=== PATIENT | female | born 1955 | race Caucasian/White ===

== ENCOUNTER 2016-12-29 05:06 | Day surgery (SDC) | payer OTHER ==
[2016-12-25 08:03] VITALS: BMI 36.0
[~2016-12-29] VITALS: Ht 152.4 cm; Wt 85.0 kg
[~2016-12-29 05:06] MED LIST: ALEN70TA2 PO; ATOR-24 PO; CHOL100027 PO; GABA-113 PO; HYDR-3983 PO; HYDR12.56 PO; LEVO100T7 PO; METO25TA3 PO; OXYB5TAB PO; PANT40TA PO; SERT-234 PO; SERT50TA PO; TRAZ100T29 PO
[2016-12-29] MEDS ORDERED: LORA-741 PO (05:42)
[2016-12-29 05:45] VITALS: BP 166/79; PULSE 69; TEMP 36.5; O2SAT 98; Ht 152.4 cm; Wt 85.0 kg
[2016-12-29] MEDS ORDERED: CEFAZOLIN 2000MG IV PUSH 10 ML IV SCH (06:00)
[2016-12-29] MEDS ORDERED: LACTATED RINGER'S 1000ML 1,000 ML IV SCH (06:00)
[2016-12-29] MEDS ORDERED: PROPOFOL IV EMULSION 10 MG/ML 20 ML VIAL IV ONE (06:49)
[2016-12-29] MEDS ORDERED: LIDOCAINE HCL 2% 2 ML VIAL (20MG/ML) ONE (06:49)
[2016-12-29] MEDS ORDERED: FENTANYL CITRATE INJ 50 MCG/1 ML 2 ML VIAL ONE (06:50)
[2016-12-29] MEDS ORDERED: MIDAZOLAM HCL 1 MG/ML 2ML VIAL ONE (06:50)
[2016-12-29] MEDS ORDERED: BUPIVACAINE 0.5 % 5 MG/1 ML MPF 30ML VIAL ONE (07:11)
[2016-12-29] MEDS ORDERED: BACITRACIN OINT 15 GM TUBE ONE (07:11)
[2016-12-29] MEDS ORDERED: LIDOCAINE HCL 1% 20 ML VIAL ONE (07:11)
--- NOTE | 2016-12-29 07:11 | History & Physical Bridge Note ---
H&P Re-Evaluation Bridge Note: I have examined the patient, reviewed the History & Physical and in the interval since the performance of the History & Physical I have noted the following changes of clinical significance: No changes noted
[2016-12-29] MEDS ORDERED: MEPERIDINE HCL 25 MG/ML CARP IV PRN (08:30)
[2016-12-29] MEDS ORDERED: EpHEDrine SULFATE INJ 50 MG/ML AMP IV PRN (08:30)
[2016-12-29] MEDS ORDERED: ONDANSETRON INJ 2 MG/ML 2 ML VIAL IV PRN ×2 (08:30→09:00)
[2016-12-29] MEDS ORDERED: HYDROmorphone INJ 1 MG/ML SYR IV PRN (08:30)
[2016-12-29] MEDS ORDERED: LABETALOL HCL IV 5 MG/ML 20ML IV PRN (08:30)
[2016-12-29] MEDS ORDERED: ATROPINE SULFATE 0.1 MG/ML 5ML SYR IV PRN (08:30)
--- NOTE | 2016-12-29 08:41 | DIAGNOSTIC IMAGING REPORT ---
CHEST 1 VIEW FRONTAL CLINICAL HISTORY: 61 years-old Female presenting with RT SIDE APORT INSERTION. TECHNIQUE: 2 fluoroscopic spot image(s) obtained as part of an intraoperative procedure. COMPARISON: 05/11/2013. FINDINGS/IMPRESSION: Right internal jugular Mediport terminates in the lower SVC. No kink or breakage of the line. Please see surgical report for further details. Fluoroscopy dosage (mGy): Not available. Fluoroscopy time: 4.9 seconds. Number of fluoroscopic spot images: 2. Electronically signed by: Devaughn Ozuna M.D. 12/29/2016 8:39 AM Dictated Date/Time: 12/29/2016 8:38 AM
--- NOTE | 2016-12-29 08:42 | [facility] Post Operative Brief Note ---
Immediate Operative Summary Operative Date Dec 29, 2016. Pre-Operative Diagnosis Malignant Neoplasm of the Uterus Post-Operative Diagnosis Malignant Neoplasm of the Uterus Procedure(s) Performed A Port Insertion right internal jugular vein Surgeon Dr. Simms Fire Alarm Dispatcher Surgeon(s) Julissa Perez PA-C Estimated Blood Loss 5 cc Findings patent right jugular vein Fluids (cc crystalloids) 700ml Specimens none per surgeon Drains none Anesthesia sedation + local Complication(s) None Disposition Recovery Room / PACU
[2016-12-29] MEDS: FENTANYL CITRATE INJ 50 MCG/1 ML 2 ML VIAL IV PRN ×2 (08:54→09:12)
--- NOTE | 2016-12-29 08:56 | Discharge Instructions ---
Discharge Instructions Date of Service Dec 29, 2016. Admission Reason for Admission: Malignant Neoplasm Of The Uterus Discharge Discharge Diagnosis / Problem: same Discharge Goals Goal(s): Decrease discomfort, Improve function Activity Recommendations Activity Limitations: as noted below No heavy lifting over 10 pounds for 1 week No repetitive movements with the right arm for 1 week no strenuous activity for 1 week No submerging incisions underwater for 2 weeks ( no bathing, swimming, or hot tubs) No driving while taking narcotic pain medication or until you are pain free . Instructions / Follow-Up Instructions / Follow-Up You may shower in 3 days, sponge bath and wash hair in meantime. Keep dressings on for 3 days and then remove. If they plan to use your port sooner that is okay just make sure you keep incision clean and dry and covered for the next 3 days. Leave steri strips on upper incision for 7 days and then remove Follow-up with Dr. Simms in 1 week or as scheduled, please call office at [phone] if you do not already have an appointment Current Hospital Diet Patient's current hospital diet: Discharge Diet Recommended Diet: Regular Diet Procedures Procedures Performed: A Port Insertion right internal jugular vein Pending Studies Studies pending at discharge: no Medical Emergencies . Who to Call and When: Medical Emergencies: If at any time you feel your situation is an emergency, please call 911 immediately. . Non-Emergent Contact Non-Emergency issues call your: Primary Care Provider, Surgeon Call Non-Emergent contact if: you have a fever, temperature is above 101.5, your pain is not controlled, your pain is worsening, wound has increased drainage, wound has increased redness, wound has increased pain . "Provider Documentation" section prepared by Julissa Perez. . VTE Core Measure Inpt VTE Proph given/why not?: SCD's [place] Drug Monitoring Program Search Results: patient reviewed within database, no issues identified
[2016-12-29] MEDS ORDERED: OXYC-57 PO (08:57)
[2016-12-29] MEDS ORDERED: ACETAMINOPHEN 325 MG TAB PO PRN (09:00)
[2016-12-29] MEDS ORDERED: MoRPHine SULFATE 4 MG/ML 1 ML CARP\\VIAL IV PRN (09:00)
[2016-12-29] MEDS ORDERED: OXYCODONE/ACETAMINOPHEN 5-325 TAB PO PRN ×2 (09:00)
[2016-12-29] MEDS ORDERED: MoRPHine SULFATE 2 MG/ML CARP IV PRN ×2 (09:00)
--- NOTE | 2016-12-29 09:07 | DIAGNOSTIC IMAGING REPORT ---
CHEST ONE VIEW PORTABLE CLINICAL HISTORY: 61 years-old Female presenting with s/p right IJ aport insertion. TECHNIQUE: Portable upright AP view of the chest was obtained. COMPARISON: 05/11/2013. FINDINGS: Right internal jugular Mediport terminates in the upper SVC. Atherosclerosis of aortic arch. Mild prominence of the cardiac silhouette, slightly increased from prior. Mild prominence of pulmonary vasculature. Lungs and pleural spaces clear. Osseous structures normal. Cholecystectomy clips. IMPRESSION: 1. Interval placement of right internal jugular Mediport, which terminates in the upper SVC. No pneumothorax. 2. Mild cardiomegaly suggested with possible volume overload. Electronically signed by: Devaughn Ozuna M.D. 12/29/2016 9:06 AM Dictated Date/Time: 12/29/2016 9:05 AM
[2016-12-29 09:46] VITALS: BP 134/73; PULSE 55; TEMP 36.4; O2SAT 93
[2016-12-29 10:14] VITALS: BP 127/78; PULSE 55; TEMP 36.3; O2SAT 93
--- NOTE | 2016-12-29 10:18 | Anesthesiology Progress Note ---
Anesthesia Post Op Note Date & Time Dec 29, 2016 at 10:18 Vital Signs Pain Intensity: 3 Vital Signs Past 12 Hours Date Time Temp Pulse Resp B/P (MAP) Pulse Ox O2 Delivery O2 Flow Rate FiO2 12/29/16 10:14 36.3 55 13 127/78 93 Room Air 0 12/29/16 09:46 36.4 55 18 134/73 93 Room Air 0 12/29/16 09:25 36.3 58 13 130/70 93 Room Air 12/29/16 09:15 69 12 123/84 92 Room Air 12/29/16 09:05 73 17 125/55 95 Oxymask 10 12/29/16 08:55 68 17 142/83 96 Oxymask 10 12/29/16 08:49 36.1 63 16 121/76 99 Oxymask 10 12/29/16 05:45 36.5 69 18 166/79 (108) 98 Room Air Notes Mental Status: alert / awake / arousable, participated in evaluation Pt Amnestic to Procedure: Yes Nausea / Vomiting: adequately controlled Pain: adequately controlled Airway Patency, RR, SpO2: stable & adequate BP & HR: stable & adequate Hydration State: stable & adequate Anesthetic Complications: no major complications apparent
--- NOTE | 2016-12-29 12:06 | OPERATIVE REPORT ---
DATE OF OPERATION: 12/29/2016 PREOPERATIVE DIAGNOSIS: The patient needs a yovv-A-nzabcadyi for chemotherapy. POSTOPERATIVE DIAGNOSIS: Same. OPERATION: Zgcr-M-oqtrqyjsz of right internal jugular vein. SURGEON: Julio C Simms MD FREEZING MACHINE OPERATOR: Julissa Perez PA-C ANESTHESIA: Conscious sedation plus local. ESTIMATED BLOOD LOSS: About 5 mL. IV FLUIDS: 700 mL. FINDINGS: Patent right internal jugular vein. COMPLICATIONS: None. INDICATIONS FOR THE PROCEDURE: This is a 61-year-old female who is referred for [id number] for her chemotherapy. I did talk to the patient about the benefit, risks, and alternate procedure. I indicated the risks may include, but not limited to such as bleeding, infection, injury to the lung, blood clot, arrhythmia of the heart, even or dysfunction, etc. The patient understands. She signed informed consent and I answered all questions. DETAILS OF PROCEDURE: We brought the patient to the OR and put the patient in the supine position. The patient received SCD on bilateral legs to prevent DVT. Also, the patient received 2 grams Ancef IV for prophylactic antibiotic. The patient received conscious sedation by the anesthesiology. The patient's right upper chest and right neck were prepped and draped in routine sterile fashion and after time out, we put the patient in Trendelenburg position and used an ultrasound to locate the right internal jugular vein and then, using 1% lidocaine, numbed the puncture site on the right neck. Then, using a 16-gauge needle, punctured the right internal jugular vein under ultrasound guide, easy blood returned and passed the wire. Then, we used a fluoro to confirm the wire located in the superior vena cava. Then, the injection of 1% lidocaine on the right upper chest and made about 3-cm incision on the right upper chest to create the pouch for the port. Hemostasis was obtained. Then, we passed the catheter through the tunnel we created in the right upper chest, the incision to the right neck and then we passed the sheath through the wire and dilator, removed the wire and passed the catheter through the dilator sheath, removed the sheath and then we connected the port on the right upper chest. I used 2-0 Prolene to fix the port on the right upper chest wall. Then, we used fluoroscopy to confirm the tip of the catheter located at the junction between the right internal jugular vein and superior vena cava near the right atrium. Then, I injected the heparin with saline through the port, easily blood returned. We injected 10 mL heparin with saline to flush the port, easy to flush and then we closed the incision by using 2-0 Vicryl continuous running and closed skin by using 4-0 Vicryl continuous running. We put the dressing on. The patient tolerated the procedure well. All instrument, needle and sponge count correct x2 at the end of case and the patient transferred to recovery room in stable condition. After procedure, I did talk to the patient and family member about the OR finding and procedure we did and the patient's family member understands. I also gave them postop care instructions. I attest to the content of the Intraoperative Record and any orders documented therein. Any exceptions are noted below. ALEJANDRO
[2016-12-30] MEDS ORDERED: CEFAZOLIN SOD 2000MG/10 ML IV PUSH IV ONE (06:00)
== END 2016-12-29 10:30 | disposition home or self-care (01) ==
LOC: C.ACU 05:06
PROVIDERS: ATTEND Surgery
DX: C55 Malignant neoplasm of uterus, part unspecified (principal); I10 Essential (primary) hypertension; E78.5 Hyperlipidemia, unspecified; E11.9 Type 2 diabetes mellitus without complications; E03.9 Hypothyroidism, unspecified; K91.2 Postsurgical malabsorption, not elsewhere classified; I80.299 Phlebitis and thrombophlebitis of other deep vessels of unspecified lower extremity; D68.51 Activated protein C resistance; E53.8 Deficiency of other specified B group vitamins; M81.0 Age-related osteoporosis without current pathological fracture; M17.10 Unilateral primary osteoarthritis, unspecified knee; F32.9 Major depressive disorder, single episode, unspecified; Z98.84 Bariatric surgery status; Z79.899 Other long term (current) drug therapy

== ENCOUNTER 2017-01-08 13:34 | Inpatient (IN) | payer OTHER ==
[~2017-01-08] VITALS: Ht 152.4 cm; Wt 82.2 kg
[~2017-01-08 13:34] MED LIST changes: +LORA-741 PO; +OXYC-57 PO
--- NOTE | 2017-01-08 14:08 | EMERGENCY ROOM VISIT NOTE ---
History First contact with patient: 13:44 Chief Complaint: ILLNESS Stated Complaint: LATHERGIC,DISORIENTED,NEEDS HELP TO GET AROUND History of Present Illness The patient is a 61 year old female who presents to the Emergency Room with complaints of confusion at the patient's family noticed earlier today. She is also been significantly weak. The patient has a history of uterine cancer. She started chemotherapy last week. She also reports nausea without vomiting. She has also had some diarrhea. She denies any pain. No infectious symptoms such as cough or sore throat. No sick contacts. No reports of a fever at home. The patient's daughter reports that she does have a history of bacteremia. Review of Systems 10 system review performed and negative unless noted in HPI or below Past Medical/Surgical History Medical Problems: (1) Benign hypertension (2) Dehydration (3) Diabetes mellitus type 2 (4) Dyslipidemia (5) Electrolyte abnormality (6) Hypothyroidism (7) Localized, primary osteoarthritis of the lower leg (8) Total replacement of hip Family History Patient reports no known family medical history. Social History Smoking Status: Never Smoker Alcohol Use: none Drug Use: none Marital Status: Occupation Status: disabled Current/Historical Medications Scheduled Alendronate Sodium (Fosamax), 70 MG PO WK Atorvastatin (Lipitor), 40 MG PO HS Cholecalciferol (Vitamin D 1000 Unit), 4,000 INTER.UNIT PO DAILY Gabapentin (Neurontin), 300 MG PO TID Hydrochlorothiazide (Hctz), 12.5 MG PO DAILY Hydrocodone/Acetaminophen 7.5MG/325MG ([place] 7.5MG/325MG), 1 TABLET PO TID Levothyroxine Sodium (Synthroid), 100 MCG PO DAILY Lorazepam (Ativan), 0.5 MG PO TID Metoprolol Succ (Toprol Xl) (Toprol-Xl), 50 MG PO DAILY Oxybutynin Chloride (Oxybutynin Chloride Er), 10 MG PO DAILY Pantoprazole (Protonix), 40 MG PO QAM Sertraline (Zoloft), 50 MG PO QAM Sertraline (Zoloft), 100 MG PO QAM Trazodone Hcl (Trazodone), 100 MG PO HS Scheduled PRN Oxycodone/Acetaminophen 5MG/325MG (Percocet 5MG/325MG), 1 TABLET PO Q6H PRN for Pain Physical Exam Vital Signs Date Time Temp Pulse Resp B/P (MAP) Pulse Ox O2 Delivery O2 Flow Rate FiO2 01/08/17 15:35 37.0 57 16 131/85 95 Room Air 01/08/17 13:38 36.4 86 18 133/89 92 Room Air Physical Exam VITALS: Vitals are noted on the nurse's note and reviewed by myself. Vital signs stable. GENERAL: 61-year-old female, in no acute distress, nondiaphoretic, SKIN: The skin was dry HEAD: Normocephalic atraumatic. MOUTH: Mucous membranes slightly dry NECK: Supple without nuchal rigidity. No JVD. HEART: Regular rate and rhythm without murmurs gallops or rubs. LUNGS: Clear to auscultation bilaterally without wheezes, rales or rhonchi. No accessory muscle use. ABDOMEN: Positive bowel sounds x 4.Soft, tenderness palpation in the epigastric region, without organomegaly. No guarding or rebound tenderness. MUSCULOSKELETAL: No muscle atrophy, erythema, or edema noted. Overall weakness noted. No focal weakness. NEURO: Patient was alert and oriented to person place and time. No focal neurological deficits. Medical Decision & Procedures ER Provider Diagnostic Interpretation: CT head without contrast Patient Name: TACOS AGUILERA Unit Number: [id number] Dictated: 01/08/171515 Transcribed: 01/08/171515 ARG Printed Date/Time: [~ rep prt dt]/[~ rep prt tm] [~ rep ct labl] - [~ rep ct ivnm] [facility] Radiology Department [place] [id number] Dictated: 01/08/171515 Transcribed: 01/08/171515 ARG Printed Date/Time: [~ rep prt dt]/[~ rep prt tm] [~ rep ct labl] - [~ rep ct ivnm] IMPRESSION: 1. No acute intracranial findings 2. Mild progressive white matter disease likely on a small vessel basis Electronically signed by: César Huizar M.D. 01/08/2017 3:18 PM Dictated Date/Time: 01/08/2017 3:16 PM The status of this report is Signed. Draft = Not yet reviewed or approved by Radiologist. Signed = Reviewed and approved by Radiologist. <AttendingPhy></AttendingPhy> <FamilyPhy>Pablo Holland D.O.</FamilyPhy> < PrimaryPhy>Pablo Holland D.O.</PrimaryPhy> <UnitNumber>[id number]</UnitNumber > <VisitNumber>[id number]</VisitNumber> <PatientName>TACOS AGUILERA</PatientName > <DateOfBirth>1955</DateOfBirth> <Location>[facility]</Location> <ServiceDate> 01/08/17</ServiceDate> <MNE>ESINDI</MNE> <OrderingPhy>Kailyn Lemus PA-C</ OrderingPhy> <OrderingPhyMNE>f rep ord dr powers</OrderingPhyMNE> <DictatingPhyMNE> f rep dict dr powers</DictatingPhyMNE> <CCListMNE>f rep ct mne</CCListMNE> < AdmittingPhyMNE>f pt admit dr powers</AdmittingPhyMNE> <AttendingPhyMNE>f pt attend dr powers</AttendingPhyMNE> <ConsultingPhyMNE>f pt consult dr powers</ConsultingPhyMNE> <FamilyPhyMNE>f pt fam dr powers</FamilyPhyMNE> <OtherPhyMNE>f pt other dr powers</OtherPhyMNE> < PrimaryPhyMNE>f pt prim care dr powers</PrimaryPhyMNE> <ReferringPhyMNE>f pt referring dr powers</ReferringPhyMNE> CXR 1. Mild basilar atelectasis 2. No evidence of failure 3. The right internal jugular A-Port catheter, appears to have partially retracted. The tip projects over the right internal jugular vein. Electronically signed by: César Huizar M.D. 01/08/2017 2:17 PM Dictated Date/Time: 01/08/2017 2:14 PM The status of this report is Signed. Draft = Not yet reviewed or approved by Radiologist. Signed = Reviewed and approved by Radiologist. <AttendingPhy></AttendingPhy> <FamilyPhy>Pablo Holland D.O.</FamilyPhy> < PrimaryPhy>Pablo Holland D.O.</PrimaryPhy> <UnitNumber>[id number]</UnitNumber > <VisitNumber>[id number]</VisitNumber> <PatientName>TACOS AGUILERA</PatientName > <DateOfBirth>1955</DateOfBirth> <Location>[facility]</Location> <ServiceDate> 01/08/17</ServiceDate> <MNE>ESINDI</MNE> <OrderingPhy>Kailyn Lemus PA-C</ OrderingPhy> <OrderingPhyMNE>f rep ord dr powers</OrderingPhyMNE> <DictatingPhyMNE> f rep dict dr powers</DictatingPhyMNE> <CCListMNE>f rep ct mne</CCListMNE> < AdmittingPhyMNE>f pt admit dr powers</AdmittingPhyMNE> <AttendingPhyMNE>f pt attend dr powers</AttendingPhyMNE> <ConsultingPhyMNE>f pt consult dr powers</ConsultingPhyMNE> <FamilyPhyMNE>f pt fam dr powers</FamilyPhyMNE> <OtherPhyMNE>f pt other dr powers</OtherPhyMNE> < PrimaryPhyMNE>f pt prim care dr powers</PrimaryPhyMNE> <ReferringPhyMNE Laboratory Results 01/08/17 14:30 Red Blood Count 4.17, Mean Corpuscular Volume 82.5, Mean Corpuscular Hemoglobin 26.9, Mean Corpuscular Hemoglobin Concent 32.6, Mean Platelet Volume 10.0, Neutrophils (%) (Auto) 50.1, Lymphocytes (%) (Auto) 23.7, Monocytes (%) (Auto) 25.2, Eosinophils (%) (Auto) 0.5, Basophils (%) (Auto) 0.0, Neutrophils # (Auto ) 1.95, Lymphocytes # (Auto) 0.92, Monocytes # (Auto) 0.98, Eosinophils # (Auto ) 0.02, Basophils # (Auto) 0.00 01/08/17 14:30 Test 01/08/17 14:30 01/08/17 15:48 White Blood Count 3.89 K/uL (4.8-10.8) Red Blood Count 4.17 M/uL (4.2-5.4) Hemoglobin 11.2 g/dL (12.0-16.0) Hematocrit 34.4 % (37-47) Mean Corpuscular Volume 82.5 fL (80-100) Mean Corpuscular Hemoglobin 26.9 pg (25-34) Mean Corpuscular Hemoglobin Concent 32.6 g/dl (32-36) Platelet Count 115 K/uL (130-400) Mean Platelet Volume 10.0 fL (7.4-10.4) Neutrophils (%) (Auto) 50.1 % Lymphocytes (%) (Auto) 23.7 % Monocytes (%) (Auto) 25.2 % Eosinophils (%) (Auto) 0.5 % Basophils (%) (Auto) 0.0 % Neutrophils # (Auto) 1.95 K/uL (1.4-6.5) Lymphocytes # (Auto) 0.92 K/uL (1.2-3.4) Monocytes # (Auto) 0.98 K/uL (0.11-0.59) Eosinophils # (Auto) 0.02 K/uL (0-0.5) Basophils # (Auto) 0.00 K/uL (0-0.2) RDW Standard Deviation 44.3 fL (36.4-46.3) RDW Coefficient of Variation 14.7 % (11.5-14.5) Immature Granulocyte % (Auto) 0.5 % Immature Granulocyte # (Auto) 0.02 K/uL (0.00-0.02) Toxic Granulation 1+ Prothrombin Time 10.3 SECONDS (9.0-12.0) Prothromb Time International Ratio 1.0 (0.9-1.1) Anion Gap 10.0 mmol/L (3-11) Est Creatinine Clear Calc Drug Dose 71.5 ml/min Estimated GFR () 89.5 Estimated GFR (Non- 77.2 BUN/Creatinine Ratio 24.3 (10-20) Lactic Acid Level 1.5 mmol/L (0.4-2.0) Calcium Level 9.0 mg/dl (8.5-10.1) Total Bilirubin 0.6 mg/dl (0.2-1) Aspartate Amino Transf (AST/SGOT) 8 U/L (15-37) Alanine Aminotransferase (ALT/SGPT) 19 U/L (12-78) Alkaline Phosphatase 91 U/L (45-117) Total Protein 7.3 gm/dl (6.4-8.2) Albumin 3.5 gm/dl (3.4-5.0) Globulin 3.8 gm/dl (2.5-4.0) Albumin/Globulin Ratio 0.9 (0.9-2) Lipase 47 U/L (73-393) Medications Administered Medications (Trade) Dose Ordered Sig/Alek Route Start Time Stop Time Status Last Admin Dose Admin Sodium Chloride 1,000 ml @ 999 mls/hr Q1H1M ONCE IV 01/08/17 14:15 01/08/17 15:15 DC 01/08/17 15:29 999 MLS/HR ED Course Patient was seen and examined Vital signs including blood pressure were reviewed medications list was verified with patient Labs were obtained, and a saline lock was established The patient was hydrated with 1 L of normal saline. I reviewed discharge instructions the patient. They voiced understanding and had no further questions. Medical Decision Differential diagnosis: Infectious etiology, metastatic disease, dehydration, This patient is a 61-year-old female that presents to the emergency department with the family complaining of weakness and confusion. On exam, the patient does appear significantly weak. She also appears slightly dehydrated. The patient has a history of uterine cancer and just started chemotherapy last week. Her labs reveal hyponatremia and addition to hypokalemia. I ordered a CT of the head to rule out metastatic disease. I do not feel the patient is strong enough to do well if she is discharged home. I believe she should be admitted for further workup and treatment. The patient's family is in agreement with this plan. This chart was completed in part utilizing [employer] Speech Voice Recognition software. Attempts were made to minimize the grammatical errors, random word insertions, pronoun errors and incomplete sentences. Any formal questions or concerns about the content, text or information contained within the body of this dictation should be directly addressed to the provider for clarification. Medication Reconcilliation Current Medication List: was personally reviewed by me Blood Pressure Screening Patient's blood pressure: Normal blood pressure Impression Primary Impression: Weakness Additional Impression: Hypokalemia Departure Information Referrals Pablo Holland D.OCedric (PCP) Patient Instructions My [facility] Problem Qualifiers
[2017-01-08] MEDS ORDERED: SODIUM CHLORIDE 0.9% 1000ML 1,000 ML IV ONE (14:15)
--- NOTE | 2017-01-08 14:18 | DIAGNOSTIC IMAGING REPORT ---
CHEST ONE VIEW PORTABLE CLINICAL HISTORY: Confusion. Sepsis. COMPARISON STUDY: 12/29/2016 FINDINGS: The cardiac and mediastinal contours remain stable. There is a right internal jugular A-Port catheter. The tip appears to be positioned more proximal than on the preceding study. There is no failure. There is no lobar consolidation. There are mild basilar atelectatic changes.[ IMPRESSION: 1. Mild basilar atelectasis 2. No evidence of failure 3. The right internal jugular A-Port catheter, appears to have partially retracted. The tip projects over the right internal jugular vein. Electronically signed by: César Huizar M.D. 01/08/2017 2:17 PM Dictated Date/Time: 01/08/2017 2:14 PM
[2017-01-08 14:44] LABS: HEMATOCRIT 34.4 % (37-47); MEAN CELL VOLUME 82.5 fL (80-100); MEAN CORPUSCULAR HEMOGLOBIN 26.9 pg (25-34); MEAN CORPUSCULAR HGB CONC 32.6 g/dl (32-36); PLATELET COUNT 115 K/uL (130-400); RED BLOOD COUNT 4.17 M/uL (4.2-5.4); WHITE BLOOD COUNT 3.89 K/uL (4.8-10.8)
[2017-01-08] MEDS ORDERED: LEVO100T PO (14:53)
[2017-01-08] MEDS ORDERED: METO50TA7 PO (14:53)
[2017-01-08 15:03] LABS: BUN/CREATININE RATIO 24.3 (10-20); CREATININE 0.83 mg/dl (0.60-1.20); POTASSIUM 2.9 mmol/L (3.5-5.1)
[2017-01-08 15:06] LABS: ALB/GLOB RATIO 0.9 (0.9-2)
[2017-01-08] MEDS ORDERED: NSS + 20MEQ KCL 1000ML 1,000 ML IV SCH ×2 (15:15→19:30)
--- NOTE | 2017-01-08 15:19 | DIAGNOSTIC IMAGING REPORT ---
CT HEAD WITHOUT CONTRAST (CT) CLINICAL HISTORY: Confusion, lethargy. Uterine carcinoma. COMPARISON STUDY: 12/22/2010 TECHNIQUE: Axial CT of the brain is performed from the vertex to the skull base. IV contrast was not administered for this examination. A dose lowering technique was utilized adhering to the principles of ALARA. CT DOSE: 537.48 mGy.cm FINDINGS: No intra or extra-axial mass lesions are visualized. There is no CT evidence of acute cortical infarction. There is no evidence of midline shift. There is no acute hemorrhage. No calvarial fractures are visualized. There are moderate white matter hypodensities likely on a small vessel basis. There is no evidence of pathologic ventricular dilatation. There is no evidence of acute sinusitis IMPRESSION: 1. No acute intracranial findings 2. Mild progressive white matter disease likely on a small vessel basis Electronically signed by: César Huizar M.D. 01/08/2017 3:18 PM Dictated Date/Time: 01/08/2017 3:16 PM
[2017-01-08 15:24] LABS: COMPLETE YES; EOS % 0.5 %; IG% 0.5 %; LYMPH % 23.7 %; LYMPH ABS # 0.92 K/uL (1.2-3.4); MONO % 25.2 %; NEUT % 50.1 %; TOXIC GRANULATION 1+
[2017-01-08] MEDS ORDERED: POTASSIUM CHLORIDE 10 MEQ / 100ML WTR IV STA (15:43)
[2017-01-08] MEDS ORDERED: HYDROCODONE/ACETAMINOPHEN 7.5/325MG TAB PO PRN (16:00)
[2017-01-08] MEDS ORDERED: POTASSIUM CHLR 10 MEQ / WTR 10 MEQ IV SCH (16:00)
[2017-01-08] MEDS ORDERED: OXYCODONE/ACETAMINOPHEN 5-325 TAB PO PRN (16:00)
--- NOTE | 2017-01-08 16:11 | History and Physical ---
History & Physical Date & Time of Service: Jan 08, 2017 at 16:11 Chief Complaint: Lathergic,Disoriented,Needs Help To Get Around Primary Care Physician: Pablo Holland D.O. History of Present Illness Source: patient, clinic records (ER NOTE ) this is a 61 yo F with medical hx of Endometrial CA -recently diagnosed, heterozygous Factor V mutation , hx of left lower ext DVT off anticoagulation brought to ED by her Daughter -as pt was found very weak, lethargic, pt been having ongoing Nausea , vomiting and diarrhea for past few days , very poor PO intake this morning pt appeared to confused , difficult arouse , required 2 person assist to transfer pt diagnosed with Uterine CA on 11/06/2016 , developed post menopauseal bleed -Biopsy of endometrial showed Endometrial CA with Clear cells features Has been followed with Heme Onc Dr García CT abdomen /pelvis on 11/26/2016 -Uterine mass -non intraabdominal or pelvic lymphadenopathy CA 125 level ~95 on 11/28/16 pt had A port placement on rt jugular vein on 12/29/16 pt received ist Cycle Chemo -Carboplatin/Taxol on 12/31/16 pt has been having persisted nausea , vomiting , diarrhea after Chemo was very weak and tired , stayed in bed most of the time very poor appetite , this morning her family found her to be confused and disoriented no reports of fever , chills , no cough In the ER pt appeared to be dehydrated , pancytopenic , Hyponatremic , hypokalemic Past Medical/Surgical History Medical Problems: (1) Benign hypertension Status: Chronic (2) Diabetes mellitus type 2 Status: Chronic (3) Dyslipidemia Status: Chronic (4) Hypothyroidism Status: Chronic (5) Localized, primary osteoarthritis of the lower leg Status: Chronic (6) Total replacement of hip Status: Resolved Family History Patient reports no known family medical history. Social History Smoking Status: Never Smoker Drug Use: none Marital Status: Housing status: lives with family Occupational Status: disabled Immunizations History of Influenza Vaccine: No Influenza Vaccine Date: Mar 07, 2010 History of Tetanus Vaccine?: UTD History of Pneumococcal: Yes Pneumococcal Date: Jun 06, 2006 History of Hepatitis B Vaccine: No Multi-Drug Resistant Organisms History of MDRO: No Allergies Coded Allergies: No Known Allergies (Verified , 12/29/16) Home Medications Scheduled Alendronate Sodium (Fosamax), 70 MG PO WK Atorvastatin (Lipitor), 40 MG PO HS Cholecalciferol (Vitamin D 1000 Unit), 4,000 INTER.UNIT PO DAILY Gabapentin (Neurontin), 300 MG PO TID Hydrochlorothiazide (Hctz), 12.5 MG PO DAILY Hydrocodone/Acetaminophen 7.5MG/325MG ([place] 7.5MG/325MG), 1 TABLET PO TID Levothyroxine Sodium (Synthroid), 100 MCG PO DAILY Lorazepam (Ativan), 0.5 MG PO TID Metoprolol Succ (Toprol Xl) (Toprol-Xl), 50 MG PO DAILY Oxybutynin Chloride (Oxybutynin Chloride Er), 10 MG PO DAILY Pantoprazole (Protonix), 40 MG PO QAM Sertraline (Zoloft), 50 MG PO QAM Sertraline (Zoloft), 100 MG PO QAM Trazodone Hcl (Trazodone), 100 MG PO HS Scheduled PRN Oxycodone/Acetaminophen 5MG/325MG (Percocet 5MG/325MG), 1 TABLET PO Q6H PRN for Pain Review of Systems Constitutional: + weight loss, + weakness, + fatigue Abdomen: + nausea, + vomiting Musculoskeletal: + joint pain, + muscle pain Neurologic: + weakness, + numbness/tingling, + vertigo, + balance problems, + problem reported (confusion ) Endocrine: + fatigue Physical Exam Vital Signs Date Time Temp Pulse Resp B/P (MAP) Pulse Ox O2 Delivery O2 Flow Rate FiO2 01/08/17 15:35 37.0 57 16 131/85 95 Room Air 01/08/17 13:38 36.4 86 18 133/89 92 Room Air General Appearance: no apparent distress Head: normocephalic, atraumatic Eyes: normal inspection, PERRL, EOMI, sclerae normal Neck: thyroid normal, no JVD, no carotid bruits, trachea midline Respiratory/Chest: lungs clear, normal breath sounds, no respiratory distress Cardiovascular: regular rate, rhythm, no JVD Abdomen/GI: normal bowel sounds, non tender, soft Extremities/Musculoskelatal: no calf tenderness, no pedal edema Neurologic/Psych: no motor/sensory deficits, alert, + disoriented Skin: normal color, warm/dry, no rash Diagnostics Laboratory Results Results Past 24 Hours Test 01/08/17 14:02 01/08/17 14:30 01/08/17 15:48 01/08/17 16:09 Range/Units White Blood Count 3.89 4.8-10.8 K/uL Red Blood Count 4.17 4.2-5.4 M/uL Hemoglobin 11.2 12.0-16.0 g/dL Hematocrit 34.4 37-47 % Mean Corpuscular Volume 82.5 80-100 fL Mean Corpuscular Hemoglobin 26.9 25-34 pg Mean Corpuscular Hemoglobin Concent 32.6 32-36 g/dl Platelet Count 115 130-400 K/uL Mean Platelet Volume 10.0 7.4-10.4 fL Neutrophils (%) (Auto) 50.1 % Lymphocytes (%) (Auto) 23.7 % Monocytes (%) (Auto) 25.2 % Eosinophils (%) (Auto) 0.5 % Basophils (%) (Auto) 0.0 % Neutrophils # (Auto) 1.95 1.4-6.5 K/uL Lymphocytes # (Auto) 0.92 1.2-3.4 K/uL Monocytes # (Auto) 0.98 0.11-0.59 K/uL Eosinophils # (Auto) 0.02 0-0.5 K/uL Basophils # (Auto) 0.00 0-0.2 K/uL RDW Standard Deviation 44.3 36.4-46.3 fL RDW Coefficient of Variation 14.7 11.5-14.5 % Immature Granulocyte % (Auto) 0.5 % Immature Granulocyte # (Auto) 0.02 0.00-0.02 K/uL Toxic Granulation 1+ Sodium Level 130 136-145 mmol/L Potassium Level 2.9 3.5-5.1 mmol/L Chloride Level 97 98-107 mmol/L Carbon Dioxide Level 23 21-32 mmol/L Anion Gap 10.0 3-11 mmol/L Blood Urea Nitrogen 20 7-18 mg/dl Creatinine 0.83 0.60-1.20 mg/dl Est Creatinine Clear Calc Drug Dose 71.5 ml/min Estimated GFR () 89.5 Estimated GFR (Non- 77.2 BUN/Creatinine Ratio 24.3 10-20 Random Glucose 160 70-99 mg/dl Lactic Acid Level 1.5 0.4-2.0 mmol/L Calcium Level 9.0 8.5-10.1 mg/dl Total Bilirubin 0.6 0.2-1 mg/dl Aspartate Amino Transf (AST/SGOT) 8 15-37 U/L Alanine Aminotransferase (ALT/SGPT) 19 12-78 U/L Alkaline Phosphatase 91 45-117 U/L Total Protein 7.3 6.4-8.2 gm/dl Albumin 3.5 3.4-5.0 gm/dl Globulin 3.8 2.5-4.0 gm/dl Albumin/Globulin Ratio 0.9 0.9-2 Lipase 47 73-393 U/L Microbiology Results 01/08/17 Blood Culture, Received Pending 01/08/17 Blood Culture, Received Pending Diagnostic Radiology CT ABDOMEN /PELVIS WITH CONTRAST : IMPRESSION: 1. Surgically absent gallbladder with stable mild intra and extrahepatic biliary ductal dilatation 2. No evidence of bowel obstruction. No evidence of free air 3. No evidence of acute appendicitis. No evidence of acute diverticulitis 4. Mild sigmoid wall thickening, a finding which potentially is chronic 5. No evidence of metastatic disease CHEST XRAY : IMPRESSION: 1. Mild basilar atelectasis 2. No evidence of failure 3. The right internal jugular A-Port catheter, appears to have partially retracted. The tip projects over the right internal jugular vein. CT HEAD WITH OUT CONTRAST : IMPRESSION: 1. No acute intracranial findings 2. Mild progressive white matter disease likely on a small vessel basis Impression Assessment and Plan DEHYDRATION /GENERALIZED WEAKNESS : possible due to recent Chemo tx has persisted nausea /vomiting , diarrhea /poor appetite since chemo thx on given IV fluid bolus in ED ; renal function stable Cr 0.8/GFR 77 will continue IVF monitor vol status PT/OT eval when medically stable CONFUSION/LETHARGY : possible metabolic encephalopathy due to dehydration and electrolyte derangement R/O infection blood /urine culture ordered CT head without contrast -no acute change UTERINE CA ON CHEMO: follows with Heme onc Dr García got Chemo 12/31/16 with Carboplatin /Taxol got Neulesta 0.6 ml SC pancytopenia due to recent chemo follow daily CBC NAUSEA /VOMITING /DIARRHEA : possible due to recent Chemo tx CT abdomen /pelvis shows no evidence of obstruction , no intraabdominal lymphadenopathy ordered for stool for C diff cont supportive care with PRN Zofran IVF clear liquid diet for now advanced as tolerated ELECTROLYTE DERANGEMENTS : due to GI loss /poor appetite presents with Hyponatremia , low K Mg level 1.9 given K supplement started on IVF with NSS + 20 Kcl follow PRP , and correct accordingly DEPRESSION : cont SSRI HYPERLIPIDEMIA : hold statin till GI symptom improves HTN : Cont Toprol XL 50 mg po daily , continue with holding parameters for hypotension and bradycardia HYPOTHYROIDISM : cont levothyroxine 100mch daily recent lab : TSH 12/31/16 1.93 ANXIETY DISORDER : Ativan PRN GERD : on Protonix FULL CODE DVT PROPHYLAXIS : Moderate to high risk sub q Lovenox DISPOSITION : expected to be discharged home when medically stable PT/OT eval prior to discharge home will benefit form home health and home PT social service consulted for discharge planning Medicine follow up with Dr Holland Heme onc follow up with Dr Roberto García Level of Care Telemetry Resuscitation Status FULL RESUSCITATION VTE Prophylaxis VTE Risk Assessment Done? Y/N: Yes Risk Level: High Given or contraindicated: Enoxaparin (Lovenox)SQ Additional Copies To Roberto García M.D. Sulman, Scott A., D.O.
[2017-01-08] MEDS ORDERED: ONDANSETRON INJ 2 MG/ML 2 ML VIAL IV PRN (16:15)
[2017-01-08] MEDS ORDERED: MAGNESIUM HYDROXIDE SUSP 30 ML UDC PO PRN (16:15)
[2017-01-08] MEDS ORDERED: POLYETHYLENE (MIRALAX) 17 GM PACK PO PRN (16:15)
[2017-01-08] MEDS ORDERED: ALUMINUM/MAGNESIUM/SIMETH (MAALOX MAX) 30 ML UDC PO PRN (16:15)
[2017-01-08] MEDS ORDERED: ACETAMINOPHEN 325 MG TAB PO PRN (16:15)
[2017-01-08] MEDS ORDERED: ZOLPIDEM TARTRATE 5 MG TAB PO PRN (16:15)
[2017-01-08] MEDS ORDERED: NITROGLYCERIN 0.4 MG SL PER TAB CHARGE SL PRN (16:15)
[2017-01-08 16:27] LABS: PROTHROMBIN TIME (PATIENT) 10.3 SECONDS (9.0-12.0)
[2017-01-08 17:25] VITALS: BP 165/99; PULSE 82; TEMP 36.6; O2SAT 98; Ht 152.4 cm; Wt 82.2 kg
[2017-01-08 18:56] VITALS: BP 107/75; PULSE 75; TEMP 36.8; O2SAT 95
[2017-01-08 19:30] LABS: MANUAL MICROSCOPIC REQUIRED? NO; REVIEW REQ? NO; URINE APPEARANCE CLEAR (CLEAR); URINE BILIRUBIN NEG (NEG); URINE COLOR YELLOW; URINE EPITHELIAL CELL AUTO >30 /lpf (0-5); URINE NITRITE NEG (NEG); URINE SPECIFIC GRAVITY 1.018 (1.000-1.030); UROBILINOGEN NEG (NEG)
[2017-01-08] MEDS: LORAZEPAM 0.5 MG TAB PO PRN (20:09)
[2017-01-08 20:21] LABS: BUN/CREATININE RATIO 23.9 (10-20); CALCIUM 8.5 mg/dl (8.5-10.1); CREATININE 0.81 mg/dl (0.60-1.20); POTASSIUM 2.8 mmol/L (3.5-5.1)
[2017-01-08] MEDS ORDERED: OPTIRAY 320 IV PRN (21:00)
--- NOTE | 2017-01-08 21:08 | DIAGNOSTIC IMAGING REPORT ---
CT ABD/PELVIS IV CONTRAST ONLY CLINICAL HISTORY: Uterine carcinoma. Abdominal pain. Nausea, vomiting. COMPARISON STUDY: 01/19/2011 TECHNIQUE: Following the IV administration of 115 mL of Optiray-320, CT scan of the abdomen and pelvis was performed from the lung bases to the proximal femurs. Images are reviewed in the axial, sagittal, and coronal planes. IV contrast was administered without complication. A dose lowering technique was utilized adhering to the principles of ALARA. CT DOSE: 920.57 mGy.cm FINDINGS: Lower chest: There are mild basilar atelectatic changes. Liver: There is mild hepatic steatosis. There is minimal central intrahepatic biliary ductal dilatation. There is a 4 mm hypodensity within the liver at the junction of the right left lobes anteriorly. This is of doubtful clinical significance. The common bile duct measures 11 mm. This remain similar to the prior study. Gallbladder: Surgically absent Spleen: Normal in size and attenuation. Pancreas: Unremarkable. Adrenal glands: Unremarkable. Kidneys: There is symmetric renal cortical enhancement. The kidneys are normal in size without hydronephrosis. Bowel: There are no transition zones indicate bowel obstruction. There is no evidence of acute diverticulitis. There is no evidence of acute appendicitis. There is mild sigmoid wall thickening. It is possible this is chronic. Peritoneum: There is no intraperitoneal free air or abdominal ascites. Vasculature: The abdominal aorta is normal in course and caliber. Adenopathy: None. Pelvic viscera: The bladder, and pelvic viscera are unremarkable. Skeletal structures: There are postsurgical changes involving the left hip. No destructive lesions are visualized. IMPRESSION: 1. Surgically absent gallbladder with stable mild intra and extrahepatic biliary ductal dilatation 2. No evidence of bowel obstruction. No evidence of free air 3. No evidence of acute appendicitis. No evidence of acute diverticulitis 4. Mild sigmoid wall thickening, a finding which potentially is chronic 5. No evidence of metastatic disease Electronically signed by: César Huizar M.D. 01/08/2017 9:06 PM Dictated Date/Time: 01/08/2017 9:00 PM
[2017-01-08] MEDS: POTASSIUM CHLR 10 MEQ / WTR 10 MEQ in PREMIXED WATER 100 ML IV SCH ×3 (21:23→23:46)
[2017-01-08] MEDS: ENOXAPARIN 40 MG/0.4 ML SYR SC SCH (21:24)
[2017-01-08 23:58] VITALS: BP 108/80; PULSE 68; TEMP 36.5; O2SAT 96
[2017-01-09] MEDS: POTASSIUM CHLR 10 MEQ / WTR 10 MEQ in PREMIXED WATER 100 ML IV SCH (00:59)
[2017-01-09 04:13] VITALS: BP 139/83; PULSE 70; TEMP 36.9; O2SAT 96
[2017-01-09] MEDS: LEVOTHYROXINE 100 MCG TAB PO SCH (05:40)
[2017-01-09 05:51] LABS: HEMATOCRIT 28.7 % (37-47); MEAN CELL VOLUME 83.7 fL (80-100); MEAN CORPUSCULAR HEMOGLOBIN 26.5 pg (25-34); MEAN CORPUSCULAR HGB CONC 31.7 g/dl (32-36); RED BLOOD COUNT 3.43 M/uL (4.2-5.4); WHITE BLOOD COUNT 2.94 K/uL (4.8-10.8)
[2017-01-09 06:27] LABS: MEAN PLATELET VOLUME 10.4 fL (7.4-10.4); PLATELET COUNT 88 K/uL (130-400); PLT ESTIMATE DECREASED
[2017-01-09 06:31] LABS: BUN/CREATININE RATIO 23.7 (10-20); CREATININE 0.73 mg/dl (0.60-1.20); MAGNESIUM 1.8 mg/dl (1.8-2.4); POTASSIUM 3.5 mmol/L (3.5-5.1)
[2017-01-09] MEDS: SERTRALINE HCL 100 MG TAB PO SCH (07:47)
[2017-01-09] MEDS: PANTOprazole SOD 40 MG TAB PO SCH (07:47)
[2017-01-09] MEDS: SERTRALINE HCL 50 MG TAB PO SCH (07:47)
[2017-01-09] MEDS: METOPROLOL SUCC 50MG EXT REL TAB PO SCH (07:47)
[2017-01-09] MEDS: OXYBUTYNIN CHLORIDE 5 MG TABCR PO SCH (07:48)
[2017-01-09] MEDS: POTASSIUM CHLORIDE 20 MEQ TABCR PO SCH (07:48)
[2017-01-09] MEDS: LORAZEPAM 0.5 MG TAB PO PRN ×2 (07:48→15:30)
[2017-01-09 08:25] VITALS: BP 128/78; PULSE 67; TEMP 36.7; O2SAT 96
[2017-01-09] MEDS ORDERED: POTASSIUM CHLORIDE 10 MEQ TABCR PO ONE (09:15)
--- NOTE | 2017-01-09 09:22 | Progress Note ---
Internal Med Progress Note Date of Service: Jan 09, 2017. Provider Documentation: SUBJECTIVE: Seen and examined at bedside Denies Nausea/Vomiting/Abd pain Still has diarrhea Denies chest pain, SOB Getting PT this morning Mental status improved OBJECTIVE: Vital Signs-as noted below Physical Exam: Vitals signs as noted above General Appearance:Moderately built and nourished, no apparent distress Head: normocephalic, Atraumatic Eyes: normal inspection, EOMI, PERRLA Neck: supple, Trachea midline Respiratory/Chest: Normal breath sounds, CTA Cardiovascular: S1, S2, No murmur Abdomen/GI:Soft, Non tender, Bowel sounds present Extremities/Musculoskelatal:normal inspection, Trace edema Neurologic/Psych:AAOX3, grossly no focal neurological deficits Skin: normal color, warm Lab data as noted below. ASSESSMENT & PLAN: Confusion/Lethargy: Encephalopathy likely metabolic CT head: no acute process Mental status improving Blood cultures pending monitor electrolytes Pancytopenia: Secondary to Chemotherapy Monitor CBC Uterine Cancer: follows with Dr García Last Chemotherapy on 12/31/16 with Carboplatin /Taxol Also got Neulesta 0.6 ml SC Nausea/Vomiting/Diarrhea: Dehydration Denies weakness Likely secondary to recent Chemotherapy CT abd:no evidence of obstruction Stool for C.diff: pending S/P IV fluids Nausea improved clear liquid diet, advance as tolerated PT/OT Hypokalemia: Due to GI loses Replace and monitor Mag levels normal Depression: continue zoloft Hyperlipidemia: hold statin for now HTN: Continue metoprolol Hypothyroidism: continue levothyroxine Anxiety Disorder: Ativan PRN GERD: Continue Protonix Code Status: Full Code DVT Px: Moderate to high risk (Uterine Cancer, Factor V mutation) SQ Lovenox (monitor platelets) Disposition: Plan to discharge home when medically stable PT/OT eval social service consulted Medicine follow up with Dr Skyler Gomez onc follow up with Dr Roberto García Vital Signs: Date Time Temp Pulse Resp B/P (MAP) Pulse Ox O2 Delivery O2 Flow Rate FiO2 01/09/17 08:25 36.7 67 16 128/78 (95) 96 Room Air 01/09/17 08:00 Room Air 01/09/17 04:13 36.9 70 16 139/83 (101) 96 Room Air 01/09/17 04:00 Room Air 01/09/17 00:00 Room Air 01/08/17 23:58 36.5 68 18 108/80 (89) 96 Room Air 01/08/17 20:00 Room Air 01/08/17 18:56 36.8 75 22 107/75 (86) 95 Room Air 01/08/17 17:25 36.6 82 24 165/99 98 Room Air 01/08/17 16:42 37.0 79 18 131/85 97 Room Air 01/08/17 15:35 37.0 57 16 131/85 95 Room Air 01/08/17 13:38 36.4 86 18 133/89 92 Room Air Lab Results: Results Past 24 Hours Test 01/08/17 14:30 01/08/17 19:10 01/08/17 19:20 01/09/17 05:37 Range/Units White Blood Count 3.89 2.94 4.8-10.8 K/uL Red Blood Count 4.17 3.43 4.2-5.4 M/uL Hemoglobin 11.2 9.1 12.0-16.0 g/dL Hematocrit 34.4 28.7 37-47 % Mean Corpuscular Volume 82.5 83.7 80-100 fL Mean Corpuscular Hemoglobin 26.9 26.5 25-34 pg Mean Corpuscular Hemoglobin Concent 32.6 31.7 32-36 g/dl Platelet Count 115 88 130-400 K/uL Mean Platelet Volume 10.0 10.4 7.4-10.4 fL Neutrophils (%) (Auto) 50.1 % Lymphocytes (%) (Auto) 23.7 % Monocytes (%) (Auto) 25.2 % Eosinophils (%) (Auto) 0.5 % Basophils (%) (Auto) 0.0 % Neutrophils # (Auto) 1.95 1.4-6.5 K/uL Lymphocytes # (Auto) 0.92 1.2-3.4 K/uL Monocytes # (Auto) 0.98 0.11-0.59 K/uL Eosinophils # (Auto) 0.02 0-0.5 K/uL Basophils # (Auto) 0.00 0-0.2 K/uL RDW Standard Deviation 44.3 46.3 36.4-46.3 fL RDW Coefficient of Variation 14.7 15.0 11.5-14.5 % Immature Granulocyte % (Auto) 0.5 % Immature Granulocyte # (Auto) 0.02 0.00-0.02 K/uL Toxic Granulation 1+ Prothrombin Time 10.3 9.0-12.0 SECONDS Prothromb Time International Ratio 1.0 0.9-1.1 Sodium Level 130 133 136 136-145 mmol/L Potassium Level 2.9 2.8 3.5 3.5-5.1 mmol/L Chloride Level 97 101 104 98-107 mmol/L Carbon Dioxide Level 23 23 23 21-32 mmol/L Anion Gap 10.0 9.0 9.0 3-11 mmol/L Blood Urea Nitrogen 20 19 17 7-18 mg/dl Creatinine 0.83 0.81 0.73 0.60-1.20 mg/dl Est Creatinine Clear Calc Drug Dose 71.5 66.7 78.8 ml/min Estimated GFR () 89.5 92.1 104.5 Estimated GFR (Non- 77.2 79.5 90.1 BUN/Creatinine Ratio 24.3 23.9 23.7 10-20 Random Glucose 160 172 140 70-99 mg/dl Lactic Acid Level 1.5 0.4-2.0 mmol/L Calcium Level 9.0 8.5 8.0 8.5-10.1 mg/dl Total Bilirubin 0.6 0.2-1 mg/dl Aspartate Amino Transf (AST/SGOT) 8 15-37 U/L Alanine Aminotransferase (ALT/SGPT) 19 12-78 U/L Alkaline Phosphatase 91 45-117 U/L Total Protein 7.3 6.4-8.2 gm/dl Albumin 3.5 3.4-5.0 gm/dl Globulin 3.8 2.5-4.0 gm/dl Albumin/Globulin Ratio 0.9 0.9-2 Lipase 47 73-393 U/L Urine Color YELLOW Urine Appearance CLEAR CLEAR Urine pH 6.0 4.5-7.5 Urine Specific [place] 1.018 1.000-1.030 Urine Protein NEG NEG Urine Glucose (UA) NEG NEG Urine Ketones TRACE NEG Urine Occult Blood 2+ NEG Urine Nitrite NEG NEG Urine Bilirubin NEG NEG Urine Urobilinogen NEG NEG Urine Leukocyte Esterase SMALL NEG Urine WBC (Auto) 5-10 0-5 /hpf Urine RBC (Auto) 10-30 0-4 /hpf Urine Hyaline Casts (Auto) 1-5 0-5 /lpf Urine Epithelial Cells (Auto) >30 0-5 /lpf Urine Bacteria (Auto) NEG NEG Magnesium Level 1.9 1.8 1.8-2.4 mg/dl Procalcitonin 0.11 0-0.5 ng/ml Platelet Estimate DECREASED Microbiology Results 01/08/17 Blood Culture, Received Pending 01/08/17 Blood Culture, Received Pending
[2017-01-09 12:11] VITALS: BP 119/63; PULSE 72; TEMP 36.3; O2SAT 95
[2017-01-09 15:08] VITALS: BP 124/63; PULSE 70; TEMP 37; O2SAT 99
--- NOTE | 2017-01-09 17:42 | Medical Consult ---
Consultation Date of Consultation: Jan 09, 2017. Attending Physician: Alirio Otoole MD History of Present Illness Hematology/Oncology consult: Evaluation management of uterine cancer, now admitted for altered mental status, electrolyte imbalance, poor oral intake Date of consultation: 01/09/[address] Cotto. HPI: 61 year female, a case of endometrial carcinoma, clear cell variant, localized disease involving the endometrium, no pelvic lymph kristin involvement, elevated CA 125 level around 95, presently she is receiving neoadjuvant chemotherapy with paclitaxel and carboplatin, received 1st cycle of chemotherapy on 12/31/2016. She did receive prophylactic Neulasta on 01/01/2017. Also has evidence of iron deficiency, received intravenous iron the form of Venofer on 12/31/2016. Now she is admitted at [facility] for poor oral intake, dehydration, change in mental status, found to have electrolyte imbalance mainly hyponatremia, imaging study showed no new findings noted in the brain, also complains of nonspecific abdominal discomfort, she received IV hydration, I saw her at bedside, she is sitting quite comfortable in the bed, she says that her appetite has improved, able to eat and drink better, no fever, no constipation, no bleeding from any sites, no leg edema. REVIEW OF SYSTEMS: GENERAL: No recent change in weight, weaknes and fatigue present, no fever, sweats or chills. SKIN: No skin rash, no bruising. HEAD: No new headache, no dizziness. EYES: No recent change in the vision, no diplopia, EARS: No earache no tinnitus, NOSE: No epistaxis, No nasal discharge or stuffiness, MOUTH: No sores, no dysphagia, no hoarseness of voice, NECK: No lumps, No swelling in thyroid area. No stiffness. PULMONARY: No cough, No shortness of breath, no hemoptysis, no chest pain, No wheezing. CARDIOVASCULAR: No anginal chest pain, no PND, no orthopnea. No palpitation, no leg edema. No syncope. GASTROINTESTINAL: Nonspecific epigastric discomfort, she takes Percocet for the symptomatic treatment, no nausea or vomiting. No diarrhea, No constipation. No blood in stool or black tarry stools. No abdominal distention. UROLOGIC: No burning urination. No hematuria. MUSCULOSKELETAL: No joint pain, No joint swelling, no muscle weakness. HEMATOLOGIC: No anemia, no bleeding disorder, No bruising. No history of blood transfusion. NEUROLOGIC: No seizures, no focal weakness, no speech difficulty, No memory disturbances. No tingling or numbness of the extremities. PSYCHIATRIC: No depression. No anxiety. No psychosis. SLEEP: No sleep disorder. Past medical and surgical history: Other important the medical history: -History of gastric bypass surgery in 2006 at [facility]. -Persistent the abdominal wall wound with some slight discharge since the gastric bypass surgery. ~She says that she was seen in the wound clinic in [place], presently she is not on any antibiotic treatment. -Vitamin B12 deficiency, she is on Vitamin B12 replacement therapy (injection) every 3 monthly at [facility]. -DJD, she had bilateral knee joint replacement surgery and the left hip surgery x2, she is on Neurontin for the symptomatic treatment. -Hypothyroidism. -Factor V Leiden mutation was noted 1st time in 2013. ~She says that she had blood clot involving the left groin earlier when she underwent the gastric bypass surgery, she received oral Coumadin treatment for about 1 month at that time. ~Presently she is not on any anticoagulant treatment. - Osteoporosis, she is on Fosamax therapy. - She had 3 in the past. -She had open cholecystectomy. -Abdominal wall hernia repair 4 to 5 years back at [facility]. - Brain atrophy which is somewhat disproportionate to the her age noted in the brain MRI. Social history: Nonsmoker, denies any ETOH abuse. Family history: No family history of cancer diagnosis. Medications: Please review her chart for detailed list of medications. Allergies: None On exam: - Alert and oriented x3, well built woman, not in any distress. - HEENT: no icterus, no pallor, Throat: Normal. - Neck: No palpable cervical lymphadenopathy. - Chest: clear to auscultation. - Abdomen: soft, nontender, no hepatomegaly, no splenomegaly. - No focal neuro deficit. - Extremities: no finger clubbing, no leg edema. Lab: Blood workup done on 01/08/2017: -WBC 3800, H&H of 11.234, Platelet count of 115,000 -BUN/Creat: 19/0.8, calcium 8.5 Procalcitonin--> 0.11 -Normal liver function test next and potassium level at 2.9 -sodium 130 Blood workup done on 01/09/2017: -WBC 2900, H&H of 9.1/28, [place] [address], -BUN/Creat: 17 surgery 0.7, calcium 8.0, potassium level 3.5 -sodium 136. Imaging: -CT scan of the abdomen pelvis done on 01/08/2017 showed no signs of bowel obstruction, no evidence of acute appendicitis or diverticulitis, mild sigmoid wall thickening. No evidence of metastatic disease noted in the abdomen. S/P cholecystectomy noted. -CT scan of the head done without intravenous contrast--> no acute abnormality noted. ASSESSMENT AND PLAN: 61-year-old female, a case of uterine cancer, localized disease but she could not go for surgical intervention because of chronic abdominal wall wound for the last several years, presently she is receiving neoadjuvant chemotherapy with paclitaxel and carboplatin, received 1st cycle of chemotherapy on 12/31/2006, she did receive prophylactic Neulasta to prevent febrile neutropenia, now she is admitted Hospital for change in mental status, found to have hyponatremia, hypokalemia, with the correction of the electrolytes with IV hydration, her clinical condition has improved, has some nonspecific abdominal pain, imaging studies of the abdomen did not show any new suspicious findings, CT scan of the head also did not show any new findings, I reviewed her blood workup done today, pancytopenia as noted which is related to the recent chemotherapy treatment and the likely to improve in the next few days. No further recommendations from oncology. Will continue the current medical management Thanks for the consultation. Dr. Roberto García Hem/Onc (This note was completed using the dictation program Fluency Direct. As such, there may be misspellings, word substitutions, or other variations that should not change the essence of the clinical content of this encounter note. If there is need for further clarification, please direct questions to the provider listed above.) Past Medical/Surgical History Medical Problems: (1) Femur fracture, left Status: Acute (2) Hypokalemia Status: Acute (3) Weakness Status: Acute Family History Patient reports no known family medical history. Social History Smoking Status: Never Smoker Drug Use: none Marital Status: Occupation Status: disabled Allergies Coded Allergies: No Known Allergies (Verified , 12/29/16) Current Inpatient Medications Current Inpatient Medications Medications (Trade) Dose Ordered Sig/Alek Route Start Time Stop Time Status Last Admin Dose Admin Acetaminophen/ Hydrocodone Bitart ([place] 7.5/325 Tab) 1 tab TID PRN PO 01/08/17 16:00 01/22/17 15:59 Levothyroxine Sodium (Synthroid Tab) 100 mcg DAILYBB PO 01/09/17 06:00 02/08/17 05:59 01/09/17 05:40 100 MCG Metoprolol Succinate (Toprol Xl Tab) 50 mg DAILY PO 01/09/17 09:00 02/08/17 08:59 01/09/17 07:47 50 MG Oxybutynin Chloride (Ditropan-Xl Tab) 10 mg DAILY PO 01/09/17 09:00 02/08/17 08:59 01/09/17 07:48 10 MG Oxycodone/ Acetaminophen (Percocet 5-325mg Tab) 1 tab Q6H PRN PO 01/08/17 16:00 01/22/17 15:59 01/09/17 16:34 1 TAB Pantoprazole Sodium (Protonix Tab) 40 mg QAM PO 01/09/17 09:00 02/08/17 08:59 01/09/17 07:47 40 MG Sertraline HCl (Zoloft Tab) 50 mg QAM PO 01/09/17 09:00 02/08/17 08:59 01/09/17 07:47 50 MG Sertraline HCl (Zoloft Tab) 100 mg QAM PO 01/09/17 09:00 02/08/17 08:59 01/09/17 07:47 100 MG Enoxaparin Sodium (Lovenox Inj) 40 mg Q24H SC 01/08/17 21:00 02/07/17 20:59 01/08/17 21:24 40 MG Acetaminophen (Tylenol Tab) 650 mg Q4H PRN PO 01/08/17 16:15 02/07/17 16:14 Al Hydrox/Mg Hydrox/Simethicone (Maalox Max Susp) 15 ml Q4H PRN PO 01/08/17 16:15 02/07/17 16:14 Magnesium Hydroxide (Milk Of Magnesia Susp) 30 ml Q12H PRN PO 01/08/17 16:15 02/07/17 16:14 Ondansetron HCl (Zofran Inj) 4 mg Q6H PRN IV 01/08/17 16:15 02/07/17 16:14 01/09/17 07:42 4 MG Nitroglycerin (Nitrostat Tab) 0.4 mg UD PRN SL 01/08/17 16:15 02/07/17 16:14 Polyethylene (Miralax Powder Packet) 17 gm DAILY PRN PO 01/08/17 16:15 02/07/17 16:14 01/09/17 05:40 17 GM Lorazepam (Ativan Tab) 0.5 mg Q6H PRN PO 01/08/17 18:30 02/07/17 18:29 01/09/17 15:30 0.5 MG Potassium Chloride (Klor-Con Tab) 20 meq QAM PO 01/09/17 09:00 02/08/17 08:59 01/09/17 07:48 20 MEQ Ioversol (Optiray 320) 115 ml UD PRN IV 01/08/17 21:00 01/12/17 20:59 Heparin Sodium (Porcine) (Heparin 100 Unit/ml 5ml Flush) 5 ml PRN PRN IV 01/09/17 00:15 02/08/17 00:14 01/09/17 11:27 5 ML Physical Exam Date Time Temp Pulse Resp B/P (MAP) Pulse Ox O2 Delivery O2 Flow Rate FiO2 01/09/17 15:25 Room Air 01/09/17 15:08 37.0 70 18 124/63 (83) 99 Room Air 01/09/17 12:11 36.3 72 16 119/63 (81) 95 Room Air 01/09/17 12:00 Room Air 01/09/17 08:25 36.7 67 16 128/78 (95) 96 Room Air 01/09/17 08:00 Room Air 01/09/17 04:13 36.9 70 16 139/83 (101) 96 Room Air 01/09/17 04:00 Room Air 01/09/17 00:00 Room Air 01/08/17 23:58 36.5 68 18 108/80 (89) 96 Room Air 01/08/17 20:00 Room Air 01/08/17 18:56 36.8 75 22 107/75 (86) 95 Room Air Laboratory Results Last 24 Hours Test 01/08/17 19:10 01/08/17 19:20 01/09/17 05:37 Urine Color YELLOW Urine Appearance CLEAR Urine pH 6.0 Urine Specific [place] 1.018 Urine Protein NEG Urine Glucose (UA) NEG Urine Ketones TRACE Urine Occult Blood 2+ Urine Nitrite NEG Urine Bilirubin NEG Urine Urobilinogen NEG Urine Leukocyte Esterase SMALL Urine WBC (Auto) 5-10 /hpf Urine RBC (Auto) 10-30 /hpf Urine Hyaline Casts (Auto) 1-5 /lpf Urine Epithelial Cells (Auto) >30 /lpf Urine Bacteria (Auto) NEG Sodium Level 133 mmol/L 136 mmol/L Potassium Level 2.8 mmol/L 3.5 mmol/L Chloride Level 101 mmol/L 104 mmol/L Carbon Dioxide Level 23 mmol/L 23 mmol/L Anion Gap 9.0 mmol/L 9.0 mmol/L Blood Urea Nitrogen 19 mg/dl 17 mg/dl Creatinine 0.81 mg/dl 0.73 mg/dl Est Creatinine Clear Calc Drug Dose 66.7 ml/min 78.8 ml/min Estimated GFR () 92.1 104.5 Estimated GFR (Non- 79.5 90.1 BUN/Creatinine Ratio 23.9 23.7 Random Glucose 172 mg/dl 140 mg/dl Calcium Level 8.5 mg/dl 8.0 mg/dl Magnesium Level 1.9 mg/dl 1.8 mg/dl Procalcitonin 0.11 ng/ml White Blood Count 2.94 K/uL Red Blood Count 3.43 M/uL Hemoglobin 9.1 g/dL Hematocrit 28.7 % Mean Corpuscular Volume 83.7 fL Mean Corpuscular Hemoglobin 26.5 pg Mean Corpuscular Hemoglobin Concent 31.7 g/dl RDW Standard Deviation 46.3 fL RDW Coefficient of Variation 15.0 % Platelet Count 88 K/uL Mean Platelet Volume 10.4 fL Platelet Estimate DECREASED
[2017-01-09 19:25] VITALS: BP 113/66; PULSE 67; TEMP 36.8; O2SAT 97
[2017-01-09] MEDS: ENOXAPARIN 40 MG/0.4 ML SYR SC SCH (21:20)
[2017-01-10 00:20] VITALS: BP 131/69; PULSE 70; TEMP 36.7; O2SAT 97
[2017-01-10 03:18] VITALS: BP 134/94; PULSE 69; TEMP 36.9; O2SAT 95
[2017-01-10] MEDS: LEVOTHYROXINE 100 MCG TAB PO SCH (06:13)
[2017-01-10 07:05] LABS: HEMATOCRIT 29.2 % (37-47); MEAN CELL VOLUME 84.9 fL (80-100); MEAN CORPUSCULAR HEMOGLOBIN 26.5 pg (25-34); MEAN CORPUSCULAR HGB CONC 31.2 g/dl (32-36); RED BLOOD COUNT 3.44 M/uL (4.2-5.4); WHITE BLOOD COUNT 3.02 K/uL (4.8-10.8)
[2017-01-10 07:22] LABS: BUN/CREATININE RATIO 19.8 (10-20); CALCIUM 8.5 mg/dl (8.5-10.1); CREATININE 0.6 mg/dl (0.60-1.20); POTASSIUM 3.9 mmol/L (3.5-5.1)
[2017-01-10 07:37] LABS: PLATELET COUNT 68 K/uL (130-400)
[2017-01-10 07:50] LABS: COMPLETE YES; DOHLE BODIES 1+; EOS % 0.7 %; LYMPH % 26.8 %; LYMPH ABS # 0.81 K/uL (1.2-3.4); MONO % 11.9 %; NEUT % 59.6 %; TOXIC GRANULATION 1+
[2017-01-10] MEDS: POTASSIUM CHLORIDE 20 MEQ TABCR PO SCH (08:21)
[2017-01-10 08:22] VITALS: BP 121/73; PULSE 77; TEMP 37.1; O2SAT 95
[2017-01-10] MEDS: SERTRALINE HCL 50 MG TAB PO SCH (08:22)
[2017-01-10] MEDS: METOPROLOL SUCC 50MG EXT REL TAB PO SCH (08:22)
[2017-01-10] MEDS: OXYBUTYNIN CHLORIDE 5 MG TABCR PO SCH (08:22)
[2017-01-10] MEDS: SERTRALINE HCL 100 MG TAB PO SCH (08:22)
[2017-01-10] MEDS: PANTOprazole SOD 40 MG TAB PO SCH (08:22)
--- NOTE | 2017-01-10 10:18 | Progress Note ---
Internal Med Progress Note Date of Service: Jan 10, 2017. Provider Documentation: SUBJECTIVE: Seen and examined at bedside Doing well today Denies Nausea/Vomiting/Abd pain, chest pain, SOB Mental status back to baseline Discussed with : reviewed CBC: OK to DC home OBJECTIVE: Vital Signs-as noted below Physical Exam: Vitals signs as noted above General Appearance:Moderately built and nourished, no apparent distress Head: normocephalic, Atraumatic Eyes: normal inspection, EOMI, PERRLA Neck: supple, Trachea midline Respiratory/Chest: Normal breath sounds, CTA Cardiovascular: S1, S2, No murmur Abdomen/GI:Soft, Non tender, Bowel sounds present Extremities/Musculoskelatal:normal inspection, Trace edema Neurologic/Psych:AAOX3, grossly no focal neurological deficits Skin: normal color, warm Lab data as noted below. ASSESSMENT & PLAN: Confusion/Lethargy: Resolved Encephalopathy likely metabolic CT head: no acute process Mental status back to baseline Blood cultures: No growth to date monitor electrolytes Pancytopenia: Secondary to Chemotherapy Monitor CBC Uterine Cancer: follows with Dr García Last Chemotherapy on 12/31/16 with Carboplatin /Taxol Also got Neulesta 0.6 ml SC Appreciate Oncology Input. Discussed with on 01/10/17 (no monitoring of CBC needed upon DC) Nausea/Vomiting/Diarrhea: Dehydration Denies weakness Likely secondary to recent Chemotherapy CT abd:no evidence of obstruction Stool for C.diff: pending S/P IV fluids Nausea/diarrhea resolved PT/OT Hypokalemia: Due to GI loses Resolved monitor Depression: continue zoloft Hyperlipidemia: hold statin for now HTN: Continue metoprolol Hypothyroidism: continue levothyroxine Anxiety Disorder: Ativan PRN GERD: Continue Protonix Code Status: Full Code DVT Px: Moderate to high risk (Uterine Cancer, Factor V mutation) SQ Lovenox (monitor platelets) Disposition: Plan to discharge home today PT/OT eval social service consulted Follow up with Dr Holland in 1 week as advised Follow up with Heme oncology Dr Roberto García as advised Seek immediate medical attention if your symptoms reoccur or worsen Vital Signs: Date Time Temp Pulse Resp B/P (MAP) Pulse Ox O2 Delivery O2 Flow Rate FiO2 01/10/17 08:22 37.1 77 16 121/73 (89) 95 Room Air 01/10/17 08:05 Room Air 01/10/17 04:00 Room Air 01/10/17 03:18 36.9 69 16 134/94 (107) 95 Room Air 01/10/17 00:20 36.7 70 20 131/69 (89) 97 Room Air 01/10/17 00:00 Room Air 01/09/17 20:29 Room Air 01/09/17 19:25 36.8 67 18 113/66 (82) 97 Room Air 01/09/17 15:25 Room Air 01/09/17 15:08 37.0 70 18 124/63 (83) 99 Room Air 01/09/17 12:11 36.3 72 16 119/63 (81) 95 Room Air 01/09/17 12:00 Room Air Lab Results: Results Past 24 Hours Test 01/10/17 06:48 Range/Units White Blood Count 3.02 4.8-10.8 K/uL Red Blood Count 3.44 4.2-5.4 M/uL Hemoglobin 9.1 12.0-16.0 g/dL Hematocrit 29.2 37-47 % Mean Corpuscular Volume 84.9 80-100 fL Mean Corpuscular Hemoglobin 26.5 25-34 pg Mean Corpuscular Hemoglobin Concent 31.2 32-36 g/dl Platelet Count 68 130-400 K/uL Mean Platelet Volume 10.0 7.4-10.4 fL Neutrophils (%) (Auto) 59.6 % Lymphocytes (%) (Auto) 26.8 % Monocytes (%) (Auto) 11.9 % Eosinophils (%) (Auto) 0.7 % Basophils (%) (Auto) 0.0 % Neutrophils # (Auto) 1.80 1.4-6.5 K/uL Lymphocytes # (Auto) 0.81 1.2-3.4 K/uL Monocytes # (Auto) 0.36 0.11-0.59 K/uL Eosinophils # (Auto) 0.02 0-0.5 K/uL Basophils # (Auto) 0.00 0-0.2 K/uL RDW Standard Deviation 46.8 36.4-46.3 fL RDW Coefficient of Variation 15.1 11.5-14.5 % Immature Granulocyte % (Auto) 1.0 % Immature Granulocyte # (Auto) 0.03 0.00-0.02 K/uL Toxic Granulation 1+ Dohle Bodies 1+ Sodium Level 139 136-145 mmol/L Potassium Level 3.9 3.5-5.1 mmol/L Chloride Level 107 98-107 mmol/L Carbon Dioxide Level 23 21-32 mmol/L Anion Gap 9.0 3-11 mmol/L Blood Urea Nitrogen 12 7-18 mg/dl Creatinine 0.60 0.60-1.20 mg/dl Est Creatinine Clear Calc Drug Dose 95.9 ml/min Estimated GFR () 115.6 Estimated GFR (Non- 99.8 BUN/Creatinine Ratio 19.8 10-20 Random Glucose 111 70-99 mg/dl Calcium Level 8.5 8.5-10.1 mg/dl Magnesium Level 2.0 1.8-2.4 mg/dl
--- NOTE | 2017-01-10 10:36 | Discharge Summary ---
Discharge Summary Date of Service Jan 10, 2017. Discharge Summary Admission Date: Jan 08, 2017 at 15:56 Discharge Date: Jan 10, 2017 Discharge Disposition: Home Principal Diagnosis: Encephalopathy, Pancytopenia secondary to chemotherapy, Dehydration Procedures: CT head: 1. No acute intracranial findings 2. Mild progressive white matter disease likely on a small vessel basis CT ABD: 1. Surgically absent gallbladder with stable mild intra and extrahepatic biliary ductal dilatation 2. No evidence of bowel obstruction. No evidence of free air 3. No evidence of acute appendicitis. No evidence of acute diverticulitis 4. Mild sigmoid wall thickening, a finding which potentially is chronic 5. No evidence of metastatic disease CXR: 1. Mild basilar atelectasis 2. No evidence of failure 3. The right internal jugular A-Port catheter, appears to have partially retracted. The tip projects over the right internal jugular vein. Consultations: Oncology Pending Studies/Follow-Up: Follow up with Dr Holland in 1 week as advised Follow up with Heme oncology Dr Roberto García as advised Seek immediate medical attention if your symptoms reoccur or worsen Medication Reconciliation Continued Medications: Alendronate Sodium (Fosamax) 70 Mg Tab 70 MG PO WK, TAB TAKE THIS MEDICATION EVERY THURSDAY WITH 8 OUNCES OF WATER, 30 MINUTES BEFORE FIRST MEAL OF THE DAY. REMAIN UPRIGHT FOR 30 MINUTES AFTER TAKING. Atorvastatin (Lipitor) 40 Mg Tab 40 MG PO HS, TAB Cholecalciferol (Vitamin D 1000 Unit) 1,000 Unit Cap 4000 INTER.UNIT PO DAILY, CAP Gabapentin (Neurontin) 300 Mg Cap 300 MG PO TID, CAP Hydrochlorothiazide (Hctz) 12.5 Mg Cap 12.5 MG PO DAILY, TAB Hydrocodone/Acetaminophen 7.5MG/325MG (Van 7.5MG/325MG) Tab 1 TABLET PO TID for Pain, TAB Levothyroxine Sodium (Synthroid) 100 Mcg Tab 100 MCG PO DAILY, TAB Lorazepam (Ativan) 0.5 Mg Tab 0.5 MG PO TID, TAB Metoprolol Succ (Toprol Xl) (Toprol-Xl) 50 Mg Tabcr 50 MG PO DAILY, #30 TAB Oxybutynin Chloride (Oxybutynin Chloride Er) 5 Mg Tab 10 MG PO DAILY Oxycodone/Acetaminophen 5MG/325MG (Percocet 5MG/325MG) Tab 1 TABLET PO Q6H PRN for Pain, #12 TAB Pantoprazole (Protonix) 40 Mg Tab 40 MG PO QAM, #30 TAB Sertraline (Zoloft) 50 Mg Tab 50 MG PO QAM, TAB Sertraline (Zoloft) 100 Mg Tab 100 MG PO QAM, TAB Trazodone Hcl (Trazodone) 100 Mg Tab 100 MG PO HS, 0 Refills Admission Information HPI (per Admitting provider): this is a 61 yo F with medical hx of Endometrial CA -recently diagnosed, heterozygous Factor V mutation , hx of left lower ext DVT off anticoagulation brought to ED by her Daughter -as pt was found very weak, lethargic, pt been having ongoing Nausea , vomiting and diarrhea for past few days , very poor PO intake this morning pt appeared to confused , difficult arouse , required 2 person assist to transfer pt diagnosed with Uterine CA on 11/06/2016 , developed post menopauseal bleed -Biopsy of endometrial showed Endometrial CA with Clear cells features Has been followed with Heme Onc Dr García CT abdomen /pelvis on 11/26/2016 -Uterine mass -non intraabdominal or pelvic lymphadenopathy CA 125 level ~95 on 11/28/16 pt had A port placement on rt jugular vein on 12/29/16 pt received ist Cycle Chemo -Carboplatin/Taxol on 12/31/16 pt has been having persisted nausea , vomiting , diarrhea after Chemo was very weak and tired , stayed in bed most of the time very poor appetite , this morning her family found her to be confused and disoriented no reports of fever , chills , no cough In the ER pt appeared to be dehydrated , pancytopenic , Hyponatremic , hypokalemic Physical Exam (per Admitting): General Appearance: no apparent distress Head: normocephalic, atraumatic Eyes: normal inspection, PERRL, EOMI, sclerae normal Neck: thyroid normal, no JVD, no carotid bruits, trachea midline Respiratory/Chest: lungs clear, normal breath sounds, no respiratory distress Cardiovascular: regular rate, rhythm, no JVD Abdomen/GI: normal bowel sounds, non tender, soft Extremities/Musculoskelatal: no calf tenderness, no pedal edema Neurologic/Psych: no motor/sensory deficits, alert, + disoriented Skin: normal color, warm/dry, no rash Hospital Course Confusion/Lethargy: Resolved Encephalopathy likely metabolic CT head: no acute process Mental status back to baseline Blood cultures: No growth to date monitor electrolytes Pancytopenia: Secondary to Chemotherapy Monitor CBC Uterine Cancer: follows with Dr García Last Chemotherapy on 12/31/16 with Carboplatin /Taxol Also got Neulesta 0.6 ml SC Appreciate Oncology Input. Discussed with on 01/10/17 (no monitoring of CBC needed upon DC) Nausea/Vomiting/Diarrhea: Dehydration Denies weakness Likely secondary to recent Chemotherapy CT abd:no evidence of obstruction Stool for C.diff: pending S/P IV fluids Nausea/diarrhea resolved PT/OT Hypokalemia: Due to GI loses Resolved monitor Depression: continue zoloft Hyperlipidemia: hold statin for now HTN: Continue metoprolol Hypothyroidism: continue levothyroxine Anxiety Disorder: Ativan PRN GERD: Continue Protonix Code Status: Full Code DVT Px: Moderate to high risk (Uterine Cancer, Factor V mutation) SQ Lovenox (monitor platelets) Disposition: Plan to discharge home today PT/OT eval social service consulted Follow up with Dr Holland in 1 week as advised Follow up with Heme oncology Dr Roberto García as advised Seek immediate medical attention if your symptoms reoccur or worsen Total time spent on discharge =35 minutes This includes examination of the patient, discharge planning, medication reconciliation, and communication with other providers. Discharge Instructions Discharge Instructions Date of Service Jan 10, 2017. Admission Reason for Admission: Dehydration, Electrolyte Abnormality Discharge Discharge Diagnosis / Problem: Encephalopathy, Pancytopenia secondary to chemotherapy, Dehydration Discharge Goals Goal(s): Decrease discomfort, Improve function Activity Recommendations Activity Limitations: resume your previous activity Exercise/Sports Limitations: as tolerated . Instructions / Follow-Up Instructions / Follow-Up Follow up with Dr Holland in 1 week as advised Follow up with Heme oncology Dr Roberto García as advised Seek immediate medical attention if your symptoms reoccur or worsen Current Hospital Diet Patient's current hospital diet: AHA Diet (Heart Healthy) Discharge Diet Recommended Diet: AHA Diet (Heart Healthy) Pending Studies Studies pending at discharge: no Medical Emergencies . Who to Call and When: Medical Emergencies: If at any time you feel your situation is an emergency, please call 911 immediately. . Non-Emergent Contact Non-Emergency issues call your: Primary Care Provider, Oncologist Call Non-Emergent contact if: you have a fever, your pain is not controlled, your pain is worsening, your pain is unusual for you, your pain is concerning you, you have any medication questions Seek immediate medical attention if your symptoms reoccur or worsen . . "Provider Documentation" section prepared by Alirio Otoole. . VTE Core Measure Inpt VTE Proph given/why not?: Enoxaparin (Lovenox)SQ <Electronically signed by Alirio Otoole MD> Signed: 01/10/17 1035 Signed: The status of this report is Signed * If report status is Draft, the document has not been finalized by the responsible provider.
[2017-01-10 10:56] VITALS: BP 121/73; PULSE 77; TEMP 37.1; O2SAT 95
== END 2017-01-10 12:26 | disposition home or self-care (01) | DRG 808 ==
LOC: C.EDB 13:37 → C.2E 15:56 → CANRESERV 16:02 → EDBEDREQ 16:02 → ENRESERV 16:02
PROVIDERS: ADMIT Hospitalist; ATTEND Internal Medicine
DX: D61.810 Antineoplastic chemotherapy induced pancytopenia (principal); G93.41 Metabolic encephalopathy; E87.1 Hypo-osmolality and hyponatremia; D68.51 Activated protein C resistance; E87.6 Hypokalemia; R11.2 Nausea with vomiting, unspecified; R19.7 Diarrhea, unspecified; T45.1X5A Adverse effect of antineoplastic and immunosuppressive drugs, initial encounter; C55 Malignant neoplasm of uterus, part unspecified; E11.9 Type 2 diabetes mellitus without complications; I10 Essential (primary) hypertension; E03.9 Hypothyroidism, unspecified; F41.9 Anxiety disorder, unspecified; E78.5 Hyperlipidemia, unspecified; F32.9 Major depressive disorder, single episode, unspecified; E53.8 Deficiency of other specified B group vitamins; K21.9 Gastro-esophageal reflux disease without esophagitis; Z79.899 Other long term (current) drug therapy; Z86.718 Personal history of other venous thrombosis and embolism

== ENCOUNTER 2017-01-29 09:32 | Inpatient (IN) | payer OTHER ==
[~2017-01-29] VITALS: Ht 152.4 cm; Wt 83.0 kg
[~2017-01-29 09:32] MED LIST changes: +LEVO100T PO; -LEVO100T7 PO; -METO25TA3 PO; +METO50TA7 PO
[2017-01-29] MEDS ORDERED: SODIUM CHLORIDE 0.9% 1000ML 2,000 ML IV STA (09:57)
[2017-01-29] MEDS ORDERED: ONDANSETRON INJ 2 MG/ML 2 ML VIAL IV STA (09:57)
--- NOTE | 2017-01-29 10:03 | EMERGENCY ROOM VISIT NOTE ---
History Report prepared by Candida: Lucie Patel Under the Supervision of: Dr. Don Hollingsworth M.D. First contact with patient: 09:50 Chief Complaint: NAUSEA Stated Complaint: GENERALIZED WEAKNESS/DEHYDRATION Nursing Triage Summary: hx uterine cancer. sent to ed by dr. holland. pt phoned office and he feels she may be dehydrated or the flu. generalized weakness started 3 wks ago. nausea and vomiting off and on "not constant", she is to get chemo next Thursday. History of Present Illness The patient is a 61 year old female who presents to the Emergency Room with complaints of persistent weakness that began three weeks ago. She currently rates her discomfort as a 5/10 in severity. The patient states that since she has been experiencing generalized weakness, dehydration, and flu-like symptoms. She additionally reports intermittent nausea, vomiting, and diarrhea. The patient states that she has been experiencing generalized body aches. She states that she has been experiencing chills. The patient denies any known fever. The patient states that she has been urinating, but states that her urine has been concentrated. She states that she has tried taking Zofran at home for her nausea without relief of her symptoms. The patient states that she is currently undergoing chemotherapy treatments for uterine cancer. She states that her last treatment was four weeks ago, and states that she is scheduled for another treatment in five days. The patient denies any recent fall or trauma. She denies any cough, congestion, sore throat, or abdominal pain. She states that she consulted her PCP's office this morning and was instructed to come to the emergency department for further evaluation and treatment. Source of History: patient Onset: three weeks ago Position: other (global) Symptom Intensity: 5/10 Quality: other (weakness) Timing: other (persistent) Associated Symptoms: + chills, + nausea, + vomiting, + diarrhea, + urinary symptoms (concentrated urine), No fevers, No sorethroat, No cough, No abdominal pain Review of Systems See HPI for pertinent positives & negatives. A total of 10 systems reviewed and were otherwise negative. Past Medical & Surgical Medical Problems: (1) VAUGHN (acute kidney injury) (2) Benign hypertension (3) Dehydration (4) Diabetes mellitus type 2 (5) Dyslipidemia (6) Electrolyte abnormality (7) Hypothyroidism (8) Localized, primary osteoarthritis of the lower leg (9) Total replacement of hip Family History Patient reports no known family medical history. Social History Smoking Status: Never Smoker Alcohol Use: none Drug Use: none Marital Status: Occupation Status: disabled Current/Historical Medications Scheduled Alendronate Sodium (Fosamax), 70 MG PO WK Atorvastatin (Lipitor), 40 MG PO HS Cholecalciferol (Vitamin D 1000 Unit), 4,000 INTER.UNIT PO DAILY Gabapentin (Neurontin), 300 MG PO TID Hydrochlorothiazide (Hctz), 12.5 MG PO DAILY Levothyroxine Sodium (Synthroid), 100 MCG PO DAILY Metoprolol Succ (Toprol Xl) (Toprol-Xl), 50 MG PO QAM Oxybutynin Chloride (Oxybutynin Chloride Er), 10 MG PO QAM Pantoprazole (Protonix), 40 MG PO QAM Sertraline (Zoloft), 200 MG PO HS Trazodone Hcl (Trazodone), 100 MG PO HS Scheduled PRN Acetaminophen (Tylenol), 1,000 MG PO Q6 PRN for Pain or Fever Lorazepam (Ativan), 0.5 MG PO BID PRN for Anxiety Allergies Coded Allergies: No Known Allergies (Verified , 01/29/17) Physical Exam Vital Signs Date Time Temp Pulse Resp B/P (MAP) Pulse Ox O2 Delivery O2 Flow Rate FiO2 01/29/17 12:01 106/68 01/29/17 11:38 113/75 01/29/17 11:32 99 22 99 01/29/17 11:13 123/74 01/29/17 11:11 99 18 96/71 99 Room Air 97 123/74 01/29/17 11:11 96/71 01/29/17 11:02 100 15 98 01/29/17 10:32 98 28 97 01/29/17 10:02 96 13 98 01/29/17 09:52 97 Room Air 01/29/17 09:46 97 01/29/17 09:43 37.4 96 19 106/85 97 Room Air 01/29/17 09:41 106/85 Physical Exam GENERAL: Patient is in no acute distress. HEENT: No acute trauma, normocephalic atraumatic, Dry mucous membranes, no nasal congestion, no scleral icterus. NECK: No stridor, no adenopathy, no meningismus, trachea is midline. LUNGS: Clear to auscultation bilaterally, no wheeze, no rhonchi, breath sounds equal. HEART: Without murmurs gallops or rubs, regular rate and rhythm. ABDOMEN: Soft, nontender, bowel sounds positive, no hernias, no peritonitis. EXTREMITIES: No cyanosis or edema, full range of motion of all the joints without pain or difficulty, no signs for acute trauma. NEUROLOGIC: Oriented x 3, no acute motor or sensory deficits, no focal weakness. SKIN: No rash, no jaundice, no diaphoresis. Medical Decision & Procedures ER Provider Diagnostic Interpretation: Orthostatic vital signs are negative X-ray results as stated below per interpretation by me and the radiologist: CHEST ONE VIEW PORTABLE CLINICAL HISTORY: EVALUATE ALTERED MENTAL STATUS/WEAKNESS dyspnea COMPARISON STUDY: N 05/05/2016 FINDINGS: Central catheter in superior vena cava. Lungs are clear. Diaphragms smooth. IMPRESSION: No acute process. The above report was generated using voice recognition software. It may contain grammatical, syntax or spelling errors. Electronically signed by: Mark Fonseca M.D. 01/29/2017 10:40 AM Dictated Date/Time: 01/29/2017 10:39 AM Laboratory Results 01/29/17 10:35 Red Blood Count 3.03, Mean Corpuscular Volume 87.8, Mean Corpuscular Hemoglobin 27.7, Mean Corpuscular Hemoglobin Concent 31.6, Mean Platelet Volume 9.3, Neutrophils (%) (Auto) 83.2, Lymphocytes (%) (Auto) 7.7, Monocytes (%) (Auto) 5.3, Eosinophils (%) (Auto) 0.5, Basophils (%) (Auto) 0.0, Neutrophils # (Auto) 1.74, Lymphocytes # (Auto) 0.16, Monocytes # (Auto) 0.11, Eosinophils # (Auto) 0.01, Basophils # (Auto) 0.00 01/29/17 10:35 Test 01/29/17 10:35 White Blood Count 2.09 K/uL (4.8-10.8) Red Blood Count 3.03 M/uL (4.2-5.4) Hemoglobin 8.4 g/dL (12.0-16.0) Hematocrit 26.6 % (37-47) Mean Corpuscular Volume 87.8 fL (80-100) Mean Corpuscular Hemoglobin 27.7 pg (25-34) Mean Corpuscular Hemoglobin Concent 31.6 g/dl (32-36) Platelet Count 130 K/uL (130-400) Mean Platelet Volume 9.3 fL (7.4-10.4) Neutrophils (%) (Auto) 83.2 % Lymphocytes (%) (Auto) 7.7 % Monocytes (%) (Auto) 5.3 % Eosinophils (%) (Auto) 0.5 % Basophils (%) (Auto) 0.0 % Neutrophils # (Auto) 1.74 K/uL (1.4-6.5) Lymphocytes # (Auto) 0.16 K/uL (1.2-3.4) Monocytes # (Auto) 0.11 K/uL (0.11-0.59) Eosinophils # (Auto) 0.01 K/uL (0-0.5) Basophils # (Auto) 0.00 K/uL (0-0.2) RDW Standard Deviation 59.7 fL (36.4-46.3) RDW Coefficient of Variation 21.0 % (11.5-14.5) Immature Granulocyte % (Auto) 3.3 % Immature Granulocyte # (Auto) 0.07 K/uL (0.00-0.02) Toxic Granulation 1+ Toxic Vacuolation 1+ Dohle Bodies 1+ Anisocytosis PRESENT Prothrombin Time 11.1 SECONDS (9.0-12.0) Prothromb Time International Ratio 1.1 (0.9-1.1) Activated Partial Thromboplast Time 36.2 SECONDS (21.0-31.0) Partial Thromboplastin Ratio 1.4 Anion Gap 10.0 mmol/L (3-11) Est Creatinine Clear Calc Drug Dose 36.0 ml/min Estimated GFR () 39.6 Estimated GFR (Non- 34.1 BUN/Creatinine Ratio 17.9 (10-20) Lactic Acid Level 3.8 mmol/L (0.4-2.0) Calcium Level 7.3 mg/dl (8.5-10.1) Magnesium Level 2.0 mg/dl (1.8-2.4) Total Bilirubin 1.3 mg/dl (0.2-1) Aspartate Amino Transf (AST/SGOT) 16 U/L (15-37) Alanine Aminotransferase (ALT/SGPT) 14 U/L (12-78) Alkaline Phosphatase 139 U/L (45-117) Total Creatine Kinase 14 U/L (26-192) Troponin I < 0.015 ng/ml (0-0.045) Total Protein 5.5 gm/dl (6.4-8.2) Albumin 2.0 gm/dl (3.4-5.0) Globulin 3.5 gm/dl (2.5-4.0) Albumin/Globulin Ratio 0.6 (0.9-2) Thyroid Stimulating Hormone (TSH) 9.480 uIu/ml (0.300-4.500) Free Thyroxine 1.17 ng/dl (0.80-1.60) Laboratory results reviewed by me. Medications Administered Medications (Trade) Dose Ordered Sig/Alek Route Start Time Stop Time Status Last Admin Dose Admin Ondansetron HCl (Zofran Inj) 4 mg NOW STAT IV 01/29/17 09:57 01/29/17 09:59 DC 01/29/17 11:40 4 MG Sodium Chloride 2,000 ml @ 999 mls/hr Q2H1M STAT IV 01/29/17 09:57 01/29/17 11:57 DC 01/29/17 11:39 999 MLS/HR Potassium Chloride 10 meq/ Prmx 100 ml @ 100 mls/hr 1200 IV 01/29/17 12:00 01/29/17 12:59 01/29/17 11:54 100 MLS/HR ECG Indication: weakness Rate (beats per minute): 100 Rhythm: normal sinus Findings: no acute ischemic change, no ectopy, other (LVH) ED Course 0953: The patient was evaluated in room A4B. A complete history and physical exam was performed. 0957: Ordered Sodium Chloride 2000 ml @ 999 mls/hr IV, Zofran Inj 4 mg IV. 1125: Ordered Potassium Chloride 10 meq IV. 1127: I discussed the patients case with Reynaldo Waddell PA-C. She is going to evaluate the patient for further treatment. 1148: I reevaluated the patient and she is resting comfortably. I discussed the test results with her and I discussed the treatment plan. She verbalized complete understanding and agreement. She will be evaluated for further treatment. 1200: Ordered Potassium Chloride 10 meq/Prmx 100 ml @ 100 mls/hr IV. Medical Decision The patient is a 61 year old female who presents to the ED with complaints of weakness . Differential diagnoses considered include Dehydration, renal failure , electrolyte imbalance, UTI, pneumonia, neutropenia, viral illness. There is a low white count, this has been documented in the past, the patient is not truly neutropenic. Hemoglobin is low-she has had a dropping hemoglobin over the last several lab draws, hemoglobin is lower today than when last tested. Renal panel testing shows evidence for acute renal failure with a rise to the creatinine. Potassium was low. There were a few subtle liver enzyme elevations. Urinalysis result is pending. There is no coagulopathy. Chest x- ray does not show pneumonia or CHF. EKG shows a sinus rhythm, no acute ischemia. Cardiac enzyme testing 1 is not consistent with acute cardiac injury. Lactic acid level is elevated consistent likely with dehydration. The patient received IV saline, IV potassium and IV Zofran. She is resting fairly comfortably. The patient presents with weakness, chills, vomiting and diarrhea. She has findings consistent with dehydration, hypokalemia and acute renal failure. I think a hospital stay is warranted. I spoke to the patient and case management. The on-call hospitalist was consulted. Medication Reconcilliation Current Medication List: was personally reviewed by me Blood Pressure Screening Patient's blood pressure: Normal blood pressure Blood pressure disposition: Did not require urgent referral Consults Time Called: 1126 Consulting Physician: Reynaldo Waddell PA-C Returned Call: 1127 I discussed the patients case with Reynaldo Waddell PA-C. She is going to evaluate the patient for further treatment. Impression Primary Impression: Acute renal failure Additional Impressions: Nausea vomiting and diarrhea Hypokalemia Anemia Scribe Attestation The scribe's documentation has been prepared under my direction and personally reviewed by me in its entirety. I confirm that the note above accurately reflects all work, treatment, procedures, and medical decision making performed by me. Departure Information Dispostion Being Evaluated By Hospitalist Referrals Pablo Holland D.O. (PCP) Problem Qualifiers
[2017-01-29] MEDS ORDERED: TYLOTC500 PO (10:23)
--- NOTE | 2017-01-29 10:41 | DIAGNOSTIC IMAGING REPORT ---
CHEST ONE VIEW PORTABLE CLINICAL HISTORY: EVALUATE ALTERED MENTAL STATUS/WEAKNESS dyspnea COMPARISON STUDY: N 05/05/2016 FINDINGS: Central catheter in superior vena cava. Lungs are clear. Diaphragms smooth. IMPRESSION: No acute process. The above report was generated using voice recognition software. It may contain grammatical, syntax or spelling errors. Electronically signed by: Mark Fonseca M.D. 01/29/2017 10:40 AM Dictated Date/Time: 01/29/2017 10:39 AM
[2017-01-29 10:50] LABS: HEMATOCRIT 26.6 % (37-47); HEMOGLOBIN 8.4 g/dL (12.0-16.0); MEAN CELL VOLUME 87.8 fL (80-100); MEAN CORPUSCULAR HEMOGLOBIN 27.7 pg (25-34); MEAN CORPUSCULAR HGB CONC 31.6 g/dl (32-36); MEAN PLATELET VOLUME 9.3 fL (7.4-10.4); PLATELET COUNT 130 K/uL (130-400); RED CELL DISTRIBUTION WIDTH SD 59.7 fL (36.4-46.3); WHITE BLOOD COUNT 2.09 K/uL (4.8-10.8)
[2017-01-29 10:59] LABS: INR 1.1 (0.9-1.1); PTT PATIENT 36.2 SECONDS (21.0-31.0)
[2017-01-29 11:11] LABS: ALT/SGPT 14 U/L (12-78); AST/SGOT 16 U/L (15-37); BLOOD UREA NITROGEN 29 mg/dl (7-18); CALCIUM 7.3 mg/dl (8.5-10.1); CARBON DIOXIDE 23 mmol/L (21-32); CREATININE 1.63 mg/dl (0.60-1.20); GLUCOSE 167 mg/dl (70-99); POTASSIUM 2.9 mmol/L (3.5-5.1); SODIUM 137 mmol/L (136-145)
[2017-01-29 11:20] LABS: ALKALINE PHOSPHATASE 139 U/L (45-117); TOTAL PROTEIN 5.5 gm/dl (6.4-8.2)
[2017-01-29] MEDS ORDERED: POTASSIUM CHLORIDE 10 MEQ / 100ML WTR IV STA (11:25)
[2017-01-29 11:41] LABS: EOS % 0.5 %; EOS ABS # 0.01 K/uL (0-0.5); IG# 0.07 K/uL (0.00-0.02); LYMPH % 7.7 %; LYMPH ABS # 0.16 K/uL (1.2-3.4); MONO % 5.3 %; MONO ABS # 0.11 K/uL (0.11-0.59); NEUT % 83.2 %; NEUT ABS # 1.74 K/uL (1.4-6.5)
[2017-01-29] MEDS ORDERED: POTASSIUM CHLR 10MEQ / WTR IV SCH (12:00)
[2017-01-29 12:38] VITALS: O2SAT 99; Ht 152.4 cm; Wt 83.0 kg
[2017-01-29] MEDS ORDERED: POTASSIUM CHLORIDE 10 MEQ TABCR PO STA (12:53)
[2017-01-29] MEDS ORDERED: TRAM-10 PO (13:02)
[2017-01-29] MEDS ORDERED: PROC1TAB5 PO (13:02)
[2017-01-29] MEDS ORDERED: DXM/4 PO (13:02)
[2017-01-29] MEDS ORDERED: ONDA8TAB12 PO (13:02)
[2017-01-29] MEDS ORDERED: MELO15TA10 PO (13:02)
[2017-01-29 13:15] VITALS: BP 117/77; PULSE 108; TEMP 37.7; O2SAT 95
[2017-01-29] MEDS ORDERED: ENOXAPARIN 30 MG/0.3 ML SYR SC SCH (14:00)
[2017-01-29] MEDS ORDERED: NSS + 20MEQ KCL 1000ML 1,000 ML IV SCH (14:00)
[2017-01-29] MEDS: LORAZEPAM 0.5 MG TAB PO PRN (14:21)
[2017-01-29] MEDS: GABAPENTIN 300 MG CAP PO SCH ×2 (14:21→20:58)
--- NOTE | 2017-01-29 14:59 | History and Physical ---
History & Physical Date & Time of Service: Jan 29, 2017 at 13:06 Chief Complaint: Generalized Weakness/Dehydration Primary Care Physician: Pablo Holland D.O. History of Present Illness Source: patient, clinic records, hospital records Pt is 61 y/o F with PMH uterine CA, HTN, hypothyroidism, depression, Factor V mutation, presented to ER with c/o weakness. Pt reports weakness, nausea, intermittent vomiting and diarrhea since starting chemo for uterine CA on 12/31/16. She was hospitalized 01/08 for weakness, N/V, electrolyte abnormality. Pt states has continued with weakness and nausea. Taking Zofran 8mg 3-4 times a day. Used compazine prior to chemo treatment. She states vomited once over the past week. Reports 2-3 loose BM's daily, this is intermittent also. Reports decreased appetite and hasn't been eating. Drinking approx 3 cups a water a day , however reports past 2 days not drinking well either. States generalized weakness and sits in chair all day. Reports feels too weak to walk around her house and states walking around makes her dizzy. She reports generalized myalgias and chills past week. Denies fever. Denies diaphoresis, melena, hematochezia, hematemesis, HU,syncope, vision changes, neck pain, CP, SOB, orthopnea, palpitations, cough, sore throat, choking, otalgia, rhinorrhea, abdominal pain, paresthesias, extremity edema, rashes, urinary symptoms. In the ER today pt appeared to be dehydrated. WBC: 2.09 (3 baseline), Hgb: 8.4 ( baseline 9.1), K: 2.9. BUN: 29 (20 on 01/08), CR: 1.63 (0.83 on 01/08), CA: 7.3. Pt given 2L NSS, 20meq K IV, zofran 4mg IV. CXR: neg. EKG: sinus tachy 100 , QT: 492. Past Medical/Surgical History Medical Problems: (1) B12 deficiency Status: Chronic (2) Benign hypertension Status: Chronic (3) Depression Status: Chronic (4) Diabetes mellitus type 2 Status: Chronic (5) Dyslipidemia Status: Chronic (6) Factor V Leiden mutation Status: Chronic (7) Hypothyroidism Status: Chronic (8) Localized, primary osteoarthritis of the lower leg Status: Chronic (9) Nonulcer dyspepsia Status: Chronic (10) Recurrent falls Status: Resolved (11) Total replacement of hip Status: Resolved (12) Urinary tract infection Status: Resolved Surgical Problems: (1) History of bilateral knee arthroplasty Status: Resolved (2) Hx of cholecystectomy Status: Resolved (3) Hx of gastric bypass Permanent Comment: 07/06/06 [place] [place] [facility] [place] V[place] Status: Resolved Family History Diabetes mellitus SISTER FH: CAD (coronary artery disease) MOTHER ([place]) FH: cancer MOTHER (endometrial CA) SISTER (endometrial CA or ovarian CA) Social History Smoking Status: Never Smoker Smokeless Tobacco Use: No Alcohol Use: none Drug Use: none Marital Status: Housing status: lives with family Occupational Status: disabled Immunizations History of Influenza Vaccine: No Influenza Vaccine Date: Mar 07, 2010 History of Tetanus Vaccine?: UTD History of Pneumococcal: Yes Pneumococcal Date: Jun 06, 2006 History of Hepatitis B Vaccine: No Multi-Drug Resistant Organisms History of MDRO: No Allergies Coded Allergies: No Known Allergies (Verified , 01/29/17) Home Medications Scheduled Alendronate Sodium (Fosamax), 70 MG PO WK Atorvastatin (Lipitor), 40 MG PO HS Cholecalciferol (Vitamin D 1000 Unit), 4,000 INTER.UNIT PO DAILY Dexamethasone (Decadron), 5 TAB PO UD Gabapentin (Neurontin), 300 MG PO TID Hydrochlorothiazide (Hctz), 12.5 MG PO DAILY Levothyroxine Sodium (Synthroid), 100 MCG PO DAILY Meloxicam (Mobic), 15 MG PO DAILY Metoprolol Succ (Toprol Xl) (Toprol-Xl), 50 MG PO QAM Ondansetron Hcl (Zofran), 8 MG PO Q8 Oxybutynin Chloride (Oxybutynin Chloride Er), 10 MG PO QAM Pantoprazole (Protonix), 40 MG PO QAM Prochlorperazine Maleate (Compazine), 1 TAB PO Q6 Sertraline (Zoloft), 200 MG PO HS Trazodone Hcl (Trazodone), 100 MG PO HS Scheduled PRN Acetaminophen (Tylenol), 1,000 MG PO Q6 PRN for Pain or Fever Lorazepam (Ativan), 0.5 MG PO BID PRN for Anxiety Tramadol (Ultram), 50 MG PO Q6H PRN for Pain Review of Systems Constitutional: + weakness (see HPI), + problem reported, No weight loss Eyes: No eye pain, No redness, No discharge, No diplopia ENT: No unusual epistaxis, No nasal symptoms, No trouble swallowing Respiratory: No cough, No sputum, No wheezing, No shortness of breath, No dyspnea on exertion, No dyspnea at rest, No hemoptysis Cardiovascular: No chest pain, No orthopnea, No PND Abdomen: + problem reported (see HPI) Musculoskeletal: + joint pain (pt reports chronic back and leg pain), No muscle pain, No swelling, No calf pain Genitourinary - Female: No dysuria, No urinary frequency, No urinary urgency, No urinary incontinence, No urinary retention, No hematuria Neurologic: No memory loss, No numbness/tingling Integumentary: No rash, No itch Physical Exam Vital Signs Date Time Temp Pulse Resp B/P (MAP) Pulse Ox O2 Delivery O2 Flow Rate FiO2 01/29/17 13:03 99 16 99/63 99 01/29/17 12:36 99 15 97 01/29/17 12:31 100/58 01/29/17 12:06 100 21 99 01/29/17 12:01 106/68 01/29/17 11:38 113/75 01/29/17 11:32 99 22 99 01/29/17 11:13 123/74 01/29/17 11:11 99 18 96/71 99 Room Air 97 123/74 01/29/17 11:11 96/71 01/29/17 11:02 100 15 98 01/29/17 10:32 98 28 97 01/29/17 10:02 96 13 98 01/29/17 09:52 97 Room Air 01/29/17 09:46 97 01/29/17 09:43 37.4 96 19 106/85 97 Room Air 01/29/17 09:41 106/85 General Appearance: no apparent distress, + pertinent finding (chronically ill appearing) Head: normocephalic, atraumatic Eyes: normal inspection, PERRL, EOMI, sclerae normal ENT: hearing grossly normal, pharynx normal, + pertinent finding (dry mucous membranes) Neck: supple, no JVD, trachea midline Respiratory/Chest: chest non-tender, lungs clear, normal breath sounds, no respiratory distress, no accessory muscle use Cardiovascular: no murmur, normal peripheral pulses, + tachycardia (100) Abdomen/GI: normal bowel sounds, non tender, soft Back: no CVA tenderness Extremities/Musculoskelatal: normal capillary refill, no pedal edema Neurologic/Psych: alert, normal mood/affect, oriented x 3 Skin: normal color, warm/dry Diagnostics Laboratory Results Last 24 Hours Test 01/29/17 10:35 White Blood Count 2.09 K/uL Red Blood Count 3.03 M/uL Hemoglobin 8.4 g/dL Hematocrit 26.6 % Mean Corpuscular Volume 87.8 fL Mean Corpuscular Hemoglobin 27.7 pg Mean Corpuscular Hemoglobin Concent 31.6 g/dl Platelet Count 130 K/uL Mean Platelet Volume 9.3 fL Neutrophils (%) (Auto) 83.2 % Lymphocytes (%) (Auto) 7.7 % Monocytes (%) (Auto) 5.3 % Eosinophils (%) (Auto) 0.5 % Basophils (%) (Auto) 0.0 % Neutrophils # (Auto) 1.74 K/uL Lymphocytes # (Auto) 0.16 K/uL Monocytes # (Auto) 0.11 K/uL Eosinophils # (Auto) 0.01 K/uL Basophils # (Auto) 0.00 K/uL RDW Standard Deviation 59.7 fL RDW Coefficient of Variation 21.0 % Immature Granulocyte % (Auto) 3.3 % Immature Granulocyte # (Auto) 0.07 K/uL Toxic Granulation 1+ Toxic Vacuolation 1+ Dohle Bodies 1+ Anisocytosis PRESENT Prothrombin Time 11.1 SECONDS Prothromb Time International Ratio 1.1 Activated Partial Thromboplast Time 36.2 SECONDS Partial Thromboplastin Ratio 1.4 Sodium Level 137 mmol/L Potassium Level 2.9 mmol/L Chloride Level 104 mmol/L Carbon Dioxide Level 23 mmol/L Anion Gap 10.0 mmol/L Blood Urea Nitrogen 29 mg/dl Creatinine 1.63 mg/dl Est Creatinine Clear Calc Drug Dose 36.0 ml/min Estimated GFR () 39.6 Estimated GFR (Non- 34.1 BUN/Creatinine Ratio 17.9 Random Glucose 167 mg/dl Lactic Acid Level 3.8 mmol/L Calcium Level 7.3 mg/dl Magnesium Level 2.0 mg/dl Total Bilirubin 1.3 mg/dl Aspartate Amino Transf (AST/SGOT) 16 U/L Alanine Aminotransferase (ALT/SGPT) 14 U/L Alkaline Phosphatase 139 U/L Total Creatine Kinase 14 U/L Troponin I < 0.015 ng/ml Total Protein 5.5 gm/dl Albumin 2.0 gm/dl Globulin 3.5 gm/dl Albumin/Globulin Ratio 0.6 Thyroid Stimulating Hormone (TSH) 9.480 uIu/ml Free Thyroxine 1.17 ng/dl Diagnostic Radiology CXR: IMPRESSION: No acute process. EKG EKG: sinus, rate 100, prolonged QT 492 Read by cardiology: Normal sinus rhythm Left axis deviation Minimal voltage criteria for LVH, may be normal variant Prolonged QT Abnormal ECG When compared with ECG of 11-MAY-2013 20:16, T wave inversion no longer evident in Inferior leads Nonspecific T wave abnormality, improved in Anterolateral leads Confirmed by CRISTOPHER ELY ([id number]) on 01/29/2017 1:47:49 PM Impression Assessment and Plan VAUGHN BUN: 29 (baseline 20). CR: 1.63 (baseline 0.83). GFR: 34 (baseline 79.5). Pending U/A. Pt clinically dehydrated. Pt given 2L bolus NSS in ER. -continue IVF -continue to monitor -repeat prp in am -avoid nephrotoxic agents when able HYPOKALEMIA K: 2.9. Pt with poor po intake. Given 20meq IV in ER. -K 40meq po -NSS +20 KCl @ 100ml/hr -repeat prp LACTIC ACIDOSIS lactic acid: 3.8. Pt afebrile, negative CXR. Pending UA. No increased diarrhea or vomiting. Suspect from dehydration at this time -trend lactic acid -IVF -repeat CBC ANEMIA Hgb: 8.4 (was 9) suspect from chemo. No active bleeding. -continue to monitor WEAKNESS/DEHYDRATION Pt reports weakness, nausea, poor po intake since first chemo in 12/2016. -IVF -continue to monitor -hold HCTZ -May consider PT/OT when able NAUSEA vomited once past week. -hold zofran with prolonged QT -clear liquid diet, advance as tolerated -compazine prn UTERINE CA Pt follows with Dr García. First chemo 12/2016 -hem/onc consult DEPRESSION/ANXIETY -continue SSRI -continue Ativan prn anxiety -continue trazodone HS prn insomnia HYPERLIPIDEMIA -hold statin at this time HTN BP 96/71-113/75 at this time. Continue to monitor -hold metoprolol -hold HCTZ HYPOTHYROIDISM TSH: 9.4 -consider repeat TSH in couple of days to recheck -continue levothyroxine GERD -PPI CHRONIC BACK PAIN -continue gabapentin -continue tramadol prn pain DVT PROPHYLAXIS -lovenox SQ DISPOSITION -admit tele -Full Code as per discussion with pt -Follows with Dr Holland for routine care Pt was seen with Dr Escalante. See addendum ADDENDUM: This is a 61 year old female with a PMH of uterine CA with last chemo done in December 2016, presents with dehydration, nausea/vomiting, weakness. She is complaining of nausea, loose stools, decreased appetite. Found to have acute kidney injury. Will give IVFs replace electrolytes. lactic acidosis likely secondary to dehydration - repeat lactic acid in four hours PT/OT Level of Care Telemetry Resuscitation Status FULL RESUSCITATION VTE Prophylaxis VTE Risk Assessment Done? Y/N: Yes Risk Level: High Given or contraindicated: Enoxaparin (Lovenox)SQ Additional Copies To Pablo Holland D.O.
[2017-01-29 16:12] VITALS: BP 119/64; PULSE 84; TEMP 36.9; O2SAT 96
[2017-01-29 19:39] VITALS: BP 107/65; PULSE 74; TEMP 36.5; O2SAT 96
[2017-01-29] MEDS: SERTRALINE HCL 100 MG TAB PO SCH (20:58)
[2017-01-29] MEDS: TRAZODONE HCL 100 MG TAB PO SCH (20:58)
[2017-01-29] MEDS ORDERED: CEFTRIAXONE SOD INJ 1 GM in DEXTROSE 5% ADD-VANTAGE 50ML 50 ML IV SCH (21:00)
[2017-01-29 23:35] VITALS: BP 74/54; PULSE 120; TEMP 37.7; O2SAT 95
[2017-01-29] MEDS: TRAMADOL HCL 50 MG TAB PO PRN (23:37)
[2017-01-30] VITALS (101 sets, daily range): BP systolic 72–136; BP diastolic 48–88; PULSE 109–137; TEMP 36.4–37.3; O2SAT 90–100
[2017-01-30] MEDS ORDERED: NSS + 20MEQ KCL 1000ML 1,000 ML IV ONE ×2 (00:15→02:45)
--- NOTE | 2017-01-30 00:19 | Progress Note ---
Internal Med Progress Note Date of Service: Jan 30, 2017. Provider Documentation: SUBJECTIVE: Made aware by RN after midnight of SBP 70s , tachycardia Fever spikes despite IV Ceftriaxone administration for possible UTI. Patient denies chest pain, shortness of breath, cough symptoms, abdominal pain, dysuria. Loose stools at home OBJECTIVE: Vital Signs-as noted below Exam: General-obese , anxious HEENT - alopecia, pale palp conjunctivae, no ptosis, dry buccal mucosa Neck-supple, short Lungs-CTA Heart-tachycardic Abdomen-soft, some distention Extremities-min LE edema, no tenderness NE coherent, no gross focality lactic acid 3 (01/29, 2340) Initial blood cultures GNR 2 bottles ASSESSMENT & PLAN: Possible septic shock Gram-negative dash bacteremia Immunocompromised patient (hx endometrial cancer, ongoing chemotherapy) other possible sources : Diarrhea rule out C. difficile Vascular device (Aport) ff final blood CS, stool C. difficile IVF, follow lactic acid IV Cefepime in place of IV Ceftriaxone for now for broader gram-negative coverage IV Flagyl for now for presumptive C. difficile in light of sepsis criteria, DC Flagyl if stool C. difficile negative IV Vancomycin for gram-positive coverage in consideration of vascular device Patient may require ICU transfer to facilitate pressor therapy if BP/subsequent lactic acid unimproved with above intervention. ADDENDUM : 01/30, 5 AM SBP 70s, repeat lactate 3.5 ICU transfer to facilitate Levophed drip. Case discussed with allergist/immunologist on-call, Dr. Oleary. Patient's updated of developments over the phone. Vital Signs: Date Time Temp Pulse Resp B/P (MAP) Pulse Ox O2 Delivery O2 Flow Rate FiO2 01/30/17 05:20 122 77/51 (60) 01/30/17 04:08 118 96/64 (75) 01/30/17 04:00 Room Air 01/30/17 03:40 37.2 115 20 83/53 (63) 90 Room Air 01/30/17 02:55 37.3 01/30/17 02:51 120 72/48 (56) 01/30/17 02:15 109 85/55 (65) 01/30/17 01:06 121 84/56 (65) 01/29/17 23:59 Room Air 01/29/17 23:35 37.7 120 20 74/54 (61) 95 Room Air 01/29/17 20:00 Room Air 01/29/17 19:39 36.5 74 18 107/65 (79) 96 01/29/17 16:12 36.9 84 18 119/64 (82) 96 01/29/17 16:00 Room Air 01/29/17 13:15 37.7 108 18 117/77 (90) 95 Room Air 01/29/17 13:03 99 16 99/63 99 01/29/17 12:38 99 Room Air 01/29/17 12:36 99 15 97 01/29/17 12:31 100/58 01/29/17 12:06 100 21 99 01/29/17 12:01 106/68 01/29/17 11:38 113/75 01/29/17 11:32 99 22 99 01/29/17 11:13 123/74 01/29/17 11:11 99 18 96/71 99 Room Air 97 123/74 01/29/17 11:11 96/71 01/29/17 11:02 100 15 98 01/29/17 10:32 98 28 97 01/29/17 10:02 96 13 98 01/29/17 09:52 97 Room Air 01/29/17 09:46 97 01/29/17 09:43 37.4 96 19 106/85 97 Room Air 01/29/17 09:41 106/85 Lab Results: Results Past 24 Hours Test 01/29/17 10:35 01/29/17 16:03 01/29/17 18:19 01/29/17 19:59 Range/Units White Blood Count 2.09 4.8-10.8 K/uL Red Blood Count 3.03 4.2-5.4 M/uL Hemoglobin 8.4 12.0-16.0 g/dL Hematocrit 26.6 37-47 % Mean Corpuscular Volume 87.8 80-100 fL Mean Corpuscular Hemoglobin 27.7 25-34 pg Mean Corpuscular Hemoglobin Concent 31.6 32-36 g/dl Platelet Count 130 130-400 K/uL Mean Platelet Volume 9.3 7.4-10.4 fL Neutrophils (%) (Auto) 83.2 % Lymphocytes (%) (Auto) 7.7 % Monocytes (%) (Auto) 5.3 % Eosinophils (%) (Auto) 0.5 % Basophils (%) (Auto) 0.0 % Neutrophils # (Auto) 1.74 1.4-6.5 K/uL Lymphocytes # (Auto) 0.16 1.2-3.4 K/uL Monocytes # (Auto) 0.11 0.11-0.59 K/uL Eosinophils # (Auto) 0.01 0-0.5 K/uL Basophils # (Auto) 0.00 0-0.2 K/uL RDW Standard Deviation 59.7 36.4-46.3 fL RDW Coefficient of Variation 21.0 11.5-14.5 % Immature Granulocyte % (Auto) 3.3 % Immature Granulocyte # (Auto) 0.07 0.00-0.02 K/uL Toxic Granulation 1+ Toxic Vacuolation 1+ Dohle Bodies 1+ Anisocytosis PRESENT Prothrombin Time 11.1 9.0-12.0 SECONDS Prothromb Time International Ratio 1.1 0.9-1.1 Activated Partial Thromboplast Time 36.2 21.0-31.0 SECONDS Partial Thromboplastin Ratio 1.4 Sodium Level 137 136-145 mmol/L Potassium Level 2.9 3.5-5.1 mmol/L Chloride Level 104 98-107 mmol/L Carbon Dioxide Level 23 21-32 mmol/L Anion Gap 10.0 3-11 mmol/L Blood Urea Nitrogen 29 7-18 mg/dl Creatinine 1.63 0.60-1.20 mg/dl Est Creatinine Clear Calc Drug Dose 36.0 ml/min Estimated GFR () 39.6 Estimated GFR (Non- 34.1 BUN/Creatinine Ratio 17.9 10-20 Random Glucose 167 70-99 mg/dl Lactic Acid Level 3.8 4.7 3.7 0.4-2.0 mmol/L Calcium Level 7.3 8.5-10.1 mg/dl Magnesium Level 2.0 1.8-2.4 mg/dl Total Bilirubin 1.3 0.2-1 mg/dl Aspartate Amino Transf (AST/SGOT) 16 15-37 U/L Alanine Aminotransferase (ALT/SGPT) 14 12-78 U/L Alkaline Phosphatase 139 45-117 U/L Total Creatine Kinase 14 26-192 U/L Troponin I < 0.015 0-0.045 ng/ml Total Protein 5.5 6.4-8.2 gm/dl Albumin 2.0 3.4-5.0 gm/dl Globulin 3.5 2.5-4.0 gm/dl Albumin/Globulin Ratio 0.6 0.9-2 Thyroid Stimulating Hormone (TSH) 9.480 0.300-4.500 uIu/ml Free Thyroxine 1.17 0.80-1.60 ng/dl Urine Color DK YELLOW Urine Appearance TURBID CLEAR Urine pH 5.0 4.5-7.5 Urine Specific [place] 1.028 1.000-1.030 Urine Protein 2+ NEG Urine Glucose (UA) NEG NEG Urine Ketones NEG NEG Urine Occult Blood 3+ NEG Urine Nitrite NEG NEG Urine Bilirubin 1+ NEG Urine Urobilinogen POS NEG Urine Leukocyte Esterase MODERATE NEG Urine WBC (Auto) >30 0-5 /hpf Urine RBC (Auto) 0-4 0-4 /hpf Urine Hyaline Casts (Auto) 0 0-5 /lpf Urine Epithelial Cells (Auto) >30 0-5 /lpf Urine Bacteria (Auto) 4+ NEG Urine Pathogenic Casts 1-5 GRANULAR CASTS 0 /lpf Urine Yeast (Auto) NONE PRSENT Test 01/29/17 23:40 01/30/17 00:25 01/30/17 04:14 Range/Units Lactic Acid Level 3.0 3.5 0.4-2.0 mmol/L Hemoglobin 7.3 6.4 12.0-16.0 g/dL Hematocrit 23.5 20.7 37-47 % Sodium Level 139 139 136-145 mmol/L Potassium Level 3.6 3.8 3.5-5.1 mmol/L Chloride Level 110 114 98-107 mmol/L Carbon Dioxide Level 19 17 21-32 mmol/L Anion Gap 10.0 8.0 3-11 mmol/L Blood Urea Nitrogen 32 32 7-18 mg/dl Creatinine 2.09 2.11 0.60-1.20 mg/dl Est Creatinine Clear Calc Drug Dose 28.0 27.8 ml/min Estimated GFR () 29.3 29.0 Estimated GFR (Non- 25.3 25.0 BUN/Creatinine Ratio 15.2 15.3 10-20 Random Glucose 114 116 70-99 mg/dl Calcium Level 6.6 6.0 8.5-10.1 mg/dl Magnesium Level 1.6 1.9 1.8-2.4 mg/dl White Blood Count 1.65 4.8-10.8 K/uL Red Blood Count 2.33 4.2-5.4 M/uL Mean Corpuscular Volume 88.8 80-100 fL Mean Corpuscular Hemoglobin 27.5 25-34 pg Mean Corpuscular Hemoglobin Concent 30.9 32-36 g/dl Platelet Count 81 130-400 K/uL Mean Platelet Volume 9.1 7.4-10.4 fL RDW Standard Deviation 56.5 36.4-46.3 fL RDW Coefficient of Variation 21.8 11.5-14.5 % Neutrophils % (Manual) 77.9 % Lymphocytes % (Manual) 15.9 % Monocytes % (Manual) 4.4 % Eosinophils % (Manual) 0.9 % Basophils % (Manual) 0.9 % Neutrophils # (Manual) 1.29 1.4-6.5 K/uL Total Absolute Neutrophils 1.29 1.4-6.5 K/uL Lymphocytes # (Manual) 0.26 1.2-3.4 K/uL Total Absolute Lymphocytes 0.26 1.2-3.4 K/uL Monocytes # (Manual) 0.07 0.11-0.59 K/uL Eosinophils # (Manual) 0.01 0-0.5 K/uL Basophils # (Manual) 0.01 0-0.2 K/uL Toxic Granulation 2+ Toxic Vacuolation 3+ Dohle Bodies 3+ Platelet Estimate DECREASED Large Platelets 1+ Anisocytosis PRESENT Echinocytes 1+ Procalcitonin 19.72 0-0.5 ng/ml Microbiology Results 01/29/17 Blood Culture - Preliminary, Resulted Gram Negative Bacilli 01/29/17 Blood Culture - Preliminary, Resulted Gram Negative Bacilli 01/30/17 MRSA DNA Surveillance Screen, Received Pending 01/30/17 C.difficile Toxin B Gene (PCR), Denny Batch Pending 01/29/17 Urine Culture, Received Pending
[2017-01-30] MEDS ORDERED: ACETAMINOPHEN 325 MG TAB PO ONE (00:23)
[2017-01-30] MEDS: METRONIDAZOLE / NSS 500 MG in PREMIXED NSS 100 ML IV SCH ×3 (00:43→17:12)
[2017-01-30 01:01] LABS: HEMATOCRIT 23.5 % (37-47); HEMOGLOBIN 7.3 g/dL (12.0-16.0)
[2017-01-30 01:33] LABS: CALCIUM 6.6 mg/dl (8.5-10.1); CREATININE 2.09 mg/dl (0.60-1.20); POTASSIUM 3.6 mmol/L (3.5-5.1)
[2017-01-30] MEDS ORDERED: CEFEPIME IV 2,000 MG in SYRINGE 7.5 ML IV STA (01:42)
[2017-01-30] MEDS ORDERED: CEFEPIME IV 2,000 MG in DEXTROSE 5% 100ML 100 ML IV ONE (01:45)
[2017-01-30] MEDS ORDERED: MAGNESIUM SULFATE 1GM / D5W 1 GM in PREMIXED IN D5W 100 ML IV ONE (01:45)
[2017-01-30] MEDS ORDERED: NSS + 20MEQ KCL 1000ML 1,000 ML IV SCH ×3 (02:00→04:45)
[2017-01-30] MEDS ORDERED: SODIUM CHLORIDE 0.9% 1000ML 1,000 ML IV STA ×2 (02:58→05:21)
[2017-01-30] MEDS ORDERED: VANCOMYCIN INJ 0 MG in SODIUM CHLORIDE 0.9% 250ML 250 ML IV STA (03:12)
[2017-01-30] MEDS ORDERED: SODIUM CHLORIDE 0.9% 1000ML 1,000 ML IV ONE (03:30)
[2017-01-30] MEDS ORDERED: VANCOMYCIN INJ 1,500 MG in SODIUM CHLORIDE 0.9% 500ML 500 ML IV SCH (03:45)
[2017-01-30] MEDS ORDERED: VANCOMYCIN CONSULT ACTIVE PRN (04:15)
[2017-01-30 04:57] LABS: CREATININE 2.11 mg/dl (0.60-1.20); POTASSIUM 3.8 mmol/L (3.5-5.1)
[2017-01-30 05:11] LABS: HEMATOCRIT 20.7 % (37-47); HEMOGLOBIN 6.4 g/dL (12.0-16.0); MEAN CELL VOLUME 88.8 fL (80-100); MEAN CORPUSCULAR HEMOGLOBIN 27.5 pg (25-34); MEAN CORPUSCULAR HGB CONC 30.9 g/dl (32-36); MEAN PLATELET VOLUME 9.1 fL (7.4-10.4); PLATELET COUNT 81 K/uL (130-400); RED CELL DISTRIBUTION WIDTH CV 21.8 % (11.5-14.5); RED CELL DISTRIBUTION WIDTH SD 56.5 fL (36.4-46.3); WHITE BLOOD COUNT 1.65 K/uL (4.8-10.8)
[2017-01-30] MEDS: NOREPINEPHRINE BIT INJ 8 MG in DEXTROSE 5% 500ML 500 ML IV PRN ×2 (05:50→15:07)
[2017-01-30] MEDS: LEVOTHYROXINE 100 MCG TAB PO SCH (05:53)
[2017-01-30] MEDS ORDERED: HEPARIN SOD 5000 UNIT/0.5 ML CARP SQ SCH (06:00)
[2017-01-30] MEDS: NSS + 20MEQ KCL 1000ML 1,000 ML IV SCH ×2 (06:35→08:00)
--- NOTE | 2017-01-30 06:41 | Clinical Documentation Query ---
CLINICAL DOCUMENTATION QUERY 61 year old female who presents to the Emergency Room with complaints of persistent weakness. This patient has decompensated and required transfer to ICU with Pressor support. Query #1/2 In your clinical opinion is this patient being managed for: ( x ) Early Sepsis POA with now Septic Shock requiring IV fluid resuscitation and IV pressor support. ( ) Hypovolemic Shock with unknown cause ( ) Not Agree ( ) Other explanation of clinical findings (Please Explain) ( ) Unable to determine (Please Define) ( ) Need to Discuss The medical record reflects the following clinical findings, treatment, and risk factors. Clinical Indicators: Low grade fever 37.7, tachycardia 120, hypotension 74/54, Leukopenia 1.65, Lactic acidemia, UA with 4+bacteria and moderated leukocyte esterase. Treatment: Transfer to ICU, Multiple IV boluses, IV Norepinephrine, Risk Factors: Age, immunosuppression associated with Chemotherapy, bacteria in urine. Query #2/2 In your clinical opinion is this patient being managed for: ( x) Chemo induced pancytopenia ( ) Not Agree ( ) Other explanation of clinical findings (Please Explain) ( ) Unable to determine (Please Define) ( ) Need to Discuss The medical record reflects the following clinical findings, treatment, and risk factors. Clinical Indicators: WBC's 1.65, Hgb 6.4, Hct 20.7, PLT 81 Treatment: DC of Heparin, Risk Factors: Age, Chemotherapy Please clarify and document your clinical opinion in the progress notes and discharge summary. Terms such as "probable", "suspected", "likely", "questionable", "possible", or "still to be ruled out" are acceptable. IF IN AGREEMENT, YOU MUST DOCUMENT ABOVE DIAGNOSTIC STATEMENT IN DAILY PROGRESS NOTES AND DISCHARGE SUMMARY. This document is not part of the patient's record. Thank You, Derek Lorenz, RN [phone]
--- NOTE | 2017-01-30 06:43 | Clinical Documentation Query ---
CLINICAL DOCUMENTATION QUERY 61 year old female who presents to the Emergency Room with complaints of persistent weakness. This patient has decompensated and required transfer to ICU with Pressor support. Query #1/2 In your clinical opinion is this patient being managed for: ( ) "Early Sepsis POA with now Septic Shock" requiring IV fluid resuscitation and IV pressor support. ( ) Hypovolemic Shock with unknown cause ( ) Not Agree ( ) Other explanation of clinical findings (Please Explain) ( ) Unable to determine (Please Define) ( ) Need to Discuss The medical record reflects the following clinical findings, treatment, and risk factors. Clinical Indicators: Low grade fever 37.7, tachycardia 120, hypotension 74/54, Leukopenia 1.65, Lactic acidemia, UA with 4+bacteria and moderated leukocyte esterase. Treatment: Transfer to ICU, Multiple IV boluses, IV Norepinephrine, Risk Factors: Age, immunosuppression associated with Chemotherapy, bacteria in urine. Query #2/2 In your clinical opinion is this patient being managed for: ( ) Chemo induced pancytopenia ( ) Not Agree ( ) Other explanation of clinical findings (Please Explain) ( ) Unable to determine (Please Define) ( ) Need to Discuss The medical record reflects the following clinical findings, treatment, and risk factors. Clinical Indicators: WBC's 1.65, Hgb 6.4, Hct 20.7, PLT 81 Treatment: DC of Heparin, Risk Factors: Age, Chemotherapy Please clarify and document your clinical opinion in the progress notes and discharge summary. Terms such as "probable", "suspected", "likely", "questionable", "possible", or "still to be ruled out" are acceptable. IF IN AGREEMENT, YOU MUST DOCUMENT ABOVE DIAGNOSTIC STATEMENT IN DAILY PROGRESS NOTES AND DISCHARGE SUMMARY. This document is not part of the patient's record. Thank You, Derek Lorenz, RN [phone]
[2017-01-30] MEDS ORDERED: HEPARIN SOD 5000 UNIT/0.5 ML CARP SC ONE (08:30)
[2017-01-30] MEDS ORDERED: FILGRASTIM 480 MCG/1.6 ML VIAL SQ SCH (09:00)
[2017-01-30] MEDS ORDERED: CEFEPIME CONSULT ACTIVE PRN (09:00)
[2017-01-30] MEDS ORDERED: FILGRASTIM 300 MCG/ML 1 ML VIAL SQ SCH (09:00)
[2017-01-30] MEDS ORDERED: CIPROFLOXACIN / D5W 400 MG in PREMIXED IN D5W 200 ML IV SCH (09:00)
[2017-01-30] MEDS ORDERED: CHOLECALCIFEROL 1000 INTER.UNIT TAB PO SCH (09:00)
[2017-01-30 09:01] LABS: INR 1.1 (0.9-1.1); PTT PATIENT 43.1 SECONDS (21.0-31.0)
[2017-01-30 09:12] LABS: CALCIUM 6.2 mg/dl (8.5-10.1); CREATININE 2.12 mg/dl (0.60-1.20); POTASSIUM 4.1 mmol/L (3.5-5.1)
--- NOTE | 2017-01-30 09:19 | DIAGNOSTIC IMAGING REPORT ---
CT OF THE ABDOMEN AND PELVIS WITHOUT CONTRAST, STONE PROTOCOL CLINICAL HISTORY: Acute pyelonephritis. Possible infected stone. Acute kidney injury. COMPARISON STUDY: CT of the abdomen and pelvis January 08, 2017. TECHNIQUE: Helical axial images of the abdomen and pelvis were obtained without IV or oral contrast according to renal stone protocol. A dose lowering technique was utilized adhering to the principles of ALARA. FINDINGS: Visualized portions of the lower chest demonstrate a trace right pleural effusion with subsegmental bibasilar atelectasis. Evaluation of the abdomen and pelvis is suboptimal on this unenhanced exam. No pneumatosis, free air or portal venous gas is present. The gallbladder is surgically absent. Dilatation of the common bile duct is unchanged from prior studies and likely related to cholecystectomy. Fatty infiltration of the liver is noted. Mild splenomegaly is unchanged. Postoperative findings involving the stomach are noted as well as anterior abdominal wall. There is no evidence for a bowel obstruction. The appendix is normal. No renal, ureteral or bladder calculi are present. There is no hydronephrosis or hydroureter. A Kruse balloon is present within the bladder which is collapsed. There is moderate right and mild left perinephric infiltration. No renal abscess is identified on this unenhanced study. There is no lymphadenopathy. No suspicious skeletal lesions are present. A left femoral internal fixation is noted. IMPRESSION: 1. No urinary calculi or hydronephrosis. 2. Moderate right and mild left perinephric infiltration. While nonspecific, right-sided pyelonephritis could have this appearance. No renal abscess identified on unenhanced CT. 3. Fatty infiltration of the liver. 4. Stable biliary ductal dilatation which is likely related to prior cholecystectomy. 5. No bowel obstruction. Normal appendix. Electronically signed by: Rakesh Gerber M.D. 01/30/2017 9:18 AM Dictated Date/Time: 01/30/2017 9:03 AM
[2017-01-30] MEDS: SODIUM BICARBONATE 8.4% INJ 75 MEQ in SODIUM CHLORIDE 0.45% 1000ML 1,000 ML IV SCH ×2 (09:24→17:12)
[2017-01-30] MEDS: GABAPENTIN 100 MG CAP PO SCH ×3 (09:25→21:17)
[2017-01-30] MEDS: PANTOprazole SOD 40 MG TAB PO SCH (09:25)
--- NOTE | 2017-01-30 09:38 | Progress Note ---
Progress Note Date of Service Jan 30, 2017. Progress Note Internal Medicine Hospitalist Note Subjective/Physical Exam Patient seen and examined in the ICU. Patient s/p cardiac echo and was about to go CT scan, CT scan completed. General: patient is awake and responds to questions appropriately, reports pain of back and lower extremities but that these are chronic pains and not new Lungs: breathing on nasal cannula Heart: Tachycardic to 130s Abdomen: soft, nontender Extremities- no tenderness CT abdomen: 1. No urinary calculi or hydronephrosis. 2. Moderate right and mild left perinephric infiltration. While nonspecific, right-sided pyelonephritis could have this appearance. No renal abscess identified on unenhanced CT. 3. Fatty infiltration of the liver. 4. Stable biliary ductal dilatation which is likely related to prior cholecystectomy. 5. No bowel obstruction. Normal appendix. C difficile pending ASSESSMENT & PLAN: Possible septic shock in Immunocompromised patient (hx endometrial cancer, ongoing chemotherapy) Gram-negative dash bacteremia IV Cefepime in place of IV Ceftriaxone for now for broader gram-negative coverage IV Flagyl for now for presumptive C. difficile in light of sepsis criteria, DC Flagyl if stool C. difficile negative IV Vancomycin for gram-positive coverage in consideration of vascular device ( Aport) Lactic Acidosis from infection vs dehydration Tachycardia likely from infection vs dehydration Monitor blood pressure with IV fluids and pressors as needed to maintain MAP above 60 Hold home dose HCTZ for now Further recommendations and management of sepsis as per ICU physician Anemia Hgb downtrending 8.4 to 7.3 to 6.4 Fecal occult blood stool ordered no retroperitoneal bleed as seen on CT abdomen 2 units of PRBC requested to be transfused Hemoncology for pancytopenia - low Hgb, low WBC, low Platelets - in the context of patient receiving chemotherapy in recent past UTERINE CA Pt follows with Dr García. First chemo 12/2016 Renal - VAUGHN IV hydration and trend GFR Electrolytes - was treated for hypokalemia Monitor and replace electrolytes as needed Nutrition / weakness / GERD Pt reports weakness, nausea, poor po intake since first chemo in 12/2016. NAUSEA antiemetics as needed CHRONIC BACK PAIN pain control may reduce tachycardia however monitor for sedation or drug induced hypotension DEPRESSION/ANXIETY uses SSRI, Ativan prn anxiety, trazodone HS prn insomnia HYPERLIPIDEMIA HYPOTHYROIDISM TSH: 9.4 -consider repeat TSH in couple of days to recheck -continue levothyroxine DVT PROPHYLAXIS
[2017-01-30] MEDS ORDERED: CIPROFLOXACIN CONSULT ACTIVE PRN (09:45)
--- NOTE | 2017-01-30 10:47 | Pharmacy Progress Note ---
Pharmacy Antibiotic Consult Date of Service: Jan 30, 2017. Pharmacy Dosing Scope Pharmacy is consulted to initiate vancomycin IV dosing therapy, order appropriate labs and adjust drug dose/frequency. Subjective The patient is a 61 year old female admitted on Jan 29, 2017 at 12:16. Objective Height (Feet): 5 Height (Inches): 0.00 Weight (Kilograms): 92.800 Lab Results (24hrs): Test 01/29/17 10:35 01/29/17 18:19 01/30/17 00:25 01/30/17 04:14 White Blood Count 2.09 K/uL (4.8-10.8) 1.65 K/uL (4.8-10.8) Red Blood Count 3.03 M/uL (4.2-5.4) 2.33 M/uL (4.2-5.4) Hemoglobin 8.4 g/dL (12.0-16.0) 7.3 g/dL (12.0-16.0) 6.4 g/dL (12.0-16.0) Hematocrit 26.6 % (37-47) 23.5 % (37-47) 20.7 % (37-47) Mean Corpuscular Volume 87.8 fL (80-100) 88.8 fL (80-100) Mean Corpuscular Hemoglobin 27.7 pg (25-34) 27.5 pg (25-34) Mean Corpuscular Hemoglobin Concent 31.6 g/dl (32-36) 30.9 g/dl (32-36) Platelet Count 130 K/uL (130-400) 81 K/uL (130-400) Mean Platelet Volume 9.3 fL (7.4-10.4) 9.1 fL (7.4-10.4) Neutrophils (%) (Auto) 83.2 % Lymphocytes (%) (Auto) 7.7 % Monocytes (%) (Auto) 5.3 % Eosinophils (%) (Auto) 0.5 % Basophils (%) (Auto) 0.0 % Neutrophils # (Auto) 1.74 K/uL (1.4-6.5) Lymphocytes # (Auto) 0.16 K/uL (1.2-3.4) Monocytes # (Auto) 0.11 K/uL (0.11-0.59) Eosinophils # (Auto) 0.01 K/uL (0-0.5) Basophils # (Auto) 0.00 K/uL (0-0.2) RDW Standard Deviation 59.7 fL (36.4-46.3) 56.5 fL (36.4-46.3) RDW Coefficient of Variation 21.0 % (11.5-14.5) 21.8 % (11.5-14.5) Immature Granulocyte % (Auto) 3.3 % Immature Granulocyte # (Auto) 0.07 K/uL (0.00-0.02) Toxic Granulation 1+ 2+ Toxic Vacuolation 1+ 3+ Dohle Bodies 1+ 3+ Anisocytosis PRESENT PRESENT Prothrombin Time 11.1 SECONDS (9.0-12.0) Prothromb Time International Ratio 1.1 (0.9-1.1) Activated Partial Thromboplast Time 36.2 SECONDS (21.0-31.0) Partial Thromboplastin Ratio 1.4 Total Bilirubin 1.3 mg/dl (0.2-1) Aspartate Amino Transf (AST/SGOT) 16 U/L (15-37) Alanine Aminotransferase (ALT/SGPT) 14 U/L (12-78) Alkaline Phosphatase 139 U/L (45-117) Total Creatine Kinase 14 U/L (26-192) Troponin I < 0.015 ng/ml (0-0.045) Total Protein 5.5 gm/dl (6.4-8.2) Albumin 2.0 gm/dl (3.4-5.0) Globulin 3.5 gm/dl (2.5-4.0) Albumin/Globulin Ratio 0.6 (0.9-2) Thyroid Stimulating Hormone (TSH) 9.480 uIu/ml (0.300-4.500) Free Thyroxine 1.17 ng/dl (0.80-1.60) Urine Color DK YELLOW Urine Appearance TURBID (CLEAR) Urine pH 5.0 (4.5-7.5) Urine Specific [place] 1.028 (1.000-1.030) Urine Protein 2+ (NEG) Urine Glucose (UA) NEG (NEG) Urine Ketones NEG (NEG) Urine Occult Blood 3+ (NEG) Urine Nitrite NEG (NEG) Urine Bilirubin 1+ (NEG) Urine Urobilinogen POS (NEG) Urine Leukocyte Esterase MODERATE (NEG) Urine WBC (Auto) >30 /hpf (0-5) Urine RBC (Auto) 0-4 /hpf (0-4) Urine Hyaline Casts (Auto) 0 /lpf (0-5) Urine Epithelial Cells (Auto) >30 /lpf (0-5) Urine Bacteria (Auto) 4+ (NEG) Urine Pathogenic Casts 1-5 GRANULAR CASTS /lpf (0) Urine Yeast (Auto) (NONE PRSENT) Magnesium Level 1.6 mg/dl (1.8-2.4) 1.9 mg/dl (1.8-2.4) Neutrophils % (Manual) 77.9 % Lymphocytes % (Manual) 15.9 % Monocytes % (Manual) 4.4 % Eosinophils % (Manual) 0.9 % Basophils % (Manual) 0.9 % Neutrophils # (Manual) 1.29 K/uL (1.4-6.5) Total Absolute Neutrophils 1.29 K/uL (1.4-6.5) Lymphocytes # (Manual) 0.26 K/uL (1.2-3.4) Total Absolute Lymphocytes 0.26 K/uL (1.2-3.4) Monocytes # (Manual) 0.07 K/uL (0.11-0.59) Eosinophils # (Manual) 0.01 K/uL (0-0.5) Basophils # (Manual) 0.01 K/uL (0-0.2) Platelet Estimate DECREASED Large Platelets 1+ Echinocytes 1+ Sodium Level 139 mmol/L (136-145) Potassium Level 3.8 mmol/L (3.5-5.1) Chloride Level 114 mmol/L (98-107) Carbon Dioxide Level 17 mmol/L (21-32) Anion Gap 8.0 mmol/L (3-11) Blood Urea Nitrogen 32 mg/dl (7-18) Creatinine 2.11 mg/dl (0.60-1.20) Est Creatinine Clear Calc Drug Dose 27.8 ml/min Estimated GFR () 29.0 Estimated GFR (Non- 25.0 BUN/Creatinine Ratio 15.3 (10-20) Random Glucose 116 mg/dl (70-99) Lactic Acid Level 3.5 mmol/L (0.4-2.0) Calcium Level 6.0 mg/dl (8.5-10.1) Procalcitonin 19.72 ng/ml (0-0.5) Test 01/30/17 08:29 Prothrombin Time 11.3 SECONDS (9.0-12.0) Prothromb Time International Ratio 1.1 (0.9-1.1) Activated Partial Thromboplast Time 43.1 SECONDS (21.0-31.0) Partial Thromboplastin Ratio 1.7 Fibrinogen 510 mg/dl (184-400) Sodium Level 142 mmol/L (136-145) Potassium Level 4.1 mmol/L (3.5-5.1) Chloride Level 117 mmol/L (98-107) Carbon Dioxide Level 13 mmol/L (21-32) Anion Gap 12.0 mmol/L (3-11) Blood Urea Nitrogen 30 mg/dl (7-18) Creatinine 2.12 mg/dl (0.60-1.20) Est Creatinine Clear Calc Drug Dose 29.1 ml/min Estimated GFR () 28.8 Estimated GFR (Non- 24.8 BUN/Creatinine Ratio 14.2 (10-20) Random Glucose 115 mg/dl (70-99) Lactic Acid Level 3.8 mmol/L (0.4-2.0) Calcium Level 6.2 mg/dl (8.5-10.1) Heparin-PF4 Antibody Screen NEG (NEG) Assessment & Plan Assessment * 61 yo F admitted with weakness/dehydration/nausea/vomiting now critically ill in ICU requiring pressure support with norepinephrine * Has received 7-8 L of fluid since admission - some labs decreasing but this may be dilutional * Uterine CA on active chemotherapy - immunosuppression / lower WBC noted. Starting filgrastim daily. * Sepsis 2nd GNR bacteremia - source likely urine (GNR isolated), but could also be GI or central IV access. On cefepime, ciprofloxacin, metronidazole, and vancomycin * On cefepime, ciprofloxacin for double coverage of 2/2 GNR in blood - can de- escalate when sensitivities result * On vancomycin to cover MRSA 2nd central IV access - anticipate ability to d/ c soon pending culture results. Keeping for now 2nd severity of illness * On metronidazole to cover possible C. diff and intra-abdominal anaerobes * VAUGHN - SCr up to 2.12 mg/dL, baseline 0.6 mg/dL. Patient is generating very little urine (which is dark/concentrated per RN on ICU rounds) Vancomycin * No cultures with GPC's resulted and severity of illness may be explained with GNR in blood (which vancomycin will not cover) * However, keeping vancomycin for now 2nd severity of illness and risk for possible GPC infection 2nd central IV access and immunosuppression * Nasal MRSA negative (although pulmonary source unlikely therefore this provides little guidance) * Goal vancomycin trough 15-20 mcg/mL * Will dose via level for now 2nd significant VAUGHN and anticipated acute changes in renal function * Will obtain 1st level with next scheduled lab draw at 1200. This will be an 8 hour level after an 18 mg/kg loading dose Plan * Random vancomycin level @ 1200 * Will order one-time vancomycin doses based on level * Re-check random levels q12-24 hours for now (after doses or levels) Pharmacy will continue to follow and will adjust dose/frequency as necessary. Thank you
[2017-01-30] MEDS ORDERED: NURSING VERBAL MED ORDER ONE (11:00)
[2017-01-30] MEDS ORDERED: FAMOTIDINE IV INJ 20 MG in SYRINGE 3 ML IV ONE (11:15)
[2017-01-30] MEDS ORDERED: DiphenhydrAMINE HCL 50 MG/ML VIAL IV ONE (11:15)
[2017-01-30] MEDS ORDERED: METHYLPREDNISOLONE 40 MG in SYRINGE 0 ML IV ONE (11:15)
[2017-01-30] MEDS: ACETAMINOPHEN 325 MG TAB PO PRN (11:21)
[2017-01-30] MEDS ORDERED: OLANZAPINE 10 MG/2.1 ML SDV IM STA (11:39)
--- NOTE | 2017-01-30 12:30 | Medical Consult ---
Consultation Date of Consultation: Jan 30, 2017. Attending Physician: Gray Rust M.D. History of Present Illness Hematology/Oncology consult: Evaluation management of the uterine cancer, now admitted for elective right imbalance, altered mental status, worsening renal function test Date of consultation: 01/30/[address] Escalante. HPI: 61 year female A case of endometrial carcinoma, clear cell variant, localized disease involving the endometrium, no pelvic lymph kristin involvement, elevated CA 125 level around 95. She received 1st cycle of chemotherapy with paclitaxel and carboplatin on 2016, also received prophylactic Neulasta on the following day to prevent febrile neutropenia. She was admitted at [facility] on 01/08/2017 following 1st cycle of chemotherapy for altered mantle status, electrolyte imbalance, poor oral intake, and then she was discharged on 01/10/2017. I saw her the follow-up visit on 01/21/2017, her platelet count was around 74, 000 and so decided not to proceed with any kind of chemotherapy, hemoglobin was 8.5 and WBC was around 4100. Serum creatinine level was around 0.9 at that time. On 01/28/2017, patient daughter called office, she was quite sick, having hard time getting out of bed, poor oral intake and now she is admitted at [facility] on 01/29/2017. She had increasing nausea, intermittent vomiting, diarrhea, generalized weakness, poor oral intake. I saw her in the ICU, her blood pressure has remained slightly lower side, receiving nasal gemcitabine oxygen at 2 L/min, receiving pressor supports. Her hemoglobin level dropped down to around 6.4 g/dL as of today morning, white blood cell count is on the lower side around 1600, ANC is 1200. Platelet count was around 130 1000 yesterday, today it is around 81,000. Serum creatinine level was around 1.6 mg/dL yesterday, it has increased to around 2.1 mg/dL as of today. REVIEW OF SYSTEMS: Generalized weakness present, no weight loss reported, no bleeding from any sites, feeling weak and tired, no increasing cough or chest pain or increasing shortness of breath, she does complain of chronic back pain, leg pain, no increasing muscle pain, no swelling in the legs, denies any increasing urinary symptoms, no frequency or urgency. No focal neurological symptoms Past medical and surgical history: Other important the medical history: -History of gastric bypass surgery in 2006 at [facility]. -Persistent the abdominal wall wound with some slight discharge since the gastric bypass surgery. ~She says that she was seen in the wound clinic in [place], presently she is not on any antibiotic treatment. -Vitamin B12 deficiency, she is on Vitamin B12 replacement therapy (injection) every 3 monthly at [facility]. -DJD, she had bilateral knee joint replacement surgery and the left hip surgery x2, she is on Neurontin for the symptomatic treatment. -Hypothyroidism. -Factor V Leiden mutation was noted 1st time in 2013. ~She says that she had blood clot involving the left groin earlier when she underwent the gastric bypass surgery, she received oral Coumadin treatment for about 1 month at that time. ~Presently she is not on any anticoagulant treatment. - Osteoporosis, she is on Fosamax therapy. - She had 3 in the past. -She had open cholecystectomy. -Abdominal wall hernia repair 4 to 5 years back at [facility]. - Brain atrophy which is somewhat disproportionate to the her age noted in the brain MRI. Social history: Nonsmoker, denies any ETOH abuse. Family history: Not significant Medications: Presently she is on vancomycin, Cipro and Cefepime, heparin prophylaxis, -she received Neupogen 300 mcg 1st dose, she will receive Neupogen at 480 mcg every day. Allergies: None. On exam: - Alert and oriented x3, well built slightly obese woman, not in any distress. - HEENT: no icterus, no pallor, Throat: Normal. - Neck: No palpable cervical lymphadenopathy. - Chest: clear to auscultation. - Abdomen: soft, nontender, no hepatomegaly, no splenomegaly. - No focal neuro deficit. - Extremities: no finger clubbing, no leg edema. Lab: -Procalcitonin--> 19.7 (01/30/2017), it was around 0.1 earlier on January 08. -PT 11.3, PTT 43.1, level--> 510 (01/30/2017) - heparin antibody screen--> negative. -urine analysis done on 01/19/2017 showed occult blood 3+, moderate leukocyte esterase present, WBC more than 30/HPF. Urine culture gram-negative bacilli (01/29/2017) Blood culture gram-negative bacilli (01/29/2017) Imaging: -CT scan of the abdomen pelvis done on 01/30/2017--> no kidney stone hydronephrosis, moderate right and mild left perinephric infiltration, right- sided pyelonephritis could be possible, fatty changes noted in the liver, stable biliary ductal dilatation, S/P cholecystectomy noted. ASSESSMENT AND PLAN: 61-year-old male, a case of uterine cancer, clear cell variant, localized disease, no pelvic lymph node involvement, received neoadjuvant chemotherapy with paclitaxel and carboplatin on 12/31/2006, she did receive prophylactic Neulasta to prevent febrile neutropenia, she was admitted Hospital following that for 2 days but then she recovered well with IV hydration. She came to the clinic for 2nd cycle of chemotherapy on 01/21/2017 but because of low platelet count around 80,000, decided to hold chemotherapy treatment show she did not receive any kind of chemotherapy in the last one month. Now she is admitted in the hospital for gram-negative bacteremia, pyelonephritis , hypotension requiring pressor support, drop in the white blood cell count to around 1.6 with ANC of 1.2, hemoglobin level dropped down to around 6.4 g/dL, platelet count is around 81,000, no evidence of DIC noted in the recent blood workup. Presently she is receiving broad-spectrum antibiotic coverage, I agree about the Neupogen therapy to improve the neutrophil count. She will need blood transfusion support as needed. Will continue the current ICU management Will follow-up. Thanks for the consultation. Dr. Roberto García Hem/Onc (This note was completed using the dictation program Fluency Direct. As such, there may be misspellings, word substitutions, or other variations that should not change the essence of the clinical content of this encounter note. If there is need for further clarification, please direct questions to the provider listed above.) Past Medical/Surgical History Medical Problems: (1) Acute renal failure Status: Acute (2) Anemia Status: Acute (3) Femur fracture, left Status: Acute (4) Hypokalemia Status: Acute (5) Hypokalemia Status: Acute (6) Nausea vomiting and diarrhea Status: Acute Family History Diabetes mellitus SISTER FH: CAD (coronary artery disease) MOTHER ([place]) FH: cancer MOTHER (endometrial CA) SISTER (endometrial CA or ovarian CA) Social History Smoking Status: Never Smoker Smokeless Tobacco Use: No Alcohol Use: none Drug Use: none Marital Status: Occupation Status: disabled Allergies Coded Allergies: No Known Allergies (Verified , 01/29/17) Current Inpatient Medications Current Inpatient Medications Medications (Trade) Dose Ordered Sig/Alek Route Start Time Stop Time Status Last Admin Dose Admin Acetaminophen (Tylenol Tab) 650 mg Q4H PRN PO 01/29/17 12:15 02/28/17 12:14 01/30/17 11:21 650 MG Prochlorperazine Edisylate 5 mg/ Syringe 5 ml @ 5 mls/min Q6H PRN IV 01/29/17 13:00 02/28/17 12:59 Levothyroxine Sodium (Synthroid Tab) 100 mcg DAILYBB PO 01/30/17 06:00 03/01/17 05:59 01/30/17 05:53 100 MCG Lorazepam (Ativan Tab) 0.5 mg BID PRN PO 01/29/17 13:15 02/28/17 13:14 01/29/17 14:21 0.5 MG Pantoprazole Sodium (Protonix Tab) 40 mg QAM PO 01/30/17 09:00 03/01/17 08:59 01/30/17 09:25 40 MG Sertraline HCl (Zoloft Tab) 200 mg HS PO 01/29/17 21:00 02/28/17 20:59 01/29/17 20:58 200 MG Tramadol HCl (Ultram Tab) 50 mg Q6H PRN PO 01/29/17 13:15 02/28/17 13:14 01/29/17 23:37 50 MG Trazodone HCl (Desyrel Tab) 100 mg HS PO 01/29/17 21:00 02/28/17 20:59 01/29/17 20:58 100 MG Metronidazole 500 mg/Prmx 100 ml @ 100 mls/hr Q8H IV 01/30/17 00:30 02/09/17 00:29 01/30/17 09:24 100 MLS/HR Cefepime HCl (Consult) 1 ea DAILY PRN N/A 01/30/17 09:00 03/01/17 08:59 Vancomycin HCl (Consult) 1 ea UD PRN N/A 01/30/17 04:15 03/01/17 04:14 Gabapentin (Neurontin Cap) 200 mg TID PO 01/30/17 09:00 02/28/17 13:59 01/30/17 09:25 200 MG Norepinephrine Bitartrate 8 mg/ Dextrose 508 ml @ 0 mls/hr Q0M PRN IV 01/30/17 05:29 03/01/17 05:28 01/30/17 05:50 34.6 MLS/HR Cefepime HCl 2000 mg/Syringe 20 ml @ 5 mls/min DAILY@2100 IV 01/30/17 21:00 02/13/17 20:59 Filgrastim (Neupogen Sq) 480 mcg DAILY SQ 01/30/17 09:00 03/01/17 08:59 01/30/17 11:45 480 MCG Sodium Bicarbonate 75 meq/Sodium Chloride 1,075 ml @ 100 mls/hr [id number] IV 01/30/17 08:30 03/01/17 08:29 01/30/17 09:24 100 MLS/HR Ciprofloxacin (Consult) 1 ea UD PRN N/A 01/30/17 09:45 03/01/17 09:44 Ciprofloxacin/ Dextrose 400 mg/ Prmx 200 ml @ 100 mls/hr Q18H IV 01/31/17 04:00 02/14/17 03:59 Heparin Sodium (Porcine) (Heparin Sq 5000 Unit/0.5ml) 5,000 unit Q12 SQ 01/30/17 21:00 03/01/17 20:59 Physical Exam Date Time Temp Pulse Resp B/P (MAP) Pulse Ox O2 Delivery O2 Flow Rate FiO2 01/30/17 12:09 37.0 130 22 89/58 99 01/30/17 12:00 37.1 130 22 89/56 (67) 98 Nasal Cannula 2.0 01/30/17 11:30 37.1 130 22 89/56 99 2.0 01/30/17 10:50 36.8 130 22 91/58 99 2.0 01/30/17 10:35 36.9 131 22 91/57 99 01/30/17 10:25 36.9 131 22 89/69 99 2.0 01/30/17 08:00 Room Air 01/30/17 07:30 37.2 130 22 81/53 (62) 96 Nasal Cannula 2.0 01/30/17 07:30 Room Air 01/30/17 05:20 122 77/51 (60) 01/30/17 04:08 118 96/64 (75) 01/30/17 04:00 Room Air 01/30/17 03:40 37.2 115 20 83/53 (63) 90 Room Air 01/30/17 02:55 37.3 01/30/17 02:51 120 72/48 (56) 01/30/17 02:15 109 85/55 (65) 01/30/17 01:06 121 84/56 (65) 01/29/17 23:59 Room Air 01/29/17 23:35 37.7 120 20 74/54 (61) 95 Room Air 01/29/17 20:00 Room Air 01/29/17 19:39 36.5 74 18 107/65 (79) 96 01/29/17 16:12 36.9 84 18 119/64 (82) 96 01/29/17 16:00 Room Air 01/29/17 13:15 37.7 108 18 117/77 (90) 95 Room Air 01/29/17 13:03 99 16 99/63 99 01/29/17 12:38 99 Room Air 01/29/17 12:36 99 15 97 01/29/17 12:31 100/58 Laboratory Results Last 24 Hours Test 01/29/17 16:03 01/29/17 18:19 01/29/17 19:59 01/29/17 23:40 Lactic Acid Level 4.7 mmol/L 3.7 mmol/L 3.0 mmol/L Urine Color DK YELLOW Urine Appearance TURBID Urine pH 5.0 Urine Specific Hersey 1.028 Urine Protein 2+ Urine Glucose (UA) NEG Urine Ketones NEG Urine Occult Blood 3+ Urine Nitrite NEG Urine Bilirubin 1+ Urine Urobilinogen POS Urine Leukocyte Esterase MODERATE Urine WBC (Auto) >30 /hpf Urine RBC (Auto) 0-4 /hpf Urine Hyaline Casts (Auto) 0 /lpf Urine Epithelial Cells (Auto) >30 /lpf Urine Bacteria (Auto) 4+ Urine Pathogenic Casts 1-5 GRANULAR CASTS /lpf Urine Yeast (Auto) Test 01/30/17 00:25 01/30/17 04:14 01/30/17 08:29 01/30/17 11:52 Hemoglobin 7.3 g/dL 6.4 g/dL Hematocrit 23.5 % 20.7 % Sodium Level 139 mmol/L 139 mmol/L 142 mmol/L Potassium Level 3.6 mmol/L 3.8 mmol/L 4.1 mmol/L Chloride Level 110 mmol/L 114 mmol/L 117 mmol/L Carbon Dioxide Level 19 mmol/L 17 mmol/L 13 mmol/L Anion Gap 10.0 mmol/L 8.0 mmol/L 12.0 mmol/L Blood Urea Nitrogen 32 mg/dl 32 mg/dl 30 mg/dl Creatinine 2.09 mg/dl 2.11 mg/dl 2.12 mg/dl Est Creatinine Clear Calc Drug Dose 28.0 ml/min 27.8 ml/min 29.1 ml/min Estimated GFR () 29.3 29.0 28.8 Estimated GFR (Non- 25.3 25.0 24.8 BUN/Creatinine Ratio 15.2 15.3 14.2 Random Glucose 114 mg/dl 116 mg/dl 115 mg/dl Calcium Level 6.6 mg/dl 6.0 mg/dl 6.2 mg/dl Magnesium Level 1.6 mg/dl 1.9 mg/dl White Blood Count 1.65 K/uL Red Blood Count 2.33 M/uL Mean Corpuscular Volume 88.8 fL Mean Corpuscular Hemoglobin 27.5 pg Mean Corpuscular Hemoglobin Concent 30.9 g/dl Platelet Count 81 K/uL Mean Platelet Volume 9.1 fL RDW Standard Deviation 56.5 fL RDW Coefficient of Variation 21.8 % Neutrophils % (Manual) 77.9 % Lymphocytes % (Manual) 15.9 % Monocytes % (Manual) 4.4 % Eosinophils % (Manual) 0.9 % Basophils % (Manual) 0.9 % Neutrophils # (Manual) 1.29 K/uL Total Absolute Neutrophils 1.29 K/uL Lymphocytes # (Manual) 0.26 K/uL Total Absolute Lymphocytes 0.26 K/uL Monocytes # (Manual) 0.07 K/uL Eosinophils # (Manual) 0.01 K/uL Basophils # (Manual) 0.01 K/uL Toxic Granulation 2+ Toxic Vacuolation 3+ Dohle Bodies 3+ Platelet Estimate DECREASED Large Platelets 1+ Anisocytosis PRESENT Echinocytes 1+ Lactic Acid Level 3.5 mmol/L 3.8 mmol/L Procalcitonin 19.72 ng/ml Prothrombin Time 11.3 SECONDS Prothromb Time International Ratio 1.1 Activated Partial Thromboplast Time 43.1 SECONDS Partial Thromboplastin Ratio 1.7 Fibrinogen 510 mg/dl Heparin-PF4 Antibody Screen NEG Bedside Glucose (other) 137 mg/dl Test 01/30/17 11:53 01/30/17 12:00
--- NOTE | 2017-01-30 13:15 | ECHOCARDIOGRAM REPORT ---
*NOTICE TO RECEIVING CONSTITUTION PARTY AGENCY This information is strictly Confidential and protected under [place] law. [place] law prohibits you from making any further disclosure of this information unless further disclosure is expressly permitted by the written consent of the person to whom it pertains or is authorized by law. A general authorization for the release of medical or other information is not sufficient for this purpose. Hospital accepts no responsibility if the information is made available to any other person, INCLUDING THE PATIENT. Interpretation Summary * Name: TACOS AGUILERA Study Date: 01/30/2017 07:40 AM BP: 77/51 mmHg * [facility] HR: 132 * : 1955 (M/d/yyyy) Gender: Female Height: 60 in * Age: 61 yrs Ethnicity: CA Weight: 187 lb * Ordering Physician: Froylan Louis * Referring Physician: Self, Referred * Performed By: Gia Soriano RCS * * Reason For Study: HYPOTENSION * BSA: 1.8 m2 * -- Conclusions -- * Sinus tachycardia, rate 130 bpm * There is mild concentric left ventricular hypertrophy. * Left ventricular systolic function is normal. * No regional wall motion abnormalities noted. * Ejection Fraction = 65-70%. * There is no significant valvular disease * A very small posterolateral loculated pericardial effusion is present Procedure Details * A complete two-dimensional transthoracic echocardiogram was performed (2D, M-mode, Doppler and color flow Doppler). Left Ventricle * The left ventricle is normal in size. * There is mild concentric left ventricular hypertrophy. * Left ventricular systolic function is normal. * Ejection Fraction = 65-70%. * No regional wall motion abnormalities noted. Right Ventricle * The right ventricle is normal in size and function. Atria * The left atrial size is normal. * Right atrial size is normal. * No ASD detected; PFO is not assessed. Mitral Valve * The mitral valve anatomy is normal. * There is no mitral valve stenosis. * There is trace mitral regurgitation. Tricuspid Valve * The tricuspid valve anatomy is normal. * There is no tricuspid stenosis. * There is trace tricuspid regurgitation. Aortic Valve * The aortic valve is trileaflet. * No hemodynamically significant valvular aortic stenosis. * No aortic regurgitation is present. Pulmonic Valve * The pulmonic valve is not well visualized. Great Vessels * The aortic root is normal size. Pericardium/Pleural * Small pericardial effusion. * There are no echocardiographic indications of cardiac tamponade. Great Vessels * Normal inferior vena cava diameter and respiratory variation suggests normal central venous pressure. MMode 2D Measurements and Calculations IVSd 1.6 cm IVSs 1.8 cm LVIDd 4.6 cm LVIDs 3.2 cm LVPWd 1.3 cm LVPWs 1.7 cm IVS/LVPW 1.3 FS 30.1 % EDV(Teich) 95.4 ml ESV(Teich) 40.6 ml EF(Teich) 57.5 % EDV(cubed) 94.9 ml ESV(cubed) 32.4 ml EF(cubed) 65.9 % % IVS thick 10.7 % % LVPW thick 29.5 % LV mass(C)d 275.4 grams LV mass(C)dI 151.8 grams/m\S\2 LV mass(C)s 225.0 grams LV mass(C)sI 124.0 grams/m\S\2 SV(Teich) 54.9 ml SI(Teich) 30.2 ml/m\S\2 SV(cubed) 62.5 ml SI(cubed) 34.5 ml/m\S\2 Ao root diam 3.1 cm Ao root area 7.4 cm\S\2 ACS 2.1 cm LA dimension 3.6 cm LA/Ao 1.2 LVOT diam 2.0 cm LVOT area 3.3 cm\S\2 LVAd ap4 26.7 cm\S\2 LVLd ap4 7.6 cm EDV(MOD-sp4) 77.8 ml EDV(sp4-el) 79.9 ml LVAs ap4 17.7 cm\S\2 LVLs ap4 6.6 cm ESV(MOD-sp4) 39.5 ml ESV(sp4-el) 40.5 ml EF(MOD-sp4) 49.2 % EF(sp4-el) 49.3 % LVAd ap2 29.6 cm\S\2 LVLd ap2 7.6 cm EDV(MOD-sp2) 94.7 ml EDV(sp2-el) 97.7 ml LVAs ap2 19.0 cm\S\2 LVLs ap2 6.3 cm ESV(MOD-sp2) 47.8 ml ESV(sp2-el) 48.9 ml EF(MOD-sp2) 49.5 % EF(sp2-el) 50.0 % LVLd %diff 0.90 % EDV(MOD-bp) 86.8 ml LVLs %diff -5.12 % ESV(MOD-bp) 44.5 ml EF(MOD-bp) 48.7 % SV(MOD-sp4) 38.3 ml SI(MOD-sp4) 21.1 ml/m\S\2 SV(MOD-sp2) 46.9 ml SI(MOD-sp2) 25.9 ml/m\S\2 SV(MOD-bp) 42.3 ml SI(MOD-bp) 23.3 ml/m\S\2 SV(sp4-el) 39.4 ml SI(sp4-el) 21.7 ml/m\S\2 SV(sp2-el) 48.8 ml SI(sp2-el) 26.9 ml/m\S\2 Doppler Measurements and Calculations Ao V2 max 122.4 cm/sec Ao max PG 6.0 mmHg Ao max PG (full) 1.8 mmHg JUAN(V,A) 2.7 cm\S\2 JUAN(V,D) 2.7 cm\S\2 LV V1 max PG 4.2 mmHg LV V1 max 101.9 cm/sec
[2017-01-30] MEDS ORDERED: VANCOMYCIN INJ 1,250 MG in SODIUM CHLORIDE 0.9% 250ML 250 ML IV ONE (13:30)
[2017-01-30] MEDS ORDERED: SODIUM CHLORIDE 0.9% 500ML 500 ML IV SCH ×2 (14:30)
--- NOTE | 2017-01-30 18:23 | Critical Care Consultation ---
Critical Care Consultation Date of Consultation: Jan 30, 2017. Attending Physician: Gray Rust M.D. Reason for Consultation: Sepsis with septic shock. History of Present Illness Dear Dr. Woodson: Thank you for your kind referral of Mrs. Elaine to critical care service. This is a 61-year-old female with history of endometrial cancer with metastasis to the pelvic lymph nodes status post chemotherapy a month ago, the patient did have an episode of diarrhea where she was admitted 3 weeks ago to the hospital. The patient was discharged and return back again with increased back pain accompanied with dysuria and polyuria as well. The patient did have episode of nausea and vomiting as well as diarrhea. The patient was found to be hypotensive and required multiple liters of normal saline infusion. The patient was admitted to the hospital and then transferred to the ICU after the decision to start her on pressors was made. The patient denies any chest pain, no shortness of breath, no cough no hemoptysis. Denies any menorrhagia or menorrhea. The patient did not have hysterectomy yet. She has no increased abdominal pain and she has no change in her bowel movements. She did have episode of diarrhea but not on this admission. She did have increased swelling in her lower extremities. The patient started empirically on antibiotics including vancomycin, cefepime and Flagyl. The patient this is positive with 2 out of 2 bottles of gram- negative dash in the blood. Due to aggressive hydration, the patient hematocrit dropped down to 20. She was transfused 2 units of blood that was difficult to match and brought from another facility. The patient did develop back pain during the infusion and has to be premedicated with Solu-Medrol, H1 and H2 blockers. The patient did well in that regard. Her urine output remains marginal despite aggressive fluid management. Urine creatinine has been elevated. The rest of the review of system was unremarkable except for the above. Family History Diabetes mellitus SISTER FH: CAD (coronary artery disease) MOTHER (DE) FH: cancer MOTHER (endometrial CA) SISTER (endometrial CA or ovarian CA) Social History Smoking Status: Never Smoker Smokeless Tobacco Use: No Alcohol Use: none Drug Use: none Marital Status: Occupation Status: disabled Allergies Coded Allergies: No Known Allergies (Verified , 01/29/17) Home Medications Scheduled Alendronate Sodium (Fosamax), 70 MG PO WK Atorvastatin (Lipitor), 40 MG PO HS Cholecalciferol (Vitamin D 1000 Unit), 4,000 INTER.UNIT PO DAILY Dexamethasone (Decadron), 5 TAB PO UD Gabapentin (Neurontin), 300 MG PO TID Hydrochlorothiazide (Hctz), 12.5 MG PO DAILY Levothyroxine Sodium (Synthroid), 100 MCG PO DAILY Meloxicam (Mobic), 15 MG PO DAILY Metoprolol Succ (Toprol Xl) (Toprol-Xl), 50 MG PO QAM Ondansetron Hcl (Zofran), 8 MG PO Q8 Oxybutynin Chloride (Oxybutynin Chloride Er), 10 MG PO QAM Pantoprazole (Protonix), 40 MG PO QAM Prochlorperazine Maleate (Compazine), 1 TAB PO Q6 Sertraline (Zoloft), 200 MG PO HS Trazodone Hcl (Trazodone), 100 MG PO HS Scheduled PRN Acetaminophen (Tylenol), 1,000 MG PO Q6 PRN for Pain or Fever Lorazepam (Ativan), 0.5 MG PO BID PRN for Anxiety Tramadol (Ultram), 50 MG PO Q6H PRN for Pain Current Inpatient Medications Current Inpatient Medications Medications (Trade) Dose Ordered Sig/Alek Route Start Time Stop Time Status Last Admin Dose Admin Acetaminophen (Tylenol Tab) 650 mg Q4H PRN PO 01/29/17 12:15 02/28/17 12:14 01/30/17 11:21 650 MG Prochlorperazine Edisylate 5 mg/ Syringe 5 ml @ 5 mls/min Q6H PRN IV 01/29/17 13:00 02/28/17 12:59 Levothyroxine Sodium (Synthroid Tab) 100 mcg DAILYBB PO 01/30/17 06:00 03/01/17 05:59 01/30/17 05:53 100 MCG Lorazepam (Ativan Tab) 0.5 mg BID PRN PO 01/29/17 13:15 02/28/17 13:14 01/29/17 14:21 0.5 MG Pantoprazole Sodium (Protonix Tab) 40 mg QAM PO 01/30/17 09:00 03/01/17 08:59 01/30/17 09:25 40 MG Sertraline HCl (Zoloft Tab) 200 mg HS PO 01/29/17 21:00 02/28/17 20:59 01/29/17 20:58 200 MG Tramadol HCl (Ultram Tab) 50 mg Q6H PRN PO 01/29/17 13:15 02/28/17 13:14 01/29/17 23:37 50 MG Trazodone HCl (Desyrel Tab) 100 mg HS PO 01/29/17 21:00 02/28/17 20:59 01/29/17 20:58 100 MG Metronidazole 500 mg/Prmx 100 ml @ 100 mls/hr Q8H IV 01/30/17 00:30 02/09/17 00:29 01/30/17 17:12 100 MLS/HR Cefepime HCl (Consult) 1 ea DAILY PRN N/A 01/30/17 09:00 03/01/17 08:59 Vancomycin HCl (Consult) 1 ea UD PRN N/A 01/30/17 04:15 03/01/17 04:14 Gabapentin (Neurontin Cap) 200 mg TID PO 01/30/17 09:00 02/28/17 13:59 01/30/17 15:04 200 MG Norepinephrine Bitartrate 8 mg/ Dextrose 508 ml @ 0 mls/hr Q0M PRN IV 01/30/17 05:29 03/01/17 05:28 01/30/17 15:07 30 MLS/HR Cefepime HCl 2000 mg/Syringe 20 ml @ 5 mls/min DAILY@2100 IV 01/30/17 21:00 02/13/17 20:59 Filgrastim (Neupogen Sq) 480 mcg DAILY SQ 01/30/17 09:00 03/01/17 08:59 01/30/17 11:45 480 MCG Sodium Bicarbonate 75 meq/Sodium Chloride 1,075 ml @ 150 mls/hr Q7H10M IV 01/30/17 08:30 03/01/17 08:29 01/30/17 17:12 150 MLS/HR Ciprofloxacin (Consult) 1 ea UD PRN N/A 01/30/17 09:45 03/01/17 09:44 Ciprofloxacin/ Dextrose 400 mg/ Prmx 200 ml @ 100 mls/hr Q18H IV 01/31/17 04:00 02/14/17 03:59 Heparin Sodium (Porcine) (Heparin Sq 5000 Unit/0.5ml) 5,000 unit Q12 SQ 01/30/17 21:00 03/01/17 20:59 Review of Systems Constitutional: + fever, + chills, + weakness ENT: + sore throat Respiratory: No cough, No sputum, No wheezing, No shortness of breath, No dyspnea on exertion, No dyspnea at rest, No hemoptysis, No problem reported Cardiovascular: No chest pain, No orthopnea, No PND, No edema, No claudication , No palpitations, No problem reported Abdomen: + pain, + nausea, + vomiting, + diarrhea Musculoskeletal: No joint pain, No muscle pain, No swelling, No calf pain, No problem reported Genitourinary - Female: + urinary frequency, + urinary urgency, + metrorrhagia , No dysuria, No urinary incontinence, No urinary retention, No hematuria, No dysmenorrhea, No menorrhagia, No rash, No vaginal bleeding, No vaginal discharge , No vaginal itching, No vulvodynia, No , No problem reported Neurologic: No memory loss, No paralysis, No weakness, No numbness/tingling, No vertigo, No balance problems, No problem reported Psychiatric: No depression symptoms, No anhedonism, No anxiety, No insomnia, No substance abuse, No problem reported Allergic / Immunologic: No environmental allergies, No seasonal allergies, No pet sensitivities, No food allergies, No hives, No frequent infections, No poor healing, No prolonged convalescence, No problem reported Physical Exam Date Time Temp Pulse Resp B/P (MAP) Pulse Ox O2 Delivery O2 Flow Rate FiO2 01/30/17 17:45 125 22 97 01/30/17 17:31 125 26 100/69 (79) 01/30/17 17:30 125 25 97 01/30/17 17:16 125 22 108/57 (74) 97 01/30/17 17:15 125 23 97 01/30/17 17:01 127 23 112/67 (82) 97 01/30/17 17:00 127 22 97 01/30/17 16:46 127 22 105/74 (84) 97 01/30/17 16:45 128 20 97 01/30/17 16:31 128 22 112/65 (81) 01/30/17 16:30 127 21 97 12/15/17 16:16 130 30 112/74 (87) 97 12/15/17 16:15 128 28 97 12/15/17 16:01 130 20 108/74 (85) 98 12/15/17 16:00 130 16 97 12/15/17 15:46 129 29 99/75 (83) 97 12/15/17 15:45 130 27 97 12/15/17 15:35 37.1 128 24 104/75 98 2.0 1215/17 15:31 131 36 104/75 (85) 97 12/15/17 15:30 Room Air 2.0 1215/17 15:30 130 28 97 12/15/17 15:15 130 24 98 12/15/17 15:01 130 21 105/68 (80) 98 15/17 15:00 129 22 97 15/17 14:46 131 21 101/72 (82) 98 15/17 14:45 130 19 97 15/17 14:31 131 19 96/76 (83) 98 15/17 14:30 131 22 98 15/17 14:30 37.1 132 23 102/61 98 2.0 15/17 14:16 131 18 102/61 (75) 97 15/17 14:15 131 22 97 15/17 14:02 37.0 130 22 96/78 97 15/17 14:01 130 22 96/78 (84) 98 15/17 14:00 132 24 97 15/17 13:46 132 24 90/64 (73) 98 15/17 13:45 130 25 98 15/17 13:41 36.4 129 22 90/59 97 15/17 13:31 131 17 90/59 (69) 98 15/17 13:30 131 17 98 15/17 13:16 131 20 97/61 (73) 98 15/17 13:15 132 24 98 15/17 13:09 37.2 132 22 97/59 99 15/17 13:01 131 26 97/58 (71) 98 15/17 13:00 131 19 98 1215/17 12:15 131 17 99 15/17 12:09 37.0 130 22 89/58 99 12/15/17 12:01 131 29 89/58 (68) 98 01/30/17 12:00 131 25 99 01/30/17 12:00 37.1 130 22 89/56 (67) 98 Nasal Cannula 2.0 01/30/17 11:46 130 25 82/65 (71) 99 01/30/17 11:45 130 31 99 01/30/17 11:31 133 27 88/61 (70) 98 01/30/17 11:30 37.1 130 22 89/56 99 2.0 01/30/17 11:30 2.0 01/30/17 11:30 134 24 99 01/30/17 11:16 130 31 84/60 (68) 99 01/30/17 11:15 132 26 100 01/30/17 11:01 131 20 91/58 (69) 98 01/30/17 11:00 131 26 98 01/30/17 10:50 36.8 130 22 91/58 99 2.0 01/30/17 10:46 129 21 83/56 (65) 99 01/30/17 10:45 130 22 99 01/30/17 10:35 36.9 131 22 91/57 99 01/30/17 10:31 131 19 91/57 (68) 100 01/30/17 10:30 131 21 100 01/30/17 10:25 36.9 131 22 89/69 99 2.0 01/30/17 10:16 132 30 89/69 (76) 99 01/30/17 10:15 134 26 100 01/30/17 10:01 132 33 83/60 (68) 98 01/30/17 10:00 134 22 99 01/30/17 09:31 133 18 92/76 (81) 99 01/30/17 09:30 133 20 100 01/30/17 09:16 136 17 91/71 (78) 97 01/30/17 09:15 137 24 112/82 (92) 97 01/30/17 08:45 133 19 01/30/17 08:31 130 20 98/55 (69) 95 01/30/17 08:30 132 19 95 01/30/17 08:16 131 17 81/53 (62) 96 01/30/17 08:15 131 17 96 01/30/17 08:01 135 18 106/75 (85) 95 01/30/17 08:00 Room Air 01/30/17 08:00 133 23 96 01/30/17 07:46 131 23 102/61 (75) 97 01/30/17 07:45 131 23 96 01/30/17 07:32 130 19 94/58 (70) 97 01/30/17 07:30 130 25 97 01/30/17 07:30 37.2 130 22 81/53 (62) 96 Nasal Cannula 2.0 01/30/17 07:30 Room Air 01/30/17 07:16 128 21 84/53 (63) 99 01/30/17 07:15 128 18 99 01/30/17 07:01 128 20 86/51 (63) 98 01/30/17 07:00 127 39 97 01/30/17 05:20 122 77/51 (60) 01/30/17 04:08 118 96/64 (75) 01/30/17 04:00 Room Air 01/30/17 03:40 37.2 115 20 83/53 (63) 90 Room Air 01/30/17 02:55 37.3 01/30/17 02:51 120 72/48 (56) 01/30/17 02:15 109 85/55 (65) 01/30/17 01:06 121 84/56 (65) 01/29/17 23:59 Room Air 01/29/17 23:35 37.7 120 20 74/54 (61) 95 Room Air 01/29/17 20:00 Room Air 01/29/17 19:39 36.5 74 18 107/65 (79) 96 General Appearance: uncomfortable Eyes: PERRLA, EOMI ENT: normal mouth exam, other (alopecia) Neck: normal range of motion Respiratory: breath sounds normal, clear to auscultation, clear to percussion Cardiovasular: regular rate/rhythm, normal S1S2, no M/G/R, no murmur Abdomen: non tender, no rebound, no masses Back: other (back pain at the right flank.) Neuro: alert, oriented x 3, normal motor exam Psychiatric: normal affect Laboratory Results Last 24 Hours Test 01/29/17 18:19 01/29/17 19:59 01/29/17 23:40 01/30/17 00:25 Urine Color DK YELLOW Urine Appearance TURBID Urine pH 5.0 Urine Specific [place] 1.028 Urine Protein 2+ Urine Glucose (UA) NEG Urine Ketones NEG Urine Occult Blood 3+ Urine Nitrite NEG Urine Bilirubin 1+ Urine Urobilinogen POS Urine Leukocyte Esterase MODERATE Urine WBC (Auto) >30 /hpf Urine RBC (Auto) 0-4 /hpf Urine Hyaline Casts (Auto) 0 /lpf Urine Epithelial Cells (Auto) >30 /lpf Urine Bacteria (Auto) 4+ Urine Pathogenic Casts 1-5 GRANULAR CASTS /lpf Urine Yeast (Auto) Lactic Acid Level 3.7 mmol/L 3.0 mmol/L Hemoglobin 7.3 g/dL Hematocrit 23.5 % Sodium Level 139 mmol/L Potassium Level 3.6 mmol/L Chloride Level 110 mmol/L Carbon Dioxide Level 19 mmol/L Anion Gap 10.0 mmol/L Blood Urea Nitrogen 32 mg/dl Creatinine 2.09 mg/dl Est Creatinine Clear Calc Drug Dose 28.0 ml/min Estimated GFR () 29.3 Estimated GFR (Non- 25.3 BUN/Creatinine Ratio 15.2 Random Glucose 114 mg/dl Calcium Level 6.6 mg/dl Magnesium Level 1.6 mg/dl Test 01/30/17 04:14 01/30/17 08:29 01/30/17 11:52 01/30/17 11:53 White Blood Count 1.65 K/uL Red Blood Count 2.33 M/uL Hemoglobin 6.4 g/dL Hematocrit 20.7 % Mean Corpuscular Volume 88.8 fL Mean Corpuscular Hemoglobin 27.5 pg Mean Corpuscular Hemoglobin Concent 30.9 g/dl Platelet Count 81 K/uL Mean Platelet Volume 9.1 fL RDW Standard Deviation 56.5 fL RDW Coefficient of Variation 21.8 % Neutrophils % (Manual) 77.9 % Lymphocytes % (Manual) 15.9 % Monocytes % (Manual) 4.4 % Eosinophils % (Manual) 0.9 % Basophils % (Manual) 0.9 % Neutrophils # (Manual) 1.29 K/uL Total Absolute Neutrophils 1.29 K/uL Lymphocytes # (Manual) 0.26 K/uL Total Absolute Lymphocytes 0.26 K/uL Monocytes # (Manual) 0.07 K/uL Eosinophils # (Manual) 0.01 K/uL Basophils # (Manual) 0.01 K/uL Toxic Granulation 2+ Toxic Vacuolation 3+ Dohle Bodies 3+ Platelet Estimate DECREASED Large Platelets 1+ Anisocytosis PRESENT Echinocytes 1+ Sodium Level 139 mmol/L 142 mmol/L Potassium Level 3.8 mmol/L 4.1 mmol/L Chloride Level 114 mmol/L 117 mmol/L Carbon Dioxide Level 17 mmol/L 13 mmol/L Anion Gap 8.0 mmol/L 12.0 mmol/L Blood Urea Nitrogen 32 mg/dl 30 mg/dl Creatinine 2.11 mg/dl 2.12 mg/dl Est Creatinine Clear Calc Drug Dose 27.8 ml/min 29.1 ml/min Estimated GFR () 29.0 28.8 Estimated GFR (Non- 25.0 24.8 BUN/Creatinine Ratio 15.3 14.2 Random Glucose 116 mg/dl 115 mg/dl Lactic Acid Level 3.5 mmol/L 3.8 mmol/L 3.8 mmol/L Calcium Level 6.0 mg/dl 6.2 mg/dl Magnesium Level 1.9 mg/dl Procalcitonin 19.72 ng/ml Prothrombin Time 11.3 SECONDS Prothromb Time International Ratio 1.1 Activated Partial Thromboplast Time 43.1 SECONDS Partial Thromboplastin Ratio 1.7 Fibrinogen 510 mg/dl Heparin-PF4 Antibody Screen NEG Bedside Glucose (other) 137 mg/dl Random Vancomycin Level 19.8 mcg/ml Test 01/30/17 12:00 Diagnostic Results CAT scan of the abdomen was reviewed personally which showed stranding of the fat tissue around the right kidney consistent with acute pyelonephritis. Chest x-ray was normal a Port-A-Cath was in place. Assessment & Plan #1 septic shock secondary to gram-negative bacteremia. #2 acute pyelonephritis with UTI. #3 postchemotherapy neutropenia. #4 diarrhea possibly related to enteropathy. #5 endometrial cancer status post chemotherapy a month ago. #6 acute kidney insufficiency secondary to above. #7 gram-negative bacteremia, identification of the pathogen is yet to be determined. #8 history of factor V Leiden deficiency. #9 history of diabetes and hyperlipidemia. #10 history of hypothyroidism. Plan: #1 I would continue with aggressive treatment with IV fluids but I will reduce the rate to 150 mL an hour. #2 monitor the urine output closely. #3 due to the presence of gram-negative bacteremia in an immunocompromised patient I have added the double coverage antibiotic including cefepime and Cipro after discussion with pharmacy. We will continue with vancomycin and Flagyl until reporting out gram-positive antigens entirely. #4 start the patient on Levothroid and titrated to a map of 65. #5 start the patient on IV fluids with half-normal saline and half of bicarbonate. #6 due to neutropenia I was started patient on Neupogen 5 mics per kilogram daily dose. #7 oral intake. #8 agree with blood transfusion. #9 premedicated for blood transfusion. #10 I will start the patient on heparin subcutaneous as she is at very high risk of developing DVT given the fact that she does have factor V deficiency as well as malignancy. I have started her empirically on heparin subcutaneous. I could not start Lovenox or Arixtra due to abnormal kidney function. #11 I will watch for her. This closely. #12 case discussed with pharmacy, the staff, and the patient in details. Critical care time spent with the patient was 45 minutes.
[2017-01-30 19:01] LABS: HEMATOCRIT 30.8 % (37-47); HEMOGLOBIN 9.8 g/dL (12.0-16.0)
[2017-01-30] MEDS: TRAZODONE HCL 100 MG TAB PO SCH (21:00)
[2017-01-30] MEDS ORDERED: CEFEPIME IV 2,000 MG in SYRINGE 7.5 ML IV SCH (21:00)
[2017-01-30] MEDS: SERTRALINE HCL 100 MG TAB PO SCH (21:18)
[2017-01-30] MEDS: HEPARIN SOD 5000 UNIT/0.5 ML CARP SQ SCH (21:18)
[2017-01-31] VITALS (37 sets, daily range): BP systolic 88–125; BP diastolic 66–99; PULSE 102–121; TEMP 36.6–36.9; O2SAT 90–97
[2017-01-31] MEDS: SODIUM BICARBONATE 8.4% INJ 75 MEQ in SODIUM CHLORIDE 0.45% 1000ML 1,000 ML IV SCH ×3 (00:37→14:46)
[2017-01-31] MEDS: METRONIDAZOLE / NSS 500 MG in PREMIXED NSS 100 ML IV SCH (00:37)
[2017-01-31] MEDS ORDERED: CIPROFLOXACIN 400MG / D5W IV SCH (04:00)
[2017-01-31 05:17] LABS: HEMATOCRIT 29.8 % (37-47); HEMOGLOBIN 9.3 g/dL (12.0-16.0); MEAN CELL VOLUME 87.1 fL (80-100); MEAN CORPUSCULAR HEMOGLOBIN 27.2 pg (25-34); MEAN CORPUSCULAR HGB CONC 31.2 g/dl (32-36); RED CELL DISTRIBUTION WIDTH CV 20.5 % (11.5-14.5); WHITE BLOOD COUNT 6.97 K/uL (4.8-10.8)
[2017-01-31] MEDS: LEVOTHYROXINE 100 MCG TAB PO SCH (05:32)
[2017-01-31 05:33] LABS: MEAN PLATELET VOLUME 9.8 fL (7.4-10.4); PLATELET COUNT 96 K/uL (130-400)
[2017-01-31 05:40] LABS: CREATININE 2.11 mg/dl (0.60-1.20); PHOSPHORUS 2.3 mg/dl (2.5-4.9); POTASSIUM 4.6 mmol/L (3.5-5.1)
[2017-01-31] MEDS: PANTOprazole SOD 40 MG TAB PO SCH (09:26)
[2017-01-31] MEDS: GABAPENTIN 100 MG CAP PO SCH ×3 (09:26→20:53)
[2017-01-31] MEDS: ACETAMINOPHEN 325 MG TAB PO PRN (09:28)
[2017-01-31] MEDS: HEPARIN SOD 5000 UNIT/0.5 ML CARP SQ SCH ×2 (09:30→20:56)
--- NOTE | 2017-01-31 09:48 | Progress Note ---
Progress Note Date of Service Jan 31, 2017. Progress Note Subjective S/P 2 units of PRBC in the ICU on 01/31/17. Heart rate better controlled. Patient subjectively feeling better Physical Exam Heart: Tachycardic to 113, this is an improvement from HR of around 130 yesterday Lungs: Clear to anterior auscultation Abdomen: soft, nontender Legs: in SCDs Imaging Scans to date: 01/30/17 CT abdomen when patient was in ICU 1. No urinary calculi or hydronephrosis. 2. Moderate right and mild left perinephric infiltration. While nonspecific, right-sided pyelonephritis could have this appearance. No renal abscess identified on unenhanced CT. 3. Fatty infiltration of the liver. 4. Stable biliary ductal dilatation which is likely related to prior cholecystectomy. 5. No bowel obstruction. Normal appendix. 01/30/17 Echocardiogram when patient was tachycardic in the ICU Sinus tachycardia, rate 130 bpm There is mild concentric left ventricular hypertrophy. Left ventricular systolic function is normal. No regional wall motion abnormalities noted. Ejection Fraction = 65-70%. There is no significant valvular disease A very small posterolateral loculated pericardial effusion is present 01/29/17 Urine: ESCHERICHIA COLI Target Route Dose RX AB Cost M.I.C. IQ ------ ----- ------ -- ------ -------- - ------ TRIMET/SULFA S <=2/38 AMPICILLIN R >16 AMPICILLIN/SUL R >16/8 CEFAZOLIN S <=8 CEFOXITIN S <=8 CEFOTAXIME S <=2 CEFTRIAXONE S <=1 CEFEPIME S <=4 CEFUROXIME S <=4 IMIPENEM S <=1 GENTAMICIN S <=4 TOBRAMYCIN S <=4 AMIKACIN S <=16 CIPROFLOXACIN S <=1 LEVOFLOXACIN S <=2 ERTAPENEM S <=1 NITROFURANTOIN S <=32 PIP/TAZO S <=16 01/29/17 Blood: ESCHERICHIA COLI Target Route Dose RX AB Cost M.I.C. IQ ------ ----- ------ -- ------ -------- - ------ TRIMET/SULFA S <=2/38 AMPICILLIN R >16 AMPICILLIN/SUL I 16 CEFAZOLIN S <=8 CEFOXITIN S <=8 CEFOTAXIME S <=2 CEFTRIAXONE S <=1 CEFEPIME S <=4 CEFUROXIME S <=4 IMIPENEM S <=1 GENTAMICIN S <=4 TOBRAMYCIN S <=4 AMIKACIN S <=16 CIPROFLOXACIN S <=1 LEVOFLOXACIN S <=2 ERTAPENEM S <=1 PIP/TAZO S <=16 Current medications Acetaminophen 650 mg q4 hours prn pain of fever Cefepime 2 gram IV daily Gabapentin 200 mg TID Heparin subc q12 hours Levothyroxine 100 mg daily Lorazepam 0.5 mg PO BID prn anxiety Pantoprazole 40 mg daily Sertraline 200 mg qhs Prochlorperazine 5 mg q6h prn nausea NS 150 cc/hr Tramadol 50 mg PO q6h prn pain Assessment/Plan Infection Septic shock secondary to bacteremia of E.coli, acute pyelonephritis with UTI with E.coli Now does not have requirements for pressors continue Cefepime 2 gram IV daily for now continue to monitor for symptoms, de-escalate antibiotics in future when patient continues to be hemodynamically stable and better control of tachycardia Acetaminophen 650 mg q4 hours prn pain of fever Tachycardia from sepsis hold home dose Metoprolol for now as blood pressure is lower side of normal parameters Blood pressure, Hypotension from sepsis hold home dose HCTZ for now as blood pressure is lower side of normal parameters Hemoncology - pancytopenia likely due to side effects of chemotherapy endometrial cancer status post chemotherapy a month ago, postchemotherapy neutropenia, history of factor V Leiden deficiency. S/P 2 units of PRBC in the ICU on 01/31/17 S/P Neupogen in the ICU 5 mics per kilogram daily dose on 01/31/17 hematology-oncology consult following Acute kidney Injury continue NS 150 cc/hr, trend GFR History of hypothyroidism continue Levothyroxine 100 mg daily History of diabetes and hyperlipidemia monitor glucose GI Diarrhea possibly related to enteropathy, 01/30/17 C. Difficile negative NAUSEA: Prochlorperazine 5 mg q6h prn nausea CHRONIC BACK PAIN: Gabapentin 200 mg TID , Tramadol 50 mg PO q6h prn pain DEPRESSION/ANXIETY: uses SSRI, Ativan prn anxiety, trazodone HS prn insomnia DVT ppx SCD, Heparin subc q12 hours Disposition: Transfer from ICU to telemetry [facility] today
--- NOTE | 2017-01-31 10:49 | Critical Care Progress Note ---
Critical Care Progress Note Date of Service Jan 31, 2017. Attending Dr. Oleary Subjective The patient feels better, and back pain has resolved, she did not have any dysuria, and the diarrhea is slowing down. The rest of her review of system was unremarkable. She denies any chest pain or shortness of breath, no dizziness or near syncopal episode. Objective Physical exam revealed stable vital signs, heart examination S1-S2 regular rate and rhythm, slightly tachycardic. Lungs with distant breath sounds bilaterally. Abdomen is benign nontender in the flank. She does have edema in the extremities. Current SOFA Score SOFA Score Response (Comments) Value PaO2/FiO2 (mmHg) < 400 1 SaO2 / FIO2 221 - 301 1 Platelets (x10) > 150 0 Bilirubin (mg/dL) < 1.2 0 Baker Coma Score 15 0 Level of Hypotension No Hypotension 0 Creatinine (mg/dL) 2.0 - 3.4 2 Total 4 Assessment & Plan #1 septic shock, resolved, the patient is off pressors. #2 lactic acidosis, resolved, the patient had hyperchloremic metabolic acidosis with no other 9. #3 acute kidney insufficiency has been stabilized with creatinine of 2.1, her urine output is adequate. The patient still fluid balance positive approximately 6 L. #4 resolved neutropenia with ANC returned back to normal. #5 endometrial cancer status post chemotherapy a month ago. #6 acute pyelonephritis with UTI, bacteremia with Escherichia coli, pansensitive. #7 diabetes. Plan: #1 I will start the patient back again on the diet as her diarrhea has been improving. #2 I will stop Cipro. #3 I will stop Levophed. #4 I will stop Neupogen. #5 I will stop vancomycin. #6 I will continue with cefepime. #[address] García input. #8 daily labs. #9 continue with IV fluid half bicarbonate half normal saline. The rate can be adjusted later as the patient started developing edema. #10 glucose control. #11 the patient can be transferred to a regular floor. I appreciate Dr. Doty acceptance of this case to the floor. #12 case discussed with the staff on rounds and details. Critical care time spent with the patient was 45 minutes. Consults & Procedures Consultants: Oncology Procedures: None Data Medications: Current Inpatient Medications Medications (Trade) Dose Ordered Sig/Alek Route Start Time Stop Time Status Last Admin Dose Admin Acetaminophen (Tylenol Tab) 650 mg Q4H PRN PO 01/29/17 12:15 02/28/17 12:14 01/31/17 09:28 650 MG Prochlorperazine Edisylate 5 mg/ Syringe 5 ml @ 5 mls/min Q6H PRN IV 01/29/17 13:00 02/28/17 12:59 Levothyroxine Sodium (Synthroid Tab) 100 mcg DAILYBB PO 01/30/17 06:00 03/01/17 05:59 01/31/17 05:32 100 MCG Lorazepam (Ativan Tab) 0.5 mg BID PRN PO 01/29/17 13:15 02/28/17 13:14 01/29/17 14:21 0.5 MG Pantoprazole Sodium (Protonix Tab) 40 mg QAM PO 01/30/17 09:00 03/01/17 08:59 01/31/17 09:26 40 MG Sertraline HCl (Zoloft Tab) 200 mg HS PO 01/29/17 21:00 02/28/17 20:59 01/30/17 21:18 200 MG Tramadol HCl (Ultram Tab) 50 mg Q6H PRN PO 01/29/17 13:15 02/28/17 13:14 01/29/17 23:37 50 MG Cefepime HCl (Consult) 1 ea DAILY PRN N/A 01/30/17 09:00 03/01/17 08:59 Gabapentin (Neurontin Cap) 200 mg TID PO 01/30/17 09:00 02/28/17 13:59 01/31/17 09:26 200 MG Cefepime HCl 2000 mg/Syringe 20 ml @ 5 mls/min DAILY@2100 IV 01/30/17 21:00 02/13/17 20:59 01/30/17 21:17 5 MLS/MIN Sodium Bicarbonate 75 meq/Sodium Chloride 1,075 ml @ 150 mls/hr Q7H10M IV 01/30/17 08:30 03/01/17 08:29 01/31/17 10:18 150 MLS/HR Heparin Sodium (Porcine) (Heparin Sq 5000 Unit/0.5ml) 5,000 unit Q12 SQ 01/30/17 21:00 03/01/17 20:59 01/31/17 09:30 5,000 UNIT Vital Signs: Date Time Temp Pulse Resp B/P (MAP) Pulse Ox O2 Delivery O2 Flow Rate FiO2 01/31/17 07:59 95 Nasal Cannula 2.0 01/31/17 07:54 36.7 104 24 103/67 (79) 95 Nasal Cannula 2.0 01/31/17 06:01 104 19 115/73 (80) 94 01/31/17 05:01 107 20 112/72 (96) 96 01/31/17 04:01 105 11 103/68 (71) 95 01/31/17 04:00 36.7 01/31/17 04:00 96 Nasal Cannula 1.0 01/31/17 03:01 108 10 88/66 (71) 96 01/31/17 02:01 113 27 99/71 (82) 95 01/31/17 01:01 116 19 104/75 (90) 96 01/31/17 00:01 117 21 109/78 (81) 97 01/30/17 23:59 97 Nasal Cannula 2.0 01/30/17 23:59 36.7 01/30/17 23:01 118 29 122/88 (104) 97 01/30/17 22:01 122 24 136/83 (100) 97 01/30/17 21:01 113 22 96/62 (81) 97 01/30/17 20:01 116 27 101/70 (82) 97 01/30/17 20:00 97 Nasal Cannula 2.0 01/30/17 20:00 36.6 01/30/17 19:40 118 22 116/70 (95) 95 01/30/17 19:31 118 23 96/63 (73) 97 01/30/17 19:16 119 26 94/63 (71) 97 01/30/17 19:01 119 25 93/65 (71) 97 01/30/17 17:45 125 22 97 01/30/17 17:31 125 26 100/69 (79) 97 01/30/17 17:30 125 25 97 01/30/17 17:16 125 22 108/57 (74) 97 01/30/17 17:15 125 23 97 01/30/17 17:01 127 23 112/67 (82) 97 01/30/17 17:00 127 22 97 12/15/17 16:46 127 22 105/74 (84) 97 12/15/17 16:45 128 20 97 12/15/17 16:31 128 22 112/65 (81) 97 12/15/17 16:30 127 21 97 12/15/17 16:16 130 30 112/74 (87) 97 /15/17 16:15 128 28 97 12/15/17 16:01 130 20 108/74 (85) 98 15/17 16:00 130 16 97 12/15/17 15:46 129 29 99/75 (83) 97 12/15/17 15:45 130 27 97 15/17 15:35 37.1 128 24 104/75 98 2.0 15/17 15:31 131 36 104/75 (85) 97 15/17 15:30 Room Air 2.0 15/17 15:30 130 28 97 15/17 15:15 130 24 98 15/17 15:01 130 21 105/68 (80) 98 15/17 15:00 129 22 97 15/17 14:46 131 21 101/72 (82) 98 15/17 14:45 130 19 97 15/17 14:31 131 19 96/76 (83) 98 15/17 14:30 131 22 98 15/17 14:30 37.1 132 23 102/61 98 2.0 15/17 14:16 131 18 102/61 (75) 97 15/17 14:15 131 22 97 15/17 14:02 37.0 130 22 96/78 97 15/17 14:01 130 22 96/78 (84) 98 15/17 14:00 132 24 97 15/17 13:46 132 24 90/64 (73) 98 15/17 13:45 130 25 98 15/17 13:41 36.4 129 22 90/59 97 15/17 13:31 131 17 90/59 (69) 98 15/17 13:30 131 17 98 15/17 13:16 131 20 97/61 (73) 98 15/17 13:15 132 24 98 15/17 13:09 37.2 132 22 97/59 99 01/30/17 13:01 131 26 97/58 (71) 98 01/30/17 13:00 131 19 98 01/30/17 12:15 131 17 99 01/30/17 12:09 37.0 130 22 89/58 99 01/30/17 12:01 131 29 89/58 (68) 98 01/30/17 12:00 131 25 99 01/30/17 12:00 37.1 130 22 89/56 (67) 98 Nasal Cannula 2.0 01/30/17 11:46 130 25 82/65 (71) 99 01/30/17 11:45 130 31 99 01/30/17 11:31 133 27 88/61 (70) 98 01/30/17 11:30 37.1 130 22 89/56 99 2.0 01/30/17 11:30 2.0 01/30/17 11:30 134 24 99 01/30/17 11:16 130 31 84/60 (68) 99 01/30/17 11:15 132 26 100 01/30/17 11:01 131 20 91/58 (69) 98 01/30/17 11:00 131 26 98 01/30/17 10:50 36.8 130 22 91/58 99 2.0 01/30/17 10:46 129 21 83/56 (65) 99 01/30/17 10:45 130 22 99 Laboratory Results: Last 24 Hours Test 01/30/17 11:52 01/30/17 11:53 01/30/17 17:05 01/30/17 18:37 Bedside Glucose (other) 137 mg/dl Lactic Acid Level 3.8 mmol/L Random Vancomycin Level 19.8 mcg/ml Bedside Glucose 208 mg/dl Hemoglobin 9.8 g/dL Hematocrit 30.8 % Test 01/30/17 21:00 01/31/17 04:45 01/31/17 05:35 Bedside Glucose 123 mg/dl 127 mg/dl White Blood Count 6.97 K/uL Red Blood Count 3.42 M/uL Hemoglobin 9.3 g/dL Hematocrit 29.8 % Mean Corpuscular Volume 87.1 fL Mean Corpuscular Hemoglobin 27.2 pg Mean Corpuscular Hemoglobin Concent 31.2 g/dl Platelet Count 96 K/uL Mean Platelet Volume 9.8 fL RDW Standard Deviation 55.0 fL RDW Coefficient of Variation 20.5 % Neutrophils % (Manual) 96.4 % Lymphocytes % (Manual) 0.9 % Monocytes % (Manual) 0.9 % Basophils % (Manual) 0.9 % Metamyelocytes % 0.9 % Neutrophils # (Manual) 6.72 K/uL Total Absolute Neutrophils 6.72 K/uL Lymphocytes # (Manual) 0.06 K/uL Total Absolute Lymphocytes 0.06 K/uL Monocytes # (Manual) 0.06 K/uL Basophils # (Manual) 0.06 K/uL Metamyelocytes # 0.06 K/uL Anisocytosis PRESENT Echinocytes 2+ Sodium Level 140 mmol/L Potassium Level 4.6 mmol/L Chloride Level 114 mmol/L Carbon Dioxide Level 17 mmol/L Anion Gap 9.0 mmol/L Blood Urea Nitrogen 35 mg/dl Creatinine 2.11 mg/dl Est Creatinine Clear Calc Drug Dose 29.2 ml/min Estimated GFR () 29.0 Estimated GFR (Non- 25.0 BUN/Creatinine Ratio 16.4 Random Glucose 138 mg/dl Lactic Acid Level 1.3 mmol/L Calcium Level 6.0 mg/dl Phosphorus Level 2.3 mg/dl Magnesium Level 1.8 mg/dl Procalcitonin 18.49 ng/ml Random Vancomycin Level 23.5 mcg/ml
[2017-01-31] MEDS: TRAMADOL HCL 50 MG TAB PO PRN (12:30)
[2017-01-31] MEDS: LORAZEPAM 0.5 MG TAB PO PRN (12:30)
[2017-01-31] MEDS: CEFEPIME IV 2,000 MG in SYRINGE 7.5 ML IV SCH (14:46)
[2017-01-31] MEDS ORDERED: LEVALBUTEROL/IPRATROPIUM NEB INH STA (20:21)
[2017-01-31] MEDS ORDERED: IPRATROPIUM BROMIDE NEB SOLN 0.02% 2.5 ML VIAL INH STA (20:24)
[2017-01-31] MEDS ORDERED: LEVALBUTEROL 1.25MG/0.5ML NEB INH STA (20:24)
[2017-01-31] MEDS ORDERED: LEVALBUTEROL/IPRATROPIUM NEB INH PRN (20:30)
[2017-01-31] MEDS ORDERED: IPRATROPIUM BROMIDE NEB SOLN 0.02% 2.5 ML VIAL INH PRN (20:30)
[2017-01-31] MEDS ORDERED: LEVALBUTEROL 1.25MG/0.5ML NEB INH PRN (20:30)
--- NOTE | 2017-01-31 20:53 | DIAGNOSTIC IMAGING REPORT ---
CHEST ONE VIEW PORTABLE HISTORY: Short of breath. COMPARISON: Chest 01/29/2017. FINDINGS: Right-sided Port-A-Cath terminates at the brachiocephalic/SVC junction. This remains unchanged. No pneumothorax. Low lung volumes. The heart remains mildly enlarged. Interval development of multifocal patchy airspace opacities. No pleural effusions. IMPRESSION: Interval development of multifocal patchy airspace opacities. This may represent pulmonary edema or a developing pneumonia. Electronically signed by: Iain Griggs M.D. 01/31/2017 8:51 PM Dictated Date/Time: 01/31/2017 8:50 PM
[2017-01-31] MEDS: SERTRALINE HCL 100 MG TAB PO SCH (20:54)
[2017-01-31] MEDS ORDERED: FUROSEMIDE INJ 60 MG in SYRINGE 0 ML IV ONE (21:00)
[2017-01-31 21:01] LABS: HEMATOCRIT 32.6 % (37-47); HEMOGLOBIN 10.3 g/dL (12.0-16.0); MEAN CELL VOLUME 86.9 fL (80-100); MEAN CORPUSCULAR HEMOGLOBIN 27.5 pg (25-34); MEAN CORPUSCULAR HGB CONC 31.6 g/dl (32-36); RED CELL DISTRIBUTION WIDTH CV 21.2 % (11.5-14.5); RED CELL DISTRIBUTION WIDTH SD 56.9 fL (36.4-46.3)
[2017-01-31 21:05] LABS: MEAN PLATELET VOLUME 9.6 fL (7.4-10.4); PLATELET COUNT 94 K/uL (130-400)
[2017-01-31 21:17] LABS: CALCIUM 6.4 mg/dl (8.5-10.1); CREATININE 2.22 mg/dl (0.60-1.20); POTASSIUM 4.5 mmol/L (3.5-5.1)
[2017-01-31 22:03] LABS: IG# 0.11 K/uL (0.00-0.02); LYMPH % 3.6 %; LYMPH ABS # 0.37 K/uL (1.2-3.4); MONO % 5.2 %; MONO ABS # 0.54 K/uL (0.11-0.59); NEUT % 90.1 %; NEUT ABS # 9.28 K/uL (1.4-6.5)
[2017-02-01] VITALS (39 sets, daily range): BP systolic 76–131; BP diastolic 54–94; PULSE 79–110; TEMP 36.4–37.4; O2SAT 90–100
[2017-02-01] MEDS ORDERED: IPRATROPIUM BROMIDE NEB SOLN 0.02% 2.5 ML VIAL INH SCH
--- NOTE | 2017-02-01 00:19 | Progress Note ---
Internal Med Progress Note Date of Service: Feb 01, 2017. Provider Documentation: Made aware by RN of worsening px hypoxemia, SOB symptoms, increasing respiratory distress. 90s on 10-15L Patient denies cough symptoms. CXR pulmonary edema versus bilateral pneumonia AP Hypoxemic respiratory failure secondary to fluid overload Supplemental O2 Baseline ABG May need BiPAP Stop maintenance IV fluid. Lasix Nebs when necessary. Will relay to AM provider. Vital Signs: Date Time Temp Pulse Resp B/P (MAP) Pulse Ox O2 Delivery O2 Flow Rate FiO2 02/01/17 08:10 91 20 131/85 (100) 93 BiPAP 02/01/17 04:12 98 BiPAP 65 02/01/17 03:25 36.7 108 24 121/78 (92) 100 BiPAP 02/01/17 01:09 110 23 100 BiPAP/CPAP 45 02/01/17 00:41 106 96 45 02/01/17 00:26 108 24 111/62 (78) 90 Oxymask 15.0 01/31/17 23:30 90 Oxymask 11.0 01/31/17 23:12 36.8 106 22 106/79 (88) 92 Free Flow/Blowby 10.0 01/31/17 20:38 112 20 91 Mask 8.0 01/31/17 20:30 91 Oxymask 8.0 01/31/17 20:15 36.8 119 25 124/83 (97) 91 Oxymask 8.0 01/31/17 19:36 36.6 120 24 125/99 (108) 97 Nasal Cannula 4.0 01/31/17 16:00 Nasal Cannula 2.0 01/31/17 15:17 36.8 116 20 121/90 (100) 91 Nasal Cannula 4.0 01/31/17 11:43 92 Nasal Cannula 2.0 01/31/17 11:30 36.9 118 30 90 01/31/17 11:15 113 22 91 01/31/17 11:12 36.7 113 30 92 2.0 01/31/17 11:02 114 24 102/85 (91) 93 01/31/17 11:00 116 29 92 01/31/17 10:45 117 26 93 01/31/17 10:30 113 30 92 01/31/17 10:30 113 30 92 01/31/17 10:15 114 28 94 01/31/17 10:00 121 24 95 01/31/17 09:45 117 24 92 01/31/17 09:30 117 21 01/31/17 09:15 115 24 01/31/17 09:01 110 19 125/82 (96) 93 Lab Results: Results Past 24 Hours Test 01/31/17 20:40 01/31/17 21:35 02/01/17 00:54 02/01/17 04:15 Range/Units White Blood Count 10.30 4.8-10.8 K/uL Red Blood Count 3.75 4.2-5.4 M/uL Hemoglobin 10.3 12.0-16.0 g/dL Hematocrit 32.6 37-47 % Mean Corpuscular Volume 86.9 80-100 fL Mean Corpuscular Hemoglobin 27.5 25-34 pg Mean Corpuscular Hemoglobin Concent 31.6 32-36 g/dl Platelet Count 94 130-400 K/uL Mean Platelet Volume 9.6 7.4-10.4 fL Neutrophils (%) (Auto) 90.1 % Lymphocytes (%) (Auto) 3.6 % Monocytes (%) (Auto) 5.2 % Eosinophils (%) (Auto) 0.0 % Basophils (%) (Auto) 0.0 % Neutrophils # (Auto) 9.28 1.4-6.5 K/uL Lymphocytes # (Auto) 0.37 1.2-3.4 K/uL Monocytes # (Auto) 0.54 0.11-0.59 K/uL Eosinophils # (Auto) 0.00 0-0.5 K/uL Basophils # (Auto) 0.00 0-0.2 K/uL RDW Standard Deviation 56.9 36.4-46.3 fL RDW Coefficient of Variation 21.2 11.5-14.5 % Immature Granulocyte % (Auto) 1.1 % Immature Granulocyte # (Auto) 0.11 0.00-0.02 K/uL Anisocytosis PRESENT Ovalocytes 1+ Echinocytes 1+ Activated Partial Thromboplast Time 38.0 21.0-31.0 SECONDS Partial Thromboplastin Ratio 1.5 Sodium Level 142 136-145 mmol/L Potassium Level 4.5 3.5-5.1 mmol/L Chloride Level 113 98-107 mmol/L Carbon Dioxide Level 18 21-32 mmol/L Anion Gap 11.0 3-11 mmol/L Blood Urea Nitrogen 36 7-18 mg/dl Creatinine 2.22 0.60-1.20 mg/dl Est Creatinine Clear Calc Drug Dose 28.3 ml/min Estimated GFR () 27.2 Estimated GFR (Non- 23.5 BUN/Creatinine Ratio 16.1 10-20 Random Glucose 130 70-99 mg/dl Calcium Level 6.4 8.5-10.1 mg/dl Magnesium Level 1.9 1.8-2.4 mg/dl Arterial Blood pH 7.38 7.34 7.35-7.45 Arterial Blood Partial Pressure CO2 32 35 35-46 mmHg Arterial Blood Partial Pressure O2 62 55 80-95 mm/Hg Arterial Blood HCO3 18 19 19-24 mmol/L Arterial Blood Oxygen Saturation 90.6 86.9 90-95 % Arterial Blood Base Excess -6.2 -6.4 -9-1.8 mEq/L Arterial Blood Gas Delivery 9L 45% Andrae Test POS POS POS Stool Occult Blood NEGATIVE NEGATIVE Test 02/01/17 05:35 Range/Units White Blood Count 8.56 4.8-10.8 K/uL Red Blood Count 3.63 4.2-5.4 M/uL Hemoglobin 10.1 12.0-16.0 g/dL Hematocrit 31.9 37-47 % Mean Corpuscular Volume 87.9 80-100 fL Mean Corpuscular Hemoglobin 27.8 25-34 pg Mean Corpuscular Hemoglobin Concent 31.7 32-36 g/dl Platelet Count 86 130-400 K/uL Mean Platelet Volume 10.3 7.4-10.4 fL Neutrophils (%) (Auto) 89.9 % Lymphocytes (%) (Auto) 2.5 % Monocytes (%) (Auto) 6.2 % Eosinophils (%) (Auto) 0.0 % Basophils (%) (Auto) 0.0 % Neutrophils # (Auto) 7.70 1.4-6.5 K/uL Lymphocytes # (Auto) 0.21 1.2-3.4 K/uL Monocytes # (Auto) 0.53 0.11-0.59 K/uL Eosinophils # (Auto) 0.00 0-0.5 K/uL Basophils # (Auto) 0.00 0-0.2 K/uL RDW Standard Deviation 59.3 36.4-46.3 fL RDW Coefficient of Variation 21.5 11.5-14.5 % Immature Granulocyte % (Auto) 1.4 % Immature Granulocyte # (Auto) 0.12 0.00-0.02 K/uL Platelet Estimate DECREASED Anisocytosis PRESENT Echinocytes 1+ Sodium Level 140 136-145 mmol/L Potassium Level 4.2 3.5-5.1 mmol/L Chloride Level 110 98-107 mmol/L Carbon Dioxide Level 21 21-32 mmol/L Anion Gap 9.0 3-11 mmol/L Blood Urea Nitrogen 40 7-18 mg/dl Creatinine 2.21 0.60-1.20 mg/dl Est Creatinine Clear Calc Drug Dose 28.9 ml/min Estimated GFR () 27.4 Estimated GFR (Non- 23.6 BUN/Creatinine Ratio 18.3 10-20 Random Glucose 177 70-99 mg/dl Calcium Level 6.5 8.5-10.1 mg/dl Total Bilirubin 0.6 0.2-1 mg/dl Aspartate Amino Transf (AST/SGOT) 20 15-37 U/L Alanine Aminotransferase (ALT/SGPT) 15 12-78 U/L Alkaline Phosphatase 136 45-117 U/L Total Protein 4.8 6.4-8.2 gm/dl Albumin 1.6 3.4-5.0 gm/dl Globulin 3.2 2.5-4.0 gm/dl Albumin/Globulin Ratio 0.5 0.9-2
[2017-02-01] MEDS ORDERED: METHYLPREDNISOLONE IV 20 MG in SYRINGE 0 ML IV STA (00:20)
[2017-02-01] MEDS ORDERED: FUROSEMIDE INJ 40 MG in SYRINGE 0 ML IV STA (00:20)
[2017-02-01] MEDS ORDERED: LEVALBUTEROL/IPRATROPIUM NEB INH STA (01:01)
[2017-02-01] MEDS ORDERED: IPRATROPIUM BROMIDE NEB SOLN 0.02% 2.5 ML VIAL INH STA (01:17)
[2017-02-01] MEDS ORDERED: LEVALBUTEROL 1.25MG/0.5ML NEB INH STA (01:17)
[2017-02-01] MEDS: CEFEPIME IV 2,000 MG in SYRINGE 7.5 ML IV SCH ×2 (02:09→15:29)
[2017-02-01] MEDS ORDERED: METOPROLOL TARTRATE 25 MG TAB PO ONE (03:49)
[2017-02-01] MEDS: LORAZEPAM 0.5 MG TAB PO PRN (04:12)
--- NOTE | 2017-02-01 06:08 | DIAGNOSTIC IMAGING REPORT ---
CHEST ONE VIEW PORTABLE CLINICAL HISTORY: 61 years-old Female presenting with low o2. TECHNIQUE: Portable upright AP view of the chest was obtained. COMPARISON: 01/31/2017. FINDINGS: Accessed right internal jugular Mediport, which terminates near the confluence of the right internal jugular vein and right subclavian vein. Atherosclerosis of aortic arch. Cardiac silhouette mildly enlarged, unchanged. Persistent patchy pulmonary opacities bilaterally stable to slightly decreased from prior. No large pleural effusion or pneumothorax. Mildly low lung volumes, unchanged. Osseous structures normal. Multiple external leads overlie the abdomen degrading image quality. IMPRESSION: 1. Stable to slightly decreased multifocal patchy pulmonary opacities laterally most concerning for pneumonia. Differential considerations include pulmonary edema or diffuse alveolar damage. 2. Mildly low lung volumes unchanged. Electronically signed by: Devaughn Ozuna M.D. 02/01/2017 6:07 AM Dictated Date/Time: 02/01/2017 6:05 AM
[2017-02-01 06:25] LABS: HEMATOCRIT 31.9 % (37-47); HEMOGLOBIN 10.1 g/dL (12.0-16.0); MEAN CELL VOLUME 87.9 fL (80-100); MEAN CORPUSCULAR HEMOGLOBIN 27.8 pg (25-34); MEAN CORPUSCULAR HGB CONC 31.7 g/dl (32-36); RED CELL DISTRIBUTION WIDTH CV 21.5 % (11.5-14.5); RED CELL DISTRIBUTION WIDTH SD 59.3 fL (36.4-46.3); WHITE BLOOD COUNT 8.56 K/uL (4.8-10.8)
[2017-02-01] MEDS: LEVOTHYROXINE 100 MCG TAB PO SCH (06:28)
[2017-02-01 06:50] LABS: IG# 0.12 K/uL (0.00-0.02); LYMPH % 2.5 %; LYMPH ABS # 0.21 K/uL (1.2-3.4); MEAN PLATELET VOLUME 10.3 fL (7.4-10.4); MONO % 6.2 %; MONO ABS # 0.53 K/uL (0.11-0.59); NEUT % 89.9 %; PLATELET COUNT 86 K/uL (130-400)
[2017-02-01 06:59] LABS: ALBUMIN 1.6 gm/dl (3.4-5.0); CALCIUM 6.5 mg/dl (8.5-10.1); CREATININE 2.21 mg/dl (0.60-1.20); POTASSIUM 4.2 mmol/L (3.5-5.1)
[2017-02-01 07:02] LABS: TOTAL PROTEIN 4.8 gm/dl (6.4-8.2)
[2017-02-01] MEDS ORDERED: VECURONIUM BROMIDE 10 MG VIAL IV ONE (07:29)
[2017-02-01] MEDS ORDERED: SODIUM CHLORIDE 0.9% 2.5 ML FLUSH IV ONE (07:29)
[2017-02-01] MEDS ORDERED: SUCCINYLCHOLINE CHLORIDE 20 MG/ML 10 ML VIAL IV ONE (07:29)
[2017-02-01] MEDS ORDERED: FENTANYL CITRATE INJ 50 MCG/1 ML 2 ML VIAL IV ONE (07:29)
[2017-02-01] MEDS ORDERED: ETOMIDATE 2 MG/ML 20 ML VIAL IV ONE (07:29)
[2017-02-01] MEDS ORDERED: SODIUM CHLORIDE 0.9% 10ML FLUSH IV ONE (07:29)
[2017-02-01] MEDS ORDERED: MIDAZOLAM HCL 5 MG/ML 2ML VIAL IV ONE (07:29)
[2017-02-01] MEDS: GABAPENTIN 100 MG CAP PO SCH ×3 (08:28→20:59)
[2017-02-01] MEDS: PANTOprazole SOD 40 MG TAB PO SCH (08:28)
[2017-02-01] MEDS: HEPARIN SOD 5000 UNIT/0.5 ML CARP SQ SCH ×2 (08:30→20:59)
--- NOTE | 2017-02-01 08:53 | DIAGNOSTIC IMAGING REPORT ---
CHEST ONE VIEW PORTABLE CLINICAL HISTORY: 61 years-old Female presenting with pulmonary edema, has received lasix, been on BIPAP, follow up. TECHNIQUE: Portable upright AP view of the chest was obtained. COMPARISON: 02/01/2017 at 12:36 AM. FINDINGS: Accessed right internal jugular central venous catheter terminates at the brachiocephalic confluence. Atherosclerosis of the aortic arch. Prominence of the cardiac silhouette unchanged. Multifocal patchy bilateral pulmonary opacities are increased from prior exam with greater obscuration of the left hemidiaphragm. Overall lung volumes are unchanged. Small left pleural effusion cannot be excluded. No pneumothorax. Osseous structures normal. Cholecystectomy clips noted. Multiple overlying external leads degrade evaluation of the upper abdomen. IMPRESSION: 1. Stable to slightly increased multifocal patchy pulmonary opacities, which could represent ulnar edema, multifocal pneumonia, or diffuse alveolar damage. 2. Cardiomegaly. Electronically signed by: Devaughn Ozuna M.D. 02/01/2017 8:52 AM Dictated Date/Time: 02/01/2017 8:49 AM
[2017-02-01] MEDS ORDERED: METOPROLOL SUCC 25MG EXT REL TAB PO SCH (09:00)
--- NOTE | 2017-02-01 10:43 | Progress Note ---
Internal Med Progress Note Date of Service: Feb 01, 2017. Provider Documentation: Subjective Overnight patient on BIPAP and received IV Lasix due to shortness of breath. As per patient's nurse this AM, patient urinated 2 liters from the Lasix. IV fluids held Physical Exam General: on BIPAP, able to speak in sentences on BIPAP, cooperate on exam Lungs: on BIPAP, lung sounds difficult to auscultate when BIPAP on, no audible wheezes Neurology: awake and alert Heart: Regular rate Abdomen: soft, nontender ASSESSMENT & PLAN: Labs/Imaging to date: 01/29/17 Urine: ESCHERICHIA COLI Target Route Dose RX AB Cost M.I.C. IQ ------ ----- ------ -- ------ -------- - ------ TRIMET/SULFA S <=2/38 AMPICILLIN R >16 AMPICILLIN/SUL R >16/8 CEFAZOLIN S <=8 CEFOXITIN S <=8 CEFOTAXIME S <=2 CEFTRIAXONE S <=1 CEFEPIME S <=4 CEFUROXIME S <=4 IMIPENEM S <=1 GENTAMICIN S <=4 TOBRAMYCIN S <=4 AMIKACIN S <=16 CIPROFLOXACIN S <=1 LEVOFLOXACIN S <=2 ERTAPENEM S <=1 NITROFURANTOIN S <=32 PIP/TAZO S <=16 01/29/17 Blood: ESCHERICHIA COLI Target Route Dose RX AB Cost M.I.C. IQ ------ ----- ------ -- ------ -------- - ------ TRIMET/SULFA S <=2/38 AMPICILLIN R >16 AMPICILLIN/SUL I 16/8 CEFAZOLIN S <=8 CEFOXITIN S <=8 CEFOTAXIME S <=2 CEFTRIAXONE S <=1 CEFEPIME S <=4 CEFUROXIME S <=4 IMIPENEM S <=1 GENTAMICIN S <=4 TOBRAMYCIN S <=4 AMIKACIN S <=16 CIPROFLOXACIN S <=1 LEVOFLOXACIN S <=2 ERTAPENEM S <=1 PIP/TAZO S <=16 01/30/17 CT abdomen when patient was in ICU 1. No urinary calculi or hydronephrosis. 2. Moderate right and mild left perinephric infiltration. While nonspecific, right-sided pyelonephritis could have this appearance. No renal abscess identified on unenhanced CT. 3. Fatty infiltration of the liver. 4. Stable biliary ductal dilatation which is likely related to prior cholecystectomy. 5. No bowel obstruction. Normal appendix. 01/30/17 Echocardiogram when patient was tachycardic in the ICU Sinus tachycardia, rate 130 bpm There is mild concentric left ventricular hypertrophy. Left ventricular systolic function is normal. No regional wall motion abnormalities noted. Ejection Fraction = 65-70%. There is no significant valvular disease A very small posterolateral loculated pericardial effusion is present CXR in the AM of 02/01/17 after Lasix treatment overnight and on BIPAP Accessed right internal jugular central venous catheter terminates at the brachiocephalic confluence. Atherosclerosis of the aortic arch. Prominence of the cardiac silhouette unchanged. Multifocal patchy bilateral pulmonary opacities are increased from prior exam with greater obscuration of the left hemidiaphragm. Overall lung volumes are unchanged. Small left pleural effusion cannot be excluded. No pneumothorax. Osseous structures normal. Cholecystectomy clips noted. Multiple overlying external leads degrade evaluation of the upper abdomen. IMPRESSION: 1. Stable to slightly increased multifocal patchy pulmonary opacities, which could represent ulnar edema, multifocal pneumonia, or diffuse alveolar damage. 2. Cardiomegaly. Assessment/Plan Infection Septic shock secondary to bacteremia of E.coli, acute pyelonephritis with UTI with E.coli Septic shock resolved continue Cefepime 2 gram IV daily for now s/p ICU stay, send urinalysis and blood culture to investigate whether E.coli bacteremia is still present Infectious Disease Consult requested for 02/02/17 Acetaminophen 650 mg q4 hours prn pain of fever Tachycardia from sepsis sepsis resolving, metoprolol 25 mg daily started on 02/01/17 which is half the dose of patient's outpatient dose Blood pressure, Hypotension from sepsis resolved IV fluids stopped overnight between 01/31/17 to 02/01/17 due to fluid overload of lungs hold home dose HCTZ for now as patient now receiving IV Lasix Multifocal patchy pulmonary opacities, which could represent ulnar edema, multifocal pneumonia, or diffuse alveolar damage continue IV Lasix, BIPAP, Antibiotic Hemoncology - pancytopenia likely due to side effects of chemotherapy endometrial cancer status post chemotherapy a month ago, postchemotherapy neutropenia, history of factor V Leiden deficiency. S/P 2 units of PRBC in the ICU on 01/31/17 S/P Neupogen in the ICU 5 mics per kilogram daily dose on 01/31/17 further hematology-oncology consult recommendations appreciated Acute kidney Injury IV fluids have been now held, trend GFR patient now receiving diuresis History of hypothyroidism continue Levothyroxine 100 mg daily History of diabetes? and hyperlipidemia monitor glucose GI Diarrhea possibly related to enteropathy, 01/30/17 C. Difficile negative NAUSEA: Prochlorperazine 5 mg q6h prn nausea CHRONIC BACK PAIN: Gabapentin 200 mg TID , Tramadol 50 mg PO q6h prn pain DEPRESSION/ANXIETY: uses SSRI, Ativan prn anxiety, trazodone HS prn insomnia DVT ppx SCD, Heparin subc q12 hours Vital Signs: Date Time Temp Pulse Resp B/P (MAP) Pulse Ox O2 Delivery O2 Flow Rate FiO2 02/01/17 08:10 91 20 131/85 (100) 93 BiPAP 02/01/17 08:00 BiPAP 65 02/01/17 04:12 98 BiPAP 65 02/01/17 03:25 36.7 108 24 121/78 (92) 100 BiPAP 02/01/17 01:09 110 23 100 BiPAP/CPAP 45 02/01/17 00:41 106 96 45 02/01/17 00:26 108 24 111/62 (78) 90 Oxymask 15.0 01/31/17 23:30 90 Oxymask 11.0 01/31/17 23:12 36.8 106 22 106/79 (88) 92 Free Flow/Blowby 10.0 01/31/17 20:38 112 20 91 Mask 8.0 01/31/17 20:30 91 Oxymask 8.0 01/31/17 20:15 36.8 119 25 124/83 (97) 91 Oxymask 8.0 01/31/17 19:36 36.6 120 24 125/99 (108) 97 Nasal Cannula 4.0 01/31/17 16:00 Nasal Cannula 2.0 01/31/17 15:17 36.8 116 20 121/90 (100) 91 Nasal Cannula 4.0 01/31/17 11:43 92 Nasal Cannula 2.0 01/31/17 11:30 36.9 118 30 90 01/31/17 11:15 113 22 91 01/31/17 11:12 36.7 113 30 92 2.0 01/31/17 11:02 114 24 102/85 (91) 93 01/31/17 11:00 116 29 92 Lab Results: Results Past 24 Hours Test 01/31/17 20:40 01/31/17 21:35 02/01/17 00:54 02/01/17 04:15 Range/Units White Blood Count 10.30 4.8-10.8 K/uL Red Blood Count 3.75 4.2-5.4 M/uL Hemoglobin 10.3 12.0-16.0 g/dL Hematocrit 32.6 37-47 % Mean Corpuscular Volume 86.9 80-100 fL Mean Corpuscular Hemoglobin 27.5 25-34 pg Mean Corpuscular Hemoglobin Concent 31.6 32-36 g/dl Platelet Count 94 130-400 K/uL Mean Platelet Volume 9.6 7.4-10.4 fL Neutrophils (%) (Auto) 90.1 % Lymphocytes (%) (Auto) 3.6 % Monocytes (%) (Auto) 5.2 % Eosinophils (%) (Auto) 0.0 % Basophils (%) (Auto) 0.0 % Neutrophils # (Auto) 9.28 1.4-6.5 K/uL Lymphocytes # (Auto) 0.37 1.2-3.4 K/uL Monocytes # (Auto) 0.54 0.11-0.59 K/uL Eosinophils # (Auto) 0.00 0-0.5 K/uL Basophils # (Auto) 0.00 0-0.2 K/uL RDW Standard Deviation 56.9 36.4-46.3 fL RDW Coefficient of Variation 21.2 11.5-14.5 % Immature Granulocyte % (Auto) 1.1 % Immature Granulocyte # (Auto) 0.11 0.00-0.02 K/uL Anisocytosis PRESENT Ovalocytes 1+ Echinocytes 1+ Activated Partial Thromboplast Time 38.0 21.0-31.0 SECONDS Partial Thromboplastin Ratio 1.5 Sodium Level 142 136-145 mmol/L Potassium Level 4.5 3.5-5.1 mmol/L Chloride Level 113 98-107 mmol/L Carbon Dioxide Level 18 21-32 mmol/L Anion Gap 11.0 3-11 mmol/L Blood Urea Nitrogen 36 7-18 mg/dl Creatinine 2.22 0.60-1.20 mg/dl Est Creatinine Clear Calc Drug Dose 28.3 ml/min Estimated GFR () 27.2 Estimated GFR (Non- 23.5 BUN/Creatinine Ratio 16.1 10-20 Random Glucose 130 70-99 mg/dl Calcium Level 6.4 8.5-10.1 mg/dl Magnesium Level 1.9 1.8-2.4 mg/dl Arterial Blood pH 7.38 7.34 7.35-7.45 Arterial Blood Partial Pressure CO2 32 35 35-46 mmHg Arterial Blood Partial Pressure O2 62 55 80-95 mm/Hg Arterial Blood HCO3 18 19 19-24 mmol/L Arterial Blood Oxygen Saturation 90.6 86.9 90-95 % Arterial Blood Base Excess -6.2 -6.4 -9-1.8 mEq/L Arterial Blood Gas Delivery 9L 45% Andrae Test POS POS POS Stool Occult Blood NEGATIVE NEGATIVE Test 02/01/17 05:35 Range/Units White Blood Count 8.56 4.8-10.8 K/uL Red Blood Count 3.63 4.2-5.4 M/uL Hemoglobin 10.1 12.0-16.0 g/dL Hematocrit 31.9 37-47 % Mean Corpuscular Volume 87.9 80-100 fL Mean Corpuscular Hemoglobin 27.8 25-34 pg Mean Corpuscular Hemoglobin Concent 31.7 32-36 g/dl Platelet Count 86 130-400 K/uL Mean Platelet Volume 10.3 7.4-10.4 fL Neutrophils (%) (Auto) 89.9 % Lymphocytes (%) (Auto) 2.5 % Monocytes (%) (Auto) 6.2 % Eosinophils (%) (Auto) 0.0 % Basophils (%) (Auto) 0.0 % Neutrophils # (Auto) 7.70 1.4-6.5 K/uL Lymphocytes # (Auto) 0.21 1.2-3.4 K/uL Monocytes # (Auto) 0.53 0.11-0.59 K/uL Eosinophils # (Auto) 0.00 0-0.5 K/uL Basophils # (Auto) 0.00 0-0.2 K/uL RDW Standard Deviation 59.3 36.4-46.3 fL RDW Coefficient of Variation 21.5 11.5-14.5 % Immature Granulocyte % (Auto) 1.4 % Immature Granulocyte # (Auto) 0.12 0.00-0.02 K/uL Platelet Estimate DECREASED Anisocytosis PRESENT Echinocytes 1+ Sodium Level 140 136-145 mmol/L Potassium Level 4.2 3.5-5.1 mmol/L Chloride Level 110 98-107 mmol/L Carbon Dioxide Level 21 21-32 mmol/L Anion Gap 9.0 3-11 mmol/L Blood Urea Nitrogen 40 7-18 mg/dl Creatinine 2.21 0.60-1.20 mg/dl Est Creatinine Clear Calc Drug Dose 28.9 ml/min Estimated GFR () 27.4 Estimated GFR (Non- 23.6 BUN/Creatinine Ratio 18.3 10-20 Random Glucose 177 70-99 mg/dl Calcium Level 6.5 8.5-10.1 mg/dl Total Bilirubin 0.6 0.2-1 mg/dl Aspartate Amino Transf (AST/SGOT) 20 15-37 U/L Alanine Aminotransferase (ALT/SGPT) 15 12-78 U/L Alkaline Phosphatase 136 45-117 U/L Total Protein 4.8 6.4-8.2 gm/dl Albumin 1.6 3.4-5.0 gm/dl Globulin 3.2 2.5-4.0 gm/dl Albumin/Globulin Ratio 0.5 0.9-2
[2017-02-01] MEDS ORDERED: NURSING VERBAL MED ORDER ONE ×2 (13:15→21:15)
[2017-02-01] MEDS: FUROSEMIDE INJ 40 MG in SYRINGE 0 ML IV SCH (13:22)
[2017-02-01] MEDS ORDERED: FUROSEMIDE INJ 40 MG in SYRINGE 0 ML IV ONE (14:15)
--- NOTE | 2017-02-01 15:18 | DIAGNOSTIC IMAGING REPORT ---
CHEST ONE VIEW PORTABLE CLINICAL HISTORY: 61 years-old Female presenting with left IJ CVL. TECHNIQUE: Portable upright AP view of the chest was obtained. COMPARISON: 02/01/2017 performed at 8:34 AM. FINDINGS: There has been interval placement of a left internal jugular central venous catheter which terminates in the right atrium. Right internal jugular Mediport terminates near the brachiocephalic confluence. Atherosclerosis of aortic arch. Cardiac silhouette remains moderately enlarged. Mildly low lung volumes. Stable to slight interval decrease in multifocal bilateral patchy pulmonary opacities. No large effusion. No pneumothorax. Osseous structures normal. Cholecystectomy clips noted. IMPRESSION: 1. Interval placement of a left internal jugular central venous catheter, which terminates in the right atrium. No pneumothorax. 2. Stable slight interval decrease in multifocal patchy bilateral pulmonary opacities. Electronically signed by: Devaughn Ozuna M.D. 02/01/2017 3:16 PM Dictated Date/Time: 02/01/2017 3:14 PM
--- NOTE | 2017-02-01 16:10 | Critical Care Progress Note ---
Critical Care Progress Note Date of Service Feb 01, 2017. Attending Dr. Anirudh Spring The patient is known to me from the past with a history of endometrial cancer status post chemotherapy a month ago presented to the hospital with Escherichia coli pansensitive gram-negative bacteremia. The patient did have right-sided acute pyelonephritis. The patient started on cefepime and continued on it. The patient was transferred to the regular floor after she did well 48 hours ago. Today the patient was noted to have increasing shortness of breath accompanied with tachypnea and hypoxia requiring BiPAP. I was called to the bedside to evaluate the patient. The patient was tachypneic having shortness of breath however she denies any pain except from heavy breathing. The patient denies any abdominal pain no nausea or vomiting reported no heartburn. No change in her bowel movement however she did have diarrhea for several days. The patient had slight increased swelling in her lower extremities and upper extremities. The rest of her review of system was unremarkable. I have performed an ultrasound at the bedside which revealed B line only consistent with pulmonary edema. Small pleural effusion on the right side. The right kidney appeared to be enlarged. Urine output after receiving first dose of Lasix was 2.1 L. However apparently the Port-A-Cath was leaking and we stopped using it any further. The patient was stressed with her that point to the ICU and was placed on 100% nonrebreather. And underwent a central line placement in the ICU which revealed a CVP of 10. Patient given another dose of Lasix as well. I have kept the patient on the BiPAP at her respiratory rate has gone down and currently in the range of 30. Objective Physical exam revealed stable vital signs, heart examination S1-S2 regular rate and rhythm, slightly tachycardic. Lungs with distant breath sounds bilaterally. Abdomen is benign nontender in the flank. She does have edema in the extremities. Current SOFA Score SOFA Score Response (Comments) Value PaO2/FiO2 (mmHg) < 400 1 SaO2 / FIO2 221 - 301 1 Platelets (x10) > 150 0 Bilirubin (mg/dL) < 1.2 0 [place] Coma Score 15 0 Level of Hypotension No Hypotension 0 Creatinine (mg/dL) 2.0 - 3.4 2 Total 4 Assessment & Plan I have reviewed her labs which revealed persistent metabolic acidosis. And the patient also had a chest x-ray which I reviewed myself revealing bilateral pulmonary vascular congestion consistent with pulmonary edema. Impression: #1 pulmonary edema, cardiogenic versus noncardiogenic. Which could be acute lung injury versus fluid overload as the patient was 11 L positive and currently she is only 7 L positive fluid balance for the past 2 days. #2 acute respiratory failure secondary to above. Also the patient had lack of bicarbonate which is not on an gap metabolic acidosis consistent with diarrhea and excessive amount of saline being administered. #3 sepsis with gram-negative bacteremia, Escherichia coli, pansensitive, on cefepime. #4 endometrial cancer status post chemotherapy 4 weeks ago. #5 acute kidney insufficiency on chronic kidney disease related to sepsis and intravascular depletion. #6 malnutrition with albumin level I.6. It is interfering with intravascular volume and causing third spacing. #7 I doubt cardiac event in this patient. Plan: #1 central line was placed for CVP. #2 I will monitor the CVP and keep it below the eights. #3 I would continue with the BiPAP and increase in delta to 16/8. And keep the FiO2 at 60% titratable down as tolerated. #4 I will obtain ABG. #5 I would administer a dose of Lasix 40 mg. The first dose was given through the Port-A-Cath that was leaking and I am not sure if it was delivered to the patient. #6 I will continue cefepime. No need to escalate antibiotics. The patient had no leukocytosis and minimal left shift and no bandemia. No fever also was reported. #7 the patient is at very high risk for venous thrombolic embolic event given her history of factor V Leiden deficiency and endometrial cancer. The patient was not placed on full dose of anti-coagulation due to thrombocytopenia which has been stable. The patient tolerated only DVT prophylaxis at this point. She is not on a full dose treatment. #8 if the ABG showed persistent metabolic acidosis that's non-compensating I would proceed with intubation. #9 I have started the patient on oral sodium bicarbonate to avoid volume introduction with the IV form of sodium bicarbonate. The dose I picked was 1300 mg by mouth 3 times daily. Hopefully it will compensate for loss of bicarbonate with diarrhea and hyperchloremia. #10 I will keep the patient nothing by mouth why she is on the BiPAP except for meds. #11 GI prophylaxis. #12 discussed with the family on multiple occasions in details. #13 discussed with the staff in details as well. #14 I have performed a bedside ultrasound which showed delroy B lines consistent with pulmonary edema rather than consolidation. Critical care time spent with the patient including reviewing the data was 60 minutes excluding procedure time. Consults & Procedures Consultants: Oncology Procedures: None Data Medications: Current Inpatient Medications Medications (Trade) Dose Ordered Sig/Alek Route Start Time Stop Time Status Last Admin Dose Admin Acetaminophen (Tylenol Tab) 650 mg Q4H PRN PO 01/29/17 12:15 02/28/17 12:14 01/31/17 09:28 650 MG Prochlorperazine Edisylate 5 mg/ Syringe 5 ml @ 5 mls/min Q6H PRN IV 01/29/17 13:00 02/28/17 12:59 Levothyroxine Sodium (Synthroid Tab) 100 mcg DAILYBB PO 01/30/17 06:00 03/01/17 05:59 02/01/17 06:28 100 MCG Lorazepam (Ativan Tab) 0.5 mg BID PRN PO 01/29/17 13:15 02/28/17 13:14 02/01/17 04:12 0.5 MG Pantoprazole Sodium (Protonix Tab) 40 mg QAM PO 01/30/17 09:00 03/01/17 08:59 02/01/17 08:28 40 MG Sertraline HCl (Zoloft Tab) 200 mg HS PO 01/29/17 21:00 02/28/17 20:59 01/31/17 20:54 200 MG Tramadol HCl (Ultram Tab) 50 mg Q6H PRN PO 01/29/17 13:15 02/28/17 13:14 01/31/17 12:30 50 MG Cefepime HCl (Consult) 1 ea DAILY PRN N/A 01/30/17 09:00 03/01/17 08:59 Gabapentin (Neurontin Cap) 200 mg TID PO 01/30/17 09:00 02/28/17 13:59 02/01/17 15:29 200 MG Heparin Sodium (Porcine) (Heparin Sq 5000 Unit/0.5ml) 5,000 unit Q12 SQ 01/30/17 21:00 03/01/17 20:59 02/01/17 08:30 5,000 UNIT Cefepime HCl 2000 mg/Syringe 20 ml @ 5 mls/min Q12H IV 01/31/17 14:00 02/14/17 13:59 02/01/17 15:29 5 MLS/MIN Ipratropium [place] (Atrovent 0.02% 0.5MG/2.5ML Neb) 0.5 mg Q4H PRN INH 01/31/17 20:30 18 20:29 02/01/17 01:09 0.5 MG Levalbuterol (Xopenex 1.25MG/ 0.5ML Neb) 1.25 mg Q4H PRN INH 01/31/17 20:30 03/02/17 20:29 02/01/17 01:09 1.25 MG Metoprolol Succinate (Toprol Xl Tab) 25 mg QAM PO 02/01/17 09:00 03/03/17 08:59 02/01/17 08:28 25 MG Furosemide 40 mg/ Syringe 4 ml @ 4 mls/min BID17 IV 02/01/17 17:00 03/03/17 16:59 02/01/17 13:22 4 MLS/MIN Sodium Bicarbonate (Sodium Bicarbonate Tab) 1,300 mg TID PO 02/01/17 21:00 03/03/17 20:59 Norepinephrine Bitartrate 8 mg/ Dextrose 508 ml @ 0 mls/hr Q0M PRN IV 02/01/17 15:13 03/03/17 15:12 I & O: 24-Hour Column 02/02/17 08:00 Output Total 1150 ml Balance -1150 ml Vital Signs: Date Time Temp Pulse Resp B/P (MAP) Pulse Ox O2 Delivery O2 Flow Rate FiO2 02/01/17 14:31 106 93 70 02/01/17 14:28 94 38 92 BiPAP/CPAP 70 02/01/17 13:09 89 96 60 02/01/17 12:00 BiPAP 65 02/01/17 11:57 36.4 86 20 108/83 (91) 96 BiPAP 02/01/17 08:10 91 20 131/85 (100) 93 BiPAP 02/01/17 08:00 BiPAP 65 02/01/17 04:12 98 BiPAP 65 02/01/17 03:25 36.7 108 24 121/78 (92) 100 BiPAP 02/01/17 01:09 110 23 100 BiPAP/CPAP 45 02/01/17 00:41 106 96 45 02/01/17 00:26 108 24 111/62 (78) 90 Oxymask 15.0 01/31/17 23:30 90 Oxymask 11.0 01/31/17 23:12 36.8 106 22 106/79 (88) 92 Free Flow/Blowby 10.0 01/31/17 20:38 112 20 91 Mask 8.0 01/31/17 20:30 91 Oxymask 8.0 01/31/17 20:15 36.8 119 25 124/83 (97) 91 Oxymask 8.0 01/31/17 19:36 36.6 120 24 125/99 (108) 97 Nasal Cannula 4.0 Laboratory Results: Last 24 Hours Test 01/31/17 20:40 01/31/17 21:35 02/01/17 00:54 02/01/17 04:15 White Blood Count 10.30 K/uL Red Blood Count 3.75 M/uL Hemoglobin 10.3 g/dL Hematocrit 32.6 % Mean Corpuscular Volume 86.9 fL Mean Corpuscular Hemoglobin 27.5 pg Mean Corpuscular Hemoglobin Concent 31.6 g/dl Platelet Count 94 K/uL Mean Platelet Volume 9.6 fL Neutrophils (%) (Auto) 90.1 % Lymphocytes (%) (Auto) 3.6 % Monocytes (%) (Auto) 5.2 % Eosinophils (%) (Auto) 0.0 % Basophils (%) (Auto) 0.0 % Neutrophils # (Auto) 9.28 K/uL Lymphocytes # (Auto) 0.37 K/uL Monocytes # (Auto) 0.54 K/uL Eosinophils # (Auto) 0.00 K/uL Basophils # (Auto) 0.00 K/uL RDW Standard Deviation 56.9 fL RDW Coefficient of Variation 21.2 % Immature Granulocyte % (Auto) 1.1 % Immature Granulocyte # (Auto) 0.11 K/uL Anisocytosis PRESENT Ovalocytes 1+ Echinocytes 1+ Activated Partial Thromboplast Time 38.0 SECONDS Partial Thromboplastin Ratio 1.5 Sodium Level 142 mmol/L Potassium Level 4.5 mmol/L Chloride Level 113 mmol/L Carbon Dioxide Level 18 mmol/L Anion Gap 11.0 mmol/L Blood Urea Nitrogen 36 mg/dl Creatinine 2.22 mg/dl Est Creatinine Clear Calc Drug Dose 28.3 ml/min Estimated GFR () 27.2 Estimated GFR (Non- 23.5 BUN/Creatinine Ratio 16.1 Random Glucose 130 mg/dl Calcium Level 6.4 mg/dl Magnesium Level 1.9 mg/dl Arterial Blood pH 7.38 7.34 Arterial Blood Partial Pressure CO2 32 mmHg 35 mmHg Arterial Blood Partial Pressure O2 62 mm/Hg 55 mm/Hg Arterial Blood HCO3 18 mmol/L 19 mmol/L Arterial Blood Oxygen Saturation 90.6 % 86.9 % Arterial Blood Base Excess -6.2 mEq/L -6.4 mEq/L Arterial Blood Gas Delivery 9L 45% Andrae Test POS POS Stool Occult Blood NEGATIVE Test 02/01/17 05:35 02/01/17 11:40 02/01/17 13:09 02/01/17 13:16 White Blood Count 8.56 K/uL Red Blood Count 3.63 M/uL Hemoglobin 10.1 g/dL Hematocrit 31.9 % Mean Corpuscular Volume 87.9 fL Mean Corpuscular Hemoglobin 27.8 pg Mean Corpuscular Hemoglobin Concent 31.7 g/dl Platelet Count 86 K/uL Mean Platelet Volume 10.3 fL Neutrophils (%) (Auto) 89.9 % Lymphocytes (%) (Auto) 2.5 % Monocytes (%) (Auto) 6.2 % Eosinophils (%) (Auto) 0.0 % Basophils (%) (Auto) 0.0 % Neutrophils # (Auto) 7.70 K/uL Lymphocytes # (Auto) 0.21 K/uL Monocytes # (Auto) 0.53 K/uL Eosinophils # (Auto) 0.00 K/uL Basophils # (Auto) 0.00 K/uL RDW Standard Deviation 59.3 fL RDW Coefficient of Variation 21.5 % Immature Granulocyte % (Auto) 1.4 % Immature Granulocyte # (Auto) 0.12 K/uL Platelet Estimate DECREASED Anisocytosis PRESENT Echinocytes 1+ Sodium Level 140 mmol/L Potassium Level 4.2 mmol/L Chloride Level 110 mmol/L Carbon Dioxide Level 21 mmol/L Anion Gap 9.0 mmol/L Blood Urea Nitrogen 40 mg/dl Creatinine 2.21 mg/dl Est Creatinine Clear Calc Drug Dose 28.9 ml/min Estimated GFR () 27.4 Estimated GFR (Non- 23.6 BUN/Creatinine Ratio 18.3 Random Glucose 177 mg/dl Calcium Level 6.5 mg/dl Total Bilirubin 0.6 mg/dl Aspartate Amino Transf (AST/SGOT) 20 U/L Alanine Aminotransferase (ALT/SGPT) 15 U/L Alkaline Phosphatase 136 U/L Total Protein 4.8 gm/dl Albumin 1.6 gm/dl Globulin 3.2 gm/dl Albumin/Globulin Ratio 0.5 Urine Color YELLOW Urine Appearance CLEAR Urine pH 5.0 Urine Specific [place] 1.015 Urine Protein NEG Urine Glucose (UA) NEG Urine Ketones NEG Urine Occult Blood 2+ Urine Nitrite NEG Urine Bilirubin NEG Urine Urobilinogen NEG Urine Leukocyte Esterase MODERATE Urine WBC (Auto) >30 /hpf Urine RBC (Auto) 10-30 /hpf Urine Hyaline Casts (Auto) 5-10 /lpf Urine Epithelial Cells (Auto) >30 /lpf Urine Bacteria (Auto) 1+ Urine Renal Epithelial Cells /lpf Urine Yeast (Auto) Test 02/01/17 15:33
--- NOTE | 2017-02-01 16:12 | Procedure Note ---
Procedure Note Procedure Date Feb 01, 2017. Procedure Description Procedure Name: Central line placement. Procedure time out: side/site verified, patient ID confirmed, correct procedure Consent obtained: written Performed by: attending Indications: diagnostic, therapeutic Contraindications: none Description: Indication for the central line was leaking Port-A-Cath in a patient who is oncologic patient postchemotherapy and a Port-A-Cath with poor IV access. Currently patient is in sepsis. Consent obtained from the patient, risk and benefits explained in details and the patient agreed to the procedure. I am aware of the thrombocytopenia the patient has. The patient was placed in supine position. Ultrasound was used and it was difficult to find a safe access on the right IJ. No attempt was done on that side and moved to the left IJ using ultrasound guidance, the skin was prepped with chlorhexidine, 2 attempts and using 5 mL 1% lidocaine injected topical, using a dilator but no scalpel, the line was placed to 20 cm and secured with 2 sutures and covered with surgical dressing, all ports were flushed with normal saline, chest x-ray was reviewed which showed the tip of the catheter at the right atrium, no evidence of arrhythmia, and no evidence of pneumothorax. Tolerated the procedure very well. No immediate competition. May use a line for CVP,blood draws and infusions. Complications: none Patient tolerated procedure: well
[2017-02-01] MEDS ORDERED: RAPID SEQUENCE INDUCTION BAG ONE (17:05)
[2017-02-01] MEDS ORDERED: FENTANYL CITRATE 1250MCG/250ML NSS ONE (17:33)
[2017-02-01] MEDS ORDERED: MIDAZOLAM 125MG/250ML D5W IV ONE (17:34)
--- NOTE | 2017-02-01 18:02 | Medical Consult ---
Consultation Date of Consultation: Feb 01, 2017. Attending Physician: Gray Rust M.D. Reason for Consultation: Antibiotic recommendations for E coli sepsis History of Present Illness 61-year-old female with known metastatic endometrial carcinoma, on chemotherapy , who was admitted last month with diarrhea and dehydration secondary to her chemotherapy, who was re-admitted to the hospital with several days of nausea, vomiting, worsening weakness, decreasing oral intake, with chills but no fever. She was found to have evidence pyelonephritis, and now blood in urine cultures are growing E coli. She was started on IV cefepime along with fluid resuscitation, the patient initially improved, but today developed progressively worsening shortness of breath and transferred back to the ICU for further management. Chest x-ray and ultrasound show evidence of fluid overload. Apart from her worsening shortness of breath, patient offers no new specific complaints. Past Medical/Surgical History Medical Problems: (1) Acute renal failure Status: Acute (2) Anemia Status: Acute (3) Femur fracture, left Status: Acute (4) Hypokalemia Status: Acute (5) Hypokalemia Status: Acute (6) Nausea vomiting and diarrhea Status: Acute Medical Problems: (1) B12 deficiency (2) Benign hypertension (3) Dehydration (4) Depression (5) Diabetes mellitus type 2 (6) Dyslipidemia (7) Electrolyte abnormality (8) Factor V Leiden mutation (9) Hypothyroidism (10) Localized, primary osteoarthritis of the lower leg (11) Nonulcer dyspepsia (12) Recurrent falls (13) Septic shock (14) Total replacement of hip (15) Urinary tract infection Surgical Problems: (1) History of bilateral knee arthroplasty (2) Hx of cholecystectomy (3) Hx of gastric bypass Family History Diabetes mellitus SISTER FH: CAD (coronary artery disease) MOTHER (MS) FH: cancer MOTHER (endometrial CA) SISTER (endometrial CA or ovarian CA) Social History Smoking Status: Never Smoker Smokeless Tobacco Use: No Alcohol Use: none Drug Use: none Marital Status: Occupation Status: disabled Allergies Coded Allergies: No Known Allergies (Verified , 01/29/17) Current Inpatient Medications Current Inpatient Medications Medications (Trade) Dose Ordered Sig/Alek Route Start Time Stop Time Status Last Admin Dose Admin Acetaminophen (Tylenol Tab) 650 mg Q4H PRN PO 01/29/17 12:15 02/28/17 12:14 01/31/17 09:28 650 MG Prochlorperazine Edisylate 5 mg/ Syringe 5 ml @ 5 mls/min Q6H PRN IV 01/29/17 13:00 02/28/17 12:59 Levothyroxine Sodium (Synthroid Tab) 100 mcg DAILYBB PO 01/30/17 06:00 03/01/17 05:59 02/01/17 06:28 100 MCG Lorazepam (Ativan Tab) 0.5 mg BID PRN PO 01/29/17 13:15 02/28/17 13:14 02/01/17 04:12 0.5 MG Sertraline HCl (Zoloft Tab) 200 mg HS PO 01/29/17 21:00 02/28/17 20:59 01/31/17 20:54 200 MG Tramadol HCl (Ultram Tab) 50 mg Q6H PRN PO 01/29/17 13:15 02/28/17 13:14 01/31/17 12:30 50 MG Cefepime HCl (Consult) 1 ea DAILY PRN N/A 01/30/17 09:00 03/01/17 08:59 Gabapentin (Neurontin Cap) 200 mg TID PO 01/30/17 09:00 02/28/17 13:59 02/01/17 15:29 200 MG Heparin Sodium (Porcine) (Heparin Sq 5000 Unit/0.5ml) 5,000 unit Q12 SQ 01/30/17 21:00 03/01/17 20:59 02/01/17 08:30 5,000 UNIT Cefepime HCl 2000 mg/Syringe 20 ml @ 5 mls/min Q12H IV 01/31/17 14:00 02/14/17 13:59 02/01/17 15:29 5 MLS/MIN Ipratropium Mcclellan (Atrovent 0.02% 0.5MG/2.5ML Neb) 0.5 mg Q4H PRN INH 01/31/17 20:30 03/02/17 20:29 02/01/17 01:09 0.5 MG Levalbuterol (Xopenex 1.25MG/ 0.5ML Neb) 1.25 mg Q4H PRN INH 01/31/17 20:30 03/02/17 20:29 02/01/17 01:09 1.25 MG Furosemide 40 mg/ Syringe 4 ml @ 4 mls/min BID17 IV 02/01/17 17:00 03/03/17 16:59 02/01/17 13:22 4 MLS/MIN Sodium Bicarbonate (Sodium Bicarbonate Tab) 1,300 mg TID PO 02/01/17 21:00 03/03/17 20:59 Norepinephrine Bitartrate 8 mg/ Dextrose 508 ml @ 0 mls/hr Q0M PRN IV 02/01/17 15:13 03/03/17 15:12 Pantoprazole Sodium (Protonix Tab) 40 mg BID PO 02/01/17 21:00 02/05/17 20:59 Review of Systems Constitutional: + weakness, + fatigue, No fever Eyes: No problem reported ENT: No problem reported Respiratory: + shortness of breath, + dyspnea at rest Cardiovascular: No problem reported Abdomen: + nausea, + vomiting, + diarrhea Musculoskeletal: No problem reported Genitourinary - Female: No problem reported Neurologic: No problem reported Psychiatric: No problem reported Endocrine: No problem reported Hematologic / Lymphatic: No problem reported Integumentary: No problem reported Allergic / Immunologic: No problem reported Physical Exam Date Time Temp Pulse Resp B/P (MAP) Pulse Ox O2 Delivery O2 Flow Rate FiO2 02/01/17 17:35 100 02/01/17 14:31 106 93 70 02/01/17 14:28 94 38 92 BiPAP/CPAP 70 02/01/17 13:09 89 96 60 02/01/17 12:00 BiPAP 65 02/01/17 11:57 36.4 86 20 108/83 (91) 96 BiPAP 02/01/17 08:10 91 20 131/85 (100) 93 BiPAP 02/01/17 08:00 BiPAP 65 02/01/17 04:12 98 BiPAP 65 02/01/17 03:25 36.7 108 24 121/78 (92) 100 BiPAP 02/01/17 01:09 110 23 100 BiPAP/CPAP 45 02/01/17 00:41 106 96 45 02/01/17 00:26 108 24 111/62 (78) 90 Oxymask 15.0 01/31/17 23:30 90 Oxymask 11.0 01/31/17 23:12 36.8 106 22 106/79 (88) 92 Free Flow/Blowby 10.0 01/31/17 20:38 112 20 91 Mask 8.0 01/31/17 20:30 91 Oxymask 8.0 01/31/17 20:15 36.8 119 25 124/83 (97) 91 Oxymask 8.0 01/31/17 19:36 36.6 120 24 125/99 (108) 97 Nasal Cannula 4.0 General Appearance: WD/WN, + mild distress Head: normocephalic, atraumatic, + pertinent finding Eyes: normal inspection, EOMI, sclerae normal ENT: normal ENT inspection, pharynx normal Neck: supple, no adenopathy, thyroid normal, + adenopathy present Respiratory/Chest: chest non-tender, + respiratory distress, + rales Cardiovascular: regular rate, rhythm, no gallop, no murmur, + tachycardia Abdomen/GI: normal bowel sounds, non tender, soft, no organomegaly Back: normal inspection, no CVA tenderness Extremities/Musculoskelatal: normal inspection, no calf tenderness, + swelling Neurologic/Psych: alert, oriented x 3 Skin: normal color, warm/dry, no rash Lymphatic: no adenopathy Laboratory Results Date/Time Source Procedure Growth Status 02/01/17 11:40 Urine,Catheterized Urine Culture Pending Received Last 24 Hours Test 01/31/17 20:40 01/31/17 21:35 02/01/17 00:54 02/01/17 04:15 White Blood Count 10.30 K/uL Red Blood Count 3.75 M/uL Hemoglobin 10.3 g/dL Hematocrit 32.6 % Mean Corpuscular Volume 86.9 fL Mean Corpuscular Hemoglobin 27.5 pg Mean Corpuscular Hemoglobin Concent 31.6 g/dl Platelet Count 94 K/uL Mean Platelet Volume 9.6 fL Neutrophils (%) (Auto) 90.1 % Lymphocytes (%) (Auto) 3.6 % Monocytes (%) (Auto) 5.2 % Eosinophils (%) (Auto) 0.0 % Basophils (%) (Auto) 0.0 % Neutrophils # (Auto) 9.28 K/uL Lymphocytes # (Auto) 0.37 K/uL Monocytes # (Auto) 0.54 K/uL Eosinophils # (Auto) 0.00 K/uL Basophils # (Auto) 0.00 K/uL RDW Standard Deviation 56.9 fL RDW Coefficient of Variation 21.2 % Immature Granulocyte % (Auto) 1.1 % Immature Granulocyte # (Auto) 0.11 K/uL Anisocytosis PRESENT Ovalocytes 1+ Echinocytes 1+ Activated Partial Thromboplast Time 38.0 SECONDS Partial Thromboplastin Ratio 1.5 Sodium Level 142 mmol/L Potassium Level 4.5 mmol/L Chloride Level 113 mmol/L Carbon Dioxide Level 18 mmol/L Anion Gap 11.0 mmol/L Blood Urea Nitrogen 36 mg/dl Creatinine 2.22 mg/dl Est Creatinine Clear Calc Drug Dose 28.3 ml/min Estimated GFR () 27.2 Estimated GFR (Non- 23.5 BUN/Creatinine Ratio 16.1 Random Glucose 130 mg/dl Calcium Level 6.4 mg/dl Magnesium Level 1.9 mg/dl Arterial Blood pH 7.38 7.34 Arterial Blood Partial Pressure CO2 32 mmHg 35 mmHg Arterial Blood Partial Pressure O2 62 mm/Hg 55 mm/Hg Arterial Blood HCO3 18 mmol/L 19 mmol/L Arterial Blood Oxygen Saturation 90.6 % 86.9 % Arterial Blood Base Excess -6.2 mEq/L -6.4 mEq/L Arterial Blood Gas Delivery 9L 45% Andrae Test POS POS Stool Occult Blood NEGATIVE Test 02/01/17 05:35 02/01/17 11:40 02/01/17 13:09 02/01/17 13:16 White Blood Count 8.56 K/uL Red Blood Count 3.63 M/uL Hemoglobin 10.1 g/dL Hematocrit 31.9 % Mean Corpuscular Volume 87.9 fL Mean Corpuscular Hemoglobin 27.8 pg Mean Corpuscular Hemoglobin Concent 31.7 g/dl Platelet Count 86 K/uL Mean Platelet Volume 10.3 fL Neutrophils (%) (Auto) 89.9 % Lymphocytes (%) (Auto) 2.5 % Monocytes (%) (Auto) 6.2 % Eosinophils (%) (Auto) 0.0 % Basophils (%) (Auto) 0.0 % Neutrophils # (Auto) 7.70 K/uL Lymphocytes # (Auto) 0.21 K/uL Monocytes # (Auto) 0.53 K/uL Eosinophils # (Auto) 0.00 K/uL Basophils # (Auto) 0.00 K/uL RDW Standard Deviation 59.3 fL RDW Coefficient of Variation 21.5 % Immature Granulocyte % (Auto) 1.4 % Immature Granulocyte # (Auto) 0.12 K/uL Platelet Estimate DECREASED Anisocytosis PRESENT Echinocytes 1+ Sodium Level 140 mmol/L Potassium Level 4.2 mmol/L Chloride Level 110 mmol/L Carbon Dioxide Level 21 mmol/L Anion Gap 9.0 mmol/L Blood Urea Nitrogen 40 mg/dl Creatinine 2.21 mg/dl Est Creatinine Clear Calc Drug Dose 28.9 ml/min Estimated GFR () 27.4 Estimated GFR (Non- 23.6 BUN/Creatinine Ratio 18.3 Random Glucose 177 mg/dl Calcium Level 6.5 mg/dl Total Bilirubin 0.6 mg/dl Aspartate Amino Transf (AST/SGOT) 20 U/L Alanine Aminotransferase (ALT/SGPT) 15 U/L Alkaline Phosphatase 136 U/L Total Protein 4.8 gm/dl Albumin 1.6 gm/dl Globulin 3.2 gm/dl Albumin/Globulin Ratio 0.5 Urine Color YELLOW Urine Appearance CLEAR Urine pH 5.0 Urine Specific [place] 1.015 Urine Protein NEG Urine Glucose (UA) NEG Urine Ketones NEG Urine Occult Blood 2+ Urine Nitrite NEG Urine Bilirubin NEG Urine Urobilinogen NEG Urine Leukocyte Esterase MODERATE Urine WBC (Auto) >30 /hpf Urine RBC (Auto) 10-30 /hpf Urine Hyaline Casts (Auto) 5-10 /lpf Urine Epithelial Cells (Auto) >30 /lpf Urine Bacteria (Auto) 1+ Urine Renal Epithelial Cells /lpf Urine Yeast (Auto) Test 02/01/17 15:33 02/01/17 16:47 Lactic Acid Level 1.3 mmol/L Pro-B-Type Natriuretic Peptide > 93390 pg/ml Blood Gas Sample Site R Radial Bedside Blood Gas pH (LAB) 7.35 Bedside Blood Gas pCO2 (LAB) 37 mmHg Bedside Blood Gas pO2 (LAB) 74 mmHg Bedside Blood Gas HCO3 (LAB) 21 meq/L Bedside Blood Gas Total CO2 22 mEq/l Bedside Blood Gas Base Excess (LAB) -5.0 meq/L Bedside Blood Gas O2 Saturation 94.0 % Andrae Test Pass Oxygen Delivery Device BIPAP Bedside Oxygen Rate (breaths/min) 14 Bedside FiO2 70 % Blood Gas IPAP 16 Patient Name: TACOS AGUILERA Unit Number: [id number] Dictated: 02/01/171513 Transcribed: 12/17/17 1514 PBS Printed Date/Time: [~ rep prt dt]/[~ rep prt tm] [~ rep ct labl] - [~ rep ct ivnm] [facility] [place] [address] Dictated: 02/01/171513 Transcribed: 02/01/171513 PBS Printed Date/Time: [~ rep prt dt]/[~ rep prt tm] [~ rep ct labl] - [~ rep ct ivnm] [~ rep ct add3]] CHEST ONE VIEW PORTABLE CLINICAL HISTORY: 61 years-old Female presenting with left IJ CVL. TECHNIQUE: Portable upright AP view of the chest was obtained. COMPARISON: 02/01/2017 performed at 8:34 AM. FINDINGS: There has been interval placement of a left internal jugular central venous catheter which terminates in the right atrium. Right internal jugular Mediport terminates near the brachiocephalic confluence. Atherosclerosis of aortic arch. Cardiac silhouette remains moderately enlarged. Mildly low lung volumes. Stable to slight interval decrease in multifocal bilateral patchy pulmonary opacities. No large effusion. No pneumothorax. Osseous structures normal. Cholecystectomy clips noted. IMPRESSION: 1. Interval placement of a left internal jugular central venous catheter, which terminates in the right atrium. No pneumothorax. 2. Stable slight interval decrease in multifocal patchy bilateral pulmonary opacities. Electronically signed by: Devaughn Ozuna M.D. 02/01/2017 3:16 PM Dictated Date/Time: 02/01/2017 3:14 PM The status of this report is Signed. Draft = Not yet reviewed or approved by Radiologist. Signed = Reviewed and approved by Radiologist. <AttendingPhy>Gray Rust M.D.</AttendingPhy> <FamilyPhy>Pablo Holland D.O.</FamilyPhy> <PrimaryPhy>Pablo Holland D.O.</PrimaryPhy> <UnitNumber> [id number]</UnitNumber> <VisitNumber>[id number]</VisitNumber> <PatientName> TACOS AGUILERA</PatientName> <DateOfBirth>1955</DateOfBirth> <Location> C.MSICU</Location> <ServiceDate>01/29/17</ServiceDate> <MNE>ESINDI</MNE> < OrderingPhy>Hawk Oleary MD</OrderingPhy> <OrderingPhyMNE>f rep ord dr powers</ OrderingPhyMNE> <DictatingPhyMNE>f rep dict dr powers</DictatingPhyMNE> <CCListMNE> f rep ct mne</CCListMNE> <AdmittingPhyMNE>f pt admit dr powers</AdmittingPhyMNE> < AttendingPhyMNE>f pt attend dr powers</AttendingPhyMNE> <ConsultingPhyMNE>f pt consult dr powers</ConsultingPhyMNE> <FamilyPhyMNE>f pt fam dr powers</FamilyPhyMNE> <OtherPhyMNE>f pt other dr powers</OtherPhyMNE> < PrimaryPhyMNE>f pt prim care dr powers</PrimaryPhyMNE> <ReferringPhyMNE>f pt referring dr powers</ReferringPhyMNE> Assessment & Plan 61-year-old female with E coli sepsis, with evidence of pyelonephritis. Isolate is pansensitive, so patient can be treated with IV ceftriaxone with length of IV antibiotics to be determined by clinical response.. Case discussed with Dr. Rust. Will follow.
[2017-02-01] MEDS: NOREPINEPHRINE BIT INJ 8 MG in DEXTROSE 5% 500ML 500 ML IV PRN (18:05)
--- NOTE | 2017-02-01 18:51 | Procedure Note ---
Procedure Note Procedure Date Feb 01, 2017. Procedure Description Procedure Name: Intubation Procedure time out: side/site verified, patient ID confirmed, correct procedure Consent obtained: written Performed by: attending Indications: therapeutic Contraindications: none Description: Intubation is needed for ARDS, the patient isn't in acute respiratory failure failing the BiPAP, discussed with her in details, agreed as she started getting tired from breathing, her PO2 was 75 on 70%. The patient was given 50 mics of fentanyl, 12 mg of etomidate, 80 mg of succinyl choline. The patient was placed in supine position. O2 sat saturation was noted to be between 88-92% with Ambu bag pink, oral airway was used, glides scope was used, motor code were visualized, related to #8 was placed to 21 cm by the lips, balloon was inflated and end-tidal CO2 was yellow, equal breath sounds, the tube was secured at 21 cm by the lips, chest x-rays pending. OG tube also was placed at the same time to the left lateral position of the ET tube to 60 cm, confirmed with a bubble auscultation, and placed to suction. Dimension, the patient was Ambu bag for at least 2 minutes prior to attempting intubation. Also noted the patient does have multiple missing teeth. We'll review the chest x-ray. Complications: none Patient tolerated procedure: well
--- NOTE | 2017-02-01 18:53 | Procedure Note ---
Procedure Note Procedure Date Feb 01, 2017. Procedure Description Procedure Name: A line was attempted on both sides using ultrasound, the wire was able to thread but the artery dissection size is smaller than any cardiac catheter used. Unable to thread the catheter whatsoever. No further attempts were attempted. The patient was intubated earlier. The A-line was needed emergently for blood pressure control as her blood pressure was in the range of 70 systolic and currently is 83 systolic. We will had was started as well. Family were notified about the events. There are coming to see her. medication from the attempts.
--- NOTE | 2017-02-01 19:16 | DIAGNOSTIC IMAGING REPORT ---
CHEST ONE VIEW PORTABLE CLINICAL HISTORY: 61 years-old Female presenting with intubation. OGT. TECHNIQUE: Portable upright AP view of the chest was obtained. COMPARISON: 02/01/2017 at 3:01 PM. FINDINGS: Interval intubation with the endotracheal tube 1.8 cm from the gracy. The right internal jugular Mediport remains in place. The left internal jugular central venous catheter again terminates in the right atrium. Interval placement of a nasogastric tube which descends below the diaphragm. Multiple overlying external leads degrade image quality. Atherosclerosis of aortic arch. Cardiac silhouette remains enlarged. Multifocal patchy bilateral pulmonary opacities not significantly changed from prior. No large effusion or pneumothorax. Osseous structures normal. Cholecystectomy clips. IMPRESSION: 1. The endotracheal tube is 1.8 cm from the gracy. Left IJ catheter in the right atrium. Nasogastric tube in the stomach. 2. Cardiomegaly. 3. Persistent patchy bilateral pulmonary opacities, either multifocal pneumonia, pulmonary edema, or or diffuse alveolar damage. Electronically signed by: Devaughn Ozuna M.D. 02/01/2017 7:14 PM Dictated Date/Time: 02/01/2017 7:12 PM
[2017-02-01] MEDS: SODIUM BICARBONATE 650 MG TAB PO SCH (20:59)
[2017-02-01] MEDS: SERTRALINE HCL 100 MG TAB PO SCH (20:59)
[2017-02-01] MEDS ORDERED: LEVALBUTEROL 1.25MG/0.5ML NEB INH SCH (21:00)
[2017-02-01] MEDS ORDERED: PANTOprazole SOD 40 MG TAB PO SCH (21:00)
[2017-02-01] MEDS ORDERED: METOPROLOL TARTRATE 25 MG TAB PO SCH (21:00)
[2017-02-01] MEDS: IPRATROPIUM BROMIDE HFA INHALER INH SCH (21:05)
[2017-02-01] MEDS: LEValbuterol HFA 15GM INHALER INH SCH (21:05)
[2017-02-01] MEDS: PANTOprazole INJ 40 MG in SYRINGE 0 ML IV SCH (21:09)
[2017-02-01] MEDS: SODIUM CHLORIDE 0.9% 1000ML 1,000 ML IV SCH (21:45)
[2017-02-02] VITALS (61 sets, daily range): BP systolic 76–119; BP diastolic 44–77; PULSE 72–90; TEMP 36.8–38; O2SAT 93–100
[2017-02-02] MEDS: CEFEPIME IV 2,000 MG in SYRINGE 7.5 ML IV SCH ×2 (01:19→13:53)
[2017-02-02] MEDS: IPRATROPIUM BROMIDE HFA INHALER INH SCH ×4 (02:19→20:51)
[2017-02-02] MEDS: LEValbuterol HFA 15GM INHALER INH SCH ×4 (02:19→20:51)
[2017-02-02 05:21] LABS: HEMATOCRIT 31.3 % (37-47); HEMOGLOBIN 10.3 g/dL (12.0-16.0); MEAN CELL VOLUME 85.8 fL (80-100); MEAN CORPUSCULAR HEMOGLOBIN 28.2 pg (25-34); MEAN CORPUSCULAR HGB CONC 32.9 g/dl (32-36); MEAN PLATELET VOLUME 10.8 fL (7.4-10.4); NUCLEATED RED BLOOD CELL ABS 0.03 K/uL (0-0); PLATELET COUNT 107 K/uL (130-400); RED CELL DISTRIBUTION WIDTH CV 21.4 % (11.5-14.5); RED CELL DISTRIBUTION WIDTH SD 57.8 fL (36.4-46.3); WHITE BLOOD COUNT 14.03 K/uL (4.8-10.8)
[2017-02-02 05:47] LABS: ALBUMIN 1.5 gm/dl (3.4-5.0); CALCIUM 7.2 mg/dl (8.5-10.1); CREATININE 2.04 mg/dl (0.60-1.20); POTASSIUM 3.5 mmol/L (3.5-5.1)
[2017-02-02 05:55] LABS: BASO % 0.1 %; BASO ABS # 0.01 K/uL (0-0.2); EOS % 0.1 %; EOS ABS # 0.01 K/uL (0-0.5); IG# 0.37 K/uL (0.00-0.02); LYMPH % 5.1 %; LYMPH ABS # 0.71 K/uL (1.2-3.4); MONO % 5.3 %; MONO ABS # 0.75 K/uL (0.11-0.59); NEUT % 86.8 %; NEUT ABS # 12.18 K/uL (1.4-6.5)
[2017-02-02 05:59] LABS: TOTAL PROTEIN 4.9 gm/dl (6.4-8.2)
[2017-02-02] MEDS: LEVOTHYROXINE 100 MCG TAB PO SCH (06:38)
[2017-02-02] MEDS ORDERED: HEPARIN IV LOW DOSE NO BOLUS SCH (08:36)
--- NOTE | 2017-02-02 08:55 | DIAGNOSTIC IMAGING REPORT ---
CHEST ONE VIEW PORTABLE CLINICAL HISTORY: Respiratory failure COMPARISON STUDY: 02/01/2017 FINDINGS: There is an endotracheal tube 23 mm above the gracy. There is a nasogastric tube which passes into the stomach. There is a left internal jugular central venous catheter, the tip of which extends into the right atrium. There is a right internal jugular A-Port catheter, the tip of which terminates at the level of the subclavian right internal jugular confluence. The heart is mildly enlarged. There are improving bilateral interstitial opacities.[ IMPRESSION: Slight improvement in the bilateral interstitial pulmonary opacities. Electronically signed by: César Huizar M.D. 02/02/2017 8:54 AM Dictated Date/Time: 02/02/2017 8:52 AM
[2017-02-02] MEDS: PANTOprazole INJ 40 MG in SYRINGE 0 ML IV SCH ×2 (09:23→20:47)
[2017-02-02] MEDS: GABAPENTIN 100 MG CAP PO SCH ×3 (09:23→20:48)
[2017-02-02] MEDS: SODIUM BICARBONATE 650 MG TAB PO SCH ×3 (09:23→20:48)
[2017-02-02] MEDS: CHLORHEXIDINE GLUCONATE 0.12% 480 ML MT SCH (09:24)
[2017-02-02] MEDS: HEPARIN 25,000 UNIT/500ML D5W 500 ML IV PRN (09:55)
--- NOTE | 2017-02-02 09:56 | ECHOCARDIOGRAM REPORT ---
*NOTICE TO RECEIVING CONSTITUTION PARTY AGENCY This information is strictly Confidential and protected under [place] law. [place] law prohibits you from making any further disclosure of this information unless further disclosure is expressly permitted by the written consent of the person to whom it pertains or is authorized by law. A general authorization for the release of medical or other information is not sufficient for this purpose. Hospital accepts no responsibility if the information is made available to any other person, INCLUDING THE PATIENT. Interpretation Summary * Name: TACOS AGUILERA Study Date: 02/02/2017 08:57 AM BP: 84/60 mmHg * Patient Location: .MSICU\S\E106\S\1 HR: 82 * : 1955 (M/d/yyyy) Gender: Female Height: 60 in * Age: 61 yrs Ethnicity: [place] Weight: 209 lb * Ordering Physician: Deion Lugo * Referring Physician: Self, Referred * Performed By: Jenise Cordova RDCS * * Reason For Study: Acute decompensation, possible right heart failure * BSA: 1.9 m2 * -- Conclusions -- * Limited study performed. * Compared to previous study of 01/30/17: LV and RV function now severely reduced. * Mildly dilated LV chamber size with mild concentric LVH. * Severely reduced LV systolic function with severe global hypokinesis, EF 25-30%. * Mildly dilated RV chamber. Moderate to severe right ventricular hypokinesis is present that spares the right ventricular apex. Procedure Details * A two-dimensional transthoracic echocardiogram was performed. * The study was technically difficult. * There were technical limitations due to patient'ssupine positioning while on mechanical ventilation MMode 2D Measurements and Calculations IVSd 1.0 cm LVIDd 4.3 cm LVIDs 3.6 cm LVPWd 0.99 cm IVS/LVPW 1.0 FS 15.5 % EDV(Teich) 82.7 ml ESV(Teich) 55.4 ml EF(Teich) 33.0 % EDV(cubed) 79.1 ml ESV(cubed) 47.7 ml EF(cubed) 39.7 % LV mass(C)d 143.7 grams LV mass(C)dI 75.6 grams/m\S\2 SV(Teich) 27.3 ml SI(Teich) 14.4 ml/m\S\2 SV(cubed) 31.4 ml SI(cubed) 16.5 ml/m\S\2 LA dimension 2.2 cm Doppler Measurements and Calculations TR max janet 108.6 cm/sec
[2017-02-02] MEDS ORDERED: NURSING VERBAL MED ORDER ONE ×3 (10:00→19:30)
--- NOTE | 2017-02-02 10:26 | Progress Note ---
Progress Note Date of Service Feb 02, 2017. Progress Note Internal medicine hospitalist note Subjective/Objective Since patient was transferred from the telemetry [facility] to the ICU on 02/01/17, patient has been intubated Physical Exam: General: intubated, sedated Lung: on mechanical ventilator Heart: regular rate Abdomen: soft. + bowel sounds Extremities: lower extremity pulses palpable I have spoken with the ICU physician today. At his request, I have done further chart review of patient's malignancy history in regards to staging history. Patient's family at bedside in ICU informed me that the patient has been following Dr. García in the care of patient's cancer and only had 1 session of chemotherapy to date. The family member's report that the infusion port was placed around 1 and a half month ago Below is the Progress note of Dr. García as per outpatient records from November 2016 "Emily Elaine is a 61 year female, a case of endometrial carcinoma, clear cell variant diagnosed the recently, she has come the clinic for initial evaluation, recently she was also seen by [employer] oncologist Dr. Soriano. Because of persistent abdominal wall surgical drainage wound which is going on for the last 10 years, decided not to proceed with the current the surgery at this time. She has come the clinic, accompanied by her and daughter in the office. I reviewed her medical records. She says that she entered menopause somewhere about 10 years back but after that she started having intermittent the postmenopausal vaginal bleeding. She was seen by cell assembly pinner, she declined for D&C for the last few years. She continued to have postmenopausal bleeding, she was seen by cell assembly p[employer] Dr. 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 - CT scan of the chest, abdomen and pelvis done on 11/26/2016 showed uterine mass which is comfortable the primary tumor, no intra-abdominal or pelvic lymphadenopathy, no suspicious findings noted in the chest or anywhere else. DJD in the spine noted. CA 125 level --> 95 (11/28/2006) She had a gastric bypass surgery earlier in 2006 at [facility], postoperatively she had a wound infection and mild nutrition, she required gastrostomy feeding tube for about few months, she has nonhealing surgical wound since then for the last 10 years, she was seen in the wound clinic in [place], presently she is not on antibiotic treatment, few years back she underwent the abdominal wall hernia repair surgery, she also had a left leg DVT when she underwent the gastric bypass surgery, received Coumadin for about 1 month duration, earlier blood workup done 2013 showed positive result for heterozygous status for Factor V Leiden mutation, she did not have any thrombotic complications after that, presently she is not on any anticoagulant treatment. REVIEW OF SYSTEMS: Constitutional: no weight loss, generalized weakness and fatigue present,, no fever. Head: No new headache, some mild dizziness present. Eyes: no recent change in the vision, no diplopia ENT: Some impaired hearing present, no earache.No epistaxis, No nasal discharge or stuffiness Resp: No cough, No increasing shortness of breath, no hemoptysis, no chest pain , No wheezing. Cardiac: no anginal chest pain, no dyspnea on exertion and no edema GI: Pelvic discomfort present, she takes NSAID for the symptomatic treatment, no heartburn, no diarrhea, no constipation, no blood/melena, no nausea, no vomiting Musculoskeletal: no significant joint or muscle pain or swelling at this time, she had bilateral knee joint replacement surgery, had a surgery on the left hip x2 in the past. She takes Neurontin for the symptomatic treatment of joint pain. : no nocturia and no frequency, no hematuria. Urged incontinence present. Neuro: Some memory changes noted, no focal weakness, no falling, no numbness or tingling and no vertigo Psych: Spirits good. Depression present, she is on Zoloft, anxiety present, she is not on any anxiety medication at this time but she is requesting for some anxiety medication, No psychosis Heme: No bleeding, no swollen nodes Endo: no thyroid disease; Skin: No rash, no itching. no bruising. Legs: no leg edema. Current weight --> 193 lb Other important the medical history: -history of gastric bypass surgery in 2006 at [facility]. -persistent the abdominal wall wound with some slight discharge since the gastric bypass surgery. She says that she was seen in the wound clinic in [place], presently she is not on any antibiotic treatment. -Vitamin B12 deficiency, she is on Vitamin B12 replacement therapy (injection) every 3 monthly at [facility]. -DJD, she had bilateral knee joint replacement surgery and the left hip surgery x2, she is on Neurontin for the symptomatic treatment. -hypothyroidism. -Factor V Leiden mutation was noted 1st time in 2013. She says that she had blood clot involving the left groin earlier when she underwent the gastric bypass surgery, she received oral Coumadin treatment for about 1 month at that time. Presently she is not on any anticoagulant treatment. -osteoporosis, she is on Fosamax therapy. - She had 3 in the past. -she had open cholecystectomy. -abdominal wall hernia repair 4 to 5 years back at [facility]. - brain atrophy which is somewhat disproportionate to the her age noted in the brain MRI" Assessment and Plan for this re-admission to the ICU This is a patient initially admitted to the hospital on 01/29/17 for with dehydration, nausea/vomiting, weakness and was then sent to the Intensive Care unit for treatment of septic shock. The sepsis was secondary to E.coli, acute pyelonephritis with UTI with E.coli.in a patient who was initially pancytopenic likely due to side effects of chemotherapy (endometrial cancer status post chemotherapy a month ago) S/P 2 units of PRBC in the ICU on 01/31/17 S/P Neupogen in the ICU 5 mics per kilogram daily dose on 01/31/17 Patient was then transferred to telemetry [facility] with Cefepime IV antibiotic active on 01/31/17. Overnight patient's oxygen demands required being placed on BIPAP Subsequently on 02/01/17 patient developed acute respiratory failure while on BIPAP with IV Lasix and transferred to the ICU for which patient was intubated. Differentials on respiratory failure includes pulmonary edema secondary to fluid overload from IV fluids which was initially given for initial management of sepsis vs ARDS. Appreciate further ICU management of pulmonary status while intubated, IV Lasix if continues to be fluid positive Cardiovascular 2nd echocardiogram this admission on 02/02/17 while in the ICU again * Limited study performed. * Compared to previous study of 01/30/17: LV and RV function now severely reduced. * Mildly dilated LV chamber size with mild concentric LVH. * Severely reduced LV systolic function with severe global hypokinesis, EF 25 -30%. * Mildly dilated RV chamber. Moderate to severe right ventricular hypokinesis is present that spares the right ventricular apex. -history of Metoprolol and HCTZ use at home, would advise reduced doses of Metoprolol if heart rate controlled and hold HCTZ while blood pressure is not hypertensive and patient is receiving IV Lasix initial hospital admission for sepsis secondary to E.coli, acute pyelonephritis with UTI with E.coli Patient is currently on Cefepime IV. Appreciate Infectious disease consultation on further antibiotic management history of factor V Leiden deficiency. endometrial cancer status post chemotherapy a month ago, treated for postchemotherapy pancytopenia, s/p 2 PRBC on this admission and Neupogen further hematology-oncology consult recommendations appreciated Acute kidney Injury monitor renal function while receiving diuretics History of hypothyroidism - continue Levothyroxine orally if possible DVT prophylaxis
[2017-02-02 10:29] LABS: INR 1.2 (0.9-1.1); PTT PATIENT 32.6 SECONDS (21.0-31.0)
[2017-02-02] MEDS: SODIUM CHLORIDE 0.9% 1000ML 1,000 ML IV SCH (11:05)
[2017-02-02] MEDS: FUROSEMIDE INJ 40 MG in SYRINGE 0 ML IV SCH (11:34)
[2017-02-02 13:26] LABS: RETIC COUNT % 0.6 % (0.5-2.0)
[2017-02-02] MEDS ORDERED: PEPTAMEN INTENSE VHP 1000ML BAG OG PRN (13:30)
[2017-02-02] MEDS ORDERED: PHARMACY GLYCEMIC MGMT CONSULT PRN (13:44)
[2017-02-02] MEDS ORDERED: DEXTROSE 50% 50 ML SYR IV PRN (15:15)
[2017-02-02] MEDS ORDERED: GLUCAGON FOR INJ 1 MG VIAL SQ PRN (15:15)
[2017-02-02] MEDS ORDERED: GLUCOSE 40% GEL 15 GM TUBE PO PRN (15:15)
[2017-02-02] MEDS ORDERED: GLUCOSE 10 TABS/TUBE PO PRN (15:15)
--- NOTE | 2017-02-02 15:16 | Pharmacy Progress Note ---
Glycemic Control Intl Consult Date of Service Feb 02, 2017. Scope Glycemic Pharmacist consulted by Dr Lugo on 02/02/17 for glycemic control and to write orders per [facility] inpatient glycemic control protocol Objective Weight (Kilograms): 95.100 Accuchecks BSG (last 24hrs): Test 02/02/17 00:48 02/02/17 04:45 Bedside Glucose 192 mg/dl (70-90) Random Glucose 196 mg/dl (70-99) Laboratory Data (last 24hrs) Test 02/02/17 04:45 Anion Gap 7.0 mmol/L BUN/Creatinine Ratio 22.6 Blood Urea Nitrogen 46 mg/dl Creatinine 2.04 mg/dl Potassium Level 3.5 mmol/L Sodium Level 139 mmol/L White Blood Count 14.03 K/uL Red Blood Count 3.65 M/uL Hemoglobin 10.3 g/dL Hematocrit 31.3 % Mean Corpuscular Volume 85.8 fL Mean Corpuscular Hemoglobin 28.2 pg Mean Corpuscular Hemoglobin Concent 32.9 g/dl Platelet Count 107 K/uL Mean Platelet Volume 10.8 fL Neutrophils (%) (Auto) 86.8 % Lymphocytes (%) (Auto) 5.1 % Monocytes (%) (Auto) 5.3 % Eosinophils (%) (Auto) 0.1 % Basophils (%) (Auto) 0.1 % Neutrophils # (Auto) 12.18 K/uL Lymphocytes # (Auto) 0.71 K/uL Monocytes # (Auto) 0.75 K/uL Eosinophils # (Auto) 0.01 K/uL Basophils # (Auto) 0.01 K/uL Recent Pertinent Medications Risk Factors for Insulin Resistance: * Steroids: Solu-Medrol 20 mg IV x 1 on 02/01/17 * Infection: E coli bacteremia receiving Cefepime * Pressors: Levophed at .006 mcg/kg/min * Diet: tube feeds- Peptamen at 10 cc/hr * Mechanical Ventilation:yes, sedated with fentanyl and Versed Assessment & Plan ASSESSMENT: * ADA & AACE recommend a goal blood sugar range 140-180 mg/dl for the majority of critically ill & non-critically ill patients. * Ms Elaine is a 61 y/o F with a PMH of endometrial CA, gastric bypass surgery, and factor V Leiden who presented with generalized weakness and VAUGHN. She was found to have a bacteremia with a relatively sensitive E coli. She has been receiving treatment with cefepime. Last night, the patient developed respiratory failure and necessitated intubation. * Ms Elaine has had two consecutive blood sugars over 180 mg/dL therefore according to guidelines insulin infusion will be started. Based upon HbA1C patient may need additional coverage after vasopressors and infection are overcome. PLAN FOR INPATIENT GLYCEMIC CONTROL: * Starting IV insulin infusion per moderate (moderate/severe) stress protocol * Goal Range 140 - 180 mg/dl * In the critical care setting, continuous IV insulin infusion has been shown to be the best method for achieving glycemic targets. * Please note that the plan above was derived based on current level of insulin resistance and hospital stress. These recommendations are appropriate for inpatient admission only. Plan of care upon discharge will need to be reassessed to avoid potential outpatient hypo/hyperglycemia. Thank you.
[2017-02-02] MEDS: INSULIN REGULAR 250 UNITS in SODIUM CHLORIDE 0.9% 250ML 250 ML IV SCH (15:34)
--- NOTE | 2017-02-02 15:46 | DIAGNOSTIC IMAGING REPORT ---
VENOUS DOPPLER LWR EXT BILA CLINICAL HISTORY: 61 years-old Female presenting with R/O DVT, factor V Leiden, hypoxia, acute kidney injury. TECHNIQUE: Real-time grayscale and color and spectral Doppler ultrasound imaging of the veins of the bilateral lower extremities was performed. Compression and augmentation were also utilized. COMPARISON: 12/23/2010. FINDINGS: Right: Common femoral vein: Patent. Greater saphenous vein: Patent. Deep femoral vein: Patent. Femoral vein: Patent. Popliteal vein: Patent. Calf veins: Limited visualization. Left: Common femoral vein: Patent. Greater saphenous vein: Patent. Deep femoral vein: Patent. Femoral vein: Patent. Popliteal vein: Patent. Calf veins: Limited visualization. Other: None. IMPRESSION: No evidence of deep venous thrombosis. Electronically signed by: Devaughn Ozuna M.D. 02/02/2017 3:45 PM Dictated Date/Time: 02/02/2017 3:44 PM
--- NOTE | 2017-02-02 15:53 | DIAGNOSTIC IMAGING REPORT ---
(RENAL)RETROPERITON COMP CLINICAL HISTORY: 61 years-old Female presenting with VAUGHN, include as much of IVC as possible. TECHNIQUE: Real-time grayscale and limited color Doppler ultrasound imaging of the kidneys and bladder was performed. COMPARISON: CT from 01/30/2017. FINDINGS: Right kidney: Normal echogenicity. Right kidney measures 11.4 cm. No hydronephrosis. No convincing evidence of calculus or mass. Normal perfusion. Left kidney: Normal echogenicity. Left kidney measures 11.9 cm. No hydronephrosis. No convincing evidence of calculus or mass. Normal perfusion. Bladder: Kruse catheter incompletely decompresses the urinary bladder. Other: Visualized portion of the IVC within normal limits. IMPRESSION: 1. No hydronephrosis. No renal abscess. 2. Kruse catheter incompletely decompresses the urinary bladder. Correlate clinically for appropriate drainage. Electronically signed by: Devaughn Ozuna M.D. 02/02/2017 3:51 PM Dictated Date/Time: 02/02/2017 3:50 PM
[2017-02-02] MEDS: FENTANYL 1250MCG/250ML NSS IV PRN (16:50)
[2017-02-02] MEDS: MIDAZOLAM 125MG/250ML D5W 250 ML IV PRN (16:50)
[2017-02-02 17:13] LABS: PTT PATIENT 65.8 SECONDS (21.0-31.0)
[2017-02-02] MEDS ORDERED: INSULIN ASPART 100 UNITS/ML 3 ML PEN SC SCH (17:15)
--- NOTE | 2017-02-02 17:24 | Infectious Disease Progress Nt ---
Progress Note Date of Service Feb 02, 2017. Subjective Pt evaluation today including: physical exam, chart review, lab review, review of studies, conversation w/ telesales consultant, review of inpatient medication list Patient remains sedated on ventilator. No significant fever. White count up a bit. Follow-up blood cultures no growth to date. Additional Comments: Not obtainable because patient sedated on ventilator Medications Current Inpatient Medications Medications (Trade) Dose Ordered Sig/Alek Route Start Time Stop Time Status Last Admin Dose Admin Acetaminophen (Tylenol Tab) 650 mg Q4H PRN PO 01/29/17 12:15 02/28/17 12:14 01/31/17 09:28 650 MG Prochlorperazine Edisylate 5 mg/ Syringe 5 ml @ 5 mls/min Q6H PRN IV 01/29/17 13:00 02/28/17 12:59 Levothyroxine Sodium (Synthroid Tab) 100 mcg DAILYBB PO 01/30/17 06:00 03/01/17 05:59 02/02/17 06:38 100 MCG Lorazepam (Ativan Tab) 0.5 mg BID PRN PO 01/29/17 13:15 02/28/17 13:14 02/01/17 04:12 0.5 MG Sertraline HCl (Zoloft Tab) 200 mg HS PO 01/29/17 21:00 02/28/17 20:59 02/01/17 20:59 200 MG Tramadol HCl (Ultram Tab) 50 mg Q6H PRN PO 01/29/17 13:15 02/28/17 13:14 01/31/17 12:30 50 MG Cefepime HCl (Consult) 1 ea DAILY PRN N/A 01/30/17 09:00 03/01/17 08:59 Gabapentin (Neurontin Cap) 200 mg TID PO 01/30/17 09:00 02/28/17 13:59 02/02/17 15:20 200 MG Cefepime HCl 2000 mg/Syringe 20 ml @ 5 mls/min Q12H IV 01/31/17 14:00 02/14/17 13:59 02/02/17 13:53 5 MLS/MIN Sodium Bicarbonate (Sodium Bicarbonate Tab) 1,300 mg TID PO 02/01/17 21:00 03/03/17 20:59 02/02/17 15:20 1,300 MG Norepinephrine Bitartrate 8 mg/ Dextrose 508 ml @ 0 mls/hr Q0M PRN IV 02/01/17 15:13 03/03/17 15:12 02/01/17 18:05 30 MLS/HR Chlorhexidine Gluconate (Peridex Oral Soln) 15 ml DAILY MT 02/02/17 09:00 03/04/17 08:59 02/02/17 09:24 15 ML Pantoprazole Sodium 40 mg/ Syringe 10 ml @ 5 mls/min DAILY@09,21 IV 02/01/17 21:00 03/03/17 20:59 02/02/17 09:23 5 MLS/MIN Ipratropium Carmel (Atrovent Hfa Inhaler) 4 puffs Q6R INH 02/01/17 21:05 03/03/17 21:04 02/02/17 14:25 4 PUFFS Levalbuterol (Xopenex Hfa Inhaler) 4 puffs Q6R INH 02/01/17 21:05 03/03/17 21:04 02/02/17 14:25 4 PUFFS Sodium Chloride 1,000 ml @ 75 mls/hr [id number] IV 02/01/17 21:45 03/03/17 21:44 02/01/17 21:45 75 MLS/HR Heparin Sodium/ Dextrose 500 ml @ 16 mls/hr Q24H PRN IV 02/02/17 09:45 03/04/17 09:44 02/02/17 09:55 16 MLS/HR Midazolam HCl 250 ml @ 0 mls/hr Q0M PRN IV 02/02/17 10:00 03/04/17 09:59 02/02/17 16:50 4 MLS/HR Fentanyl Citrate 250 ml @ 0 mls/hr Q0M PRN IV 02/02/17 10:00 02/16/17 09:59 02/02/17 16:50 1 MLS/HR Miscellaneous Information (Consult Glycemic Management Pharmacy) 1 ea UD PRN N/A 02/02/17 13:44 03/04/17 13:43 Enteral Nutritional Formula (Peptamen Intense VHP) 1,000 ml UD PRN OG 02/02/17 13:30 1/17/18 13:29 02/02/17 15:47 1,000 ML Insulin Human Regular 250 units/ Sodium Chloride 252.5 ml @ 0 mls/hr Q24H IV 02/02/17 15:30 03/04/17 15:29 02/02/17 15:34 2.4 MLS/HR Glucose (Glucose 40% Gel) UD PRN PO 02/02/17 15:15 03/04/17 15:14 Glucose (Glucose Chew Tab) 1 tabs UD PRN PO 02/02/17 15:15 03/04/17 15:14 Dextrose (Dextrose 50% 50ML Syringe) 50 ml UD PRN IV 02/02/17 15:15 03/04/17 15:14 Glucagon (Glucagon Inj) 1 mg UD PRN SQ 02/02/17 15:15 03/04/17 15:14 Insulin Aspart (novoLOG ASPART) SLIDING SCALE Q6 SC 02/02/17 18:00 03/04/17 17:14 Objective Vital Signs Date Time Temp Pulse Resp B/P (MAP) Pulse Ox O2 Delivery O2 Flow Rate FiO2 02/02/17 16:05 100 Mechanical Ventilator 50 02/02/17 16:05 50 02/02/17 14:25 60 02/02/17 12:00 60 02/02/17 12:00 Mechanical Ventilator 60 02/02/17 11:05 60 02/02/17 08:00 60 02/02/17 08:00 Mechanical Ventilator 60 02/02/17 07:20 60 02/02/17 06:31 82 30 84/60 (68) 100 02/02/17 06:16 80 30 100/74 (62) 100 02/02/17 06:01 82 30 100/67 (73) 100 02/02/17 05:48 60 02/02/17 05:46 85 30 102/72 (77) 99 02/02/17 05:37 85 30 93/62 (70) 97 02/02/17 05:31 88 30 85/62 (65) 97 02/02/17 05:16 85 30 97/65 (71) 97 02/02/17 05:04 90 30 107/63 (84) 98 02/02/17 05:03 90 30 76/44 (51) 97 02/02/17 04:46 83 30 101/71 (74) 100 02/02/17 04:31 84 30 100/71 (75) 100 02/02/17 04:16 84 30 100/71 (76) 100 02/02/17 04:01 37.4 84 30 106/73 (79) 100 02/02/17 04:00 60 02/02/17 04:00 Mechanical Ventilator 60 02/02/17 03:46 78 30 119/77 (90) 99 02/02/17 03:31 83 30 106/76 (85) 100 02/02/17 03:16 83 30 105/75 (83) 100 02/02/17 03:01 82 30 103/73 (84) 100 02/02/17 02:46 83 30 102/72 (82) 100 02/02/17 02:31 83 30 100/73 (82) 100 02/02/17 02:19 80 02/02/17 02:16 84 30 101/69 (74) 99 02/02/17 02:01 83 30 100/72 (79) 100 02/02/17 01:46 83 30 97/68 (83) 100 02/02/17 01:31 84 30 101/72 (78) 100 02/02/17 01:16 84 30 98/67 (77) 100 02/02/17 01:01 83 30 98/69 (81) 100 02/02/17 00:46 82 30 98/71 (80) 100 02/02/17 00:31 83 30 97/71 (74) 100 02/02/17 00:16 85 30 112/71 (80) 100 02/02/17 00:01 Mechanical Ventilator 80 02/02/17 00:01 37.7 82 30 98/72 (77) 100 02/02/17 00:01 80 02/01/17 23:46 84 30 104/76 (88) 100 02/01/17 23:31 81 30 99/73 (81) 100 02/01/17 23:20 80 02/01/17 23:16 81 29 99/73 (82) 100 02/01/17 23:01 81 30 100/73 (83) 100 02/01/17 22:46 79 30 101/73 (84) 100 02/01/17 22:31 80 30 103/72 (82) 100 02/01/17 22:16 81 30 100/73 (83) 100 02/01/17 22:01 80 30 122/69 (80) 100 02/01/17 21:46 80 30 99/73 (80) 100 02/01/17 21:31 80 30 98/69 (80) 100 02/01/17 21:16 82 30 93/69 (79) 100 02/01/17 21:01 82 30 108/68 (74) 100 02/01/17 20:46 84 24 93/67 (76) 100 02/01/17 20:31 85 30 93/67 (74) 100 02/01/17 20:16 88 30 97/66 (72) 99 02/01/17 20:01 37.4 90 30 108/70 (78) 99 02/01/17 20:00 Mechanical Ventilator 80 02/01/17 20:00 100 02/01/17 20:00 80 02/01/17 19:46 91 21 104/79 (95) 98 02/01/17 19:25 84 30 96/71 (76) 100 02/01/17 19:16 85 30 82/60 (67) 99 02/01/17 19:10 84 30 84/59 (64) 99 02/01/17 17:37 95 24 76/54 (61) 93 Mechanical Ventilator 100 02/01/17 17:35 96 24 84/62 (69) 93 Mechanical Ventilator 100 02/01/17 17:35 100 02/01/17 17:30 100 25 127/83 (98) 92 Mechanical Ventilator 100 Physical Exam General Appearance: no apparent distress, + pertinent finding (Sedated on ventilator) Eyes: normal inspection, sclerae normal ENT: normal ENT inspection, pharynx normal Neck: supple, no adenopathy, trachea midline Respiratory/Chest: no respiratory distress, + rhonchi Cardiovascular: regular rate, rhythm, no gallop, no murmur Abdomen: normal bowel sounds, non tender, soft, no organomegaly Extremities: non-tender, no calf tenderness Neurologic/Psychiatric: + pertinent finding (Sedated on ventilator, no obvious new deficits) Skin: normal color, warm/dry, no rash Laboratory Results RUN DATE: 02/02/17 [facility] LAB PAGE 1 RUN TIME: 1300 Specimen Inquiry PATIENT: TACOS AGUILERA LOC: [facility] U # : [id number] AGE/SX: 61/F ROOM: [facility] REG : 01/29/[address]: Gray Rust M.D. : 1955 BED: 1 DIS : STATUS: ADM IN TLOC: SPEC #: [id number] DANYEL: 02/01/17 STATUS: RES REQ #: [id number] RECD: 02/01/[address]: Gray Rust M.D. SOURCE: URINE CATH ENTR: 02/01/17-[address]: Herman Rene MD SPDC: Linette Quiñonez MD Haroon, Salman A., Pablo Ott D.ODarius Reina D.OHawk Lee MD ORDERED: CULTURE UR CATH Procedure Result Verified Site URINE CULTURE Preliminary 02/02/17-1259 NO GROWTH - LESS THAN 1,000 COLONIES/ML, Final Report to Follow. Current Inpatient Medications Medications (Trade) Dose Ordered Sig/Alek Route Start Time Stop Time Status Last Admin Dose Admin Acetaminophen (Tylenol Tab) 650 mg Q4H PRN PO 01/29/17 12:15 02/28/17 12:14 01/31/17 09:28 650 MG Prochlorperazine Edisylate 5 mg/ Syringe 5 ml @ 5 mls/min Q6H PRN IV 01/29/17 13:00 02/28/17 12:59 Levothyroxine Sodium (Synthroid Tab) 100 mcg DAILYBB PO 01/30/17 06:00 03/01/17 05:59 02/02/17 06:38 100 MCG Lorazepam (Ativan Tab) 0.5 mg BID PRN PO 01/29/17 13:15 02/28/17 13:14 02/01/17 04:12 0.5 MG Sertraline HCl (Zoloft Tab) 200 mg HS PO 01/29/17 21:00 02/28/17 20:59 02/01/17 20:59 200 MG Tramadol HCl (Ultram Tab) 50 mg Q6H PRN PO 01/29/17 13:15 02/28/17 13:14 01/31/17 12:30 50 MG Cefepime HCl (Consult) 1 ea DAILY PRN N/A 01/30/17 09:00 03/01/17 08:59 Gabapentin (Neurontin Cap) 200 mg TID PO 01/30/17 09:00 02/28/17 13:59 02/02/17 15:20 200 MG Cefepime HCl 2000 mg/Syringe 20 ml @ 5 mls/min Q12H IV 01/31/17 14:00 02/14/17 13:59 02/02/17 13:53 5 MLS/MIN Sodium Bicarbonate (Sodium Bicarbonate Tab) 1,300 mg TID PO 02/01/17 21:00 03/03/17 20:59 02/02/17 15:20 1,300 MG Norepinephrine Bitartrate 8 mg/ Dextrose 508 ml @ 0 mls/hr Q0M PRN IV 02/01/17 15:13 03/03/17 15:12 02/01/17 18:05 30 MLS/HR Chlorhexidine Gluconate (Peridex Oral Soln) 15 ml DAILY MT 02/02/17 09:00 03/04/17 08:59 02/02/17 09:24 15 ML Pantoprazole Sodium 40 mg/ Syringe 10 ml @ 5 mls/min DAILY@09,21 IV 02/01/17 21:00 03/03/17 20:59 02/02/17 09:23 5 MLS/MIN Ipratropium Carmel (Atrovent Hfa Inhaler) 4 puffs Q6R INH 02/01/17 21:05 03/03/17 21:04 02/02/17 14:25 4 PUFFS Levalbuterol (Xopenex Hfa Inhaler) 4 puffs Q6R INH 02/01/17 21:05 03/03/17 21:04 02/02/17 14:25 4 PUFFS Sodium Chloride 1,000 ml @ 75 mls/hr [id number] IV 02/01/17 21:45 03/03/17 21:44 02/01/17 21:45 75 MLS/HR Heparin Sodium/ Dextrose 500 ml @ 16 mls/hr Q24H PRN IV 02/02/17 09:45 03/04/17 09:44 02/02/17 09:55 16 MLS/HR Midazolam HCl 250 ml @ 0 mls/hr Q0M PRN IV 02/02/17 10:00 03/04/17 09:59 02/02/17 16:50 4 MLS/HR Fentanyl Citrate 250 ml @ 0 mls/hr Q0M PRN IV 02/02/17 10:00 02/16/17 09:59 02/02/17 16:50 1 MLS/HR Miscellaneous Information (Consult Glycemic Management Pharmacy) 1 ea UD PRN N/A 02/02/17 13:44 03/04/17 13:43 Enteral Nutritional Formula (Peptamen Intense VHP) 1,000 ml UD PRN OG 02/02/17 13:30 03/04/17 13:29 02/02/17 15:47 1,000 ML Insulin Human Regular 250 units/ Sodium Chloride 252.5 ml @ 0 mls/hr Q24H IV 02/02/17 15:30 03/04/17 15:29 02/02/17 15:34 2.4 MLS/HR Glucose (Glucose 40% Gel) UD PRN PO 02/02/17 15:15 03/04/17 15:14 Glucose (Glucose Chew Tab) 1 tabs UD PRN PO 02/02/17 15:15 03/04/17 15:14 Dextrose (Dextrose 50% 50ML Syringe) 50 ml UD PRN IV 02/02/17 15:15 03/04/17 15:14 Glucagon (Glucagon Inj) 1 mg UD PRN SQ 02/02/17 15:15 03/04/17 15:14 Insulin Aspart (novoLOG ASPART) SLIDING SCALE Q6 SC 02/02/17 18:00 03/04/17 17:14 Last 24 Hours Test 02/02/17 00:48 02/02/17 00:59 02/02/17 04:45 02/02/17 05:16 Bedside Glucose 192 mg/dl Bedside Glucose (other) 183 mg/dl White Blood Count 14.03 K/uL Red Blood Count 3.65 M/uL Hemoglobin 10.3 g/dL Hematocrit 31.3 % Mean Corpuscular Volume 85.8 fL Mean Corpuscular Hemoglobin 28.2 pg Mean Corpuscular Hemoglobin Concent 32.9 g/dl Platelet Count 107 K/uL Mean Platelet Volume 10.8 fL Neutrophils (%) (Auto) 86.8 % Lymphocytes (%) (Auto) 5.1 % Monocytes (%) (Auto) 5.3 % Eosinophils (%) (Auto) 0.1 % Basophils (%) (Auto) 0.1 % Neutrophils # (Auto) 12.18 K/uL Lymphocytes # (Auto) 0.71 K/uL Monocytes # (Auto) 0.75 K/uL Eosinophils # (Auto) 0.01 K/uL Basophils # (Auto) 0.01 K/uL RDW Standard Deviation 57.8 fL RDW Coefficient of Variation 21.4 % Immature Granulocyte % (Auto) 2.6 % Immature Granulocyte # (Auto) 0.37 K/uL Nucleated RBC Absolute Count (auto) 0.03 K/uL Nucleated Red Blood Cells % 0.2 % Toxic Granulation 1+ Poikilocytosis PRESENT Anisocytosis PRESENT Sodium Level 139 mmol/L Potassium Level 3.5 mmol/L Chloride Level 109 mmol/L Carbon Dioxide Level 23 mmol/L Anion Gap 7.0 mmol/L Blood Urea Nitrogen 46 mg/dl Creatinine 2.04 mg/dl Est Creatinine Clear Calc Drug Dose 31.3 ml/min Estimated GFR () 30.2 Estimated GFR (Non- 26.0 BUN/Creatinine Ratio 22.6 Random Glucose 196 mg/dl Calcium Level 7.2 mg/dl Total Bilirubin 0.7 mg/dl Aspartate Amino Transf (AST/SGOT) 13 U/L Alanine Aminotransferase (ALT/SGPT) 14 U/L Alkaline Phosphatase 135 U/L Total Protein 4.9 gm/dl Albumin 1.5 gm/dl Globulin 3.4 gm/dl Albumin/Globulin Ratio 0.4 Blood Gas Sample Site L Radial Bedside Blood Gas pH (LAB) 7.38 Bedside Blood Gas pCO2 (LAB) 36 mmHg Bedside Blood Gas pO2 (LAB) 77 mmHg Bedside Blood Gas HCO3 (LAB) 21 meq/L Bedside Blood Gas Total CO2 22 mEq/l Bedside Blood Gas Base Excess (LAB) -4.0 meq/L Bedside Blood Gas O2 Saturation 95.0 % Andrae Test Pass Oxygen Delivery Device Ventilator Bedside Oxygen Rate (breaths/min) 30 Bedside FiO2 60 % Blood Gas PEEP 10 Test 02/02/17 10:08 02/02/17 13:06 02/02/17 13:07 02/02/17 16:43 Prothrombin Time 12.1 SECONDS Prothromb Time International Ratio 1.2 Activated Partial Thromboplast Time 32.6 SECONDS 65.8 SECONDS Partial Thromboplastin Ratio 1.3 2.5 Absolute Reticulocyte Count 0.02 10^6/uL Percent Reticulocyte Count 0.6 % Troponin I 0.033 ng/ml Pro-B-Type Natriuretic Peptide > 82701 pg/ml Lactic Acid Level 2.2 mmol/L Random Cortisol 21.22 mcg/dl CHEST ONE VIEW PORTABLE CLINICAL HISTORY: Respiratory failure COMPARISON STUDY: 02/01/2017 FINDINGS: There is an endotracheal tube 23 mm above the gracy. There is a nasogastric tube which passes into the stomach. There is a left internal jugular central venous catheter, the tip of which extends into the right atrium. There is a right internal jugular A-Port catheter, the tip of which terminates at the level of the subclavian right internal jugular confluence. The heart is mildly enlarged. There are improving bilateral interstitial opacities.[ IMPRESSION: Slight improvement in the bilateral interstitial pulmonary opacities. Electronically signed by: César Huizar M.D. 02/02/2017 8:54 AM Dictated Date/Time: 02/02/2017 8:52 AM The status of this report is Signed. Draft = Not yet reviewed or approved by Radiologist. Signed = Reviewed and approved by Radiologist Assessment and Plan 61-year-old female with E coli sepsis, with evidence of pyelonephritis with respiratory failure requiring intubation. Patient be continued on IV cefepime for now. Will discuss need for potential removal of central line given presence of bacteremia. Will discuss with all involved. Will follow.
[2017-02-02] MEDS: INSULIN ASPART 100 UNITS/ML 3 ML PEN SC SCH (18:00)
--- NOTE | 2017-02-02 18:40 | Hematology/Oncology Prog Note ---
Hematology/Onc Progress Note Date of Service Feb 02, 2017. Subjective Over the weekend she was transferred from telemetry to ICU (02/01/2017), for hypoxemia which required intubation, presently she is sedated, on mechanical ventilation support, no family member at bedside, I spoke with the ICU nurse, I see physician about her case, she has localized the uterine cancer, no lymph kristin or distant metastatic disease, she received 1st cycle of chemotherapy ( neoadjuvant chemotherapy) in the form of paclitaxel and carboplatin about 4 weeks back, she also received prophylactic Neulasta, she came to [facility] 01/29/2017 for septicemia, E.Coli pyelonephritis with bacteremia, she has recovered well and then transferred to the telemetry but then her clinical condition deteriorated and now she is back in the ICU. -bilateral lower extremity Doppler evaluation done on 02/02/2017 showed no evidence of DVT. Significantly elevated proBNP noted around > 35,000. Echocardiogram done on 01/23/2017 showed significant drop in the ejection fraction to around 25 to 30%, moderate to severe right ventricular hypokinesia noted. Also suspect was possible thromboembolic disease, started her on IV heparin. Her blood pressure has remained slightly on the lower side, no fever. I reviewed her blood workup, on admission she had low white blood cell count around 1060, hemoglobin was 6.4, platelet count was around 81,000, received Neupogen on 01/30/2017 white blood cell count gradually improved, it is around 40,000 as of today, hemoglobin is 10.3, platelet count is around 107,000. Earlier she received chemotherapy about 4 weeks so recent drop in the white blood count is not related to the previous chemotherapy but most likely related to the sepsis. Will continue with current ICU management. Vital Signs Vital Signs Past 12 Hours Date Time Temp Pulse Resp B/P (MAP) Pulse Ox O2 Delivery O2 Flow Rate FiO2 02/02/17 18:01 37.3 76 30 108/72 (84) 100 40 79 02/02/17 17:46 81 30 88/60 (69) 100 40 02/02/17 17:36 80 30 99/67 (78) 100 40 02/02/17 17:35 50 02/02/17 17:31 36.9 77 30 89/63 (72) 100 40 73 02/02/17 17:16 80 30 90/62 (71) 100 50 02/02/17 17:01 36.9 82 30 89/62 (71) 100 50 02/02/17 16:46 79 30 98/64 (75) 100 50 17 16:31 36.9 84 30 90/64 (73) 100 50 88 02/02/17 16:16 84 30 92/64 (73) 100 50 02/02/17 16:05 100 Mechanical Ventilator 50 02/02/17 16:05 50 02/02/17 16:01 36.8 86 30 91/64 (73) 100 50 77 02/02/17 14:25 60 02/02/17 12:00 60 02/02/17 12:00 Mechanical Ventilator 60 02/02/17 11:05 60 02/02/17 08:00 60 02/02/17 08:00 Mechanical Ventilator 60 02/02/17 07:20 60
[2017-02-02] MEDS ORDERED: ACETAMINOPHEN SOLN 650MG/20.3 ML UDC PO PRN (19:00)
[2017-02-02] MEDS: SERTRALINE HCL 100 MG TAB PO SCH (22:03)
[2017-02-03] VITALS (51 sets, daily range): BP systolic 80–130; BP diastolic 54–83; PULSE 70–93; TEMP 36.5–37.1; O2SAT 92–100
[2017-02-03] MEDS: CEFEPIME IV 2,000 MG in SYRINGE 7.5 ML IV SCH (01:52)
[2017-02-03] MEDS: NOREPINEPHRINE BIT INJ 8 MG in DEXTROSE 5% 500ML 500 ML IV PRN (01:58)
[2017-02-03] MEDS: IPRATROPIUM BROMIDE HFA INHALER INH SCH ×4 (02:18→19:35)
[2017-02-03] MEDS: LEValbuterol HFA 15GM INHALER INH SCH ×4 (02:18→19:35)
--- NOTE | 2017-02-03 02:48 | Critical Care Progress Note ---
Critical Care Progress Note Date of Service Feb 02, 2017. ICU Day ICU Day Number: [address] Lugo Subjective Intubated and sedated Objective Normocephalic atraumatic S1-S2 Scattered rhonchi bilaterally Abdomen soft nondistended Dependent edema present. Current SOFA Score SOFA Score Response (Comments) Value PaO2/FiO2 (mmHg) < 200 3 SaO2 / FIO2 221 - 301 1 Platelets (x10) < 150 1 Bilirubin (mg/dL) < 1.2 0 Janette Coma Score 13 - 14 1 Level of Hypotension Dopamine > 5 mcq or Epi < 0.1 mcq 3 Creatinine (mg/dL) 2.0 - 3.4 2 Total 11 Assessment & Plan Reason Critically Ill: E coli bacteremia, severe sepsis septic shock PLAN: Neuro: Sedation with were Versed and 50 g of fentanyl Resp: ARDS, P/F ratio greater than 100, ventilator requirement slightly decreasing, delta P at 15 down from 20. Static and dynamic compliance both poor at 19 and 23 respectively CV: Reviewed repeat limited echo significant decrease in ejection fraction as well as evidence of possible right ventricular volume overload, continued vasoactive medication support Fluids/Renal: Acute kidney injury ID: Downgraded cefepime 2 ceftriaxone based on sensitivities GI/Nutrition: Trickle tube feeds at this time Heme: Concern for possible pulmonary embolism, she is at high risk for venous thromboembolic disease him. Empiric heparin infusion at this time, will check bilateral venous duplex Endocrine: Check random cortisol may require additional steroids Vascular access: Patient has a Port-A-Cath. There's been concern for subcutaneous leakage. I discussed this extensively with IV team. They felt that the most recent access needle was not in appropriate position. The patient will require a Port-A-Cath study once hemodynamically stable. I have personally spent 55 minutes of critical care time in the direct management of this patient. This is a life/limb threatening event. This includes time spent evaluating patient, direct bedside care, chart review, placing orders, interpretation of diagnostic studies, discussion with consultants, patient, and family members, as well as other required patient management activities. This time is exclusive of all separately billable procedures, and teaching time and separate from and in addition to any other critical care service time. Consults & Procedures Consultants: Oncology Procedures: None Data Medications: Current Inpatient Medications Medications (Trade) Dose Ordered Sig/Alek Route Start Time Stop Time Status Last Admin Dose Admin Prochlorperazine Edisylate 5 mg/ Syringe 5 ml @ 5 mls/min Q6H PRN IV 01/29/17 13:00 02/28/17 12:59 Levothyroxine Sodium (Synthroid Tab) 100 mcg DAILYBB PO 01/30/17 06:00 03/01/17 05:59 02/02/17 06:38 100 MCG Lorazepam (Ativan Tab) 0.5 mg BID PRN PO 01/29/17 13:15 02/28/17 13:14 02/01/17 04:12 0.5 MG Sertraline HCl (Zoloft Tab) 200 mg HS PO 01/29/17 21:00 02/28/17 20:59 02/02/17 22:03 200 MG Tramadol HCl (Ultram Tab) 50 mg Q6H PRN PO 01/29/17 13:15 02/28/17 13:14 01/31/17 12:30 50 MG Cefepime HCl (Consult) 1 ea DAILY PRN N/A 01/30/17 09:00 03/01/17 08:59 Gabapentin (Neurontin Cap) 200 mg TID PO 01/30/17 09:00 02/28/17 13:59 02/02/17 20:48 200 MG Cefepime HCl 2000 mg/Syringe 20 ml @ 5 mls/min Q12H IV 01/31/17 14:00 02/14/17 13:59 02/03/17 01:52 5 MLS/MIN Sodium Bicarbonate (Sodium Bicarbonate Tab) 1,300 mg TID PO 02/01/17 21:00 03/03/17 20:59 02/02/17 20:48 1,300 MG Norepinephrine Bitartrate 8 mg/ Dextrose 508 ml @ 0 mls/hr Q0M PRN IV 02/01/17 15:13 03/03/17 15:12 02/03/17 01:58 29.6 MLS/HR Chlorhexidine Gluconate (Peridex Oral Soln) 15 ml DAILY MT 02/02/17 09:00 03/04/17 08:59 02/02/17 09:24 15 ML Pantoprazole Sodium 40 mg/ Syringe 10 ml @ 5 mls/min DAILY@ IV 02/01/17 21:00 03/03/17 20:59 02/02/17 20:47 5 MLS/MIN Ipratropium Curlew (Atrovent Hfa Inhaler) 4 puffs Q6R INH 02/01/17 21:05 03/03/17 21:04 02/03/17 02:18 4 PUFFS Levalbuterol (Xopenex Hfa Inhaler) 4 puffs Q6R INH 02/01/17 21:05 03/03/17 21:04 02/03/17 02:18 4 PUFFS Heparin Sodium/ Dextrose 500 ml @ 16 mls/hr Q24H PRN IV 02/02/17 09:45 03/04/17 09:44 02/02/17 09:55 16 MLS/HR Midazolam HCl 250 ml @ 0 mls/hr Q0M PRN IV 02/02/17 10:00 03/04/17 09:59 02/02/17 16:50 4 MLS/HR Fentanyl Citrate 250 ml @ 0 mls/hr Q0M PRN IV 02/02/17 10:00 02/16/17 09:59 02/02/17 16:50 1 MLS/HR Miscellaneous Information (Consult Glycemic Management Pharmacy) 1 ea UD PRN N/A 02/02/17 13:44 03/04/17 13:43 Enteral Nutritional Formula (Peptamen Intense VHP) 1,000 ml UD PRN OG 02/02/17 13:30 03/04/17 13:29 02/02/17 15:47 1,000 ML Insulin Human Regular 250 units/ Sodium Chloride 252.5 ml @ 0 mls/hr Q24H IV 02/02/17 15:30 03/04/17 15:29 02/02/17 15:34 2.4 MLS/HR Glucose (Glucose 40% Gel) UD PRN PO 02/02/17 15:15 03/04/17 15:14 Glucose (Glucose Chew Tab) 1 tabs UD PRN PO 02/02/17 15:15 03/04/17 15:14 Dextrose (Dextrose 50% 50ML Syringe) 50 ml UD PRN IV 02/02/17 15:15 03/04/17 15:14 Glucagon (Glucagon Inj) 1 mg UD PRN SQ 02/02/17 15:15 03/04/17 15:14 Insulin Aspart (novoLOG ASPART) SLIDING SCALE Q6 SC 02/02/17 18:00 03/04/17 17:14 Acetaminophen (Tylenol Soln) 650 mg Q4H PRN PO 02/02/17 19:00 03/04/17 18:59 Vital Signs: Date Time Temp Pulse Resp B/P (MAP) Pulse Ox O2 Delivery O2 Flow Rate FiO2 02/03/17 02:18 50 02/03/17 02:16 84 30 125/75 (81) 96 02/03/17 02:01 78 30 125/72 (87) 98 02/03/17 01:47 80 30 120/73 (91) 93 02/03/17 01:45 80 30 96/69 (81) 92 02/03/17 01:16 74 31 112/83 (95) 96 02/03/17 01:01 72 0 118/69 (79) 95 02/03/17 01:00 73 27 95 02/03/17 00:46 72 30 115/68 (78) 97 02/03/17 00:31 72 28 112/70 (79) 96 02/03/17 00:30 75 27 95 02/03/17 00:16 73 0 114/70 (78) 96 02/03/17 00:01 73 25 112/72 (89) 96 02/03/17 00:00 Mechanical Ventilator 40 02/03/17 00:00 40 02/03/17 00:00 37.0 02/02/17 23:46 74 30 110/67 (75) 95 02/02/17 23:31 74 30 111/71 (91) 96 02/02/17 23:30 74 30 96 02/02/17 23:27 50 02/02/17 23:16 77 30 109/71 (77) 95 02/02/17 23:01 76 30 110/73 (79) 96 02/02/17 23:00 78 30 96 02/02/17 22:31 84 30 116/71 (76) 96 02/02/17 22:16 85 30 93/60 (66) 96 02/02/17 22:02 86 30 106/66 (77) 93 02/02/17 21:46 72 26 110/68 (91) 95 02/02/17 21:31 77 30 106/68 (83) 95 12/18/17 21:16 73 30 101/66 (75) 94 12/18/17 21:01 72 30 103/67 (76) 95 12/18/17 20:51 50 12/18/17 20:46 73 30 104/67 (77) 95 12/18/17 20:31 75 30 105/65 (69) 95 12/18/17 20:16 78 30 101/69 (75) 94 /18/17 20:00 37.1 12/18/17 20:00 40 18/17 20:00 Mechanical Ventilator 40 18/17 18:01 37.3 76 30 108/72 (84) 100 40 79 12/18/17 17:46 81 30 88/60 (69) 100 40 12/18/17 17:36 80 30 99/67 (78) 100 40 12/18/17 17:35 50 12/18/17 17:31 36.9 77 30 89/63 (72) 100 40 73 18/17 17:16 80 30 90/62 (71) 100 50 1218/17 17:01 36.9 82 30 89/62 (71) 100 50 12/18/17 16:46 79 30 98/64 (75) 100 50 12/18/17 16:31 36.9 84 30 90/64 (73) 100 50 88 /18/17 16:16 84 30 92/64 (73) 100 50 12/18/17 16:05 100 Mechanical Ventilator 50 18/17 16:05 50 18/17 16:01 36.8 86 30 91/64 (73) 100 50 77 18/17 14:25 60 18/17 12:00 60 18/17 12:00 Mechanical Ventilator 60 17 11:05 60 18/17 08:00 60 18/17 08:00 Mechanical Ventilator 60 17 07:20 60 18/17 06:31 82 30 84/60 (68) 100 1817 06:16 80 30 100/74 (62) 100 1817 06:01 82 30 100/67 (73) 100 18/17 05:48 60 18/17 05:46 85 30 102/72 (77) 99 17 05:37 85 30 93/62 (70) 97 02/02/17 05:31 88 30 85/62 (65) 97 02/02/17 05:16 85 30 97/65 (71) 97 02/02/17 05:04 90 30 107/63 (84) 98 02/02/17 05:03 90 30 76/44 (51) 97 02/02/17 04:46 83 30 101/71 (74) 100 02/02/17 04:31 84 30 100/71 (75) 100 02/02/17 04:16 84 30 100/71 (76) 100 02/02/17 04:01 37.4 84 30 106/73 (79) 100 02/02/17 04:00 60 02/02/17 04:00 Mechanical Ventilator 60 02/02/17 03:46 78 30 119/77 (90) 99 02/02/17 03:31 83 30 106/76 (85) 100 02/02/17 03:16 83 30 105/75 (83) 100 02/02/17 03:01 82 30 103/73 (84) 100 02/02/17 02:46 83 30 102/72 (82) 100 Laboratory Results: Last 24 Hours Test 02/02/17 04:45 02/02/17 05:16 02/02/17 10:08 02/02/17 11:54 White Blood Count 14.03 K/uL Red Blood Count 3.65 M/uL Hemoglobin 10.3 g/dL Hematocrit 31.3 % Mean Corpuscular Volume 85.8 fL Mean Corpuscular Hemoglobin 28.2 pg Mean Corpuscular Hemoglobin Concent 32.9 g/dl Platelet Count 107 K/uL Mean Platelet Volume 10.8 fL Neutrophils (%) (Auto) 86.8 % Lymphocytes (%) (Auto) 5.1 % Monocytes (%) (Auto) 5.3 % Eosinophils (%) (Auto) 0.1 % Basophils (%) (Auto) 0.1 % Neutrophils # (Auto) 12.18 K/uL Lymphocytes # (Auto) 0.71 K/uL Monocytes # (Auto) 0.75 K/uL Eosinophils # (Auto) 0.01 K/uL Basophils # (Auto) 0.01 K/uL RDW Standard Deviation 57.8 fL RDW Coefficient of Variation 21.4 % Immature Granulocyte % (Auto) 2.6 % Immature Granulocyte # (Auto) 0.37 K/uL Nucleated RBC Absolute Count (auto) 0.03 K/uL Nucleated Red Blood Cells % 0.2 % Toxic Granulation 1+ Poikilocytosis PRESENT Anisocytosis PRESENT Sodium Level 139 mmol/L Potassium Level 3.5 mmol/L Chloride Level 109 mmol/L Carbon Dioxide Level 23 mmol/L Anion Gap 7.0 mmol/L Blood Urea Nitrogen 46 mg/dl Creatinine 2.04 mg/dl Est Creatinine Clear Calc Drug Dose 31.3 ml/min Estimated GFR () 30.2 Estimated GFR (Non- 26.0 BUN/Creatinine Ratio 22.6 Random Glucose 196 mg/dl Calcium Level 7.2 mg/dl Total Bilirubin 0.7 mg/dl Aspartate Amino Transf (AST/SGOT) 13 U/L Alanine Aminotransferase (ALT/SGPT) 14 U/L Alkaline Phosphatase 135 U/L Total Protein 4.9 gm/dl Albumin 1.5 gm/dl Globulin 3.4 gm/dl Albumin/Globulin Ratio 0.4 Blood Gas Sample Site L Radial Bedside Blood Gas pH (LAB) 7.38 Bedside Blood Gas pCO2 (LAB) 36 mmHg Bedside Blood Gas pO2 (LAB) 77 mmHg Bedside Blood Gas HCO3 (LAB) 21 meq/L Bedside Blood Gas Total CO2 22 mEq/l Bedside Blood Gas Base Excess (LAB) -4.0 meq/L Bedside Blood Gas O2 Saturation 95.0 % Andrae Test Pass Oxygen Delivery Device Ventilator Bedside Oxygen Rate (breaths/min) 30 Bedside FiO2 60 % Blood Gas PEEP 10 Prothrombin Time 12.1 SECONDS Prothromb Time International Ratio 1.2 Activated Partial Thromboplast Time 32.6 SECONDS Partial Thromboplastin Ratio 1.3 Bedside Glucose 185 mg/dl Test 02/02/17 13:06 02/02/17 13:07 02/02/17 16:43 02/02/17 17:27 Absolute Reticulocyte Count 0.02 10^6/uL Percent Reticulocyte Count 0.6 % Troponin I 0.033 ng/ml Pro-B-Type Natriuretic Peptide > 74496 pg/ml Lactic Acid Level 2.2 mmol/L Random Cortisol 21.22 mcg/dl Activated Partial Thromboplast Time 65.8 SECONDS Partial Thromboplastin Ratio 2.5 Bedside Glucose 164 mg/dl Test 02/02/17 18:23 02/02/17 18:41 02/02/17 20:09 02/02/17 20:25 Bedside Glucose 181 mg/dl 178 mg/dl Bedside Glucose (other) 177 mg/dl Troponin I 0.022 ng/ml Test 02/02/17 21:22 02/02/17 22:14 02/02/17 23:03 02/03/17 00:04 Bedside Glucose (other) 181 mg/dl 175 mg/dl 171 mg/dl 166 mg/dl Test 02/03/17 01:05 Bedside Glucose (other) 162 mg/dl
[2017-02-03 04:14] LABS: MEAN CORPUSCULAR HGB CONC 31.7 g/dl (32-36)
[2017-02-03 04:20] LABS: HEMATOCRIT 28.1 % (37-47); HEMOGLOBIN 8.9 g/dL (12.0-16.0); MEAN CELL VOLUME 86.2 fL (80-100); MEAN CORPUSCULAR HEMOGLOBIN 27.3 pg (25-34); RED CELL DISTRIBUTION WIDTH CV 20.7 % (11.5-14.5); RED CELL DISTRIBUTION WIDTH SD 59.7 fL (36.4-46.3); WHITE BLOOD COUNT 15.55 K/uL (4.8-10.8)
[2017-02-03 04:37] LABS: PTT PATIENT 53.3 SECONDS (21.0-31.0)
[2017-02-03 04:51] LABS: BLOOD UREA NITROGEN 51 mg/dl (7-18); CALCIUM 7.7 mg/dl (8.5-10.1); CARBON DIOXIDE 25 mmol/L (21-32); GLUCOSE 141 mg/dl (70-99); PHOSPHORUS 3.1 mg/dl (2.5-4.9); SODIUM 138 mmol/L (136-145)
[2017-02-03 05:04] LABS: POTASSIUM 2.9 mmol/L (3.5-5.1)
[2017-02-03 05:19] LABS: MEAN PLATELET VOLUME 10.6 fL (7.4-10.4); PLATELET COUNT 81 K/uL (130-400)
[2017-02-03] MEDS: LEVOTHYROXINE 100 MCG TAB PO SCH (05:44)
[2017-02-03] MEDS: INSULIN ASPART 100 UNITS/ML 3 ML PEN SC SCH ×2 (06:00)
[2017-02-03 06:45] LABS: HEMOGLOBIN A1C 6.6 % (4.5-5.6)
--- NOTE | 2017-02-03 07:25 | DIAGNOSTIC IMAGING REPORT ---
CHEST ONE VIEW PORTABLE CLINICAL HISTORY: 61 years-old Female presenting with Intubated. TECHNIQUE: Portable upright AP view of the chest was obtained. COMPARISON: 02/02/2017. FINDINGS: Endotracheal tube terminates less than 2 cm from the gracy. Left internal jugular central venous catheter terminates in the right atrium. Right internal jugular Mediport terminates near the IJ subclavian confluence. Nasogastric tube descends below the diaphragm. Atherosclerosis of aortic arch. Moderately enlarged cardiac silhouette. Persistent patchy bilateral pulmonary opacities. Numerous external leads overlie the chest and the great image quality. Osseous structures normal. Cholecystectomy clips noted. IMPRESSION: 1. Endotracheal tube now less than 2 cm from the gracy. Remaining lines and tubes unchanged in position. 2. Cardiomegaly. 3. Unchanged bilateral patchy pulmonary opacities. Electronically signed by: Devaughn Ozuna M.D. 02/03/2017 7:24 AM Dictated Date/Time: 02/03/2017 7:22 AM
[2017-02-03] MEDS ORDERED: NURSING VERBAL MED ORDER ONE ×3 (09:00→18:15)
[2017-02-03] MEDS ORDERED: FUROSEMIDE INJ 40 MG in SYRINGE 0 ML IV SCH (09:15)
[2017-02-03] MEDS: SODIUM BICARBONATE 650 MG TAB PO SCH ×3 (09:19→20:33)
[2017-02-03] MEDS: GABAPENTIN 100 MG CAP PO SCH ×3 (09:19→20:34)
[2017-02-03] MEDS: HYDROCORTISONE IV 100 MG in SYRINGE 0 ML IV SCH ×2 (09:20→18:22)
[2017-02-03] MEDS: CHLORHEXIDINE GLUCONATE 0.12% 480 ML MT SCH (09:20)
[2017-02-03] MEDS: PANTOprazole INJ 40 MG in SYRINGE 0 ML IV SCH ×2 (09:21→20:33)
[2017-02-03] MEDS ORDERED: POTASSIUM CHLORIDE 20 MEQ/15 ML UDC NG ONE (09:30)
[2017-02-03] MEDS ORDERED: SODIUM CHLORIDE 0.9% IV ONE (09:30)
[2017-02-03] MEDS ORDERED: POTASSIUM ACETATE IV ONE (09:30)
--- NOTE | 2017-02-03 10:59 | Pharmacy Progress Note ---
Glycemic Control Progress Note Date of Service Feb 03, 2017. Scope Glycemic Pharmacist consulted for glycemic control to write orders per [facility] inpatient glycemic control protocol. Objective Accuchecks BSG (last 24hrs): Test 02/02/17 11:54 02/02/17 17:27 02/02/17 18:23 02/02/17 18:41 Bedside Glucose 185 mg/dl (70-90) 164 mg/dl (70-90) 181 mg/dl (70-90) 178 mg/dl (70-90) Test 02/03/17 04:03 Random Glucose 141 mg/dl (70-99) HbA1c: Test 02/03/17 04:03 Hemoglobin A1c 6.6 % (4.5-5.6) H Recent Pertinent Medications The patient is currently receiving: * Insulin gtt Outpatient Anti-Diabetic Meds None Assessment & Plan ASSESSMENT: 02/02/17 * ADA & AACE recommend a goal blood sugar range 140-180 mg/dl for the majority of critically ill & non-critically ill patients. * Ms Elaine is a 61 y/o F with a PMH of endometrial CA, gastric bypass surgery, and factor V Leiden who presented with generalized weakness and VAUGHN. She was found to have a bacteremia with a relatively sensitive E coli. She has been receiving treatment with cefepime. Last night, the patient developed respiratory failure and necessitated intubation. * Ms Elaine has had two consecutive blood sugars over 180 mg/dL therefore according to guidelines insulin infusion will be started. Based upon HbA1C patient may need additional coverage after vasopressors and infection are overcome. 02/03/17 * Remains on insulin gtt - was running at ~2 units/hr earlier today but now on hold 2nd BSG's below goal range * Changes to stressors: added hydrocortisone 100 mg IV q8h * Patient to remain on insulin gtt 2nd addition of steroids (per Dr. Lugo). OK to broaden goal range to help decrease rate changes/checks/dextrose administration PLAN FOR INPATIENT GLYCEMIC CONTROL: * Continue IV insulin infusion * Broaden Goal Range 120 - 180 mg/dl * Please note that the plan above was derived based on current level of insulin resistance and hospital stress. These recommendations are appropriate for inpatient admission only. Plan of care upon discharge will need to be reassessed to avoid potential outpatient hypo/hyperglycemia. Thank you.
[2017-02-03] MEDS: CEFTRIAXONE SOD INJ 2000 MG in DEXTROSE 5% 50ML IV SCH (15:29)
--- NOTE | 2017-02-03 18:05 | Critical Care Progress Note ---
Critical Care Progress Note Date of Service Feb 03, 2017. ICU Day ICU Day Number: [address] Lugo Clementine Is a 61-year-old lady that had acute respiratory failure secondary to cardiogenic shock and pulmonary edema. She is currently intubated on mechanical ventilation. She is a history of endometrial carcinoma and received one course of chemotherapy to date. She follows with Dr. Roberto García. She further has a history of gastric bypass surgery in 2006 complicated by wound infection and malnutrition. Related that she has nonhealing surgical wounds for the past 10 years. She follows at the wound clinic and [facility]. 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 She was not on anticoagulant treatment as an outpatient. She presented to [facility] on 01/29/17 with dehydration secondary nausea and vomiting and septic shock. She was found to have acute pyelonephritis with UTI secondary to Escherichia coli and was treated with IV cefepime. Patient has been hypotensive requiring levo fed. When attempting to titrate off that today her blood pressure dropped to 80 systolically. She does have a history of cardiomyopathy with an ejection fraction of 25-30% secondary to global hypokinesis. There is also notation of moderate to severe right ventricular hypokinesis as well. Objective GENERAL : Currently intubated and sedated EYES: No icterus, gaze conjugate. PERRL NOSE: No evidence of epistaxis MOUTH: No lesions or candidiasis. Endotracheal tube in place. No evidence of lesions to the lip or tongue with limited examination NECK: No JVD or stridor appreciated. No evidence of air leak LUNGS: Coarse rales at bases. Upper lung das clear HEART: Regular, rate controlled in the 80s ABDOMEN: Soft, NT, ND, BS Present EXTREMITIES: No LE edema, pedal pulses intact NEURO: Currently sedated and intubated on mechanical ventilation. Current SOFA Score SOFA Score Response (Comments) Value PaO2/FiO2 (mmHg) < 200 3 SaO2 / FIO2 221 - 301 1 Platelets (x10) < 150 1 Bilirubin (mg/dL) < 1.2 0 [place] Coma Score 13 - 14 1 Level of Hypotension Dopamine > 5 mcq or Epi < 0.1 mcq 3 Creatinine (mg/dL) 2.0 - 3.4 2 Total 11 Assessment & Plan RESPIRATORY FAILURE Secondary cardiogenic shock, ARDs, pulmonary edema Currently on pressure control 26/20+10/40% Lasix 40 mg IV 1 today Cumulative I&Os pos 6 L Chest x-ray with unchanged bilateral patchy pulmonary opacities Continues on antibiotic therapy for pyelonephritis including ceftriaxone No sputum sample collected Blood cultures with Escherichia coli. Urine culture with Escherichia coli ID Pyelonephritis with pancytopenia Continue ceftriaxone per new order by Dr. Lugo 02/03/17 Previously on cefepime 2 g every 12 hours IV Lactic acid decreased from a high of 4.7 to1.5 today Continues on norepinephrine for hypotension ID consulted - appreciate Dr. Rene's input Discussed total treatment course with Dr. Rene tomorrow HEME Drop in hemoglobin today from 10.3-8.9 No clear source of bleeding Pancytopenia secondary to chemotherapy for endometrial cancer Follow serial labs FACTOR V LEYDEN DEFICIENCY No prior history of thrombotic disease Has not been on chronic outpatient anticoagulation Started on heparin drip secondary to sepsis Lower extremity duplex negative for DVT Unable to scan for pulmonary embolus secondary to acute kidney failure RENAL Pyelonephritis Renal ultrasound with no hydronephrosis IV antibiotics Creatinine 1.9 Hydrocortisone 100 mg every 8 hours IV ELECTROLYTES Potassium 2.9 - replete with 40 mg of potassium down the NG tube and 40 mEq of potassium acetate IV No arrhythmias on telemetry Currently sinus rhythm with a rate in the 80s Follow serial labs IV ACCESS Right triple-lumen IJ catheter NUTRITION Currently receiving Peptamen VHP At goal Appreciate nutrition consult and input DVT PROPHYLAXIS Lower extremity venous Doppler with no evidence of acute DVT Continue heparin drip per weight based protocol SCDs CCT: 40 minutes Thank you for including us in the care of this patient. Please refer to Dr. Lugo's addendum for further recommendations I have personally evaluated and examined this patient. I agree with assessment and plan of Narendra Vaughan PA-C. Started hydrocortisone for relative adrenal insufficiency and continued requirements for vasoactive medication. Decreasing FiO2 requirements, continue to decrease respiratory rate. Anticipate spontaneous weakening spontaneous breathing trial tomorrow. I have updated the patient's daughter regarding her condition. Consults & Procedures Consultants: Oncology - Dr. García Procedures: Endotracheal intubation 02/01/2017 RIJ 3L CVC 02/01/2017 Data Medications: Current Inpatient Medications Medications (Trade) Dose Ordered Sig/Alek Route Start Time Stop Time Status Last Admin Dose Admin Prochlorperazine Edisylate 5 mg/ Syringe 5 ml @ 5 mls/min Q6H PRN IV 01/29/17 13:00 02/28/17 12:59 Levothyroxine Sodium (Synthroid Tab) 100 mcg DAILYBB PO 01/30/17 06:00 03/01/17 05:59 02/03/17 05:44 100 MCG Lorazepam (Ativan Tab) 0.5 mg BID PRN PO 01/29/17 13:15 02/28/17 13:14 02/01/17 04:12 0.5 MG Sertraline HCl (Zoloft Tab) 200 mg HS PO 01/29/17 21:00 02/28/17 20:59 02/02/17 22:03 200 MG Tramadol HCl (Ultram Tab) 50 mg Q6H PRN PO 01/29/17 13:15 02/28/17 13:14 01/31/17 12:30 50 MG Gabapentin (Neurontin Cap) 200 mg TID PO 01/30/17 09:00 02/28/17 13:59 02/03/17 15:29 200 MG Sodium Bicarbonate (Sodium Bicarbonate Tab) 1,300 mg TID PO 02/01/17 21:00 03/03/17 20:59 02/03/17 15:29 1,300 MG Norepinephrine Bitartrate 8 mg/ Dextrose 508 ml @ 0 mls/hr Q0M PRN IV 02/01/17 15:13 03/03/17 15:12 02/03/17 01:58 29.6 MLS/HR Chlorhexidine Gluconate (Peridex Oral Soln) 15 ml DAILY MT 02/02/17 09:00 03/04/17 08:59 02/03/17 09:20 15 ML Pantoprazole Sodium 40 mg/ Syringe 10 ml @ 5 mls/min DAILY@09,21 IV 02/01/17 21:00 03/03/17 20:59 02/03/17 09:21 5 MLS/MIN Ipratropium [place] (Atrovent Hfa Inhaler) 4 puffs Q6R INH 02/01/17 21:05 03/03/17 21:04 02/03/17 14:07 4 PUFFS Levalbuterol (Xopenex Hfa Inhaler) 4 puffs Q6R INH 02/01/17 21:05 03/03/17 21:04 02/03/17 14:07 4 PUFFS Heparin Sodium/ Dextrose 500 ml @ 16 mls/hr Q24H PRN IV 02/02/17 09:45 03/04/17 09:44 02/02/17 09:55 16 MLS/HR Midazolam HCl 250 ml @ 0 mls/hr Q0M PRN IV 02/02/17 10:00 03/04/17 09:59 02/02/17 16:50 4 MLS/HR Fentanyl Citrate 250 ml @ 0 mls/hr Q0M PRN IV 02/02/17 10:00 02/16/17 09:59 02/02/17 16:50 1 MLS/HR Miscellaneous Information (Consult Glycemic Management Pharmacy) 1 ea UD PRN N/A 02/02/17 13:44 03/04/17 13:43 Enteral Nutritional Formula (Peptamen Intense VHP) 1,000 ml UD PRN OG 02/02/17 13:30 03/04/17 13:29 02/02/17 15:47 1,000 ML Insulin Human Regular 250 units/ Sodium Chloride 252.5 ml @ 0 mls/hr Q24H IV 02/02/17 15:30 03/04/17 15:29 02/02/17 15:34 2.4 MLS/HR Glucose (Glucose 40% Gel) UD PRN PO 02/02/17 15:15 03/04/17 15:14 Glucose (Glucose Chew Tab) 1 tabs UD PRN PO 02/02/17 15:15 03/04/17 15:14 Dextrose (Dextrose 50% 50ML Syringe) 50 ml UD PRN IV 02/02/17 15:15 03/04/17 15:14 02/03/17 09:09 50 ML Glucagon (Glucagon Inj) 1 mg UD PRN SQ 02/02/17 15:15 03/04/17 15:14 Acetaminophen (Tylenol Soln) 650 mg Q4H PRN PO 02/02/17 19:00 03/04/17 18:59 Hydrocortisone Sodium Succinate 100 mg/Syringe 2 ml @ 4 mls/min Q8H IV 02/03/17 09:00 18 08:59 02/03/17 09:20 4 MLS/MIN Ceftriaxone Sodium 2000 mg/ Dextrose 70 ml @ 140 mls/hr DAILY@1400 IV 02/03/17 14:00 02/17/17 13:59 02/03/17 15:29 140 MLS/HR Miscellaneous Information (Pending Order) 1 ea Q2H PRN N/A 02/03/17 15:00 03/05/17 11:44 Vital Signs: Date Time Temp Pulse Resp B/P (MAP) Pulse Ox O2 Delivery O2 Flow Rate FiO2 02/03/17 16:00 Mechanical Ventilator 40 02/03/17 16:00 40 02/03/17 14:08 40 02/03/17 12:00 40 02/03/17 12:00 36.8 77 26 111/72 (85) 95 Mechanical Ventilator 40 02/03/17 12:00 Mechanical Ventilator 40 02/03/17 11:02 40 02/03/17 10:00 81 26 106/65 (79) 94 Mechanical Ventilator 40 76 02/03/17 08:38 40 02/03/17 08:00 40 02/03/17 08:00 37.1 76 30 117/69 (85) 96 Mechanical Ventilator 40 02/03/17 08:00 Mechanical Ventilator 40 02/03/17 07:48 40 02/03/17 06:21 50 02/03/17 06:01 70 30 122/71 (77) 97 02/03/17 05:46 73 30 116/72 (85) 97 02/03/17 05:31 75 30 112/75 (85) 97 02/03/17 05:16 75 30 118/71 (77) 97 02/03/17 05:01 73 30 109/68 (75) 97 02/03/17 04:46 72 30 106/70 (76) 96 02/03/17 04:31 71 30 109/72 (84) 96 02/03/17 04:16 73 30 108/70 (83) 96 02/03/17 04:00 40 02/03/17 04:00 Mechanical Ventilator 40 02/03/17 04:00 36.5 02/03/17 03:46 75 30 104/69 (74) 96 02/03/17 03:31 77 30 108/67 (72) 96 02/03/17 03:16 80 30 117/78 (87) 96 02/03/17 03:01 77 30 130/74 (83) 97 02/03/17 03:00 82 30 96 02/03/17 02:46 78 30 120/73 (85) 97 02/03/17 02:31 79 30 130/76 (86) 97 02/03/17 02:30 78 30 97 02/03/17 02:18 50 02/03/17 02:16 84 30 125/75 (81) 96 02/03/17 02:01 78 30 125/72 (87) 98 02/03/17 01:47 80 30 120/73 (91) 93 02/03/17 01:45 80 30 96/69 (81) 92 02/03/17 01:16 74 31 112/83 (95) 96 02/03/17 01:01 72 0 118/69 (79) 95 02/03/17 01:00 73 27 95 02/03/17 00:46 72 30 115/68 (78) 97 02/03/17 00:31 72 28 112/70 (79) 96 02/03/17 00:30 75 27 95 02/03/17 00:16 73 0 114/70 (78) 96 02/03/17 00:01 73 25 112/72 (89) 96 02/03/17 00:00 Mechanical Ventilator 40 02/03/17 00:00 40 02/03/17 00:00 37.0 02/02/17 23:46 74 30 110/67 (75) 95 17 23:31 74 30 111/71 (91) 96 02/02/17 23:30 74 30 96 02/02/17 23:27 50 02/02/17 23:16 77 30 109/71 (77) 95 02/02/17 23:01 76 30 110/73 (79) 96 17 23:00 78 30 96 17 22:31 84 30 116/71 (76) 96 17 22:16 85 30 93/60 (66) 96 1817 22:02 86 30 106/66 (77) 93 1817 21:46 72 26 110/68 (91) 95 18/17 21:31 77 30 106/68 (83) 95 18/17 21:16 73 30 101/66 (75) 94 18/17 21:01 72 30 103/67 (76) 95 12/18/17 20:51 50 02/02/17 20:46 73 30 104/67 (77) 95 02/02/17 20:31 75 30 105/65 (69) 95 02/02/17 20:16 78 30 101/69 (75) 94 02/02/17 20:00 37.1 02/02/17 20:00 40 02/02/17 20:00 Mechanical Ventilator 40 02/02/17 18:01 37.3 76 30 108/72 (84) 100 40 79 02/02/17 17:46 81 30 88/60 (69) 100 40 02/02/17 17:36 80 30 99/67 (78) 100 40 02/02/17 17:35 50 02/02/17 17:31 36.9 77 30 89/63 (72) 100 40 73 02/02/17 17:16 80 30 90/62 (71) 100 50 Laboratory Results: Last 24 Hours Test 02/02/17 17:27 02/02/17 18:23 02/02/17 18:41 02/02/17 20:09 Bedside Glucose 164 mg/dl 181 mg/dl 178 mg/dl Bedside Glucose (other) 177 mg/dl Test 02/02/17 20:25 02/02/17 21:22 02/02/17 22:14 02/02/17 23:03 Troponin I 0.022 ng/ml Bedside Glucose (other) 181 mg/dl 175 mg/dl 171 mg/dl Test 02/03/17 00:04 02/03/17 01:05 02/03/17 03:16 02/03/17 04:03 Bedside Glucose (other) 166 mg/dl 162 mg/dl 142 mg/dl Activated Partial Thromboplast Time 53.3 SECONDS Partial Thromboplastin Ratio 2.1 Sodium Level 138 mmol/L Potassium Level 2.9 mmol/L Chloride Level 107 mmol/L Carbon Dioxide Level 25 mmol/L Anion Gap 6.0 mmol/L Blood Urea Nitrogen 51 mg/dl Creatinine 1.90 mg/dl Est Creatinine Clear Calc Drug Dose 32.9 ml/min Estimated GFR () 32.9 Estimated GFR (Non- 28.4 BUN/Creatinine Ratio 26.9 Random Glucose 141 mg/dl Estimated Average Glucose 143 mg/dl Hemoglobin A1c 6.6 % Calcium Level 7.7 mg/dl Phosphorus Level 3.1 mg/dl Magnesium Level 1.9 mg/dl Troponin I < 0.015 ng/ml Procalcitonin 4.63 ng/ml Test 02/03/17 04:04 02/03/17 05:29 02/03/17 05:49 02/03/17 06:31 White Blood Count 15.55 K/uL Red Blood Count 3.26 M/uL Hemoglobin 8.9 g/dL Hematocrit 28.1 % Mean Corpuscular Volume 86.2 fL Mean Corpuscular Hemoglobin 27.3 pg Mean Corpuscular Hemoglobin Concent 31.7 g/dl RDW Standard Deviation 59.7 fL RDW Coefficient of Variation 20.7 % Platelet Count 81 K/uL Mean Platelet Volume 10.6 fL Platelet Estimate DECREASED Bedside Glucose (other) 135 mg/dl 124 mg/dl Blood Gas Sample Site R Radial Bedside Blood Gas pH (LAB) 7.42 Bedside Blood Gas pCO2 (LAB) 37 mmHg Bedside Blood Gas pO2 (LAB) 81 mmHg Bedside Blood Gas HCO3 (LAB) 24 meq/L Bedside Blood Gas Total CO2 25 mEq/l Bedside Blood Gas Base Excess (LAB) -1.0 meq/L Bedside Blood Gas O2 Saturation 96.0 % Andrae Test Pass Oxygen Delivery Device Ventilator Bedside Oxygen Rate (breaths/min) 30 Bedside FiO2 40 % Blood Gas PEEP 10 Test 02/03/17 07:58 02/03/17 08:26 02/03/17 09:03 02/03/17 09:04 Bedside Glucose (other) 102 mg/dl 95 mg/dl 86 mg/dl Lactic Acid Level 1.5 mmol/L Test 02/03/17 09:40 02/03/17 10:27 02/03/17 11:12 02/03/17 12:14 Bedside Glucose (other) 139 mg/dl 115 mg/dl 106 mg/dl 104 mg/dl Test 02/03/17 13:27 02/03/17 15:42 Bedside Glucose (other) 98 mg/dl 93 mg/dl
[2017-02-03] MEDS: FENTANYL 1250MCG/250ML NSS IV PRN (18:44)
--- NOTE | 2017-02-03 18:54 | Progress Note ---
Medicine Progress Note Date & Time of Visit: Feb 03, 2017 at 10:28. Subjective Pt was seen and examined Sedated and intubated on vent support On Pressor Objective Last 8 Hrs Date Time Temp Pulse Resp B/P (MAP) Pulse Ox O2 Delivery O2 Flow Rate FiO2 02/03/17 17:07 40 02/03/17 16:00 Mechanical Ventilator 40 02/03/17 16:00 36.9 93 26 102/57 (72) 95 Mechanical Ventilator 40 02/03/17 16:00 40 02/03/17 14:08 40 02/03/17 14:00 87 26 93/68 (76) 96 Mechanical Ventilator 40 02/03/17 12:00 40 02/03/17 12:00 36.8 77 26 111/72 (85) 95 Mechanical Ventilator 40 02/03/17 12:00 Mechanical Ventilator 40 02/03/17 11:02 40 Physical Exam: General- Intubated on vent support Head- atraumatic Eyes- PERRL ENT- Intubated Neck- no JVD Lungs- Coarse BS Heart- regular rhythm Abdomen- normal bowel sounds Neuro- Sedated Skin- warm & dry Laboratory Results: Last 24 Hours Test 02/02/17 18:41 02/02/17 20:09 02/02/17 20:25 02/02/17 21:22 Bedside Glucose 178 mg/dl Bedside Glucose (other) 177 mg/dl 181 mg/dl Troponin I 0.022 ng/ml Test 02/02/17 22:14 02/02/17 23:03 02/03/17 00:04 02/03/17 01:05 Bedside Glucose (other) 175 mg/dl 171 mg/dl 166 mg/dl 162 mg/dl Test 02/03/17 03:16 02/03/17 04:03 02/03/17 04:04 02/03/17 05:29 Bedside Glucose (other) 142 mg/dl 135 mg/dl Activated Partial Thromboplast Time 53.3 SECONDS Partial Thromboplastin Ratio 2.1 Sodium Level 138 mmol/L Potassium Level 2.9 mmol/L Chloride Level 107 mmol/L Carbon Dioxide Level 25 mmol/L Anion Gap 6.0 mmol/L Blood Urea Nitrogen 51 mg/dl Creatinine 1.90 mg/dl Est Creatinine Clear Calc Drug Dose 32.9 ml/min Estimated GFR () 32.9 Estimated GFR (Non- 28.4 BUN/Creatinine Ratio 26.9 Random Glucose 141 mg/dl Estimated Average Glucose 143 mg/dl Hemoglobin A1c 6.6 % Calcium Level 7.7 mg/dl Phosphorus Level 3.1 mg/dl Magnesium Level 1.9 mg/dl Troponin I < 0.015 ng/ml Procalcitonin 4.63 ng/ml White Blood Count 15.55 K/uL Red Blood Count 3.26 M/uL Hemoglobin 8.9 g/dL Hematocrit 28.1 % Mean Corpuscular Volume 86.2 fL Mean Corpuscular Hemoglobin 27.3 pg Mean Corpuscular Hemoglobin Concent 31.7 g/dl RDW Standard Deviation 59.7 fL RDW Coefficient of Variation 20.7 % Platelet Count 81 K/uL Mean Platelet Volume 10.6 fL Platelet Estimate DECREASED Test 02/03/17 05:49 02/03/17 06:31 02/03/17 07:58 02/03/17 08:26 Blood Gas Sample Site R Radial Bedside Blood Gas pH (LAB) 7.42 Bedside Blood Gas pCO2 (LAB) 37 mmHg Bedside Blood Gas pO2 (LAB) 81 mmHg Bedside Blood Gas HCO3 (LAB) 24 meq/L Bedside Blood Gas Total CO2 25 mEq/l Bedside Blood Gas Base Excess (LAB) -1.0 meq/L Bedside Blood Gas O2 Saturation 96.0 % Andrae Test Pass Oxygen Delivery Device Ventilator Bedside Oxygen Rate (breaths/min) 30 Bedside FiO2 40 % Blood Gas PEEP 10 Bedside Glucose (other) 124 mg/dl 102 mg/dl 95 mg/dl Test 02/03/17 09:03 02/03/17 09:04 02/03/17 09:40 02/03/17 10:27 Lactic Acid Level 1.5 mmol/L Bedside Glucose (other) 86 mg/dl 139 mg/dl 115 mg/dl Test 02/03/17 11:12 02/03/17 12:14 02/03/17 13:27 02/03/17 15:42 Bedside Glucose (other) 106 mg/dl 104 mg/dl 98 mg/dl 93 mg/dl Test 02/03/17 18:14 Assessment & Plan ACUTE RESPIRATORY FAILURE Possible related to ARDS, pulmonary edema Intubated on vent support Chest x-ray with unchanged bilateral patchy pulmonary opacities Unable to get CTA chest due to VAUGHN Received IV lasix today Monitor I/O Continue IV Rocephin Repeat blood cx no growth SEPSIS Pyelonephritis/bacteremia Blood cultures and Urine culture grew Escherichia coli Elevated lactic acid on admission, now normal Continue pressor Repeat cx no growth On Rocephin IV ID on board ANEMIA Hemoglobin today 8.9 No clear source of bleeding Pancytopenia secondary to chemotherapy for endometrial cancer Monitor CBC FACTOR V LEYDEN DEFICIENCY No prior history of thrombotic disease Has not been on chronic outpatient anticoagulation on heparin drip secondary to sepsis Lower extremity duplex negative for DVT VAUGHN Renal ultrasound showed no hydronephrosis Creatinine 1.9 today Continue monitor BMP closely ELECTROLYTES IMBALANCE K 2.9 today K replaced Continue monitor BMP DVT PX on heparin drip CODE STATUS FULL CODE Current Inpatient Medications: Current Inpatient Medications Medications (Trade) Dose Ordered Sig/Alek Route Start Time Stop Time Status Last Admin Dose Admin Prochlorperazine Edisylate 5 mg/ Syringe 5 ml @ 5 mls/min Q6H PRN IV 01/29/17 13:00 02/28/17 12:59 Levothyroxine Sodium (Synthroid Tab) 100 mcg DAILYBB PO 01/30/17 06:00 03/01/17 05:59 02/03/17 05:44 100 MCG Lorazepam (Ativan Tab) 0.5 mg BID PRN PO 01/29/17 13:15 02/28/17 13:14 02/01/17 04:12 0.5 MG Sertraline HCl (Zoloft Tab) 200 mg HS PO 01/29/17 21:00 02/28/17 20:59 02/02/17 22:03 200 MG Tramadol HCl (Ultram Tab) 50 mg Q6H PRN PO 01/29/17 13:15 02/28/17 13:14 01/31/17 12:30 50 MG Gabapentin (Neurontin Cap) 200 mg TID PO 01/30/17 09:00 02/28/17 13:59 02/03/17 15:29 200 MG Sodium Bicarbonate (Sodium Bicarbonate Tab) 1,300 mg TID PO 02/01/17 21:00 03/03/17 20:59 02/03/17 15:29 1,300 MG Norepinephrine Bitartrate 8 mg/ Dextrose 508 ml @ 0 mls/hr Q0M PRN IV 02/01/17 15:13 03/03/17 15:12 02/03/17 01:58 29.6 MLS/HR Chlorhexidine Gluconate (Peridex Oral Soln) 15 ml DAILY MT 02/02/17 09:00 03/04/17 08:59 02/03/17 09:20 15 ML Pantoprazole Sodium 40 mg/ Syringe 10 ml @ 5 mls/min DAILY@09,21 IV 02/01/17 21:00 03/03/17 20:59 02/03/17 09:21 5 MLS/MIN Ipratropium [place] (Atrovent Hfa Inhaler) 4 puffs Q6R INH 02/01/17 21:05 03/03/17 21:04 02/03/17 14:07 4 PUFFS Levalbuterol (Xopenex Hfa Inhaler) 4 puffs Q6R INH 02/01/17 21:05 03/03/17 21:04 02/03/17 14:07 4 PUFFS Heparin Sodium/ Dextrose 500 ml @ 16 mls/hr Q24H PRN IV 02/02/17 09:45 03/04/17 09:44 02/02/17 09:55 16 MLS/HR Midazolam HCl 250 ml @ 0 mls/hr Q0M PRN IV 02/02/17 10:00 03/04/17 09:59 02/02/17 16:50 4 MLS/HR Fentanyl Citrate 250 ml @ 0 mls/hr Q0M PRN IV 02/02/17 10:00 02/16/17 09:59 02/02/17 16:50 1 MLS/HR Miscellaneous Information (Consult Glycemic Management Pharmacy) 1 ea UD PRN N/A 02/02/17 13:44 03/04/17 13:43 Enteral Nutritional Formula (Peptamen Intense VHP) 1,000 ml UD PRN OG 02/02/17 13:30 03/04/17 13:29 02/02/17 15:47 1,000 ML Insulin Human Regular 250 units/ Sodium Chloride 252.5 ml @ 0 mls/hr Q24H IV 02/02/17 15:30 03/04/17 15:29 02/02/17 15:34 2.4 MLS/HR Glucose (Glucose 40% Gel) UD PRN PO 02/02/17 15:15 03/04/17 15:14 Glucose (Glucose Chew Tab) 1 tabs UD PRN PO 02/02/17 15:15 03/04/17 15:14 Dextrose (Dextrose 50% 50ML Syringe) 50 ml UD PRN IV 02/02/17 15:15 03/04/17 15:14 02/03/17 09:09 50 ML Glucagon (Glucagon Inj) 1 mg UD PRN SQ 02/02/17 15:15 03/04/17 15:14 Acetaminophen (Tylenol Soln) 650 mg Q4H PRN PO 02/02/17 19:00 03/04/17 18:59 Hydrocortisone Sodium Succinate 100 mg/Syringe 2 ml @ 4 mls/min Q8H IV 02/03/17 09:00 03/05/17 08:59 02/03/17 18:22 4 MLS/MIN Ceftriaxone Sodium 2000 mg/ Dextrose 70 ml @ 140 mls/hr DAILY@1400 IV 02/03/17 14:00 02/17/17 13:59 02/03/17 15:29 140 MLS/HR Miscellaneous Information (Pending Order) 1 ea Q2H PRN N/A 02/03/17 15:00 03/05/17 11:44 Miscellaneous Information (Nursing Verbal Med Order) 1 ea ONE ONCE N/A 02/03/17 18:15 02/03/17 18:16 UNV
[2017-02-03 19:46] LABS: CREATININE 1.67 mg/dl (0.60-1.20)
[2017-02-03 19:57] LABS: POTASSIUM 3.9 mmol/L (3.5-5.1)
[2017-02-03] MEDS: SERTRALINE HCL 100 MG TAB PO SCH (20:33)
--- NOTE | 2017-02-03 21:19 | Infectious Disease Progress Nt ---
Progress Note Date of Service Feb 03, 2017. Subjective Pt evaluation today including: chart review, lab review, review of studies, conversation w/ life consultant, review of inpatient medication list Remains on ventilator. Levophed being titrated down. No fever. All Other Systems: Reviewed and Negative Medications Current Inpatient Medications Medications (Trade) Dose Ordered Sig/Alek Route Start Time Stop Time Status Last Admin Dose Admin Prochlorperazine Edisylate 5 mg/ Syringe 5 ml @ 5 mls/min Q6H PRN IV 01/29/17 13:00 02/28/17 12:59 Levothyroxine Sodium (Synthroid Tab) 100 mcg DAILYBB PO 01/30/17 06:00 03/01/17 05:59 02/03/17 05:44 100 MCG Lorazepam (Ativan Tab) 0.5 mg BID PRN PO 01/29/17 13:15 02/28/17 13:14 02/01/17 04:12 0.5 MG Sertraline HCl (Zoloft Tab) 200 mg HS PO 01/29/17 21:00 02/28/17 20:59 02/03/17 20:33 200 MG Tramadol HCl (Ultram Tab) 50 mg Q6H PRN PO 01/29/17 13:15 02/28/17 13:14 01/31/17 12:30 50 MG Gabapentin (Neurontin Cap) 200 mg TID PO 01/30/17 09:00 02/28/17 13:59 02/03/17 20:34 200 MG Sodium Bicarbonate (Sodium Bicarbonate Tab) 1,300 mg TID PO 02/01/17 21:00 03/03/17 20:59 02/03/17 20:33 1,300 MG Norepinephrine Bitartrate 8 mg/ Dextrose 508 ml @ 0 mls/hr Q0M PRN IV 02/01/17 15:13 03/03/17 15:12 02/03/17 01:58 29.6 MLS/HR Chlorhexidine Gluconate (Peridex Oral Soln) 15 ml DAILY MT 02/02/17 09:00 03/04/17 08:59 02/03/17 09:20 15 ML Pantoprazole Sodium 40 mg/ Syringe 10 ml @ 5 mls/min DAILY@ IV 02/01/17 21:00 1/16/18 20:59 02/03/17 20:33 5 MLS/MIN Ipratropium [place] (Atrovent Hfa Inhaler) 4 puffs Q6R INH 02/01/17 21:05 03/03/17 21:04 02/03/17 19:35 4 PUFFS Levalbuterol (Xopenex Hfa Inhaler) 4 puffs Q6R INH 02/01/17 21:05 03/03/17 21:04 02/03/17 19:35 4 PUFFS Heparin Sodium/ Dextrose 500 ml @ 16 mls/hr Q24H PRN IV 02/02/17 09:45 03/04/17 09:44 02/02/17 09:55 16 MLS/HR Midazolam HCl 250 ml @ 0 mls/hr Q0M PRN IV 02/02/17 10:00 03/04/17 09:59 02/02/17 16:50 4 MLS/HR Fentanyl Citrate 250 ml @ 0 mls/hr Q0M PRN IV 02/02/17 10:00 02/16/17 09:59 02/03/17 18:44 10 MLS/HR Miscellaneous Information (Consult Glycemic Management Pharmacy) 1 ea UD PRN N/A 02/02/17 13:44 03/04/17 13:43 Enteral Nutritional Formula (Peptamen Intense VHP) 1,000 ml UD PRN OG 02/02/17 13:30 03/04/17 13:29 02/02/17 15:47 1,000 ML Insulin Human Regular 250 units/ Sodium Chloride 252.5 ml @ 0 mls/hr Q24H IV 02/02/17 15:30 03/04/17 15:29 02/02/17 15:34 2.4 MLS/HR Glucose (Glucose 40% Gel) UD PRN PO 02/02/17 15:15 03/04/17 15:14 Glucose (Glucose Chew Tab) 1 tabs UD PRN PO 02/02/17 15:15 03/04/17 15:14 Dextrose (Dextrose 50% 50ML Syringe) 50 ml UD PRN IV 02/02/17 15:15 03/04/17 15:14 02/03/17 09:09 50 ML Glucagon (Glucagon Inj) 1 mg UD PRN SQ 02/02/17 15:15 03/04/17 15:14 Acetaminophen (Tylenol Soln) 650 mg Q4H PRN PO 02/02/17 19:00 03/04/17 18:59 Hydrocortisone Sodium Succinate 100 mg/Syringe 2 ml @ 4 mls/min Q8H IV 02/03/17 09:00 03/05/17 08:59 02/03/17 18:22 4 MLS/MIN Ceftriaxone Sodium 2000 mg/ Dextrose 70 ml @ 140 mls/hr DAILY@1400 IV 02/03/17 14:00 02/17/17 13:59 02/03/17 15:29 140 MLS/HR Miscellaneous Information (Pending Order) 1 ea Q2H PRN N/A 02/03/17 15:00 03/05/17 11:44 Objective Vital Signs Date Time Temp Pulse Resp B/P (MAP) Pulse Ox O2 Delivery O2 Flow Rate FiO2 02/03/17 20:00 100 Mechanical Ventilator 40 02/03/17 20:00 40 02/03/17 20:00 36.9 02/03/17 19:35 40 02/03/17 18:31 74 26 115/70 (85) 100 Mechanical Ventilator 40 02/03/17 18:01 75 26 101/67 (78) 100 Mechanical Ventilator 40 02/03/17 17:46 77 26 94/65 (75) 100 Mechanical Ventilator 40 02/03/17 17:31 82 26 91/60 (70) 100 Mechanical Ventilator 40 02/03/17 17:19 87 26 88/54 (65) 99 Mechanical Ventilator 40 02/03/17 17:16 89 26 80/56 (64) 99 Mechanical Ventilator 40 02/03/17 17:07 40 02/03/17 17:00 92 26 89/57 (68) 96 Mechanical Ventilator 40 02/03/17 16:00 Mechanical Ventilator 40 02/03/17 16:00 36.9 93 26 102/57 (72) 95 Mechanical Ventilator 40 02/03/17 16:00 40 02/03/17 14:08 40 02/03/17 14:00 87 26 93/68 (76) 96 Mechanical Ventilator 40 02/03/17 12:00 40 02/03/17 12:00 36.8 77 26 111/72 (85) 95 Mechanical Ventilator 40 02/03/17 12:00 Mechanical Ventilator 40 02/03/17 11:02 40 02/03/17 10:00 81 26 106/65 (79) 94 Mechanical Ventilator 40 76 02/03/17 08:38 40 02/03/17 08:00 40 02/03/17 08:00 37.1 76 30 117/69 (85) 96 Mechanical Ventilator 40 02/03/17 08:00 Mechanical Ventilator 40 02/03/17 07:48 40 02/03/17 06:21 50 02/03/17 06:01 70 30 122/71 (77) 97 02/03/17 05:46 73 30 116/72 (85) 97 02/03/17 05:31 75 30 112/75 (85) 97 02/03/17 05:16 75 30 118/71 (77) 97 02/03/17 05:01 73 30 109/68 (75) 97 02/03/17 04:46 72 30 106/70 (76) 96 02/03/17 04:31 71 30 109/72 (84) 96 02/03/17 04:16 73 30 108/70 (83) 96 02/03/17 04:00 40 02/03/17 04:00 Mechanical Ventilator 40 02/03/17 04:00 36.5 02/03/17 03:46 75 30 104/69 (74) 96 02/03/17 03:31 77 30 108/67 (72) 96 02/03/17 03:16 80 30 117/78 (87) 96 02/03/17 03:01 77 30 130/74 (83) 97 02/03/17 03:00 82 30 96 02/03/17 02:46 78 30 120/73 (85) 97 02/03/17 02:31 79 30 130/76 (86) 97 02/03/17 02:30 78 30 97 02/03/17 02:18 50 02/03/17 02:16 84 30 125/75 (81) 96 02/03/17 02:01 78 30 125/72 (87) 98 02/03/17 01:47 80 30 120/73 (91) 93 02/03/17 01:45 80 30 96/69 (81) 92 02/03/17 01:16 74 31 112/83 (95) 96 02/03/17 01:01 72 0 118/69 (79) 95 02/03/17 01:00 73 27 95 02/03/17 00:46 72 30 115/68 (78) 97 02/03/17 00:31 72 28 112/70 (79) 96 02/03/17 00:30 75 27 95 02/03/17 00:16 73 0 114/70 (78) 96 02/03/17 00:01 73 25 112/72 (89) 96 02/03/17 00:00 Mechanical Ventilator 40 02/03/17 00:00 40 02/03/17 00:00 37.0 02/02/17 23:46 74 30 110/67 (75) 95 02/02/17 23:31 74 30 111/71 (91) 96 02/02/17 23:30 74 30 96 02/02/17 23:27 50 02/02/17 23:16 77 30 109/71 (77) 95 02/02/17 23:01 76 30 110/73 (79) 96 02/02/17 23:00 78 30 96 02/02/17 22:31 84 30 116/71 (76) 96 02/02/17 22:16 85 30 93/60 (66) 96 02/02/17 22:02 86 30 106/66 (77) 93 02/02/17 21:46 72 26 110/68 (91) 95 02/02/17 21:31 77 30 106/68 (83) 95 Physical Exam General Appearance: WD/WN, no apparent distress, + pertinent finding (sedated) Eyes: normal inspection, sclerae normal ENT: normal ENT inspection, + pertinent finding (ET tube in place) Neck: supple, no adenopathy, trachea midline Respiratory/Chest: lungs clear, normal breath sounds, no respiratory distress Cardiovascular: regular rate, rhythm, no gallop, no murmur Abdomen: normal bowel sounds, non tender, soft, no organomegaly Extremities: no calf tenderness, normal capillary refill Neurologic/Psychiatric: + pertinent finding (sedated on vent) Skin: normal color, warm/dry, no rash Lymphatic: no adenopathy Laboratory Results Last 24 Hours Test 02/02/17 21:22 02/02/17 22:14 02/02/17 23:03 02/03/17 00:04 Bedside Glucose (other) 181 mg/dl 175 mg/dl 171 mg/dl 166 mg/dl Test 02/03/17 01:05 02/03/17 03:16 02/03/17 04:03 02/03/17 04:04 Bedside Glucose (other) 162 mg/dl 142 mg/dl Activated Partial Thromboplast Time 53.3 SECONDS Partial Thromboplastin Ratio 2.1 Sodium Level 138 mmol/L Potassium Level 2.9 mmol/L Chloride Level 107 mmol/L Carbon Dioxide Level 25 mmol/L Anion Gap 6.0 mmol/L Blood Urea Nitrogen 51 mg/dl Creatinine 1.90 mg/dl Est Creatinine Clear Calc Drug Dose 32.9 ml/min Estimated GFR () 32.9 Estimated GFR (Non- 28.4 BUN/Creatinine Ratio 26.9 Random Glucose 141 mg/dl Estimated Average Glucose 143 mg/dl Hemoglobin A1c 6.6 % Calcium Level 7.7 mg/dl Phosphorus Level 3.1 mg/dl Magnesium Level 1.9 mg/dl Troponin I < 0.015 ng/ml Procalcitonin 4.63 ng/ml White Blood Count 15.55 K/uL Red Blood Count 3.26 M/uL Hemoglobin 8.9 g/dL Hematocrit 28.1 % Mean Corpuscular Volume 86.2 fL Mean Corpuscular Hemoglobin 27.3 pg Mean Corpuscular Hemoglobin Concent 31.7 g/dl RDW Standard Deviation 59.7 fL RDW Coefficient of Variation 20.7 % Platelet Count 81 K/uL Mean Platelet Volume 10.6 fL Platelet Estimate DECREASED Test 02/03/17 05:29 02/03/17 05:49 02/03/17 06:31 02/03/17 07:58 Bedside Glucose (other) 135 mg/dl 124 mg/dl 102 mg/dl Blood Gas Sample Site R Radial Bedside Blood Gas pH (LAB) 7.42 Bedside Blood Gas pCO2 (LAB) 37 mmHg Bedside Blood Gas pO2 (LAB) 81 mmHg Bedside Blood Gas HCO3 (LAB) 24 meq/L Bedside Blood Gas Total CO2 25 mEq/l Bedside Blood Gas Base Excess (LAB) -1.0 meq/L Bedside Blood Gas O2 Saturation 96.0 % Andrae Test Pass Oxygen Delivery Device Ventilator Bedside Oxygen Rate (breaths/min) 30 Bedside FiO2 40 % Blood Gas PEEP 10 Test 02/03/17 08:26 02/03/17 09:03 02/03/17 09:04 02/03/17 09:40 Bedside Glucose (other) 95 mg/dl 86 mg/dl 139 mg/dl Lactic Acid Level 1.5 mmol/L Test 02/03/17 10:27 02/03/17 11:12 02/03/17 12:14 02/03/17 13:27 Bedside Glucose (other) 115 mg/dl 106 mg/dl 104 mg/dl 98 mg/dl Test 02/03/17 15:42 02/03/17 18:08 02/03/17 18:38 Bedside Glucose (other) 93 mg/dl 86 mg/dl Sodium Level 139 mmol/L Potassium Level 3.9 mmol/L Chloride Level 107 mmol/L Carbon Dioxide Level 25 mmol/L Anion Gap 7.0 mmol/L Blood Urea Nitrogen 50 mg/dl Creatinine 1.67 mg/dl Est Creatinine Clear Calc Drug Dose 37.1 ml/min Estimated GFR () 38.4 Estimated GFR (Non- 33.1 BUN/Creatinine Ratio 29.8 Random Glucose 97 mg/dl Calcium Level 8.0 mg/dl Assessment and Plan 61-year-old female with E coli sepsis and septic shock, with evidence of pyelonephritis with respiratory failure requiring intubation. Patient will continue Rx with ceftriaxone.. Will discuss need for potential removal of central line given presence of bacteremia. Will discuss with all involved. Will follow.
[2017-02-03] MEDS: INSULIN REGULAR 250 UNITS in SODIUM CHLORIDE 0.9% 250ML 250 ML IV SCH (22:02)
[2017-02-04] VITALS (23 sets, daily range): BP systolic 105–154; BP diastolic 60–89; PULSE 61–98; TEMP 36.5–36.9; O2SAT 95–100
[2017-02-04] MEDS: HYDROCORTISONE IV 100 MG in SYRINGE 0 ML IV SCH ×3 (01:00→20:44)
[2017-02-04] MEDS: IPRATROPIUM BROMIDE HFA INHALER INH SCH ×4 (02:26→19:28)
[2017-02-04] MEDS: LEValbuterol HFA 15GM INHALER INH SCH ×4 (02:26→19:28)
[2017-02-04] MEDS: LEVOTHYROXINE 100 MCG TAB PO SCH (05:30)
[2017-02-04] MEDS: MIDAZOLAM 125MG/250ML D5W 250 ML IV PRN (05:31)
[2017-02-04 05:34] LABS: MEAN CORPUSCULAR HGB CONC 32.4 g/dl (32-36)
[2017-02-04 06:01] LABS: CALCIUM 7.6 mg/dl (8.5-10.1); CREATININE 1.66 mg/dl (0.60-1.20); HEMATOCRIT 24.4 % (37-47); HEMOGLOBIN 7.9 g/dL (12.0-16.0); MEAN CELL VOLUME 86.2 fL (80-100); MEAN CORPUSCULAR HEMOGLOBIN 27.9 pg (25-34); POTASSIUM 3.6 mmol/L (3.5-5.1); PTT PATIENT 60.9 SECONDS (21.0-31.0); RED CELL DISTRIBUTION WIDTH SD 58.1 fL (36.4-46.3); WHITE BLOOD COUNT 11.25 K/uL (4.8-10.8)
[2017-02-04 06:02] LABS: PHOSPHORUS 2.6 mg/dl (2.5-4.9)
[2017-02-04 06:10] LABS: MEAN PLATELET VOLUME 11.7 fL (7.4-10.4); PLATELET COUNT 85 K/uL (130-400)
[2017-02-04 06:13] LABS: BASO % 0.1 %; BASO ABS # 0.01 K/uL (0-0.2); IG# 0.64 K/uL (0.00-0.02); LYMPH ABS # 0.56 K/uL (1.2-3.4); MONO % 2.5 %; MONO ABS # 0.28 K/uL (0.11-0.59); NEUT % 86.7 %; NEUT ABS # 9.76 K/uL (1.4-6.5)
--- NOTE | 2017-02-04 07:17 | DIAGNOSTIC IMAGING REPORT ---
CHEST ONE VIEW PORTABLE HISTORY: Intubated COMPARISON: Chest 02/03/2017. FINDINGS: The endotracheal tube terminates 1.6 admission the gracy. Right jugular Port-A-Cath terminates in the right brachiocephalic vein, unchanged. Left jugular central venous catheter terminates at the right atrium, unchanged. The heart is mildly enlarged. No pneumothorax. Cholecystectomy. Nasogastric tube terminates below the diaphragm. Interstitial and vascular thickening has improved. This suggests resolving pulmonary edema. Suspect trace bilateral pleural effusions. IMPRESSION: 1. Improvement in the pulmonary edema. 2. Unchanged support line placement as described above. Electronically signed by: Iain Griggs M.D. 02/04/2017 7:16 AM Dictated Date/Time: 02/04/2017 7:14 AM
[2017-02-04] MEDS ORDERED: PEPTAMEN INTENSE VHP 1000ML BAG OG PRN (09:00)
[2017-02-04] MEDS: PANTOprazole INJ 40 MG in SYRINGE 0 ML IV SCH (09:04)
[2017-02-04] MEDS: GABAPENTIN 100 MG CAP PO SCH ×3 (09:04→20:45)
[2017-02-04] MEDS: SODIUM BICARBONATE 650 MG TAB PO SCH ×3 (09:05→20:45)
[2017-02-04] MEDS: CHLORHEXIDINE GLUCONATE 0.12% 480 ML MT SCH (09:05)
[2017-02-04] MEDS ORDERED: INSULIN ASPART 100 UNITS/ML 3 ML PEN SC ONE ×2 (09:45)
[2017-02-04] MEDS ORDERED: INSULIN HUMAN REGULAR SC ONE (09:45)
[2017-02-04] MEDS ORDERED: INSULIN GLARGINE SOLOSTAR 100 UNITS/ML 3 ML PEN SC ONE (09:45)
--- NOTE | 2017-02-04 12:05 | Pharmacy Progress Note ---
Glycemic Control Progress Note Date of Service Feb 04, 2017. Scope Glycemic Pharmacist consulted for glycemic control to write orders per [facility] inpatient glycemic control protocol. Objective Accuchecks BSG (last 24hrs): Test 02/03/17 18:38 02/04/17 02:49 02/04/17 03:57 02/04/17 05:06 Random Glucose 97 mg/dl (70-99) Bedside Glucose 188 mg/dl (70-90) 174 mg/dl (70-90) 155 mg/dl (70-90) Test 02/04/17 05:10 02/04/17 05:53 Random Glucose 173 mg/dl (70-99) Bedside Glucose 194 mg/dl (70-90) HbA1c: Test 02/03/17 04:03 Hemoglobin A1c 6.6 % (4.5-5.6) H Recent Pertinent Medications The patient is currently receiving: * Insulin gtt @ 1.7 units/hr Outpatient Anti-Diabetic Meds None Assessment & Plan ASSESSMENT: 02/02/17 * ADA & AACE recommend a goal blood sugar range 140-180 mg/dl for the majority of critically ill & non-critically ill patients. * Ms Elaine is a 61 y/o F with a PMH of endometrial CA, gastric bypass surgery, and factor V Leiden who presented with generalized weakness and VAUGHN. She was found to have a bacteremia with a relatively sensitive E coli. She has been receiving treatment with cefepime. Last night, the patient developed respiratory failure and necessitated intubation. * Ms Elaine has had two consecutive blood sugars over 180 mg/dL therefore according to guidelines insulin infusion will be started. Based upon HbA1C patient may need additional coverage after vasopressors and infection are overcome. 02/03/17 * Remains on insulin gtt - was running at ~2 units/hr earlier today but now on hold 2nd BSG's below goal range * Changes to stressors: added hydrocortisone 100 mg IV q8h * Patient to remain on insulin gtt 2nd addition of steroids (per Dr. Lugo). OK to broaden goal range to help decrease rate changes/checks/dextrose administration 02/04/17 * Remains on insulin gtt, currently running at 1.7 units/hr - OK to transition to basal/bolus per ICU rounds. * Changes to stressors: norepinephrine stopped, Peptamen advanced to 40 mL/hr * Will give Lantus weight-based stress of 3 x1 dose to transition off insulin drip. Ongoing BID weight-based but dependent on BSG. * Will give Novolog x1 now to cover CHO in tube feeds. Will give another x1 dose in 4 hours, then ongoing q4h with high goal range and dosed weight based between stress of 2 and 3 PLAN FOR INPATIENT GLYCEMIC CONTROL: * Continue IV insulin infusion until 1700 (unless stops per protocol prior to that time) * Lantus 25 units SC x1 (administered at 1030) then BID based on BSG * 0 units for BSG less than 140 mg/dL * 10 units for BSG 140-180 mg/dL * 15 units for BSG greater than 180 mg/dL * Novolog 3 units SC x1 (administered at 1030). Additional one-time dose of 4 units at ~1400 * Novolog ongoing q4h while on tubefeeds, starting at 1700 * Goal range: 140-180 mg/dL * Correction factor: 20 mg/dL/unit * Carbohydrate ratio: 1 unit insulin for every 7 g CHO consumed (based on Peptamen VHP rate) * Please note that the plan above was derived based on current level of insulin resistance and hospital stress. These recommendations are appropriate for inpatient admission only. Plan of care upon discharge will need to be reassessed to avoid potential outpatient hypo/hyperglycemia. Thank you.
[2017-02-04] MEDS ORDERED: POTASSIUM CHLORIDE 20 MEQ/15 ML UDC PO STA (12:39)
[2017-02-04] MEDS ORDERED: POTASSIUM ACETATE IV SCH (12:45)
[2017-02-04] MEDS ORDERED: SODIUM CHLORIDE 0.9% IV SCH (12:45)
[2017-02-04] MEDS ORDERED: FUROSEMIDE INJ 40 MG in SYRINGE 0 ML IV SCH ×2 (13:15→18:00)
[2017-02-04] MEDS ORDERED: SODIUM CHLORIDE 0.9% IV ONE (13:30)
[2017-02-04] MEDS ORDERED: POTASSIUM ACETATE IV ONE (13:30)
[2017-02-04] MEDS: CEFTRIAXONE SOD INJ 2000 MG in DEXTROSE 5% 50ML IV SCH (13:47)
[2017-02-04] MEDS ORDERED: INSULIN ASPART 100 UNITS/ML 3 ML PEN SC STA (14:01)
--- NOTE | 2017-02-04 16:14 | Critical Care Progress Note ---
Critical Care Progress Note Date of Service Feb 04, 2017. ICU Day ICU Day Number: [address] Lugo Subjective Patient continues to be intubated. She does open her eyes and follow simple commands when sedation is lightened. She failed weaning trial this morning and continues on ventilator on pressure regulated volume control 20/400/5/30. End tidal was 26. No fever or chills. Due to patient's condition, she is unable to provide review of systems. Objective GENERAL : Continues to be intubated and sedated EYES: No icterus, gaze conjugate. PERRL. Does open eyes to command when sedation is lightened NOSE: No evidence of epistaxis MOUTH: No lesions or candidiasis. Endotracheal tube in place. No evidence of lesions to the lip or tongue with limited examination NECK: No JVD or stridor appreciated. No evidence of air leak LUNGS: Persistent rales at bases. Upper lung das clear. Respiratory rate of 21 HEART: Regular, rate controlled in the 80s ABDOMEN: Soft, NT, ND, BS Present EXTREMITIES: No LE edema, pedal pulses intact NEURO: Currently sedated and intubated on mechanical ventilation. Current SOFA Score SOFA Score Response (Comments) Value PaO2/FiO2 (mmHg) < 200 3 SaO2 / FIO2 221 - 301 1 Platelets (x10) < 150 1 Bilirubin (mg/dL) < 1.2 0 Janette Coma Score 10 - 12 2 Level of Hypotension No Hypotension 0 Creatinine (mg/dL) 1.2 - 1.9 1 Total 8 Assessment & Plan RESPIRATORY FAILURE Secondary cardiogenic shock, ARDs, pulmonary edema Stent changed to pressure regular volume control today 20/400/5/30 Lasix 40 mg IV 2 today Cumulative I&Os pos 7 L Chest x-ray with unchanged bilateral patchy pulmonary opacities Continues on antibiotic therapy for pyelonephritis including ceftriaxone No sputum sample collected Blood cultures with Escherichia coli. Urine culture with Escherichia coli We have continued to down titrate the patient's respiratory rate ID Pyelonephritis with pancytopenia Continue ceftriaxone - Day 2 Previously on cefepime 2 g every 12 hours IV Lactic acid now 1.3 Continues on norepinephrine for hypotension ID consulted - appreciate Dr. Rene's input Discussed total treatment course with Dr. Rene tomorrow Day 6 of total ABX therapy HEME Drop in hemoglobin today to 7.9 No clear source of bleeding Plt count [id number] Pancytopenia secondary to chemotherapy for endometrial cancer Follow serial labs FACTOR V LEYDEN DEFICIENCY No prior history of thrombotic disease Has not been on chronic outpatient anticoagulation Started on heparin drip secondary to sepsis and high risk for VTE Lower extremity duplex negative for DVT Unable to scan for pulmonary embolus secondary to acute kidney failure PIV access today. If they remain stable, discontinue central line RENAL Pyelonephritis Renal ultrasound with no hydronephrosis IV antibiotics Creatinine 1.66 today - continues with slow improvement daily Hydrocortisone 100 mg * decreased to BID today Goal to be 1 to 1.5 liters negative ELECTROLYTES Potassium improved at 3.6 - continue repletion - replete again on 02/05 with 40 mg of potassium down the NG tube and 40 mEq of potassium acetate IV No arrhythmias on telemetry Currently sinus rhythm with a rate in the 80s Follow serial labs IV ACCESS Right triple-lumen IJ catheter NUTRITION Currently receiving Peptamen VHP At goal Appreciate nutrition consult and input DVT PROPHYLAXIS Lower extremity venous Doppler with no evidence of acute DVT Continue heparin drip per weight based protocol SCDs CCT: 35 minutes Thank you for including us in the care of this patient. Please refer to Dr. Lugo's addendum for further recommendations I have personally evaluated and examined this patient. I agree with assessment and plan of Narendra Vaughan PA-C. Plan additions placed in assessment above Consults & Procedures Consultants: Oncology - Dr. García Procedures: Endotracheal intubation 02/01/2017 RIJ 3L CVC 02/01/2017 Data Medications: Current Inpatient Medications Medications (Trade) Dose Ordered Sig/Alek Route Start Time Stop Time Status Last Admin Dose Admin Prochlorperazine Edisylate 5 mg/ Syringe 5 ml @ 5 mls/min Q6H PRN IV 01/29/17 13:00 02/28/17 12:59 Levothyroxine Sodium (Synthroid Tab) 100 mcg DAILYBB PO 01/30/17 06:00 03/01/17 05:59 02/04/17 05:30 100 MCG Lorazepam (Ativan Tab) 0.5 mg BID PRN PO 01/29/17 13:15 02/28/17 13:14 02/01/17 04:12 0.5 MG Sertraline HCl (Zoloft Tab) 200 mg HS PO 01/29/17 21:00 02/28/17 20:59 02/03/17 20:33 200 MG Tramadol HCl (Ultram Tab) 50 mg Q6H PRN PO 01/29/17 13:15 02/28/17 13:14 01/31/17 12:30 50 MG Gabapentin (Neurontin Cap) 200 mg TID PO 01/30/17 09:00 02/28/17 13:59 02/04/17 14:12 200 MG Sodium Bicarbonate (Sodium Bicarbonate Tab) 1,300 mg TID PO 02/01/17 21:00 03/03/17 20:59 02/04/17 14:07 1,300 MG Norepinephrine Bitartrate 8 mg/ Dextrose 508 ml @ 0 mls/hr Q0M PRN IV 02/01/17 15:13 03/03/17 15:12 02/03/17 01:58 29.6 MLS/HR Chlorhexidine Gluconate (Peridex Oral Soln) 15 ml DAILY MT 02/02/17 09:00 03/04/17 08:59 02/04/17 09:05 15 ML Ipratropium [place] (Atrovent Hfa Inhaler) 4 puffs Q6R INH 02/01/17 21:05 03/03/17 21:04 02/04/17 14:42 4 PUFFS Levalbuterol (Xopenex Hfa Inhaler) 4 puffs Q6R INH 02/01/17 21:05 03/03/17 21:04 02/04/17 14:42 4 PUFFS Heparin Sodium/ Dextrose 500 ml @ 16 mls/hr Q24H PRN IV 02/02/17 09:45 03/04/17 09:44 02/02/17 09:55 16 MLS/HR Midazolam HCl 250 ml @ 0 mls/hr Q0M PRN IV 02/02/17 10:00 03/04/17 09:59 02/04/17 05:31 12 MLS/HR Fentanyl Citrate 250 ml @ 0 mls/hr Q0M PRN IV 02/02/17 10:00 02/16/17 09:59 02/03/17 18:44 10 MLS/HR Miscellaneous Information (Consult Glycemic Management Pharmacy) 1 ea UD PRN N/A 02/02/17 13:44 03/04/17 13:43 Insulin Human Regular 250 units/ Sodium Chloride 252.5 ml @ 0 mls/hr Q24H IV 02/02/17 15:30 02/04/17 17:00 02/03/17 22:02 1 MLS/HR Glucose (Glucose 40% Gel) UD PRN PO 02/02/17 15:15 03/04/17 15:14 Glucose (Glucose Chew Tab) 1 tabs UD PRN PO 02/02/17 15:15 03/04/17 15:14 Dextrose (Dextrose 50% 50ML Syringe) 50 ml UD PRN IV 02/02/17 15:15 03/04/17 15:14 02/03/17 09:09 50 ML Glucagon (Glucagon Inj) 1 mg UD PRN SQ 02/02/17 15:15 03/04/17 15:14 Acetaminophen (Tylenol Soln) 650 mg Q4H PRN PO 02/02/17 19:00 03/04/17 18:59 Ceftriaxone Sodium 2000 mg/ Dextrose 70 ml @ 140 mls/hr DAILY@1400 IV 02/03/17 14:00 02/17/17 13:59 02/04/17 13:47 140 MLS/HR Enteral Nutritional Formula (Peptamen Intense VHP) 1,000 ml UD PRN OG 02/04/17 09:00 03/06/17 08:59 Insulin Aspart (novoLOG ASPART) SLIDING SCALE Q4 SC 02/04/17 17:00 03/06/17 16:59 Insulin Glargine (Lantus Solostar Pen) BID SC 02/04/17 21:00 03/06/17 20:59 Miscellaneous (Stop Order) 1 ea TODAY@1700 ONCE N/A 02/04/17 17:00 02/04/17 17:01 Hydrocortisone Sodium Succinate 100 mg/Syringe 2 ml @ 4 mls/min BID IV 02/04/17 21:00 03/05/17 08:59 Pantoprazole Sodium 40 mg/ Syringe 10 ml @ 5 mls/min QAM IV 02/05/17 09:00 03/03/17 20:59 Furosemide 40 mg/ Syringe 4 ml @ 4 mls/min 1800 IV 02/04/17 18:00 02/04/17 18:30 Methylcellulose (Citrucel Powder) 1 gm BID PO 02/04/17 21:00 03/06/17 20:59 Potassium Acetate 40 meq/Sodium Chloride 520 ml @ 130 mls/hr TODAY@1330 ONCE IV 02/04/17 13:30 02/04/17 17:29 02/04/17 13:35 130 MLS/HR I & O: 24-Hour Column 02/05/17 08:00 Intake Total 818 ml Output Total 350 ml Balance 468 ml Vital Signs: Date Time Temp Pulse Resp B/P (MAP) Pulse Ox O2 Delivery O2 Flow Rate FiO2 02/04/17 14:42 40 02/04/17 14:00 92 21 143/81 (101) 95 Mechanical Ventilator 02/04/17 12:00 Mechanical Ventilator 40 02/04/17 12:00 40 02/04/17 12:00 36.9 89 18 145/64 (91) 97 Mechanical Ventilator 40 02/04/17 11:03 40 02/04/17 11:02 40 02/04/17 10:00 86 21 122/66 (84) 97 Mechanical Ventilator 02/04/17 09:00 87 21 118/60 (79) 98 02/04/17 08:30 40 02/04/17 08:00 87 21 134/74 (94) 96 02/04/17 08:00 40 02/04/17 08:00 Mechanical Ventilator 40 02/04/17 07:24 40 02/04/17 07:00 36.9 73 26 105/64 (78) 96 Mechanical Ventilator 40 02/04/17 06:01 92 26 125/78 (107) 96 02/04/17 05:12 40 02/04/17 05:01 75 26 126/69 (77) 100 02/04/17 04:01 86 26 151/89 (112) 100 02/04/17 04:00 36.9 02/04/17 04:00 40 02/04/17 04:00 100 Mechanical Ventilator 40 02/04/17 03:01 70 26 107/66 (74) 99 02/04/17 02:26 40 02/04/17 02:01 78 26 154/77 (102) 100 02/04/17 01:01 61 26 125/72 (85) 100 02/04/17 00:01 72 26 118/68 (75) 100 02/04/17 00:01 36.5 02/03/17 23:59 40 02/03/17 23:59 100 Mechanical Ventilator 40 02/03/17 23:01 75 26 103/66 (70) 99 02/03/17 22:10 40 02/03/17 22:01 72 26 123/70 (75) 99 02/03/17 21:01 78 26 107/69 (75) 99 02/03/17 20:01 83 26 92/63 (68) 100 02/03/17 20:00 100 Mechanical Ventilator 40 02/03/17 20:00 40 02/03/17 20:00 36.9 02/03/17 19:52 80 26 107/68 (77) 100 02/03/17 19:35 40 02/03/17 19:31 75 26 91/61 (69) 100 02/03/17 19:01 78 26 93/61 (67) 100 02/03/17 18:31 74 26 115/70 (85) 100 Mechanical Ventilator 40 02/03/17 18:01 75 26 101/67 (78) 100 Mechanical Ventilator 40 02/03/17 17:46 77 26 94/65 (75) 100 Mechanical Ventilator 40 02/03/17 17:31 82 26 91/60 (70) 100 Mechanical Ventilator 40 02/03/17 17:19 87 26 88/54 (65) 99 Mechanical Ventilator 40 02/03/17 17:16 89 26 80/56 (64) 99 Mechanical Ventilator 40 02/03/17 17:07 40 02/03/17 17:00 92 26 89/57 (68) 96 Mechanical Ventilator 40 Laboratory Results: Last 24 Hours Test 02/03/17 18:08 02/03/17 18:38 02/03/17 19:56 02/03/17 21:50 Bedside Glucose (other) 86 mg/dl 107 mg/dl 154 mg/dl Sodium Level 139 mmol/L Potassium Level 3.9 mmol/L Chloride Level 107 mmol/L Carbon Dioxide Level 25 mmol/L Anion Gap 7.0 mmol/L Blood Urea Nitrogen 50 mg/dl Creatinine 1.67 mg/dl Est Creatinine Clear Calc Drug Dose 37.1 ml/min Estimated GFR () 38.4 Estimated GFR (Non- 33.1 BUN/Creatinine Ratio 29.8 Random Glucose 97 mg/dl Calcium Level 8.0 mg/dl Test 02/03/17 23:03 02/03/17 23:49 02/04/17 01:00 02/04/17 02:49 Bedside Glucose (other) 168 mg/dl 159 mg/dl 162 mg/dl Bedside Glucose 188 mg/dl Test 02/04/17 03:57 02/04/17 05:06 02/04/17 05:10 02/04/17 05:53 Bedside Glucose 174 mg/dl 155 mg/dl 194 mg/dl White Blood Count 11.25 K/uL Red Blood Count 2.83 M/uL Hemoglobin 7.9 g/dL Hematocrit 24.4 % Mean Corpuscular Volume 86.2 fL Mean Corpuscular Hemoglobin 27.9 pg Mean Corpuscular Hemoglobin Concent 32.4 g/dl Platelet Count 85 K/uL Mean Platelet Volume 11.7 fL Neutrophils (%) (Auto) 86.7 % Lymphocytes (%) (Auto) 5.0 % Monocytes (%) (Auto) 2.5 % Eosinophils (%) (Auto) 0.0 % Basophils (%) (Auto) 0.1 % Neutrophils # (Auto) 9.76 K/uL Lymphocytes # (Auto) 0.56 K/uL Monocytes # (Auto) 0.28 K/uL Eosinophils # (Auto) 0.00 K/uL Basophils # (Auto) 0.01 K/uL RDW Standard Deviation 58.1 fL RDW Coefficient of Variation 21.0 % Immature Granulocyte % (Auto) 5.7 % Immature Granulocyte # (Auto) 0.64 K/uL Toxic Granulation 1+ Platelet Estimate DECREASED Large Platelets 1+ Poikilocytosis PRESENT Anisocytosis PRESENT Activated Partial Thromboplast Time 60.9 SECONDS Partial Thromboplastin Ratio 2.3 Venous Blood pH 7.47 Venous Blood Partial Pressure CO2 33 mmHg Venous Blood Partial Pressure O2 35 mmHg Venous Blood HCO3 24 mmol/L Venous Blood Oxygen Saturation 68.2 % Venous Blood Base Excess 0.1 mEq/L Sodium Level 138 mmol/L Potassium Level 3.6 mmol/L Chloride Level 106 mmol/L Carbon Dioxide Level 24 mmol/L Anion Gap 8.0 mmol/L Blood Urea Nitrogen 50 mg/dl Creatinine 1.66 mg/dl Est Creatinine Clear Calc Drug Dose 37.4 ml/min Estimated GFR () 38.7 Estimated GFR (Non- 33.4 BUN/Creatinine Ratio 30.2 Random Glucose 173 mg/dl Lactic Acid Level 1.3 mmol/L Calcium Level 7.6 mg/dl Phosphorus Level 2.6 mg/dl Magnesium Level 1.8 mg/dl Test 02/04/17 07:36 02/04/17 08:33 02/04/17 09:50 02/04/17 10:53 Bedside Glucose 193 mg/dl 193 mg/dl 178 mg/dl Blood Gas Sample Site L Radial Bedside Blood Gas pH (LAB) 7.46 Bedside Blood Gas pCO2 (LAB) 35 mmHg Bedside Blood Gas pO2 (LAB) 71 mmHg Bedside Blood Gas HCO3 (LAB) 25 meq/L Bedside Blood Gas Total CO2 26 mEq/l Bedside Blood Gas Base Excess (LAB) 1.0 meq/L Bedside Blood Gas O2 Saturation 95.0 % Andrae Test Pass Oxygen Delivery Device Ventilator Bedside Oxygen Rate (breaths/min) 20 Blood Gas Minute Ventilation 7.8 Bedside FiO2 40 % Blood Gas Tidal Volume 400 Blood Gas PEEP 5 Test 02/04/17 11:03 02/04/17 12:18 02/04/17 13:29 02/04/17 14:40 Bedside Glucose 201 mg/dl 192 mg/dl 208 mg/dl 190 mg/dl Test 02/04/17 15:35 Bedside Glucose 163 mg/dl
[2017-02-04] MEDS: INSULIN ASPART 100 UNITS/ML 3 ML PEN SC SCH ×3 (16:53→23:36)
[2017-02-04] MEDS ORDERED: INSULIN DRIP - STOP ORDER ONE (17:00)
[2017-02-04] MEDS: INSULIN REGULAR 250 UNITS in SODIUM CHLORIDE 0.9% 250ML 250 ML IV SCH (17:00)
[2017-02-04 18:21] LABS: RETIC COUNT % 1.8 % (0.5-2.0)
--- NOTE | 2017-02-04 18:26 | Progress Note ---
Medicine Progress Note Date & Time of Visit: Feb 04, 2017 at 16:23. Subjective Pt was seen and examined Sedated/Intubated on vent support Objective Last 8 Hrs Date Time Temp Pulse Resp B/P (MAP) Pulse Ox O2 Delivery O2 Flow Rate FiO2 02/04/17 18:00 89 23 127/71 (89) 99 CPAP 40 Mechanical Ventilator 02/04/17 17:03 40 02/04/17 16:00 Mechanical Ventilator 40 02/04/17 16:00 40 02/04/17 16:00 36.8 85 19 126/70 (88) 100 Mechanical Ventilator 40 02/04/17 14:42 40 02/04/17 14:00 92 21 143/81 (101) 95 Mechanical Ventilator 02/04/17 12:00 Mechanical Ventilator 40 02/04/17 12:00 40 02/04/17 12:00 36.9 89 18 145/64 (91) 97 Mechanical Ventilator 40 02/04/17 11:03 40 02/04/17 11:02 40 Physical Exam: General- Intubated on vent support Head- atraumatic Eyes- PERRL ENT- Intubated Neck- no JVD Lungs- Coarse BS Heart- regular rhythm Abdomen- normal bowel sounds Neuro- Sedated Skin- warm & dry Laboratory Results: Last 24 Hours Test 02/03/17 18:38 02/03/17 19:56 02/03/17 21:50 02/03/17 23:03 Sodium Level 139 mmol/L Potassium Level 3.9 mmol/L Chloride Level 107 mmol/L Carbon Dioxide Level 25 mmol/L Anion Gap 7.0 mmol/L Blood Urea Nitrogen 50 mg/dl Creatinine 1.67 mg/dl Est Creatinine Clear Calc Drug Dose 37.1 ml/min Estimated GFR () 38.4 Estimated GFR (Non- 33.1 BUN/Creatinine Ratio 29.8 Random Glucose 97 mg/dl Calcium Level 8.0 mg/dl Bedside Glucose (other) 107 mg/dl 154 mg/dl 168 mg/dl Test 02/03/17 23:49 02/04/17 01:00 02/04/17 02:49 02/04/17 03:57 Bedside Glucose (other) 159 mg/dl 162 mg/dl Bedside Glucose 188 mg/dl 174 mg/dl Test 02/04/17 05:06 02/04/17 05:10 02/04/17 05:53 02/04/17 07:36 Bedside Glucose 155 mg/dl 194 mg/dl 193 mg/dl White Blood Count 11.25 K/uL Red Blood Count 2.83 M/uL Hemoglobin 7.9 g/dL Hematocrit 24.4 % Mean Corpuscular Volume 86.2 fL Mean Corpuscular Hemoglobin 27.9 pg Mean Corpuscular Hemoglobin Concent 32.4 g/dl Platelet Count 85 K/uL Mean Platelet Volume 11.7 fL Neutrophils (%) (Auto) 86.7 % Lymphocytes (%) (Auto) 5.0 % Monocytes (%) (Auto) 2.5 % Eosinophils (%) (Auto) 0.0 % Basophils (%) (Auto) 0.1 % Neutrophils # (Auto) 9.76 K/uL Lymphocytes # (Auto) 0.56 K/uL Monocytes # (Auto) 0.28 K/uL Eosinophils # (Auto) 0.00 K/uL Basophils # (Auto) 0.01 K/uL RDW Standard Deviation 58.1 fL RDW Coefficient of Variation 21.0 % Immature Granulocyte % (Auto) 5.7 % Immature Granulocyte # (Auto) 0.64 K/uL Toxic Granulation 1+ Platelet Estimate DECREASED Large Platelets 1+ Poikilocytosis PRESENT Anisocytosis PRESENT Activated Partial Thromboplast Time 60.9 SECONDS Partial Thromboplastin Ratio 2.3 Venous Blood pH 7.47 Venous Blood Partial Pressure CO2 33 mmHg Venous Blood Partial Pressure O2 35 mmHg Venous Blood HCO3 24 mmol/L Venous Blood Oxygen Saturation 68.2 % Venous Blood Base Excess 0.1 mEq/L Sodium Level 138 mmol/L Potassium Level 3.6 mmol/L Chloride Level 106 mmol/L Carbon Dioxide Level 24 mmol/L Anion Gap 8.0 mmol/L Blood Urea Nitrogen 50 mg/dl Creatinine 1.66 mg/dl Est Creatinine Clear Calc Drug Dose 37.4 ml/min Estimated GFR () 38.7 Estimated GFR (Non- 33.4 BUN/Creatinine Ratio 30.2 Random Glucose 173 mg/dl Lactic Acid Level 1.3 mmol/L Calcium Level 7.6 mg/dl Phosphorus Level 2.6 mg/dl Magnesium Level 1.8 mg/dl Test 02/04/17 08:33 02/04/17 09:50 02/04/17 10:53 02/04/17 11:03 Bedside Glucose 193 mg/dl 178 mg/dl 201 mg/dl Blood Gas Sample Site L Radial Bedside Blood Gas pH (LAB) 7.46 Bedside Blood Gas pCO2 (LAB) 35 mmHg Bedside Blood Gas pO2 (LAB) 71 mmHg Bedside Blood Gas HCO3 (LAB) 25 meq/L Bedside Blood Gas Total CO2 26 mEq/l Bedside Blood Gas Base Excess (LAB) 1.0 meq/L Bedside Blood Gas O2 Saturation 95.0 % Andrae Test Pass Oxygen Delivery Device Ventilator Bedside Oxygen Rate (breaths/min) 20 Blood Gas Minute Ventilation 7.8 Bedside FiO2 40 % Blood Gas Tidal Volume 400 Blood Gas PEEP 5 Test 02/04/17 12:18 02/04/17 13:29 02/04/17 14:40 02/04/17 15:35 Bedside Glucose 192 mg/dl 208 mg/dl 190 mg/dl 163 mg/dl Test 02/04/17 16:50 02/04/17 18:09 Bedside Glucose 150 mg/dl Absolute Reticulocyte Count 0.05 10^6/uL Percent Reticulocyte Count 1.8 % Assessment & Plan ACUTE RESPIRATORY FAILURE Possible related to ARDS, pulmonary edema Intubated on vent support Chest x-ray with unchanged bilateral patchy pulmonary opacities Unable to get CTA chest due to VAUGHN Received IV lasix again today CXR today showed improvement in the pulmonary edema Monitor I/O Continue IV Rocephin Repeat blood cx no growth SEPSIS Pyelonephritis/bacteremia Blood cultures and Urine culture grew Escherichia coli Elevated lactic acid on admission, now normal Continue pressor Repeat cx no growth On Rocephin IV ID on board ANEMIA Hemoglobin today 7.9 No clear source of bleeding Pancytopenia secondary to chemotherapy for endometrial cancer Monitor CBC FACTOR V LEYDEN DEFICIENCY No prior history of thrombotic disease Has not been on chronic outpatient anticoagulation on heparin drip secondary to sepsis Lower extremity duplex negative for DVT VAUGHN Renal ultrasound showed no hydronephrosis Creatinine 1.6 today Continue monitor BMP closely ELECTROLYTES IMBALANCE K 3.6 today Continue monitor BMP DVT PX on heparin drip CODE STATUS FULL CODE Current Inpatient Medications: Current Inpatient Medications Medications (Trade) Dose Ordered Sig/Alek Route Start Time Stop Time Status Last Admin Dose Admin Prochlorperazine Edisylate 5 mg/ Syringe 5 ml @ 5 mls/min Q6H PRN IV 01/29/17 13:00 02/28/17 12:59 Levothyroxine Sodium (Synthroid Tab) 100 mcg DAILYBB PO 01/30/17 06:00 03/01/17 05:59 02/04/17 05:30 100 MCG Lorazepam (Ativan Tab) 0.5 mg BID PRN PO 01/29/17 13:15 02/28/17 13:14 02/01/17 04:12 0.5 MG Sertraline HCl (Zoloft Tab) 200 mg HS PO 01/29/17 21:00 02/28/17 20:59 02/03/17 20:33 200 MG Tramadol HCl (Ultram Tab) 50 mg Q6H PRN PO 01/29/17 13:15 02/28/17 13:14 01/31/17 12:30 50 MG Gabapentin (Neurontin Cap) 200 mg TID PO 01/30/17 09:00 02/28/17 13:59 02/04/17 14:12 200 MG Sodium Bicarbonate (Sodium Bicarbonate Tab) 1,300 mg TID PO 02/01/17 21:00 03/03/17 20:59 02/04/17 14:07 1,300 MG Norepinephrine Bitartrate 8 mg/ Dextrose 508 ml @ 0 mls/hr Q0M PRN IV 02/01/17 15:13 03/03/17 15:12 02/03/17 01:58 29.6 MLS/HR Chlorhexidine Gluconate (Peridex Oral Soln) 15 ml DAILY MT 02/02/17 09:00 03/04/17 08:59 02/04/17 09:05 15 ML Ipratropium [place] (Atrovent Hfa Inhaler) 4 puffs Q6R INH 02/01/17 21:05 03/03/17 21:04 02/04/17 14:42 4 PUFFS Levalbuterol (Xopenex Hfa Inhaler) 4 puffs Q6R INH 02/01/17 21:05 03/03/17 21:04 02/04/17 14:42 4 PUFFS Heparin Sodium/ Dextrose 500 ml @ 16 mls/hr Q24H PRN IV 02/02/17 09:45 03/04/17 09:44 02/02/17 09:55 16 MLS/HR Midazolam HCl 250 ml @ 0 mls/hr Q0M PRN IV 02/02/17 10:00 03/04/17 09:59 02/04/17 05:31 12 MLS/HR Fentanyl Citrate 250 ml @ 0 mls/hr Q0M PRN IV 02/02/17 10:00 02/16/17 09:59 02/03/17 18:44 10 MLS/HR Miscellaneous Information (Consult Glycemic Management Pharmacy) 1 ea UD PRN N/A 02/02/17 13:44 03/04/17 13:43 Glucose (Glucose 40% Gel) UD PRN PO 02/02/17 15:15 03/04/17 15:14 Glucose (Glucose Chew Tab) 1 tabs UD PRN PO 02/02/17 15:15 03/04/17 15:14 Dextrose (Dextrose 50% 50ML Syringe) 50 ml UD PRN IV 02/02/17 15:15 03/04/17 15:14 02/03/17 09:09 50 ML Glucagon (Glucagon Inj) 1 mg UD PRN SQ 02/02/17 15:15 03/04/17 15:14 Acetaminophen (Tylenol Soln) 650 mg Q4H PRN PO 02/02/17 19:00 03/04/17 18:59 Ceftriaxone Sodium 2000 mg/ Dextrose 70 ml @ 140 mls/hr DAILY@1400 IV 02/03/17 14:00 02/17/17 13:59 02/04/17 13:47 140 MLS/HR Enteral Nutritional Formula (Peptamen Intense VHP) 1,000 ml UD PRN OG 02/04/17 09:00 03/06/17 08:59 02/04/17 17:45 1,000 ML Insulin Aspart (novoLOG ASPART) SLIDING SCALE Q4 SC 02/04/17 17:00 03/06/17 16:59 02/04/17 16:53 3 UNITS Insulin Glargine (Lantus Solostar Pen) BID SC 02/04/17 21:00 03/06/17 20:59 Hydrocortisone Sodium Succinate 100 mg/Syringe 2 ml @ 4 mls/min BID IV 02/04/17 21:00 03/05/17 08:59 Pantoprazole Sodium 40 mg/ Syringe 10 ml @ 5 mls/min QAM IV 02/05/17 09:00 03/03/17 20:59 Furosemide 40 mg/ Syringe 4 ml @ 4 mls/min 1800 IV 02/04/17 18:00 02/04/17 18:30 02/04/17 17:46 4 MLS/MIN Methylcellulose (Citrucel Powder) 1 gm BID PO 02/04/17 21:00 03/06/17 20:59
[2017-02-04 18:51] LABS: CALCIUM 7.8 mg/dl (8.5-10.1); CREATININE 1.5 mg/dl (0.60-1.20); POTASSIUM 4.1 mmol/L (3.5-5.1)
[2017-02-04] MEDS: INSULIN GLARGINE SOLOSTAR 100 UNITS/ML 3 ML PEN SC SCH (20:44)
[2017-02-04] MEDS: METHYLCELLULOSE POWDER 454 GM JAR PO SCH (20:45)
[2017-02-04] MEDS: SERTRALINE HCL 100 MG TAB PO SCH (20:46)
[2017-02-04] MEDS: HEPARIN 25,000 UNIT/500ML D5W 500 ML IV PRN (21:35)
[2017-02-05] VITALS (24 sets, daily range): BP systolic 110–155; BP diastolic 65–87; PULSE 61–88; TEMP 36.5–36.8; O2SAT 90–98
[2017-02-05] MEDS: LEValbuterol HFA 15GM INHALER INH SCH ×2 (01:57→07:33)
[2017-02-05] MEDS: IPRATROPIUM BROMIDE HFA INHALER INH SCH ×2 (01:57→07:33)
[2017-02-05] MEDS: FENTANYL 1250MCG/250ML NSS IV PRN (02:14)
[2017-02-05] MEDS: INSULIN ASPART 100 UNITS/ML 3 ML PEN SC SCH ×5 (03:42→19:35)
[2017-02-05] MEDS: LEVOTHYROXINE 100 MCG TAB PO SCH (05:13)
[2017-02-05 05:56] LABS: PTT PATIENT 41.8 SECONDS (21.0-31.0)
[2017-02-05] MEDS ORDERED: HEPARIN IV BOLUS 3,000 UNIT in SYRINGE 0 ML IV ONE (06:15)
[2017-02-05] MEDS: HEPARIN 25,000 UNIT/500ML D5W 500 ML IV PRN ×3 (06:21→21:19)
[2017-02-05 06:30] LABS: HEMOGLOBIN 7.7 g/dL (12.0-16.0); MEAN CELL VOLUME 88.7 fL (80-100); MEAN CORPUSCULAR HEMOGLOBIN 27.3 pg (25-34); MEAN CORPUSCULAR HGB CONC 30.8 g/dl (32-36); MEAN PLATELET VOLUME 12.8 fL (7.4-10.4); PLATELET COUNT 112 K/uL (130-400); RED CELL DISTRIBUTION WIDTH CV 21.2 % (11.5-14.5); RED CELL DISTRIBUTION WIDTH SD 61.5 fL (36.4-46.3); WHITE BLOOD COUNT 15.33 K/uL (4.8-10.8)
[2017-02-05 06:31] LABS: CALCIUM 7.8 mg/dl (8.5-10.1); CREATININE 1.41 mg/dl (0.60-1.20); PHOSPHORUS 2.8 mg/dl (2.5-4.9); POTASSIUM 3.3 mmol/L (3.5-5.1)
[2017-02-05 06:32] LABS: BASO % 0.1 %; BASO ABS # 0.01 K/uL (0-0.2); IG# 0.44 K/uL (0.00-0.02); LYMPH ABS # 0.77 K/uL (1.2-3.4); MONO % 3.6 %; MONO ABS # 0.55 K/uL (0.11-0.59); NEUT % 88.4 %; NEUT ABS # 13.56 K/uL (1.4-6.5)
[2017-02-05] MEDS ORDERED: POTASSIUM CHLORIDE 20 MEQ/15 ML UDC NG ONE (07:00)
--- NOTE | 2017-02-05 08:45 | DIAGNOSTIC IMAGING REPORT ---
CHEST ONE VIEW PORTABLE HISTORY: 61 years-old Female Intubated acute respiratory failure COMPARISON: Chest radiograph 02/04/2017 TECHNIQUE: Portable AP view of the chest FINDINGS: Cardiac silhouette is again mildly enlarged. Endotracheal tube is angled towards the right overlying the midline, 2.2 cm superior to the gracy. Enteric tube courses below the diaphragm into the region of the gastric lumen. Right pectoral [id number] catheter is unchanged. No pneumothorax. Persistent pulmonary vascular congestion with interstitial coarsening. Hazy bibasilar opacities with probable trace effusions and mild right hemidiaphragmatic elevation. Lungs are hypoinflated. The bones appear grossly intact. IMPRESSION: 1. Stable positioning of life support lines and tubes. 2. Cardiomegaly with hypoinflation and persistent mild pulmonary edema pattern. 3. Superimposed bibasilar opacities suggest atelectasis with trace effusions. The above report was generated using voice recognition software. It may contain grammatical, syntax or spelling errors. Electronically signed by: Placido Bar M.D. 02/05/2017 8:43 AM Dictated Date/Time: 02/05/2017 7:49 AM
[2017-02-05] MEDS: PANTOprazole INJ 40 MG in SYRINGE 0 ML IV SCH (09:00)
[2017-02-05] MEDS: METHYLCELLULOSE POWDER 454 GM JAR PO SCH ×2 (09:00→20:52)
[2017-02-05] MEDS: CHLORHEXIDINE GLUCONATE 0.12% 480 ML MT SCH (09:00)
[2017-02-05] MEDS: HYDROCORTISONE IV 100 MG in SYRINGE 0 ML IV SCH ×2 (09:00→20:52)
[2017-02-05] MEDS: GABAPENTIN 100 MG CAP PO SCH ×3 (09:01→20:52)
[2017-02-05] MEDS: SODIUM BICARBONATE 650 MG TAB PO SCH ×3 (09:01→20:52)
[2017-02-05] MEDS: INSULIN GLARGINE SOLOSTAR 100 UNITS/ML 3 ML PEN SC SCH ×2 (09:03→20:52)
[2017-02-05] MEDS: SODIUM CHLORIDE 0.9% IV SCH ×2 (10:28→19:34)
[2017-02-05] MEDS: POTASSIUM ACETATE IV SCH ×2 (10:28→19:34)
[2017-02-05] MEDS ORDERED: INSULIN GLARGINE SOLOSTAR 100 UNITS/ML 3 ML PEN SC ONE (10:45)
[2017-02-05] MEDS: FUROSEMIDE INJ 40 MG in SYRINGE 0 ML IV SCH ×3 (10:51→20:52)
--- NOTE | 2017-02-05 12:14 | Critical Care Progress Note ---
Critical Care Progress Note Date of Service Feb 05, 2017. ICU Day ICU Day Number: [address] Parish Spring This is a 61 yo female with endometrial carcinoma, clear cell variant, localized disease involving the endometrium, no pelvic lymph kristin involvement, elevated CA 125 level around 95. She was admitted on 01/29/17 and required endotracheal intubation for mechanical ventilation. She was neutropenic and was only able to complete one course of chemotherapy. Family is at the bedside now and state that she would not want to be intubated and in the event of cardiac arrest would not want cardiac resucitation. They have also asked for a palliative care consult. I have consulted Marisol TA for a palliative care consult. A family meeting has been requested. In as much as this is a localized disease process, we will also talk to oncology (Dr. Roberto García) for appropriateness of further care and management of her endometrial CA. At this time, patient is able to nod and shake her head but is not able to give credible ROS. She does deny pain but has noticeable SOB without hypoxia. She has significant upper and lower extremity edema but denies pain or paresthesias. She has no other complaints. Objective GENERAL : Continues to be intubated and sedated - plan to extubate 02/05 if able EYES: No icterus, gaze conjugate. PERRL. NOSE: No evidence of epistaxis MOUTH: No lesions or candidiasis. Endotracheal tube in place. No evidence of lesions to the lip or tongue with limited examination NECK: No JVD or stridor appreciated. No evidence of air leak LUNGS: Persistent rales at bases. Upper lung das clear. Respiratory rate of 21 HEART: Regular, rate controlled in the 80s ABDOMEN: Soft, NT, ND, BS Present EXTREMITIES: No LE edema, pedal pulses intact NEURO: Awake and alert. Follows simple commands. Intubated Current SOFA Score SOFA Score Response (Comments) Value PaO2/FiO2 (mmHg) < 200 3 SaO2 / FIO2 221 - 301 1 Platelets (x10) > 150 0 Bilirubin (mg/dL) < 1.2 0 [place] Coma Score 13 - 14 1 Level of Hypotension No Hypotension 0 Creatinine (mg/dL) 1.2 - 1.9 1 Total 6 Assessment & Plan RESPIRATORY FAILURE Secondary cardiogenic shock, ARDs, pulmonary edema Stent changed to pressure regular volume control today 20/400/5/30 Doing well with weaning protocol. Will hopefully extubate today Continues on antibiotic therapy for pyelonephritis including ceftriaxone No sputum sample collected Blood cultures with Escherichia coli. Urine culture with Escherichia coli Following simple commands Family at bedside and indicating that patient would not want to be re-intubated if persistent respiratory failure ID Pyelonephritis with pancytopenia Continue ceftriaxone - Day 3 Previously on cefepime 2 g every 12 hours IV Lactic acid 1.3 on 02/04 Norepinephrine weaned off ID consulted - appreciate Dr. Rene's input HEME Drift in hemoglobin today to 7.7 No clear source of bleeding Plt count up to 112,000 Pancytopenia secondary to chemotherapy for endometrial cancer Follow serial labs FACTOR V LEYDEN DEFICIENCY No prior history of thrombotic disease Has not been on chronic outpatient anticoagulation Continues on heparin drip secondary to sepsis and high risk for VTE Lower extremity duplex negative for DVT Unable to scan for pulmonary embolus secondary to acute kidney failure RENAL Pyelonephritis Renal ultrasound with no hydronephrosis IV antibiotics Creatinine 1.41 today - continues with slow improvement daily Hydrocortisone 100 mg Goal to be 1 liter negative ELECTROLYTES Continue to replete with elixir and with Potassium Acetate No arrhythmias on telemetry Currently sinus rhythm with a rate in the 80s Follow serial labs IV ACCESS Right triple-lumen IJ catheter removed 02/05/2017 Now with 3 PIVs NUTRITION Currently receiving Peptamen VHP Hold for now for possible extubation Appreciate nutrition consult and input DVT PROPHYLAXIS Lower extremity venous Doppler with no evidence of acute DVT Continue heparin drip per weight based protocol SCDs CCT: 35 minutes Thank you for including us in the care of this patient. Please refer to Dr. Lugo's addendum for further recommendations I have personally evaluated and examined this patient. I agree with assessment and plan of Narendra Vaughan PA-C. I had an extensive discussion with the patient's , and the patient's 3 daughters regarding her goals of care. All expressed that the patient would not want to undergo cardiopulmonary resuscitation in event of cardiac arrest nor repeat intubation in event of respiratory insufficiency. Further they expressed that the patient would not want to undergo additional chemotherapy treatment and in the last 10 years patient has suffered numerous complications from various medical treatments including gastric bypass surgery and recurrent bouts of reported sepsis. We are anticipating a palliative care consult with the palate occur team tomorrow at this point we have made the patient level V DO NOT RESUSCITATE DO NOT INTUBATE in event of cardiac arrest or respiratory arrest. Consults & Procedures Consultants: Oncology - Dr. García Procedures: Endotracheal intubation 02/01/2017 RIJ 3L CVC 02/01/2017 Removal of RIJ 3L CVC 02/04/2017 Data Medications: Current Inpatient Medications Medications (Trade) Dose Ordered Sig/Alek Route Start Time Stop Time Status Last Admin Dose Admin Prochlorperazine Edisylate 5 mg/ Syringe 5 ml @ 5 mls/min Q6H PRN IV 01/29/17 13:00 02/28/17 12:59 Levothyroxine Sodium (Synthroid Tab) 100 mcg DAILYBB PO 01/30/17 06:00 03/01/17 05:59 02/05/17 05:13 100 MCG Lorazepam (Ativan Tab) 0.5 mg BID PRN PO 01/29/17 13:15 02/28/17 13:14 02/01/17 04:12 0.5 MG Sertraline HCl (Zoloft Tab) 200 mg HS PO 01/29/17 21:00 02/28/17 20:59 02/04/17 20:46 200 MG Tramadol HCl (Ultram Tab) 50 mg Q6H PRN PO 01/29/17 13:15 02/28/17 13:14 01/31/17 12:30 50 MG Gabapentin (Neurontin Cap) 200 mg TID PO 01/30/17 09:00 02/28/17 13:59 02/05/17 09:01 200 MG Sodium Bicarbonate (Sodium Bicarbonate Tab) 1,300 mg TID PO 02/01/17 21:00 03/03/17 20:59 02/05/17 09:01 1,300 MG Norepinephrine Bitartrate 8 mg/ Dextrose 508 ml @ 0 mls/hr Q0M PRN IV 02/01/17 15:13 03/03/17 15:12 02/03/17 01:58 29.6 MLS/HR Chlorhexidine Gluconate (Peridex Oral Soln) 15 ml DAILY MT 02/02/17 09:00 03/04/17 08:59 02/05/17 09:00 15 ML Ipratropium [place] (Atrovent Hfa Inhaler) 4 puffs Q6R INH 02/01/17 21:05 03/03/17 21:04 02/05/17 07:33 4 PUFFS Levalbuterol (Xopenex Hfa Inhaler) 4 puffs Q6R INH 02/01/17 21:05 03/03/17 21:04 02/05/17 07:33 4 PUFFS Heparin Sodium/ Dextrose 500 ml @ 17 mls/hr Q24H PRN IV 02/02/17 09:45 03/04/17 09:44 02/05/17 06:21 17 MLS/HR Midazolam HCl 250 ml @ 0 mls/hr Q0M PRN IV 02/02/17 10:00 03/04/17 09:59 02/04/17 05:31 12 MLS/HR Fentanyl Citrate 250 ml @ 0 mls/hr Q0M PRN IV 02/02/17 10:00 02/16/17 09:59 02/05/17 02:14 10 MLS/HR Miscellaneous Information (Consult Glycemic Management Pharmacy) 1 ea UD PRN N/A 02/02/17 13:44 03/04/17 13:43 Glucose (Glucose 40% Gel) UD PRN PO 02/02/17 15:15 03/04/17 15:14 Glucose (Glucose Chew Tab) 1 tabs UD PRN PO 02/02/17 15:15 03/04/17 15:14 Dextrose (Dextrose 50% 50ML Syringe) 50 ml UD PRN IV 02/02/17 15:15 03/04/17 15:14 02/03/17 09:09 50 ML Glucagon (Glucagon Inj) 1 mg UD PRN SQ 02/02/17 15:15 03/04/17 15:14 Acetaminophen (Tylenol Soln) 650 mg Q4H PRN PO 02/02/17 19:00 03/04/17 18:59 Ceftriaxone Sodium 2000 mg/ Dextrose 70 ml @ 140 mls/hr DAILY@1400 IV 02/03/17 14:00 02/17/17 13:59 02/04/17 13:47 140 MLS/HR Enteral Nutritional Formula (Peptamen Intense VHP) 1,000 ml UD PRN OG 02/04/17 09:00 03/06/17 08:59 02/04/17 17:45 1,000 ML Insulin Aspart (novoLOG ASPART) SLIDING SCALE Q4 SC 02/04/17 17:00 03/06/17 16:59 02/05/17 07:46 4 UNITS Insulin Glargine (Lantus Solostar Pen) BID SC 02/04/17 21:00 03/06/17 20:59 02/05/17 09:03 10 UNITS Hydrocortisone Sodium Succinate 100 mg/Syringe 2 ml @ 4 mls/min BID IV 02/04/17 21:00 18 08:59 02/05/17 09:00 4 MLS/MIN Pantoprazole Sodium 40 mg/ Syringe 10 ml @ 5 mls/min QAM IV 02/05/17 09:00 03/03/17 20:59 02/05/17 09:00 5 MLS/MIN Methylcellulose (Citrucel Powder) 1 gm BID PO 02/04/17 21:00 03/06/17 20:59 02/05/17 09:00 1 GM Potassium Acetate 40 meq/Sodium Chloride 520 ml @ 130 mls/hr BID@1030,2000 IV 02/05/17 10:30 02/05/17 23:59 02/05/17 10:28 130 MLS/HR Potassium Chloride 10 meq/ Prmx 100 ml @ 100 mls/hr Q1H IV 02/05/17 14:30 02/05/17 18:29 Furosemide 40 mg/ Syringe 4 ml @ 4 mls/min TID IV 02/05/17 10:30 02/05/17 22:00 02/05/17 10:51 4 MLS/MIN Vital Signs: Date Time Temp Pulse Resp B/P (MAP) Pulse Ox O2 Delivery O2 Flow Rate FiO2 02/05/17 11:01 80 15 125/65 (85) 90 Mask 50 02/05/17 10:00 86 20 132/72 (92) 97 CPAP 40 Mechanical Ventilator 02/05/17 09:01 80 18 135/73 (93) 97 CPAP 40 Mechanical Ventilator 02/05/17 08:00 36.8 86 19 129/70 (89) 95 CPAP 40 Mechanical Ventilator 02/05/17 07:31 40 02/05/17 06:01 75 16 127/69 (88) 98 02/05/17 05:16 40 02/05/17 05:02 77 20 155/87 (105) 93 02/05/17 04:01 84 16 126/70 (85) 93 02/05/17 04:00 95 Mechanical Ventilator 40 02/05/17 04:00 36.8 02/05/17 04:00 40 02/05/17 03:01 78 16 126/70 (84) 96 02/05/17 02:01 72 13 110/67 (80) 95 02/05/17 01:57 40 02/05/17 01:01 88 25 128/74 (91) 92 02/05/17 00:01 85 24 136/76 (95) 98 02/05/17 00:01 36.8 02/04/17 23:59 40 02/04/17 23:59 100 Mechanical Ventilator 40 02/04/17 23:01 87 21 120/69 (80) 100 02/04/17 22:50 40 02/04/17 22:01 89 20 132/70 (80) 100 02/04/17 21:01 98 22 123/69 (82) 97 02/04/17 20:01 94 22 133/81 (103) 97 02/04/17 20:00 36.9 02/04/17 20:00 40 02/04/17 20:00 99 CPAP 40 Mechanical Ventilator 02/04/17 19:31 40 02/04/17 19:01 93 22 127/68 (84) 96 02/04/17 18:00 89 23 127/71 (89) 99 CPAP 40 Mechanical Ventilator 02/04/17 17:03 40 02/04/17 16:00 Mechanical Ventilator 40 02/04/17 16:00 40 02/04/17 16:00 36.8 85 19 126/70 (88) 100 Mechanical Ventilator 40 02/04/17 14:42 40 02/04/17 14:00 92 21 143/81 (101) 95 Mechanical Ventilator Laboratory Results: Last 24 Hours Test 02/04/17 12:18 02/04/17 13:29 02/04/17 14:40 02/04/17 15:35 Bedside Glucose 192 mg/dl 208 mg/dl 190 mg/dl 163 mg/dl Test 02/04/17 16:50 02/04/17 18:09 02/04/17 20:27 02/04/17 23:31 Bedside Glucose 150 mg/dl 202 mg/dl 190 mg/dl Absolute Reticulocyte Count 0.05 10^6/uL Percent Reticulocyte Count 1.8 % Sodium Level 139 mmol/L Potassium Level 4.1 mmol/L Chloride Level 107 mmol/L Carbon Dioxide Level 28 mmol/L Anion Gap 4.0 mmol/L Blood Urea Nitrogen 54 mg/dl Creatinine 1.50 mg/dl Est Creatinine Clear Calc Drug Dose 41.6 ml/min Estimated GFR () 43.7 Estimated GFR (Non- 37.7 BUN/Creatinine Ratio 35.8 Random Glucose 164 mg/dl Calcium Level 7.8 mg/dl Test 02/05/17 03:40 02/05/17 05:17 02/05/17 06:00 02/05/17 10:11 Bedside Glucose 224 mg/dl White Blood Count 15.33 K/uL Red Blood Count 2.82 M/uL Hemoglobin 7.7 g/dL Hematocrit 25.0 % Mean Corpuscular Volume 88.7 fL Mean Corpuscular Hemoglobin 27.3 pg Mean Corpuscular Hemoglobin Concent 30.8 g/dl Platelet Count 112 K/uL Mean Platelet Volume 12.8 fL Neutrophils (%) (Auto) 88.4 % Lymphocytes (%) (Auto) 5.0 % Monocytes (%) (Auto) 3.6 % Eosinophils (%) (Auto) 0.0 % Basophils (%) (Auto) 0.1 % Neutrophils # (Auto) 13.56 K/uL Lymphocytes # (Auto) 0.77 K/uL Monocytes # (Auto) 0.55 K/uL Eosinophils # (Auto) 0.00 K/uL Basophils # (Auto) 0.01 K/uL RDW Standard Deviation 61.5 fL RDW Coefficient of Variation 21.2 % Immature Granulocyte % (Auto) 2.9 % Immature Granulocyte # (Auto) 0.44 K/uL Platelet Estimate DECREASED Anisocytosis PRESENT Ovalocytes 1+ Activated Partial Thromboplast Time 41.8 SECONDS Partial Thromboplastin Ratio 1.6 Sodium Level 141 mmol/L Potassium Level 3.3 mmol/L Chloride Level 105 mmol/L Carbon Dioxide Level 29 mmol/L Anion Gap 7.0 mmol/L Blood Urea Nitrogen 57 mg/dl Creatinine 1.41 mg/dl Est Creatinine Clear Calc Drug Dose 44.4 ml/min Estimated GFR () 47.1 Estimated GFR (Non- 40.7 BUN/Creatinine Ratio 40.3 Random Glucose 179 mg/dl Calcium Level 7.8 mg/dl Phosphorus Level 2.8 mg/dl Magnesium Level 1.9 mg/dl Blood Gas Sample Site R Radial R Radial Bedside Blood Gas pH (LAB) 7.44 7.49 Bedside Blood Gas pCO2 (LAB) 43 mmHg 40 mmHg Bedside Blood Gas pO2 (LAB) 116 mmHg 76 mmHg Bedside Blood Gas HCO3 (LAB) 29 meq/L 30 meq/L Bedside Blood Gas Total CO2 30 mEq/l 31 mEq/l Bedside Blood Gas Base Excess (LAB) 5.0 meq/L 6.0 meq/L Bedside Blood Gas O2 Saturation 99.0 % 96.0 % Andrae Test Pass Pass Oxygen Delivery Device Ventilator Ventilator Bedside FiO2 40 % 40 % Blood Gas PEEP 10 5
[2017-02-05 12:58] LABS: PTT PATIENT 40.8 SECONDS (21.0-31.0)
--- NOTE | 2017-02-05 13:01 | Pharmacy Progress Note ---
Glycemic Control Progress Note Date of Service Feb 05, 2017. Scope Glycemic Pharmacist consulted for glycemic control to write orders per [facility] ED inpatient glycemic control protocol. Objective Accuchecks BSG (last 24hrs): Test 02/04/17 13:29 02/04/17 14:40 02/04/17 15:35 02/04/17 16:50 Bedside Glucose 208 mg/dl (70-90) 190 mg/dl (70-90) 163 mg/dl (70-90) 150 mg/dl (70-90) Test 02/04/17 18:09 02/04/17 20:27 02/04/17 23:31 02/05/17 03:40 Random Glucose 164 mg/dl (70-99) Bedside Glucose 202 mg/dl (70-90) 190 mg/dl (70-90) 224 mg/dl (70-90) Test 02/05/17 05:17 Random Glucose 179 mg/dl (70-99) HbA1c: Test 02/03/17 04:03 Hemoglobin A1c 6.6 % (4.5-5.6) H Recent Pertinent Medications The patient is currently receiving: * Lantus 25 units SC x1 (administered at 02/04 @ 1030) then BID based on BSG * 0 units for BSG less than 140 mg/dL * 10 units for BSG 140-180 mg/dL * 15 units for BSG greater than 180 mg/dL * Novolog ongoing q4h while on tubefeeds * Goal range: 140-180 mg/dL * Correction factor: 15 mg/dL/unit * Carbohydrate ratio: 1 unit insulin for every 6 g CHO consumed (based on Peptamen VHP rate) Outpatient Anti-Diabetic Meds None Assessment & Plan ASSESSMENT: 02/04/17 * Remains on insulin gtt, currently running at 1.7 units/hr - OK to transition to basal/bolus per ICU rounds. * Changes to stressors: norepinephrine stopped, Peptamen advanced to 40 mL/hr * Will give Lantus weight-based stress of 3 x1 dose to transition off insulin drip. Ongoing BID weight-based but dependent on BSG. * Will give Novolog x1 now to cover CHO in tube feeds. Will give another x1 dose in 4 hours, then ongoing q4h with high goal range and dosed weight based between stress of 2 and 3 02/05/17 * Drip transitioned off yesterday. Two BSG's in low 200's since then, but most recent is 149 mg/dL. * Changes to stressors * Tubefeeds held in anticipation of extubation. * Patient extubated this AM. * Hydrocortisone tapered from 100 mg IV q8h to BID * Anticipate insulin sensitivity to increase. * Therefore, will keep Lantus the same despite some BSG's > 200 mg/dL overnight. * OK to tighten CHO ratio as most elevations seem to be due to tubefeeds/ steroids. * Note: tightening will not increase insulin administered by too much as Peptamen [facility] provides only 16 g CHO q4h PLAN FOR INPATIENT GLYCEMIC CONTROL: * Lantus SC BID based on BSG * 0 units for BSG less than 140 mg/dL * 10 units for BSG 140-180 mg/dL * 15 units for BSG greater than 180 mg/dL * Novolog ongoing q4h while on tubefeeds, starting at 1700 * Goal range: 140-180 mg/dL * Correction factor: 15 mg/dL/unit * Tighten Carbohydrate ratio: 1 unit insulin for every 4 g CHO consumed (based on Peptamen [facility] rate) * Please note that the plan above was derived based on current level of insulin resistance and hospital stress. These recommendations are appropriate for inpatient admission only. Plan of care upon discharge will need to be reassessed to avoid potential outpatient hypo/hyperglycemia. Thank you.
[2017-02-05] MEDS: CEFTRIAXONE SOD INJ 2000 MG in DEXTROSE 5% 50ML IV SCH (13:58)
[2017-02-05] MEDS ORDERED: HEPARIN IV BOLUS 4,500 UNIT in SYRINGE 0 ML IV ONE (14:00)
[2017-02-05] MEDS: POTASSIUM CHLR 10MEQ / WTR IV SCH ×4 (14:39→18:11)
--- NOTE | 2017-02-05 16:46 | Progress Note ---
Medicine Progress Note Date & Time of Visit: Feb 05, 2017 at 16:31. Subjective Pt was seen and examined Lying in bed with some respiratory distress with as bedside She was extubated today Able to follow simple commands Objective Last 8 Hrs Date Time Temp Pulse Resp B/P (MAP) Pulse Ox O2 Delivery O2 Flow Rate FiO2 02/05/17 14:00 68 18 127/72 (90) 92 Mask 50 02/05/17 12:01 80 15 151/76 (101) 93 Mask 50 02/05/17 12:00 94 Mask 60 02/05/17 12:00 36.8 86 19 151/76 (101) 95 Mask 50 02/05/17 11:01 80 15 125/65 (85) 90 Mask 50 02/05/17 10:00 86 20 132/72 (92) 97 CPAP 40 Mechanical Ventilator 02/05/17 09:01 80 18 135/73 (93) 97 CPAP 40 Mechanical Ventilator Physical Exam: General-extubated/ lethargy Head- atraumatic Eyes- PERRL ENT- Extubated Neck- no JVD Lungs- Coarse BS Heart- regular rhythm Abdomen- normal bowel sounds Neuro- lethargy, able to follow simple commands, able to squeeze my fingers Skin- warm & dry Laboratory Results: Last 24 Hours Test 02/04/17 16:50 02/04/17 18:09 02/04/17 20:27 02/04/17 23:31 Bedside Glucose 150 mg/dl 202 mg/dl 190 mg/dl Absolute Reticulocyte Count 0.05 10^6/uL Percent Reticulocyte Count 1.8 % Sodium Level 139 mmol/L Potassium Level 4.1 mmol/L Chloride Level 107 mmol/L Carbon Dioxide Level 28 mmol/L Anion Gap 4.0 mmol/L Blood Urea Nitrogen 54 mg/dl Creatinine 1.50 mg/dl Est Creatinine Clear Calc Drug Dose 41.6 ml/min Estimated GFR () 43.7 Estimated GFR (Non- 37.7 BUN/Creatinine Ratio 35.8 Random Glucose 164 mg/dl Calcium Level 7.8 mg/dl Test 02/05/17 03:40 02/05/17 05:17 02/05/17 06:00 02/05/17 07:39 Bedside Glucose 224 mg/dl 171 mg/dl White Blood Count 15.33 K/uL Red Blood Count 2.82 M/uL Hemoglobin 7.7 g/dL Hematocrit 25.0 % Mean Corpuscular Volume 88.7 fL Mean Corpuscular Hemoglobin 27.3 pg Mean Corpuscular Hemoglobin Concent 30.8 g/dl Platelet Count 112 K/uL Mean Platelet Volume 12.8 fL Neutrophils (%) (Auto) 88.4 % Lymphocytes (%) (Auto) 5.0 % Monocytes (%) (Auto) 3.6 % Eosinophils (%) (Auto) 0.0 % Basophils (%) (Auto) 0.1 % Neutrophils # (Auto) 13.56 K/uL Lymphocytes # (Auto) 0.77 K/uL Monocytes # (Auto) 0.55 K/uL Eosinophils # (Auto) 0.00 K/uL Basophils # (Auto) 0.01 K/uL RDW Standard Deviation 61.5 fL RDW Coefficient of Variation 21.2 % Immature Granulocyte % (Auto) 2.9 % Immature Granulocyte # (Auto) 0.44 K/uL Platelet Estimate DECREASED Anisocytosis PRESENT Ovalocytes 1+ Activated Partial Thromboplast Time 41.8 SECONDS Partial Thromboplastin Ratio 1.6 Sodium Level 141 mmol/L Potassium Level 3.3 mmol/L Chloride Level 105 mmol/L Carbon Dioxide Level 29 mmol/L Anion Gap 7.0 mmol/L Blood Urea Nitrogen 57 mg/dl Creatinine 1.41 mg/dl Est Creatinine Clear Calc Drug Dose 44.4 ml/min Estimated GFR () 47.1 Estimated GFR (Non- 40.7 BUN/Creatinine Ratio 40.3 Random Glucose 179 mg/dl Calcium Level 7.8 mg/dl Phosphorus Level 2.8 mg/dl Magnesium Level 1.9 mg/dl Blood Gas Sample Site R Radial Bedside Blood Gas pH (LAB) 7.44 Bedside Blood Gas pCO2 (LAB) 43 mmHg Bedside Blood Gas pO2 (LAB) 116 mmHg Bedside Blood Gas HCO3 (LAB) 29 meq/L Bedside Blood Gas Total CO2 30 mEq/l Bedside Blood Gas Base Excess (LAB) 5.0 meq/L Bedside Blood Gas O2 Saturation 99.0 % Andrae Test Pass Oxygen Delivery Device Ventilator Bedside FiO2 40 % Blood Gas PEEP 10 Test 02/05/17 10:11 02/05/17 12:08 02/05/17 12:36 02/05/17 15:43 Blood Gas Sample Site R Radial Bedside Blood Gas pH (LAB) 7.49 Bedside Blood Gas pCO2 (LAB) 40 mmHg Bedside Blood Gas pO2 (LAB) 76 mmHg Bedside Blood Gas HCO3 (LAB) 30 meq/L Bedside Blood Gas Total CO2 31 mEq/l Bedside Blood Gas Base Excess (LAB) 6.0 meq/L Bedside Blood Gas O2 Saturation 96.0 % Andrae Test Pass Oxygen Delivery Device Ventilator Bedside FiO2 40 % Blood Gas PEEP 5 Bedside Glucose 149 mg/dl 177 mg/dl Activated Partial Thromboplast Time 40.8 SECONDS Partial Thromboplastin Ratio 1.6 Assessment & Plan ACUTE RESPIRATORY FAILURE Possible related to ARDS, pulmonary edema Intubated on vent support Chest x-ray with unchanged bilateral patchy pulmonary opacities Unable to get CTA chest due to VAUGHN Received IV lasix again today CXR today showed improvement in the pulmonary edema Monitor I/O Continue IV Rocephin Repeat blood cx no growth 02/05 S/P extubated has been on high flow oxygen Versed and fentanyl drip d/c Palliative care plan to have a family meeting to readjust code status SEPSIS Pyelonephritis/bacteremia Blood cultures and Urine culture grew Escherichia coli Elevated lactic acid on admission, now normal Off pressor pressor Repeat cx no growth On Rocephin IV ID on board Endometrial carcinoma Continue follow with Oncology Dr. García ANEMIA Hemoglobin today 7.7 No clear source of bleeding Pancytopenia secondary to chemotherapy for endometrial cancer Monitor CBC and transfused if needed FACTOR V LEYDEN DEFICIENCY No prior history of thrombotic disease Has not been on chronic outpatient anticoagulation on heparin drip secondary to sepsis Lower extremity duplex negative for DVT VAUGHN Renal ultrasound showed no hydronephrosis Creatinine continue improving 1.4 today Continue monitor BMP closely ELECTROLYTES IMBALANCE K 3.3 today K replaced Continue monitor BMP DVT PX on heparin drip CODE STATUS FULL CODE Current Inpatient Medications: Current Inpatient Medications Medications (Trade) Dose Ordered Sig/Alek Route Start Time Stop Time Status Last Admin Dose Admin Prochlorperazine Edisylate 5 mg/ Syringe 5 ml @ 5 mls/min Q6H PRN IV 01/29/17 13:00 02/28/17 12:59 Levothyroxine Sodium (Synthroid Tab) 100 mcg DAILYBB PO 01/30/17 06:00 03/01/17 05:59 02/05/17 05:13 100 MCG Lorazepam (Ativan Tab) 0.5 mg BID PRN PO 01/29/17 13:15 02/28/17 13:14 02/01/17 04:12 0.5 MG Sertraline HCl (Zoloft Tab) 200 mg HS PO 01/29/17 21:00 02/28/17 20:59 02/04/17 20:46 200 MG Tramadol HCl (Ultram Tab) 50 mg Q6H PRN PO 01/29/17 13:15 02/28/17 13:14 01/31/17 12:30 50 MG Gabapentin (Neurontin Cap) 200 mg TID PO 01/30/17 09:00 02/28/17 13:59 02/05/17 14:23 200 MG Sodium Bicarbonate (Sodium Bicarbonate Tab) 1,300 mg TID PO 02/01/17 21:00 03/03/17 20:59 02/05/17 09:01 1,300 MG Norepinephrine Bitartrate 8 mg/ Dextrose 508 ml @ 0 mls/hr Q0M PRN IV 02/01/17 15:13 03/03/17 15:12 02/03/17 01:58 29.6 MLS/HR Chlorhexidine Gluconate (Peridex Oral Soln) 15 ml DAILY MT 02/02/17 09:00 03/04/17 08:59 02/05/17 09:00 15 ML Heparin Sodium/ Dextrose 500 ml @ 20 mls/hr Q24H PRN IV 02/02/17 09:45 03/04/17 09:44 02/05/17 13:59 20 MLS/HR Midazolam HCl 250 ml @ 0 mls/hr Q0M PRN IV 02/02/17 10:00 03/04/17 09:59 02/04/17 05:31 12 MLS/HR Fentanyl Citrate 250 ml @ 0 mls/hr Q0M PRN IV 02/02/17 10:00 02/16/17 09:59 02/05/17 02:14 10 MLS/HR Miscellaneous Information (Consult Glycemic Management Pharmacy) 1 ea UD PRN N/A 02/02/17 13:44 03/04/17 13:43 Glucose (Glucose 40% Gel) UD PRN PO 02/02/17 15:15 03/04/17 15:14 Glucose (Glucose Chew Tab) 1 tabs UD PRN PO 02/02/17 15:15 03/04/17 15:14 Dextrose (Dextrose 50% 50ML Syringe) 50 ml UD PRN IV 02/02/17 15:15 03/04/17 15:14 02/03/17 09:09 50 ML Glucagon (Glucagon Inj) 1 mg UD PRN SQ 02/02/17 15:15 03/04/17 15:14 Acetaminophen (Tylenol Soln) 650 mg Q4H PRN PO 02/02/17 19:00 03/04/17 18:59 Ceftriaxone Sodium 2000 mg/ Dextrose 70 ml @ 140 mls/hr DAILY@1400 IV 02/03/17 14:00 02/17/17 13:59 02/05/17 13:58 140 MLS/HR Enteral Nutritional Formula (Peptamen Intense VHP) 1,000 ml UD PRN OG 02/04/17 09:00 03/06/17 08:59 02/04/17 17:45 1,000 ML Insulin Aspart (novoLOG ASPART) SLIDING SCALE Q4 SC 02/04/17 17:00 03/06/17 16:59 02/05/17 07:46 4 UNITS Insulin Glargine (Lantus Solostar Pen) BID SC 02/04/17 21:00 03/06/17 20:59 02/05/17 09:03 10 UNITS Hydrocortisone Sodium Succinate 100 mg/Syringe 2 ml @ 4 mls/min BID IV 02/04/17 21:00 03/05/17 08:59 02/05/17 09:00 4 MLS/MIN Pantoprazole Sodium 40 mg/ Syringe 10 ml @ 5 mls/min QAM IV 02/05/17 09:00 03/03/17 20:59 02/05/17 09:00 5 MLS/MIN Methylcellulose (Citrucel Powder) 1 gm BID PO 02/04/17 21:00 03/06/17 20:59 02/05/17 09:00 1 GM Potassium Acetate 40 meq/Sodium Chloride 520 ml @ 130 mls/hr BID@1030,2000 IV 02/05/17 10:30 02/05/17 23:59 02/05/17 10:28 130 MLS/HR Potassium Chloride 10 meq/ Prmx 100 ml @ 100 mls/hr Q1H IV 02/05/17 14:30 02/05/17 18:29 02/05/17 15:37 100 MLS/HR Furosemide 40 mg/ Syringe 4 ml @ 4 mls/min TID IV 02/05/17 10:30 02/05/17 22:00 02/05/17 15:39 4 MLS/MIN
[2017-02-05 20:29] LABS: PTT PATIENT 80.1 SECONDS (21.0-31.0)
[2017-02-05] MEDS: SERTRALINE HCL 100 MG TAB PO SCH (20:52)
[2017-02-06] VITALS (15 sets, daily range): BP systolic 110–156; BP diastolic 60–138; PULSE 55–67; TEMP 36.5–37; O2SAT 89–98
[2017-02-06] MEDS: HEPARIN 25,000 UNIT/500ML D5W 500 ML IV PRN ×2 (00:16→02:53)
[2017-02-06 02:30] LABS: BASO % 0.1 %; BASO ABS # 0.01 K/uL (0-0.2); HEMATOCRIT 26.2 % (37-47); HEMOGLOBIN 8.3 g/dL (12.0-16.0); IG# 0.63 K/uL (0.00-0.02); LYMPH % 6.4 %; LYMPH ABS # 0.91 K/uL (1.2-3.4); MEAN CELL VOLUME 88.5 fL (80-100); MEAN CORPUSCULAR HGB CONC 31.7 g/dl (32-36); MEAN PLATELET VOLUME 11.6 fL (7.4-10.4); MONO % 4.2 %; NEUT % 84.8 %; NEUT ABS # 11.98 K/uL (1.4-6.5); PLATELET COUNT 132 K/uL (130-400); RED CELL DISTRIBUTION WIDTH CV 21.4 % (11.5-14.5); RED CELL DISTRIBUTION WIDTH SD 59.2 fL (36.4-46.3); WHITE BLOOD COUNT 14.13 K/uL (4.8-10.8)
[2017-02-06 02:39] LABS: PTT PATIENT 44.8 SECONDS (21.0-31.0)
[2017-02-06 02:47] LABS: CALCIUM 7.9 mg/dl (8.5-10.1); CREATININE 1.14 mg/dl (0.60-1.20); POTASSIUM 3.6 mmol/L (3.5-5.1)
[2017-02-06 02:48] LABS: PHOSPHORUS 2.6 mg/dl (2.5-4.9)
[2017-02-06] MEDS ORDERED: HEPARIN IV BOLUS 3,000 UNIT in SYRINGE 0 ML IV ONE (03:00)
[2017-02-06] MEDS: INSULIN ASPART 100 UNITS/ML 3 ML PEN SC SCH ×6 (03:47→21:00)
[2017-02-06] MEDS: LEVOTHYROXINE 100 MCG TAB PO SCH (06:08)
[2017-02-06] MEDS: HYDROCORTISONE IV 100 MG in SYRINGE 0 ML IV SCH (09:10)
[2017-02-06] MEDS: CHLORHEXIDINE GLUCONATE 0.12% 480 ML MT SCH (09:10)
[2017-02-06] MEDS: PANTOprazole INJ 40 MG in SYRINGE 0 ML IV SCH (09:10)
[2017-02-06] MEDS: GABAPENTIN 100 MG CAP PO SCH ×3 (09:11→21:12)
[2017-02-06] MEDS: METHYLCELLULOSE POWDER 454 GM JAR PO SCH ×2 (09:11→21:00)
[2017-02-06] MEDS: SODIUM BICARBONATE 650 MG TAB PO SCH ×2 (09:11→14:07)
[2017-02-06] MEDS: INSULIN GLARGINE SOLOSTAR 100 UNITS/ML 3 ML PEN SC SCH ×2 (09:14→21:00)
[2017-02-06] MEDS: ENOXAPARIN 150 MG/1ML SYR SQ SCH (09:34)
[2017-02-06 09:35] LABS: PTT PATIENT 67.3 SECONDS (21.0-31.0)
[2017-02-06 09:37] LABS: ALBUMIN 1.6 gm/dl (3.4-5.0); TOTAL PROTEIN 4.6 gm/dl (6.4-8.2)
--- NOTE | 2017-02-06 13:22 | Palliative Care Consultation ---
Consultation Date of Consultation: Feb 06, 2017. Requesting Physician: Don Vaughan PA-C Attending Physician: Dr. Samuels Reason for Consultation: Goals of care History of Present Illness This 61 year old female patient with PMH localized endometrial cancer, hypothyroidism, htn, depression, factor V Leiden, and others listed below, presented with weakness, nausea, vomiting, and diarrhea since starting her chemotherapy on 12/31/16. She was in hospital 01/08 for such complaints as well as electrolyte imbalance. This admission, patient also found to have neutropenia , pneumonia and respiratory failure. She was transferred to ICU and intubated. Patient has successfully been extubated and is now on Oxymask. After multiple discussions with patient's family by the intensive care team, the decision was made to make patient a DNR and DNI in the event of respiratory failure again. Patient is also being treated for VAUGHN, sepsis/bacteremia (E.coli in blood and urine), anemia, and electrolyte imbalance. She is more stable, but still quite ill. Ongoing conversations about goals of care/palliation/patient and family wishes will need to be had. Palliative care is consulted to assist with establishing goals of care. I met with the patient, her Haile, and daughter Aby in room 106. Family meeting was held last night outside of patient's room as patient was still not cognisant enough to participate in the conversation. During that conversation, patient was changed to DNR/DNI. Family wishes to continue with current medical management at this point but probably no escalation in care should another life-threatening event occur. It is uncertain at this time whether or not patient will/can continue with treatment for the cancer. Family did not want to go further into detail in front of patient at this time. I gave daughter Aby my card and made myself available to them. I let them know I would be following. Called and left a message for patient's other daughter, Nedra. Past Medical/Surgical History Medical History: B12 deficiency Htn Depression DM type 2 Dyslipidemia Factor V Leiden Hypothyroidism Osteoarthritis Falls Total hip replacement UTI Bilateral knee arthroplasty Cholecystectomy Gastric bypass 07/06/06 Social History Smoking Status: Never Smoker History of Alcohol Use: No Drug Use: none Marital Status: Housing Status: lives with family Occupation Status: disabled Review of Systems Constitutional: + weakness ENT: No trouble swallowing Respiratory: + shortness of breath, + dyspnea at rest Cardiac: + edema, No chest pain Abdomen: + pain (RUQ), No nausea, No vomiting Female : No problem reported Neurologic: + memory loss (of recent events while in hospital) Psychiatric: No anxiety Allergies Coded Allergies: No Known Allergies (Verified , 01/29/17) Medications Current Inpatient Medications Medications (Trade) Dose Ordered Sig/Alek Route Start Time Stop Time Status Last Admin Dose Admin Prochlorperazine Edisylate 5 mg/ Syringe 5 ml @ 5 mls/min Q6H PRN IV 01/29/17 13:00 02/28/17 12:59 Levothyroxine Sodium (Synthroid Tab) 100 mcg DAILYBB PO 01/30/17 06:00 03/01/17 05:59 02/06/17 06:08 100 MCG Lorazepam (Ativan Tab) 0.5 mg BID PRN PO 01/29/17 13:15 02/28/17 13:14 02/01/17 04:12 0.5 MG Sertraline HCl (Zoloft Tab) 200 mg HS PO 01/29/17 21:00 02/28/17 20:59 02/05/17 20:52 200 MG Tramadol HCl (Ultram Tab) 50 mg Q6H PRN PO 01/29/17 13:15 02/28/17 13:14 01/31/17 12:30 50 MG Gabapentin (Neurontin Cap) 200 mg TID PO 01/30/17 09:00 02/28/17 13:59 02/06/17 09:11 200 MG Sodium Bicarbonate (Sodium Bicarbonate Tab) 1,300 mg TID PO 02/01/17 21:00 03/03/17 20:59 02/06/17 09:11 1,300 MG Norepinephrine Bitartrate 8 mg/ Dextrose 508 ml @ 0 mls/hr Q0M PRN IV 02/01/17 15:13 03/03/17 15:12 02/03/17 01:58 29.6 MLS/HR Chlorhexidine Gluconate (Peridex Oral Soln) 15 ml DAILY MT 02/02/17 09:00 03/04/17 08:59 02/06/17 09:10 15 ML Midazolam HCl 250 ml @ 0 mls/hr Q0M PRN IV 02/02/17 10:00 03/04/17 09:59 12/20/17 05:31 12 MLS/HR Fentanyl Citrate 250 ml @ 0 mls/hr Q0M PRN IV 02/02/17 10:00 02/16/17 09:59 02/05/17 02:14 10 MLS/HR Miscellaneous Information (Consult Glycemic Management Pharmacy) 1 ea UD PRN N/A 02/02/17 13:44 03/04/17 13:43 Glucose (Glucose 40% Gel) UD PRN PO 02/02/17 15:15 03/04/17 15:14 Glucose (Glucose Chew Tab) 1 tabs UD PRN PO 02/02/17 15:15 03/04/17 15:14 Dextrose (Dextrose 50% 50ML Syringe) 50 ml UD PRN IV 02/02/17 15:15 03/04/17 15:14 02/03/17 09:09 50 ML Glucagon (Glucagon Inj) 1 mg UD PRN SQ 02/02/17 15:15 03/04/17 15:14 Acetaminophen (Tylenol Soln) 650 mg Q4H PRN PO 02/02/17 19:00 03/04/17 18:59 02/06/17 08:03 650 MG Ceftriaxone Sodium 2000 mg/ Dextrose 70 ml @ 140 mls/hr DAILY@1400 IV 02/03/17 14:00 02/17/17 13:59 02/05/17 13:58 140 MLS/HR Enteral Nutritional Formula (Peptamen Intense VHP) 1,000 ml UD PRN OG 02/04/17 09:00 03/06/17 08:59 02/04/17 17:45 1,000 ML Insulin Aspart (novoLOG ASPART) SLIDING SCALE Q4 SC 02/04/17 17:00 03/06/17 16:59 02/05/17 07:46 4 UNITS Insulin Glargine (Lantus Solostar Pen) BID SC 02/04/17 21:00 03/06/17 20:59 02/06/17 09:14 10 UNITS Hydrocortisone Sodium Succinate 100 mg/Syringe 2 ml @ 4 mls/min BID IV 02/04/17 21:00 03/05/17 08:59 02/06/17 09:10 4 MLS/MIN Pantoprazole Sodium 40 mg/ Syringe 10 ml @ 5 mls/min QAM IV 02/05/17 09:00 03/03/17 20:59 02/06/17 09:10 5 MLS/MIN Methylcellulose (Citrucel Powder) 1 gm BID PO 02/04/17 21:00 03/06/17 20:59 02/06/17 09:11 1 GM Enoxaparin Sodium (Lovenox Inj) 129 mg DAILY@0900 SQ 02/06/17 09:30 03/08/17 09:29 02/06/17 09:34 129 MG Physical Exam Date Time Temp Pulse Resp B/P (MAP) Pulse Ox O2 Delivery O2 Flow Rate FiO2 02/06/17 10:00 61 16 113/64 (80) 91 Oxymask 7.0 02/06/17 08:00 93 Oxymask 11.0 02/06/17 08:00 36.6 57 17 129/64 (85) 93 Oxymask 9.0 02/06/17 06:01 64 14 119/64 (69) 92 02/06/17 04:01 56 19 110/60 (72) 94 02/06/17 04:00 94 Oxymask 11.0 02/06/17 04:00 36.6 02/06/17 02:01 65 18 129/74 (86) 95 02/06/17 00:01 36.8 02/06/17 00:01 60 15 124/75 (86) 93 02/05/17 23:59 94 Oxymask 15.0 02/05/17 22:01 70 24 122/67 (92) 90 02/05/17 20:01 61 23 130/70 (91) 93 02/05/17 20:00 91 Mask 50 02/05/17 20:00 36.5 02/05/17 19:01 81 15 137/72 (85) 92 02/05/17 18:00 65 22 136/78 (97) 91 Mask 50 02/05/17 17:00 70 15 135/82 (99) 91 Mask 50 02/05/17 16:00 91 Mask 50 02/05/17 16:00 36.8 69 15 127/75 (92) 91 Mask 50 02/05/17 15:00 62 24 133/76 (95) 93 Mask 50 02/05/17 14:00 68 18 127/72 (90) 92 Mask 50 General Appearance: no apparent distress, + obese, + pertinent finding ( chronically ill appearing) ENT: hearing grossly normal Neck: supple, no JVD Respiratory: no respiratory distress, no accessory muscle use, + decreased breath sounds, + pertinent finding (on oxymask) Cardiovascular: regular rate, rhythm, + normal peripheral pulses Abdomen: normal bowel sounds, soft Neurologic/Psychiatric: alert, normal mood/affect, oriented x 3 (but is forgetful) Skin: normal color Laboratory Results Last 24 Hours Test 02/05/17 15:43 02/05/17 19:29 02/05/17 19:50 02/05/17 23:51 Bedside Glucose 177 mg/dl 152 mg/dl 148 mg/dl Activated Partial Thromboplast Time 80.1 SECONDS Partial Thromboplastin Ratio 3.1 Test 02/06/17 02:14 02/06/17 02:15 02/06/17 03:39 02/06/17 08:44 Activated Partial Thromboplast Time 44.8 SECONDS 67.3 SECONDS Partial Thromboplastin Ratio 1.7 2.6 White Blood Count 14.13 K/uL Red Blood Count 2.96 M/uL Hemoglobin 8.3 g/dL Hematocrit 26.2 % Mean Corpuscular Volume 88.5 fL Mean Corpuscular Hemoglobin 28.0 pg Mean Corpuscular Hemoglobin Concent 31.7 g/dl Platelet Count 132 K/uL Mean Platelet Volume 11.6 fL Neutrophils (%) (Auto) 84.8 % Lymphocytes (%) (Auto) 6.4 % Monocytes (%) (Auto) 4.2 % Eosinophils (%) (Auto) 0.0 % Basophils (%) (Auto) 0.1 % Neutrophils # (Auto) 11.98 K/uL Lymphocytes # (Auto) 0.91 K/uL Monocytes # (Auto) 0.60 K/uL Eosinophils # (Auto) 0.00 K/uL Basophils # (Auto) 0.01 K/uL RDW Standard Deviation 59.2 fL RDW Coefficient of Variation 21.4 % Immature Granulocyte % (Auto) 4.5 % Immature Granulocyte # (Auto) 0.63 K/uL Toxic Granulation OCCASIONAL Anisocytosis PRESENT Sodium Level 141 mmol/L Potassium Level 3.6 mmol/L Chloride Level 103 mmol/L Carbon Dioxide Level 34 mmol/L Anion Gap 4.0 mmol/L Blood Urea Nitrogen 53 mg/dl Creatinine 1.14 mg/dl Est Creatinine Clear Calc Drug Dose 54.9 ml/min Estimated GFR () 61.0 Estimated GFR (Non- 52.6 BUN/Creatinine Ratio 46.3 Random Glucose 148 mg/dl Calcium Level 7.9 mg/dl Phosphorus Level 2.6 mg/dl Magnesium Level 1.9 mg/dl Bedside Glucose 159 mg/dl Total Bilirubin 0.2 mg/dl Direct Bilirubin 0.2 mg/dl Aspartate Amino Transf (AST/SGOT) 25 U/L Alanine Aminotransferase (ALT/SGPT) 17 U/L Alkaline Phosphatase 94 U/L Total Protein 4.6 gm/dl Albumin 1.6 gm/dl Test 02/06/17 12:03 Bedside Glucose 98 mg/dl Assessment & Plan Problem list: Altered mental status SOB/PRATER Respiratory failure Pneumonia VAUGHN Electrolyte imbalance Endometrial cancer- localized disease per notes Neutropenia- resolved Anemia Goals of care (Z51.5) Palliative care recs: -My purpose in today's encounter was to familiarize myself with patient and family and to introduce palliative care as I will be following during hospitalization. -During this admission, we will see how patient progresses and help support patient/family in making medical decisions while making patient's wishes known. -Uncertain at this time what the plan will be going forward as far as continuing with chemotherapy or not. -At the current time, they'd like to continue current medical management for her acute conditions, but no escalation in care if another life-threatening event occurs. As stated, patient is now a DNR/DNI after family meeting was held last evening by critical care team. -I made myself available to patient's family. Thank you kindly for this consult. I will follow up next week when I return.
[2017-02-06] MEDS: CEFTRIAXONE SOD INJ 2000 MG in DEXTROSE 5% 50ML IV SCH (14:04)
--- NOTE | 2017-02-06 14:57 | Critical Care Progress Note ---
Critical Care Progress Note Date of Service Feb 06, 2017. ICU Day ICU Day Number: [address] Lugo Subjective Patient was successfully extubated yesterday. She is doing well with oxygen mask. She is being advanced with a pured diet. She is more alert today. She does complain of a sore throat but no dysphagia. She does not verbalize any other acute complaints. She did have some abdominal pain this morning with deep palpation but no nausea or vomiting. Objective GENERAL : Extubated yesterday. More alert today. No acute distress EYES: No icterus, gaze conjugate. PERRL. NOSE: No evidence of epistaxis. Oxy mask in place MOUTH: No lesions or candidiasis. NECK: No JVD or stridor appreciated. LUNGS: Fine crackles at the bases. No bronchospasm. Diminished breath sounds throughout HEART: Regular, rate controlled in the 80s ABDOMEN: Soft, NT, ND, BS Present. There was tenderness to deep palpation but no rebound tenderness on examination. There was a soft mobile area approximate 3 cm in size there was palpable through the pannus EXTREMITIES: Positive bilateral LE edema, pedal pulses intact NEURO: Awake and alert. Follows commands. No other acute focal deficits Current SOFA Score SOFA Score Response (Comments) Value PaO2/FiO2 (mmHg) < 200 3 SaO2 / FIO2 221 - 301 1 Platelets (x10) < 150 1 Bilirubin (mg/dL) < 1.2 0 Janette Coma Score 13 - 14 1 Level of Hypotension No Hypotension 0 Creatinine (mg/dL) < 1.2 0 Total 6 Assessment & Plan RESPIRATORY FAILURE Secondary to cardiogenic shock, ARDs, pulmonary edema Extubated 02/05 Ceftriaxone for pyelonephritis - Day #8 Also received 5 days of Cefepime No sputum sample collected Blood cultures with Escherichia coli. Urine culture with Escherichia coli Following simple commands Family at bedside and indicating that patient would not want to be re-intubated if persistent respiratory failure ID Pyelonephritis with pancytopenia Ceftriaxone for pyelonephritis - Day #8 Also received 5 days of Cefepime and 2 days of Ciprofloxacin and 1 day of Vancomycin Lactic acid 1.3 on 02/04 Norepinephrine weaned off ID consulted - appreciate Dr. Rene's input HEME Hemoglobin up to 8.3 2 units PRBCs transfused on admission 01/30/2017 No clear source of bleeding Plt count up to 132,000 Pancytopenia secondary to chemotherapy for endometrial cancer Improved with Neupogen 01/30/17 Follow serial labs FACTOR V LEYDEN DEFICIENCY No prior history of thrombotic disease Has not been on chronic outpatient anticoagulation Heparin drip held and patient started on enoxaparin 1 mg/kg daily Lower extremity duplex negative for DVT Unable to scan for pulmonary embolus secondary to acute kidney failure RENAL Pyelonephritis treated with IV Ceftriaxone, Cefepime. and Ciprofloxacin Renal ultrasound with no hydronephrosis IV antibiotics Creatinine 1.41 today - continues with slow improvement daily Hydrocortisone 100 mg BID - Decreased to 50mg IV BID 02/06 ELECTROLYTES Continue to replete Potassium No arrhythmias on telemetry Currently sinus rhythm with a rate in the 80s Follow serial labs IV ACCESS Right triple-lumen IJ catheter removed 02/05/2017 Now PIVs NUTRITION Tube feeds held when extubated Now on pureed diet and seems to be tolerating Appreciate nutrition consult and input DVT PROPHYLAXIS Lower extremity venous Doppler with no evidence of acute DVT Heparin gtt stopped and patient now on Enoxaparin 1 mg/kg daily - started on SCDs CCT: 30 minutes Thank you for including us in the care of this patient. Please refer to Dr. Lugo's addendum for further recommendations I have personally evaluated and examined this patient. I agree with assessment and plan of Narendra Ansari for downgrade out of ICU. Consults & Procedures Consultants: Oncology - Dr. García Procedures: Endotracheal intubation 02/01/2017 RIJ 3L CVC 02/01/2017 Removal of RIJ 3L CVC 02/04/2017 Extubated 02/05/17 Data Medications: Current Inpatient Medications Medications (Trade) Dose Ordered Sig/Alek Route Start Time Stop Time Status Last Admin Dose Admin Prochlorperazine Edisylate 5 mg/ Syringe 5 ml @ 5 mls/min Q6H PRN IV 01/29/17 13:00 02/28/17 12:59 Levothyroxine Sodium (Synthroid Tab) 100 mcg DAILYBB PO 01/30/17 06:00 03/01/17 05:59 02/06/17 06:08 100 MCG Lorazepam (Ativan Tab) 0.5 mg BID PRN PO 01/29/17 13:15 02/28/17 13:14 02/01/17 04:12 0.5 MG Sertraline HCl (Zoloft Tab) 200 mg HS PO 01/29/17 21:00 02/28/17 20:59 02/05/17 20:52 200 MG Tramadol HCl (Ultram Tab) 50 mg Q6H PRN PO 01/29/17 13:15 02/28/17 13:14 01/31/17 12:30 50 MG Gabapentin (Neurontin Cap) 200 mg TID PO 01/30/17 09:00 02/28/17 13:59 02/06/17 14:04 200 MG Chlorhexidine Gluconate (Peridex Oral Soln) 15 ml DAILY MT 02/02/17 09:00 03/04/17 08:59 02/06/17 09:10 15 ML Miscellaneous Information (Consult Glycemic Management Pharmacy) 1 ea UD PRN N/A 02/02/17 13:44 03/04/17 13:43 Glucose (Glucose 40% Gel) UD PRN PO 02/02/17 15:15 03/04/17 15:14 Glucose (Glucose Chew Tab) 1 tabs UD PRN PO 02/02/17 15:15 03/04/17 15:14 Dextrose (Dextrose 50% 50ML Syringe) 50 ml UD PRN IV 02/02/17 15:15 03/04/17 15:14 02/03/17 09:09 50 ML Glucagon (Glucagon Inj) 1 mg UD PRN SQ 02/02/17 15:15 03/04/17 15:14 Acetaminophen (Tylenol Soln) 650 mg Q4H PRN PO 02/02/17 19:00 03/04/17 18:59 02/06/17 08:03 650 MG Ceftriaxone Sodium 2000 mg/ Dextrose 70 ml @ 140 mls/hr DAILY@1400 IV 02/03/17 14:00 02/17/17 13:59 02/06/17 14:04 140 MLS/HR Insulin Glargine (Lantus Solostar Pen) BID SC 02/04/17 21:00 03/06/17 20:59 02/06/17 09:14 10 UNITS Methylcellulose (Citrucel Powder) 1 gm BID PO 02/04/17 21:00 03/06/17 20:59 02/06/17 09:11 1 GM Enoxaparin Sodium (Lovenox Inj) 129 mg DAILY@0900 SQ 02/06/17 09:30 03/08/17 09:29 02/06/17 09:34 129 MG Insulin Aspart (novoLOG ASPART) SLIDING SCALE ACHS SC 02/06/17 16:00 03/08/17 15:59 Insulin Aspart (novoLOG ASPART) SLIDING SCALE TODAY@0000,0400 SC 02/07/17 00:00 02/07/17 04:01 Pantoprazole Sodium (Protonix Tab) 40 mg QAM PO 02/07/17 09:00 03/09/17 08:59 Hydrocortisone Sodium Succinate 50 mg/Syringe 1 ml @ 4 mls/min BID IV 02/06/17 21:00 03/08/17 20:59 Vital Signs: Date Time Temp Pulse Resp B/P (MAP) Pulse Ox O2 Delivery O2 Flow Rate FiO2 02/06/17 12:00 60 15 139/63 (88) 93 Nasal Cannula 6.0 02/06/17 12:00 93 Nasal Cannula 6.0 02/06/17 10:00 61 16 113/64 (80) 91 Oxymask 7.0 02/06/17 08:00 93 Oxymask 11.0 02/06/17 08:00 36.6 57 17 129/64 (85) 93 Oxymask 9.0 02/06/17 06:01 64 14 119/64 (69) 92 02/06/17 04:01 56 19 110/60 (72) 94 02/06/17 04:00 94 Oxymask 11.0 02/06/17 04:00 36.6 02/06/17 02:01 65 18 129/74 (86) 95 02/06/17 00:01 36.8 02/06/17 00:01 60 15 124/75 (86) 93 02/05/17 23:59 94 Oxymask 15.0 02/05/17 22:01 70 24 122/67 (92) 90 02/05/17 20:01 61 23 130/70 (91) 93 02/05/17 20:00 91 Mask 50 02/05/17 20:00 36.5 02/05/17 19:01 81 15 137/72 (85) 92 02/05/17 18:00 65 22 136/78 (97) 91 Mask 50 02/05/17 17:00 70 15 135/82 (99) 91 Mask 50 02/05/17 16:00 91 Mask 50 02/05/17 16:00 36.8 69 15 127/75 (92) 91 Mask 50 02/05/17 15:00 62 24 133/76 (95) 93 Mask 50 Laboratory Results: Last 24 Hours Test 02/05/17 15:43 02/05/17 19:29 02/05/17 19:50 02/05/17 23:51 Bedside Glucose 177 mg/dl 152 mg/dl 148 mg/dl Activated Partial Thromboplast Time 80.1 SECONDS Partial Thromboplastin Ratio 3.1 Test 02/06/17 02:14 02/06/17 02:15 02/06/17 03:39 02/06/17 08:44 Activated Partial Thromboplast Time 44.8 SECONDS 67.3 SECONDS Partial Thromboplastin Ratio 1.7 2.6 White Blood Count 14.13 K/uL Red Blood Count 2.96 M/uL Hemoglobin 8.3 g/dL Hematocrit 26.2 % Mean Corpuscular Volume 88.5 fL Mean Corpuscular Hemoglobin 28.0 pg Mean Corpuscular Hemoglobin Concent 31.7 g/dl Platelet Count 132 K/uL Mean Platelet Volume 11.6 fL Neutrophils (%) (Auto) 84.8 % Lymphocytes (%) (Auto) 6.4 % Monocytes (%) (Auto) 4.2 % Eosinophils (%) (Auto) 0.0 % Basophils (%) (Auto) 0.1 % Neutrophils # (Auto) 11.98 K/uL Lymphocytes # (Auto) 0.91 K/uL Monocytes # (Auto) 0.60 K/uL Eosinophils # (Auto) 0.00 K/uL Basophils # (Auto) 0.01 K/uL RDW Standard Deviation 59.2 fL RDW Coefficient of Variation 21.4 % Immature Granulocyte % (Auto) 4.5 % Immature Granulocyte # (Auto) 0.63 K/uL Toxic Granulation OCCASIONAL Anisocytosis PRESENT Sodium Level 141 mmol/L Potassium Level 3.6 mmol/L Chloride Level 103 mmol/L Carbon Dioxide Level 34 mmol/L Anion Gap 4.0 mmol/L Blood Urea Nitrogen 53 mg/dl Creatinine 1.14 mg/dl Est Creatinine Clear Calc Drug Dose 54.9 ml/min Estimated GFR () 61.0 Estimated GFR (Non- 52.6 BUN/Creatinine Ratio 46.3 Random Glucose 148 mg/dl Calcium Level 7.9 mg/dl Phosphorus Level 2.6 mg/dl Magnesium Level 1.9 mg/dl Bedside Glucose 159 mg/dl Total Bilirubin 0.2 mg/dl Direct Bilirubin 0.2 mg/dl Aspartate Amino Transf (AST/SGOT) 25 U/L Alanine Aminotransferase (ALT/SGPT) 17 U/L Alkaline Phosphatase 94 U/L Total Protein 4.6 gm/dl Albumin 1.6 gm/dl Test 02/06/17 12:03 Bedside Glucose 98 mg/dl
--- NOTE | 2017-02-06 18:58 | Hematology/Oncology Prog Note ---
Hematology/Onc Progress Note Date of Service Feb 06, 2017. Subjective I saw her bedside, 2 over daughters and was also at bedside, I reviewed her medical records, she was extubated on 02/05/2017, receiving nasal cannula supplemental at 6 L/min, hemodynamically has remained stable, no fever, repeat blood culture negative, stool for C difficile negative. Earlier she received 2 units of PRBC on 01/30/2017. She says that she is feeling quite weak and tired, diet has been advanced slightly to pureed diet, appears to be somewhat more alert, has some sore throat , no nausea or vomiting, Reviewed blood workup done today, WBC 08509, H&H of 8.3/26.2, Platelet count of 132,000. -kidney function test has improved, latest BUN/Creat: 53/1.1 (02/06/2017). I spoke with the patient 's family member at bedside, I reviewed with them regarding her oral clinical condition, will continue with her current medical management. Will decide about further management of uterine cancer as an outpatient in the next few weeks. Vital Signs Vital Signs Past 12 Hours Date Time Temp Pulse Resp B/P (MAP) Pulse Ox O2 Delivery O2 Flow Rate FiO2 02/06/17 18:00 59 14 116/97 (103) 98 Nasal Cannula 6.0 02/06/17 16:00 67 18 133/70 (91) 94 Nasal Cannula 6.0 02/06/17 16:00 93 Nasal Cannula 6.0 02/06/17 14:00 36.5 60 19 123/62 (82) 95 Oxymask 6.0 02/06/17 12:00 60 15 139/63 (88) 93 Nasal Cannula 6.0 02/06/17 12:00 93 Nasal Cannula 6.0 02/06/17 10:00 61 16 113/64 (80) 91 Oxymask 7.0 02/06/17 08:00 93 Oxymask 11.0 02/06/17 08:00 36.6 57 17 129/64 (85) 93 Oxymask 9.0
--- NOTE | 2017-02-06 20:02 | Progress Note ---
Medicine Progress Note Date & Time of Visit: Feb 06, 2017 at 15:44. Subjective Pt was seen and examined Lying in bed with no distress She is more awake today Her voice is much better Breathing improved Denies any chest pain, palpitation and fever Objective Last 8 Hrs Date Time Temp Pulse Resp B/P (MAP) Pulse Ox O2 Delivery O2 Flow Rate FiO2 02/06/17 18:00 59 14 116/97 (103) 98 Nasal Cannula 6.0 02/06/17 16:00 67 18 133/70 (91) 94 Nasal Cannula 6.0 02/06/17 16:00 93 Nasal Cannula 6.0 02/06/17 14:00 36.5 60 19 123/62 (82) 95 Oxymask 6.0 02/06/17 12:00 60 15 139/63 (88) 93 Nasal Cannula 6.0 02/06/17 12:00 93 Nasal Cannula 6.0 Physical Exam: General-no acute distress Head- atraumatic Eyes- PERRL ENT- tongue midline, trachea midline Neck- no JVD Lungs- Coarse BS Heart- regular rhythm Abdomen- normal bowel sounds Neuro- Alert, awake and oriented, able to follow commands, able to squeeze my fingers Skin- warm & dry Laboratory Results: Last 24 Hours Test 02/05/17 19:50 02/05/17 23:51 02/06/17 02:14 02/06/17 02:15 Activated Partial Thromboplast Time 80.1 SECONDS 44.8 SECONDS Partial Thromboplastin Ratio 3.1 1.7 Bedside Glucose 148 mg/dl White Blood Count 14.13 K/uL Red Blood Count 2.96 M/uL Hemoglobin 8.3 g/dL Hematocrit 26.2 % Mean Corpuscular Volume 88.5 fL Mean Corpuscular Hemoglobin 28.0 pg Mean Corpuscular Hemoglobin Concent 31.7 g/dl Platelet Count 132 K/uL Mean Platelet Volume 11.6 fL Neutrophils (%) (Auto) 84.8 % Lymphocytes (%) (Auto) 6.4 % Monocytes (%) (Auto) 4.2 % Eosinophils (%) (Auto) 0.0 % Basophils (%) (Auto) 0.1 % Neutrophils # (Auto) 11.98 K/uL Lymphocytes # (Auto) 0.91 K/uL Monocytes # (Auto) 0.60 K/uL Eosinophils # (Auto) 0.00 K/uL Basophils # (Auto) 0.01 K/uL RDW Standard Deviation 59.2 fL RDW Coefficient of Variation 21.4 % Immature Granulocyte % (Auto) 4.5 % Immature Granulocyte # (Auto) 0.63 K/uL Toxic Granulation OCCASIONAL Anisocytosis PRESENT Sodium Level 141 mmol/L Potassium Level 3.6 mmol/L Chloride Level 103 mmol/L Carbon Dioxide Level 34 mmol/L Anion Gap 4.0 mmol/L Blood Urea Nitrogen 53 mg/dl Creatinine 1.14 mg/dl Est Creatinine Clear Calc Drug Dose 54.9 ml/min Estimated GFR () 61.0 Estimated GFR (Non- 52.6 BUN/Creatinine Ratio 46.3 Random Glucose 148 mg/dl Calcium Level 7.9 mg/dl Phosphorus Level 2.6 mg/dl Magnesium Level 1.9 mg/dl Test 02/06/17 03:39 02/06/17 07:45 02/06/17 08:44 02/06/17 12:03 Bedside Glucose 159 mg/dl 145 mg/dl 98 mg/dl Activated Partial Thromboplast Time 67.3 SECONDS Partial Thromboplastin Ratio 2.6 Total Bilirubin 0.2 mg/dl Direct Bilirubin 0.2 mg/dl Aspartate Amino Transf (AST/SGOT) 25 U/L Alanine Aminotransferase (ALT/SGPT) 17 U/L Alkaline Phosphatase 94 U/L Total Protein 4.6 gm/dl Albumin 1.6 gm/dl Test 02/06/17 16:18 Bedside Glucose 136 mg/dl Assessment & Plan ACUTE RESPIRATORY FAILURE Possible related to ARDS, pulmonary edema Intubated on vent support Chest x-ray with unchanged bilateral patchy pulmonary opacities Unable to get CTA chest due to VAUGHN Received IV lasix again today CXR today showed improvement in the pulmonary edema Monitor I/O Continue IV Rocephin Repeat blood cx no growth 02/06 S/P day 2 extubated On 6L Nasal canula More alert and awake today Clinically improved SEPSIS Pyelonephritis/bacteremia Blood cultures and Urine culture grew Escherichia coli Elevated lactic acid on admission, now normal Off pressor pressor Repeat cx no growth Continue Rocephin IV ID on board Endometrial carcinoma Continue follow with Oncology Dr. García Oncology on board ANEMIA Hemoglobin today 8.3 No clear source of bleeding Pancytopenia secondary to chemotherapy for endometrial cancer Monitor CBC and transfused if needed FACTOR V LEYDEN DEFICIENCY No prior history of thrombotic disease Has not been on chronic outpatient anticoagulation Heparin drip was d/c Lower extremity duplex negative for DVT Now on therapeutic Lovenox VAUGHN Renal ultrasound showed no hydronephrosis Creatinine continue improving 1.1 today Continue monitor BMP closely Resolved ELECTROLYTES IMBALANCE K 3.6 today Continue monitor BMP DVT PX D/C IV heparin drip On Lovenox CODE STATUS DNR DISPOSITION Continue monitor in the ICU Consultants: Software Engineer Sales Hem/Oncology Infectious dx Current Inpatient Medications: Current Inpatient Medications Medications (Trade) Dose Ordered Sig/Alek Route Start Time Stop Time Status Last Admin Dose Admin Prochlorperazine Edisylate 5 mg/ Syringe 5 ml @ 5 mls/min Q6H PRN IV 01/29/17 13:00 02/28/17 12:59 Levothyroxine Sodium (Synthroid Tab) 100 mcg DAILYBB PO 01/30/17 06:00 03/01/17 05:59 02/06/17 06:08 100 MCG Lorazepam (Ativan Tab) 0.5 mg BID PRN PO 01/29/17 13:15 02/28/17 13:14 02/01/17 04:12 0.5 MG Sertraline HCl (Zoloft Tab) 200 mg HS PO 01/29/17 21:00 02/28/17 20:59 02/05/17 20:52 200 MG Tramadol HCl (Ultram Tab) 50 mg Q6H PRN PO 01/29/17 13:15 02/28/17 13:14 01/31/17 12:30 50 MG Gabapentin (Neurontin Cap) 200 mg TID PO 01/30/17 09:00 02/28/17 13:59 02/06/17 14:04 200 MG Chlorhexidine Gluconate (Peridex Oral Soln) 15 ml DAILY MT 02/02/17 09:00 03/04/17 08:59 02/06/17 09:10 15 ML Miscellaneous Information (Consult Glycemic Management Pharmacy) 1 ea UD PRN N/A 02/02/17 13:44 03/04/17 13:43 Glucose (Glucose 40% Gel) UD PRN PO 02/02/17 15:15 03/04/17 15:14 Glucose (Glucose Chew Tab) 1 tabs UD PRN PO 02/02/17 15:15 03/04/17 15:14 Dextrose (Dextrose 50% 50ML Syringe) 50 ml UD PRN IV 02/02/17 15:15 03/04/17 15:14 02/03/17 09:09 50 ML Glucagon (Glucagon Inj) 1 mg UD PRN SQ 02/02/17 15:15 03/04/17 15:14 Acetaminophen (Tylenol Soln) 650 mg Q4H PRN PO 02/02/17 19:00 03/04/17 18:59 02/06/17 08:03 650 MG Ceftriaxone Sodium 2000 mg/ Dextrose 70 ml @ 140 mls/hr DAILY@1400 IV 02/03/17 14:00 02/17/17 13:59 02/06/17 14:04 140 MLS/HR Insulin Glargine (Lantus Solostar Pen) BID SC 02/04/17 21:00 03/06/17 20:59 02/06/17 09:14 10 UNITS Methylcellulose (Citrucel Powder) 1 gm BID PO 02/04/17 21:00 03/06/17 20:59 02/06/17 09:11 1 GM Enoxaparin Sodium (Lovenox Inj) 129 mg DAILY@0900 SQ 02/06/17 09:30 03/08/17 09:29 02/06/17 09:34 129 MG Insulin Aspart (novoLOG ASPART) SLIDING SCALE ACHS SC 02/06/17 16:00 03/08/17 15:59 02/06/17 17:14 3 UNITS Insulin Aspart (novoLOG ASPART) SLIDING SCALE TODAY@0000,0400 SC 02/07/17 00:00 02/07/17 04:01 Pantoprazole Sodium (Protonix Tab) 40 mg QAM PO 02/07/17 09:00 03/09/17 08:59 Hydrocortisone Sodium Succinate 50 mg/Syringe 1 ml @ 4 mls/min BID IV 02/06/17 21:00 03/08/17 20:59
[2017-02-06] MEDS: SERTRALINE HCL 100 MG TAB PO SCH (21:12)
[2017-02-06] MEDS: HYDROCORTISONE IV 50 MG in SYRINGE 0 ML IV SCH (21:12)
[2017-02-06] MEDS ORDERED: PANTOprazole SOD 40 MG TAB PO ONE (23:04)
[2017-02-07] VITALS (12 sets, daily range): BP systolic 95–150; BP diastolic 69–80; PULSE 58–84; TEMP 36.4–37; O2SAT 90–98
[2017-02-07] MEDS: INSULIN ASPART 100 UNITS/ML 3 ML PEN SC SCH ×6 (04:00→21:00)
[2017-02-07] MEDS: LEVOTHYROXINE 100 MCG TAB PO SCH (05:52)
[2017-02-07 06:08] LABS: BASO % 0.1 %; BASO ABS # 0.01 K/uL (0-0.2); EOS % 0.1 %; EOS ABS # 0.01 K/uL (0-0.5); HEMATOCRIT 29.3 % (37-47); HEMOGLOBIN 9.2 g/dL (12.0-16.0); IG# 0.34 K/uL (0.00-0.02); LYMPH % 9.1 %; LYMPH ABS # 1.14 K/uL (1.2-3.4); MEAN CELL VOLUME 91.6 fL (80-100); MEAN CORPUSCULAR HEMOGLOBIN 28.8 pg (25-34); MEAN CORPUSCULAR HGB CONC 31.4 g/dl (32-36); MEAN PLATELET VOLUME 11.7 fL (7.4-10.4); MONO % 6.6 %; MONO ABS # 0.82 K/uL (0.11-0.59); NEUT % 81.4 %; NEUT ABS # 10.14 K/uL (1.4-6.5); NUCLEATED RED BLOOD CELL ABS 0.02 K/uL (0-0); PLATELET COUNT 157 K/uL (130-400); RED CELL DISTRIBUTION WIDTH CV 21.7 % (11.5-14.5); RED CELL DISTRIBUTION WIDTH SD 65.5 fL (36.4-46.3); WHITE BLOOD COUNT 12.46 K/uL (4.8-10.8)
[2017-02-07 06:24] LABS: PTT PATIENT 26.1 SECONDS (21.0-31.0)
[2017-02-07 06:55] LABS: CREATININE 0.93 mg/dl (0.60-1.20)
[2017-02-07] MEDS: METHYLCELLULOSE POWDER 454 GM JAR PO SCH ×2 (08:30→21:00)
[2017-02-07] MEDS: CHLORHEXIDINE GLUCONATE 0.12% 480 ML MT SCH (08:31)
[2017-02-07] MEDS: HYDROCORTISONE IV 50 MG in SYRINGE 0 ML IV SCH (08:31)
[2017-02-07] MEDS: PANTOprazole SOD 40 MG TAB PO SCH (08:32)
[2017-02-07] MEDS: GABAPENTIN 100 MG CAP PO SCH ×3 (08:32→21:06)
[2017-02-07] MEDS: ENOXAPARIN 150 MG/1ML SYR SQ SCH (08:33)
[2017-02-07] MEDS: INSULIN GLARGINE SOLOSTAR 100 UNITS/ML 3 ML PEN SC SCH ×2 (08:33→21:00)
[2017-02-07] MEDS ORDERED: POTASSIUM CHLORIDE 20 MEQ TABCR PO ONE (08:45)
--- NOTE | 2017-02-07 09:44 | Critical Care Progress Note ---
Critical Care Progress Note Date of Service Feb 07, 2017. ICU Day ICU Day Number: [address] Lugo Subjective Complaints of nose irritation from nasal cannula and gastric reflux Objective GENERAL : Extubated yesterday. More alert today. No acute distress EYES: No icterus, gaze conjugate. PERRL. NOSE: No evidence of epistaxis. Oxy mask in place MOUTH: No lesions or candidiasis. NECK: No JVD or stridor appreciated. LUNGS: Fine crackles at the bases. No bronchospasm. Diminished breath sounds throughout HEART: Regular, rate controlled in the 80s ABDOMEN: Soft, NT, ND, BS Present. There was tenderness to deep palpation but no rebound tenderness on examination. There was a soft mobile area approximate 3 cm in size there was palpable through the pannus EXTREMITIES: Positive bilateral LE edema, pedal pulses intact NEURO: Awake and alert. Follows commands. No other acute focal deficits Current SOFA Score SOFA Score Response (Comments) Value PaO2/FiO2 (mmHg) < 200 3 SaO2 / FIO2 221 - 301 1 Platelets (x10) > 150 0 Bilirubin (mg/dL) < 1.2 0 Janette Coma Score 15 0 Level of Hypotension No Hypotension 0 Creatinine (mg/dL) < 1.2 0 Total 4 Assessment & Plan RESPIRATORY FAILURE Secondary to cardiogenic shock, ARDs, pulmonary edema Extubated 02/05 Ceftriaxone for pyelonephritis - Day #9 Also received 5 days of Cefepime No sputum sample collected Blood cultures with Escherichia coli. Urine culture with Escherichia coli repeat blood cultures demonstrate no growth Following simple commands Family at bedside and indicating that patient would not want to be re-intubated if persistent respiratory failure Humidified oxygen for nasal irritation ID Pyelonephritis with pancytopenia Ceftriaxone for pyelonephritis - Day #9 Also received 5 days of Cefepime and 2 days of Ciprofloxacin and 1 day of Vancomycin Escherichia coli bacteremia likely secondary to pyelonephritis Patient was initially pancytopenic approximately 8 days ago Has been afebrile since 02/02 @ 1600 (5 days ago) Central venous catheter unlikely to have been source, was removed 02/06 Will continue antibiotics for 7 days of effective therapy since last fever * Stop date 1225 HEME Hemoglobin up to 9.2 2 units PRBCs transfused on admission 01/30/2017 No clear source of bleeding Plt count up to 157,000 Pancytopenia secondary to chemotherapy for endometrial cancer Improved with Neupogen 01/30/17 FACTOR V LEYDEN DEFICIENCY No prior history of thrombotic disease Has not been on chronic outpatient anticoagulation Heparin drip held and patient started on enoxaparin 1 mg/kg daily Lower extremity duplex negative for DVT Unable to scan for pulmonary embolus secondary to acute kidney failure * Would likely require lifelong anticoagulation RENAL Pyelonephritis treated with IV Ceftriaxone, Cefepime. and Ciprofloxacin Renal ultrasound with no hydronephrosis IV antibiotics Creatinine 0.93 today - continues with slow improvement daily Hydrocortisone 100 mg started on 1220 BID - Decreased to 50mg IV BID 02/06 * Will decrease today last dose tomorrow ELECTROLYTES Continue to replete Potassium No arrhythmias on telemetry Currently sinus rhythm with a rate in the 80s * Adequate diuresis recently will hold off additional diuresis at this time IV ACCESS Right triple-lumen IJ catheter removed 02/05/2017 Now PIVs NUTRITION Tube feeds held when extubated Now on pureed diet and seems to be tolerating Appreciate nutrition consult and input DVT PROPHYLAXIS Lower extremity venous Doppler with no evidence of acute DVT Heparin gtt stopped and patient now on Enoxaparin 1 mg/kg daily - started on SCDs Patient stable for transfer out of ICU today Consults & Procedures Consultants: Oncology - Dr. García Procedures: Endotracheal intubation 02/01/2017 RIJ 3L CVC 02/01/2017 Removal of RIJ 3L CVC 02/04/2017 Extubated 02/05/17 Data Medications: Current Inpatient Medications Medications (Trade) Dose Ordered Sig/Alek Route Start Time Stop Time Status Last Admin Dose Admin Prochlorperazine Edisylate 5 mg/ Syringe 5 ml @ 5 mls/min Q6H PRN IV 01/29/17 13:00 02/28/17 12:59 Levothyroxine Sodium (Synthroid Tab) 100 mcg DAILYBB PO 01/30/17 06:00 03/01/17 05:59 02/07/17 05:52 100 MCG Lorazepam (Ativan Tab) 0.5 mg BID PRN PO 01/29/17 13:15 02/28/17 13:14 02/01/17 04:12 0.5 MG Sertraline HCl (Zoloft Tab) 200 mg HS PO 01/29/17 21:00 02/28/17 20:59 02/06/17 21:12 200 MG Tramadol HCl (Ultram Tab) 50 mg Q6H PRN PO 01/29/17 13:15 02/28/17 13:14 01/31/17 12:30 50 MG Gabapentin (Neurontin Cap) 200 mg TID PO 01/30/17 09:00 02/28/17 13:59 02/07/17 08:32 200 MG Chlorhexidine Gluconate (Peridex Oral Soln) 15 ml DAILY MT 02/02/17 09:00 03/04/17 08:59 02/07/17 08:31 15 ML Miscellaneous Information (Consult Glycemic Management Pharmacy) 1 ea UD PRN N/A 02/02/17 13:44 03/04/17 13:43 Glucose (Glucose 40% Gel) UD PRN PO 02/02/17 15:15 03/04/17 15:14 Glucose (Glucose Chew Tab) 1 tabs UD PRN PO 02/02/17 15:15 03/04/17 15:14 Dextrose (Dextrose 50% 50ML Syringe) 50 ml UD PRN IV 02/02/17 15:15 03/04/17 15:14 02/03/17 09:09 50 ML Glucagon (Glucagon Inj) 1 mg UD PRN SQ 02/02/17 15:15 03/04/17 15:14 Acetaminophen (Tylenol Soln) 650 mg Q4H PRN PO 02/02/17 19:00 03/04/17 18:59 02/06/17 08:03 650 MG Ceftriaxone Sodium 2000 mg/ Dextrose 70 ml @ 140 mls/hr DAILY@1400 IV 02/03/17 14:00 02/17/17 13:59 02/06/17 14:04 140 MLS/HR Insulin Glargine (Lantus Solostar Pen) BID SC 02/04/17 21:00 03/06/17 20:59 02/06/17 09:14 10 UNITS Methylcellulose (Citrucel Powder) 1 gm BID PO 02/04/17 21:00 03/06/17 20:59 02/06/17 09:11 1 GM Enoxaparin Sodium (Lovenox Inj) 129 mg DAILY@0900 SQ 02/06/17 09:30 03/08/17 09:29 02/07/17 08:33 129 MG Insulin Aspart (novoLOG ASPART) SLIDING SCALE ACHS SC 02/06/17 16:00 03/08/17 15:59 02/06/17 17:14 3 UNITS Pantoprazole Sodium (Protonix Tab) 40 mg QAM PO 02/07/17 09:00 03/09/17 08:59 02/07/17 08:32 40 MG Hydrocortisone Sodium Succinate 50 mg/Syringe 1 ml @ 4 mls/min BID IV 02/06/17 21:00 03/08/17 20:59 02/07/17 08:31 4 MLS/MIN Vital Signs: Date Time Temp Pulse Resp B/P (MAP) Pulse Ox O2 Delivery O2 Flow Rate FiO2 02/07/17 05:02 64 13 95 Nasal Cannula 4.0 02/07/17 04:01 36.4 62 13 148/73 (98) 93 Nasal Cannula 4.0 02/07/17 04:00 Nasal Cannula 4.0 02/07/17 03:02 58 13 95 Nasal Cannula 4.0 02/07/17 02:02 59 12 142/69 (93) 95 Nasal Cannula 4.0 02/07/17 01:02 61 13 94 Nasal Cannula 4.0 02/07/17 00:02 36.7 59 15 95/76 (82) 93 Nasal Cannula 4.0 02/06/17 23:59 Nasal Cannula 4.0 02/06/17 23:02 61 17 92 Nasal Cannula 4.0 02/06/17 22:14 61 15 156/79 (104) 91 02/06/17 22:02 65 17 156/138 (144) 89 02/06/17 20:02 37.0 55 16 141/92 (108) 94 Nasal Cannula 4.0 02/06/17 20:00 Nasal Cannula 4.0 02/06/17 18:00 59 14 116/97 (103) 98 Nasal Cannula 6.0 02/06/17 16:00 67 18 133/70 (91) 94 Nasal Cannula 6.0 02/06/17 16:00 93 Nasal Cannula 6.0 02/06/17 14:00 36.5 60 19 123/62 (82) 95 Oxymask 6.0 02/06/17 12:00 60 15 139/63 (88) 93 Nasal Cannula 6.0 02/06/17 12:00 93 Nasal Cannula 6.0 02/06/17 10:00 61 16 113/64 (80) 91 Oxymask 7.0 Laboratory Results: Last 24 Hours Test 02/06/17 12:03 02/06/17 16:18 02/06/17 20:37 02/07/17 00:07 Bedside Glucose 98 mg/dl 136 mg/dl 122 mg/dl 125 mg/dl Test 02/07/17 04:23 02/07/17 05:52 Bedside Glucose 124 mg/dl White Blood Count 12.46 K/uL Red Blood Count 3.20 M/uL Hemoglobin 9.2 g/dL Hematocrit 29.3 % Mean Corpuscular Volume 91.6 fL Mean Corpuscular Hemoglobin 28.8 pg Mean Corpuscular Hemoglobin Concent 31.4 g/dl Platelet Count 157 K/uL Mean Platelet Volume 11.7 fL Neutrophils (%) (Auto) 81.4 % Lymphocytes (%) (Auto) 9.1 % Monocytes (%) (Auto) 6.6 % Eosinophils (%) (Auto) 0.1 % Basophils (%) (Auto) 0.1 % Neutrophils # (Auto) 10.14 K/uL Lymphocytes # (Auto) 1.14 K/uL Monocytes # (Auto) 0.82 K/uL Eosinophils # (Auto) 0.01 K/uL Basophils # (Auto) 0.01 K/uL RDW Standard Deviation 65.5 fL RDW Coefficient of Variation 21.7 % Immature Granulocyte % (Auto) 2.7 % Immature Granulocyte # (Auto) 0.34 K/uL Nucleated RBC Absolute Count (auto) 0.02 K/uL Nucleated Red Blood Cells % 0.2 % Anisocytosis PRESENT Spherocytes 1+ Activated Partial Thromboplast Time 26.1 SECONDS Partial Thromboplastin Ratio 1.0 Sodium Level 143 mmol/L Potassium Level 3.0 mmol/L Chloride Level 103 mmol/L Carbon Dioxide Level 34 mmol/L Anion Gap 6.0 mmol/L Blood Urea Nitrogen 43 mg/dl Creatinine 0.93 mg/dl Est Creatinine Clear Calc Drug Dose 65.9 ml/min Estimated GFR () 78.0 Estimated GFR (Non- 67.3 BUN/Creatinine Ratio 46.1 Random Glucose 109 mg/dl Calcium Level 8.0 mg/dl Phosphorus Level 3.0 mg/dl Magnesium Level 2.3 mg/dl
[2017-02-07] MEDS ORDERED: FAMOTIDINE 20 MG TAB PO ONE (12:00)
--- NOTE | 2017-02-07 12:38 | Pharmacy Progress Note ---
Glycemic Control Progress Note Date of Service Feb 07, 2017. Scope Glycemic Pharmacist consulted for glycemic control to write orders per [facility] inpatient glycemic control protocol. Objective Accuchecks BSG (last 24hrs): Test 02/06/17 16:18 02/06/17 20:37 02/07/17 00:07 02/07/17 04:23 Bedside Glucose 136 mg/dl (70-90) 122 mg/dl (70-90) 125 mg/dl (70-90) 124 mg/dl (70-90) Test 02/07/17 05:52 02/07/17 11:24 Random Glucose 109 mg/dl (70-99) Bedside Glucose 129 mg/dl (70-90) HbA1c: Test 02/03/17 04:03 Hemoglobin A1c 6.6 % (4.5-5.6) H Recent Pertinent Medications The patient is currently receiving: * Basal insulin: Lantus SQ BID per the following scale: 0 unit for BSG less than 140; 10 units for 140-180; 15 units for above 180 * Correctional Insulin: Novolog Correction per scale ACHS Goal Range: Low 140 mg/dL - High 180 mg/dL Correction Factor: 15 mg/dL/unit * Prandial insulin: Per carb ratio of 1 unit per 6 grams CHO consumed Outpatient Anti-Diabetic Meds No home meds for DM Assessment & Plan ASSESSMENT: 02/07/17 * Glycemic control acceptable over the last 24 hours; BSGs have ranged 98-125; only 13 units of SQ insulin administered * Fasting BSG 109-124 this AM with 10 units on Lantus on board * PO intake poor per nursing documentation. No carbs eaten today per EMR. * Karlos has been dc'd at this time; would expect improving insulin sensitivity as a result * Will titrate the basal and bolus insulin doses downward at this time. PLAN FOR INPATIENT GLYCEMIC CONTROL: * Decreasing Lantus BID to the following: * BSG less than 140 give 0 units * BSG 140-180 give 7 units * BSG above 180 give 15 units * Changing correction factor to 25 mg/dl/unit * Changing carb ratio to 1 unit per 15 grams CHO consumed * Changing goal range to Low 120 mg/dL - High 160 mg/dL RECOMMENDATIONS FOR DISCHARGE: * * Please note that the plan above was derived based on current level of insulin resistance and hospital stress. These recommendations are appropriate for inpatient admission only. Plan of care upon discharge will need to be reassessed to avoid potential outpatient hypo/hyperglycemia. Thank you.
[2017-02-07] MEDS: CEFTRIAXONE SOD INJ 2000 MG in DEXTROSE 5% 50ML IV SCH (13:40)
--- NOTE | 2017-02-07 18:04 | Progress Note ---
Medicine Progress Note Date & Time of Visit: Feb 07, 2017 at 13:56. Subjective Pt was seen and examined Lying in bed with no distress eating lunch Pt said that she feels slightly better Denies any chest pain, palpitation, dizziness and fever Objective Last 8 Hrs Date Time Temp Pulse Resp B/P (MAP) Pulse Ox O2 Delivery O2 Flow Rate FiO2 02/07/17 16:00 Nasal Cannula 4.0 02/07/17 15:49 36.8 59 20 150/78 (102) 98 Nasal Cannula 3.0 02/07/17 12:02 84 16 95 Nasal Cannula 4.0 02/07/17 12:00 Nasal Cannula 4.0 02/07/17 10:04 37.0 77 16 144/80 (101) 92 Nasal Cannula 4.0 Physical Exam: General-no acute distress Head- atraumatic Eyes- PERRL ENT- tongue midline, trachea midline Neck- no JVD Lungs- Coarse BS, Decrease BS Heart- regular rhythm Abdomen- normal bowel sounds Neuro- Alert, awake and oriented, follow commands, speech fluent Skin- warm & dry Laboratory Results: Last 24 Hours Test 02/06/17 20:37 02/07/17 00:07 02/07/17 04:23 02/07/17 05:52 Bedside Glucose 122 mg/dl 125 mg/dl 124 mg/dl White Blood Count 12.46 K/uL Red Blood Count 3.20 M/uL Hemoglobin 9.2 g/dL Hematocrit 29.3 % Mean Corpuscular Volume 91.6 fL Mean Corpuscular Hemoglobin 28.8 pg Mean Corpuscular Hemoglobin Concent 31.4 g/dl Platelet Count 157 K/uL Mean Platelet Volume 11.7 fL Neutrophils (%) (Auto) 81.4 % Lymphocytes (%) (Auto) 9.1 % Monocytes (%) (Auto) 6.6 % Eosinophils (%) (Auto) 0.1 % Basophils (%) (Auto) 0.1 % Neutrophils # (Auto) 10.14 K/uL Lymphocytes # (Auto) 1.14 K/uL Monocytes # (Auto) 0.82 K/uL Eosinophils # (Auto) 0.01 K/uL Basophils # (Auto) 0.01 K/uL RDW Standard Deviation 65.5 fL RDW Coefficient of Variation 21.7 % Immature Granulocyte % (Auto) 2.7 % Immature Granulocyte # (Auto) 0.34 K/uL Nucleated RBC Absolute Count (auto) 0.02 K/uL Nucleated Red Blood Cells % 0.2 % Anisocytosis PRESENT Spherocytes 1+ Activated Partial Thromboplast Time 26.1 SECONDS Partial Thromboplastin Ratio 1.0 Sodium Level 143 mmol/L Potassium Level 3.0 mmol/L Chloride Level 103 mmol/L Carbon Dioxide Level 34 mmol/L Anion Gap 6.0 mmol/L Blood Urea Nitrogen 43 mg/dl Creatinine 0.93 mg/dl Est Creatinine Clear Calc Drug Dose 65.9 ml/min Estimated GFR () 78.0 Estimated GFR (Non- 67.3 BUN/Creatinine Ratio 46.1 Random Glucose 109 mg/dl Calcium Level 8.0 mg/dl Phosphorus Level 3.0 mg/dl Magnesium Level 2.3 mg/dl Test 02/07/17 11:24 02/07/17 16:17 Bedside Glucose 129 mg/dl 187 mg/dl Assessment & Plan ACUTE RESPIRATORY FAILURE Possible related to ARDS, pulmonary edema Intubated on vent support Chest x-ray with unchanged bilateral patchy pulmonary opacities Unable to get CTA chest due to VAUGHN Received IV lasix again today CXR today showed improvement in the pulmonary edema Monitor I/O Continue IV Rocephin Repeat blood cx no growth 02/07 S/P day 3 extubated On 4L Nasal canula More alert and awake today Clinically improved SEPSIS Pyelonephritis/bacteremia Blood cultures and Urine culture grew Escherichia coli Elevated lactic acid on admission, now normal Off pressor pressor Repeat cx no growth Continue Rocephin IV, will stop on 02/09 ID on board Endometrial carcinoma Continue follow with Oncology Dr. García Oncology on board ANEMIA Hemoglobin today 9.2 No clear source of bleeding Pancytopenia secondary to chemotherapy for endometrial cancer Monitor CBC and transfused if needed FACTOR V LEYDEN DEFICIENCY No prior history of thrombotic disease Has not been on chronic outpatient anticoagulation Heparin drip was d/c Lower extremity duplex negative for DVT Now on therapeutic Lovenox Unable to get CTA chest to R/O pulmonary embolus secondary to acute kidney failure VAUGHN Renal ultrasound showed no hydronephrosis Creatinine continue improving 1.1 today Continue monitor BMP closely Resolved ELECTROLYTES IMBALANCE K 3 today K replaced Continue monitor BMP DVT PX D/C IV heparin drip On Lovenox CODE STATUS DNR DISPOSITION Transfer to telemetry 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: Freight Elevator Erector Hem/Oncology Infectious dx Current Inpatient Medications: Current Inpatient Medications Medications (Trade) Dose Ordered Sig/Alek Route Start Time Stop Time Status Last Admin Dose Admin Prochlorperazine Edisylate 5 mg/ Syringe 5 ml @ 5 mls/min Q6H PRN IV 01/29/17 13:00 02/28/17 12:59 Levothyroxine Sodium (Synthroid Tab) 100 mcg DAILYBB PO 01/30/17 06:00 03/01/17 05:59 02/07/17 05:52 100 MCG Lorazepam (Ativan Tab) 0.5 mg BID PRN PO 01/29/17 13:15 02/28/17 13:14 02/01/17 04:12 0.5 MG Sertraline HCl (Zoloft Tab) 200 mg HS PO 01/29/17 21:00 02/28/17 20:59 02/06/17 21:12 200 MG Tramadol HCl (Ultram Tab) 50 mg Q6H PRN PO 01/29/17 13:15 02/28/17 13:14 01/31/17 12:30 50 MG Gabapentin (Neurontin Cap) 200 mg TID PO 01/30/17 09:00 02/28/17 13:59 02/07/17 13:40 200 MG Chlorhexidine Gluconate (Peridex Oral Soln) 15 ml DAILY MT 02/02/17 09:00 03/04/17 08:59 02/07/17 08:31 15 ML Miscellaneous Information (Consult Glycemic Management Pharmacy) 1 ea UD PRN N/A 02/02/17 13:44 03/04/17 13:43 Glucose (Glucose 40% Gel) UD PRN PO 02/02/17 15:15 03/04/17 15:14 Glucose (Glucose Chew Tab) 1 tabs UD PRN PO 02/02/17 15:15 03/04/17 15:14 Dextrose (Dextrose 50% 50ML Syringe) 50 ml UD PRN IV 02/02/17 15:15 03/04/17 15:14 02/03/17 09:09 50 ML Glucagon (Glucagon Inj) 1 mg UD PRN SQ 02/02/17 15:15 03/04/17 15:14 Acetaminophen (Tylenol Soln) 650 mg Q4H PRN PO 02/02/17 19:00 03/04/17 18:59 02/06/17 08:03 650 MG Ceftriaxone Sodium 2000 mg/ Dextrose 70 ml @ 140 mls/hr DAILY@1400 IV 02/03/17 14:00 02/09/17 16:00 02/07/17 13:40 140 MLS/HR Insulin Glargine (Lantus Solostar Pen) BID SC 02/04/17 21:00 03/06/17 20:59 02/06/17 09:14 10 UNITS Methylcellulose (Citrucel Powder) 1 gm BID PO 02/04/17 21:00 03/06/17 20:59 02/06/17 09:11 1 GM Enoxaparin Sodium (Lovenox Inj) 129 mg DAILY@0900 SQ 02/06/17 09:30 03/08/17 09:29 02/07/17 08:33 129 MG Insulin Aspart (novoLOG ASPART) SLIDING SCALE ACHS SC 02/06/17 16:00 03/08/17 15:59 02/07/17 16:54 2 UNITS Pantoprazole Sodium (Protonix Tab) 40 mg QAM PO 02/07/17 09:00 03/09/17 08:59 02/07/17 08:32 40 MG Prednisone (PredniSONE TAB) 10 mg 0900 ONCE PO 02/08/17 09:00 02/08/17 09:01
[2017-02-07] MEDS: SERTRALINE HCL 100 MG TAB PO SCH (21:06)
[2017-02-08 04:43] VITALS: BP 147/81; PULSE 67; TEMP 36.7; O2SAT 95
[2017-02-08] MEDS: PROCHLORPERAZINE INJ 5 MG in SYRINGE 4 ML IV PRN (05:51)
[2017-02-08] MEDS: LEVOTHYROXINE 100 MCG TAB PO SCH (05:56)
[2017-02-08 06:16] LABS: BASO % 0.1 %; BASO ABS # 0.01 K/uL (0-0.2); EOS % 0.1 %; EOS ABS # 0.01 K/uL (0-0.5); HEMATOCRIT 31.6 % (37-47); HEMOGLOBIN 9.3 g/dL (12.0-16.0); IG# 0.21 K/uL (0.00-0.02); LYMPH % 6.6 %; LYMPH ABS # 0.87 K/uL (1.2-3.4); MEAN CELL VOLUME 93.2 fL (80-100); MEAN CORPUSCULAR HEMOGLOBIN 27.4 pg (25-34); MEAN CORPUSCULAR HGB CONC 29.4 g/dl (32-36); MEAN PLATELET VOLUME 12.3 fL (7.4-10.4); MONO % 6.3 %; MONO ABS # 0.82 K/uL (0.11-0.59); NEUT % 85.3 %; NUCLEATED RED BLOOD CELL ABS 0.02 K/uL (0-0); PLATELET COUNT 153 K/uL (130-400); RED CELL DISTRIBUTION WIDTH SD 70.9 fL (36.4-46.3); WHITE BLOOD COUNT 13.12 K/uL (4.8-10.8)
[2017-02-08 06:26] LABS: PTT PATIENT 25.8 SECONDS (21.0-31.0)
[2017-02-08 06:51] LABS: CALCIUM 8.3 mg/dl (8.5-10.1); CREATININE 0.85 mg/dl (0.60-1.20); POTASSIUM 3.2 mmol/L (3.5-5.1)
[2017-02-08] MEDS: INSULIN ASPART 100 UNITS/ML 3 ML PEN SC SCH ×4 (07:00→20:46)
[2017-02-08 07:52] VITALS: BP 128/65; PULSE 74; TEMP 36.8; O2SAT 97
[2017-02-08] MEDS: PANTOprazole SOD 40 MG TAB PO SCH (08:17)
[2017-02-08] MEDS: GABAPENTIN 100 MG CAP PO SCH ×3 (08:17→20:48)
[2017-02-08] MEDS: METHYLCELLULOSE POWDER 454 GM JAR PO SCH ×2 (08:22→20:25)
[2017-02-08] MEDS: ENOXAPARIN 150 MG/1ML SYR SQ SCH (08:22)
[2017-02-08] MEDS: CHLORHEXIDINE GLUCONATE 0.12% 480 ML MT SCH (08:23)
[2017-02-08] MEDS: INSULIN GLARGINE SOLOSTAR 100 UNITS/ML 3 ML PEN SC SCH (08:24)
[2017-02-08] MEDS ORDERED: POTASSIUM CHLORIDE 20 MEQ TABCR PO ONE (09:30)
--- NOTE | 2017-02-08 11:59 | Pharmacy Progress Note ---
Glycemic Control Progress Note Date of Service Feb 08, 2017. Scope Glycemic Pharmacist consulted for glycemic control to write orders per [facility] inpatient glycemic control protocol. Objective Accuchecks BSG (last 24hrs): Test 02/07/17 16:17 02/07/17 20:52 02/08/17 05:41 02/08/17 06:44 Bedside Glucose 187 mg/dl (70-90) 110 mg/dl (70-90) 96 mg/dl (70-90) Random Glucose 95 mg/dl (70-99) Test 02/08/17 11:33 Bedside Glucose 189 mg/dl (70-90) HbA1c: Test 02/03/17 04:03 Hemoglobin A1c 6.6 % (4.5-5.6) H Recent Pertinent Medications The patient is currently receiving: * Basal insulin: Lantus SQ BID per the following scale: 0 unit for BSG less than 140; 7 units for 140-180; 15 units for above 180 * Correctional Insulin: Novolog Correction per scale ACHS Goal Range: Low 120 mg/dL - High 160 mg/dL Correction Factor: 25 mg/dL/unit * Prandial insulin: Per carb ratio of 1 unit per 15 grams CHO consumed Outpatient Anti-Diabetic Meds No prior dx of DM however A1c 6.6 is consistent with DM Assessment & Plan ASSESSMENT: 02/07/17 * Glycemic control acceptable over the last 24 hours; BSGs have ranged 98-125; only 13 units of SQ insulin administered * Fasting BSG 109-124 this AM with 10 units on Lantus on board * PO intake poor per nursing documentation. No carbs eaten today per EMR. * Karlos has been dc'd at this time; would expect improving insulin sensitivity as a result * Will titrate the basal and bolus insulin doses downward at this time. 02/08/17 * BSGs have ranged 96-189 over the last 24 hrs * No basal insulin has been administered since 02/06 AM and fasting BSGs have been at goal without basal - will d/c Lantus scale * Post-prandial hyperglycemia observed when CR is not used to cover carbs in meals * Last dose of Prednisone to be administered today (10mg); no further orders for steroids at this time PLAN FOR INPATIENT GLYCEMIC CONTROL: * Discontinue Lantus scale * Continue correction factor of 25 mg/dl/unit * Continue carb ratio of 1 unit per 15 grams CHO consumed * Continue goal range of Low 120 mg/dL - High 160 mg/dL * Please note that the plan above was derived based on current level of insulin resistance and hospital stress. These recommendations are appropriate for inpatient admission only. Plan of care upon discharge will need to be reassessed to avoid potential outpatient hypo/hyperglycemia. Thank you.
[2017-02-08 13:01] VITALS: BP 119/60; PULSE 83; TEMP 36.7; O2SAT 95
--- NOTE | 2017-02-08 13:56 | Progress Note ---
Medicine Progress Note Date & Time of Visit: Feb 08, 2017 at 13:51. Subjective Pt was seen and examined Lying in bed with no distress Pt said that she feels very weak She does not have any appetite Denies any chest pain, palpitation and fever Objective Last 8 Hrs Date Time Temp Pulse Resp B/P (MAP) Pulse Ox O2 Delivery O2 Flow Rate FiO2 02/08/17 13:01 36.7 83 18 119/60 (79) 95 02/08/17 12:00 Nasal Cannula 4.0 Humidified Oxygen 02/08/17 08:00 Nasal Cannula 4.0 Humidified Oxygen 02/08/17 07:52 36.8 74 18 128/65 (86) 97 Physical Exam: General-no acute distress Head- atraumatic Eyes- PERRL ENT- tongue midline, trachea midline Neck- no JVD Lungs- Coarse BS, Decrease BS Heart- regular rhythm Abdomen- normal bowel sounds Neuro- Alert, awake and oriented, follow commands Skin- warm & dry Laboratory Results: Last 24 Hours Test 02/07/17 16:17 02/07/17 19:18 02/07/17 20:52 02/08/17 05:41 Bedside Glucose 187 mg/dl 110 mg/dl Potassium Level 3.7 mmol/L 3.2 mmol/L White Blood Count 13.12 K/uL Red Blood Count 3.39 M/uL Hemoglobin 9.3 g/dL Hematocrit 31.6 % Mean Corpuscular Volume 93.2 fL Mean Corpuscular Hemoglobin 27.4 pg Mean Corpuscular Hemoglobin Concent 29.4 g/dl Platelet Count 153 K/uL Mean Platelet Volume 12.3 fL Neutrophils (%) (Auto) 85.3 % Lymphocytes (%) (Auto) 6.6 % Monocytes (%) (Auto) 6.3 % Eosinophils (%) (Auto) 0.1 % Basophils (%) (Auto) 0.1 % Neutrophils # (Auto) 11.20 K/uL Lymphocytes # (Auto) 0.87 K/uL Monocytes # (Auto) 0.82 K/uL Eosinophils # (Auto) 0.01 K/uL Basophils # (Auto) 0.01 K/uL RDW Standard Deviation 70.9 fL RDW Coefficient of Variation 22.0 % Immature Granulocyte % (Auto) 1.6 % Immature Granulocyte # (Auto) 0.21 K/uL Nucleated RBC Absolute Count (auto) 0.02 K/uL Nucleated Red Blood Cells % 0.1 % Anisocytosis PRESENT Activated Partial Thromboplast Time 25.8 SECONDS Partial Thromboplastin Ratio 1.0 Sodium Level 142 mmol/L Chloride Level 105 mmol/L Carbon Dioxide Level 32 mmol/L Anion Gap 5.0 mmol/L Blood Urea Nitrogen 31 mg/dl Creatinine 0.85 mg/dl Est Creatinine Clear Calc Drug Dose 70.8 ml/min Estimated GFR () 86.9 Estimated GFR (Non- 75.0 BUN/Creatinine Ratio 36.1 Random Glucose 95 mg/dl Calcium Level 8.3 mg/dl Test 02/08/17 06:44 02/08/17 11:33 Bedside Glucose 96 mg/dl 189 mg/dl Assessment & Plan ACUTE RESPIRATORY FAILURE Possible related to ARDS, pulmonary edema Intubated on vent support Chest x-ray with unchanged bilateral patchy pulmonary opacities Unable to get CTA chest due to VAUGHN Received IV lasix again today CXR today showed improvement in the pulmonary edema Monitor I/O Continue IV Rocephin Repeat blood cx no growth 02/08 S/P day 4 extubated On 4L Nasal canula More alert and awake today Clinically improved SEPSIS Pyelonephritis/bacteremia Blood cultures and Urine culture grew Escherichia coli Elevated lactic acid on admission, now normal Off pressor pressor Repeat cx no growth Continue Rocephin IV, will stop it on 02/09 ID on board Endometrial carcinoma Continue follow with Oncology Dr. García Oncology on board ANEMIA Hemoglobin today 9.3 No clear source of bleeding Pancytopenia secondary to chemotherapy for endometrial cancer Monitor CBC and transfused if needed FACTOR V LEYDEN DEFICIENCY No prior history of thrombotic disease Has not been on chronic outpatient anticoagulation Heparin drip was d/c Lower extremity duplex negative for DVT Now on therapeutic Lovenox Unable to get CTA chest to R/O pulmonary embolus secondary to acute kidney failure VAUGHN Renal ultrasound showed no hydronephrosis Creatinine continue improving 0.85 today Continue monitor BMP closely Resolved ELECTROLYTES IMBALANCE K 3.2 today K replaced Continue monitor BMP DVT PX D/C IV heparin drip On Lovenox CODE STATUS DNR DISPOSITION Continue monitor telemetry Consultants: Pediatric Allergist Hem/Oncology Infectious dx Current Inpatient Medications: Current Inpatient Medications Medications (Trade) Dose Ordered Sig/Alek Route Start Time Stop Time Status Last Admin Dose Admin Prochlorperazine Edisylate 5 mg/ Syringe 5 ml @ 5 mls/min Q6H PRN IV 01/29/17 13:00 02/28/17 12:59 02/08/17 05:51 5 MLS/MIN Levothyroxine Sodium (Synthroid Tab) 100 mcg DAILYBB PO 01/30/17 06:00 03/01/17 05:59 02/08/17 05:56 100 MCG Lorazepam (Ativan Tab) 0.5 mg BID PRN PO 01/29/17 13:15 02/28/17 13:14 02/01/17 04:12 0.5 MG Sertraline HCl (Zoloft Tab) 200 mg HS PO 01/29/17 21:00 02/28/17 20:59 02/07/17 21:06 200 MG Tramadol HCl (Ultram Tab) 50 mg Q6H PRN PO 01/29/17 13:15 02/28/17 13:14 01/31/17 12:30 50 MG Gabapentin (Neurontin Cap) 200 mg TID PO 01/30/17 09:00 02/28/17 13:59 02/08/17 08:17 200 MG Chlorhexidine Gluconate (Peridex Oral Soln) 15 ml DAILY MT 02/02/17 09:00 03/04/17 08:59 02/08/17 08:23 15 ML Miscellaneous Information (Consult Glycemic Management Pharmacy) 1 ea UD PRN N/A 02/02/17 13:44 03/04/17 13:43 Glucose (Glucose 40% Gel) UD PRN PO 02/02/17 15:15 03/04/17 15:14 Glucose (Glucose Chew Tab) 1 tabs UD PRN PO 02/02/17 15:15 03/04/17 15:14 Dextrose (Dextrose 50% 50ML Syringe) 50 ml UD PRN IV 02/02/17 15:15 03/04/17 15:14 02/03/17 09:09 50 ML Glucagon (Glucagon Inj) 1 mg UD PRN SQ 02/02/17 15:15 03/04/17 15:14 Acetaminophen (Tylenol Soln) 650 mg Q4H PRN PO 02/02/17 19:00 03/04/17 18:59 02/06/17 08:03 650 MG Ceftriaxone Sodium 2000 mg/ Dextrose 70 ml @ 140 mls/hr DAILY@1400 IV 02/03/17 14:00 02/09/17 16:00 02/07/17 13:40 140 MLS/HR Methylcellulose (Citrucel Powder) 1 gm BID PO 02/04/17 21:00 03/06/17 20:59 02/08/17 08:22 1 GM Enoxaparin Sodium (Lovenox Inj) 129 mg DAILY@0900 SQ 02/06/17 09:30 03/08/17 09:29 02/08/17 08:22 129 MG Insulin Aspart (novoLOG ASPART) SLIDING SCALE ACHS SC 02/06/17 16:00 03/08/17 15:59 02/08/17 12:55 3 UNITS Pantoprazole Sodium (Protonix Tab) 40 mg QAM PO 02/07/17 09:00 03/09/17 08:59 02/08/17 08:17 40 MG
[2017-02-08] MEDS: CEFTRIAXONE SOD INJ 2000 MG in DEXTROSE 5% 50ML IV SCH (14:12)
[2017-02-08 15:55] VITALS: BP 147/78; PULSE 68; TEMP 36.6; O2SAT 93
[2017-02-08 19:39] VITALS: BP 160/89; PULSE 82; TEMP 36.9; O2SAT 96
[2017-02-08] MEDS: SERTRALINE HCL 100 MG TAB PO SCH (20:48)
[2017-02-08 23:35] VITALS: BP 155/82; PULSE 69; TEMP 37.2; O2SAT 94
[2017-02-09 04:18] VITALS: BP 144/81; PULSE 79; TEMP 36.9; O2SAT 95
[2017-02-09] MEDS: LEVOTHYROXINE 100 MCG TAB PO SCH (05:34)
[2017-02-09 06:17] LABS: HEMATOCRIT 27.4 % (37-47); HEMOGLOBIN 8.3 g/dL (12.0-16.0); MEAN CELL VOLUME 94.5 fL (80-100); MEAN CORPUSCULAR HEMOGLOBIN 28.6 pg (25-34); MEAN CORPUSCULAR HGB CONC 30.3 g/dl (32-36); PLATELET COUNT 143 K/uL (130-400); RED CELL DISTRIBUTION WIDTH CV 22.3 % (11.5-14.5); RED CELL DISTRIBUTION WIDTH SD 73.9 fL (36.4-46.3); WHITE BLOOD COUNT 8.57 K/uL (4.8-10.8)
[2017-02-09 06:29] LABS: PTT PATIENT 27.9 SECONDS (21.0-31.0)
[2017-02-09] MEDS: INSULIN ASPART 100 UNITS/ML 3 ML PEN SC SCH ×4 (07:00→21:00)
[2017-02-09 07:01] LABS: CALCIUM 7.7 mg/dl (8.5-10.1); CREATININE 0.63 mg/dl (0.60-1.20); POTASSIUM 3.6 mmol/L (3.5-5.1)
[2017-02-09 07:32] VITALS: BP 158/88; PULSE 72; TEMP 36.9; O2SAT 99
[2017-02-09] MEDS: METHYLCELLULOSE POWDER 454 GM JAR PO SCH ×2 (08:12→19:30)
[2017-02-09] MEDS: GABAPENTIN 100 MG CAP PO SCH ×3 (08:14→19:30)
[2017-02-09] MEDS: PANTOprazole SOD 40 MG TAB PO SCH (08:14)
[2017-02-09] MEDS: ENOXAPARIN 150 MG/1ML SYR SQ SCH (08:16)
[2017-02-09] MEDS: CHLORHEXIDINE GLUCONATE 0.12% 480 ML MT SCH (09:00)
[2017-02-09 11:07] VITALS: BP 158/78; PULSE 76; TEMP 36.6; O2SAT 91
--- NOTE | 2017-02-09 14:12 | Pharmacy Progress Note ---
Pharmacy Glycemic Short Note 2 Date of Service Feb 09, 2017. OUTPATIENT ANTIDIABETIC REGIMEN: * N/A ASSESSMENT: * 61yo female with steroid induced hyperglycemia. A1c is 6.6% indicating a diagnosis of diabetes per ADA * Last dose of prednisone was yesterday, BSGs have been well controlled over the past 24hrs with minimal insulin dosing. May need to d.c CR tomorrow? Pt has little appetite so CR really isn't being utilized. Will lower goal range so more correctional insulin is given since CR is not. PLAN FOR INPATIENT GLYCEMIC CONTROL: * Basal insulin * N/A, none needed. AM fasting BSGs are in range * Bolus insulin * NovoLog per scale ACHS or Q6hrs while NPO * Goal Range: Low 110 mg/dL - High 140 mg/dL * Correction Factor: 25 mg/dL/unit * Nutritional / Prandial insulin per carb ratio of 1 unit per 15 grams CHO consumed
[2017-02-09] MEDS: CEFTRIAXONE SOD INJ 2000 MG in DEXTROSE 5% 50ML IV SCH (14:29)
[2017-02-09 15:51] VITALS: BP 156/84; PULSE 80; TEMP 36.7; O2SAT 91
--- NOTE | 2017-02-09 17:34 | Progress Note ---
Medicine Progress Note Date & Time of Visit: Feb 09, 2017 at 10:26. Subjective Pt was seen and examined Lying in bed with no distress Pt said that she feels slightly better She still does not have any appetite Pt said that she feels weak Denies any chest pain, palpitation, dizziness Objective Last 8 Hrs Date Time Temp Pulse Resp B/P (MAP) Pulse Ox O2 Delivery O2 Flow Rate FiO2 02/09/17 15:51 36.7 80 20 156/84 (108) 91 Nasal Cannula 2.0 02/09/17 12:00 Nasal Cannula 2.0 02/09/17 11:07 36.6 76 18 158/78 (104) 91 2.0 Physical Exam: General-no acute distress Head- atraumatic Eyes- PERRL ENT- tongue midline, trachea midline Neck- no JVD Lungs- Coarse BS, Decrease BS Heart- regular rhythm Abdomen- normal bowel sounds Neuro- Alert, awake and oriented, follow commands Skin- warm & dry Laboratory Results: Last 24 Hours Test 02/08/17 20:43 02/09/17 06:01 02/09/17 06:19 02/09/17 11:12 Bedside Glucose 102 mg/dl 115 mg/dl 125 mg/dl White Blood Count 8.57 K/uL Red Blood Count 2.90 M/uL Hemoglobin 8.3 g/dL Hematocrit 27.4 % Mean Corpuscular Volume 94.5 fL Mean Corpuscular Hemoglobin 28.6 pg Mean Corpuscular Hemoglobin Concent 30.3 g/dl RDW Standard Deviation 73.9 fL RDW Coefficient of Variation 22.3 % Platelet Count 143 K/uL Mean Platelet Volume 11.0 fL Activated Partial Thromboplast Time 27.9 SECONDS Partial Thromboplastin Ratio 1.1 Sodium Level 144 mmol/L Potassium Level 3.6 mmol/L Chloride Level 107 mmol/L Carbon Dioxide Level 31 mmol/L Anion Gap 6.0 mmol/L Blood Urea Nitrogen 20 mg/dl Creatinine 0.63 mg/dl Est Creatinine Clear Calc Drug Dose 95.1 ml/min Estimated GFR () 113.8 Estimated GFR (Non- 98.2 BUN/Creatinine Ratio 31.5 Random Glucose 111 mg/dl Calcium Level 7.7 mg/dl Test 02/09/17 12:19 02/09/17 16:34 Heparin Anti-Xa Act, Low Molec Wt 1.72 IU/ML Bedside Glucose 109 mg/dl Assessment & Plan ACUTE RESPIRATORY FAILURE Possible related to ARDS, pulmonary edema Intubated on vent support Chest x-ray with unchanged bilateral patchy pulmonary opacities Unable to get CTA chest due to VAUGHN Received IV lasix again today CXR today showed improvement in the pulmonary edema Monitor I/O Continue IV Rocephin Repeat blood cx no growth 02/09 S/P day 4 extubated On 4L Nasal canula More alert and awake today Clinically improved SEPSIS Pyelonephritis/bacteremia Blood cultures and Urine culture grew Escherichia coli Elevated lactic acid on admission, now normal Off pressor pressor Repeat cx no growth Continue Rocephin IV, will d/c IV abx today ID on board Endometrial carcinoma Continue follow with Oncology Dr. García Oncology on board ANEMIA Hemoglobin today 8.3 No clear source of bleeding Pancytopenia secondary to chemotherapy for endometrial cancer Monitor CBC and transfused if needed FACTOR V LEYDEN DEFICIENCY No prior history of thrombotic disease Has not been on chronic outpatient anticoagulation Heparin drip was d/c Lower extremity duplex negative for DVT Now on therapeutic Lovenox Unable to get CTA chest to R/O pulmonary embolus secondary to acute kidney failure VAUGHN Renal ultrasound showed no hydronephrosis Creatinine continue improving 0.60 today Continue monitor BMP closely Resolved ELECTROLYTES IMBALANCE K 3.6 today Continue monitor BMP DVT PX D/C IV heparin drip On Lovenox CODE STATUS DNR DISPOSITION Continue monitor telemetry Consultants: Lowerator Operator Hem/Oncology Infectious dx Current Inpatient Medications: Current Inpatient Medications Medications (Trade) Dose Ordered Sig/Alek Route Start Time Stop Time Status Last Admin Dose Admin Prochlorperazine Edisylate 5 mg/ Syringe 5 ml @ 5 mls/min Q6H PRN IV 01/29/17 13:00 02/28/17 12:59 02/08/17 05:51 5 MLS/MIN Levothyroxine Sodium (Synthroid Tab) 100 mcg DAILYBB PO 01/30/17 06:00 03/01/17 05:59 02/09/17 05:34 100 MCG Lorazepam (Ativan Tab) 0.5 mg BID PRN PO 01/29/17 13:15 02/28/17 13:14 02/01/17 04:12 0.5 MG Sertraline HCl (Zoloft Tab) 200 mg HS PO 01/29/17 21:00 02/28/17 20:59 02/08/17 20:48 200 MG Tramadol HCl (Ultram Tab) 50 mg Q6H PRN PO 01/29/17 13:15 02/28/17 13:14 01/31/17 12:30 50 MG Gabapentin (Neurontin Cap) 200 mg TID PO 01/30/17 09:00 02/28/17 13:59 02/09/17 14:27 200 MG Chlorhexidine Gluconate (Peridex Oral Soln) 15 ml DAILY MT 02/02/17 09:00 03/04/17 08:59 02/08/17 08:23 15 ML Miscellaneous Information (Consult Glycemic Management Pharmacy) 1 ea UD PRN N/A 02/02/17 13:44 03/04/17 13:43 Glucose (Glucose 40% Gel) UD PRN PO 02/02/17 15:15 03/04/17 15:14 Glucose (Glucose Chew Tab) 1 tabs UD PRN PO 02/02/17 15:15 03/04/17 15:14 Dextrose (Dextrose 50% 50ML Syringe) 50 ml UD PRN IV 02/02/17 15:15 03/04/17 15:14 02/03/17 09:09 50 ML Glucagon (Glucagon Inj) 1 mg UD PRN SQ 02/02/17 15:15 03/04/17 15:14 Acetaminophen (Tylenol Soln) 650 mg Q4H PRN PO 02/02/17 19:00 03/04/17 18:59 02/06/17 08:03 650 MG Methylcellulose (Citrucel Powder) 1 gm BID PO 02/04/17 21:00 03/06/17 20:59 02/08/17 08:22 1 GM Enoxaparin Sodium (Lovenox Inj) 129 mg DAILY@0900 SQ 02/06/17 09:30 03/08/17 09:29 02/09/17 08:16 129 MG Insulin Aspart (novoLOG ASPART) SLIDING SCALE ACHS SC 02/06/17 16:00 03/08/17 15:59 02/08/17 12:55 3 UNITS Pantoprazole Sodium (Protonix Tab) 40 mg QAM PO 02/07/17 09:00 03/09/17 08:59 02/09/17 08:14 40 MG
[2017-02-09] MEDS: SERTRALINE HCL 100 MG TAB PO SCH (19:30)
[2017-02-09 19:57] VITALS: BP 164/92; PULSE 89; TEMP 36.7; O2SAT 94
[2017-02-09 23:40] VITALS: BP 151/83; PULSE 86; TEMP 36.8; O2SAT 96
[2017-02-10] VITALS (12 sets, daily range): BP systolic 101–166; BP diastolic 67–90; PULSE 77–92; TEMP 36.5–37.2; O2SAT 92–99
[2017-02-10] MEDS: TRAMADOL HCL 50 MG TAB PO PRN ×2 (02:32→20:06)
[2017-02-10] MEDS: LEVOTHYROXINE 100 MCG TAB PO SCH (06:09)
[2017-02-10] MEDS: INSULIN ASPART 100 UNITS/ML 3 ML PEN SC SCH ×4 (07:00→22:00)
[2017-02-10] MEDS: PANTOprazole SOD 40 MG TAB PO SCH (08:36)
[2017-02-10] MEDS: GABAPENTIN 100 MG CAP PO SCH ×3 (08:37→20:05)
[2017-02-10] MEDS: ENOXAPARIN 150 MG/1ML SYR SQ SCH (08:37)
[2017-02-10] MEDS: METHYLCELLULOSE POWDER 454 GM JAR PO SCH ×3 (08:38→20:34)
[2017-02-10] MEDS: CHLORHEXIDINE GLUCONATE 0.12% 480 ML MT SCH (08:41)
--- NOTE | 2017-02-10 12:27 | Pharmacy Progress Note ---
Pharmacy Glycemic Short Note 2 Date of Service Feb 10, 2017. OUTPATIENT ANTIDIABETIC REGIMEN: * N/A ASSESSMENT: * 61yo female with steroid induced hyperglycemia. A1c is 6.6% indicating a diagnosis of diabetes per ADA * Prednisone was discontinued on 02/09. All BSGs have been at goal since then. Patient required no insulin over the past 24 hours. * Basal insulin was discontinued on 02/09. Fasting BSG at goal. * Will keep correctional insulin with Novolog. Remove carb ratio per patient with poor appetite. PLAN FOR INPATIENT GLYCEMIC CONTROL: * Basal insulin * none needed * Bolus insulin * NovoLog per scale ACHS or Q6hrs while NPO * Goal Range: Low 110 mg/dL - High 140 mg/dL * Correction Factor: 25 mg/dL/unit Thank you.
--- NOTE | 2017-02-10 14:32 | Progress Note ---
Internal Med Progress Note Date of Service: Feb 10, 2017. Provider Documentation: SUBJECTIVE: complains of pain , discomfort on neck rt sided as she slept sideways on her hand last night using heating pad 2-3 pillow orthopnea noted - on 02 2 L via nasal canula . denies of pain or discomfort at rest as per PT note today -pt is noted to be SOB with minimum activity /transfers , improves with pursed lip breathing pt mentions of feeling very weak and tired , has no energy no complain of cough or chest heaviness , felt dizzy earlier today with attempt to stand , no syncope no fever or chills OBJECTIVE: Vital Signs-as noted below Exam: General-elderly female , no apparent distress Eyes-sclera non icteric , PERRLA/EOMI , loss of hair due to chemo tx ENT-moist oral mucosa , poor dentition Neck-trachea midline, no thyromegaly Lungs-breath sound diminished Heart-regular S1/S2 Abdomen-soft, non tender Extremities- no rash Neuro-AAO x3 , no focal neurological deficit , generalized weakness Lab data as noted below. ASSESSMENT & PLAN: ACUTE RESPIRATORY FAILURE resolved, on via nasal canula Possible related to ARDS, pulmonary edema-cardiogenic shock / severe sepsis required ICU transfer , Intubation /vent support treated with broad spectrum Abx with IV Rocephin for gram negative bacteremia Day # 10 appreciate input form Agency Manager S/P extubation on 02/05 Chest x-ray with unchanged bilateral patchy pulmonary opacities Unable to get CTA chest due to VAUGHN, Cr improved to baseline pt still showing episode of hypoxia , PRATER on supplemental 02 was not on home 02 prior to admission on therapeutic Lovenox will order CTA of chest to assess for possible PE NON ISCHEMIC CARDIOMYOPATHY /ACUTE CHF WITH RT HEART FAILURE : ECHO on 01/30/17 : EF 65-70% , no regional wall motion abnormality noted /LV systolic function nl repeat ECHO 3 days later on 02/02/17 : severe global hypokinesis with EF 25-30% , LV /RV function severely reduced compared to study on 01/30/17 Mildly Dilated RV chamber /moderate to severe rt ventricular Hypokinesis that spares RV Fork developed acute respiratory failure , with hypoxia, vol over load required ICU transfer /mechanical ventilation /IV Lasix diuresis not on any diuretics at present renal function improved to baseline will D/C Aixa concern for possible PE with saddle emboli causing acute RT heart failure vs Takotsubo cardiomyopathy due to sepsis will order repeat ECHO to assess improvement pt is still very SOB /showing evidence of PRATER /+ orthopnea Cardiology eval requested SEVERE SEPSIS/GRAM NEGATIVE BACTEREMIA /E COLI UTI : Pyelonephritis/bacteremia; Developed ARDS /acute respiratory failure requiring mechanical ventilation , pressor support -ICU transfer Resolved ; extubated on 02/05/17 Blood cultures and Urine culture grew Escherichia coli 01/29/17 repeat Blood culture /urine culture 02/02/17 -no growth appreciate input form Agency Manager and ID Dr Rene pt treated with broad spectrum Abx Rocephin # 10 days ( discontinued on ) pt also received Cefepime # 5 days /Ciprofloxacin # 2 /Vancomycin # 1 Right IJ Central line D/julita on 02/05/17 remains stable hemodynamically ENDOMETRIAL CA : HX of endometrial CA -Pathology : Clear cell variant , localized disease involving the endometrium only no pelvic lymph node involvement CA 125 level elevated > 90 was been followed with Heme onc Dr García at [facility] pt received Ist cycle of chemo with Paclitaxel and Carboplatin on 12/31/16 also received prophylactic Neulasta on the following day for prophylaxis of febrile neutropenia pt never received 2nd cycle of chemo due to ongoing issues with weakness, N/V , electrolyte imbalance , thrombocytopenia admitted on 01/29/17 with N/V , abdominal pain developed ARDS , respiratory failure , found to have gram negative bacteremia , pyelonephritis urine culture gram negative bacilli E .Coli ( 01/29/17 ) Blood culture gram negative bacilli E.coli ( 01/29/17 ) appreciate input form Heme Onc pt did not had any Chemo tx > 4 weeks due to acute illness prognosis remains poor pt will be followed at Heme Onc office once medically stable /Discharged to D/ w future chemo ANEMIA due to anemia of chronic disease -Malignancy/ chemo tx No clear source of bleeding Pancytopenia secondary to chemotherapy for endometrial cancer s/p 2 units of irradiated PRBC transfusion on 01/30/17 ( hb dropped to 6.4 ) Hb improved ~9 today Heme onc following FACTOR V LEIDEN DEFICIENCY dx in 2013 , 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 was on Coumadin for 1 month Has not been on chronic outpatient anticoagulation Lower extremity duplex negative for DVT started on therapeutic Lovenox 1 mg /kg /daily in ICU on 02/06/17 Unable to get CTA chest to R/O pulmonary embolus secondary to acute kidney failure given hx of Malignancy -will need life long anticoagulation ACUTE RENAL FAILURE /CKD STAGE 3 Renal ultrasound showed no hydronephrosis Resolved Creatinine improved 0.60 DVT PX On Lovenox 1mg/kg SC daily high risk of thromboembolic event due to uterine CA will need life long Lovenox tx CODE STATUS DNR/DNI DISPOSITION to be determined Living at home with /was independent on ADL's prior to admission Marked functional decline , multiple hospital admissions after chemo thx , ICU admission , intubation PT/OT eval requested PT eval today 02/10/17 appreciated -pt requires moderate 1 person assist with transfer , demonstrates decreased strength /Endurance /balance and mobility OT noted on 02/06/17 -2 person assist , SOB and fatigues easily , unable to take any step due to decreased endurance /increased SOB will ask for updated OT eval will benefit form SNF /Rehab will D/w family members - Bernardo Elaine /Daughter Nedra for plan to return home will need 2 step exercise and home 02 arrangement Social service following for discharge planning Medicine follow up with Dr Holland Heme /Onc follow up with Dr García Consultants: Agency Manager Hem/Oncology Infectious dx Vital Signs: Date Time Temp Pulse Resp B/P (MAP) Pulse Ox O2 Delivery O2 Flow Rate FiO2 02/10/17 20:06 Nasal Cannula 2.0 02/10/17 19:43 36.8 85 20 152/88 (109) 99 Nasal Cannula 2.0 02/10/17 15:51 36.9 92 16 151/90 (110) 94 Nasal Cannula 2.0 02/10/17 15:13 92 Nasal Cannula 2.0 02/10/17 12:00 92 Nasal Cannula 2.0 02/10/17 11:12 36.6 88 18 129/84 (99) 97 2.0 02/10/17 08:00 92 Nasal Cannula 2.0 02/10/17 07:26 37.2 77 18 166/80 (108) 97 2.0 02/10/17 04:00 92 Nasal Cannula 2.0 02/10/17 03:40 36.8 81 18 161/82 (108) 94 Nasal Cannula 2.0 Humidified Oxygen 02/10/17 00:00 96 Nasal Cannula 2.0 02/09/17 23:40 36.8 86 22 151/83 (105) 96 Nasal Cannula 2.0 Humidified Oxygen Lab Results: Results Past 24 Hours Test 02/10/17 06:25 02/10/17 11:05 02/10/17 14:26 02/10/17 22:02 Range/Units Bedside Glucose 112 121 107 70-90 mg/dl White Blood Count 10.72 4.8-10.8 K/uL Red Blood Count 3.07 4.2-5.4 M/uL Hemoglobin 9.0 12.0-16.0 g/dL Hematocrit 28.4 37-47 % Mean Corpuscular Volume 92.5 80-100 fL Mean Corpuscular Hemoglobin 29.3 25-34 pg Mean Corpuscular Hemoglobin Concent 31.7 32-36 g/dl RDW Standard Deviation 73.7 36.4-46.3 fL RDW Coefficient of Variation 22.2 11.5-14.5 % Platelet Count 204 130-400 K/uL Mean Platelet Volume 11.2 7.4-10.4 fL
[2017-02-10 15:35] LABS: HEMATOCRIT 28.4 % (37-47); MEAN CELL VOLUME 92.5 fL (80-100); MEAN CORPUSCULAR HEMOGLOBIN 29.3 pg (25-34); MEAN CORPUSCULAR HGB CONC 31.7 g/dl (32-36); MEAN PLATELET VOLUME 11.2 fL (7.4-10.4); PLATELET COUNT 204 K/uL (130-400); RED CELL DISTRIBUTION WIDTH CV 22.2 % (11.5-14.5); RED CELL DISTRIBUTION WIDTH SD 73.7 fL (36.4-46.3); WHITE BLOOD COUNT 10.72 K/uL (4.8-10.8)
[2017-02-10] MEDS: SERTRALINE HCL 100 MG TAB PO SCH (20:05)
[2017-02-10] MEDS: BOOST VANILLA PO SCH (20:06)
[2017-02-10] MEDS ORDERED: ACETAMINOPHEN 325 MG TAB PO PRN (23:00)
[2017-02-10] MEDS: METOPROLOL SUCC 25MG EXT REL TAB PO SCH (23:56)
[2017-02-11 03:04] VITALS: BP 145/91; PULSE 87; TEMP 36.8; O2SAT 97
[2017-02-11 06:15] LABS: HEMATOCRIT 27.4 % (37-47); HEMOGLOBIN 8.4 g/dL (12.0-16.0); MEAN CELL VOLUME 93.8 fL (80-100); MEAN CORPUSCULAR HEMOGLOBIN 28.8 pg (25-34); MEAN CORPUSCULAR HGB CONC 30.7 g/dl (32-36); MEAN PLATELET VOLUME 10.8 fL (7.4-10.4); PLATELET COUNT 201 K/uL (130-400); RED CELL DISTRIBUTION WIDTH CV 22.4 % (11.5-14.5); RED CELL DISTRIBUTION WIDTH SD 74.3 fL (36.4-46.3); WHITE BLOOD COUNT 6.99 K/uL (4.8-10.8)
[2017-02-11] MEDS: LEVOTHYROXINE 100 MCG TAB PO SCH (06:22)
[2017-02-11 06:47] LABS: CREATININE 0.45 mg/dl (0.60-1.20); POTASSIUM 3.5 mmol/L (3.5-5.1)
[2017-02-11] MEDS: INSULIN ASPART 100 UNITS/ML 3 ML PEN SC SCH ×5 (07:00→22:00)
[2017-02-11] MEDS ORDERED: OPTIRAY 320 IV PRN (07:15)
[2017-02-11 08:00] VITALS: BP 131/82; PULSE 86; TEMP 36.4; O2SAT 96
[2017-02-11] MEDS: BOOST VANILLA PO SCH ×2 (08:37→20:38)
[2017-02-11] MEDS: CHLORHEXIDINE GLUCONATE 0.12% 480 ML MT SCH (09:00)
[2017-02-11] MEDS ORDERED: METHYLCELLULOSE POWDER 454 GM JAR PO PRN (09:00)
[2017-02-11] MEDS ORDERED: POTASSIUM CHLORIDE 10 MEQ TABCR PO STA (09:24)
--- NOTE | 2017-02-11 09:31 | DIAGNOSTIC IMAGING REPORT ---
(CHEST FOR PE) ANGIO WITH CLINICAL HISTORY: 61 years-old Female presenting with ^hypoxia /SOB /ECHO RV STRAIN EVALUATION FOR PE. TECHNIQUE: Multidetector CT angiography of the chest was performed after administration of intravenous contrast. 3-D volumetric and/or maximum intensity projection (MIP) images were subsequently reconstructed for review. IV contrast: 93 mL of Optiray 320. A dose lowering technique was used consistent with the principles of ALARA (as low as reasonably achievable). COMPARISON: Chest x-ray performed on 02/05/2017. CT DOSE (mGy.cm): The estimated cumulative dose is 517.20 mGy.cm. 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 Interval extubation. Right internal jugular Mediport terminates at the confluence of the right subclavian and right internal jugular veins. Interval removal of the nasogastric tube. Interval removal of the left IJ central venous catheter. Pulmonary vasculature: The study is adequate for assessment of the pulmonary vascular tree. No filling defect within the pulmonary arteries to suggest embolus. Main pulmonary artery is top normal in size. No flattening of the interventricular septum. No intracardiac intracardiac filling defect. No reflux of contrast into the hepatic veins. Remaining chest: On soft tissue windows, normal thyroid and thoracic inlet. No axillary, supraclavicular, hilar, or mediastinal lymphadenopathy. Atherosclerosis of the aorta. Mild multichamber enlargement of the heart. Mild coronary artery calcification. Small pericardial effusion. Small bilateral pleural effusions. Nodular contour of the liver. Cholecystectomy clips. Postsurgical changes of gastric sleeve procedure. On lung windows, patchy groundglass and more solid consolidation most prominently at the apices but involving all 5 lobes. This has both a peribronchovascular and peripheral distribution. Airways patent. On bone windows, normal osseous structures. IMPRESSION: 1. No evidence of pulmonary embolus. 2. Multifocal groundglass and solid consolidation involving all 5 lobes with an upper lobe predominance, most consistent with multifocal pneumonia. 3. Mild cardiomegaly. 4. Nodular liver contour could underlying fibrosis/cirrhosis. Electronically signed by: Devaughn Ozuna M.D. 02/11/2017 9:30 AM Dictated Date/Time: 02/11/2017 9:22 AM
[2017-02-11] MEDS: METOPROLOL SUCC 25MG EXT REL TAB PO SCH (09:43)
[2017-02-11] MEDS: TRAMADOL HCL 50 MG TAB PO PRN (09:43)
[2017-02-11] MEDS: GABAPENTIN 100 MG CAP PO SCH ×3 (09:43→20:37)
[2017-02-11] MEDS: PANTOprazole SOD 40 MG TAB PO SCH (09:43)
[2017-02-11] MEDS: ENOXAPARIN 150 MG/1ML SYR SQ SCH (09:44)
--- NOTE | 2017-02-11 10:24 | Cardiology Consultation ---
Cardiology Consultation Date of Consultation: Feb 11, 2017 Requesting Physician: Yadiel Attending Mobile Paramedical Examiner: Adilene (Mark Francisco PA-C) History of Present Illness Mrs. Elaine is a very pleasant 61 year old female who is being seen at the request of Dr. Cotto. Reasons for consultation include CHF, cardiomyopathy. Mrs. Elaine was admitted to [facility] back on January 29, 2017 with initial complaints of weakness, nausea/vomiting, diarrhea, and poor PO. Patient with a history of endometrial cancer, beginning chemotherapy in December under the direction of Dr. Laurie García. Labs on presentation revealed acute kidney injury, hypokalemia, lactic acidosis, and progressive anemia, pancytopenia. Patient was febrile, hypotensive, and tachycardia, developing acute respiratory failure felt to be secondary to severe E. coli urosepsis. On January 30, 2017 she underwent resting echocardiography that was interpreted by Dr. Li. Notable findings included sinus tachycardia at 130 bpm , normal systolic function with mild concentric left ventricular hypertrophy, without regional wall motion abnormalities. EF 65-70%. No significant valvular disease observed. A very small posterolateral loculated pericardial effusion was present. In the evening of February 01, 2017 she developed acute respiratory failure while on BiPAP. She was transferred to the ICU and intubated. A limited TTE on February 02, 2017 revealed severely reduced LV systolic function with severe global hypokinesis, EF 25-30%. The RV was noted to be mildly dilated with moderate to severe right ventricular hypokinesis sparing the right ventricular apex. Fluids were discontinued and she was given IV diuretic therapy with improvement. She was ultimately extubated on . Yesterday she was noted to have ongoing hypoxemia requiring supplemental oxygen therapy. Repeat TTE was requested along with cardiology consultation as well as a CT scan of the chest this morning. Patient denies chest pain. She denies current dyspnea or orthopnea. No PND. No peripheral edema. No lightheadedness, dizziness, or syncope. No current fevers or rigors. (Mark Francisco PA-C) Past Medical/Surgical History Problem List: Medical Problems: (1) B12 deficiency (2) Benign hypertension (3) Dehydration (4) Depression (5) Diabetes mellitus type 2 (6) Dyslipidemia (7) Electrolyte abnormality (8) Factor V Leiden mutation (9) Hypothyroidism (10) Localized, primary osteoarthritis of the lower leg (11) Nonulcer dyspepsia (12) Recurrent falls (13) Septic shock (14) Total replacement of hip (15) Urinary tract infection Surgical Problems: (1) History of bilateral knee arthroplasty (2) Hx of cholecystectomy (3) Hx of gastric bypass (Mark Francisco PA-C) Family History Diabetes mellitus SISTER FH: CAD (coronary artery disease) MOTHER (LA) FH: cancer MOTHER (endometrial CA) SISTER (endometrial CA or ovarian CA) (Mark Francisco PA-C) Diabetes mellitus SISTER FH: CAD (coronary artery disease) MOTHER (LA) FH: cancer MOTHER (endometrial CA) SISTER (endometrial CA or ovarian CA) (Francisco Head, ) Social History Smoking Status: Never Smoker Smokeless Tobacco Use: No Alcohol Use: none Drug Use: none Marital Status: Housing Status: lives with family Occupation: disabled (Mark Francisco PA-C) Review Of Systems General: No current fever or chills. HEENT: No headache. Cardiovascular: + PRATER. No chest pain. No palpitations. No edema. No syncope. Pulmonary: + Cough. No hemoptysis. Gastrointestinal: + nausea, vomiting, diarrhea. Hx gastric bypass. Skin: No rash. Musculoskeletal: Left greater than right wrist pain. Right sided neck pain yesterday. Neurological: No history of TIA, CVA, or seizures Complete review of systems is as stated above, negative, or noncontributory. (Mark Francisco PA-C) Allergies Coded Allergies: No Known Allergies (Verified , 01/29/17) Medications Reported Home Medications Medications Dose Route/Sig Max Daily Dose Days Date Category Dose Instructions Ultram (Tramadol HCl) 50 Mg Tab 50 Mg PO Q6H PRN 01/29/17 Reported Compazine (Prochlorperazine Maleate) 10 Mg Tab 1 Tab PO Q6 7 01/29/17 Reported Zofran (Ondansetron Hcl) 8 Mg Tab 8 Mg PO Q8 01/29/17 Reported Mobic (Meloxicam) 15 Mg Tab 15 Mg PO DAILY 01/29/17 Reported Decadron (Dexamethasone) 4 Mg Tab 5 Tab PO UD 01/29/17 Reported 5 tab po with food night before chemo and on the morning of the day of chemo Tylenol (Acetaminophen) 500 Mg Tab 1,000 Mg PO Q6 PRN 01/29/17 Reported Toprol-Xl (Metoprolol Succinate) 50 Mg Tabcr 50 Mg PO QAM 01/08/17 Reported Synthroid (Levothyroxine Sodium) 100 Mcg Tab 100 Mcg PO DAILY 01/08/17 Reported Ativan (Lorazepam) 0.5 Mg Tab 0.5 Mg PO BID PRN 12/29/16 Reported Zoloft (Sertraline HCl) 100 Mg Tab 200 Mg PO HS 12/25/16 Reported Lipitor (Atorvastatin Calcium) 40 Mg Tab 40 Mg PO HS 12/25/16 Reported Protonix (Pantoprazole Sodium) 40 Mg Tab 40 Mg PO QAM 12/25/16 Reported Neurontin (Gabapentin) 300 Mg Cap 300 Mg PO TID 12/25/16 Reported Vitamin D 1000 Unit (Cholecalciferol) 1,000 Unit Cap 4,000 Inter.unit PO DAILY 05/11/13 Reported Fosamax (Alendronate Sodium) 70 Mg Tab 70 Mg PO WK 05/11/13 Reported TAKE THIS MEDICATION EVERY THURSDAY WITH 8 OUNCES OF WATER, 30 MINUTES BEFORE FIRST MEAL OF THE DAY. REMAIN UPRIGHT FOR 30 MINUTES AFTER TAKING. Oxybutynin Chloride Er (Oxybutynin Chloride) 5 Mg Tab 10 Mg PO QAM 05/11/13 Reported Hctz (Hydrochlorothiazide) 12.5 Mg Cap 12.5 Mg PO DAILY 01/01/12 Reported Trazodone (Trazodone HCl) 100 Mg Tab 100 Mg PO HS 10/29/09 Reported (Mark Francisco PA-C) Physical Exam Vital Signs (Last 8hrs): Last 8 Hrs Date Time Temp Pulse Resp B/P (MAP) Pulse Ox O2 Delivery O2 Flow Rate FiO2 02/11/17 08:00 36.4 86 20 131/82 (98) 96 Nasal Cannula 2.0 02/11/17 04:00 Nasal Cannula 2.0 02/11/17 03:04 36.8 87 22 145/91 (109) 97 Nasal Cannula 2.0 General: Alert and Oriented to person, place and time. NAD. Older than physiologic age. HEENT: Alopecia. PER. EOMI. Conjunctiva and sclera clear. Mucous membranes are dry. Poor dentition. Neck: Pressure dressing to the left neck. No carotid bruit on the right. Normal JVP. Respiratory: Breath sounds clear to auscultation anteriorly and laterally. Cardiovascular: Regular at 90 bpm. No murmur appreciated. No rub. PMI was not found. Abdomen: +BS. Soft. Nontender. Extremities: Trivial edema. No clubbing. No cyanosis. Distal pulses 1/4 bilaterally. Neuro: No focal deficits. Psychiatric: Flat affect. (Mark Francisco PA-C) Data Last 24 Hours Test 02/10/17 11:05 02/10/17 14:26 02/10/17 22:02 02/11/17 05:47 Bedside Glucose 121 mg/dl 107 mg/dl White Blood Count 10.72 K/uL 6.99 K/uL Red Blood Count 3.07 M/uL 2.92 M/uL Hemoglobin 9.0 g/dL 8.4 g/dL Hematocrit 28.4 % 27.4 % Mean Corpuscular Volume 92.5 fL 93.8 fL Mean Corpuscular Hemoglobin 29.3 pg 28.8 pg Mean Corpuscular Hemoglobin Concent 31.7 g/dl 30.7 g/dl RDW Standard Deviation 73.7 fL 74.3 fL RDW Coefficient of Variation 22.2 % 22.4 % Platelet Count 204 K/uL 201 K/uL Mean Platelet Volume 11.2 fL 10.8 fL Sodium Level 140 mmol/L Potassium Level 3.5 mmol/L Chloride Level 105 mmol/L Carbon Dioxide Level 29 mmol/L Anion Gap 6.0 mmol/L Blood Urea Nitrogen 10 mg/dl Creatinine 0.45 mg/dl Est Creatinine Clear Calc Drug Dose 128.8 ml/min Estimated GFR () 127.1 Estimated GFR (Non- 109.7 BUN/Creatinine Ratio 23.2 Random Glucose 110 mg/dl Calcium Level 8.0 mg/dl Magnesium Level 2.0 mg/dl Test 02/11/17 06:05 Bedside Glucose 110 mg/dl TTE x 3 are summarized above. The last EKG was obtained on 03-FEB-2017 @ 09:04:21, demonstrating normal sinus rhythm at 80 bpm with left axis deviation, nonspecific ST and T wave abnormality , and poor R wave progression (consider anterior LA vs. lead placement vs. LVH) Telemetry: Currently since at 92 bpm. Rare ectopy. (Mark Francisco PA-C) Assessment & Plan Suspected resolved stress induced cardiomyopathy (Takotsubo) secondary to the acute illness No current evidence of acute decompensated heart failure RECOMMENDATIONS/PLAN: Await interpretation of the echocardiogram obtained this morning Continue Toprol XL without interruption. Conservative cardiac medical management. (Mark Francisco PA-C) CARDIOLOGY ATTENDING ADDENDUM: The patient was seen and personally examined. Agree with Mark Francisco PA-C's findings and plans as documented above. Final interp of echo pending. Will have further recommendations after. (Francisco Head, DO)
--- NOTE | 2017-02-11 10:44 | Progress Note ---
Progress Note Date of Service Feb 11, 2017. Progress Note ATTENDING NOTE : CT chest with contrast done this AM report reviewed : IMPRESSION: 1. No evidence of pulmonary embolus. 2. Multifocal ground glass and solid consolidation involving all 5 lobes with an upper lobe predominance, most consistent with multifocal pneumonia. ID following , d/w Dr Rene due to Hospital Acquired Pneumonia -pt will need broader gram negative coverage recommend Imipenem IV ordered for sputum culture and gram statin will follow ID recommendation for duration of tx Repeat cxray in 2-3 days to assess improvement
[2017-02-11] MEDS ORDERED: LEVOFLOXACIN 750 MG TAB PO SCH (11:00)
[2017-02-11 12:00] VITALS: BP 156/94; PULSE 81; TEMP 37; O2SAT 97
[2017-02-11] MEDS: IMIPENEM/CILASTATIN IV 500 MG in DEXTROSE 5% 100ML 100 ML IV SCH ×3 (12:05→23:26)
--- NOTE | 2017-02-11 13:41 | ECHOCARDIOGRAM REPORT ---
*NOTICE TO RECEIVING [employer]Y This information is strictly Confidential and protected under [place] law. [place] law prohibits you from making any further disclosure of this information unless further disclosure is expressly permitted by the written consent of the person to whom it pertains or is authorized by law. A general authorization for the release of medical or other information is not sufficient for this purpose. Hospital accepts no responsibility if the information is made available to any other person, INCLUDING THE PATIENT. Interpretation Summary * Name: TACOS AGUILERA Study Date: 02/11/2017 07:01 AM BP: 145/91 mmHg * Patient Location: C.2T\S\S236\S\1 HR: 77 * : 1955 (M/d/yyyy) Gender: Female Height: 60 in * Age: 61 yrs Ethnicity: CA Weight: 194 lb * Ordering Physician: Joan Cotto * Referring Physician: Self, Referred * Performed By: Gia Soriano RCS * * Reason For Study: CHF * BSA: 1.8 m2 * -- Conclusions -- * The left ventricular cavity is small. * There is moderate concentric left ventricular hypertrophy. * Ejection Fraction = 60-65%. * The right ventricular systolic function is normal. * The left atrial size is normal. * Right atrial size is normal. * No significant valvular pathology. Procedure Details * Limited views were obtained. * A contrast injection of Definity was performed to improve assessment of LV function. * Contrast was injected into an intravenous site in the left arm. * One vial of Definity ultrasound contrast was diluted in normal saline to a total volume of 10 ml. A total of '2' ml of solution was administered during imaging. * Lot # [id number] of Definity utilized for procedure. * Expiration date 1 APR 06. * The attending nurse who injected the contrast agent was WILLOW CAR RN. Left Ventricle * The left ventricular cavity is small. * There is moderate concentric left ventricular hypertrophy. * Left ventricular systolic function is normal. * Ejection Fraction = 60-65%. * The left ventricular wall motion is normal. Right Ventricle * The right ventricle is normal size. * The right ventricular systolic function is normal. Atria * The left atrial size is normal. * Right atrial size is normal. * There is no evidence of atrial septal defect, but resolution does not allow assessment for a patent foramen ovale. Mitral Valve * The mitral valve anatomy is normal. * Significant mitral regurgitation is absent. Tricuspid Valve * The tricuspid valve is not well visualized, but is grossly normal. * Significant tricuspid regurgitation is absent. Aortic Valve * The aortic valve is tricuspid. The leaflet thickness if normal. There is no aortic stenosis, and no significant insufficiency. * Aortic stenosis is absent. * There is no significant aortic regurgitation. Pulmonic Valve * The pulmonic valve is not well visualized. Great Vessels * The aortic root and proximal ascending aorta are normal sized. Pericardium/Pleural * Small pericardial effusion. MMode 2D Measurements and Calculations IVSd 1.5 cm IVSs 1.4 cm LVIDd 3.9 cm LVIDs 2.4 cm LVPWd 1.4 cm LVPWs 1.5 cm IVS/LVPW 1.1 FS 37.6 % EDV(Teich) 65.6 ml ESV(Teich) 20.8 ml EF(Teich) 68.3 % EDV(cubed) 59.0 ml ESV(cubed) 14.3 ml EF(cubed) 75.7 % % IVS thick -3.97 % % LVPW thick 7.7 % LV mass(C)d 209.3 grams LV mass(C)dI 113.6 grams/m\S\2 LV mass(C)s 116.1 grams LV mass(C)sI 63.0 grams/m\S\2 SV(Teich) 44.8 ml SI(Teich) 24.3 ml/m\S\2 SV(cubed) 44.6 ml SI(cubed) 24.2 ml/m\S\2 LVOT diam 2.0 cm LVOT area 3.0 cm\S\2 LVAd ap4 31.8 cm\S\2 LVLd ap4 7.4 cm EDV(MOD-sp4) 110.8 ml EDV(sp4-el) 115.4 ml LVAs ap4 21.1 cm\S\2 LVLs ap4 6.7 cm ESV(MOD-sp4) 54.5 ml ESV(sp4-el) 56.7 ml EF(MOD-sp4) 50.8 % EF(sp4-el) 50.9 % LVAd ap2 26.2 cm\S\2 LVLd ap2 6.9 cm EDV(MOD-sp2) 81.1 ml EDV(sp2-el) 83.9 ml LVAs ap2 14.5 cm\S\2 LVLs ap2 5.5 cm ESV(MOD-sp2) 31.1 ml ESV(sp2-el) 32.4 ml EF(MOD-sp2) 61.6 % EF(sp2-el) 61.3 % LVLd %diff -7.02 % EDV(MOD-bp) 98.0 ml LVLs %diff -21.01 % ESV(MOD-bp) 45.4 ml EF(MOD-bp) 53.7 % SV(MOD-sp4) 56.3 ml SI(MOD-sp4) 30.6 ml/m\S\2 SV(MOD-sp2) 49.9 ml SI(MOD-sp2) 27.1 ml/m\S\2 SV(MOD-bp) 52.6 ml SI(MOD-bp) 28.6 ml/m\S\2 SV(sp4-el) 58.7 ml SI(sp4-el) 31.9 ml/m\S\2 SV(sp2-el) 51.5 ml SI(sp2-el) 27.9 ml/m\S\2
[2017-02-11] MEDS ORDERED: METHYLPREDNISOLONE IV 40 MG in SYRINGE 0 ML IV STA (15:03)
[2017-02-11 16:04] VITALS: BP 128/77; PULSE 79; TEMP 37.4; O2SAT 98
--- NOTE | 2017-02-11 17:05 | Progress Note ---
Internal Med Progress Note Date of Service: Feb 11, 2017. Provider Documentation: SUBJECTIVE: mentions of feeling better today less SOB continued to have cough with productive sputum complains of pain on rt wrist -swelling and pain extending upto elbow no fever or chills , 3 daughters present at bedside -updated pt's status family agreeable that due to marked decline in status -pt will benefit to Short term rehab after being discharged from hospital [facility] be near to family to visit ( one of the daughter works at [employer] ) also requests to help with advance direction for living will and to establish POA -to help to direct medical care , if pt's condition declines in future Patient medical center representative /Advocate consulted OBJECTIVE: Vital Signs-as noted below Exam: General-elderly female , no apparent distress Eyes-sclera non icteric , PERRLA/EOMI , loss of hair due to chemo tx ENT-moist oral mucosa , poor dentition Neck-trachea midline, no thyromegaly Lungs-breath sound diminished , minimum rales at base Heart-regular S1/S2 Abdomen-soft, non tender Extremities- no rash Neuro-AAO x3 , no focal neurological deficit , generalized weakness Lab data as noted below. ASSESSMENT & PLAN: ACUTE RESPIRATORY FAILURE improved , on 2 L 02 via nasal canula ( was not on home 02 ) Possible related to ARDS, pulmonary edema-cardiogenic shock / severe sepsis required ICU transfer , Intubation /vent support treated with broad spectrum Abx with IV Rocephin for gram negative bacteremia Day # 10 appreciate input form Edger Liner S/P extubation on 02/05 CTA of chest : IMPRESSION: 1. No evidence of pulmonary embolus. 2. Multifocal ground glass and solid consolidation involving all 5 lobes with an upper lobe predominance, most consistent with multifocal pneumonia. therapeutic Lovenox d/julita ( no evidence of DVT /PE ) changed to Lovenox for DVT PPx MULTILOBAR PNEUMONIA /HCAP : CT chest shows : Multifocal ground glass and solid consolidation involving all 5 lobes with an upper lobe predominance, most consistent with multifocal pneumonia. ID following , d/w Dr Rene due to Hospital Acquired Pneumonia -pt will need broader gram negative coverage recommend Imipenem IV ordered for sputum culture and gram statin will follow ID recommendation for duration of tx Repeat cxray ordered in 2-3 days to assess improvement NON ISCHEMIC CARDIOMYOPATHY /ACUTE CHF WITH RT HEART FAILURE : ECHO on 01/30/17 : EF 65-70% , no regional wall motion abnormality noted /LV systolic function nl repeat ECHO 3 days later on 02/02/17 : severe global hypokinesis with EF 25-30% , LV /RV function severely reduced compared to study on 01/30/17 Mildly Dilated RV chamber /moderate to severe rt ventricular Hypokinesis that spares RV Hickman developed acute respiratory failure , with hypoxia, vol over load required ICU transfer /mechanical ventilation /IV Lasix diuresis not on any diuretics at present renal function improved to baseline repeat ECHO today show normal EF 65 % , resolution of wall motion abnormality Cardiology eval requested possible Takotsubo /stress induced cardiomyopathy - resolved as pt clinically improved , with hemodynamic stability cont Beta fahad for rate control no further cardiac work up needed SEVERE SEPSIS/GRAM NEGATIVE BACTEREMIA /E COLI UTI : Pyelonephritis/bacteremia; Developed ARDS /acute respiratory failure requiring mechanical ventilation , pressor support -ICU transfer Resolved ; extubated on 02/05/17 Blood cultures and Urine culture grew Escherichia coli 01/29/17 repeat Blood culture /urine culture 02/02/17 -no growth appreciate input form Edger Liner and ID Dr Rene pt treated with broad spectrum Abx Rocephin # 10 days ( discontinued on ) pt also received Cefepime # 5 days /Ciprofloxacin # 2 /Vancomycin # 1 Right IJ Central line D/julita on 02/05/17 pt started on IV imipenem for multilobar Pneumonia /hospital acquired ENDOMETRIAL CA : HX of endometrial CA -Pathology : Clear cell variant , localized disease involving the endometrium only no pelvic lymph node involvement CA 125 level elevated > 90 was been followed with [facility] onc Dr García at [facility] pt received Ist cycle of chemo with Paclitaxel and Carboplatin on 12/31/16 also received prophylactic Neulasta on the following day for prophylaxis of febrile neutropenia pt never received 2nd cycle of chemo due to ongoing issues with weakness, N/V , electrolyte imbalance , thrombocytopenia admitted on 01/29/17 with N/V , abdominal pain developed ARDS , respiratory failure , found to have gram negative bacteremia , pyelonephritis urine culture gram negative bacilli E .Coli ( 01/29/17 ) Blood culture gram negative bacilli E.coli ( 01/29/17 ) appreciate input form Heme Onc pt did not had any Chemo tx > 4 weeks due to acute illness prognosis remains poor pt will be followed at Heme Onc office once medically stable /Discharged to D/ w future chemo ANEMIA due to anemia of chronic disease -Malignancy/ chemo tx No clear source of bleeding Pancytopenia secondary to chemotherapy for endometrial cancer s/p 2 units of irradiated PRBC transfusion on 01/30/17 ( hb dropped to 6.4 ) Hb improved ~9 today Heme onc following FACTOR V LEIDEN DEFICIENCY dx in 2013 , 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 was on Coumadin for 1 month Has not been on chronic outpatient anticoagulation Lower extremity duplex negative for DVT started on therapeutic Lovenox 1 mg /kg /daily in ICU on 02/06/17 Unable to get CTA chest to R/O pulmonary embolus secondary to acute kidney failure given hx of Malignancy -will need life long anticoagulation ACUTE RENAL FAILURE /CKD STAGE 3 Renal ultrasound showed no hydronephrosis Resolved Creatinine improved 0.60 DVT PX On Lovenox 1mg/kg SC daily high risk of thromboembolic event due to uterine CA will need life long Lovenox tx CODE STATUS DNR/DNI DISPOSITION pt shows significant functional decline appreciate PT/OT eval will need Rehab d/w Family; willing for referral at [facility] will update CM Medicine follow up with Dr Holland Heme /Onc follow up with Dr García Consultants: Edger Liner Hem/Oncology Infectious dx Vital Signs: Date Time Temp Pulse Resp B/P (MAP) Pulse Ox O2 Delivery O2 Flow Rate FiO2 02/11/17 16:04 37.4 79 18 128/77 (94) 98 Nasal Cannula 2.0 02/11/17 16:00 Nasal Cannula 2.0 02/11/17 12:00 Nasal Cannula 2.0 02/11/17 12:00 37.0 81 20 156/94 (114) 97 Nasal Cannula 2.0 02/11/17 08:00 Nasal Cannula 2.0 02/11/17 08:00 36.4 86 20 131/82 (98) 96 Nasal Cannula 2.0 02/11/17 04:00 Nasal Cannula 2.0 02/11/17 03:04 36.8 87 22 145/91 (109) 97 Nasal Cannula 2.0 02/11/17 00:01 Nasal Cannula 2.0 02/10/17 22:54 37.0 84 20 122/82 (95) 95 Nasal Cannula 2.0 02/10/17 20:06 Nasal Cannula 2.0 02/10/17 19:43 36.8 85 20 152/88 (109) 99 Nasal Cannula 2.0 Lab Results: Results Past 24 Hours Test 02/10/17 22:02 02/11/17 05:47 02/11/17 06:05 02/11/17 11:55 Range/Units Bedside Glucose 107 110 116 70-90 mg/dl White Blood Count 6.99 4.8-10.8 K/uL Red Blood Count 2.92 4.2-5.4 M/uL Hemoglobin 8.4 12.0-16.0 g/dL Hematocrit 27.4 37-47 % Mean Corpuscular Volume 93.8 80-100 fL Mean Corpuscular Hemoglobin 28.8 25-34 pg Mean Corpuscular Hemoglobin Concent 30.7 32-36 g/dl RDW Standard Deviation 74.3 36.4-46.3 fL RDW Coefficient of Variation 22.4 11.5-14.5 % Platelet Count 201 130-400 K/uL Mean Platelet Volume 10.8 7.4-10.4 fL Sodium Level 140 136-145 mmol/L Potassium Level 3.5 3.5-5.1 mmol/L Chloride Level 105 98-107 mmol/L Carbon Dioxide Level 29 21-32 mmol/L Anion Gap 6.0 3-11 mmol/L Blood Urea Nitrogen 10 7-18 mg/dl Creatinine 0.45 0.60-1.20 mg/dl Est Creatinine Clear Calc Drug Dose 128.8 ml/min Estimated GFR () 127.1 Estimated GFR (Non- 109.7 BUN/Creatinine Ratio 23.2 10-20 Random Glucose 110 70-99 mg/dl Calcium Level 8.0 8.5-10.1 mg/dl Magnesium Level 2.0 1.8-2.4 mg/dl Test 02/11/17 16:34 02/11/17 18:27 Range/Units Bedside Glucose 113 70-90 mg/dl
[2017-02-11 19:16] VITALS: BP 168/92; PULSE 94; TEMP 36.6; O2SAT 96
[2017-02-11] MEDS: SERTRALINE HCL 100 MG TAB PO SCH (20:37)
[2017-02-11 23:55] VITALS: BP 119/75; PULSE 71; TEMP 36.7; O2SAT 96
[2017-02-12] VITALS (7 sets, daily range): BP systolic 116–144; BP diastolic 70–83; PULSE 60–71; TEMP 36.3–36.8; O2SAT 92–97
[2017-02-12] MEDS: IMIPENEM/CILASTATIN IV 500 MG in DEXTROSE 5% 100ML 100 ML IV SCH ×4 (05:29→23:02)
[2017-02-12] MEDS: LEVOTHYROXINE 100 MCG TAB PO SCH (05:29)
[2017-02-12] MEDS: INSULIN ASPART 100 UNITS/ML 3 ML PEN SC SCH ×4 (07:00→20:29)
[2017-02-12] MEDS: PANTOprazole SOD 40 MG TAB PO SCH (07:47)
[2017-02-12] MEDS: GABAPENTIN 100 MG CAP PO SCH ×3 (07:47→20:31)
[2017-02-12] MEDS: ENOXAPARIN 40 MG/0.4 ML SYR SQ SCH (07:47)
[2017-02-12] MEDS: METOPROLOL SUCC 25MG EXT REL TAB PO SCH (07:47)
[2017-02-12] MEDS: BOOST VANILLA PO SCH ×2 (07:47→21:00)
[2017-02-12] MEDS: CHLORHEXIDINE GLUCONATE 0.12% 480 ML MT SCH (08:07)
--- NOTE | 2017-02-12 10:31 | Cardiology Follow-Up ---
Subjective General Date of Service: Feb 12, 2017. History of Present Illness Patient seen and examined. Chart, medications, and telemetry reviewed. Feeling better. Notes being in better spirits. Denies chest pain. Dyspnea improved. No palpitations. Telemetry: Sinus. No significant atrial or ventricular arrhythmias, bradycardia , or pauses. February 11, 2017 TTE Interpretation Summary ([facility], Dr. Head): The left ventricular cavity is small. There is moderate concentric left ventricular hypertrophy. Ejection Fraction = 60-65%. The right ventricular systolic function is normal. The left atrial size is normal. Right atrial size is normal. No significant valvular pathology Allergies Coded Allergies: No Known Allergies (Verified , 01/29/17) Social History Smoking Status: Never Smoker Hx Tobacco Use In Past Year?: No Hx Alcohol Use - Type And Amou: No Hx Substance Use - Type And Am: No Problem List Medical Problems: (1) Acute renal failure Status: Acute (2) Anemia Status: Acute (3) Femur fracture, left Status: Acute (4) Hypokalemia Status: Acute (5) Hypokalemia Status: Acute (6) Nausea vomiting and diarrhea Status: Acute Physical Exam Vital Signs Last Vital Signs Documentation Date Time Temp Pulse Resp B/P (MAP) Pulse Ox O2 Delivery O2 Flow Rate FiO2 02/12/17 07:31 36.5 67 18 144/81 (102) 97 2.0 02/12/17 04:08 Nasal Cannula 02/05/17 20:00 50 Physical Exam Constitutional: Level of Distress: NAD, chronically ill Psychiatric: Mental Status: active & alert Orientation: to time, to place, to person Memory: recent memory normal, remote memory normal Head: normocephalic, atraumatic Eyes: Pupils: PERRLA Neck: pertinent finding (Normal JVP) Lungs: Respiratory effort: no dyspnea Auscultation: breath sounds normal, no wheezing, no rales/crackles, deminished air movement, decreased breath sounds Cardiovascular: Heart Auscultation: RRR, normal S1, normal S2, no murmurs, no rubs, no gallops Abdomen: Bowel Sounds: normal Extremities: no cyanosis, no edema, no clubbing Neurologic: Cranial Nerves: grossly intact Assessment and Plan Assessment and Plan Stress induced cardiomyopathy (Takotsubo) secondary to the acute illness, resolved. No current evidence of acute decompensated heart failure RECOMMENDATIONS/PLAN: Continue Toprol XL without interruption. Conservative cardiac medical management. Will sign off. Please call if any problems. CARDIOLOGY ATTENDING ADDENDUM: The patient was seen and personally examined. Agree with Mark Francisco PA-C's findings and plans as documented above. Laboratory Results Last 24 Hours Test 02/11/17 11:55 02/11/17 16:34 02/11/17 18:27 02/11/17 20:52 Bedside Glucose 116 mg/dl 113 mg/dl Procalcitonin 0.23 ng/ml Test 02/11/17 21:01 02/12/17 05:58 02/12/17 06:18 Bedside Glucose 195 mg/dl 117 mg/dl Magnesium Level 2.1 mg/dl
--- NOTE | 2017-02-12 13:33 | Pharmacy Progress Note ---
Pharmacy Glycemic Sign Off Nt Date of Service Feb 12, 2017. Assessment & Plan ASSESSMENT: * Pharmacy was consulted by Dr Lugo on 02/02/17 for glycemic control and to write orders per [facility] inpatient glycemic control protocol. * Patient has been requiring no insulin for adequate glycemic control * Last dose of insulin was 3 units on 02/08 * BSGs over the past 24 hours: 110, 116, 113, 195 mg/dl (BSG of 195 shortly after one time dose of Solu-medrol IV) * Do not anticipate further changes in patient status that would quickly deteriorate glycemic control (i.e. patient to be NPO for upcoming procedure, steroids tapering, starting tube feedings, etc). * Please see recommendations for outpatient antidiabetic regimen below. PLAN FOR INPATIENT GLYCEMIC CONTROL: No changes needed to current regimen. * Continue NovoLog per scale ACHS/Q6hrs while NPO * Goal range = 110 - 140 mg/dl * CF = 25 mg/dl/unit * CR = none * Pharmacy is signing off of glycemic consult and will no longer be making adjustments to inpatient regimen. Please feel free to re-consult if needed. Thank you. DISCHARGE RECOMMENDATIONS: * Patient does not have a history of DM per H&P, however A1c of 6.6% indicates a diagnosis of diabetes per ADA guidelines. * Patient received recent dexamethasone as chemo pre-treat (unsure of chemo regimen/frequency). Dexamethasone may have contributing to slightly elevated A1c. Consider re-testing in April.
--- NOTE | 2017-02-12 14:39 | Palliative Care Progress Note ---
Palliative Care Progress Note Date of Service Feb 12, 2017. Subjective Pt evaluation today including: conversation w/ patient, conversation w/ family (daughter, Aby, and ), physical exam, chart review Pain: none PO Intake: tolerating diet -Saw patient today for first time since last Tuesday 02/06. -Much improved from last week as far as mentation and strength. -No further life-threatening events. -Spoke with patient and at bedside. Patient is comfortable, no complaints. -Spoke with daughterAby, on phone. Plan is for patient to go to [facility] for rehab. I explained POLST form and offered to complete one prior to discharge. She will let me know. Review of Systems Constitutional: + weakness (but much improved) ENT: No trouble swallowing Respiratory: No cough, No wheezing, No shortness of breath Cardiac: No chest pain, No edema Abdomen: No pain, No nausea, No vomiting Female : + problem reported (unable to discontinue Kruse catheter) Psychiatric: No anxiety Objective Vital Signs Date Time Temp Pulse Resp B/P (MAP) Pulse Ox O2 Delivery O2 Flow Rate FiO2 02/12/17 12:00 Nasal Cannula 2.0 02/12/17 11:46 36.4 68 18 119/79 (92) 97 2.0 02/12/17 08:00 Nasal Cannula 2.0 02/12/17 07:31 36.5 67 18 144/81 (102) 97 2.0 02/12/17 04:08 Nasal Cannula 2.0 02/12/17 03:38 36.8 60 18 116/70 (85) 96 Nasal Cannula 2.0 Humidified Oxygen 02/12/17 00:01 Nasal Cannula 2.0 02/11/17 23:55 36.7 71 16 119/75 (90) 96 Nasal Cannula 3.0 Humidified Oxygen 02/11/17 20:00 Nasal Cannula 2.0 02/11/17 19:16 36.6 94 18 168/92 (117) 96 Nasal Cannula 2.0 02/11/17 16:04 37.4 79 18 128/77 (94) 98 Nasal Cannula 2.0 02/11/17 16:00 Nasal Cannula 2.0 Physical Exam General Appearance: no apparent distress, + obese ENT: hearing grossly normal Neck: supple, no JVD Respiratory/Chest: lungs clear, no respiratory distress, no accessory muscle use Cardiovascular: regular rate, rhythm, no edema, + normal peripheral pulses Abdomen: normal bowel sounds, non tender, soft (obese abdomen) Neurologic/Psychiatric: alert, normal mood/affect, oriented x 3 Skin: normal color Assessment and Plan Problem list: Altered mental status SOB/PRATER Respiratory failure Pneumonia VAUGHN Electrolyte imbalance Endometrial cancer- localized disease per notes Neutropenia- resolved Anemia Goals of care (Z51.5) Palliative care recs: -Patient remains a level 5/DNR. -Was given advance directive paperwork and I explained a POLST form to patient and daughter, Aby. Patient would like some time to discuss with her daughters and will get back to me about the POLST. She will get a hold of patient rep for adv dir. -Patient will follow up outpatient with Dr. García to decide about further treatment for endometrial/uterine cancer. -Plan is for patient to go to [facility] for rehab. Thank you again for this consult. I will follow peripherally until discharge unless I am contacted by patient/daughters to fill out POLST. Please contact me with any further needs. Discharge planning: nursing home facility
--- NOTE | 2017-02-12 17:25 | Infectious Disease Progress Nt ---
Progress Note Date of Service Feb 12, 2017. Subjective Pt evaluation today including: conversation w/ patient, physical exam, chart review, lab review, review of studies, conversation w/ senior solutions workflow consultant, review of inpatient medication list Recent events reviewed. Patient appears comfortable, no increase in shortness of breath or cough. Cultures remain negative to date. Procalcitonin low. No fever. All Other Systems: Reviewed and Negative Medications Current Inpatient Medications Medications (Trade) Dose Ordered Sig/Alek Route Start Time Stop Time Status Last Admin Dose Admin Prochlorperazine Edisylate 5 mg/ Syringe 5 ml @ 5 mls/min Q6H PRN IV 01/29/17 13:00 02/28/17 12:59 02/08/17 05:51 5 MLS/MIN Levothyroxine Sodium (Synthroid Tab) 100 mcg DAILYBB PO 01/30/17 06:00 03/01/17 05:59 02/12/17 05:29 100 MCG Lorazepam (Ativan Tab) 0.5 mg BID PRN PO 01/29/17 13:15 02/28/17 13:14 02/01/17 04:12 0.5 MG Sertraline HCl (Zoloft Tab) 200 mg HS PO 01/29/17 21:00 02/28/17 20:59 02/11/17 20:37 200 MG Tramadol HCl (Ultram Tab) 50 mg Q6H PRN PO 01/29/17 13:15 02/28/17 13:14 02/11/17 09:43 50 MG Gabapentin (Neurontin Cap) 200 mg TID PO 01/30/17 09:00 02/28/17 13:59 02/12/17 14:31 200 MG Chlorhexidine Gluconate (Peridex Oral Soln) 15 ml DAILY MT 02/02/17 09:00 03/04/17 08:59 02/10/17 08:41 15 ML Glucose (Glucose 40% Gel) UD PRN PO 02/02/17 15:15 03/04/17 15:14 Glucose (Glucose Chew Tab) 1 tabs UD PRN PO 02/02/17 15:15 03/04/17 15:14 Dextrose (Dextrose 50% 50ML Syringe) 50 ml UD PRN IV 02/02/17 15:15 03/04/17 15:14 02/03/17 09:09 50 ML Glucagon (Glucagon Inj) 1 mg UD PRN SQ 02/02/17 15:15 03/04/17 15:14 Acetaminophen (Tylenol Soln) 650 mg Q4H PRN PO 02/02/17 19:00 03/04/17 18:59 02/06/17 08:03 650 MG Insulin Aspart (novoLOG ASPART) SLIDING SCALE ACHS SC 02/06/17 16:00 03/08/17 15:59 Future hold 02/08/17 12:55 3 UNITS Pantoprazole Sodium (Protonix Tab) 40 mg QAM PO 02/07/17 09:00 03/09/17 08:59 02/12/17 07:47 40 MG Enteral Nutritional Formula (Boost) 1 can BID PO 02/10/17 21:00 03/12/17 20:59 02/12/17 07:47 1 CAN Methylcellulose (Citrucel Powder) 1 gm BID PRN PO 02/11/17 09:00 03/06/17 20:59 Acetaminophen (Tylenol Tab) 650 mg Q4H PRN PO 02/10/17 23:00 03/12/17 22:59 Metoprolol Succinate (Toprol Xl Tab) 25 mg QAM PO 02/10/17 22:49 03/12/17 22:48 02/12/17 07:47 25 MG Ioversol (Optiray 320) 100 ml UD PRN IV 02/11/17 07:15 02/15/17 07:14 Imipenem/ Cilastatin Sodium 500 mg/Dextrose 110 ml @ 100 mls/hr Q6H IV 02/11/17 11:00 02/18/17 10:59 02/12/17 11:31 100 MLS/HR Enoxaparin Sodium (Lovenox Inj) 40 mg Q24H SQ 02/12/17 09:00 03/14/17 08:59 02/12/17 07:47 40 MG Objective Vital Signs Date Time Temp Pulse Resp B/P (MAP) Pulse Ox O2 Delivery O2 Flow Rate FiO2 02/12/17 16:04 36.5 68 18 136/78 (97) 96 Nasal Cannula 2.0 02/12/17 16:00 Nasal Cannula 2.0 02/12/17 12:00 Nasal Cannula 2.0 02/12/17 11:46 36.4 68 18 119/79 (92) 97 2.0 02/12/17 08:00 Nasal Cannula 2.0 02/12/17 07:31 36.5 67 18 144/81 (102) 97 2.0 02/12/17 04:08 Nasal Cannula 2.0 02/12/17 03:38 36.8 60 18 116/70 (85) 96 Nasal Cannula 2.0 Humidified Oxygen 02/12/17 00:01 Nasal Cannula 2.0 02/11/17 23:55 36.7 71 16 119/75 (90) 96 Nasal Cannula 3.0 Humidified Oxygen 02/11/17 20:00 Nasal Cannula 2.0 02/11/17 19:16 36.6 94 18 168/92 (117) 96 Nasal Cannula 2.0 Laboratory Results RUN DATE: 02/07/17 [facility] LAB PAGE 1 RUN TIME: 701 Specimen Inquiry PATIENT: TACOS AGUILERA [place] LOC: [place] U # : [id number] AGE/SX: 61/F ROOM: E106 REG : 01/29/[address]: Servando Samuels M.D. : 1955 BED: 1 DIS : STATUS: ADM IN TLOC: SPEC #: [id number] DANYEL: 02/02/17 STATUS: SANGEETA REQ #: [id number] RECD: 02/02/[address] [facility] [address]: Gray Rust M.D. SOURCE: BLOOD ENTR: 02/02/[address] [facility] [address]: Herman Rene MD SPDESC: Linette Quiñonez MD Haroon, Salman A., Pablo Ott D.ODarius Reina, Aleksander.OHawk Lee MD ORDERED: BLOOD CULTURE Procedure Result Verified Site BLD CULT Final 02/07/17-700 NO GROWTH Last 24 Hours Test 02/11/17 18:27 02/11/17 20:52 02/11/17 21:01 02/12/17 05:58 Procalcitonin 0.23 ng/ml Bedside Glucose 195 mg/dl Magnesium Level 2.1 mg/dl Test 02/12/17 06:18 02/12/17 11:30 Bedside Glucose 117 mg/dl 110 mg/dl Patient Name: TACOS AGUILERA Unit Number: [id number] Dictated: 02/11/17921 Transcribed: 02/11/17921 PBS Printed Date/Time: [~ rep prt dt]/[~ rep prt tm] [~ rep ct labl] - [~ rep ct ivnm] [facility] Radiology Department [place] [id number] Dictated: 02/11/17921 Transcribed: 02/11/17921 PBS Printed Date/Time: [~ rep prt dt]/[~ rep prt tm] [~ rep ct labl] - [~ rep ct ivnm] [~ rep ct add3]] (CHEST FOR PE) ANGIO WITH CLINICAL HISTORY: 61 years-old Female presenting with ^hypoxia /SOB /ECHO RV STRAIN EVALUATION FOR PE. TECHNIQUE: Multidetector CT angiography of the chest was performed after administration of intravenous contrast. 3-D volumetric and/or maximum intensity projection (MIP) images were subsequently reconstructed for review. IV contrast: 93 mL of Optiray 320. A dose lowering technique was used consistent with the principles of ALARA (as low as reasonably achievable). COMPARISON: Chest x-ray performed on 02/05/2017. CT DOSE (mGy.cm): The estimated cumulative dose is 517.20 mGy.cm. FINDINGS: Android Ui Developer topogram: Low lung volumes. Interval extubation. Right internal jugular Mediport terminates at the confluence of the right subclavian and right internal jugular veins. Interval removal of the nasogastric tube. Interval removal of the left IJ central venous catheter. Pulmonary vasculature: The study is adequate for assessment of the pulmonary vascular tree. No filling defect within the pulmonary arteries to suggest embolus. Main pulmonary artery is top normal in size. No flattening of the interventricular septum. No intracardiac intracardiac filling defect. No reflux of contrast into the hepatic veins. Remaining chest: On soft tissue windows, normal thyroid and thoracic inlet. No axillary, supraclavicular, hilar, or mediastinal lymphadenopathy. Atherosclerosis of the aorta. Mild multichamber enlargement of the heart. Mild coronary artery calcification. Small pericardial effusion. Small bilateral pleural effusions. Nodular contour of the liver. Cholecystectomy clips. Postsurgical changes of gastric sleeve procedure. On lung windows, patchy groundglass and more solid consolidation most prominently at the apices but involving all 5 lobes. This has both a peribronchovascular and peripheral distribution. Airways patent. On bone windows, normal osseous structures. IMPRESSION: 1. No evidence of pulmonary embolus. 2. Multifocal groundglass and solid consolidation involving all 5 lobes with an upper lobe predominance, most consistent with multifocal pneumonia. 3. Mild cardiomegaly. 4. Nodular liver contour could underlying fibrosis/cirrhosis. Electronically signed by: Devaughn Ozuna M.D. 02/11/2017 9:30 AM Dictated Date/Time: 02/11/2017 9:22 AM The status of this report is Signed. Draft = Not yet reviewed or approved by Radiologist. Signed = Reviewed and approved by Radiologist. <AttendingPhy>Joan Cotto M.D.</AttendingPhy> <FamilyPhy>Pablo Holland D.OCedric</FamilyPhy> <PrimaryPhy>Pablo Holland D.OCedric</PrimaryPhy> <UnitNumber> [id number]</UnitNumber> <VisitNumber>[id number]</VisitNumber> <PatientName> TACOS AGUILERA</PatientName> <DateOfBirth>1955</DateOfBirth> <Location>C.2T< /Location> <ServiceDate>01/29/17</ServiceDate> <MNE>ESINDI</MNE> <OrderingPhy> Joan Cotto MD</OrderingPhy> <OrderingPhyMNE>f rep ord dr powers</ OrderingPhyMNE> <DictatingPhyMNE>f rep dict dr powers</DictatingPhyMNE> <CCListMNE> f rep ct priya</CCListMNE> <AdmittingPhyMNE>f pt admit dr powers</AdmittingPhyMNE> < AttendingPhyMNE>f pt attend dr powers</AttendingPhyMNE> <ConsultingPhyMNE>f pt consult dr powers</ConsultingPhyMNE> <FamilyPhyMNE>f pt fam dr powers</FamilyPhyMNE> <OtherPhyMNE>f pt other dr powers</OtherPhyMNE> < PrimaryPhyMNE>f pt prim care dr powers</PrimaryPhyMNE> <ReferringPhyMNE>f pt referring dr powers</ReferringPhyMNE> Assessment and Plan 61-year-old female with E coli sepsis and septic shock, with evidence of pyelonephritis with respiratory failure requiring intubation now status post extubation, with negative follow-up blood cultures. Chest CT shows extensive bilateral ground-glass infiltration, not clear whether this represents new infectious process or development of ARDS related to previous septic shock. Low procalcitonin level is encouraging, and hopefully can discontinue IV antibiotics in the near future. Would recommend follow-up chest x-ray. Will follow.
--- NOTE | 2017-02-12 19:25 | Progress Note ---
Internal Med Progress Note Date of Service: Feb 12, 2017. Provider Documentation: SUBJECTIVE: feels much better appetite remains poor no complain of SOB , has non productive cough no fever or chills OBJECTIVE: Vital Signs-as noted below Exam: General-elderly female , no apparent distress Eyes-sclera non icteric , PERRLA/EOMI , loss of hair due to chemo tx ENT-moist oral mucosa , poor dentition Neck-trachea midline, no thyromegaly Lungs-breath sound diminished , minimum rales at base Heart-regular S1/S2 Abdomen-soft, non tender Extremities- no rash Neuro-AAO x3 , no focal neurological deficit , generalized weakness Lab data as noted below. ASSESSMENT & PLAN: ACUTE RESPIRATORY FAILURE improved , on 2 L 02 via nasal canula ( was not on home 02 ) Possible related to ARDS, pulmonary edema-cardiogenic shock / severe sepsis required ICU transfer , Intubation /vent support treated with broad spectrum Abx with IV Rocephin for gram negative bacteremia Day # 10 appreciate input form Senior Storage Administrator S/P extubation on 02/05 CTA of chest : IMPRESSION: 1. No evidence of pulmonary embolus. 2. Multifocal ground glass and solid consolidation involving all 5 lobes with an upper lobe predominance, most consistent with multifocal pneumonia. therapeutic Lovenox d/julita ( no evidence of DVT /PE ) changed to Lovenox for DVT PPx MULTILOBAR PNEUMONIA /HCAP : CT chest shows : Multifocal ground glass and solid consolidation involving all 5 lobes with an upper lobe predominance, most consistent with multifocal pneumonia. ID following , d/w Dr Rene due to Hospital Acquired Pneumonia -pt will need broader gram negative coverage recommend Imipenem IV ordered for sputum culture and gram statin will follow ID recommendation for duration of tx Repeat cxray ordered in 2 days to assess improvement NON ISCHEMIC CARDIOMYOPATHY /ACUTE CHF WITH RT HEART FAILURE : ECHO on 01/30/17 : EF 65-70% , no regional wall motion abnormality noted /LV systolic function nl repeat ECHO 3 days later on 02/02/17 : severe global hypokinesis with EF 25-30% , LV /RV function severely reduced compared to study on 01/30/17 Mildly Dilated RV chamber /moderate to severe rt ventricular Hypokinesis that spares RV [place] developed acute respiratory failure , with hypoxia, vol over load required ICU transfer /mechanical ventilation /IV Lasix diuresis not on any diuretics at present renal function improved to baseline repeat ECHO shows normal EF 65 % , resolution of wall motion abnormality Cardiology eval requested possible Takotsubo /stress induced cardiomyopathy - resolved as pt clinically improved , with hemodynamic stability cont Beta fahad for rate control no further cardiac work up needed SEVERE SEPSIS/GRAM NEGATIVE BACTEREMIA /E COLI UTI : Pyelonephritis/bacteremia; Developed ARDS /acute respiratory failure requiring mechanical ventilation , pressor support -ICU transfer Resolved ; extubated on 02/05/17 Blood cultures and Urine culture grew Escherichia coli 01/29/17 repeat Blood culture /urine culture 02/02/17 -no growth appreciate input form Senior Storage Administrator and ID Dr Rene pt treated with broad spectrum Abx Rocephin # 10 days ( discontinued on ) pt also received Cefepime # 5 days /Ciprofloxacin # 2 /Vancomycin # 1 Right IJ Central line D/julita on 02/05/17 pt started on IV imipenem for multilobar Pneumonia /hospital acquired ENDOMETRIAL CA : HX of endometrial CA -Pathology : Clear cell variant , localized disease involving the endometrium only no pelvic lymph node involvement CA 125 level elevated > 90 was been followed with Heme onc Dr García at [facility] pt received Ist cycle of chemo with Paclitaxel and Carboplatin on 12/31/16 also received prophylactic Neulasta on the following day for prophylaxis of febrile neutropenia pt never received 2nd cycle of chemo due to ongoing issues with weakness, N/V , electrolyte imbalance , thrombocytopenia admitted on 01/29/17 with N/V , abdominal pain developed ARDS , respiratory failure , found to have gram negative bacteremia , pyelonephritis urine culture gram negative bacilli E .Coli ( 01/29/17 ) Blood culture gram negative bacilli E.coli ( 01/29/17 ) appreciate input form Heme Onc pt did not had any Chemo tx > 4 weeks due to acute illness prognosis remains poor pt will be followed at Heme Onc office once medically stable /Discharged to D/ w future chemo ANEMIA due to anemia of chronic disease -Malignancy/ chemo tx No clear source of bleeding Pancytopenia secondary to chemotherapy for endometrial cancer s/p 2 units of irradiated PRBC transfusion on 01/30/17 ( hb dropped to 6.4 ) Hb improved , remains stable Heme onc following FA[facility] V [facility] DEFICIENCY dx in 2013 , 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 was on Coumadin for 1 month Has not been on chronic outpatient anticoagulation Lower extremity duplex negative for DVT started on therapeutic Lovenox 1 mg /kg /daily in ICU on 02/06/17 CTA chest shows no evidence of PE Lower ext Doppler no DVT therapeutic Lovenox D/julita -risk of bleeding on anticoagulation out weights benefit ACUTE RENAL FAILURE /CKD STAGE 3 Renal ultrasound showed no hydronephrosis Resolved Creatinine improved 0.60 DVT PX Lovenox changed to prophylaxis dose as no evidence of PEor DVT noted will not need termite treater helper anticoagulation CODE STATUS DNR/DNI DISPOSITION pt shows significant functional decline appreciate PT/OT eval will need Rehab d/w Family; willing for referral at [facility] pt will be transferred to [facility] in 1-2 days if remains stable medically Medicine follow up with Dr Holland Heme /Onc follow up with Dr García Consultants: Senior Storage Administrator Hem/Oncology Infectious dx Vital Signs: Date Time Temp Pulse Resp B/P (MAP) Pulse Ox O2 Delivery O2 Flow Rate FiO2 02/13/17 14:56 36.6 75 18 127/86 (100) 91 Room Air 02/13/17 08:15 92 Room Air 50 02/13/17 07:18 36.9 68 18 156/92 (113) 92 Room Air 02/12/17 23:52 36.6 70 18 123/83 (96) 92 Room Air 02/12/17 19:17 36.3 71 20 116/75 (89) 97 Room Air 02/12/17 19:00 Nasal Cannula 2.0 Lab Results: Results Past 24 Hours Test 02/12/17 20:02 02/13/17 07:15 02/13/17 08:24 02/13/17 11:31 Range/Units Bedside Glucose 112 97 116 70-90 mg/dl Magnesium Level 2.0 1.8-2.4 mg/dl Test 02/13/17 16:39 Range/Units Bedside Glucose 92 70-90 mg/dl
[2017-02-12] MEDS: SERTRALINE HCL 100 MG TAB PO SCH (20:31)
[2017-02-13] MEDS: LEVOTHYROXINE 100 MCG TAB PO SCH (05:47)
[2017-02-13] MEDS: IMIPENEM/CILASTATIN IV 500 MG in DEXTROSE 5% 100ML 100 ML IV SCH ×3 (05:47→17:22)
[2017-02-13 07:18] VITALS: BP 156/92; PULSE 68; TEMP 36.9; O2SAT 92
--- NOTE | 2017-02-13 07:40 | DIAGNOSTIC IMAGING REPORT ---
SINGLE VIEW CHEST CLINICAL HISTORY: Pneumonia. FINDINGS: An AP, portable, upright chest radiograph is compared to study dated 02/05/2017 and correlated with chest CT dated 02/11/2017. The examination is degraded by portable technique and patient rotation. Endotracheal and enteric tubes of the removed. A right internal jugular central venous infusion port is unchanged in position. The heart is enlarged. There is mild pulmonary vascular congestion. There are low lung volumes. Patchy airspace consolidation is again seen in the right upper lobe. Less confluent opacities are present in the left mid to lower lung. Small pleural effusions are identified. No pneumothorax is seen. The skeletal structures are osteopenic. The bony thorax is grossly intact. Cholecystectomy clips are seen in the right upper quadrant. IMPRESSION: 1. The endotracheal and enteric tubes have been removed. 2. Cardiomegaly with mild pulmonary vascular congestion. 3. Low lung volumes. 4. Airspace consolidation the right upper lobe as well as airspace opacities in the left lung are similar to previous. 5. Small pleural effusions. Electronically signed by: Don Torres M.D. 02/13/2017 7:39 AM Dictated Date/Time: 02/13/2017 7:37 AM
[2017-02-13] MEDS: CHLORHEXIDINE GLUCONATE 0.12% 480 ML MT SCH (08:00)
[2017-02-13 08:15] VITALS: O2SAT 92
[2017-02-13] MEDS: INSULIN ASPART 100 UNITS/ML 3 ML PEN SC SCH ×4 (08:24→21:14)
[2017-02-13] MEDS: BOOST VANILLA PO SCH ×2 (08:24→19:50)
[2017-02-13] MEDS: GABAPENTIN 100 MG CAP PO SCH ×3 (08:24→20:36)
[2017-02-13] MEDS: PANTOprazole SOD 40 MG TAB PO SCH (08:25)
[2017-02-13] MEDS: ENOXAPARIN 40 MG/0.4 ML SYR SQ SCH (08:25)
[2017-02-13] MEDS: METOPROLOL SUCC 25MG EXT REL TAB PO SCH (08:25)
[2017-02-13 14:56] VITALS: BP 127/86; PULSE 75; TEMP 36.6; O2SAT 91
[2017-02-13] MEDS: ZINC SULFATE 220 MG CAP PO SCH (17:23)
[2017-02-13] MEDS: DRONABINOL 2.5 MG CAP PO SCH (17:40)
[2017-02-13] MEDS ORDERED: [UNRECOGNIZED DRUG - CODE] PO (18:55)
[2017-02-13] MEDS ORDERED: TRAM-10 PO (18:55)
[2017-02-13] MEDS ORDERED: LORA-741 PO (18:55)
[2017-02-13] MEDS ORDERED: TRAZ100T29 PO (18:55)
[2017-02-13] MEDS ORDERED: ZNCS220 PO (18:55)
[2017-02-13] MEDS ORDERED: DRON2.5C10 PO (18:55)
[2017-02-13] MEDS ORDERED: LEVO-459 PO (18:58)
[2017-02-13] MEDS: PROCHLORPERAZINE INJ 5 MG in SYRINGE 4 ML IV PRN (19:17)
[2017-02-13] MEDS: SERTRALINE HCL 100 MG TAB PO SCH (21:14)
--- NOTE | 2017-02-13 22:22 | Progress Note ---
Internal Med Progress Note Date of Service: Feb 13, 2017. Provider Documentation: SUBJECTIVE: complains of poor appetite OBJECTIVE: Vital Signs-as noted below Exam: General-elderly female , no apparent distress Eyes-sclera non icteric , PERRLA/EOMI , loss of hair due to chemo tx ENT-moist oral mucosa , poor dentition Neck-trachea midline, no thyromegaly Lungs-breath sound diminished , minimum rales at base Heart-regular S1/S2 Abdomen-soft, non tender Extremities- no rash Neuro-AAO x3 , no focal neurological deficit , generalized weakness Lab data as noted below. ASSESSMENT & PLAN: ACUTE RESPIRATORY FAILURE improved , on 2 L 02 via nasal canula ( was not on home 02 ) Possible related to ARDS, pulmonary edema-cardiogenic shock / severe sepsis required ICU transfer , Intubation /vent support treated with broad spectrum Abx with IV Rocephin for gram negative bacteremia Day # 10 appreciate input form Drill Presser S/P extubation on 02/05 CTA of chest : IMPRESSION: 1. No evidence of pulmonary embolus. 2. Multifocal ground glass and solid consolidation involving all 5 lobes with an upper lobe predominance, most consistent with multifocal pneumonia. therapeutic Lovenox d/julita ( no evidence of DVT /PE ) changed to Lovenox for DVT PPx MULTILOBAR PNEUMONIA /HCAP : CT chest shows : Multifocal ground glass and solid consolidation involving all 5 lobes with an upper lobe predominance, most consistent with multifocal pneumonia. ID following , d/w Dr Rene due to Hospital Acquired Pneumonia -pt will need broader gram negative coverage recommend Imipenem IV ordered for sputum culture and gram statin -no growth Abx change to Levaquin -complete 10 days course NON ISCHEMIC CARDIOMYOPATHY /ACUTE CHF WITH RT HEART FAILURE : ECHO on 01/30/17 : EF 65-70% , no regional wall motion abnormality noted /LV systolic function nl repeat ECHO 3 days later on 02/02/17 : severe global hypokinesis with EF 25-30% , LV /RV function severely reduced compared to study on 01/30/17 Mildly Dilated RV chamber /moderate to severe rt ventricular Hypokinesis that spares RV [place] developed acute respiratory failure , with hypoxia, vol over load required ICU transfer /mechanical ventilation /IV Lasix diuresis not on any diuretics at present renal function improved to baseline repeat ECHO shows normal EF 65 % , resolution of wall motion abnormality Cardiology eval requested possible Takotsubo /stress induced cardiomyopathy - resolved as pt clinically improved , with hemodynamic stability cont Beta fahad for rate control no further cardiac work up needed SEVERE SEPSIS/GRAM NEGATIVE BACTEREMIA /E COLI UTI : Pyelonephritis/bacteremia; Developed ARDS /acute respiratory failure requiring mechanical ventilation , pressor support -ICU transfer Resolved ; extubated on 02/05/17 Blood cultures and Urine culture grew Escherichia coli 01/29/17 repeat Blood culture /urine culture 02/02/17 -no growth appreciate input form Drill Presser and ID Dr Rene pt treated with broad spectrum Abx Rocephin # 10 days ( discontinued on ) pt also received Cefepime # 5 days /Ciprofloxacin # 2 /Vancomycin # 1 Right IJ Central line D/julita on 02/05/17 pt started on IV imipenem for multilobar Pneumonia /hospital acquired ENDOMETRIAL CA : HX of endometrial CA -Pathology : Clear cell variant , localized disease involving the endometrium only no pelvic lymph node involvement CA 125 level elevated > 90 was been followed with Heme onc Dr García at [facility] pt received Ist cycle of chemo with Paclitaxel and Carboplatin on 12/31/16 also received prophylactic Neulasta on the following day for prophylaxis of febrile neutropenia pt never received 2nd cycle of chemo due to ongoing issues with weakness, N/V , electrolyte imbalance , thrombocytopenia admitted on 01/29/17 with N/V , abdominal pain developed ARDS , respiratory failure , found to have gram negative bacteremia , pyelonephritis urine culture gram negative bacilli E .Coli ( 01/29/17 ) Blood culture gram negative bacilli E.coli ( 01/29/17 ) appreciate input form Heme Onc pt did not had any Chemo tx > 4 weeks due to acute illness prognosis remains poor pt will be followed at Heme Onc office once medically stable /Discharged to D/ w future chemo ANEMIA due to anemia of chronic disease -Malignancy/ chemo tx No clear source of bleeding Pancytopenia secondary to chemotherapy for endometrial cancer s/p 2 units of irradiated PRBC transfusion on 01/30/17 ( hb dropped to 6.4 ) Hb improved , remains stable Heme onc following FACTOR V LEIDEN DEFICIENCY dx in 2013 , 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 was on Coumadin for 1 month Has not been on chronic outpatient anticoagulation Lower extremity duplex negative for DVT started on therapeutic Lovenox 1 mg /kg /daily in ICU on 02/06/17 CTA chest shows no evidence of PE Lower ext Doppler no DVT therapeutic Lovenox D/julita -risk of bleeding on anticoagulation out weights benefit ACUTE RENAL FAILURE /CKD STAGE 3 Renal ultrasound showed no hydronephrosis Resolved Creatinine improved 0.60 DVT PX Lovenox changed to prophylaxis dose as no evidence of PEor DVT noted will not need longterm anticoagulation CODE STATUS DNR/DNI DISPOSITION pt shows significant functional decline appreciate PT/OT eval will need Rehab d/w Family; referral [facility] accepted stable to be transferred to [facility] tomorrow Consultants: Drill Presser Hem/Oncology Infectious dx Vital Signs: Date Time Temp Pulse Resp B/P (MAP) Pulse Ox O2 Delivery O2 Flow Rate FiO2 02/13/17 16:00 Room Air 02/13/17 14:56 36.6 75 18 127/86 (100) 91 Room Air 02/13/17 08:15 92 Room Air 50 02/13/17 07:18 36.9 68 18 156/92 (113) 92 Room Air 02/12/17 23:52 36.6 70 18 123/83 (96) 92 Room Air Lab Results: Results Past 24 Hours Test 02/13/17 07:15 02/13/17 08:24 02/13/17 11:31 02/13/17 16:39 Range/Units Magnesium Level 2.0 1.8-2.4 mg/dl Bedside Glucose 97 116 92 70-90 mg/dl
--- NOTE | 2017-02-13 22:23 | Discharge Instructions ---
Discharge Instructions Date of Service Feb 13, 2017. Admission Reason for Admission: Juan, Hypokalemia Discharge Discharge Diagnosis / Problem: RESPIRATORY FAILURE /SEVERE SEPSIS /BILATERAL PNEUMONIA Discharge Goals Goal(s): Decrease discomfort, Improve function, Increase independence, Improve disease control, Diagnostic testing, Therapeutic intervention Activity Recommendations Activity Level: Assistance Required Therapies: Physical Therapy, Occupational Therapy . Additional Information Patient informed of condition: Yes Advance Directives: Yes DNR: Yes Level of Care: Skilled Communicable Disease: No Prognosis: Stable Kruse Catheter: No Instructions / Follow-Up Instructions / Follow-Up FOLLOW UP WITH FAMILY PHYSICIAN AFTER DISCHARGE FORM REHAB Current Hospital Diet Patient's current hospital diet: Regular Diet Discharge Diet Recommended Diet: Regular Diet Pending Studies Studies pending at discharge: no Laboratory Results Hemoglobin A1c Test 02/03/17 04:03 Range/Units Estimated Average Glucose 143 mg/dl Hemoglobin A1c 6.6 H 4.5-5.6 % Medical Emergencies . Who to Call and When: Medical Emergencies: If at any time you feel your situation is an emergency, please call 911 immediately. . Non-Emergent Contact Non-Emergency issues call your: Primary Care Provider . . "Provider Documentation" section prepared by Joan Cotto. . Core Measure Problem Core Measures: None
--- NOTE | 2017-02-13 23:12 | Progress Note ---
Progress Note Date of Service Feb 13, 2017. Progress Note ATTENDING NOTE : SPOKE WITH daughter Aby updated that pt can go to [facility] family requests for Transport arrangement will update AGNES Badillo ( phone # [phone]) wants update when pt is being transported Pt's wants to meet pt at [facility] -as she arrives
[2017-02-13 23:57] VITALS: BP 127/80; PULSE 72; TEMP 37; O2SAT 95
[2017-02-14] MEDS: LEVOTHYROXINE 100 MCG TAB PO SCH (06:08)
--- NOTE | 2017-02-14 07:14 | DIAGNOSTIC IMAGING REPORT ---
CHEST ONE VIEW PORTABLE CLINICAL HISTORY: 61 years-old Female presenting with pneumonia . TECHNIQUE: Portable upright AP view of the chest was obtained. COMPARISON: 02/13/2017. FINDINGS: Right internal jugular Mediport remains in place. Cardiac silhouette moderately enlarged, unchanged. Persistent patchy reticular nodular bilateral opacities with an upper lobe predominance. Trace left pleural effusion may be present. No pneumothorax. Osseous structures normal. Cholecystectomy clips noted. IMPRESSION: 1. Unchanged patchy upper lobe predominant pulmonary opacities consistent with multifocal pneumonia. 2. Trace left pleural effusion. 3. Cardiomegaly. Electronically signed by: Devaughn Ozuna M.D. 02/14/2017 7:13 AM Dictated Date/Time: 02/14/2017 7:11 AM
[2017-02-14 07:26] VITALS: BP 155/87; PULSE 78; TEMP 36.8; O2SAT 94
[2017-02-14] MEDS: CHLORHEXIDINE GLUCONATE 0.12% 480 ML MT SCH (08:00)
[2017-02-14] MEDS ORDERED: BOOST VANILLA PO SCH ×2 (08:00→19:00)
[2017-02-14] MEDS: INSULIN ASPART 100 UNITS/ML 3 ML PEN SC SCH ×3 (08:14→15:59)
[2017-02-14] MEDS: DRONABINOL 2.5 MG CAP PO SCH ×3 (08:14→16:32)
[2017-02-14] MEDS: METOPROLOL SUCC 25MG EXT REL TAB PO SCH (08:16)
[2017-02-14] MEDS: PANTOprazole SOD 40 MG TAB PO SCH (08:16)
[2017-02-14] MEDS: ZINC SULFATE 220 MG CAP PO SCH (08:17)
[2017-02-14] MEDS: GABAPENTIN 100 MG CAP PO SCH ×2 (08:17→13:20)
[2017-02-14] MEDS: ENOXAPARIN 40 MG/0.4 ML SYR SQ SCH (08:18)
[2017-02-14] MEDS ORDERED: LEVOFLOXACIN 500 MG TAB PO SCH (11:00)
[2017-02-14 11:27] VITALS: BP 137/87; PULSE 80; TEMP 36.5; O2SAT 96
--- NOTE | 2017-02-14 14:58 | Progress Note ---
Internal Med Progress Note Date of Service: Feb 14, 2017. Provider Documentation: SUBJECTIVE: resting comfortably afebrile eating better no sob no cough no chest pain moving bowels ok ok for [facility] today OBJECTIVE: Vital Signs-as noted below Exam: General-alert and oriented. Not in distress ENT-Normal hearing Neck-no neck masses supple Lungs-cta b/l no wheezing no crackles Heart-S1 and S2 heard regular rate and rthym, no murmurs Abdomen-Soft bowel sounds present non tender no distension Extremities-no edema no erythema Neuro-alert and awake moves extremities Lab data as noted below. ASSESSMENT & PLAN: 61F admitted for generalized weakness found to have septic shock from pyelonephritis. e.coli bacteremia and later developed acute resp failure from CHF, Pneumonia requiring intubation. Currently improved and plan to [facility]. As per : ACUTE RESPIRATORY FAILURE Multifocal Pneumonia-HCAP Possible ARDS cardiogenic shock from Takotsubo /stress induced cardiomyopathy severe sepsis from e.coli bacteremia required mechanical ventilation Received Rocephin, imipenem and currently on levaquin to complete the course appreciate critical care and ID inputs NON ISCHEMIC CARDIOMYOPATHY /ACUTE CHF WITH RT HEART FAILURE : ECHO on 01/30/17 : EF 65-70% , no regional wall motion abnormality noted /LV systolic function nl . repeat ECHO 3 days later on 02/02/17 : severe global hypokinesis with EF 25-30% , LV /RV function severely reduced compared to study on 01/30/17 Mildly Dilated RV chamber /moderate to severe rt ventricular Hypokinesis that spares RV [place] . developed acute respiratory failure , with hypoxia, vol over load required ICU transfer /mechanical ventilation /IV Lasix diuresis Renal function improved to baseline . repeat ECHO on 02/11/17 shows normal EF 65 % , resolution of wall motion abnormality . Seen by Cardiology : possible Takotsubo /stress induced cardiomyopathy - resolved as pt clinically improved , with hemodynamic stability cont Beta fahad for rate control no further cardiac work up needed currently on diuretics SEVERE SEPSIS/GRAM NEGATIVE BACTEREMIA /E COLI UTI : Pyelonephritis/bacteremia; Developed ARDS /acute respiratory failure requiring mechanical ventilation , pressor support -ICU transfer Resolved ; extubated on 02/05/17 Blood cultures and Urine culture grew Escherichia coli 01/29/17 repeat Blood culture /urine culture 02/02/17 -no growth appreciate input form [employer] and ID Dr Rene pt treated with broad spectrum Abx Rocephin # 10 days ( discontinued on ) pt also received Cefepime # 5 days /Ciprofloxacin # 2 /Vancomycin # 1 Right IJ Central line D/julita on 02/05/17 . pt started on IV imipenem for multilobar Pneumonia /hospital acquired which is changed to Levaquin to complete the course ENDOMETRIAL CA : HX of endometrial CA -Pathology : Clear cell variant , localized disease involving the endometrium only no pelvic lymph node involvement CA 125 level elevated > 90 was been followed with Heme onc Dr García at [facility] pt received Ist cycle of chemo with Paclitaxel and Carboplatin on 12/31/16 also received prophylactic Neulasta on the following day for prophylaxis of febrile neutropenia pt never received 2nd cycle of chemo due to ongoing issues with weakness, N/V , electrolyte imbalance , thrombocytopenia admitted on 01/29/17 with N/V , abdominal pain developed ARDS , respiratory failure , found to have gram negative bacteremia , pyelonephritis urine culture gram negative bacilli E .Coli ( 01/29/17 ) Blood culture gram negative bacilli E.coli ( 01/29/17 ) appreciate input form Heme Onc pt did not had any Chemo tx > 4 weeks due to acute illness prognosis remains poor pt will be followed at Heme Onc office once medically stable /Discharged to D/ w future chemo ANEMIA due to anemia of chronic disease -Malignancy/ chemo tx No clear source of bleeding Pancytopenia secondary to chemotherapy for endometrial cancer s/p 2 units of irradiated PRBC transfusion on 01/30/17 ( hb dropped to 6.4 ) Hb improved , remains stable Heme onc following FACTOR V LEIDEN DEFICIENCY dx in 2013 , 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 was on Coumadin for 1 month Has not been on chronic outpatient anticoagulation Lower extremity duplex negative for DVT started on therapeutic Lovenox 1 mg /kg /daily in ICU on 02/06/17 CTA chest shows no evidence of PE Lower ext Doppler no DVT therapeutic Lovenox D/julita -risk of bleeding on anticoagulation out weights benefit ACUTE RENAL FAILURE /CKD STAGE 3 Renal ultrasound showed no hydronephrosis Resolved Creatinine improved 0.60 DVT PX Lovenox changed to prophylaxis dose as no evidence of PEor DVT noted 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 CODE STATUS DNR/DNI DISPOSITION pt shows significant functional decline appreciate PT/OT eval d/w Family; referral at [facility] accepted stable to be transferred to [facility] today Vital Signs: Date Time Temp Pulse Resp B/P (MAP) Pulse Ox O2 Delivery O2 Flow Rate FiO2 02/14/17 11:27 36.5 80 16 137/87 (104) 96 02/14/17 08:00 Room Air 02/14/17 07:26 36.8 78 16 155/87 (109) 94 Room Air 02/14/17 00:00 Room Air 02/13/17 23:57 37.0 72 18 127/80 (96) 95 Room Air 02/13/17 16:00 Room Air 02/13/17 14:56 36.6 75 18 127/86 (100) 91 Room Air Lab Results: Results Past 24 Hours Test 02/13/17 16:39 02/13/17 20:43 02/14/17 07:34 Range/Units Bedside Glucose 92 119 90 70-90 mg/dl
--- NOTE | 2017-02-14 15:06 | Discharge Summary ---
Discharge Summary Date of Service Feb 14, 2017. Discharge Summary Admission Date: Jan 29, 2017 at 12:16 Discharge Date: Feb 14, 2017 Discharge Disposition: intermediate facility Principal Diagnosis: ACUTE RESP FAILURE ARDS?, pulmonary edema-cardiogenic shock Takotsubo /stress induced cardiomyopathy SEPTIC SHOCK UTI/PYELONEPHRITIS E.COLI BACTEREMIA ARF Secondary Diagnoses/Problems: (1) B12 deficiency Status: Chronic (2) Benign hypertension Status: Chronic (3) Depression Status: Chronic (4) Diabetes mellitus type 2 Status: Chronic (5) Dyslipidemia Status: Chronic (6) Factor V Leiden mutation Status: Chronic (7) Hypothyroidism Status: Chronic (8) Localized, primary osteoarthritis of the lower leg Status: Chronic (9) Nonulcer dyspepsia Status: Chronic (10) Recurrent falls Status: Resolved (11) Total replacement of hip Status: Resolved (12) Urinary tract infection Status: Resolved Procedures: CT ABD/PELVIS: 1. No urinary calculi or hydronephrosis. 2. Moderate right and mild left perinephric infiltration. While nonspecific, right-sided pyelonephritis could have this appearance. No renal abscess identified on unenhanced CT. 3. Fatty infiltration of the liver. 4. Stable biliary ductal dilatation which is likely related to prior cholecystectomy. 5. No bowel obstruction. Normal appendix. CXR: Interval development of multifocal patchy airspace opacities. This may represent pulmonary edema or a developing pneumonia. LOWER EXT BILATERAL VENOUS DOPPLER: No evidence of deep venous thrombosis. CTA CHEST: 1. No evidence of pulmonary embolus. 2. Multifocal groundglass and solid consolidation involving all 5 lobes with an upper lobe predominance, most consistent with multifocal pneumonia. 3. Mild cardiomegaly. 4. Nodular liver contour could underlying fibrosis/cirrhosis. RENAL US: 1. No hydronephrosis. No renal abscess. 2. Kruse catheter incompletely decompresses the urinary bladder. Correlate clinically for appropriate drainage. ECHO 01/30/17: * Sinus tachycardia, rate 130 bpm * There is mild concentric left ventricular hypertrophy. * Left ventricular systolic function is normal. * No regional wall motion abnormalities noted. * Ejection Fraction = 65-70%. * There is no significant valvular disease * A very small posterolateral loculated pericardial effusion is present ECHO:02/02/17 Limited study performed. * Compared to previous study of 01/30/17: LV and RV function now severely reduced. * Mildly dilated LV chamber size with mild concentric LVH. * Severely reduced LV systolic function with severe global hypokinesis, EF 25 -30%. * Mildly dilated RV chamber. Moderate to severe right ventricular hypokinesis is present that spares the right ventricular apex ECHO 02/11/17: * The left ventricular cavity is small. * There is moderate concentric left ventricular hypertrophy. * Ejection Fraction = 60-65%. * The right ventricular systolic function is normal. * The left atrial size is normal. * Right atrial size is normal. * No significant valvular pathology. Consultations: Immigration Patrol Inspector Hem/Oncology Infectious dx CARDIOLOGY Medication Reconciliation New Medications: Levofloxacin (Levaquin) 500 Mg Tab 1 TAB PO DAILY for 7 Days, #7 TABS Dronabinol (Dronabinol) 2.5 Mg Cap 5 MG PO TIDM for 30 Days, #90 CAP Methylcellulose (Soluble Fiber) 454 Gm Powd 1 GM PO BID PRN for cons for 30 Days Zinc Sulfate (Zinc Sulfate) 220 Mg Cap 220 MG PO QAM for 30 Days, #30 CAP Changed Medications: Trazodone Hcl (Trazodone) 100 Mg Tab 100 MG PO HS PRN for Sleep, #30 (Medication details modified) Continued Medications: Acetaminophen (Tylenol) 500 Mg Tab 1000 MG PO Q6 PRN for Pain or Fever Alendronate Sodium (Fosamax) 70 Mg Tab 70 MG PO WK TAKE THIS MEDICATION EVERY THURSDAY WITH 8 OUNCES OF WATER, 30 MINUTES BEFORE FIRST MEAL OF THE DAY. REMAIN UPRIGHT FOR 30 MINUTES AFTER TAKING. Atorvastatin (Lipitor) 40 Mg Tab 40 MG PO HS Cholecalciferol (Vitamin D 1000 Unit) 1,000 Unit Cap 4000 INTER.UNIT PO DAILY Gabapentin (Neurontin) 300 Mg Cap 300 MG PO TID Levothyroxine Sodium (Synthroid) 100 Mcg Tab 100 MCG PO DAILY Lorazepam (Ativan) 0.5 Mg Tab 0.5 MG PO BID PRN for Anxiety, #30 (This prescription has been renewed) Metoprolol Succ (Toprol Xl) (Toprol-Xl) 50 Mg Tabcr 50 MG PO QAM Ondansetron Hcl (Zofran) 8 Mg Tab 8 MG PO Q8 for Nausea or Vomiting, TAB Oxybutynin Chloride (Oxybutynin Chloride Er) 5 Mg Tab 10 MG PO QAM Pantoprazole (Protonix) 40 Mg Tab 40 MG PO QAM Prochlorperazine Maleate (Compazine) 10 Mg Tab 1 TAB PO Q6 for Nausea or Vomiting for 7 Days, #30 TAB 3 Refills Sertraline (Zoloft) 100 Mg Tab 200 MG PO HS Tramadol (Ultram) 50 Mg Tab 50 MG PO Q6H PRN for Pain, #30 TAB (This prescription has been renewed) Discontinued Medications: Dexamethasone (Decadron) 4 Mg Tab 5 TAB PO UD, TAB 5 tab po with food night before chemo and on the morning of the day of chemo Hydrochlorothiazide (Hctz) 12.5 Mg Cap 12.5 MG PO DAILY Meloxicam (Mobic) 15 Mg Tab 15 MG PO DAILY for Pain, TAB Admission Information HPI (per Admitting provider): Pt is 61 y/o F with PMH uterine CA, HTN, hypothyroidism, depression, Factor V mutation, presented to ER with c/o weakness. Pt reports weakness, nausea, intermittent vomiting and diarrhea since starting chemo for uterine CA on 12/31/16. She was hospitalized 01/08 for weakness, N/V, electrolyte abnormality. Pt states has continued with weakness and nausea. Taking Zofran 8mg 3-4 times a day. Used compazine prior to chemo treatment. She states vomited once over the past week. Reports 2-3 loose BM's daily, this is intermittent also. Reports decreased appetite and hasn't been eating. Drinking approx 3 cups a water a day , however reports past 2 days not drinking well either. States generalized weakness and sits in chair all day. Reports feels too weak to walk around her house and states walking around makes her dizzy. She reports generalized myalgias and chills past week. Denies fever. Denies diaphoresis, melena, hematochezia, hematemesis, HU,syncope, vision changes, neck pain, CP, SOB, orthopnea, palpitations, cough, sore throat, choking, otalgia, rhinorrhea, abdominal pain, paresthesias, extremity edema, rashes, urinary symptoms. In the ER today pt appeared to be dehydrated. WBC: 2.09 (3 baseline), Hgb: 8.4 ( baseline 9.1), K: 2.9. BUN: 29 (20 on 01/08), CR: 1.63 (0.83 on 01/08), CA: 7.3. Pt given 2L NSS, 20meq K IV, zofran 4mg IV. CXR: neg. EKG: sinus tachy 100 , QT: 492. Physical Exam (per Admitting): General Appearance: no apparent distress, + pertinent finding (chronically ill appearing) Head: normocephalic, atraumatic Eyes: normal inspection, PERRL, EOMI, sclerae normal ENT: hearing grossly normal, pharynx normal, + pertinent finding (dry mucous membranes) Neck: supple, no JVD, trachea midline Respiratory/Chest: chest non-tender, lungs clear, normal breath sounds, no respiratory distress, no accessory muscle use Cardiovascular: no murmur, normal peripheral pulses, + tachycardia (100) Abdomen/GI: normal bowel sounds, non tender, soft Back: no CVA tenderness Extremities/Musculoskelatal: normal capillary refill, no pedal edema Neurologic/Psych: alert, normal mood/affect, oriented x 3 Skin: normal color, warm/dry Hospital Course 61F admitted for generalized weakness found to have septic shock from pyelonephritis. e.coli bacteremia and later developed acute resp failure from CHF, Pneumonia requiring intubation. Currently improved and plan to [facility]. As per : ACUTE RESPIRATORY FAILURE Multifocal Pneumonia-HCAP Possible ARDS cardiogenic shock from Takotsubo /stress induced cardiomyopathy severe sepsis from e.coli bacteremia required mechanical ventilation Received Rocephin, imipenem and currently on levaquin to complete the course appreciate critical care and ID inputs NON ISCHEMIC CARDIOMYOPATHY /ACUTE CHF WITH RT HEART FAILURE : ECHO on 01/30/17 : EF 65-70% , no regional wall motion abnormality noted /LV systolic function nl . repeat ECHO 3 days later on 02/02/17 : severe global hypokinesis with EF 25-30% , LV /RV function severely reduced compared to study on 01/30/17 Mildly Dilated RV chamber /moderate to severe rt ventricular Hypokinesis that spares RV [place] . developed acute respiratory failure , with hypoxia, vol over load required ICU transfer /mechanical ventilation /IV Lasix diuresis Renal function improved to baseline . repeat ECHO on 02/11/17 shows normal EF 65 % , resolution of wall motion abnormality . Seen by Cardiology : possible Takotsubo /stress induced cardiomyopathy - resolved as pt clinically improved , with hemodynamic stability cont Beta fahad for rate control no further cardiac work up needed currently on diuretics SEVERE SEPSIS/GRAM NEGATIVE BACTEREMIA /E COLI UTI : Pyelonephritis/bacteremia; Developed ARDS /acute respiratory failure requiring mechanical ventilation , pressor support -ICU transfer Resolved ; extubated on 02/05/17 Blood cultures and Urine culture grew Escherichia coli 01/29/17 repeat Blood culture /urine culture 02/02/17 -no growth appreciate input form Immigration Patrol Inspector and ID Dr Rene pt treated with broad spectrum Abx Rocephin # 10 days ( discontinued on ) pt also received Cefepime # 5 days /Ciprofloxacin # 2 /Vancomycin # 1 Right IJ Central line D/julita on 02/05/17 . pt started on IV imipenem for multilobar Pneumonia /hospital acquired which is changed to Levaquin to complete the course ENDOMETRIAL CA : HX of endometrial CA -Pathology : Clear cell variant , localized disease involving the endometrium only no pelvic lymph node involvement CA 125 level elevated > 90 was been followed with Heme onc Dr García at [facility] pt received Ist cycle of chemo with Paclitaxel and Carboplatin on 12/31/16 also received prophylactic Neulasta on the following day for prophylaxis of febrile neutropenia pt never received 2nd cycle of chemo due to ongoing issues with weakness, N/V , electrolyte imbalance , thrombocytopenia admitted on 01/29/17 with N/V , abdominal pain developed ARDS , respiratory failure , found to have gram negative bacteremia , pyelonephritis urine culture gram negative bacilli E .Coli ( 01/29/17 ) Blood culture gram negative bacilli E.coli ( 01/29/17 ) appreciate input form Heme Onc pt did not had any Chemo tx > 4 weeks due to acute illness prognosis remains poor pt will be followed at Heme Onc office once medically stable /Discharged to D/ w future chemo ANEMIA due to anemia of chronic disease -Malignancy/ chemo tx No clear source of bleeding Pancytopenia secondary to chemotherapy for endometrial cancer s/p 2 units of irradiated PRBC transfusion on 01/30/17 ( hb dropped to 6.4 ) Hb improved , remains stable Heme onc following FACTOR V LEIDEN DEFICIENCY dx in 2013 , 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 was on Coumadin for 1 month Has not been on chronic outpatient anticoagulation Lower extremity duplex negative for DVT started on therapeutic Lovenox 1 mg /kg /daily in ICU on 02/06/17 CTA chest shows no evidence of PE Lower ext Doppler no DVT therapeutic Lovenox D/julita -risk of bleeding on anticoagulation out weights benefit ACUTE RENAL FAILURE /CKD STAGE 3 Renal ultrasound showed no hydronephrosis Resolved Creatinine improved 0.60 DVT PX Lovenox changed to prophylaxis dose as no evidence of PEor DVT noted will not need intermediate anticoagulation CODE STATUS DNR/DNI DISPOSITION pt shows significant functional decline appreciate PT/OT eval d/w Family; referral at [facility] accepted stable to be transferred to [facility] today Total time spent on discharge = 4OMINUTES This includes examination of the patient, discharge planning, medication reconciliation, and communication with other providers. Discharge Instructions Discharge Instructions Date of Service Feb 13, 2017. Admission Reason for Admission: Juan, Hypokalemia Discharge Discharge Diagnosis / Problem: RESPIRATORY FAILURE /SEVERE SEPSIS /BILATERAL PNEUMONIA Discharge Goals Goal(s): Decrease discomfort, Improve function, Increase independence, Improve disease control, Diagnostic testing, Therapeutic intervention Activity Recommendations Activity Level: Assistance Required Therapies: Physical Therapy, Occupational Therapy . Additional Information Patient informed of condition: Yes Advance Directives: Yes DNR: Yes Level of Care: Skilled Communicable Disease: No Prognosis: Stable Kruse Catheter: No Instructions / Follow-Up Instructions / Follow-Up FOLLOW UP WITH FAMILY PHYSICIAN AFTER DISCHARGE FORM REHAB Current Hospital Diet Patient's current hospital diet: Regular Diet Discharge Diet Recommended Diet: Regular Diet Pending Studies Studies pending at discharge: no Laboratory Results Hemoglobin A1c Test 02/03/17 04:03 Range/Units Estimated Average Glucose 143 mg/dl Hemoglobin A1c 6.6 H 4.5-5.6 % Medical Emergencies . Who to Call and When: Medical Emergencies: If at any time you feel your situation is an emergency, please call 911 immediately. . Non-Emergent Contact Non-Emergency issues call your: Primary Care Provider
[2017-02-14 15:37] VITALS: BP 137/87; PULSE 80; TEMP 36.5; O2SAT 96
[2017-02-14 16:06] VITALS: BP 116/76; PULSE 78; TEMP 36.8; O2SAT 94
== END 2017-02-14 17:41 | DRG 871 ==
LOC: EDBD 09:32 → C.EDA 09:34 → C.2T 12:16 → ENRESERV 12:49 → C.MSICU 01-30 05:47 → ENRESERV 01-31 11:14 → C.2E 01-31 12:15 → ENRESERV 02-01 13:55 → C.MSICU 02-01 14:09 → CANBEDREQ 02-07 12:59 → C.2T 02-07 13:47 → ENRESERV 02-12 18:11 → C.MS4W 02-12 19:06
PROVIDERS: ADMIT Family Medicine; ATTEND Internal Medicine
PROC: 5A09457 Assistance with Respiratory Ventilation, 24-96 Consecutive Hours, Continuous Positive Airway Pressure (ICD-10-PCS; principal; 2017-02-01)
PROC: 05HN33Z Insertion of Infusion Device into Left Internal Jugular Vein, Percutaneous Approach (ICD-10-PCS; principal; 2017-02-01)
PROC: 0BH17EZ Insertion of Endotracheal Airway into Trachea, Via Natural or Artificial Opening (ICD-10-PCS; principal; 2017-02-01)
DX: A41.9 Sepsis, unspecified organism (principal); R65.21 Severe sepsis with septic shock; J96.00 Acute respiratory failure, unspecified whether with hypoxia or hypercapnia; R57.0 Cardiogenic shock; J18.9 Pneumonia, unspecified organism; D68.51 Activated protein C resistance; N17.9 Acute kidney failure, unspecified; E87.2 Acidosis; N10 Acute pyelonephritis; J81.1 Chronic pulmonary edema; I51.81 Takotsubo syndrome; Z51.5 Encounter for palliative care; C55 Malignant neoplasm of uterus, part unspecified; R11.0 Nausea; I11.0 Hypertensive heart disease with heart failure; E03.9 Hypothyroidism, unspecified; F32.9 Major depressive disorder, single episode, unspecified; Z82.49 Family history of ischemic heart disease and other diseases of the circulatory system; Z80.41 Family history of malignant neoplasm of ovary; Z80.49 Family history of malignant neoplasm of other genital organs; E87.6 Hypokalemia; D64.9 Anemia, unspecified; E86.0 Dehydration; F41.9 Anxiety disorder, unspecified; E78.5 Hyperlipidemia, unspecified; K21.9 Gastro-esophageal reflux disease without esophagitis; D70.1 Agranulocytosis secondary to cancer chemotherapy; E11.9 Type 2 diabetes mellitus without complications; B96.20 Unspecified Escherichia coli [E. coli] as the cause of diseases classified elsewhere; I50.9 Heart failure, unspecified; I50.810 Right heart failure, unspecified

== ENCOUNTER 2017-03-30 06:34 | Inpatient (IN) | payer OTHER ==
[~2017-03-30] VITALS: Ht 152.4 cm; Wt 76.2 kg
[~2017-03-30 06:34] MED LIST changes: +DRON2.5C10 PO; -HYDR-3983 PO; -HYDR12.56 PO; +LEVO-459 PO; -METO50TA7 PO; +METO50TA8 PO; +ONDA8TAB12 PO; -OXYC-57 PO; +PROC1TAB5 PO; -SERT50TA PO; +TRAM-10 PO; +TYLOTC500 PO; +ZNCS220 PO; +[UNRECOGNIZED DRUG - CODE] PO
[2017-03-30] MEDS ORDERED: MoRPHine SULFATE 4 MG/ML 1 ML CARP\\VIAL IV STA ×2 (07:29→10:47)
[2017-03-30] MEDS ORDERED: PROCHLORPERAZINE 5 MG/ML 2 ML VIAL IV STA (07:29)
[2017-03-30 08:10] LABS: BASO % 0.2 %; BASO ABS # 0.02 K/uL (0-0.2); EOS % 0.6 %; EOS ABS # 0.06 K/uL (0-0.5); HEMATOCRIT 35.6 % (37-47); HEMOGLOBIN 11.5 g/dL (12.0-16.0); IG# 0.03 K/uL (0.00-0.02); LYMPH % 11.8 %; LYMPH ABS # 1.17 K/uL (1.2-3.4); MEAN CELL VOLUME 93.9 fL (80-100); MEAN CORPUSCULAR HEMOGLOBIN 30.3 pg (25-34); MEAN CORPUSCULAR HGB CONC 32.3 g/dl (32-36); MEAN PLATELET VOLUME 9.1 fL (7.4-10.4); MONO % 6.1 %; PLATELET COUNT 197 K/uL (130-400); RED CELL DISTRIBUTION WIDTH CV 17.8 % (11.5-14.5); RED CELL DISTRIBUTION WIDTH SD 61.2 fL (36.4-46.3); WHITE BLOOD COUNT 9.88 K/uL (4.8-10.8)
[2017-03-30 08:23] LABS: INR 1.1 (0.9-1.1); PTT PATIENT 34.1 SECONDS (21.0-31.0)
[2017-03-30 08:36] LABS: ALBUMIN 2.4 gm/dl (3.4-5.0); CALCIUM 8.3 mg/dl (8.5-10.1); CREATININE 1.11 mg/dl (0.60-1.20); POTASSIUM 2.6 mmol/L (3.5-5.1); TOTAL PROTEIN 6.5 gm/dl (6.4-8.2)
[2017-03-30] MEDS ORDERED: SODIUM CHLORIDE 0.9% 1000ML 1,000 ML IV STA ×2 (08:38)
[2017-03-30] MEDS ORDERED: PIPERACILLIN/TAZOBACTAM 4.5 GM/100ML D5W IV STA (08:38)
--- NOTE | 2017-03-30 09:00 | EMERGENCY ROOM VISIT NOTE ---
ED Visit Note First contact with patient: 07:04 I have personally seen and evaluated the patient with the physician program support assistant. I agree with the diagnostic/management decisions and have personally been involved in these decisions and agree with the diagnosis.
--- NOTE | 2017-03-30 09:19 | DIAGNOSTIC IMAGING REPORT ---
ABDOMEN 2VIEW W/PA CHEST RTN CLINICAL HISTORY: 61 years-old Female presenting with ABD PAIN, N/V/D X 3 DAYS. TECHNIQUE: PA view of the chest and supine and left lateral decubitus views of the abdomen were obtained. COMPARISON: 02/14/2017. FINDINGS: Right internal jugular Mediport terminates near the confluence of the right internal jugular and right subclavian veins. Atherosclerosis of the aortic arch. Cardiac silhouette mildly prominent. Mildly low lung volumes with hypoventilatory changes. No focal opacity. No large effusion or pneumothorax. Postsurgical changes in the epigastrium near the gastroesophageal junction. Cholecystectomy clips noted. Suggestion of mild small bowel wall thickening. Nonobstructive bowel gas pattern. Mild stool burden. Allowing for bowel gas and stool, no calcifications to suggest nephrolithiasis. Partially visualized intramedullary nail fixation of the left femoral neck and proximal metadiaphysis. Extensive heterotopic ossification posttraumatic deformity of the left femoral neck. Degenerative changes in the lower lumbar spine. Osteopenia may be present. IMPRESSION: 1. Mildly low lung volumes with hypoventilatory changes. 2. No bowel obstruction or free air. 3. Suggestion of small bowel wall thickening, which could suggest enteritis. 4. No radiographic evidence of acute intra-abdominal pathology. Electronically signed by: Devaughn Ozuna M.D. 03/30/2017 9:17 AM Dictated Date/Time: 03/30/2017 9:04 AM
[2017-03-30] MEDS ORDERED: POTASSIUM CHLORIDE 10 MEQ TABCR PO STA (10:47)
[2017-03-30] MEDS ORDERED: POTASSIUM CHLR 20 MEQ / WTR 20 MEQ in PREMIXED WATER 100 ML IV STA (11:49)
[2017-03-30] MEDS ORDERED: ONDANSETRON INJ 2 MG/ML 2 ML VIAL IV PRN (12:00)
[2017-03-30] MEDS ORDERED: ACETAMINOPHEN 325 MG TAB PO PRN (12:00)
[2017-03-30] MEDS ORDERED: ENOXAPARIN 40 MG/0.4 ML SYR SC SCH (12:00)
[2017-03-30 12:10] VITALS: O2SAT 95; BMI 32.1
[2017-03-30] MEDS: POTASSIUM CHLR 10MEQ / WTR IV SCH ×2 (12:12→14:16)
--- NOTE | 2017-03-30 12:22 | History and Physical ---
History & Physical Date & Time of Service: Mar 30, 2017 at 12:17 Chief Complaint: Abdominal Pain/Nausea/Vomiting/Diarrhea Primary Care Physician: Pablo Holland D.O. History of Present Illness Source: patient, clinic records, hospital records This is a 61yo F with a PMH of endometrial cancer (chemo initiated in December 2016), HTN, depression, Factor V mutation, DM II and hypothyroidism who presents with diffuse abdominal pain and diarrhea x 3 days. Developed diffuse abdominal pain over the weekend described as aching, intermittent and non- radiating. Associated loose, watery stool multiple times a day. Has been wearing depends 2/2 incontinence. Has been nauseous but has not been vomiting. Tried to take anti-emetics at home but symptoms did not improve. Endorses some confusion as well as nausea, abdominal pain, dysuria and generalized weakness. Poor PO intake. Is unsure when her last chemo dose was. Lives with at home but has home health. Requires help with transfers and ADLs, ambulates with wheelchair. Follows with Dr. García for treatment of endometrial cancer (clear cell) was initiated in December 2016. Second cycle in January was held 2/2 thrombocytopenia but has continued to receive IV iron. Was then admitted to [facility] from01/29/2017-02/14/2017 for septic shock 2/2 e.coli pyelonephritis, HCAP , acute respiratory failure and cardiogenic shock. Required intubation. Was found to have stress-induced cardiomyopathy and CHF with an EF of 25-30% that has since improved to 65%. Was discharged on course of Levaquin for HCAP and sent to [facility] for rehab from 02/14/2017-03/12/2017. During time at [facility], was found to have swelling of her RUE and was found to have a DVT. Was started on SQ Lovenox 60mg BID. Sent home from rehab with home health and out- patient PT/OT. Per chart review, was seen by heme onc following hospital discharge and was told that due to deconditioning and current performance status , chemo cannot be restarted at this time. Has an appointment with Dr. García later this week. Denies fever, chills, headache, lightheadedness, near-syncope, visual changes, sore throat, chest pain, SOB, vomiting, constipation, focal weakness or LE swelling. Past Medical/Surgical History Medical Problems: (1) Anemia Status: Chronic (2) B12 deficiency Status: Chronic (3) Benign hypertension Status: Chronic (4) Depression Status: Chronic (5) Diabetes mellitus type 2 Status: Chronic (6) Dyslipidemia Status: Chronic (7) Endometrial cancer Status: Chronic (8) Factor V Leiden mutation Status: Chronic (9) Hypothyroidism Status: Chronic Surgical Problems: (1) History of bilateral knee arthroplasty Status: Resolved (2) Hx of cholecystectomy Status: Resolved (3) Hx of gastric bypass Permanent Comment: 07/06/06 -[facility] [place] Villeda Status: Resolved (4) Total replacement of hip Status: Resolved Family History Diabetes mellitus SISTER FH: CAD (coronary artery disease) MOTHER (DE) FH: cancer MOTHER (endometrial CA) SISTER (endometrial CA or ovarian CA) Social History Smoking Status: Never Smoker Drug Use: none Marital Status: Housing status: lives with family Occupational Status: disabled Immunizations History of Influenza Vaccine: No Influenza Vaccine Date: Mar 07, 2010 History of Tetanus Vaccine?: UTD History of Pneumococcal: Yes Pneumococcal Date: Jun 06, 2006 History of Hepatitis B Vaccine: No Multi-Drug Resistant Organisms History of MDRO: No Allergies Coded Allergies: No Known Allergies (Verified , 03/30/17) Home Medications Scheduled Alendronate Sodium (Fosamax), 70 MG PO WK Atorvastatin (Lipitor), 40 MG PO HS Cholecalciferol (Vitamin D 1000 Unit), 4,000 INTER.UNIT PO DAILY Dronabinol (Dronabinol), 5 MG PO TIDM Enoxaparin (Lovenox), 60 MG INJ BID Gabapentin (Neurontin), 300 MG PO TID Levothyroxine Sodium (Synthroid), 100 MCG PO DAILY Metoprolol Succ (Toprol Xl) (Toprol-Xl), 50 MG PO QAM Oxybutynin Chloride (Oxybutynin Chloride Er), 10 MG PO QAM Sertraline (Zoloft), 200 MG PO HS Zinc Sulfate (Zinc Sulfate), 220 MG PO QAM Scheduled PRN Acetaminophen (Tylenol), 1,000 MG PO Q6 PRN for Pain or Fever Hydrocodone/Acetaminophen 5MG/325MG ([place] 5MG/325MG), 1 TAB PO Q4 PRN for Moderate Pain Lorazepam (Ativan), 0.5 MG PO BID PRN for Anxiety Ondansetron Hcl (Zofran), 8 MG PO Q8 PRN for Nausea or Vomiting Prochlorperazine Maleate (Compazine), 1 TAB PO Q6 PRN for Nausea or Vomiting Tramadol (Ultram), 50 MG PO Q6H PRN for Pain Trazodone Hcl (Trazodone), 100 MG PO HS PRN for Sleep Review of Systems Ten systems reviewed and negative except as noted in the HPI. Physical Exam Vital Signs Date Time Temp Pulse Resp B/P (MAP) Pulse Ox O2 Delivery O2 Flow Rate FiO2 03/30/17 12:13 98 16 129/69 95 Room Air 03/30/17 11:06 98 18 98/55 97 Room Air 03/30/17 10:21 102 22 93/53 93 Room Air 03/30/17 09:35 98 03/30/17 09:12 97 18 100/65 94 Room Air 03/30/17 08:07 103 20 94/67 95 Room Air 03/30/17 07:09 107 22 107/78 98 Room Air 03/30/17 07:00 94 Room Air 03/30/17 06:44 36.5 107 16 118/89 95 Room Air 03/30/17 06:43 107 General Appearance: no apparent distress, + pertinent finding (Appears older than stated age, chronically ill appearance. ) Head: normocephalic, atraumatic Eyes: normal inspection, PERRL, sclerae normal ENT: normal ENT inspection, hearing grossly normal, pharynx normal (dry mucous membranes ) Neck: supple, thyroid normal, trachea midline Respiratory/Chest: chest non-tender, lungs clear, normal breath sounds, no respiratory distress, no accessory muscle use Cardiovascular: regular rate, rhythm, no murmur, normal peripheral pulses Abdomen/GI: non tender, soft, + tenderness (Diffusely TTP ) Extremities/Musculoskelatal: normal inspection, no calf tenderness, no pedal edema Neurologic/Psych: no motor/sensory deficits, alert, normal reflexes, oriented x 3 (Confusion with situation) Skin: normal color, warm/dry Diagnostics Laboratory Results Results Past 24 Hours Test 03/30/17 07:45 03/30/17 07:58 03/30/17 09:29 Range/Units Urine Color DK YELLOW Urine Appearance CLOUDY CLEAR Urine pH 6.0 4.5-7.5 Urine Specific [place] 1.017 1.000-1.030 Urine Protein TRACE NEG Urine Glucose (UA) NEG NEG Urine Ketones TRACE NEG Urine Occult Blood 3+ NEG Urine Nitrite POS NEG Urine Bilirubin NEG NEG Urine Urobilinogen POS NEG Urine Leukocyte Esterase MODERATE NEG Urine WBC (Auto) 10-30 0-5 /hpf Urine RBC (Auto) 5-10 0-4 /hpf Urine Hyaline Casts (Auto) 5-10 0-5 /lpf Urine Epithelial Cells (Auto) 0-5 0-5 /lpf Urine Bacteria (Auto) 4+ NEG Urine Yeast (Auto) NONE PRSENT White Blood Count 9.88 4.8-10.8 K/uL Red Blood Count 3.79 4.2-5.4 M/uL Hemoglobin 11.5 12.0-16.0 g/dL Hematocrit 35.6 37-47 % Mean Corpuscular Volume 93.9 80-100 fL Mean Corpuscular Hemoglobin 30.3 25-34 pg Mean Corpuscular Hemoglobin Concent 32.3 32-36 g/dl Platelet Count 197 130-400 K/uL Mean Platelet Volume 9.1 7.4-10.4 fL Neutrophils (%) (Auto) 81.0 % Lymphocytes (%) (Auto) 11.8 % Monocytes (%) (Auto) 6.1 % Eosinophils (%) (Auto) 0.6 % Basophils (%) (Auto) 0.2 % Neutrophils # (Auto) 8.00 1.4-6.5 K/uL Lymphocytes # (Auto) 1.17 1.2-3.4 K/uL Monocytes # (Auto) 0.60 0.11-0.59 K/uL Eosinophils # (Auto) 0.06 0-0.5 K/uL Basophils # (Auto) 0.02 0-0.2 K/uL RDW Standard Deviation 61.2 36.4-46.3 fL RDW Coefficient of Variation 17.8 11.5-14.5 % Immature Granulocyte % (Auto) 0.3 % Immature Granulocyte # (Auto) 0.03 0.00-0.02 K/uL Prothrombin Time 11.4 9.0-12.0 SECONDS Prothromb Time International Ratio 1.1 0.9-1.1 Activated Partial Thromboplast Time 34.1 21.0-31.0 SECONDS Partial Thromboplastin Ratio 1.3 Sodium Level 135 136-145 mmol/L Potassium Level 2.6 3.5-5.1 mmol/L Chloride Level 92 98-107 mmol/L Carbon Dioxide Level 30 21-32 mmol/L Anion Gap 13.0 3-11 mmol/L Blood Urea Nitrogen 18 7-18 mg/dl Creatinine 1.11 0.60-1.20 mg/dl Est Creatinine Clear Calc Drug Dose 49.2 ml/min Estimated GFR () 62.9 Estimated GFR (Non- 54.3 BUN/Creatinine Ratio 16.0 10-20 Random Glucose 144 70-99 mg/dl Calcium Level 8.3 8.5-10.1 mg/dl Magnesium Level 2.2 1.8-2.4 mg/dl Total Bilirubin 1.3 0.2-1 mg/dl Aspartate Amino Transf (AST/SGOT) 33 15-37 U/L Alanine Aminotransferase (ALT/SGPT) 15 12-78 U/L Alkaline Phosphatase 146 45-117 U/L Total Protein 6.5 6.4-8.2 gm/dl Albumin 2.4 3.4-5.0 gm/dl Globulin 4.1 2.5-4.0 gm/dl Albumin/Globulin Ratio 0.6 0.9-2 Lipase 46 73-393 U/L Bedside Lactic Acid Venous 1.07 0.90-1.70 mmol/L Microbiology Results 03/30/17 Blood Culture, Received Pending 03/30/17 Blood Culture, Received Pending 03/30/17 Blood Culture, Received Pending 03/30/17 Shiga Toxin Test, Received Pending 03/30/17 Stool Culture, Received Pending 03/30/17 C.difficile Toxin B Gene (PCR) - Final, Complete No C. difficile toxin B gene detected 03/30/17 Urine Culture, Received Pending Diagnostic Radiology Head CT: IMPRESSION: 1. Chronic small vessel ischemic change. No acute intracranial abnormality. Chest/abd XR: IMPRESSION: 1. Mildly low lung volumes with hypoventilatory changes. 2. No bowel obstruction or free air. 3. Suggestion of small bowel wall thickening, which could suggest enteritis. 4. No radiographic evidence of acute intra-abdominal pathology. Impression Assessment and Plan This is a 61yo F with a PMH of endometrial cancer (chemo initiated in December 2016), HTN, depression, Factor V mutation, DM II and hypothyroidism who presents with diffuse abdominal pain and diarrhea x 3 days. UTI: -Urinary incontinence -H/o severe sepsis 2/2 e. coli UTI in Jan 2017 -UA + for infection -Urine and blood cultures pending -Lactic acid wnl -Continue zosyn, vanc for empiric coverage -IVF resuscitation Metabolic encephalopathy: -Likely 2/2 UTI -CT head with chronic small vessel ischemic change. No acute intracranial abnormality -Recent out-patient brain MRI performed 2/2 worsening confusion -Extensive T2/flair hyperdensity again noted in the cerebral white matter, nonspecific -Demyelinating process should be ruled out -No acute intracranial abnormality. No enhancing metastatic lesions identified Nausea, abdominal pain, diarrhea: -H/o c diff colitis -Stool culture pending. C diff gene negative -Abd XR suggests enteritis -Covering with zosyn, vanc -Cont anti-emetics, home pain meds Hypokalemia: -2/2 GI losses -Replaced -Monitor Endometrial cancer: -Chemo initiated in Dec 2016. -Did not receive more recent chemo due to thrombocytopenia, deconditioning -Heme onc appt with Dr. García on 04/01 Anemia: -Received IV iron as an out-patient per heme onc -Hgb stable at 11.5 H/o RUE DVT, Factor V mutation: -Cont SQ Lovenox 60mg BID Depression: -Endorses worsening lately -No SI/HI -Cont Zoloft, trazodone for sleep Hypothyroidism: -Cont levothyroxine DM II: -Diet controlled -A1c pending DVT Ppx: Lovenox Code status: FULL per discussion with patient. PCP: Skyler Dispo: Admitted to telemetry. Discharge planning ordered. PT/OT evals ordered. Patient seen in collaboration with Dr. Escalante. Please see addendum. ADDENDUM: This is a 61 year old female with a PMH of uterine CA s/p chemotherapy, Factor V Leiden mutation and recent RUE DVT, HTN, depression, DM2 - recent admission to [facility] with hypotension, respiratory failure requiring ICU admission with intubation and mechanical ventilation. She was extubated and was treated for fluid overload, possible Takotsubo cardiomyopathy and was discharged to [facility]. At [facility], she was diagnosed with a R upper extremity DVT and was started on Lovenox. She also had altered mental status at times over there and had some medications adjusted (Marinol was held). She was discharged from [facility] to home less than 2 weeks prior to arrival here. Presented here with significant weakness, generalized weakness/nausea/vomiting and diarrhea. Presented to the ED, had a Head CT done, which was negative. UA is dirty and UTI is possibly causing metabolic encephalopathy. Was monitored in tele in room 201 and I was called due to atrial flutter being seen on monitor. Plan: New Onset Atrial Flutter likely due to hypokalemia - which we will continue to supplement will monitor in tele already anticoagulated with Lovenox 1mg/kg q12 continue Toprol XL 50mg daily; can titrate up if rate increases will get an echo check TSH consulted cardiology for further input Metabolic Encephalopathy secondary to UTI patient has a UTI, slightly confused and altered recently admitted to [facility] as well as [facility] home will start Vancomycin + Zosyn; to cover possible urine infection as well as GI infection check cultures and adjust meds accordingly will stop Marinol for now Uterine CA no longer receiving adjuvant chemotherapy due to mental status/diarrhea, etc. will check another MRI, she had one earlier in March 2017 with no significant findings, but with new onset atrial flutter, worry about CVA Viral Gastroenteritis abdominal CT suggests nonspecific enteritis Zofran PRN IVF resuscitation monitor blood pressure and electrolytes stool cultures pending, continue Zosyn for now Recent RUE DVT continue Lovenox 60mg BID FULL CODE as per patient, will need to discuss with daughter Level of Care Med/Surg Resuscitation Status FULL RESUSCITATION VTE Prophylaxis VTE Risk Assessment Done? Y/N: Yes Risk Level: High Given or contraindicated: Enoxaparin (Lovenox)SQ
[2017-03-30] MEDS ORDERED: ENOX60IN INJ (12:24)
[2017-03-30] MEDS ORDERED: HYDR-5688 PO (12:28)
[2017-03-30] MEDS ORDERED: ACETAMINOPHEN 500 MG TAB PO PRN (12:30)
[2017-03-30] MEDS ORDERED: LORAZEPAM 0.5 MG TAB PO PRN (12:30)
[2017-03-30] MEDS ORDERED: PIPERACILL/TAZOBAC CONSULT ACTIVE PRN (12:45)
--- NOTE | 2017-03-30 13:00 | DIAGNOSTIC IMAGING REPORT ---
HEAD WITHOUT CONTRAST (CT) CLINICAL HISTORY: 61 years-old Female presenting with altered mental status. TECHNIQUE: Multidetector CT imaging of the head was performed without the use of intravenous contrast. IV contrast: None. A dose lowering technique was used consistent with the principles of ALARA (as low as reasonably achievable). COMPARISON: 01/08/2017. CT DOSE (mGy.cm): The estimated cumulative dose is 690.05 mGycm. FINDINGS: Revolving Field Assembler topogram: Unremarkable. Ventricles and sulci normal in size. Periventricular and subcortical white matter hypoattenuation, nonspecific but likely indicative of chronic small vessel ischemic change. Old lacunar infarcts in the basal ganglia. No mass effect or midline shift. No hemorrhage or acute territorial infarct. No extra-axial fluid collection. Fluid noted in the left mastoid air cells. Calvarium intact. IMPRESSION: 1. Chronic small vessel ischemic change. No acute intracranial abnormality. Electronically signed by: Devaughn Ozuna M.D. 03/30/2017 12:59 PM Dictated Date/Time: 03/30/2017 12:56 PM
[2017-03-30] MEDS ORDERED: CONSULT PHARMACY PRN (14:48)
[2017-03-30 15:01] VITALS: BP 108/67; PULSE 97; TEMP 36.6; O2SAT 99
[2017-03-30] MEDS: TRAMADOL HCL 50 MG TAB PO PRN (15:43)
[2017-03-30] MEDS: SODIUM CHLORIDE 0.9% 1000ML 1,000 ML IV SCH (15:44)
--- NOTE | 2017-03-30 16:07 | Pharmacy Progress Note ---
Pharmacy Antibiotic Consult Date of Service: Mar 30, 2017. Pharmacy Dosing Scope Pharmacy is consulted to initiate vancomycin/zosyn IV dosing therapy, order appropriate labs and adjust drug dose/frequency. Subjective The patient is a 61 year old female admitted on Mar 30, 2017 at 11:51. Objective Height (Feet): 5 Height (Inches): 0.00 Weight (Kilograms): 74.500 Lab Results (24hrs): Test 03/30/17 07:45 03/30/17 07:58 03/30/17 09:29 Urine Color DK YELLOW Urine Appearance CLOUDY (CLEAR) Urine pH 6.0 (4.5-7.5) Urine Specific [place] 1.017 (1.000-1.030) Urine Protein TRACE (NEG) Urine Glucose (UA) NEG (NEG) Urine Ketones TRACE (NEG) Urine Occult Blood 3+ (NEG) Urine Nitrite POS (NEG) Urine Bilirubin NEG (NEG) Urine Urobilinogen POS (NEG) Urine Leukocyte Esterase MODERATE (NEG) Urine WBC (Auto) 10-30 /hpf (0-5) Urine RBC (Auto) 5-10 /hpf (0-4) Urine Hyaline Casts (Auto) 5-10 /lpf (0-5) Urine Epithelial Cells (Auto) 0-5 /lpf (0-5) Urine Bacteria (Auto) 4+ (NEG) Urine Yeast (Auto) (NONE PRSENT) White Blood Count 9.88 K/uL (4.8-10.8) Red Blood Count 3.79 M/uL (4.2-5.4) Hemoglobin 11.5 g/dL (12.0-16.0) Hematocrit 35.6 % (37-47) Mean Corpuscular Volume 93.9 fL (80-100) Mean Corpuscular Hemoglobin 30.3 pg (25-34) Mean Corpuscular Hemoglobin Concent 32.3 g/dl (32-36) Platelet Count 197 K/uL (130-400) Mean Platelet Volume 9.1 fL (7.4-10.4) Neutrophils (%) (Auto) 81.0 % Lymphocytes (%) (Auto) 11.8 % Monocytes (%) (Auto) 6.1 % Eosinophils (%) (Auto) 0.6 % Basophils (%) (Auto) 0.2 % Neutrophils # (Auto) 8.00 K/uL (1.4-6.5) Lymphocytes # (Auto) 1.17 K/uL (1.2-3.4) Monocytes # (Auto) 0.60 K/uL (0.11-0.59) Eosinophils # (Auto) 0.06 K/uL (0-0.5) Basophils # (Auto) 0.02 K/uL (0-0.2) RDW Standard Deviation 61.2 fL (36.4-46.3) RDW Coefficient of Variation 17.8 % (11.5-14.5) Immature Granulocyte % (Auto) 0.3 % Immature Granulocyte # (Auto) 0.03 K/uL (0.00-0.02) Prothrombin Time 11.4 SECONDS (9.0-12.0) Prothromb Time International Ratio 1.1 (0.9-1.1) Activated Partial Thromboplast Time 34.1 SECONDS (21.0-31.0) Partial Thromboplastin Ratio 1.3 Sodium Level 135 mmol/L (136-145) Potassium Level 2.6 mmol/L (3.5-5.1) Chloride Level 92 mmol/L (98-107) Carbon Dioxide Level 30 mmol/L (21-32) Anion Gap 13.0 mmol/L (3-11) Blood Urea Nitrogen 18 mg/dl (7-18) Creatinine 1.11 mg/dl (0.60-1.20) Est Creatinine Clear Calc Drug Dose 49.2 ml/min Estimated GFR () 62.9 Estimated GFR (Non- 54.3 BUN/Creatinine Ratio 16.0 (10-20) Random Glucose 144 mg/dl (70-99) Calcium Level 8.3 mg/dl (8.5-10.1) Magnesium Level 2.2 mg/dl (1.8-2.4) Total Bilirubin 1.3 mg/dl (0.2-1) Aspartate Amino Transf (AST/SGOT) 33 U/L (15-37) Alanine Aminotransferase (ALT/SGPT) 15 U/L (12-78) Alkaline Phosphatase 146 U/L (45-117) Total Protein 6.5 gm/dl (6.4-8.2) Albumin 2.4 gm/dl (3.4-5.0) Globulin 4.1 gm/dl (2.5-4.0) Albumin/Globulin Ratio 0.6 (0.9-2) Lipase 46 U/L (73-393) Bedside Lactic Acid Venous 1.07 mmol/L (0.90-1.70) Assessment & Plan Patient presents with possible GI/ UTI with recent chemo, hospital stay, and antibiotic use. Loading dose: 1500 mg IV X 1 dose then: 1000 mg IV every 22 hours. Goal trough level estimate: between 15 - 20 mcg/mL. Peak and trough or random level has been ordered for: @1130. Zosyn: 4.5g X 1 then 3.375g q8h Pharmacy will continue to follow and will adjust dose/frequency as necessary. Thank you
[2017-03-30] MEDS ORDERED: VANCOMYCIN INJ 1,500 MG in SODIUM CHLORIDE 0.9% 500ML 500 ML IV ONE (16:15)
[2017-03-30] MEDS ORDERED: VANCOMYCIN CONSULT ACTIVE PRN (16:15)
[2017-03-30] MEDS: PIPERACILL/TAZOBAC IV 3.375 GM in DEXTROSE 5% 100ML IV SCH ×2 (16:33→23:38)
--- NOTE | 2017-03-30 16:43 | EMERGENCY ROOM VISIT NOTE ---
History First contact with patient: 07:04 Chief Complaint: ABDOMINAL PAIN Stated Complaint: ABDOMINAL PAIN/NAUSEA/VOMITING/DIARRHEA Nursing Triage Summary: Patient arrived via EMS from home. EMS reports patient has had nausea, vomiting and diarhea for three days. PAtient has ovarian cancer and history of c diff. PAtient was concerned it could be c diff reoccurence. History of Present Illness Patient is a 61-year-old white female with past medical history significant for hypertension, dyslipidemia, hypothyroidism, endometrial cancer presently undergoing chemotherapy, among other medical problems, who presents to the emergency department by ALS ambulance for evaluation of nausea, vomiting, diarrhea and abdominal cramping 3 days. Patient reports that her last chemotherapy treatment was last week. She states through this weekend, she has developed diffuse abdominal cramping, and multiple episodes of loose, watery diarrhea. She essentially has been incontinent of all stools and urine for the last 3 days. She has been wearing an adult diaper. She reports mild diffuse abdominal cramping that she rates a 4/10. She is nauseous but has not been vomiting. She admits to poor oral intake. She has not documented any fevers. She tried taking Zofran and Compazine at home for her symptoms with minimal relief. She has a remote history of C. difficile colitis, and was recently on multiple antibiotics in January of this year for pneumonia/pyelonephritis/ sepsis. She reports that she has been home for only about 2 weeks [facility]. She was supposed to have an appointment to see Dr. Holland today but she was unable to make it due to her current illness. Patient had a very complicated hospitalization here from 01/29 through 02/14/17 , was found to have septic shock secondary to a coli pyelonephritis/bacteremia, and a multiple pneumonia. She developed acute respiratory failure and cardiogenic shock and required intubation. Review of Systems Review of systems as per HPI. All other systems reviewed were negative. 10 systems reviewed. Past Medical/Surgical History Medical Problems: (1) Anemia (2) B12 deficiency (3) Benign hypertension (4) Depression (5) Diabetes mellitus type 2 (6) Dyslipidemia (7) Endometrial cancer (8) Factor V Leiden mutation (9) Hypothyroidism Surgical Problems: (1) History of bilateral knee arthroplasty (2) Hx of cholecystectomy (3) Hx of gastric bypass (4) Total replacement of hip Electronic medical records are reviewed and summarized as above/below. See Problem List. Family History Diabetes mellitus SISTER FH: CAD (coronary artery disease) MOTHER ([place]) FH: cancer MOTHER (endometrial CA) SISTER (endometrial CA or ovarian CA) Social History Smoking Status: Never Smoker Alcohol Use: none Drug Use: none Marital Status: Occupation Status: disabled Current/Historical Medications Scheduled Alendronate Sodium (Fosamax), 70 MG PO WK Atorvastatin (Lipitor), 40 MG PO HS Cholecalciferol (Vitamin D 1000 Unit), 4,000 INTER.UNIT PO DAILY Dronabinol (Dronabinol), 5 MG PO TIDM Enoxaparin (Lovenox), 60 MG INJ BID Gabapentin (Neurontin), 300 MG PO TID Levothyroxine Sodium (Synthroid), 100 MCG PO DAILY Metoprolol Succ (Toprol Xl) (Toprol-Xl), 50 MG PO QAM Oxybutynin Chloride (Oxybutynin Chloride Er), 10 MG PO QAM Sertraline (Zoloft), 200 MG PO HS Zinc Sulfate (Zinc Sulfate), 220 MG PO QAM Scheduled PRN Acetaminophen (Tylenol), 1,000 MG PO Q6 PRN for Pain or Fever Hydrocodone/Acetaminophen 5MG/325MG ([place] 5MG/325MG), 1 TAB PO Q4 PRN for Moderate Pain Lorazepam (Ativan), 0.5 MG PO BID PRN for Anxiety Ondansetron Hcl (Zofran), 8 MG PO Q8 PRN for Nausea or Vomiting Prochlorperazine Maleate (Compazine), 1 TAB PO Q6 PRN for Nausea or Vomiting Tramadol (Ultram), 50 MG PO Q6H PRN for Pain Trazodone Hcl (Trazodone), 100 MG PO HS PRN for Sleep Physical Exam Vital Signs Date Time Temp Pulse Resp B/P (MAP) Pulse Ox O2 Delivery O2 Flow Rate FiO2 03/30/17 11:06 98 18 98/55 97 Room Air 03/30/17 10:21 102 22 93/53 93 Room Air 03/30/17 09:35 98 03/30/17 09:12 97 18 100/65 94 Room Air 03/30/17 08:07 103 20 94/67 95 Room Air 03/30/17 07:09 107 22 107/78 98 Room Air 03/30/17 07:00 94 Room Air 03/30/17 06:44 36.5 107 16 118/89 95 Room Air 03/30/17 06:43 107 Physical Exam CONSTITUTIONAL: Patient is a chronically ill-appearing 61-year-old white female who is awake and alert and in moderate distress due to her stated complaint. She appears older than her stated age. EYES: Pupils equal, round, reactive to light and accommodation. EOMs intact without nystagmus. Sclera are anicteric. ENT: Tympanic membranes intact, with normal landmarks. External canals are clear. Oral and nasopharynx are clear. Mucous membranes are dry, no lesions, tongue and gums appear normal. NECK: No bruits auscultated. Supple without lymphadenopathy. No thyromegaly. No meningeal signs. Full active range of motion without discomfort. CARDIOVASCULAR: Tachycardic rate and rhythm, with normal S1 and S2, no murmur or gallop or rub is heard. No carotid bruits auscultated. No JVD. Peripheral pulses easy to palpable. RESPIRATORY: Breath sounds equal and clear to auscultation without wheezes, rales, or rhonchi heard. Full and equal chest expansion without accessory muscle use or retractions. GI: Bowel sounds are present. Multiple well-healed surgical scars are noted. Abdomen is soft and obese, nondistended and diffusely tender throughout. No guarding, rebound or rigidity. No pulsatile masses. No organomegaly. MUSCULOSKELETAL: Full range of motion of extremities x 4 with good strength. No cyanosis, edema, joint tenderness or swelling. No deformity. INTEGUMENTARY: No lesions or rash, normal skin turgor. NEUROLOGICAL: Alert, oriented, and cooperative. Cranial nerves, sensation and strength grossly intact. Pupils round, equal, and react to light, EOMs are full. LYMPH: No lymphadenopathy. Medical Decision & Procedures ER Provider Diagnostic Interpretation: ABDOMEN 2VIEW W/PA CHEST RTN CLINICAL HISTORY: 61 years-old Female presenting with ABD PAIN, N/V/D X 3 DAYS. TECHNIQUE: PA view of the chest and supine and left lateral decubitus views of the abdomen were obtained. COMPARISON: 02/14/2017. FINDINGS: Right internal jugular Mediport terminates near the confluence of the right internal jugular and right subclavian veins. Atherosclerosis of the aortic arch. Cardiac silhouette mildly prominent. Mildly low lung volumes with hypoventilatory changes. No focal opacity. No large effusion or pneumothorax. Postsurgical changes in the epigastrium near the gastroesophageal junction. Cholecystectomy clips noted. Suggestion of mild small bowel wall thickening. Nonobstructive bowel gas pattern. Mild stool burden. Allowing for bowel gas and stool, no calcifications to suggest nephrolithiasis. Partially visualized intramedullary nail fixation of the left femoral neck and proximal metadiaphysis. Extensive heterotopic ossification posttraumatic deformity of the left femoral neck. Degenerative changes in the lower lumbar spine. Osteopenia may be present. IMPRESSION: 1. Mildly low lung volumes with hypoventilatory changes. 2. No bowel obstruction or free air. 3. Suggestion of small bowel wall thickening, which could suggest enteritis. 4. No radiographic evidence of acute intra-abdominal pathology. Laboratory Results 03/30/17 07:58 Red Blood Count 3.79, Mean Corpuscular Volume 93.9, Mean Corpuscular Hemoglobin 30.3, Mean Corpuscular Hemoglobin Concent 32.3, Mean Platelet Volume 9.1, Neutrophils (%) (Auto) 81.0, Lymphocytes (%) (Auto) 11.8, Monocytes (%) (Auto) 6.1, Eosinophils (%) (Auto) 0.6, Basophils (%) (Auto) 0.2, Neutrophils # (Auto) 8.00, Lymphocytes # (Auto) 1.17, Monocytes # (Auto) 0.60, Eosinophils # (Auto) 0.06, Basophils # (Auto) 0.02 03/30/17 07:58 Test 03/30/17 07:45 03/30/17 07:58 03/30/17 09:29 Urine Color DK YELLOW Urine Appearance CLOUDY (CLEAR) Urine pH 6.0 (4.5-7.5) Urine Specific [place] 1.017 (1.000-1.030) Urine Protein TRACE (NEG) Urine Glucose (UA) NEG (NEG) Urine Ketones TRACE (NEG) Urine Occult Blood 3+ (NEG) Urine Nitrite POS (NEG) Urine Bilirubin NEG (NEG) Urine Urobilinogen POS (NEG) Urine Leukocyte Esterase MODERATE (NEG) Urine WBC (Auto) 10-30 /hpf (0-5) Urine RBC (Auto) 5-10 /hpf (0-4) Urine Hyaline Casts (Auto) 5-10 /lpf (0-5) Urine Epithelial Cells (Auto) 0-5 /lpf (0-5) Urine Bacteria (Auto) 4+ (NEG) Urine Yeast (Auto) (NONE PRSENT) White Blood Count 9.88 K/uL (4.8-10.8) Red Blood Count 3.79 M/uL (4.2-5.4) Hemoglobin 11.5 g/dL (12.0-16.0) Hematocrit 35.6 % (37-47) Mean Corpuscular Volume 93.9 fL (80-100) Mean Corpuscular Hemoglobin 30.3 pg (25-34) Mean Corpuscular Hemoglobin Concent 32.3 g/dl (32-36) Platelet Count 197 K/uL (130-400) Mean Platelet Volume 9.1 fL (7.4-10.4) Neutrophils (%) (Auto) 81.0 % Lymphocytes (%) (Auto) 11.8 % Monocytes (%) (Auto) 6.1 % Eosinophils (%) (Auto) 0.6 % Basophils (%) (Auto) 0.2 % Neutrophils # (Auto) 8.00 K/uL (1.4-6.5) Lymphocytes # (Auto) 1.17 K/uL (1.2-3.4) Monocytes # (Auto) 0.60 K/uL (0.11-0.59) Eosinophils # (Auto) 0.06 K/uL (0-0.5) Basophils # (Auto) 0.02 K/uL (0-0.2) RDW Standard Deviation 61.2 fL (36.4-46.3) RDW Coefficient of Variation 17.8 % (11.5-14.5) Immature Granulocyte % (Auto) 0.3 % Immature Granulocyte # (Auto) 0.03 K/uL (0.00-0.02) Prothrombin Time 11.4 SECONDS (9.0-12.0) Prothromb Time International Ratio 1.1 (0.9-1.1) Activated Partial Thromboplast Time 34.1 SECONDS (21.0-31.0) Partial Thromboplastin Ratio 1.3 Anion Gap 13.0 mmol/L (3-11) Est Creatinine Clear Calc Drug Dose 49.2 ml/min Estimated GFR () 62.9 Estimated GFR (Non- 54.3 BUN/Creatinine Ratio 16.0 (10-20) Calcium Level 8.3 mg/dl (8.5-10.1) Magnesium Level 2.2 mg/dl (1.8-2.4) Total Bilirubin 1.3 mg/dl (0.2-1) Aspartate Amino Transf (AST/SGOT) 33 U/L (15-37) Alanine Aminotransferase (ALT/SGPT) 15 U/L (12-78) Alkaline Phosphatase 146 U/L (45-117) Total Protein 6.5 gm/dl (6.4-8.2) Albumin 2.4 gm/dl (3.4-5.0) Globulin 4.1 gm/dl (2.5-4.0) Albumin/Globulin Ratio 0.6 (0.9-2) Lipase 46 U/L (73-393) Bedside Lactic Acid Venous 1.07 mmol/L (0.90-1.70) Medications Administered Medications (Trade) Dose Ordered Sig/Alek Route Start Time Stop Time Status Last Admin Dose Admin Prochlorperazine Edisylate (Compazine Inj) 10 mg NOW STAT IV 03/30/17 07:29 03/30/17 07:32 DC 03/30/17 08:02 10 MG Morphine Sulfate (MoRPHine SULFATE INJ) 4 mg NOW STAT IV 03/30/17 07:29 03/30/17 07:32 DC 03/30/17 08:03 4 MG Piperacillin Sod/ Tazobactam Sod (Zosyn Iv) 4.5 gm NOW STAT IV 03/30/17 08:38 03/30/17 08:40 DC 03/30/17 09:33 4.5 GM Sodium Chloride 1,000 ml @ 999 mls/hr Q1H1M STAT IV 03/30/17 08:38 03/30/17 09:38 DC 03/30/17 08:54 999 MLS/HR Sodium Chloride 1,000 ml @ 250 mls/hr Q4H STAT IV 03/30/17 08:38 03/30/17 12:37 DC 03/30/17 09:33 250 MLS/HR Morphine Sulfate (MoRPHine SULFATE INJ) 4 mg NOW STAT IV 03/30/17 10:47 03/30/17 10:48 DC 03/30/17 11:00 4 MG Potassium Chloride (Klor-Con M10) 40 meq NOW STAT PO 03/30/17 10:47 03/30/17 10:48 DC 03/30/17 10:59 40 MEQ ED Course The patient was seen and evaluated as above. Her old records were reviewed, including her most recent hospitalization. History and physical exam were performed and patient was reviewed with attending physician who agreed with the ED workup. Her port was accessed, and she was hydrated with normal saline solution. She was given 2 separate boluses of a liter, for a total of 2000cc, then 250cc/hr. she was medicated with morphine 4 mg and Compazine 10 mg IV. She was straight cathed for a urine sample. CBC with differential, coags, mag, CMP, lipase and blood cultures were drawn. Urine was sent for urinalysis and culture, and stool studies were also ordered. She was placed on a riprap worker. Acute abdominal series was obtained. Patient's family presented with her scheduled dose of Lovenox which they self administered. Patient's laboratory studies noted a white count of 9800, H&H 11.5 and 35.6, platelet count 197,000, INR 1.1. Electrolytes revealed a sodium of 135, she is hypokalemic with potassium of 2.6, chloride 92, carbon dioxide 30, BUN 18 and creatinine 1.1. Her lactic acid is normal at 1.07. She has slight nonspecific elevation of her total bilirubin and alkaline phosphatase, remainder of her transaminases are normal. Lipase is within normal limits. Cath urine is concerning for infection, with blood, nitrate, esterase and 4+ bacteria. Acute abdominal series is consistent with enteritis. There are no acute pulmonary findings noted, and no evidence for bowel obstruction or free air. Results of the patient's laboratory studies were reviewed with attending physician who also independently evaluated the patient. She was given Zosyn 4.5 g IV empirically. She was given potassium 40 mEq orally. She requested something additional for pain and was given a second dose of morphine 4 mg IV. She was monitored closely, and was borderline tachycardic and hypotensive, however this did improve with IV fluid boluses. At this time she is stable and does not appear to be septic. Laboratory and diagnostic imaging studies were reviewed with family members. Given the multiple medical issues that she is presently dealing with, and her prior history, it was felt that further care in the hospital was advised. Patient was reviewed with the marketing traffic manager, and discussed with Holly Arellano PA-C, with the [facility] service. Medical Decision See ED Course. Medication Reconcilliation Current Medication List: was personally reviewed by me Blood Pressure Screening Patient's blood pressure: Low blood pressure Blood pressure disposition: Referred to PCP Impression Primary Impression: UTI (urinary tract infection) Additional Impressions: Nausea, vomiting and diarrhea Hypokalemia Departure Information Referrals Pablo Holland D.OCedric (PCP) Patient Instructions My [facility] Problem Qualifiers
[2017-03-30] MEDS ORDERED: DRONABINOL 2.5 MG CAP PO SCH (16:45)
[2017-03-30] MEDS ORDERED: PROCHLORPERAZINE MALEATE 10 MG TAB PO PRN (18:00)
[2017-03-30 18:58] VITALS: BP 109/65; PULSE 93; TEMP 37.2; O2SAT 93
[2017-03-30] MEDS: ATORVASTATIN 40 MG TAB PO SCH (21:18)
[2017-03-30] MEDS: GABAPENTIN 300 MG CAP PO SCH (21:18)
[2017-03-30] MEDS: SERTRALINE HCL 100 MG TAB PO SCH (21:18)
[2017-03-30] MEDS: ENOXAPARIN 60 MG/0.6 ML SYR SQ SCH (22:10)
--- NOTE | 2017-03-30 22:29 | DIAGNOSTIC IMAGING REPORT ---
BRAIN WITHOUT CONTRAST HISTORY: 61 years-old Female altered mental status; r/o mets; r/o cva acute altered mental status with weakness and urinary tract infection. History of uterine cancer COMPARISON: Head CT of same day TECHNIQUE: Multiplanar multisequence MRI of the brain was obtained without contrast. FINDINGS: There is no restricted diffusion to suggest acute infarction. Midline structures including the corpus callosum, brainstem, optic chiasm, infundibulum, pituitary and pineal glands are unremarkable the sagittal T1 images. No cerebellar tonsillar herniation. Degenerative changes noted within the imaged cervical spine. The coronal T2/FLAIR images are moderately motion degraded. There is no acute intracranial hemorrhage, midline shift, abnormal extra-axial collections or hydrocephalus identified. Moderate patchy and confluent areas of T2/FLAIR prolongation seen within the subcortical, deep and periventricular white matter of the cerebral hemispheres bilaterally. Mild cerebral atrophy. The major flow voids at the level of the skull base appear patent. Bilateral mastoid effusions, left greater than right. Minimal ethmoid sinus disease. Scalp, calvarium and soft tissues are unremarkable. Orbits are within normal limits. IMPRESSION: 1. Motion degraded exam without acute intracranial abnormality identified. No acute infarction. 2. Mild atrophy with moderate patchy and confluent areas of T2/FLAIR prolongation seen within the subcortical, deep and periventricular white matter of the cerebral hemispheres bilaterally suggesting chronic microvascular ischemic changes. 3. Bilateral mastoid effusions, left greater than right. The above report was generated using voice recognition software. It may contain grammatical, syntax or spelling errors. Electronically signed by: Placido Bar M.D. 03/30/2017 10:28 PM Dictated Date/Time: 03/30/2017 10:20 PM
[2017-03-30 23:30] VITALS: BP 96/61; PULSE 91; TEMP 36.8; O2SAT 95
[2017-03-31] MEDS: SODIUM CHLORIDE 0.9% 1000ML 1,000 ML IV SCH (02:00)
[2017-03-31 02:43] VITALS: BP 109/64; PULSE 92; TEMP 37; O2SAT 96
[2017-03-31] MEDS ORDERED: LEVOTHYROXINE 100 MCG TAB PO SCH (06:00)
[2017-03-31 06:28] LABS: INR 1.1 (0.9-1.1)
[2017-03-31 06:54] LABS: HEMATOCRIT 27.6 % (37-47); HEMOGLOBIN 8.5 g/dL (12.0-16.0); MEAN CELL VOLUME 96.2 fL (80-100); MEAN CORPUSCULAR HEMOGLOBIN 29.6 pg (25-34); MEAN CORPUSCULAR HGB CONC 30.8 g/dl (32-36); MEAN PLATELET VOLUME 9.2 fL (7.4-10.4); PLATELET COUNT 150 K/uL (130-400); RED CELL DISTRIBUTION WIDTH CV 17.7 % (11.5-14.5); RED CELL DISTRIBUTION WIDTH SD 62.2 fL (36.4-46.3); WHITE BLOOD COUNT 5.37 K/uL (4.8-10.8)
[2017-03-31 06:59] LABS: CALCIUM 6.8 mg/dl (8.5-10.1); CREATININE 0.73 mg/dl (0.60-1.20); POTASSIUM 2.8 mmol/L (3.5-5.1)
[2017-03-31] MEDS: POTASSIUM CHLORIDE 20 MEQ TABCR PO STA ×2 (08:04→10:11)
[2017-03-31] MEDS: POTASSIUM CHLR 10 MEQ / WTR 10 MEQ in PREMIXED WATER 100 ML IV SCH ×2 (08:04→11:11)
[2017-03-31] MEDS: PIPERACILL/TAZOBAC IV 3.375 GM in DEXTROSE 5% 100ML IV SCH ×3 (08:05→23:57)
[2017-03-31] MEDS: OXYBUTYNIN CHLORIDE 5 MG TABCR PO SCH (08:06)
[2017-03-31] MEDS: POTASSIUM CHLORIDE 20 MEQ TABCR PO SCH ×3 (08:06→20:26)
[2017-03-31] MEDS: GABAPENTIN 300 MG CAP PO SCH ×3 (08:07→20:27)
[2017-03-31] MEDS: METOPROLOL SUCC 50MG EXT REL TAB PO SCH (08:07)
[2017-03-31] MEDS: CHOLECALCIFEROL 1000 INTER.UNIT TAB PO SCH (08:08)
[2017-03-31] MEDS: ENOXAPARIN 60 MG/0.6 ML SYR SQ SCH ×2 (08:09→20:28)
[2017-03-31 08:13] VITALS: BP 107/65; PULSE 65; TEMP 36.9; O2SAT 96
[2017-03-31] MEDS ORDERED: ZINC SULFATE 220 MG CAP PO SCH (09:00)
[2017-03-31] MEDS ORDERED: IRON SUCROSE INJ 100 MG in SODIUM CHLORIDE 0.9% 100ML 100 ML IV SCH (09:00)
[2017-03-31] MEDS ORDERED: CYANOCOBALAMIN 1000 MCG/ML VIAL IM ONE (09:00)
[2017-03-31] MEDS ORDERED: OPTIRAY 320 IV PRN (09:30)
--- NOTE | 2017-03-31 09:46 | Progress Note ---
Subjective Date of Service: Mar 31, 2017. Subjective Pt evaluation today including: conversation w/ patient, physical exam, lab review, review of studies, review of inpatient medication list Saw/examined the patient in room 201 She is in mild to moderate distress secondary to persistent abdominal pain w/ nausea/vomiting. She has a bucket in front of her which is she spitting up in. Pain is localized in the epigastric region. States she has decreased and poor appetite due to the pain/nausea/vomiting. There is some motor/psychomotor slowing; improvement from admission. Problem List Medical Problems: (1) Anemia Status: Chronic (2) B12 deficiency Status: Chronic (3) Benign hypertension Status: Chronic (4) Depression Status: Chronic (5) Diabetes mellitus type 2 Status: Chronic (6) Dyslipidemia Status: Chronic (7) Endometrial cancer Status: Chronic (8) Factor V Leiden mutation Status: Chronic (9) Hypokalemia Status: Acute (10) Hypokalemia Status: Acute (11) Hypothyroidism Status: Chronic (12) Nausea vomiting and diarrhea Status: Acute (13) Nausea, vomiting and diarrhea Status: Acute (14) UTI (urinary tract infection) Status: Acute Review of Systems Constitutional: + weakness, + fatigue, No fever, No chills Respiratory: No cough, No wheezing, No shortness of breath, No dyspnea on exertion, No dyspnea at rest, No hemoptysis Cardiac: No chest pain, No edema, No palpitations Abdomen: + see HPI, + pain, + nausea, + vomiting, + diarrhea, No constipation, No GI bleeding Heme: No abnormal bleeding/bruising Medications Current Inpatient Medications Medications (Trade) Dose Ordered Sig/Alek Route Start Time Stop Time Status Last Admin Dose Admin Ondansetron HCl (Zofran Inj) 4 mg Q6H PRN IV 03/30/17 12:00 04/29/17 11:59 03/31/17 08:43 4 MG Miscellaneous Information (Consult) 1 ea UD PRN N/A 03/30/17 12:45 04/29/17 12:44 Acetaminophen (Tylenol Tab) 1,000 mg Q6H PRN PO 03/30/17 12:30 04/29/17 12:29 Atorvastatin Calcium (Lipitor Tab) 40 mg HS PO 03/30/17 21:00 04/29/17 20:59 03/30/17 21:18 40 MG Cholecalciferol (Vitamin D Tab) 4,000 inter.unit DAILY PO 03/31/17 09:00 04/30/17 08:59 03/31/17 08:08 4,000 INTER.UNIT Enoxaparin Sodium (Lovenox Inj) 60 mg BID SQ 03/30/17 21:00 04/29/17 20:59 03/31/17 08:09 60 MG Gabapentin (Neurontin Cap) 300 mg TID PO 03/30/17 21:00 04/29/17 20:59 03/31/17 08:07 300 MG Lorazepam (Ativan Tab) 0.5 mg BID PRN PO 03/30/17 12:30 04/29/17 12:29 Metoprolol Succinate (Toprol Xl Tab) 50 mg QAM PO 03/31/17 09:00 04/30/17 08:59 03/31/17 08:07 50 MG Oxybutynin Chloride (Ditropan-Xl Tab) 10 mg QAM PO 03/31/17 09:00 04/30/17 08:59 03/31/17 08:06 10 MG Prochlorperazine Maleate (Compazine Tab) 10 mg Q6H PRN PO 03/30/17 18:00 04/29/17 17:59 Sertraline HCl (Zoloft Tab) 200 mg HS PO 03/30/17 21:00 04/29/17 20:59 03/30/17 21:18 200 MG Tramadol HCl (Ultram Tab) 50 mg Q6H PRN PO 03/30/17 12:30 04/29/17 12:29 03/30/17 15:43 50 MG Trazodone HCl (Desyrel Tab) 100 mg HS PRN PO 03/30/17 12:30 04/29/17 12:29 Zinc Sulfate (Zinc Sulfate Cap) 220 mg QAM PO 03/31/17 09:00 04/30/17 08:59 03/31/17 08:09 220 MG Piperacillin Sod/ Tazobactam Sod 3.375 gm/Dextrose 115 ml @ 28.75 mls/ hr Q8H IV 03/30/17 16:00 04/09/17 15:59 03/31/17 08:05 28.75 MLS/HR Vancomycin HCl 1000 mg/Sodium Chloride 270 ml @ 125 mls/hr Q22H IV 03/31/17 14:00 04/10/17 13:59 Miscellaneous Information (Consult) 1 ea UD PRN N/A 03/30/17 16:15 04/29/17 16:14 Levothyroxine Sodium (Synthroid Tab) 75 mcg DAILYBB PO 04/01/17 06:00 04/30/17 06:59 Potassium Chloride 10 meq/ Prmx 100 ml @ 100 mls/hr Q1H IV 03/31/17 07:45 03/31/17 09:44 03/31/17 08:04 100 MLS/HR Potassium Chloride (Klor-Con Tab) 20 meq BID PO 03/31/17 09:00 04/30/17 08:59 03/31/17 08:06 20 MEQ Iron Sucrose 100 mg/Sodium Chloride 105 ml @ 210 mls/hr 0900 IV 03/31/17 09:00 03/31/17 09:29 Objective Vital Signs Date Time Temp Pulse Resp B/P (MAP) Pulse Ox O2 Delivery O2 Flow Rate FiO2 03/31/17 08:13 36.9 65 18 107/65 (79) 96 03/31/17 04:00 Room Air 03/31/17 02:43 37.0 92 18 109/64 (79) 96 Room Air 03/31/17 00:01 Room Air 03/30/17 23:30 36.8 91 18 96/61 (73) 95 Room Air 03/30/17 20:00 Room Air 03/30/17 18:58 37.2 93 16 109/65 (80) 93 Room Air 03/30/17 15:01 36.6 97 18 108/67 (81) 99 Room Air 03/30/17 14:20 94 18 111/64 94 Room Air 03/30/17 13:11 98 18 129/68 99 Room Air 03/30/17 13:07 96 03/30/17 12:13 98 16 129/69 95 Room Air 03/30/17 12:10 95 Room Air 03/30/17 11:06 98 18 98/55 97 Room Air 03/30/17 10:21 102 22 93/53 93 Room Air 03/30/17 09:35 98 03/30/17 09:12 97 18 100/65 94 Room Air Physical Exam General Appearance: + moderate distress (secondary to abdominal pain), + pertinent finding (+weakness, +fatigue) Respiratory/Chest: chest non-tender, lungs clear, normal breath sounds, no respiratory distress, no accessory muscle use Cardiovascular: regular rate, rhythm, no edema, no murmur Abdomen: normal bowel sounds, soft, + tenderness (epigastric tenderness), + pertinent finding (+scarring noted from previous surgeries) Extremities: normal inspection, no pedal edema Neurologic/Psychiatric: alert, + motor weakness Laboratory Results Last 24 Hours Test 03/30/17 09:29 03/30/17 16:09 03/30/17 20:24 03/31/17 05:49 Bedside Lactic Acid Venous 1.07 mmol/L Bedside Glucose 114 mg/dl 109 mg/dl White Blood Count 5.37 K/uL Red Blood Count 2.87 M/uL Hemoglobin 8.5 g/dL Hematocrit 27.6 % Mean Corpuscular Volume 96.2 fL Mean Corpuscular Hemoglobin 29.6 pg Mean Corpuscular Hemoglobin Concent 30.8 g/dl RDW Standard Deviation 62.2 fL RDW Coefficient of Variation 17.7 % Platelet Count 150 K/uL Mean Platelet Volume 9.2 fL Prothrombin Time 11.2 SECONDS Prothromb Time International Ratio 1.1 Sodium Level 138 mmol/L Potassium Level 2.8 mmol/L Chloride Level 104 mmol/L Carbon Dioxide Level 25 mmol/L Anion Gap 9.0 mmol/L Blood Urea Nitrogen 11 mg/dl Creatinine 0.73 mg/dl Est Creatinine Clear Calc Drug Dose 75.1 ml/min Estimated GFR () 104.5 Estimated GFR (Non- 90.1 BUN/Creatinine Ratio 14.8 Random Glucose 90 mg/dl Calcium Level 6.8 mg/dl Test 03/31/17 07:18 Bedside Glucose 95 mg/dl Assessment and Plan This is a 61 year old female with a PMH of uterine CA s/p chemotherapy (last dose in December 2016), Factor V Leiden mutation and recent RUE DVT, HTN, depression, DM2, hypothyroidism, iron deficiency anemia, gastric bypass status - recent admission to [facility] with hypotension, respiratory failure requiring ICU admission with intubation and mechanical ventilation - presents for nausea/ vomiting/diarrhea. Metabolic Encephalopathy secondary to UTI 03/31 gram positive cocci on urine culture blood cultures and stool culture still pending continue Vanc + Zosyn for now clinically improving; ordered PT/OT 03/30 patient has a UTI, slightly confused and altered recently admitted to [facility] as well as [facility] will start Vancomycin + Zosyn; to cover possible urine infection as well as GI infection cultures - gram positive cocci on urine culture will stop Marinol for now Viral Gastroenteritis abdominal radiograph suggests nonspecific enteritis patient continues to have abdominal pain in the epigastric region unable to tolerate PO diet, continues to have nausea/vomiting hypochloremic hypokalemia persists plan to obtain an abdominal CT with IV and oral contrast for further evaluation ; concern for gastric outlet obstruction vs. metastatic disease Multifactorial Anemia Iron Deficiency, B12 Deficiency, Chronic Disease patient with long-standing anemia, likely from her cancer as well as bariatric surgery Hgb on admission was 11.5, now down to 8.5; the initial number was likely falsely elevated due to dehydration will give a dose of IV Venofer now; she has been receiving this as outpatient; will give this x3 days will give an IM injection of B12, which she has also been receiving as an outpatient monitor H/H and transfuse PRN Hypothyroidism TSH is low will decrease Synthroid dose from 100mcg to 75mcg recheck TSH as outpatient in 6 weeks Uterine CA no longer receiving adjuvant chemotherapy due to mental status/diarrhea, etc. Brain MRI 03/30 - no acute process noted Sinus Rhythm with Significant Artifact continue to monitor in tele appreciate cardiology input, initially presumed to be atrial flutter, but more likely significant artifact continue Toprol XL Recent RUE DVT continue Lovenox 60mg BID FULL CODE as per patient, will need to discuss with daughter
[2017-03-31 11:39] VITALS: BP 99/66; PULSE 86; TEMP 36.9; O2SAT 97
[2017-03-31] MEDS: POTASSIUM CHLR 20 MEQ / WTR 20 MEQ in PREMIXED WATER 100 ML IV SCH ×2 (12:32→13:29)
--- NOTE | 2017-03-31 13:20 | ECHOCARDIOGRAM REPORT ---
*NOTICE TO RECEIVING DEMOCRAT AGENCY This information is strictly Confidential and protected under [place] law. [place] law prohibits you from making any further disclosure of this information unless further disclosure is expressly permitted by the written consent of the person to whom it pertains or is authorized by law. A general authorization for the release of medical or other information is not sufficient for this purpose. Hospital accepts no responsibility if the information is made available to any other person, INCLUDING THE PATIENT. Interpretation Summary * Name: TACOS AGUILERA Study Date: 03/31/2017 08:27 AM BP: 107/65 mmHg * Patient Location: C.2E\S\E201\S\1 HR: 93 * : 1955 (M/d/yyyy) Gender: Female Height: 60 in * Age: 61 yrs Ethnicity: CA Weight: 164 lb * Ordering Physician: Evita Escalante * Referring Physician: Self, Referred * Performed By: Gia Soriano RCS * * Reason For Study: A-FLUTTER * BSA: 1.7 m2 * The study was technically difficult. * Compared to prior study, there is no significant change. * -- Conclusions -- * Ejection Fraction = 60-65%. * Grade I diastolic dysfunction, (abnormal relaxation pattern). * The left ventricular wall motion is normal. * There is no pericardial effusion. * No significant valvular pathology. Procedure Details * A complete two-dimensional transthoracic echocardiogram was performed (2D, M-mode, Doppler and color flow Doppler). * The study was technically difficult. * There were technical limitations due to patient'spoor positioning * A contrast injection of Definity was performed to improve assessment of LV function. * Contrast was injected into an intravenous site in the right arm. * One vial of Definity ultrasound contrast was diluted in normal saline to a total volume of 10 ml. A total of '2' ml of solution was administered during imaging. * Lot # [id number] of Definity utilized for procedure. * Expiration date MAR 06. * The attending nurse who injected the contrast agent was GEOVANNI SANDHU. Left Ventricle * The left ventricle is normal in size. * There is no thrombus. * There is normal left ventricular wall thickness. * Left ventricular systolic function is normal. * Ejection Fraction = 60-65%. * The left ventricular wall motion is normal. Right Ventricle * The right ventricle is normal size. * The right ventricular systolic function is normal as assessed by tricuspid annular plane systolic excursion (TAPSE) (normal >1.5 cm). Atria * The left atrial size is normal. * Right atrial size is normal. * There is no evidence of atrial septal defect, but resolution does not allow assessment for a patent foramen ovale. Mitral Valve * The mitral valve is normal. * There is no mitral valve stenosis. * Significant mitral regurgitation is absent. Tricuspid Valve * The tricuspid valve is normal. * There is no tricuspid stenosis. * There is mild tricuspid regurgitation. Aortic Valve * The aortic valve is trileaflet. * Aortic stenosis is absent. * There is no significant aortic regurgitation. Pulmonic Valve * The pulmonary valve is not well seen, but the Doppler examination is normal without significant regurgitation or stenosis. Great Vessels * The aortic root and proximal ascending aorta are normal sized. Pericardium/Pleural * There is no pericardial effusion. Great Vessels * Normal inferior vena cava diameter and respiratory variation suggests normal central venous pressure. Left Ventricular Diastolic Function * Grade I diastolic dysfunction, (abnormal relaxation pattern). MMode 2D Measurements and Calculations IVSd 1.5 cm IVSs 2.1 cm LVIDd 3.5 cm LVIDs 2.0 cm LVPWd 1.5 cm LVPWs 1.8 cm IVS/LVPW 0.97 FS 42.1 % EDV(Teich) 50.7 ml ESV(Teich) 13.1 ml EF(Teich) 74.2 % EDV(cubed) 42.7 ml ESV(cubed) 8.3 ml EF(cubed) 80.6 % % IVS thick 44.7 % % LVPW thick 22.7 % LV mass(C)d 187.6 grams LV mass(C)dI 109.3 grams/m\S\2 LV mass(C)s 169.8 grams LV mass(C)sI 99.0 grams/m\S\2 SV(Teich) 37.6 ml SI(Teich) 21.9 ml/m\S\2 SV(cubed) 34.4 ml SI(cubed) 20.1 ml/m\S\2 Ao root diam 3.3 cm Ao root area 8.3 cm\S\2 ACS 2.1 cm LA dimension 3.7 cm LA/Ao 1.1 LVOT diam 2.0 cm LVOT area 3.1 cm\S\2 LVAd ap4 26.0 cm\S\2 LVLd ap4 7.3 cm EDV(MOD-sp4) 75.4 ml EDV(sp4-el) 78.0 ml LVAs ap4 13.0 cm\S\2 LVLs ap4 5.7 cm ESV(MOD-sp4) 24.4 ml ESV(sp4-el) 25.3 ml EF(MOD-sp4) 67.6 % EF(sp4-el) 67.6 % LVAd ap2 24.7 cm\S\2 LVLd ap2 7.7 cm EDV(MOD-sp2) 65.1 ml EDV(sp2-el) 67.4 ml LVAs ap2 15.9 cm\S\2 LVLs ap2 7.2 cm ESV(MOD-sp2) 30.3 ml ESV(sp2-el) 29.8 ml EF(MOD-sp2) 53.4 % EF(sp2-el) 55.7 % LVLd %diff 4.5 % EDV(MOD-bp) 72.1 ml LVLs %diff 21.3 % ESV(MOD-bp) 30.1 ml EF(MOD-bp) 58.2 % SV(MOD-sp4) 51.0 ml SI(MOD-sp4) 29.7 ml/m\S\2 SV(MOD-sp2) 34.7 ml SI(MOD-sp2) 20.3 ml/m\S\2 SV(MOD-bp) 42.0 ml SI(MOD-bp) 24.5 ml/m\S\2 SV(sp4-el) 52.7 ml SI(sp4-el) 30.7 ml/m\S\2 SV(sp2-el) 37.5 ml SI(sp2-el) 21.9 ml/m\S\2 Doppler Measurements and Calculations Ao V2 max 115.5 cm/sec Ao max PG 5.3 mmHg Ao max PG (full) 1.5 mmHg JUAN(V,A) 2.6 cm\S\2 JUAN(V,D) 2.6 cm\S\2 LV V1 max PG 3.8 mmHg LV V1 max 97.7 cm/sec PA V2 max 91.2 cm/sec PA max PG 3.3 mmHg
[2017-03-31] MEDS: VANCOMYCIN INJ 1,000 MG in SODIUM CHLORIDE 0.9% 250ML 250 ML IV SCH (14:24)
[2017-03-31 15:14] VITALS: BP 82/57; PULSE 83; TEMP 36.8; O2SAT 95
--- NOTE | 2017-03-31 20:25 | DIAGNOSTIC IMAGING REPORT ---
ABD/PELVIS IV CONTRAST ONLY CLINICAL HISTORY: 61 years-old Female presenting with abdominal pain. TECHNIQUE: Multidetector CT of the abdomen and pelvis was performed after the administration of intravenous contrast. IV contrast: None. A dose lowering technique was used consistent with the principles of ALARA (as low as reasonably achievable). COMPARISON: 01/30/2017. CT DOSE (mGy.cm): The estimated cumulative dose is 863.44 mGy.cm. FINDINGS: Drawer Waxer topogram: Cholecystectomy clips and left femoral intramedullary nail fixation. Lung bases: Scattered bandlike opacities at the lung bases, which may represent extensive atelectasis. Mosaic attenuation could suggest small airways disease. Multichamber enlargement of the heart. Coronary artery calcification. No pericardial or pleural effusion. Liver: Expansion of the fat within the fissure for the ligamentum teres and mildly macronodular appearance of the liver. Hepatic steatosis suggested. No focal lesion. Patent hepatic vasculature. Biliary: Mild biliary ductal prominence likely a reservoir effect in the post cholecystectomy state. Gallbladder surgically absent. Pancreas: Moderate parenchymal atrophy. Spleen: Normal. Adrenal glands: Normal. Kidneys and ureters: Decreased perinephric fat stranding. Normal enhancement pattern of the renal parenchyma. No nephrolithiasis. No hydronephrosis. Normal ureters. Bladder: Normal. Pelvic organs: Focal hypodensity in the uterine fundus is nonspecific and possibly due to underlying fibroid (series 3 image 376). Normal ovaries. Bowel: Extensive wall thickening of the anus and rectum with perianal and mesorectal fat infiltration. Intramural fat deposition noted in ascending colon and cecum, which may indicate chronic inflammatory change. The appendix is normal. No bowel obstruction. Postsurgical changes of right retrocolic Andre-en-Y gastric bypass. Patent distal small bowel anastomosis. Peritoneal cavity: No free fluid or intraperitoneal gas. Trace extraperitoneal free fluid in the presacral space. Lymph nodes: No enlarged lymph nodes in the abdomen or pelvis. Vasculature: Atherosclerosis of the normal caliber abdominal aorta. IVC patent. Abdominal wall: Focal infiltration and fluid tracking from the cutis of the right mid anterior abdominal wall to the subjacent abdominal wall musculature. This does not clearly extend intraperitoneally. Musculoskeletal: Degenerative changes of the spine. Intramedullary nail fixation in the left femoral neck and proximal metadiaphysis. IMPRESSION: 1. Extensive wall thickening of the lower rectum and anus with surrounding inflammatory change. This is most concerning for proctitis, likely infectious. However, this should be followed to resolution with consideration for follow-up direct visualization to exclude underlying neoplasm. No lymphadenopathy. 2. Chronic region of scarring in the right anterior abdominal wall with focal fluid. This may represent a chronic sinus tract. No clear intraperitoneal extension to suggest fistula. 3. Postsurgical changes of retrocolic Andre-en-Y gastric bypass. No bowel obstruction. 4. Hepatic steatosis suggested. Electronically signed by: Devaughn Ozuna M.D. 03/31/2017 8:24 PM Dictated Date/Time: 03/31/2017 8:13 PM
[2017-03-31] MEDS: ATORVASTATIN 40 MG TAB PO SCH (20:27)
[2017-03-31] MEDS: SERTRALINE HCL 100 MG TAB PO SCH (20:27)
[2017-03-31] MEDS: TRAZODONE HCL 100 MG TAB PO PRN (20:28)
[2017-03-31 21:44] VITALS: BP 103/65; PULSE 80; TEMP 36.8; O2SAT 97
[2017-03-31 23:30] VITALS: BP 100/64; PULSE 81; TEMP 37.1; O2SAT 95
[2017-03-31] MEDS ORDERED: CALCIUM CARBONATE 500 MG CHEWABLE PO ONE (23:52)
[2017-04-01] VITALS (10 sets, daily range): BP systolic 94–121; BP diastolic 60–72; PULSE 66–74; TEMP 36.3–37.2; O2SAT 94–100; Ht 152.4 cm; Wt 76.2 kg
[2017-04-01] MEDS ORDERED: CALCIUM CARBONATE 500 MG CHEWABLE PO PRN
[2017-04-01] MEDS: LEVOTHYROXINE 75 MCG TAB PO SCH (05:40)
[2017-04-01 05:53] LABS: HEMATOCRIT 29.1 % (37-47); MEAN CELL VOLUME 97.7 fL (80-100); MEAN CORPUSCULAR HEMOGLOBIN 30.2 pg (25-34); MEAN CORPUSCULAR HGB CONC 30.9 g/dl (32-36); PLATELET COUNT 145 K/uL (130-400); RED CELL DISTRIBUTION WIDTH CV 17.7 % (11.5-14.5); RED CELL DISTRIBUTION WIDTH SD 63.6 fL (36.4-46.3); WHITE BLOOD COUNT 3.29 K/uL (4.8-10.8)
[2017-04-01 06:53] LABS: CALCIUM 7.1 mg/dl (8.5-10.1); CREATININE 0.66 mg/dl (0.60-1.20); POTASSIUM 3.6 mmol/L (3.5-5.1)
[2017-04-01] MEDS: PIPERACILL/TAZOBAC IV 3.375 GM in DEXTROSE 5% 100ML IV SCH ×2 (09:17→16:01)
[2017-04-01] MEDS: METOPROLOL SUCC 50MG EXT REL TAB PO SCH (09:18)
[2017-04-01] MEDS: OXYBUTYNIN CHLORIDE 5 MG TABCR PO SCH (09:18)
[2017-04-01] MEDS: GABAPENTIN 300 MG CAP PO SCH ×3 (09:18→20:55)
[2017-04-01] MEDS: POTASSIUM CHLORIDE 20 MEQ TABCR PO SCH ×2 (09:18→20:00)
[2017-04-01] MEDS: ENOXAPARIN 60 MG/0.6 ML SYR SQ SCH ×2 (09:19→20:56)
[2017-04-01] MEDS: CHOLECALCIFEROL 1000 INTER.UNIT TAB PO SCH (09:19)
--- NOTE | 2017-04-01 09:22 | Gastrointestinal Consultation ---
Gastrointestinal Consultation Date of Consultation: Apr 01, 2017 Reason for Consultation: nausea, vomiting, radiation proctitis? History of Present Illness Patient is a 61 year old female, PM significant for endometrial cancer w/ chemo initiated in December 2016 and radiation, obesity history of RYGB with others listed below who presented through the ED for nausea, vomiting, diarrhea and abdominal pian. Pt was seen and evaluated, chart reviewed. Of note, she was recently admitted to [facility] for septic shock, e.coli pyelo w/ acute respiratory failure requiring intubation. New DVT on Lovenox. Pt tells me this AM her symptoms are 100% resolved. She notes about 4 days ago, had lower abdominal pain and aching associated with nausea. Developed loose stools numerous episodes daily. No black or bloody stools. Later developed vomiting, no hematemesis or coffee ground emesis. She tells me yesterday, her symptoms started to resolve. No longer have any abdominal pain, nausea or vomiting. She did have a loose stool this AM. She typically has formed stools. No black or bloody stools. Otherwise feels stable. She denies fever, chills, CP, SOB. CT ABD/Pelvis: Extensive wall thickening of the lower rectum and anus with surroundinginflammatory change. This is most concerning for proctitis, likely infectious.However, this should be followed to resolution with consideration for follow-updirect visualization to exclude underlying neoplasm. No lymphadenopathy. Chronic region of scarring in the right anterior abdominal wall with focalfluid. This may represent a chronic sinus tract. No clear intraperitonealextension to suggest fistula. Postsurgical changes of retrocolic Andre-en-Y gastric bypass. No bowelobstruction. Hepatic steatosis suggested. Colonoscopy 07/01: Preparation of the colon was poor.One 4 mm polyp in the cecum. Resected and retrieved. One 7 mm polyp in the transverse colon. Resected and retrieved. Stool from splenic flexure to cecum.The distal rectum and anal verge are normal onretroflexion view. Past Medical/Surgical History Medical Problems: (1) Anemia Status: Chronic (2) B12 deficiency Status: Chronic (3) Benign hypertension Status: Chronic (4) Depression Status: Chronic (5) Diabetes mellitus type 2 Status: Chronic (6) Dyslipidemia Status: Chronic (7) Endometrial cancer Status: Chronic (8) Factor V Leiden mutation Status: Chronic (9) Hypokalemia Status: Acute (10) Hypokalemia Status: Acute (11) Hypothyroidism Status: Chronic (12) Nausea vomiting and diarrhea Status: Acute (13) Nausea, vomiting and diarrhea Status: Acute (14) UTI (urinary tract infection) Status: Acute Past Medical History: uterine CA, BENNY, gastric bypass, Factor V Leiden mutation, DVT, HTN, depression , T2DM, hypothyroidism, depression Past Surgical History: cholecystectomy, gastric bypass, total hip, bilateral knee arthroplasty Family History Diabetes mellitus SISTER FH: CAD (coronary artery disease) MOTHER ([place]) FH: cancer MOTHER (endometrial CA) SISTER (endometrial CA or ovarian CA) Social History Smoking Status: Never Smoker Alcohol Use: none Drug Use: none Marital Status: Occupation Status: disabled Allergies Coded Allergies: No Known Allergies (Verified , 03/30/17) Current Medications Home Meds and Scripts Medications Dose Route/Sig Max Daily Dose Days Date Category Dose Instructions [place] 5MG/325MG (Acetaminophen/Hydrocodone Bitart) Tab 1 Tab PO Q4 PRN 30 03/30/17 Reported PRN PAIN Lovenox (Enoxaparin Sodium) 60 Mg/0.6 Ml Inj 60 Mg INJ BID 03/30/17 Reported Dronabinol 2.5 Mg Cap 5 Mg PO TIDM 30 02/13/17 Rx Zinc Sulfate 220 Mg Cap 220 Mg PO QAM 30 02/13/17 Rx Ultram (Tramadol HCl) 50 Mg Tab 50 Mg PO Q6H PRN 02/13/17 Rx Ativan (Lorazepam) 0.5 Mg Tab 0.5 Mg PO BID PRN 02/13/17 Rx Trazodone (Trazodone HCl) 100 Mg Tab 100 Mg PO HS PRN 02/13/17 Rx Compazine (Prochlorperazine Maleate) 10 Mg Tab 1 Tab PO Q6 PRN 7 01/29/17 Reported Zofran (Ondansetron Hcl) 8 Mg Tab 8 Mg PO Q8 PRN 01/29/17 Reported Tylenol (Acetaminophen) 500 Mg Tab 1,000 Mg PO Q6 PRN 01/29/17 Reported Toprol-Xl (Metoprolol Succinate) 50 Mg Tabcr 50 Mg PO QAM 01/08/17 Reported Synthroid (Levothyroxine Sodium) 100 Mcg Tab 100 Mcg PO DAILY 01/08/17 Reported Zoloft (Sertraline HCl) 100 Mg Tab 200 Mg PO HS 12/25/16 Reported Lipitor (Atorvastatin Calcium) 40 Mg Tab 40 Mg PO HS 12/25/16 Reported Neurontin (Gabapentin) 300 Mg Cap 300 Mg PO TID 12/25/16 Reported Vitamin D 1000 Unit (Cholecalciferol) 1,000 Unit Cap 4,000 Inter.unit PO DAILY 05/11/13 Reported Fosamax (Alendronate Sodium) 70 Mg Tab 70 Mg PO WK 05/11/13 Reported TAKE THIS MEDICATION EVERY THURSDAY WITH 8 OUNCES OF WATER, 30 MINUTES BEFORE FIRST MEAL OF THE DAY. REMAIN UPRIGHT FOR 30 MINUTES AFTER TAKING. Oxybutynin Chloride Er (Oxybutynin Chloride) 5 Mg Tab 10 Mg PO QAM 05/11/13 Reported Review of Systems Constitutional: + weakness, + fatigue, No fever, No chills ENT: No hearing loss, No unusual epistaxis, No sore throat, No trouble swallowing, No pain on swallowing Respiratory: No cough, No sputum, No wheezing, No shortness of breath Cardiac: No chest pain, No palpitations Abdomen: + diarrhea, No pain, No nausea, No vomiting, No constipation, No GI bleeding, No dysphagia, No odynophagia, No jaundice, No dark urine Musculoskeletal: No joint pain Female : + incontinence, No dysuria Psych: No anxiety Skin: No rash, No itch, No color change, No bleeding Physical Exam Date Time Temp Pulse Resp B/P (MAP) Pulse Ox O2 Delivery O2 Flow Rate FiO2 04/01/17 08:12 36.6 72 16 113/68 (83) 98 04/01/17 04:00 Room Air 04/01/17 03:12 37.2 73 16 105/63 (77) 97 Room Air 04/01/17 00:01 Room Air 03/31/17 23:30 37.1 81 16 100/64 (76) 95 Room Air 03/31/17 21:44 36.8 80 20 103/65 (78) 97 Room Air 03/31/17 20:00 Room Air 03/31/17 16:00 Room Air 03/31/17 16:00 Room Air 03/31/17 15:14 36.8 83 18 82/57 (65) 95 Room Air 03/31/17 11:39 36.9 86 18 99/66 (77) 97 Room Air 03/31/17 11:21 Room Air General Appearance: no apparent distress Eyes: PERRL ENT: hearing grossly normal Neck: supple, no adenopathy Respiratory/Chest: lungs clear, normal breath sounds, no respiratory distress Cardiovascular: regular rate, rhythm, no gallop, no JVD, no murmur Abdomen: normal bowel sounds, non tender, soft, no organomegaly, no pulsatile mass Neurologic/Psych: alert, normal mood/affect, oriented x 3 Skin: normal color Laboratory Results Last 24 Hours Test 03/31/17 11:08 03/31/17 16:25 03/31/17 18:43 04/01/17 05:15 Bedside Glucose 108 mg/dl 91 mg/dl White Blood Count 3.29 K/uL Red Blood Count 2.98 M/uL Hemoglobin 9.0 g/dL Hematocrit 29.1 % Mean Corpuscular Volume 97.7 fL Mean Corpuscular Hemoglobin 30.2 pg Mean Corpuscular Hemoglobin Concent 30.9 g/dl RDW Standard Deviation 63.6 fL RDW Coefficient of Variation 17.7 % Platelet Count 145 K/uL Mean Platelet Volume 9.0 fL Sodium Level 138 mmol/L Potassium Level 3.6 mmol/L Chloride Level 107 mmol/L Carbon Dioxide Level 23 mmol/L Anion Gap 8.0 mmol/L Blood Urea Nitrogen 7 mg/dl Creatinine 0.66 mg/dl Est Creatinine Clear Calc Drug Dose 83.7 ml/min Estimated GFR () 112.1 Estimated GFR (Non- 96.7 BUN/Creatinine Ratio 10.2 Random Glucose 75 mg/dl Calcium Level 7.1 mg/dl Test 04/01/17 07:05 Bedside Glucose 89 mg/dl Impression Patient is a 61 year old female admitted for nausea, vomiting, abdominal pain and diarrhea, which is resolving. On admission there was minimally elevated LFTs , she is s/p cholecystectomy and CT imaging without evidence of biliary obstruction. CT w/ marked rectal wall thickening - pt tells me she is undergoing radiation therapy, but cannot tell me when or how many doses of radiation she has had. She tells me she had a recent colonoscopy which was unremarkable. She likely had viral gastroenteritis given the resolution of her symptoms. Chart reviewed: I do not see any evidence of this pt undoing radiation therapy. Colonoscopy in 2016 w/ poor prep. Plan - Continue symptomatic management - LFTs today - Stool studies negative - Will plan for outpatient prep - GI to sign off. Please call with any questions or concerns. I have seen , examined and agree with the plan as outlined by KEYON Steve as above. -Exam reveals soft abd -No further evidence of diarrhea, no known radiation exposure to my knowledge -Would discuss with outpt PROBATION AGENT/ONC and consider colonoscopy in 2-4 wks
--- NOTE | 2017-04-01 09:58 | Progress Note ---
Subjective Date of Service: Apr 01, 2017. Subjective Pt evaluation today including: conversation w/ patient, physical exam, lab review, review of studies, review of inpatient medication list Saw/examined the patient in room 201 No problems/issues to note, she is feeling much better today Tolerated clear liquid breakfast Denies shortness of breath/chest pain/palpitations Problem List Medical Problems: (1) Anemia Status: Chronic (2) B12 deficiency Status: Chronic (3) Benign hypertension Status: Chronic (4) Depression Status: Chronic (5) Diabetes mellitus type 2 Status: Chronic (6) Dyslipidemia Status: Chronic (7) Endometrial cancer Status: Chronic (8) Factor V Leiden mutation Status: Chronic (9) Hypokalemia Status: Acute (10) Hypokalemia Status: Acute (11) Hypothyroidism Status: Chronic (12) Nausea vomiting and diarrhea Status: Acute (13) Nausea, vomiting and diarrhea Status: Acute (14) UTI (urinary tract infection) Status: Acute Review of Systems Constitutional: + weakness, No fever, No chills Respiratory: No shortness of breath Cardiac: No chest pain Abdomen: No pain (improving), No nausea, No vomiting, No diarrhea Medications Current Inpatient Medications Medications (Trade) Dose Ordered Sig/Alek Route Start Time Stop Time Status Last Admin Dose Admin Ondansetron HCl (Zofran Inj) 4 mg Q6H PRN IV 03/30/17 12:00 04/29/17 11:59 03/31/17 08:43 4 MG Miscellaneous Information (Consult) 1 ea UD PRN N/A 03/30/17 12:45 04/29/17 12:44 Acetaminophen (Tylenol Tab) 1,000 mg Q6H PRN PO 03/30/17 12:30 04/29/17 12:29 Atorvastatin Calcium (Lipitor Tab) 40 mg HS PO 03/30/17 21:00 04/29/17 20:59 03/31/17 20:27 40 MG Cholecalciferol (Vitamin D Tab) 4,000 inter.unit DAILY PO 03/31/17 09:00 04/30/17 08:59 04/01/17 09:19 4,000 INTER.UNIT Enoxaparin Sodium (Lovenox Inj) 60 mg BID SQ 03/30/17 21:00 04/29/17 20:59 04/01/17 09:19 60 MG Gabapentin (Neurontin Cap) 300 mg TID PO 03/30/17 21:00 04/29/17 20:59 04/01/17 09:18 300 MG Lorazepam (Ativan Tab) 0.5 mg BID PRN PO 03/30/17 12:30 04/29/17 12:29 Metoprolol Succinate (Toprol Xl Tab) 50 mg QAM PO 03/31/17 09:00 04/30/17 08:59 04/01/17 09:18 50 MG Oxybutynin Chloride (Ditropan-Xl Tab) 10 mg QAM PO 03/31/17 09:00 04/30/17 08:59 04/01/17 09:18 10 MG Prochlorperazine Maleate (Compazine Tab) 10 mg Q6H PRN PO 03/30/17 18:00 04/29/17 17:59 Sertraline HCl (Zoloft Tab) 200 mg HS PO 03/30/17 21:00 04/29/17 20:59 03/31/17 20:27 200 MG Tramadol HCl (Ultram Tab) 50 mg Q6H PRN PO 03/30/17 12:30 04/29/17 12:29 03/30/17 15:43 50 MG Trazodone HCl (Desyrel Tab) 100 mg HS PRN PO 03/30/17 12:30 04/29/17 12:29 03/31/17 20:28 100 MG Piperacillin Sod/ Tazobactam Sod 3.375 gm/Dextrose 115 ml @ 28.75 mls/ hr Q8H IV 03/30/17 16:00 04/09/17 15:59 04/01/17 09:17 28.75 MLS/HR Vancomycin HCl 1000 mg/Sodium Chloride 270 ml @ 125 mls/hr Q22H IV 03/31/17 14:00 04/10/17 13:59 03/31/17 14:24 125 MLS/HR Miscellaneous Information (Consult) 1 ea UD PRN N/A 03/30/17 16:15 04/29/17 16:14 Levothyroxine Sodium (Synthroid Tab) 75 mcg DAILYBB PO 04/01/17 06:00 04/30/17 06:59 04/01/17 05:40 75 MCG Potassium Chloride (Klor-Con Tab) 20 meq BID PO 03/31/17 09:00 04/30/17 08:59 04/01/17 09:18 20 MEQ Ioversol (Optiray 320) 100 ml UD PRN IV 03/31/17 09:30 04/04/17 09:29 Calcium Carbonate (Tums Chew Tab) 500 mg Q6H PRN PO 04/01/17 00:00 05/01/17 00:00 Objective Vital Signs Date Time Temp Pulse Resp B/P (MAP) Pulse Ox O2 Delivery O2 Flow Rate FiO2 04/01/17 08:12 36.6 72 16 113/68 (83) 98 04/01/17 08:00 Room Air 04/01/17 04:00 Room Air 04/01/17 03:12 37.2 73 16 105/63 (77) 97 Room Air 04/01/17 00:01 Room Air 03/31/17 23:30 37.1 81 16 100/64 (76) 95 Room Air 03/31/17 21:44 36.8 80 20 103/65 (78) 97 Room Air 03/31/17 20:00 Room Air 03/31/17 16:00 Room Air 03/31/17 16:00 Room Air 03/31/17 15:14 36.8 83 18 82/57 (65) 95 Room Air 03/31/17 11:39 36.9 86 18 99/66 (77) 97 Room Air 03/31/17 11:21 Room Air Physical Exam General Appearance: no apparent distress Respiratory/Chest: no respiratory distress, no accessory muscle use Cardiovascular: regular rate, rhythm Abdomen: normal bowel sounds, non tender, soft, + pertinent finding (scarring noted) Neurologic/Psychiatric: no motor/sensory deficits, alert, normal mood/affect Laboratory Results Last 24 Hours Test 03/31/17 11:08 03/31/17 16:25 03/31/17 18:43 04/01/17 05:15 Bedside Glucose 108 mg/dl 91 mg/dl White Blood Count 3.29 K/uL Red Blood Count 2.98 M/uL Hemoglobin 9.0 g/dL Hematocrit 29.1 % Mean Corpuscular Volume 97.7 fL Mean Corpuscular Hemoglobin 30.2 pg Mean Corpuscular Hemoglobin Concent 30.9 g/dl RDW Standard Deviation 63.6 fL RDW Coefficient of Variation 17.7 % Platelet Count 145 K/uL Mean Platelet Volume 9.0 fL Sodium Level 138 mmol/L Potassium Level 3.6 mmol/L Chloride Level 107 mmol/L Carbon Dioxide Level 23 mmol/L Anion Gap 8.0 mmol/L Blood Urea Nitrogen 7 mg/dl Creatinine 0.66 mg/dl Est Creatinine Clear Calc Drug Dose 83.7 ml/min Estimated GFR () 112.1 Estimated GFR (Non- 96.7 BUN/Creatinine Ratio 10.2 Random Glucose 75 mg/dl Calcium Level 7.1 mg/dl Test 04/01/17 07:05 Bedside Glucose 89 mg/dl Assessment and Plan This is a 61 year old female with a PMH of uterine CA s/p chemotherapy (last dose in December 2016), Factor V Leiden mutation and recent RUE DVT, HTN, depression, DM2, hypothyroidism, iron deficiency anemia, gastric bypass status - recent admission to [facility] with hypotension, respiratory failure requiring ICU admission with intubation and mechanical ventilation - presents for nausea/ vomiting/diarrhea. Metabolic Encephalopathy secondary to UTI 04/01 urine culture - gram positive cocci, further speciation pending continue Vanc + Zosyn for now will transfer to med/surg continued PT/OT 03/31 gram positive cocci on urine culture blood cultures and stool culture still pending continue Vanc + Zosyn for now clinically improving; ordered PT/OT 03/30 patient has a UTI, slightly confused and altered recently admitted to [facility] as well as [facility] will start Vancomycin + Zosyn; to cover possible urine infection as well as GI infection cultures - gram positive cocci on urine culture will stop Marinol for now Viral Gastroenteritis Proctitis 04/[address] suggests proctitis infectious vs. chemo-induced diarrhea improving, C. diff negative, stool culture negative 03/31 abdominal radiograph suggests nonspecific enteritis patient continues to have abdominal pain in the epigastric region unable to tolerate PO diet, continues to have nausea/vomiting hypochloremic hypokalemia persists plan to obtain an abdominal CT with IV and oral contrast for further evaluation ; concern for gastric outlet obstruction vs. metastatic disease Multifactorial Anemia Iron Deficiency, B12 Deficiency, Chronic Disease patient with long-standing anemia, likely from her cancer as well as bariatric surgery Hgb on admission was 11.5, now down to 8.5; the initial number was likely falsely elevated due to dehydration will give a dose of IV Venofer now; she has been receiving this as outpatient; will give this x3 days will give an IM injection of B12, which she has also been receiving as an outpatient monitor H/H and transfuse PRN Hypothyroidism TSH is low will decrease Synthroid dose from 100mcg to 75mcg recheck TSH as outpatient in 6 weeks Uterine CA no longer receiving adjuvant chemotherapy due to mental status/diarrhea, etc. Brain MRI 03/30 - no acute process noted Sinus Rhythm with Significant Artifact continue to monitor in tele appreciate cardiology input, initially presumed to be atrial flutter, but more likely significant artifact continue Toprol XL Recent RUE DVT continue Lovenox 60mg BID FULL CODE as per patient, will need to discuss with daughter
[2017-04-01] MEDS ORDERED: VANCOMYCIN TROUGH ONE (11:30)
[2017-04-01] MEDS: VANCOMYCIN INJ 1,000 MG in SODIUM CHLORIDE 0.9% 250ML 250 ML IV SCH (13:10)
--- NOTE | 2017-04-01 15:17 | Pharmacy Progress Note ---
Pharmacy Abx Dose Progress Nt Date of Service Apr 01, 2017. Pharmacy Dosing Scope The patient is currently receiving the following antimicrobial agents per Pharmacy consult: Vancomycin 1000 mg IV every 22 hours Objective Height (Feet): 5 Height (Inches): 0.00 Weight (Kilograms): 76.200 Vital Signs (Past 12Hrs) Vital Signs Past 12 Hours Date Time Temp Pulse Resp B/P (MAP) Pulse Ox O2 Delivery O2 Flow Rate FiO2 04/01/17 15:07 36.6 67 18 94/62 (73) 99 Room Air 04/01/17 15:04 36.6 68 16 96/62 (73) 94 04/01/17 13:00 Room Air 04/01/17 12:02 36.6 72 16 118/60 (79) 100 Room Air 04/01/17 11:44 36.8 74 18 105/60 (75) 96 04/01/17 11:40 36.6 72 16 98 04/01/17 10:30 98 Room Air 04/01/17 08:12 36.6 72 16 113/68 (83) 98 04/01/17 08:00 Room Air 04/01/17 04:00 Room Air 04/01/17 03:12 37.2 73 16 105/63 (77) 97 Room Air Lab Results (24Hrs) Laboratory Tests (24 Hours) Test 04/01/17 05:15 White Blood Count 3.29 K/uL (4.8-10.8) L Micro Results Date/Time Source Procedure Growth Status 03/30/17 09:26 Blood Blood Culture Pending Received 03/30/17 07:58 Blood Blood Culture Pending Received 03/30/17 07:58 Blood Blood Culture Pending Received 03/30/17 16:35 Nasal MRSA DNA Surveillance Screen - Final Specimen Negative for MRSA by DNA Probe Complete 03/30/17 07:48 Stool Shiga Toxin Test - Preliminary No E. Coli shiga toxin 1 or shiga tox... Resulted 03/30/17 07:48 Stool Stool Culture - Preliminary NO SALMONELLA ISOLATED TO DATE,... Resulted 03/30/17 07:48 Stool C.difficile Toxin B Gene (PCR) - Final No C. difficile toxin B gene detected Complete 03/30/17 07:48 Urine,Catheterized Urine Culture - Preliminary Gram Positive Cocci Resulted Assessment & Plan Assessment 61 year old female receiving Vancomycin + Zosyn IV for treatment of possible GI vs. urinary infection * On day # 3 of antimicrobial therapy * recent chemotherapy, hospital admission, and administration of antibiotics * GPC reported in the urine, pending Plan Continue Vancomycin IV * Trough level of 17.4 mcg/mL is therapeutic * Continue dose of 1000 mg IV every 22 hours * Goal trough level : 15 to 20 mcg/mL * I anticipated trough level to be low due to recent significant improvement in renal function. I will repeat trough level on 04/03/17 to ensure level remains therapeutic. Piperacillin/tazobactam * Continue 3.375 g IV extended infusion every 8 hours for CrCl greater than 20 mL/min Pharmacy will continue to follow and will adjust dose/frequency as necessary. Thank you.
[2017-04-01] MEDS: SERTRALINE HCL 100 MG TAB PO SCH (20:56)
[2017-04-01] MEDS: ATORVASTATIN 40 MG TAB PO SCH (20:56)
[2017-04-02] VITALS (7 sets, daily range): BP systolic 90–125; BP diastolic 60–76; PULSE 61–69; TEMP 36.5–36.6; O2SAT 97–100
[2017-04-02] MEDS: PIPERACILL/TAZOBAC IV 3.375 GM in DEXTROSE 5% 100ML IV SCH ×2 (00:22→09:29)
[2017-04-02] MEDS: LEVOTHYROXINE 75 MCG TAB PO SCH (06:21)
[2017-04-02 06:34] LABS: HEMATOCRIT 29.9 % (37-47); HEMOGLOBIN 9.2 g/dL (12.0-16.0); MEAN CELL VOLUME 97.7 fL (80-100); MEAN CORPUSCULAR HEMOGLOBIN 30.1 pg (25-34); MEAN CORPUSCULAR HGB CONC 30.8 g/dl (32-36); PLATELET COUNT 136 K/uL (130-400); RED CELL DISTRIBUTION WIDTH CV 17.8 % (11.5-14.5); RED CELL DISTRIBUTION WIDTH SD 63.4 fL (36.4-46.3); WHITE BLOOD COUNT 3.26 K/uL (4.8-10.8)
[2017-04-02 07:02] LABS: CALCIUM 7.7 mg/dl (8.5-10.1); CREATININE 0.64 mg/dl (0.60-1.20); POTASSIUM 3.4 mmol/L (3.5-5.1)
[2017-04-02 07:14] LABS: PHOSPHORUS 1.5 mg/dl (2.5-4.9)
[2017-04-02] MEDS ORDERED: POTASSIUM PHOS 3 MMOL/1 ML INFUSION IV STA (07:21)
[2017-04-02] MEDS ORDERED: VANCOMYCIN TROUGH ONE (07:30)
[2017-04-02] MEDS ORDERED: POTASSIUM CHLR 10 MEQ / WTR 10 MEQ in PREMIXED WATER 100 ML IV ONE (07:40)
[2017-04-02] MEDS ORDERED: POTASSIUM PHOSPHATE INJ 21 MMOL in SODIUM CHLORIDE 0.9% 500ML 500 ML IV ONE (07:45)
[2017-04-02] MEDS: METOPROLOL SUCC 50MG EXT REL TAB PO SCH (09:19)
[2017-04-02] MEDS: OXYBUTYNIN CHLORIDE 5 MG TABCR PO SCH (09:19)
[2017-04-02] MEDS: POTASSIUM CHLORIDE 20 MEQ TABCR PO SCH ×3 (09:19→21:08)
[2017-04-02] MEDS: GABAPENTIN 300 MG CAP PO SCH ×3 (09:19→21:04)
[2017-04-02] MEDS: CHOLECALCIFEROL 1000 INTER.UNIT TAB PO SCH (09:28)
[2017-04-02] MEDS: ENOXAPARIN 60 MG/0.6 ML SYR SQ SCH ×2 (09:30→21:05)
[2017-04-02] MEDS: TRAMADOL HCL 50 MG TAB PO PRN (09:30)
[2017-04-02] MEDS: VANCOMYCIN INJ 1,000 MG in SODIUM CHLORIDE 0.9% 250ML 250 ML IV SCH (12:38)
--- NOTE | 2017-04-02 12:58 | Progress Note ---
Subjective Date of Service: Apr 02, 2017. Subjective Pt evaluation today including: conversation w/ patient, physical exam, lab review, review of studies, review of inpatient medication list Saw/examined the patient in room 423 She is doing okay diarrhea persists no abdominal pain no nausea/vomiting would like to advance diet Problem List Medical Problems: (1) Anemia Status: Chronic (2) B12 deficiency Status: Chronic (3) Benign hypertension Status: Chronic (4) Depression Status: Chronic (5) Diabetes mellitus type 2 Status: Chronic (6) Dyslipidemia Status: Chronic (7) Endometrial cancer Status: Chronic (8) Factor V Leiden mutation Status: Chronic (9) Hypokalemia Status: Acute (10) Hypokalemia Status: Acute (11) Hypothyroidism Status: Chronic (12) Nausea vomiting and diarrhea Status: Acute (13) Nausea, vomiting and diarrhea Status: Acute (14) UTI (urinary tract infection) Status: Acute Review of Systems Constitutional: + weakness, No fever, No chills Respiratory: No cough, No sputum, No shortness of breath Cardiac: No chest pain, No edema, No palpitations Abdomen: + diarrhea, No pain, No nausea, No vomiting Medications Current Inpatient Medications Medications (Trade) Dose Ordered Sig/Alek Route Start Time Stop Time Status Last Admin Dose Admin Ondansetron HCl (Zofran Inj) 4 mg Q6H PRN IV 03/30/17 12:00 04/29/17 11:59 03/31/17 08:43 4 MG Miscellaneous Information (Consult) 1 ea UD PRN N/A 03/30/17 12:45 04/29/17 12:44 Acetaminophen (Tylenol Tab) 1,000 mg Q6H PRN PO 03/30/17 12:30 04/29/17 12:29 Atorvastatin Calcium (Lipitor Tab) 40 mg HS PO 03/30/17 21:00 04/29/17 20:59 04/01/17 20:56 40 MG Cholecalciferol (Vitamin D Tab) 4,000 inter.unit DAILY PO 03/31/17 09:00 04/30/17 08:59 04/02/17 09:28 4,000 INTER.UNIT Enoxaparin Sodium (Lovenox Inj) 60 mg BID SQ 03/30/17 21:00 04/29/17 20:59 04/02/17 09:30 60 MG Gabapentin (Neurontin Cap) 300 mg TID PO 03/30/17 21:00 04/29/17 20:59 04/02/17 12:38 300 MG Lorazepam (Ativan Tab) 0.5 mg BID PRN PO 03/30/17 12:30 04/29/17 12:29 Metoprolol Succinate (Toprol Xl Tab) 50 mg QAM PO 03/31/17 09:00 04/30/17 08:59 04/02/17 09:19 50 MG Oxybutynin Chloride (Ditropan-Xl Tab) 10 mg QAM PO 03/31/17 09:00 04/30/17 08:59 04/02/17 09:19 10 MG Prochlorperazine Maleate (Compazine Tab) 10 mg Q6H PRN PO 03/30/17 18:00 04/29/17 17:59 Sertraline HCl (Zoloft Tab) 200 mg HS PO 03/30/17 21:00 04/29/17 20:59 04/01/17 20:56 200 MG Tramadol HCl (Ultram Tab) 50 mg Q6H PRN PO 03/30/17 12:30 04/29/17 12:29 04/02/17 09:30 50 MG Trazodone HCl (Desyrel Tab) 100 mg HS PRN PO 03/30/17 12:30 04/29/17 12:29 03/31/17 20:28 100 MG Piperacillin Sod/ Tazobactam Sod 3.375 gm/Dextrose 115 ml @ 28.75 mls/ hr Q8H IV 03/30/17 16:00 04/09/17 15:59 04/02/17 09:29 28.75 MLS/HR Vancomycin HCl 1000 mg/Sodium Chloride 270 ml @ 125 mls/hr Q22H IV 03/31/17 14:00 04/10/17 13:59 04/01/17 13:10 125 MLS/HR Miscellaneous Information (Consult) 1 ea UD PRN N/A 03/30/17 16:15 04/29/17 16:14 Levothyroxine Sodium (Synthroid Tab) 75 mcg DAILYBB PO 04/01/17 06:00 04/30/17 06:59 04/02/17 06:21 75 MCG Potassium Chloride (Klor-Con Tab) 20 meq BID PO 03/31/17 09:00 04/30/17 08:59 04/01/17 09:18 20 MEQ Ioversol (Optiray 320) 100 ml UD PRN IV 03/31/17 09:30 04/04/17 09:29 Calcium Carbonate (Tums Chew Tab) 500 mg Q6H PRN PO 04/01/17 00:00 05/01/17 00:00 Potassium Phosphate 21 mmol/ Sodium Chloride 507 ml @ 88 mls/hr ONE ONCE IV 04/02/17 07:45 04/02/17 13:30 04/02/17 10:16 88 MLS/HR Objective Vital Signs Date Time Temp Pulse Resp B/P (MAP) Pulse Ox O2 Delivery O2 Flow Rate FiO2 04/02/17 11:45 36.6 63 16 103/69 (80) 100 Room Air 04/02/17 07:26 36.5 67 16 101/60 (74) 99 Room Air 04/02/17 05:03 36.6 69 18 108/70 (83) 99 Room Air 04/02/17 00:00 98 Room Air 04/01/17 23:29 36.5 67 16 121/72 (88) 97 Room Air 04/01/17 19:36 36.3 66 16 106/69 (81) 100 Room Air 04/01/17 16:00 Room Air 04/01/17 15:07 36.6 67 18 94/62 (73) 99 Room Air 04/01/17 15:04 36.6 68 16 96/62 (73) 94 04/01/17 13:00 Room Air Physical Exam General Appearance: no apparent distress, + pertinent finding (chronically ill appearing) Respiratory/Chest: no respiratory distress, no accessory muscle use Cardiovascular: regular rate, rhythm, no edema, no murmur Abdomen: normal bowel sounds, non tender, soft Extremities: normal inspection, no pedal edema Laboratory Results Last 24 Hours Test 04/02/17 06:14 White Blood Count 3.26 K/uL Red Blood Count 3.06 M/uL Hemoglobin 9.2 g/dL Hematocrit 29.9 % Mean Corpuscular Volume 97.7 fL Mean Corpuscular Hemoglobin 30.1 pg Mean Corpuscular Hemoglobin Concent 30.8 g/dl RDW Standard Deviation 63.4 fL RDW Coefficient of Variation 17.8 % Platelet Count 136 K/uL Mean Platelet Volume 9.0 fL Sodium Level 140 mmol/L Potassium Level 3.4 mmol/L Chloride Level 108 mmol/L Carbon Dioxide Level 25 mmol/L Anion Gap 7.0 mmol/L Blood Urea Nitrogen 5 mg/dl Creatinine 0.64 mg/dl Est Creatinine Clear Calc Drug Dose 86.5 ml/min Estimated GFR () 113.2 Estimated GFR (Non- 97.7 BUN/Creatinine Ratio 7.2 Random Glucose 76 mg/dl Calcium Level 7.7 mg/dl Phosphorus Level 1.5 mg/dl Magnesium Level 1.9 mg/dl Assessment and Plan This is a 61 year old female with a PMH of uterine CA s/p chemotherapy (last dose in December 2016), Factor V Leiden mutation and recent RUE DVT, HTN, depression, DM2, hypothyroidism, iron deficiency anemia, gastric bypass status - recent admission to [facility] with hypotension, respiratory failure requiring ICU admission with intubation and mechanical ventilation - presents for nausea/ vomiting/diarrhea. Metabolic Encephalopathy secondary to UTI 04/02 will stop Zosyn continue Vancomycin while awaiting urine culture PT/OT plan for d/c to [facility]; can d/c today if approved and bed available 04/01 urine culture - gram positive cocci, further speciation pending continue Vanc + Zosyn for now will transfer to med/surg continued PT/OT 03/31 gram positive cocci on urine culture blood cultures and stool culture still pending continue Vanc + Zosyn for now clinically improving; ordered PT/OT 03/30 patient has a UTI, slightly confused and altered recently admitted to [facility] as well as [facility] will start Vancomycin + Zosyn; to cover possible urine infection as well as GI infection cultures - gram positive cocci on urine culture will stop Marinol for now Viral Gastroenteritis Proctitis 04/[address] suggests proctitis infectious vs. chemo-induced diarrhea improving, C. diff negative, stool culture negative 03/31 abdominal radiograph suggests nonspecific enteritis patient continues to have abdominal pain in the epigastric region unable to tolerate PO diet, continues to have nausea/vomiting hypochloremic hypokalemia persists plan to obtain an abdominal CT with IV and oral contrast for further evaluation ; concern for gastric outlet obstruction vs. metastatic disease Multifactorial Anemia Iron Deficiency, B12 Deficiency, Chronic Disease patient with long-standing anemia, likely from her cancer as well as bariatric surgery Hgb on admission was 11.5, now down to 8.5; the initial number was likely falsely elevated due to dehydration will give a dose of IV Venofer now; she has been receiving this as outpatient; will give this x3 days will give an IM injection of B12, which she has also been receiving as an outpatient monitor H/H and transfuse PRN Hypothyroidism TSH is low will decrease Synthroid dose from 100mcg to 75mcg recheck TSH as outpatient in 6 weeks Uterine CA no longer receiving adjuvant chemotherapy due to mental status/diarrhea, etc. Brain MRI 03/30 - no acute process noted Sinus Rhythm with Significant Artifact continue to monitor in tele appreciate cardiology input, initially presumed to be atrial flutter, but more likely significant artifact continue Toprol XL Recent RUE DVT continue Lovenox 60mg BID FULL CODE as per patient, will need to discuss with daughter
[2017-04-02] MEDS ORDERED: DAPTOmycin IV 300 MG in SYRINGE 0 ML IV SCH (18:00)
[2017-04-02] MEDS ORDERED: ALTEPLASE, RECOMBINANT 1 MG/ML 2 ML VIAL IV ONE (18:30)
[2017-04-02 18:32] LABS: TOTAL PROTEIN 5.6 gm/dl (6.4-8.2)
[2017-04-02] MEDS: SERTRALINE HCL 100 MG TAB PO SCH (21:06)
[2017-04-02] MEDS: ATORVASTATIN 40 MG TAB PO SCH (21:06)
[2017-04-03] MEDS: TRAZODONE HCL 100 MG TAB PO PRN (00:15)
[2017-04-03 03:53] VITALS: BP 112/74; PULSE 53; TEMP 36.5; O2SAT 98
[2017-04-03] MEDS: LEVOTHYROXINE 75 MCG TAB PO SCH (05:47)
[2017-04-03] MEDS ORDERED: ALENDRONATE SODIUM 70 MG TAB PO SCH (06:30)
[2017-04-03] MEDS ORDERED: VANCOMYCIN TROUGH ONE (07:30)
[2017-04-03 07:45] VITALS: BP 100/76; PULSE 74; TEMP 36.5; O2SAT 99
[2017-04-03 08:00] VITALS: O2SAT 99
[2017-04-03] MEDS: POTASSIUM CHLORIDE 20 MEQ TABCR PO SCH ×2 (08:00→08:29)
[2017-04-03 08:20] VITALS: O2SAT 99
[2017-04-03] MEDS: ENOXAPARIN 60 MG/0.6 ML SYR SQ SCH (08:29)
[2017-04-03] MEDS: GABAPENTIN 300 MG CAP PO SCH ×2 (08:30→14:20)
[2017-04-03] MEDS: OXYBUTYNIN CHLORIDE 5 MG TABCR PO SCH (08:30)
[2017-04-03] MEDS: CHOLECALCIFEROL 1000 INTER.UNIT TAB PO SCH (08:31)
[2017-04-03] MEDS: METOPROLOL SUCC 50MG EXT REL TAB PO SCH (08:31)
[2017-04-03] MEDS: TRAMADOL HCL 50 MG TAB PO PRN (08:55)
[2017-04-03 09:37] LABS: HEMATOCRIT 31.4 % (37-47); HEMOGLOBIN 9.7 g/dL (12.0-16.0); MEAN CELL VOLUME 97.2 fL (80-100); MEAN CORPUSCULAR HGB CONC 30.9 g/dl (32-36); MEAN PLATELET VOLUME 9.4 fL (7.4-10.4); PLATELET COUNT 148 K/uL (130-400); RED CELL DISTRIBUTION WIDTH CV 17.6 % (11.5-14.5); RED CELL DISTRIBUTION WIDTH SD 62.7 fL (36.4-46.3); WHITE BLOOD COUNT 3.45 K/uL (4.8-10.8)
[2017-04-03 09:59] LABS: CALCIUM 8.3 mg/dl (8.5-10.1); CREATININE 0.53 mg/dl (0.60-1.20); PHOSPHORUS 2.5 mg/dl (2.5-4.9)
--- NOTE | 2017-04-03 10:07 | Progress Note ---
Subjective Date of Service: Apr 03, 2017. Subjective Pt evaluation today including: conversation w/ patient, physical exam, lab review, review of studies, review of inpatient medication list Saw/examined the patient in room 423 No problems/issues, states that her diarrhea is better she wants her diet advanced cause she does not like the full liquid diet Problem List Medical Problems: (1) Anemia Status: Chronic (2) B12 deficiency Status: Chronic (3) Benign hypertension Status: Chronic (4) Depression Status: Chronic (5) Diabetes mellitus type 2 Status: Chronic (6) Dyslipidemia Status: Chronic (7) Endometrial cancer Status: Chronic (8) Factor V Leiden mutation Status: Chronic (9) Hypokalemia Status: Acute (10) Hypokalemia Status: Acute (11) Hypothyroidism Status: Chronic (12) Nausea vomiting and diarrhea Status: Acute (13) Nausea, vomiting and diarrhea Status: Acute (14) UTI (urinary tract infection) Status: Acute Review of Systems Constitutional: + weakness, No fever, No chills Respiratory: No cough, No sputum, No shortness of breath Cardiac: No chest pain Abdomen: + diarrhea (improving), No pain, No nausea, No vomiting, No constipation, No GI bleeding Female : No dysuria, No urinary frequency Medications Current Inpatient Medications Medications (Trade) Dose Ordered Sig/Alek Route Start Time Stop Time Status Last Admin Dose Admin Ondansetron HCl (Zofran Inj) 4 mg Q6H PRN IV 03/30/17 12:00 04/29/17 11:59 03/31/17 08:43 4 MG Acetaminophen (Tylenol Tab) 1,000 mg Q6H PRN PO 03/30/17 12:30 04/29/17 12:29 Atorvastatin Calcium (Lipitor Tab) 40 mg HS PO 03/30/17 21:00 04/29/17 20:59 04/02/17 21:06 40 MG Cholecalciferol (Vitamin D Tab) 4,000 inter.unit DAILY PO 03/31/17 09:00 04/30/17 08:59 04/03/17 08:31 4,000 INTER.UNIT Enoxaparin Sodium (Lovenox Inj) 60 mg BID SQ 03/30/17 21:00 04/29/17 20:59 04/03/17 08:29 60 MG Gabapentin (Neurontin Cap) 300 mg TID PO 03/30/17 21:00 04/29/17 20:59 04/03/17 08:30 300 MG Lorazepam (Ativan Tab) 0.5 mg BID PRN PO 03/30/17 12:30 04/29/17 12:29 Metoprolol Succinate (Toprol Xl Tab) 50 mg QAM PO 03/31/17 09:00 04/30/17 08:59 04/03/17 08:31 50 MG Oxybutynin Chloride (Ditropan-Xl Tab) 10 mg QAM PO 03/31/17 09:00 04/30/17 08:59 04/03/17 08:30 10 MG Prochlorperazine Maleate (Compazine Tab) 10 mg Q6H PRN PO 03/30/17 18:00 04/29/17 17:59 Sertraline HCl (Zoloft Tab) 200 mg HS PO 03/30/17 21:00 04/29/17 20:59 04/02/17 21:06 200 MG Tramadol HCl (Ultram Tab) 50 mg Q6H PRN PO 03/30/17 12:30 04/29/17 12:29 04/03/17 08:55 50 MG Trazodone HCl (Desyrel Tab) 100 mg HS PRN PO 03/30/17 12:30 04/29/17 12:29 04/03/17 00:15 100 MG Levothyroxine Sodium (Synthroid Tab) 75 mcg DAILYBB PO 04/01/17 06:00 04/30/17 06:59 04/03/17 05:47 75 MCG Potassium Chloride (Klor-Con Tab) 20 meq BID PO 03/31/17 09:00 04/30/17 08:59 04/01/17 09:18 20 MEQ Ioversol (Optiray 320) 100 ml UD PRN IV 03/31/17 09:30 04/04/17 09:29 Calcium Carbonate (Tums Chew Tab) 500 mg Q6H PRN PO 04/01/17 00:00 05/01/17 00:00 Heparin Sodium (Porcine) (Heparin 100 Unit/ml 5ml Flush) 5 ml PRN PRN IV 04/02/17 17:00 05/02/17 16:59 04/02/17 17:04 5 ML Daptomycin 300 mg/ Syringe 6 ml @ 3 mls/min DAILY@1800 IV 04/02/17 18:00 04/12/17 17:59 04/02/17 19:09 3 MLS/MIN Objective Vital Signs Date Time Temp Pulse Resp B/P (MAP) Pulse Ox O2 Delivery O2 Flow Rate FiO2 04/03/17 08:20 99 Room Air 04/03/17 07:45 36.5 74 18 100/76 (84) 99 Room Air 04/03/17 03:53 36.5 53 16 112/74 (87) 98 Room Air 04/03/17 00:00 Room Air 04/02/17 23:41 36.6 65 16 109/70 (83) 97 Room Air 04/02/17 19:45 36.6 61 18 125/76 (92) 100 Room Air 04/02/17 16:02 36.5 62 17 90/62 (71) 97 Room Air 04/02/17 11:45 36.6 63 16 103/69 (80) 100 Room Air Physical Exam General Appearance: no apparent distress Respiratory/Chest: no respiratory distress, no accessory muscle use Cardiovascular: regular rate, rhythm, no edema, no murmur Abdomen: normal bowel sounds, non tender, soft Extremities: normal inspection, no pedal edema Neurologic/Psychiatric: no motor/sensory deficits, alert, normal mood/affect Laboratory Results Last 24 Hours Test 04/02/17 18:01 04/03/17 08:29 04/03/17 09:25 Total Bilirubin 0.4 mg/dl Direct Bilirubin 0.2 mg/dl Aspartate Amino Transf (AST/SGOT) 32 U/L Alanine Aminotransferase (ALT/SGPT) 18 U/L Alkaline Phosphatase 174 U/L Total Creatine Kinase 39 U/L Total Protein 5.6 gm/dl Albumin 2.0 gm/dl White Blood Count 3.45 K/uL Red Blood Count 3.23 M/uL Hemoglobin 9.7 g/dL Hematocrit 31.4 % Mean Corpuscular Volume 97.2 fL Mean Corpuscular Hemoglobin 30.0 pg Mean Corpuscular Hemoglobin Concent 30.9 g/dl RDW Standard Deviation 62.7 fL RDW Coefficient of Variation 17.6 % Platelet Count 148 K/uL Mean Platelet Volume 9.4 fL Sodium Level 141 mmol/L Potassium Level 4.0 mmol/L Chloride Level 109 mmol/L Carbon Dioxide Level 23 mmol/L Anion Gap 9.0 mmol/L Blood Urea Nitrogen 3 mg/dl Creatinine 0.53 mg/dl Est Creatinine Clear Calc Drug Dose 104.2 ml/min Estimated GFR () 120.5 Estimated GFR (Non- 103.9 BUN/Creatinine Ratio 6.1 Random Glucose 99 mg/dl Calcium Level 8.3 mg/dl Phosphorus Level 2.5 mg/dl Magnesium Level 1.8 mg/dl Assessment and Plan This is a 61 year old female with a PMH of uterine CA s/p chemotherapy (last dose in December 2016), Factor V Leiden mutation and recent RUE DVT, HTN, depression, DM2, hypothyroidism, iron deficiency anemia, gastric bypass status - recent admission to [facility] with hypotension, respiratory failure requiring ICU admission with intubation and mechanical ventilation - presents for nausea/ vomiting/diarrhea. Metabolic Encephalopathy secondary to UTI 04/03 noted to have Enterococcus Faecium VRE infection switched Vanco to Dapto consulted ID for length of treatment, Dapto vs. Zyvox 04/02 will stop Zosyn continue Vancomycin while awaiting urine culture PT/OT plan for d/c to [facility]; can d/c today if approved and bed available 04/01 urine culture - gram positive cocci, further speciation pending continue Vanc + Zosyn for now will transfer to med/surg continued PT/OT 03/31 gram positive cocci on urine culture blood cultures and stool culture still pending continue Vanc + Zosyn for now clinically improving; ordered PT/OT 03/30 patient has a UTI, slightly confused and altered recently admitted to [facility] as well as [facility] will start Vancomycin + Zosyn; to cover possible urine infection as well as GI infection cultures - gram positive cocci on urine culture will stop Marinol for now Viral Gastroenteritis Proctitis 04/[address] suggests proctitis infectious vs. chemo-induced diarrhea improving, C. diff negative, stool culture negative 03/31 abdominal radiograph suggests nonspecific enteritis patient continues to have abdominal pain in the epigastric region unable to tolerate PO diet, continues to have nausea/vomiting hypochloremic hypokalemia persists plan to obtain an abdominal CT with IV and oral contrast for further evaluation ; concern for gastric outlet obstruction vs. metastatic disease Multifactorial Anemia Iron Deficiency, B12 Deficiency, Chronic Disease patient with long-standing anemia, likely from her cancer as well as bariatric surgery Hgb on admission was 11.5, now down to 8.5; the initial number was likely falsely elevated due to dehydration will give a dose of IV Venofer now; she has been receiving this as outpatient; will give this x3 days will give an IM injection of B12, which she has also been receiving as an outpatient monitor H/H and transfuse PRN Hypothyroidism TSH is low will decrease Synthroid dose from 100mcg to 75mcg recheck TSH as outpatient in 6 weeks Uterine CA no longer receiving adjuvant chemotherapy due to mental status/diarrhea, etc. Brain MRI 03/30 - no acute process noted Sinus Rhythm with Significant Artifact continue to monitor in tele appreciate cardiology input, initially presumed to be atrial flutter, but more likely significant artifact continue Toprol XL Recent RUE DVT continue Lovenox 60mg BID FULL CODE as per patient, will need to discuss with daughter
--- NOTE | 2017-04-03 10:51 | Progress Note ---
Progress Note Date of Service Apr 03, 2017. Progress Note ID Consult Dictated #[id number] A/P: 1. UTI -Request for change to zyvox. pt has had one day dapto, would complete 2 more days abx, ssri on hold -ok for d/c when otherwise stable. -thank you
--- NOTE | 2017-04-03 10:54 | INFECT. DISEASE CONSULTATION ---
DATE OF CONSULTATION: 04/03/2017 HISTORY OF PRESENT ILLNESS: This is a 61-year-old female who was admitted to the hospital with abdominal pain and diarrhea for 3 days. She does have a recent diagnosis of endometrial cancer and started chemotherapy in December 2016. Overall, she had been tolerating this well. On my examination this morning, she is eating breakfast. She states her diarrhea significantly improve. She did have a C. diff, which was negative during this admission. She was started empirically on daptomycin and Zosyn. Her Zosyn has been discontinued. She continues on daptomycin. She has been afebrile since admission. As part of her workup, a UA and urine culture were obtained. Her urinalysis had 10-30 WBCs and 4+ bacteria. A culture grew VRE, which is sensitive to daptomycin, but resistant to ampicillin. Her white blood cell count was 9 on admission and has most recently decreased to 3. She currently denies any chest pain, cough, shortness of breath, nausea, vomiting, diarrhea or abdominal pain. She is eating well. She did admit to some burning urination, but states this has resolved. She is tolerating antibiotics well. Infectious disease was consulted for Zyvox approval. All remaining review of systems is reviewed and unremarkable. PAST MEDICAL HISTORY: Significant for anemia, B12 deficiency, hypertension, depression, type 2 diabetes, high cholesterol, endometrial cancer on chemotherapy, factor V Leiden mutation, hypothyroidism. PAST SURGICAL HISTORY: She has a history of bilateral knee surgeries, cholecystectomy, gastric bypass, total hip replacement and a port on the right chest wall. FAMILY HISTORY: Noncontributory. SOCIAL HISTORY: Negative for alcohol use, drug use or tobacco use. ALLERGIES: She has no known drug allergies. MEDICATIONS: Daptomycin, subQ heparin, Synthroid, Tums, vitamin D, Toprol-XL, Ditropan, potassium, Lipitor, Lovenox, Neurontin, Zoloft, Compazine, Tylenol, Ativan, Ultram, trazodone, and Zofran. PHYSICAL EXAMINATION: VITAL SIGNS: She is afebrile, pulse 74, respiratory rate 18, blood pressure 100/76, oxygen saturation is 99% on room air. GENERAL: She is awake, alert and oriented x3. She is in no acute distress. HEENT: Mucous membranes are moist. Extraocular muscles are intact. HEART: Regular. LUNGS: Clear. ABDOMEN: Soft and nondistended. EXTREMTIES: There is no edema. SKIN: Without rash. Port site is clean, dry and intact. There is no surrounding erythema, warmth or induration. LABORATORY STUDIES: C. diff was negative. Urine culture is growing VRE. CBC today reveals a white blood cell count of 3.4, hemoglobin 9.7, platelets 148. Chemistry panel: Sodium 141, potassium 4.0, chloride 109, bicarbonate 23, BUN 3, creatinine 0.5, glucose is 99. LFTs are within normal limits. UA is as above. Blood cultures are pending from the . She did have a CAT scan of the abdomen and pelvis on the , which showed proctitis and postsurgical changes. ASSESSMENT AND PLAN: Urinary tract infection with vancomycin-resistant enterococci. Certainly, she can complete a course with oral Zyvox. She would complete 10 days total. She has been on daptomycin previous to this and certainly, this would count towards her total number of days. She can be discharged from an infectious diseases standpoint when otherwise clinically stable. Thank you for this consultation.
[2017-04-03 13:25] VITALS: BP 102/83; PULSE 73; TEMP 36.6; O2SAT 97
[2017-04-03] MEDS ORDERED: TUMS PO (13:26)
[2017-04-03] MEDS ORDERED: LEVO75TA PO (13:26)
[2017-04-03] MEDS ORDERED: LINE1TAB2 PO (13:26)
--- NOTE | 2017-04-03 13:29 | Discharge Instructions ---
Discharge Instructions Date of Service Apr 03, 2017. Admission Reason for Admission: Altered Mental Status, Urinary Tract Infection Discharge Discharge Diagnosis / Problem: Urinary Tract Infection, Dehydration Discharge Goals Goal(s): Decrease discomfort, Improve function, Diagnostic testing, Therapeutic intervention Activity Recommendations Activity Limitations: resume your previous activity . Instructions / Follow-Up Instructions / Follow-Up Please follow-up with your primary care physician * You will be prescribed Zyvox (antibiotic) twice a day for 9 days * Please stop taking Zinc and Marinol * Your dose of Synthroid will be changed from 100mcg to 75mcg; blood work (TSH) should be done in 4-6 weeks Current Hospital Diet Patient's current hospital diet: Low Sodium Diet (2gm Na), Regular Diet Discharge Diet Recommended Diet: Regular Diet, Low Sodium Diet (2gm Na) Pending Studies Studies pending at discharge: no Laboratory Results Hemoglobin A1c Test 02/03/17 04:03 Range/Units Estimated Average Glucose 143 mg/dl Hemoglobin A1c 6.6 H 4.5-5.6 % Medical Emergencies . Who to Call and When: Medical Emergencies: If at any time you feel your situation is an emergency, please call 911 immediately. . Non-Emergent Contact Non-Emergency issues call your: Primary Care Provider, Oncologist . . "Provider Documentation" section prepared by Evita Escalante. . VTE Core Measure Inpt VTE Proph given/why not?: Enoxaparin (Lovenox)SQ
--- NOTE | 2017-04-03 13:32 | Discharge Summary ---
Discharge Summary Date of Service Apr 03, 2017. Discharge Summary Admission Date: Mar 30, 2017 at 11:51 Discharge Date: Apr 03, 2017 Discharge Disposition: half-way facility Principal Diagnosis: Enterococcus Faecium VRE UTI Metabolic Encephalopathy Dehydration Hypothyroidism Proctitis/Viral Enteritis Multifactorial Anemia Medication Reconciliation New Medications: Calcium Carbonate (Tums) 500 Mg Chew 500 MG PO Q6H PRN for Heartburn/indigestion for 30 Days, #120 TABS Linezolid (Linezolid) 600 Mg Tab 600 MG PO BID for 9 Days, #18 TAB Changed Medications: Levothyroxine Sodium (Synthroid) 75 Mcg Tab 1 TAB PO DAILY for 30 Days, #30 TAB 5 Refills (Changed from: Levothyroxine Sodium (Synthroid) 100 Mcg Tab 100 Mcg PO DAILY) Continued Medications: Acetaminophen (Tylenol) 500 Mg Tab 1000 MG PO Q6 PRN for Pain or Fever Alendronate Sodium (Fosamax) 70 Mg Tab 70 MG PO WK TAKE THIS MEDICATION EVERY THURSDAY WITH 8 OUNCES OF WATER, 30 MINUTES BEFORE FIRST MEAL OF THE DAY. REMAIN UPRIGHT FOR 30 MINUTES AFTER TAKING. Atorvastatin (Lipitor) 40 Mg Tab 40 MG PO HS Cholecalciferol (Vitamin D 1000 Unit) 1,000 Unit Cap 4000 INTER.UNIT PO DAILY Enoxaparin (Lovenox) 60 Mg/0.6 Ml Inj 60 MG INJ BID Gabapentin (Neurontin) 300 Mg Cap 300 MG PO TID Hydrocodone/Acetaminophen 5MG/325MG ([place] 5MG/325MG) Tab 1 TAB PO Q4 PRN for Moderate Pain for 30 Days, #90 TAB PRN PAIN Lorazepam (Ativan) 0.5 Mg Tab 0.5 MG PO BID PRN for Anxiety, #30 Metoprolol Succ (Toprol Xl) (Toprol-Xl) 50 Mg Tabcr 50 MG PO QAM Ondansetron Hcl (Zofran) 8 Mg Tab 8 MG PO Q8 PRN for Nausea or Vomiting, TAB Oxybutynin Chloride (Oxybutynin Chloride Er) 5 Mg Tab 10 MG PO QAM Prochlorperazine Maleate (Compazine) 10 Mg Tab 1 TAB PO Q6 PRN for Nausea or Vomiting for 7 Days, #30 TAB 3 Refills Sertraline (Zoloft) 100 Mg Tab 200 MG PO HS Tramadol (Ultram) 50 Mg Tab 50 MG PO Q6H PRN for Pain, #30 TAB Trazodone Hcl (Trazodone) 100 Mg Tab 100 MG PO HS PRN for Sleep, #30 Discontinued Medications: Dronabinol (Dronabinol) 2.5 Mg Cap 5 MG PO TIDM for 30 Days, #90 CAP Zinc Sulfate (Zinc Sulfate) 220 Mg Cap 220 MG PO QAM for 30 Days, #30 CAP Admission Information HPI (per Admitting provider): This is a 61yo F with a PMH of endometrial cancer (chemo initiated in December 2016), HTN, depression, Factor V mutation, DM II and hypothyroidism who presents with diffuse abdominal pain and diarrhea x 3 days. Developed diffuse abdominal pain over the weekend described as aching, intermittent and non- radiating. Associated loose, watery stool multiple times a day. Has been wearing depends 2/2 incontinence. Has been nauseous but has not been vomiting. Tried to take anti-emetics at home but symptoms did not improve. Endorses some confusion as well as nausea, abdominal pain, dysuria and generalized weakness. Poor PO intake. Is unsure when her last chemo dose was. Lives with at home but has home health. Requires help with transfers and ADLs, ambulates with wheelchair. Follows with Dr. García for treatment of endometrial cancer (clear cell) was initiated in December 2016. Second cycle in January was held 2/2 thrombocytopenia but has continued to receive IV iron. Was then admitted to [facility] from01/29/2017-02/14/2017 for septic shock 2/2 e.coli pyelonephritis, HCAP , acute respiratory failure and cardiogenic shock. Required intubation. Was found to have stress-induced cardiomyopathy and CHF with an EF of 25-30% that has since improved to 65%. Was discharged on course of Levaquin for HCAP and sent to [facility] for rehab from 02/14/2017-03/12/2017. During time at [facility], was found to have swelling of her RUE and was found to have a DVT. Was started on SQ Lovenox 60mg BID. Sent home from rehab with home health and out- patient PT/OT. Per chart review, was seen by heme onc following hospital discharge and was told that due to deconditioning and current performance status , chemo cannot be restarted at this time. Has an appointment with Dr. García later this week. Denies fever, chills, headache, lightheadedness, near-syncope, visual changes, sore throat, chest pain, SOB, vomiting, constipation, focal weakness or LE swelling. Physical Exam (per Admitting): General Appearance: no apparent distress, + pertinent finding (Appears older than stated age, chronically ill appearance. ) Head: normocephalic, atraumatic Eyes: normal inspection, PERRL, sclerae normal ENT: normal ENT inspection, hearing grossly normal, pharynx normal (dry mucous membranes ) Neck: supple, thyroid normal, trachea midline Respiratory/Chest: chest non-tender, lungs clear, normal breath sounds, no respiratory distress, no accessory muscle use Cardiovascular: regular rate, rhythm, no murmur, normal peripheral pulses Abdomen/GI: non tender, soft, + tenderness (Diffusely TTP ) Extremities/Musculoskelatal: normal inspection, no calf tenderness, no pedal edema Neurologic/Psych: no motor/sensory deficits, alert, normal reflexes, oriented x 3 (Confusion with situation) Skin: normal color, warm/dry Hospital Course This is a 61 year old female with a PMH of uterine CA s/p chemotherapy (last dose in December 2016), Factor V Leiden mutation and recent RUE DVT, HTN, depression, DM2, hypothyroidism, iron deficiency anemia, gastric bypass status - recent admission to [facility] with hypotension, respiratory failure requiring ICU admission with intubation and mechanical ventilation - presents for nausea/ vomiting/diarrhea. Metabolic Encephalopathy secondary to UTI 04/03 noted to have Enterococcus Faecium VRE infection switched Vanco to Dapto consulted ID for length of treatment, Dapto vs. Zyvox 04/02 will stop Zosyn continue Vancomycin while awaiting urine culture PT/OT plan for d/c to [facility]; can d/c today if approved and bed available 04/01 urine culture - gram positive cocci, further speciation pending continue Vanc + Zosyn for now will transfer to med/surg continued PT/OT 03/31 gram positive cocci on urine culture blood cultures and stool culture still pending continue Vanc + Zosyn for now clinically improving; ordered PT/OT 03/30 patient has a UTI, slightly confused and altered recently admitted to [facility] as well as [facility] will start Vancomycin + Zosyn; to cover possible urine infection as well as GI infection cultures - gram positive cocci on urine culture will stop Marinol for now Viral Gastroenteritis Proctitis 04/[address] suggests proctitis infectious vs. chemo-induced diarrhea improving, C. diff negative, stool culture negative 03/31 abdominal radiograph suggests nonspecific enteritis patient continues to have abdominal pain in the epigastric region unable to tolerate PO diet, continues to have nausea/vomiting hypochloremic hypokalemia persists plan to obtain an abdominal CT with IV and oral contrast for further evaluation ; concern for gastric outlet obstruction vs. metastatic disease Multifactorial Anemia Iron Deficiency, B12 Deficiency, Chronic Disease patient with long-standing anemia, likely from her cancer as well as bariatric surgery Hgb on admission was 11.5, now down to 8.5; the initial number was likely falsely elevated due to dehydration will give a dose of IV Venofer now; she has been receiving this as outpatient; will give this x3 days will give an IM injection of B12, which she has also been receiving as an outpatient monitor H/H and transfuse PRN Hypothyroidism TSH is low will decrease Synthroid dose from 100mcg to 75mcg recheck TSH as outpatient in 6 weeks Uterine CA no longer receiving adjuvant chemotherapy due to mental status/diarrhea, etc. Brain MRI 03/30 - no acute process noted Sinus Rhythm with Significant Artifact continue to monitor in tele appreciate cardiology input, initially presumed to be atrial flutter, but more likely significant artifact continue Toprol XL Recent RUE DVT continue Lovenox 60mg BID FULL CODE as per patient, will need to discuss with daughter Total time spent on discharge = 45 minutes This includes examination of the patient, discharge planning, medication reconciliation, and communication with other providers. Discharge Instructions Please follow-up with your primary care physician * You will be prescribed Zyvox (antibiotic) twice a day for 9 days * Please stop taking Zinc and Marinol * Your dose of Synthroid will be changed from 100mcg to 75mcg; blood work (TSH) should be done in 4-6 weeks
[2017-04-03 14:55] VITALS: BP_SYST 102; BP_SYST 108; BP_DIAS 73; BP_DIAS 83; PULSE 73; TEMP 36.3; TEMP 36.6; O2SAT 97; O2SAT 99
[2017-04-03] MEDS ORDERED: LINEZOLID 600 MG TAB PO SCH (20:00)
== END 2017-04-03 17:00 | DRG 689 ==
LOC: EDBD 06:34 → C.EDB 06:35 → C.2E 11:51 → ENRESERV 14:15 → CANRESERV 04-01 10:21 → ENRESERV 04-01 10:31 → C.4E 04-01 11:56
PROVIDERS: ADMIT Family Medicine; ATTEND Family Medicine
DX: N39.0 Urinary tract infection, site not specified (principal); G93.41 Metabolic encephalopathy; D68.51 Activated protein C resistance; I48.92 Unspecified atrial flutter; I10 Essential (primary) hypertension; F32.9 Major depressive disorder, single episode, unspecified; E11.9 Type 2 diabetes mellitus without complications; E78.5 Hyperlipidemia, unspecified; E03.9 Hypothyroidism, unspecified; C54.1 Malignant neoplasm of endometrium; Z96.643 Presence of artificial hip joint, bilateral; E87.6 Hypokalemia; D64.9 Anemia, unspecified; A08.4 Viral intestinal infection, unspecified; E53.8 Deficiency of other specified B group vitamins; Z90.49 Acquired absence of other specified parts of digestive tract; Z86.718 Personal history of other venous thrombosis and embolism; Z98.84 Bariatric surgery status; Z83.3 Family history of diabetes mellitus; Z80.41 Family history of malignant neoplasm of ovary; Z82.49 Family history of ischemic heart disease and other diseases of the circulatory system

== ENCOUNTER 2017-04-14 21:18 | Inpatient (IN) | payer OTHER ==
[~2017-04-14] VITALS: Ht 152.4 cm; Wt 75.0 kg
[~2017-04-14 21:18] MED LIST changes: -DRON2.5C10 PO; +ENOX60IN INJ; +HYDR-5688 PO; -LEVO-459 PO; -LEVO100T PO; +LEVO75TA PO; +LINE1TAB2 PO; -PANT40TA PO; +TUMS PO; -ZNCS220 PO; -[UNRECOGNIZED DRUG - CODE] PO
[2017-04-14] MEDS ORDERED: ONDANSETRON INJ 2 MG/ML 2 ML VIAL IV STA (21:40)
--- NOTE | 2017-04-14 21:41 | EMERGENCY ROOM VISIT NOTE ---
History Report prepared by Candida: Oseas Shaffer Under the Supervision of: Dr. Dick Vargas M.D. First contact with patient: 21:26 Chief Complaint: ALTERED MENTAL STATUS Stated Complaint: AMS Nursing Triage Summary: arrived [facility] from [facility] pt has stage 4 uterine ca and is not on chemo. has been on clear liuids for days. today per staff had a decreased mental status. History of Present Illness The patient is a 61 year old white female with a past medical history of end- stage uterine cancer, diabetes, and factor 5 Leiden who presents to the ED via EMS from [facility] with a cc of worsening weakness beginning over the past few days. Positive chest pain, nausea, cough, decreased eating and drinking . Negative shortness of breath, vomiting, urinary symptoms, bowel movement changes. Per the nursing staff, the patient is not currently on chemotherapy. The patient has been noted to not be feeling well the past few days, and is probably dehydrated. The patient says that her chest pain is in the middle. Per the nursing staff, the patient was a bit altered when she arrived but she is now fine. History limited secondary to patient's weakness. Source of History: patient, nursing staff History Limited By: other (weakness) Onset: Over past few days Position: other (global) Symptom Intensity: probable dehydration Quality: other (weakness) Timing: worsening Associated Symptoms: + cough, + chest pain, + nausea, No SOB, No vomiting, No urinary symptoms (or bowel movement changes) Note: Decreased eating and drinking. Review of Systems ROS limited secondary to patient's weakness. Past Medical & Surgical Medical Problems: (1) Altered mental status (2) Anemia (3) B12 deficiency (4) Benign hypertension (5) Depression (6) Diabetes mellitus type 2 (7) Dyslipidemia (8) Encephalopathy (9) Endometrial cancer (10) Factor V Leiden mutation (11) Hypothyroidism Surgical Problems: (1) History of bilateral knee arthroplasty (2) Hx of cholecystectomy (3) Hx of gastric bypass (4) Total replacement of hip Family History Diabetes mellitus SISTER FH: CAD (coronary artery disease) MOTHER ([place]) FH: cancer MOTHER (endometrial CA) SISTER (endometrial CA or ovarian CA) Social History Smoking Status: Unknown if Ever Smoked Alcohol Use: none Drug Use: none Marital Status: Occupation Status: disabled Current/Historical Medications Scheduled Alendronate Sodium (Fosamax), 70 MG PO WK Atorvastatin (Lipitor), 40 MG PO HS Cholecalciferol (Vitamin D 1000 Unit), 4,000 INTER.UNIT PO DAILY Enoxaparin (Lovenox), 60 MG INJ BID Enteral Nutrition Formula (Boost Plus), 1 CAN PO DAILY Gabapentin (Neurontin), 300 MG PO TID Levofloxacin (Levaquin), 500 MG PO DAILY Levothyroxine Sodium (Levothyroxine Sodium), 75 MCG PO QAM Metoprolol Succ (Toprol Xl) (Toprol-Xl), 50 MG PO QAM Miconazole Nitrate (Desenex Shake Powder), 1 APPLN TD BID Ondansetron Hcl (Zofran), 8 MG PO Q8 Oseltamivir Phosphate (Tamiflu), 75 MG PO QAM Oxybutynin Chloride Er (Ditropan Xl), 10 MG PO QAM Ranitidine Hcl (Zantac), 150 MG PO BID17 Sertraline (Zoloft), 200 MG PO HS Zinc Oxide (Topical) (Desitin), 1 APPLN TD Q8 Scheduled PRN Acetaminophen (Tylenol), 1,000 MG PO Q6 PRN for Pain or Fever Bisacodyl (Dulcolax), 1 SUPP AK DAILY PRN for Constipation Calcium Carbonate (Tums), 500 MG PO Q6H PRN for HEARTBURN/INDIGESTION Dextromethorphan-Guaifenesin (Siltussin-Dm), 10 ML PO Q4H PRN for Cough Hydrocodone/Acetaminophen 5MG/325MG ([place] 5MG/325MG), 1 TAB PO Q4 PRN for Moderate Pain Ipratropium-Albuterol (Duoneb), 1 TREATMENT INH Q4H PRN for Wheezing Lorazepam (Ativan), 0.5 MG PO BID PRN for Anxiety/Agitation Menthol (Topical Analgesic) (Icy Hot), 1 APPLN TD Q6H PRN for PAIN RIGHT SHOULDER Oxycodone Hcl (Oxycodone Hcl), 5 MG PO TID PRN for Pain Sodium Phosphate/Biphosphate (Fleet Enema), 1 EA AK DAILY PRN for Constipation Trazodone Hcl (Trazodone), 100 MG PO HS PRN for Sleep Allergies Coded Allergies: No Known Allergies (Verified , 04/14/17) Physical Exam Vital Signs Date Time Temp Pulse Resp B/P (MAP) Pulse Ox O2 Delivery O2 Flow Rate FiO2 04/15/17 00:03 62 20 94/54 100 Nasal Cannula 2.0 04/14/17 22:49 69 20 102/74 100 Nasal Cannula 2.0 04/14/17 21:32 100 Room Air 04/14/17 21:27 36.7 74 18 131/77 100 Nasal Cannula 2.0 04/14/17 21:27 73 Physical Exam GENERAL: Awake, alert, nasal cannula in place, shallow breaths. HENT: Normocephalic, atraumatic. EYES: Normal conjunctiva. Sclera non-icteric. NECK: Supple. No nuchal rigidity. FROM. RESPIRATORY: CTAB, no rhonchi, wheezing, crackles CARDIAC: RRR, no MRG ABDOMEN: Soft, NTND, BS+ MSK: Port in right chest. No chest wall TTP, no LE edema NEURO: Generalized weakness throughout. AxO X2. GCS 15, CN 2-12 intact, moves all 4s on command SKIN: No rash or jaundice noted. Medical Decision & Procedures ER Provider Diagnostic Interpretation: Radiology results as stated below per my review and radiologist interpretation: CT OF THE HEAD WITHOUT CONTRAST CLINICAL HISTORY: EVALUATE WEAKNESS COMPARISON STUDY: Head CT and MRI the brain March 30, 2017. CT DOSE: 537.48 mGy.cm TECHNIQUE: Helical axial images of the head were obtained without IV contrast. Automated exposure control was utilized for the study. A dose lowering technique was utilized adhering to the principles of ALARA. FINDINGS: This exam is mildly compromised by motion artifact. No acute intracranial hemorrhage, midline shift or mass effect is present. Ventricular system is stable. Basilar cisterns are patent. There are no extra-axial collections. White matter hypodensity suggests small vessel disease. There are no findings to suggest acute dural sinus thrombosis or acute territorial infarct. There is moderate atrophy. Small amount of fluid within the left mastoid air cells is noted. IMPRESSION: 1. No acute intracranial findings. 2. Study mildly compromised by motion artifact. Electronically signed by: Rakesh Gerber M.D. 04/14/2017 10:45 PM Dictated Date/Time: 04/14/2017 10:43 PM CHEST ONE VIEW PORTABLE CLINICAL HISTORY: EVALUATE WEAKNESS COMPARISON STUDY: Chest radiograph March 30, 2017. FINDINGS: There are cholecystectomy clips as well as a right internal jugular [id number]. Lung volumes are diminished. There is no pneumothorax or pleural effusion. There is no evidence for pulmonary edema. No consolidation is identified. Moderate cardiomegaly is unchanged. IMPRESSION: No acute cardiopulmonary findings. Moderate cardiomegaly. Diminished lung volumes. Electronically signed by: Rakesh Gerber M.D. 04/14/2017 10:20 PM Dictated Date/Time: 04/14/2017 10:19 PM Laboratory Results Test 04/14/17 21:39 04/14/17 22:05 04/14/17 22:10 04/14/17 22:25 Total Bilirubin 0.4 mg/dl (0.2-1) Alanine Aminotransferase (ALT/SGPT) 13 U/L (12-78) Alkaline Phosphatase 114 U/L (45-117) Troponin I 0.015 ng/ml (0-0.045) Pro-B-Type Natriuretic Peptide 3241 pg/ml (0-900) Total Protein 5.4 gm/dl (6.4-8.2) Albumin 1.9 gm/dl (3.4-5.0) Lipase 45 U/L (73-393) Thyroid Stimulating Hormone (TSH) 8.840 uIu/ml (0.300-4.500) Urine Color YELLOW Urine Appearance CLEAR (CLEAR) Urine pH 6.5 (4.5-7.5) Urine Specific [place] 1.020 (1.000-1.030) Urine Protein TRACE (NEG) Urine Glucose (UA) NEG (NEG) Urine Ketones 1+ (NEG) Urine Occult Blood 3+ (NEG) Urine Nitrite POS (NEG) Urine Bilirubin NEG (NEG) Urine Urobilinogen NEG (NEG) Urine Leukocyte Esterase NEG (NEG) Urine WBC (Auto) 1-5 /hpf (0-5) Urine RBC (Auto) >30 /hpf (0-4) Urine Hyaline Casts (Auto) 10-30 /lpf (0-5) Urine Epithelial Cells (Auto) 10-20 /lpf (0-5) Urine Bacteria (Auto) 2+ (NEG) Activated Partial Thromboplast Time 35.9 SECONDS (21.0-31.0) Partial Thromboplastin Ratio 1.4 Venous Blood pH 7.46 (7.36-7.41) Venous Blood Partial Pressure CO2 32 mmHg (38.0-50.0) Venous Blood Partial Pressure O2 48 mmHg Venous Blood HCO3 22 mmol/L Venous Blood Oxygen Saturation 83.6 % Venous Blood Base Excess -1.0 mEq/L Lactic Acid Level 1.2 mmol/L (0.4-2.0) Direct Bilirubin < 0.1 mg/dl (0-0.2) Aspartate Amino Transf (AST/SGOT) 27 U/L (15-37) Free Thyroxine 1.32 ng/dl (0.80-1.60) Laboratory results reviewed by me Medications Administered Medications (Trade) Dose Ordered Sig/Alek Route Start Time Stop Time Status Last Admin Dose Admin Ondansetron HCl (Zofran Inj) 4 mg NOW STAT IV 04/14/17 21:40 04/14/17 21:43 DC 04/14/17 21:53 4 MG Calcium Gluconate (Calcium Gluconate 10%) 1,000 mg NOW STAT IV 04/14/17 23:29 04/14/17 23:31 DC 04/14/17 23:43 1,000 MG Potassium Chloride (Klor-Con M10) 20 meq NOW STAT PO 04/14/17 23:50 04/15/17 00:22 DC 04/15/17 00:35 20 MEQ Metoclopramide HCl (Reglan Inj) 10 mg NOW STAT IV. 04/14/17 23:55 04/14/17 23:56 DC 04/14/17 23:59 10 MG ECG Per My Interpretation Indication: weakness Rate (beats per minute): 66 Rhythm: normal sinus Findings: T-wave inversion (anterior and lateral leads), left axis deviation Comparison ECG Date: compared to 02/03/17, TWI's more pronounced ED Course 3: The patient was evaluated in room B7. A limited history and physical exam was performed. 2320: Upon reexamination, the patient was resting, and I explained to her that there was no acute change in her blood work. I discussed the test results and treatment plan with her. The patient will be evaluated for further management. 2332: Discussed the patient's case with Dr. Heriberto Jacobs single needle operator. The patient will be evaluated for further treatment and disposition. Medical Decision The patient is a 61 year old white female with a past medical history of end- stage uterine cancer, diabetes, and factor 5 Leiden who presents to the ED via EMS from [facility] with a cc of worsening weakness beginning over the past few days. Positive chest pain, nausea, cough, decreased eating and drinking . Negative shortness of breath, vomiting, urinary symptoms, bowel movement changes. Differential diagnosis: Etiologies such as metabolic, infection, hypo/hyperglycemia, electrolyte abnormalities, cardiac sources, intracerebral event, toxicologic, neurologic, as well as others were entertained. Seen and evaluted at bedside. Patient awake. Able to follow commands. Sometimes slow to respond but overall able to cooperate w/ exam and commands. Can say name and follow commands. Did complain of chest discomfort. Neuro exam w/ generalized weakness. Patient did have blood work, EKG, trop, CXR, CT brain completed. Patient d/c'ed to rehab on VRE Enteroccous meds. Patient does have R chest wall port. Chronic but stable anemia. Patient w/ mild thrombocytopenia > 120K. No spontaneous bleeding. Patient CT brain and CXR clear. Kidney function normal. Mild leukopenia, stable from prior. Discussed patient w/ family who states she is not as sharp. Potentially delirium related. Has h/o of chronic metabolic encephalopathy. Also trx'ed for UTI. All my contribute. Discussed w/ english as a second language instructor hospitalist who agreed to further eval and trx patient. Admitted to medicine service. Medication Reconcilliation Current Medication List: was personally reviewed by me Blood Pressure Screening Patient's blood pressure: Normal blood pressure Consults Time Called: [phone] Consulting Physician: Dr. Heriberto Jacobs single needle operator Returned Call: [phone] Discussed the patient's case with Dr. Heriberto Jacobs single needle operator. The patient will be evaluated for further treatment and disposition. Impression Primary Impression: Altered mental status Additional Impressions: Weakness Dehydration Scribe Attestation The scribe's documentation has been prepared under my direction and personally reviewed by me in its entirety. I confirm that the note above accurately reflects all work, treatment, procedures, and medical decision making performed by me. Departure Information Dispostion Being Evaluated By Hospitalist Referrals Pablo Holland D.O. (PCP) Patient Instructions My [facility] Problem Qualifiers Primary Impression: Altered mental status Altered mental status type: unspecified Qualified Codes: R41.82 - Altered mental status, unspecified
[2017-04-14 21:50] LABS: BASO % 0.3 %; BASO ABS # 0.01 K/uL (0-0.2); HEMATOCRIT 31.2 % (37-47); HEMOGLOBIN 9.6 g/dL (12.0-16.0); LYMPH % 24.8 %; LYMPH ABS # 0.83 K/uL (1.2-3.4); MEAN CELL VOLUME 96.3 fL (80-100); MEAN CORPUSCULAR HEMOGLOBIN 29.6 pg (25-34); MEAN CORPUSCULAR HGB CONC 30.8 g/dl (32-36); MEAN PLATELET VOLUME 10.5 fL (7.4-10.4); MONO % 6.9 %; MONO ABS # 0.23 K/uL (0.11-0.59); NEUT ABS # 2.18 K/uL (1.4-6.5); PLATELET COUNT 129 K/uL (130-400); RED CELL DISTRIBUTION WIDTH CV 15.6 % (11.5-14.5); RED CELL DISTRIBUTION WIDTH SD 55.2 fL (36.4-46.3); WHITE BLOOD COUNT 3.35 K/uL (4.8-10.8)
--- NOTE | 2017-04-14 22:22 | DIAGNOSTIC IMAGING REPORT ---
CHEST ONE VIEW PORTABLE CLINICAL HISTORY: EVALUATE WEAKNESS COMPARISON STUDY: Chest radiograph March 30, 2017. FINDINGS: There are cholecystectomy clips as well as a right internal jugular [id number]. Lung volumes are diminished. There is no pneumothorax or pleural effusion. There is no evidence for pulmonary edema. No consolidation is identified. Moderate cardiomegaly is unchanged. IMPRESSION: No acute cardiopulmonary findings. Moderate cardiomegaly. Diminished lung volumes. Electronically signed by: Rakesh Gerber M.D. 04/14/2017 10:20 PM Dictated Date/Time: 04/14/2017 10:19 PM
[2017-04-14 22:23] LABS: ALBUMIN 1.9 gm/dl (3.4-5.0); ALKALINE PHOSPHATASE 114 U/L (45-117); ALT/SGPT 13 U/L (12-78); BLOOD UREA NITROGEN 9 mg/dl (7-18); CALCIUM 7.6 mg/dl (8.5-10.1); CARBON DIOXIDE 21 mmol/L (21-32); CREATININE 0.65 mg/dl (0.60-1.20); GLUCOSE 80 mg/dl (70-99); SODIUM 140 mmol/L (136-145); TOTAL PROTEIN 5.4 gm/dl (6.4-8.2)
[2017-04-14 22:29] LABS: INR 1.1 (0.9-1.1); PTT PATIENT 35.9 SECONDS (21.0-31.0)
[2017-04-14 22:32] LABS: LIPASE 45 U/L (73-393)
--- NOTE | 2017-04-14 22:46 | DIAGNOSTIC IMAGING REPORT ---
CT OF THE HEAD WITHOUT CONTRAST CLINICAL HISTORY: EVALUATE WEAKNESS COMPARISON STUDY: Head CT and MRI the brain March 30, 2017. CT DOSE: 537.48 mGy.cm TECHNIQUE: Helical axial images of the head were obtained without IV contrast. Automated exposure control was utilized for the study. A dose lowering technique was utilized adhering to the principles of ALARA. FINDINGS: This exam is mildly compromised by motion artifact. No acute intracranial hemorrhage, midline shift or mass effect is present. Ventricular system is stable. Basilar cisterns are patent. There are no extra-axial collections. White matter hypodensity suggests small vessel disease. There are no findings to suggest acute dural sinus thrombosis or acute territorial infarct. There is moderate atrophy. Small amount of fluid within the left mastoid air cells is noted. IMPRESSION: 1. No acute intracranial findings. 2. Study mildly compromised by motion artifact. Electronically signed by: Rakesh Gerber M.D. 04/14/2017 10:45 PM Dictated Date/Time: 04/14/2017 10:43 PM
[2017-04-14 22:54] LABS: POTASSIUM 3.3 mmol/L (3.5-5.1)
[2017-04-14 23:00] LABS: AST/SGOT 27 U/L (15-37)
[2017-04-14] MEDS ORDERED: CALCIUM GLUCONATE 10% 10 ML VIAL IV STA (23:29)
[2017-04-14] MEDS ORDERED: POTASSIUM CHLORIDE 10 MEQ TABCR PO STA (23:50)
[2017-04-14] MEDS ORDERED: METOCLOPRAMIDE HCL INJ 5 MG/ML 2 ML VIAL IV. STA (23:55)
[2017-04-14] MEDS ORDERED: SODIENE PR (23:58)
[2017-04-14] MEDS ORDERED: LEVO1TAB33 PO (23:58)
[2017-04-14] MEDS ORDERED: LEVO75TA5 PO (23:58)
[2017-04-14] MEDS ORDERED: OSEL75CA23 PO (23:58)
[2017-04-14] MEDS ORDERED: LORA-741 PO (23:58)
[2017-04-14] MEDS ORDERED: OXYC1CAP5 PO (23:58)
[2017-04-14] MEDS ORDERED: IPRASOL4 INH (23:58)
[2017-04-14] MEDS ORDERED: TRAZ100T29 PO (23:58)
[2017-04-14] MEDS ORDERED: RANI150T3 PO (23:58)
[2017-04-14] MEDS ORDERED: ZINC40OI13 TD (23:58)
[2017-04-14] MEDS ORDERED: MCTP/85 TD (23:58)
[2017-04-14] MEDS ORDERED: CALC500C3 PO (23:58)
[2017-04-14] MEDS ORDERED: DEXTSYP29 PO (23:58)
[2017-04-14] MEDS ORDERED: OXYB10TA PO (23:58)
[2017-04-14] MEDS ORDERED: NUTR-25 PO (23:58)
[2017-04-14] MEDS ORDERED: BISA10SU3 PR (23:58)
[2017-04-14] MEDS ORDERED: MENT7.5M TD (23:58)
[2017-04-15] MEDS ORDERED: INSULIN ASPART 100 UNITS/ML 3 ML PEN SC ONE (00:40)
[2017-04-15] MEDS ORDERED: GLUCOSE 40% GEL 15 GM TUBE PO PRN (00:45)
[2017-04-15] MEDS ORDERED: MoRPHine SULFATE 2 MG/ML CARP IV PRN (00:45)
[2017-04-15] MEDS ORDERED: TRAZODONE HCL 100 MG TAB PO PRN (00:45)
[2017-04-15] MEDS ORDERED: GLUCOSE 10 TABS/TUBE PO PRN (00:45)
[2017-04-15] MEDS ORDERED: DEXTROSE 50% 50 ML SYR IV PRN (00:45)
[2017-04-15] MEDS ORDERED: GLUCAGON FOR INJ 1 MG VIAL SQ PRN (00:45)
[2017-04-15] MEDS ORDERED: PROCHLORPERAZINE INJ 5 MG in SYRINGE 4 ML IV PRN (00:45)
[2017-04-15] MEDS ORDERED: OPTIRAY 320 IV PRN (00:45)
[2017-04-15] MEDS ORDERED: IV FLUIDS COMPLETED PRN (01:00)
[2017-04-15] MEDS ORDERED: D5W AND LACTATED RINGERS 1,000 ML IV SCH (01:00)
[2017-04-15] MEDS: INSULIN ASPART 100 UNITS/ML 3 ML PEN SC SCH ×5 (02:00→21:00)
[2017-04-15] MEDS ORDERED: LACTATED RINGER'S 1000ML 1,000 ML IV ONE (02:00)
[2017-04-15 02:59] VITALS: BP 104/70; PULSE 72; TEMP 36.5; O2SAT 100
--- NOTE | 2017-04-15 04:09 | HISTORY & PHYSICAL EXAMINATION ---
DATE OF ADMISSION: 04/15/2017 PRIMARY CARE DOCTOR: Dr. Evita Escalante. CHIEF COMPLAINT: Nausea, abdominal pain as per the patient, altered mental status as per records. HISTORY OF PRESENT ILLNESS: History obtained from patient, daughter, and records. Limited history from the patient secondary to confusion. Medical history significant for HTN, hyperlipidemia, paroxysmal atrial flutter as per records. DM2, diet controlled, uterine cancer status post chemotherapy, history of bariatric surgery, chronic anemia (baseline hemoglobin 9), right upper extremity DVT, ongoing Lovenox anticoagulation, hypercoagulable state, history of VRE UTI status post recent treatment Recent confinement 2 weeks ago for encephalopathy, VRE UTI. Patient discharged to [facility] for rehab on Zyvox Rx. As per records, yesterday the patient noted to have intermittent episodes of confusion -has happened during previous admissions at [facility] and hospital stays as per records. Visual hallucinations as per daughter. Patient complaining of achy epigastric pain, nausea, vomiting. Possible fever, no account of cough symptoms. Patient denies chest pain or shortness of breath. Outpatient Chest x-ray showed atelectasis, started on Levaquin for possible pneumonia Outpatient lab work showed thrombocytopenia, platelet count 124. Patient's family requested transfer to ER for evaluation. MEDICAL HISTORY: As above. SURGERIES: She has had section, gastric bypass surgery, hysteroscopy, hernia surgery, bilateral tubal ligation, knee surgery, cholecystectomy, liver biopsy. HOME MEDICATIONS: Include Fleet enema, trazodone, zinc oxide, Zofran, Ditropan, oxycodone, Zantac, Zoloft, levothyroxine, Ativan, Levaquin, metoprolol, Desenex, Lovenox 60 b.i.d., Boost, Neurontin, Vicodin, DuoNeb. Oxybutynin ALLERGIES: No known drug allergies. FAMILY HISTORY: Could not be obtained. PERSONAL AND SOCIAL HISTORY: Nonsmoker, no chronic intake of alcoholic beverages. Disabled. REVIEW OF SYSTEMS: Could not be reliably obtained. PHYSICAL EXAMINATION: VITAL SIGNS: Blood pressure was noted to be 108/70, pulse rate 80, RR 18, 36.3, sats 99 on room air. GENERAL: Noted to be disoriented, respiratory distress, obese. SKIN: Pallor, warm. HEENT: Alopecia. Pale palpebral conjunctivae. No ptosis. Dry mucosa. NECK: Short, supple. CHEST: Decreased effort. No tenderness. HEART: Regular rate and rhythm, no murmur. ABDOMEN: Some distention, epigastric tenderness. EXTREMITIES: Minimal LE edema noted. No gross deformities. No tenderness NEUROLOGIC: Disoriented. No gross focality. Gait and stance not assessed. LABORATORY DATA: Hemoglobin was noted to be 9.6, hematocrit 31.2, white cell count 3.35, platelets 129. Sodium 140, potassium 3.3, chloride 108, CO2 of 21, BUN 9, creatinine 0.6, glucose 80. Ammonia level was noted to be normal. Hemoglobin A1c from 01/[address] head, no acute pathology. Chest x-ray showed diminished lung volumes, cardiomegaly. EKG as per my interpretation NSR, LAD, LAFB, diffuse T-wave inversions ASSESSMENT: 1. Episodic encephalopathy ? Medication related (patient on some home neuro-psychotropic, anticholinergic home meds) Rule out urinary tract infection. (recent VRE sp tx) 2. Abdominal pain, nausea, vomiting rule out bowel obstruction. history multiple abdominal surgeries 3. Hypokalemia secondary to above 4. Thrombocytopenia, rule out heparin-induced thrombocytopenia. recent hx DVT ongoing anticoagulation with Lovenox. 5. Hypertension. Blood pressure on the lower side. 6. DM2, diet controlled, well controlled as of recent inpatient hemoglobin A1c. 7. Chronic anemia, hemoglobin at baseline. 8. Uterine cancer, status post incomplete chemotherapy secondary to intolerance. PLAN: OBS GMF CT abdomen and pelvis. Follow UA Hold home Neurontin, Trazodone, oxybutynin for sedation/confusion. (Home med rec may need inclusion of hold for sedation parameters for aforementioned home meds up on discharge.) Replace potassium. HIT screen. ISS BG goal 140-180 DVT prophylaxis, Lovenox subcutaneous if HIT screen negative Full code. Patient's daughter was updated on plan of care over the phone. Miss Nedra Mendes at [phone]. [facility]
[2017-04-15 04:38] VITALS: BP 118/68; PULSE 66; TEMP 36.9; O2SAT 100; BMI 30.5
[2017-04-15] MEDS: LEVOTHYROXINE 75 MCG TAB PO SCH (05:35)
[2017-04-15] MEDS: ACETAMINOPHEN 325 MG TAB PO PRN ×2 (05:36→11:33)
[2017-04-15 05:44] LABS: HEMATOCRIT 31.5 % (37-47); HEMOGLOBIN 9.8 g/dL (12.0-16.0); MEAN CELL VOLUME 98.1 fL (80-100); MEAN CORPUSCULAR HEMOGLOBIN 30.5 pg (25-34); MEAN CORPUSCULAR HGB CONC 31.1 g/dl (32-36); RED CELL DISTRIBUTION WIDTH CV 15.7 % (11.5-14.5); RED CELL DISTRIBUTION WIDTH SD 56.4 fL (36.4-46.3); WHITE BLOOD COUNT 3.83 K/uL (4.8-10.8)
[2017-04-15] MEDS ORDERED: PNEUMOCOCCAL POLYSACCHARIDES 25 MCG/0.5 ML VIAL/SYR IM. ONE (06:15)
[2017-04-15] MEDS ORDERED: PNEUMOCOCCAL ADMINISTRATION CHARGE ONE (06:15)
[2017-04-15 06:23] LABS: BASO % 0.5 %; BASO ABS # 0.02 K/uL (0-0.2); EOS % 2.1 %; EOS ABS # 0.08 K/uL (0-0.5); LYMPH % 20.1 %; LYMPH ABS # 0.77 K/uL (1.2-3.4); MONO % 5.7 %; MONO ABS # 0.22 K/uL (0.11-0.59); NEUT % 71.6 %; NEUT ABS # 2.74 K/uL (1.4-6.5); PLATELET COUNT 93 K/uL (130-400)
[2017-04-15 06:24] LABS: CALCIUM 7.6 mg/dl (8.5-10.1); CREATININE 0.66 mg/dl (0.60-1.20); POTASSIUM 3.8 mmol/L (3.5-5.1)
[2017-04-15] MEDS ORDERED: PIPERACILLIN/TAZOBACTAM 4.5 GM/100ML D5W IV STA (07:18)
[2017-04-15 07:25] VITALS: BP 108/68; PULSE 56; TEMP 36.4; O2SAT 97
--- NOTE | 2017-04-15 07:29 | DIAGNOSTIC IMAGING REPORT ---
ABD/PELVIS IV CONTRAST ONLY CLINICAL HISTORY: 61 years-old Female presenting with abd pain; hx abd surgery. TECHNIQUE: Multidetector CT of the abdomen and pelvis was performed after the administration of intravenous contrast. IV contrast: None. A dose lowering technique was used consistent with the principles of ALARA (as low as reasonably achievable). COMPARISON: None. CT DOSE (mGy.cm): The estimated cumulative dose is 936.06 mGycm. FINDINGS: Side Laster Tack topogram: Cholecystectomy clips and intramedullary nail fixation of the left femoral neck and proximal metadiaphysis. Lung bases: Minimal basilar opacities, likely atelectasis. Mild multichamber enlargement of the heart. Coronary artery calcification. No pericardial or pleural effusion. Liver: Congenital hypoplasia of the medial segments of the left hepatic lobe. Density consistent with hepatic steatosis. Ill-defined hypodense lesions in the left hepatic lobe, which are more prominent on the current exam and may have increased in size (series 3 images 87-93). Patent hepatic vasculature. Biliary: Mild biliary ductal prominence likely a reservoir effect in the post cholecystectomy state. Gallbladder surgically absent. Pancreas: Moderate parenchymal atrophy. Spleen: Normal. Adrenal glands: Normal. Kidneys and ureters: Normal. No hydronephrosis. Bladder: Normal. Pelvic organs: Hypodense round lesion at the uterine fundus likely fibroid. The ovaries are likely atrophic. Bowel: Persistent abnormal wall thickening of the rectum with slight interval decrease in infiltration of the mesorectal fat and presacral space. No gross evidence of soft tissue nodularity in the mesorectal fat. The abnormal wall thickening does not extend to the peritoneal reflection but may involve the anorectal junction. No bowel obstruction. The appendix is normal. Postsurgical changes of retrocolic Andre-en-Y gastric bypass without evidence of complication. Peritoneal cavity: No free fluid or intraperitoneal gas. Lymph nodes: Few subcentimeter lymph nodes in the portacaval region, likely reactive. No pathologically enlarged lymph nodes in the abdomen or pelvis including the mesorectal fat. Vasculature: Atherosclerosis of the normal caliber abdominal aorta. IVC patent. Abdominal wall: Multiple foci of gas and infiltration in the abdominal wall likely relates to injection was. Scarring noted in the midline abdomen with trace amount of fluid. Mild body wall edema. Musculoskeletal: Degenerative changes of the spine. Postsurgical changes of intramedullary nail fixation of the left femoral neck and proximal metadiaphysis. IMPRESSION: 1. Persistent abnormal rectal wall thickening despite slight interval decrease in surrounding inflammatory change. This is most suspicious for neoplasm, although an infectious etiology is possible. Direct visualization is recommended. No lymphadenopathy. 2. Slight interval increase in conspicuity of irregular lesions within the left hepatic lobe. Given the presence of rectal wall thickening, these lesions raise concern for metastatic disease. These are incompletely characterized on the single phase examination. 3. Postsurgical changes of Andre-en-Y gastric bypass without evidence of complication. 4. Hepatic steatosis. The report will be called/faxed according to standard departmental protocol. Electronically signed by: Devaughn Ozuna M.D. 04/15/2017 7:28 AM Dictated Date/Time: 04/15/2017 6:49 AM
[2017-04-15] MEDS: METOPROLOL SUCC 50MG EXT REL TAB PO SCH (07:40)
[2017-04-15] MEDS: GABAPENTIN 300 MG CAP PO SCH ×3 (07:40→20:18)
[2017-04-15] MEDS: HYDROCODONE/ACETAMIN 5/325MG TAB PO PRN ×3 (07:40→20:17)
[2017-04-15] MEDS: RANITIDINE HCL 150 MG TAB PO SCH ×2 (07:41→16:17)
[2017-04-15 07:45] VITALS: PULSE 62
[2017-04-15] MEDS ORDERED: PIPERACILL/TAZOBAC IV 4.5 GM in DEXTROSE 5% 100ML IV ONE (07:45)
[2017-04-15] MEDS ORDERED: PIPERACILL/TAZOBAC CONSULT ACTIVE PRN (08:00)
[2017-04-15] MEDS ORDERED: MICONAZOLE NITRATE POWDER 43 GM EXT PRN (08:00)
[2017-04-15] MEDS: ENOXAPARIN 60 MG/0.6 ML SYR SQ SCH ×2 (09:51→20:19)
--- NOTE | 2017-04-15 10:15 | Gastrointestinal Consultation ---
Gastrointestinal Consultation Date of Consultation: Apr 15, 2017 Attending Physician: Erika Consulting Physician: Peterson Reason for Consultation: radiation proctitis History of Present Illness Patient is a 61 year old female PMH significant for endometrial cancer w/ chemo initiated in December 2016, obesity history of RYGB with others listed below who presented through the ED for diarrhea and abdominal pain. GI was asked to evaluate the pt due to abnormal CT imaging. Pt was seen and evalauted, chart reviewed. Pt is known from previous admission about a month ago with similar symptoms. At that time, plan for outpatient colonoscopy was arranged. Pt notes that her loose stools returned w/ abdominal pain and cramping. She is unsure how often she is having a BM but notes its frequent throughout the day. No rectal pain. No BRBPR or melena. No nausea, vomiting. No fever, chills. Prior to this, she was recently admitted to [facility] for septic shock, e.coli pyelo w/ acute respiratory failure requiring intubation. She had a CT scan 03/31 w/ rectal wall thickening, as she had a colonoscopy in 2015, the decision was made for an OP colonoscopy. CT scan this admission w/ persistent rectal wall thickening w/ an irregular lesion in the left hepatic lobe of the liver CT ABD/Pelvis 04/14/17: Persistent abnormal rectal wall thickening despite slight interval decrease in surrounding inflammatory change. This is most suspicious for neoplasm, although an infectious etiology is possible. Direct visualization is recommended. No lymphadenopathy. Slight interval increase in conspicuity of irregular lesions within the left hepatic lobe. Given the presence of rectal wall thickening, these lesions raise concern for metastatic disease. These are incompletely characterized on the single phase examination. Postsurgical changes of Andre-en-Y gastric bypass without evidence of complication. Hepatic steatosis. CT ABD/Pelvis 03/31/17: Extensive wall thickening of the lower rectum and anus with surrounding inflammatory change. This is most concerning for proctitis, likely infectious.However, this should be followed to resolution with consideration for follow-updirect visualization to exclude underlying neoplasm. No lymphadenopathy. Chronic region of scarring in the right anterior abdominal wall with focal fluid. This may represent a chronic sinus tract. No clear intraperitonealextension to suggest fistula. Postsurgical changes of retrocolic Andre-en-Y gastric bypass. No bowel obstruction. Hepatic steatosis suggested. Colonoscopy 07/01: Preparation of the colon was poor.One 4 mm polyp in the cecum. Resected and retrieved. One 7 mm polyp in the transverse colon. Resected and retrieved. Stool from splenic flexure to cecum.The distal rectum and anal verge are normal onretroflexion view. Past Medical/Surgical History Medical Problems: (1) Altered mental status Status: Acute (2) Anemia Status: Chronic (3) B12 deficiency Status: Chronic (4) Benign hypertension Status: Chronic (5) Dehydration Status: Acute (6) Depression Status: Chronic (7) Diabetes mellitus type 2 Status: Chronic (8) Dyslipidemia Status: Chronic (9) Endometrial cancer Status: Chronic (10) Factor V Leiden mutation Status: Chronic (11) Hypokalemia Status: Acute (12) Hypokalemia Status: Acute (13) Hypothyroidism Status: Chronic (14) Nausea vomiting and diarrhea Status: Acute (15) Nausea, vomiting and diarrhea Status: Acute (16) UTI (urinary tract infection) Status: Acute (17) Weakness Status: Acute Past Medical History: uterine CA, BENNY, gastric bypass, Factor V Leiden mutation, DVT, HTN, depression , T2DM, hypothyroidism, depression Past Surgical History: cholecystectomy, gastric bypass, total hip, bilateral knee arthroplasty Family History Diabetes mellitus SISTER FH: CAD (coronary artery disease) MOTHER (MS) FH: cancer MOTHER (endometrial CA) SISTER (endometrial CA or ovarian CA) Social History Smoking Status: Never Smoker Alcohol Use: none Drug Use: none Marital Status: Occupation Status: disabled Allergies Coded Allergies: No Known Allergies (Verified , 04/14/17) Current Medications Home Meds and Scripts Medications Dose Route/Sig Max Daily Dose Days Date Category Dose Instructions Desenex Shake Powder (Miconazole Nitrate) 90 Appln/90 Gm Powd 1 Appln TD BID 04/14/17 Reported APPLIED TO ABD FOLDS. Desitin (Zinc Oxide (Topical)) 40 % Oin 1 Appln TD Q8 04/14/17 Reported APPLY TO BUTTOCKS Dulcolax (Bisacodyl) 10 Mg Sup 1 Supp OR DAILY PRN 04/14/17 Reported Fleet Enema (Sodium Phosphate/Biphosphate) Adela 1 Ea OR DAILY PRN 04/14/17 Reported Zantac (Ranitidine HCl) 150 Mg Tab 150 Mg PO BID17 04/14/17 Reported Oxycodone Hcl 5 Mg Cap 5 Mg PO TID PRN 30 04/14/17 Reported Levaquin (Levofloxacin) 500 Mg Tab 500 Mg PO DAILY 7 04/14/17 Reported STARTED 04/14/17 FOR 10 DAYS. Boost Plus (Enteral Nutrition Formula) 1 Can Liqd 1 Can PO DAILY 04/14/17 Reported Siltussin-Dm (Dextromethorphan-Guaifenesin) 1 Syp Syp 10 Ml PO Q4H PRN 04/14/17 Reported Tamiflu (Oseltamivir Phosphate) 75 Mg Cap 75 Mg PO QAM 04/14/17 Reported STARTED 04/12/17 FOR 10 DAYS. Duoneb (Ipratropium-Albuterol) 3 Ml Nebu 1 Treatment INH Q4H PRN 04/14/17 Reported Icy Hot (Menthol (Topical Analgesic)) 7.5 % Mis 1 Appln TD Q6H PRN 04/14/17 Reported Trazodone (Trazodone HCl) 100 Mg Tab 100 Mg PO HS PRN 04/14/17 Reported Ativan (Lorazepam) 0.5 Mg Tab 0.5 Mg PO BID PRN 04/14/17 Reported Levothyroxine Sodium 75 Mcg Tab 75 Mcg PO QAM 90 04/14/17 Reported Tums (Calcium Carbonate) 500 Mg Chew 500 Mg PO Q6H PRN 04/14/17 Reported Ditropan Xl (Oxybutynin Chloride) 10 Mg Tab 10 Mg PO QAM 04/14/17 Reported Rittman 5MG/325MG (Acetaminophen/Hydrocodone Bitart) Tab 1 Tab PO Q4 PRN 30 03/30/17 Reported PRN PAIN Lovenox (Enoxaparin Sodium) 60 Mg/0.6 Ml Inj 60 Mg INJ BID 03/30/17 Reported Zofran (Ondansetron Hcl) 8 Mg Tab 8 Mg PO Q8 01/29/17 Reported Tylenol (Acetaminophen) 500 Mg Tab 1,000 Mg PO Q6 PRN 01/29/17 Reported Toprol-Xl (Metoprolol Succinate) 50 Mg Tabcr 50 Mg PO QAM 01/08/17 Reported Zoloft (Sertraline HCl) 100 Mg Tab 200 Mg PO HS 12/25/16 Reported Lipitor (Atorvastatin Calcium) 40 Mg Tab 40 Mg PO HS 12/25/16 Reported Neurontin (Gabapentin) 300 Mg Cap 300 Mg PO TID 12/25/16 Reported Vitamin D 1000 Unit (Cholecalciferol) 1,000 Unit Cap 4,000 Inter.unit PO DAILY 05/11/13 Reported Fosamax (Alendronate Sodium) 70 Mg Tab 70 Mg PO WK 05/11/13 Reported TAKE THIS MEDICATION EVERY THURSDAY WITH 8 OUNCES OF WATER, 30 MINUTES BEFORE FIRST MEAL OF THE DAY. REMAIN UPRIGHT FOR 30 MINUTES AFTER TAKING. Review of Systems Constitutional: + weight loss, + weakness, No fever, No chills, No sweats, No fatigue Respiratory: No cough, No sputum, No wheezing, No shortness of breath, No dyspnea on exertion Cardiac: No chest pain, No edema Abdomen: + diarrhea, No pain, No nausea, No vomiting, No constipation, No GI bleeding, No dysphagia, No odynophagia, No jaundice, No dark urine Skin: No rash, No itch, No color change, No jaundice Physical Exam Date Time Temp Pulse Resp B/P (MAP) Pulse Ox O2 Delivery O2 Flow Rate FiO2 04/15/17 08:00 Room Air 04/15/17 07:45 62 04/15/17 07:25 36.4 56 12 108/68 (81) 97 Room Air 04/15/17 04:38 36.9 66 18 118/68 100 Nasal Cannula 2.0 04/15/17 02:59 36.5 72 18 104/70 (81) 100 Nasal Cannula 1.0 04/15/17 01:07 74 20 124/65 100 04/15/17 00:03 62 20 94/54 100 Nasal Cannula 2.0 04/14/17 22:49 69 20 102/74 100 Nasal Cannula 2.0 04/14/17 21:32 100 Room Air 04/14/17 21:27 36.7 74 18 131/77 100 Nasal Cannula 2.0 04/14/17 21:27 73 General Appearance: + pertinent finding (chronically ill appearing) Eyes: PERRL ENT: hearing grossly normal Neck: supple, no JVD, trachea midline Respiratory/Chest: lungs clear, normal breath sounds, no respiratory distress, no accessory muscle use Cardiovascular: regular rate, rhythm, no gallop, no JVD, no murmur Abdomen: normal bowel sounds, non tender, soft, no organomegaly, no pulsatile mass Neurologic/Psych: alert, normal mood/affect, oriented x 3 Skin: normal color, no jaundice, warm/dry, no rash Laboratory Results Last 24 Hours Test 04/14/17 21:39 04/14/17 22:05 04/14/17 22:10 04/14/17 22:25 White Blood Count 3.35 K/uL Red Blood Count 3.24 M/uL Hemoglobin 9.6 g/dL Hematocrit 31.2 % Mean Corpuscular Volume 96.3 fL Mean Corpuscular Hemoglobin 29.6 pg Mean Corpuscular Hemoglobin Concent 30.8 g/dl Platelet Count 129 K/uL Mean Platelet Volume 10.5 fL Neutrophils (%) (Auto) 65.0 % Lymphocytes (%) (Auto) 24.8 % Monocytes (%) (Auto) 6.9 % Eosinophils (%) (Auto) 3.0 % Basophils (%) (Auto) 0.3 % Neutrophils # (Auto) 2.18 K/uL Lymphocytes # (Auto) 0.83 K/uL Monocytes # (Auto) 0.23 K/uL Eosinophils # (Auto) 0.10 K/uL Basophils # (Auto) 0.01 K/uL RDW Standard Deviation 55.2 fL RDW Coefficient of Variation 15.6 % Immature Granulocyte % (Auto) 0.0 % Immature Granulocyte # (Auto) 0.00 K/uL Sodium Level 140 mmol/L Potassium Level mmol/L 3.3 mmol/L Chloride Level 108 mmol/L Carbon Dioxide Level 21 mmol/L Anion Gap 10.0 mmol/L Blood Urea Nitrogen 9 mg/dl Creatinine 0.65 mg/dl Est Creatinine Clear Calc Drug Dose 95.1 ml/min Estimated GFR () 112.6 Estimated GFR (Non- 97.2 BUN/Creatinine Ratio 13.8 Random Glucose 80 mg/dl Calcium Level 7.6 mg/dl Magnesium Level mg/dl 1.9 mg/dl Total Bilirubin 0.4 mg/dl Direct Bilirubin mg/dl < 0.1 mg/dl Aspartate Amino Transf (AST/SGOT) U/L 27 U/L Alanine Aminotransferase (ALT/SGPT) 13 U/L Alkaline Phosphatase 114 U/L Troponin I 0.015 ng/ml Pro-B-Type Natriuretic Peptide 3241 pg/ml Total Protein 5.4 gm/dl Albumin 1.9 gm/dl Lipase 45 U/L Thyroid Stimulating Hormone (TSH) 8.840 uIu/ml Urine Color YELLOW Urine Appearance CLEAR Urine pH 6.5 Urine Specific Pauline 1.020 Urine Protein TRACE Urine Glucose (UA) NEG Urine Ketones 1+ Urine Occult Blood 3+ Urine Nitrite POS Urine Bilirubin NEG Urine Urobilinogen NEG Urine Leukocyte Esterase NEG Urine WBC (Auto) 1-5 /hpf Urine RBC (Auto) >30 /hpf Urine Hyaline Casts (Auto) 10-30 /lpf Urine Epithelial Cells (Auto) 10-20 /lpf Urine Bacteria (Auto) 2+ Prothrombin Time 11.4 SECONDS Prothromb Time International Ratio 1.1 Activated Partial Thromboplast Time 35.9 SECONDS Partial Thromboplastin Ratio 1.4 Venous Blood pH 7.46 Venous Blood Partial Pressure CO2 32 mmHg Venous Blood Partial Pressure O2 48 mmHg Venous Blood HCO3 22 mmol/L Venous Blood Oxygen Saturation 83.6 % Venous Blood Base Excess -1.0 mEq/L Lactic Acid Level 1.2 mmol/L Free Thyroxine 1.32 ng/dl Test 04/15/17 00:59 04/15/17 02:01 04/15/17 05:29 04/15/17 08:22 Ammonia 11.0 umol/L Total Triiodothyronine 0.70 ng/ml Heparin-PF4 Antibody Screen NEG Bedside Glucose 86 mg/dl 117 mg/dl White Blood Count 3.83 K/uL Red Blood Count 3.21 M/uL Hemoglobin 9.8 g/dL Hematocrit 31.5 % Mean Corpuscular Volume 98.1 fL Mean Corpuscular Hemoglobin 30.5 pg Mean Corpuscular Hemoglobin Concent 31.1 g/dl Platelet Count 93 K/uL Mean Platelet Volume 9.0 fL Neutrophils (%) (Auto) 71.6 % Lymphocytes (%) (Auto) 20.1 % Monocytes (%) (Auto) 5.7 % Eosinophils (%) (Auto) 2.1 % Basophils (%) (Auto) 0.5 % Neutrophils # (Auto) 2.74 K/uL Lymphocytes # (Auto) 0.77 K/uL Monocytes # (Auto) 0.22 K/uL Eosinophils # (Auto) 0.08 K/uL Basophils # (Auto) 0.02 K/uL RDW Standard Deviation 56.4 fL RDW Coefficient of Variation 15.7 % Immature Granulocyte % (Auto) 0.0 % Immature Granulocyte # (Auto) 0.00 K/uL Platelet Estimate DECREASED Sodium Level 140 mmol/L Potassium Level 3.8 mmol/L Chloride Level 109 mmol/L Carbon Dioxide Level 24 mmol/L Anion Gap 7.0 mmol/L Blood Urea Nitrogen 8 mg/dl Creatinine 0.66 mg/dl Est Creatinine Clear Calc Drug Dose 80.6 ml/min Estimated GFR () 112.1 Estimated GFR (Non- 96.7 BUN/Creatinine Ratio 12.8 Random Glucose 91 mg/dl Calcium Level 7.6 mg/dl Impression 61 year old female admitted for diarrhea, there was a plan for an OP colonoscopy. Pt was re-admitted w/ similar symptoms, CT imaging w/ persistent rectal wall thickening and now w/ a concern for a liver lesion. She will need colonoscopy w/ visualization of rectal wall thickening Plan - Stool culture, c.diff - Clear liquid diet today - Prep w/ colytely - NPO after midnight - Colonoscopy tomorrow - Will need PT/INR and plt in the morning - Will need Fleets today at 1400 and again at 1900 - Can start colytely at 1600 - GI to follow, please call with any questions or concerns ATTESTATION: I have performed a history and physical examination of this patient and reviewed the electronic record. Specifically, on physical examination patient is somnolent without abdominal tenderness. I have discussed the case with KEYON Wooten. The above note reflects my findings, conclusions, and recommendations. Cesar Winkler MD
[2017-04-15 12:32] VITALS: Ht 152.4 cm; Wt 75.0 kg
[2017-04-15] MEDS: PIPERACILL/TAZOBAC IV 3.375 GM in DEXTROSE 5% 100ML IV SCH ×2 (12:44→20:16)
[2017-04-15] MEDS ORDERED: SOD PHOSPHATE/SOD BIPHOSPHATE ENEMA 132 ML BTL PR ONE ×2 (14:00→19:00)
[2017-04-15 14:22] VITALS: BP 125/73; PULSE 53; TEMP 36.3; O2SAT 100
[2017-04-15] MEDS ORDERED: LAVAGE SOLUTION 4000ML PO SCH (16:00)
--- NOTE | 2017-04-15 18:23 | Progress Note ---
Subjective Date of Service: Apr 15, 2017. Subjective Pt evaluation today including: conversation w/ patient, physical exam, lab review, review of studies, review of inpatient medication list Saw/examined the patient in room 418 She is anxious and tearful during exam, stating she is scared she knows about the plan for colonoscopy in AM she has been prepping for the colonoscopy denies any shortness of breath/chest pain +abdominal pain, +diarrhea, +weakness Problem List Medical Problems: (1) Altered mental status Status: Acute (2) Anemia Status: Chronic (3) B12 deficiency Status: Chronic (4) Benign hypertension Status: Chronic (5) Dehydration Status: Acute (6) Depression Status: Chronic (7) Diabetes mellitus type 2 Status: Chronic (8) Dyslipidemia Status: Chronic (9) Endometrial cancer Status: Chronic (10) Factor V Leiden mutation Status: Chronic (11) Hypokalemia Status: Acute (12) Hypokalemia Status: Acute (13) Hypothyroidism Status: Chronic (14) Nausea vomiting and diarrhea Status: Acute (15) Nausea, vomiting and diarrhea Status: Acute (16) UTI (urinary tract infection) Status: Acute (17) Weakness Status: Acute Review of Systems Constitutional: + weakness Respiratory: No shortness of breath Cardiac: No chest pain Abdomen: + pain, + diarrhea, No nausea, No vomiting, No constipation, No GI bleeding Medications Current Inpatient Medications Medications (Trade) Dose Ordered Sig/Alek Route Start Time Stop Time Status Last Admin Dose Admin Ioversol (Optiray 320) 100 ml UD PRN IV 04/15/17 00:45 04/19/17 00:44 Acetaminophen (Tylenol Tab) 650 mg Q4H PRN PO 04/15/17 00:45 05/15/17 00:44 04/15/17 11:33 650 MG Insulin Aspart (novoLOG ASPART) SLIDING SCALE If C... ACHS SC 04/15/17 01:30 05/15/17 01:29 Glucose (Glucose 40% Gel) 15-30 GRAMS 15 GRAMS... UD PRN PO 04/15/17 00:45 05/15/17 00:44 Glucose (Glucose Chew Tab) 4-8 Tablets 4 Tabl... UD PRN PO 04/15/17 00:45 05/15/17 00:44 Dextrose (Dextrose 50% 50ML Syringe) 25-50ML OF 50% DW IV FOR... UD PRN IV 04/15/17 00:45 05/15/17 00:44 Glucagon (Glucagon Inj) 1 mg UD PRN SQ 04/15/17 00:45 05/15/17 00:44 Atorvastatin Calcium (Lipitor Tab) 40 mg HS PO 04/15/17 21:00 05/15/17 20:59 Gabapentin (Neurontin Cap) 300 mg TID PO 04/15/17 08:00 05/15/17 08:59 04/15/17 13:45 300 MG Acetaminophen/ Hydrocodone Bitart ([place] 5/325 Tab) 1 tab Q6H PRN PO 04/15/17 00:45 04/29/17 00:44 04/15/17 13:46 1 TAB Levothyroxine Sodium (Synthroid Tab) 75 mcg DAILYBB PO 04/15/17 06:30 05/15/17 06:29 04/15/17 05:35 75 MCG Metoprolol Succinate (Toprol Xl Tab) 50 mg QAM PO 04/15/17 08:00 05/15/17 08:59 04/15/17 07:40 50 MG Ranitidine HCl (zANTac TAB) 150 mg BID17 PO 04/15/17 09:00 05/15/17 08:59 04/15/17 16:17 150 MG Sertraline HCl (Zoloft Tab) 200 mg HS PO 04/15/17 21:00 05/15/17 20:59 Trazodone HCl (Desyrel Tab) 100 mg HS PRN PO 04/15/17 00:45 05/15/17 00:44 Prochlorperazine Edisylate 5 mg/ Syringe 5 ml @ 5 mls/min Q6H PRN IV 04/15/17 00:45 05/15/17 00:44 Morphine Sulfate (MoRPHine SULFATE INJ) 2 mg Q6H PRN IV 04/15/17 00:45 04/29/17 00:44 Miscellaneous (Iv Fluids Completed) 1 ea PRN PRN N/A 04/15/17 01:00 04/15/18 00:59 Lactated Ringer's 1,000 ml @ 60 mls/hr [id number] ONCE IV 04/15/17 02:00 04/15/17 18:39 2/28/18 01:58 60 MLS/HR Enoxaparin Sodium (Lovenox Inj) 60 mg BID SQ 04/15/17 08:00 05/15/17 07:59 04/15/17 09:51 60 MG Miscellaneous Information (Consult) 1 ea UD PRN N/A 04/15/17 08:00 05/15/17 07:59 Miconazole Nitrate (Desenex Powder) 1 appln PRN PRN EXT 04/15/17 08:00 05/15/17 07:59 Piperacillin Sod/ Tazobactam Sod 3.375 gm/Dextrose 115 ml @ 28.75 mls/ hr Q8H IV 04/15/17 12:00 04/25/17 11:59 04/15/17 12:44 28.75 MLS/HR Polyethylene Glycol/ Electrolytes (Golytely Soln) 16 dose TODAY@1600 PO 04/15/17 16:00 04/15/17 19:00 04/15/17 16:17 16 DOSE Sodium Biphosphate/ Sodium Phosphate (Fleet Enema) 132 ml TODAY@1900 ONCE TX 04/15/17 19:00 04/15/17 19:01 Objective Vital Signs Date Time Temp Pulse Resp B/P (MAP) Pulse Ox O2 Delivery O2 Flow Rate FiO2 04/15/17 16:00 Room Air 04/15/17 14:22 36.3 53 20 125/73 (90) 100 Room Air 04/15/17 08:00 Room Air 04/15/17 07:45 62 04/15/17 07:25 36.4 56 12 108/68 (81) 97 Room Air 04/15/17 04:38 36.9 66 18 118/68 100 Nasal Cannula 2.0 04/15/17 02:59 36.5 72 18 104/70 (81) 100 Nasal Cannula 1.0 04/15/17 01:07 74 20 124/65 100 04/15/17 00:03 62 20 94/54 100 Nasal Cannula 2.0 04/14/17 22:49 69 20 102/74 100 Nasal Cannula 2.0 04/14/17 21:32 100 Room Air 04/14/17 21:27 36.7 74 18 131/77 100 Nasal Cannula 2.0 04/14/17 21:27 73 Physical Exam General Appearance: no apparent distress Respiratory/Chest: lungs clear, normal breath sounds, no respiratory distress, no accessory muscle use Cardiovascular: regular rate, rhythm Abdomen: normal bowel sounds, non tender, soft Extremities: normal inspection, no pedal edema Neurologic/Psychiatric: + depressed affect Laboratory Results Last 24 Hours Test 04/14/17 21:39 04/14/17 22:05 04/14/17 22:10 04/14/17 22:25 White Blood Count 3.35 K/uL Red Blood Count 3.24 M/uL Hemoglobin 9.6 g/dL Hematocrit 31.2 % Mean Corpuscular Volume 96.3 fL Mean Corpuscular Hemoglobin 29.6 pg Mean Corpuscular Hemoglobin Concent 30.8 g/dl Platelet Count 129 K/uL Mean Platelet Volume 10.5 fL Neutrophils (%) (Auto) 65.0 % Lymphocytes (%) (Auto) 24.8 % Monocytes (%) (Auto) 6.9 % Eosinophils (%) (Auto) 3.0 % Basophils (%) (Auto) 0.3 % Neutrophils # (Auto) 2.18 K/uL Lymphocytes # (Auto) 0.83 K/uL Monocytes # (Auto) 0.23 K/uL Eosinophils # (Auto) 0.10 K/uL Basophils # (Auto) 0.01 K/uL RDW Standard Deviation 55.2 fL RDW Coefficient of Variation 15.6 % Immature Granulocyte % (Auto) 0.0 % Immature Granulocyte # (Auto) 0.00 K/uL Sodium Level 140 mmol/L Potassium Level mmol/L 3.3 mmol/L Chloride Level 108 mmol/L Carbon Dioxide Level 21 mmol/L Anion Gap 10.0 mmol/L Blood Urea Nitrogen 9 mg/dl Creatinine 0.65 mg/dl Est Creatinine Clear Calc Drug Dose 95.1 ml/min Estimated GFR () 112.6 Estimated GFR (Non- 97.2 BUN/Creatinine Ratio 13.8 Random Glucose 80 mg/dl Calcium Level 7.6 mg/dl Magnesium Level mg/dl 1.9 mg/dl Total Bilirubin 0.4 mg/dl Direct Bilirubin mg/dl < 0.1 mg/dl Aspartate Amino Transf (AST/SGOT) U/L 27 U/L Alanine Aminotransferase (ALT/SGPT) 13 U/L Alkaline Phosphatase 114 U/L Troponin I 0.015 ng/ml Pro-B-Type Natriuretic Peptide 3241 pg/ml Total Protein 5.4 gm/dl Albumin 1.9 gm/dl Lipase 45 U/L Thyroid Stimulating Hormone (TSH) 8.840 uIu/ml Urine Color YELLOW Urine Appearance CLEAR Urine pH 6.5 Urine Specific [place] 1.020 Urine Protein TRACE Urine Glucose (UA) NEG Urine Ketones 1+ Urine Occult Blood 3+ Urine Nitrite POS Urine Bilirubin NEG Urine Urobilinogen NEG Urine Leukocyte Esterase NEG Urine WBC (Auto) 1-5 /hpf Urine RBC (Auto) >30 /hpf Urine Hyaline Casts (Auto) 10-30 /lpf Urine Epithelial Cells (Auto) 10-20 /lpf Urine Bacteria (Auto) 2+ Prothrombin Time 11.4 SECONDS Prothromb Time International Ratio 1.1 Activated Partial Thromboplast Time 35.9 SECONDS Partial Thromboplastin Ratio 1.4 Venous Blood pH 7.46 Venous Blood Partial Pressure CO2 32 mmHg Venous Blood Partial Pressure O2 48 mmHg Venous Blood HCO3 22 mmol/L Venous Blood Oxygen Saturation 83.6 % Venous Blood Base Excess -1.0 mEq/L Lactic Acid Level 1.2 mmol/L Free Thyroxine 1.32 ng/dl Test 04/15/17 00:59 04/15/17 02:01 04/15/17 05:29 04/15/17 08:22 Ammonia 11.0 umol/L Total Triiodothyronine 0.70 ng/ml Heparin-PF4 Antibody Screen NEG Bedside Glucose 86 mg/dl 117 mg/dl White Blood Count 3.83 K/uL Red Blood Count 3.21 M/uL Hemoglobin 9.8 g/dL Hematocrit 31.5 % Mean Corpuscular Volume 98.1 fL Mean Corpuscular Hemoglobin 30.5 pg Mean Corpuscular Hemoglobin Concent 31.1 g/dl Platelet Count 93 K/uL Mean Platelet Volume 9.0 fL Neutrophils (%) (Auto) 71.6 % Lymphocytes (%) (Auto) 20.1 % Monocytes (%) (Auto) 5.7 % Eosinophils (%) (Auto) 2.1 % Basophils (%) (Auto) 0.5 % Neutrophils # (Auto) 2.74 K/uL Lymphocytes # (Auto) 0.77 K/uL Monocytes # (Auto) 0.22 K/uL Eosinophils # (Auto) 0.08 K/uL Basophils # (Auto) 0.02 K/uL RDW Standard Deviation 56.4 fL RDW Coefficient of Variation 15.7 % Immature Granulocyte % (Auto) 0.0 % Immature Granulocyte # (Auto) 0.00 K/uL Platelet Estimate DECREASED Sodium Level 140 mmol/L Potassium Level 3.8 mmol/L Chloride Level 109 mmol/L Carbon Dioxide Level 24 mmol/L Anion Gap 7.0 mmol/L Blood Urea Nitrogen 8 mg/dl Creatinine 0.66 mg/dl Est Creatinine Clear Calc Drug Dose 80.6 ml/min Estimated GFR () 112.1 Estimated GFR (Non- 96.7 BUN/Creatinine Ratio 12.8 Random Glucose 91 mg/dl Calcium Level 7.6 mg/dl Test 04/15/17 11:59 04/15/17 16:44 Bedside Glucose 97 mg/dl 99 mg/dl Assessment and Plan This is a 61 year old female with a PMH of uterine CA s/p chemotherapy (last dose in December 2016), Factor V Leiden mutation and recent RUE DVT, HTN, depression, DM2, hypothyroidism, iron deficiency anemia, gastric bypass status - recent admission to [facility] with hypotension, respiratory failure requiring ICU admission with intubation and mechanical ventilation - presents for nausea/ vomiting/diarrhea. Proctitis abdominal CT suggests rectal wall thickening there is a concern for neoplasm, vs. mets from uterine CA plan for colonoscopy on 04/[address] now will check labs in AM Metabolic Encephalopathy secondary to UTI Patient with some confusion, this seems to be a persistent issue intermittent confusion; currently answers questions but slowly and takes more than one attempt to answer at times confused UA is dirty again currently on Zosyn; concern for VRE organism urine culture pending Multifactorial Anemia Iron Deficiency, B12 Deficiency, Chronic Disease patient with long-standing anemia, likely from her cancer as well as bariatric surgery Hgb on admission 9.8 monitor H/H and transfuse PRN Hypothyroidism continue Synthroid 75mcg recheck TSH in 6 weeks as outpatient Uterine CA no longer receiving adjuvant chemotherapy due to mental status/diarrhea, etc. Brain MRI 03/30 - no acute process noted consulting hem/onc for further input; possible mets noted to rectum and liver Sinus Rhythm with Significant Artifact - stable Recent RUE DVT continue Lovenox 60mg BID FULL CODE as per patient, will need to discuss with daughter
[2017-04-15] MEDS ORDERED: NURSING VERBAL MED ORDER ONE (18:45)
[2017-04-15] MEDS: LACTATED RINGER'S 1000ML 1,000 ML IV SCH (18:45)
--- NOTE | 2017-04-15 19:24 | Medical Consult ---
Consultation Date of Consultation: Apr 15, 2017. Attending Physician: Evita Escalante DO History of Present Illness Hematology/Oncology consult: Evaluation and management of low blood counts in in known case of endometrial cancer. Date of consultation: 04/15/2017 HPI: 61-year-old female, Oncology history: -diagnosed a case of endometrial carcinoma, clear cell variant, localized disease involving the endometrium, no pelvic lymph node involvement -CA 125 level--> 95 -received 1st cycle of chemotherapy with paclitaxel and carboplatin on 2016. -her treatment was complicated by gram-negative bacteremia, pyelonephritis, hypotension which required a pressure support, ventilator support , earlier she did receive prophylactic Neulasta but still had significant neutropenia. In mid-March she was admitted at [facility] for encephalopathy, VRE UTI, she was then discharged to [facility] on Zyvox. Family member noticed some intermittent confusion status, visual hallucination, very pale color noted, poor oral intake noted for the last few weeks, she does complain of intermittent epigastric pain with food intake, some nausea present, no definite fever. Recently she was started on Levaquin for possible pneumonia. Now she is admitted Hospital for further evaluation management. I saw Willie site, and 2 daughters but also at bedside, cyst feeling much better, still complains of intermittent abdominal pain and so is afraid to eat, has diarrhea, no blood in the stool, she is on Lovenox 60 mg twice a day. No new bleeding from any sites. REVIEW OF SYSTEMS: GENERAL: No recent change in weight, feels weak and tired, possible low-grade fevers, no chills. SKIN: No skin rash, no bruising. HEAD: No new headache, no dizziness. EYES: No recent change in the vision, no diplopia, EARS: No earache no tinnitus, NOSE: No epistaxis, No nasal discharge or stuffiness, MOUTH: No sores, no dysphagia, no hoarseness of voice, NECK: No lumps, No swelling in thyroid area. No stiffness. PULMONARY: No cough, No shortness of breath, no hemoptysis, no chest pain, No wheezing. CARDIOVASCULAR: No anginal chest pain, no PND, no orthopnea. No palpitation, no leg edema. No syncope. GASTROINTESTINAL: Intermittent abdominal pain, nausea, slightly limiting present diarrhea present , No constipation. No blood in stool or black tarry stools. No abdominal distention. UROLOGIC: History of repeated GI present. MUSCULOSKELETAL: No joint pain, No joint swelling, no muscle weakness. HEMATOLOGIC: Mild anemia noted, no bleeding disorder, No bruising. Last blood transfusion was in January,. NEUROLOGIC: No seizures, no focal weakness, no speech difficulty, some memory disturbances present. No some tingling and numbness of the extremities noted, PSYCHIATRIC: No depression. Anxiety present. No psychosis. SLEEP: No sleep disorder. Past medical and surgical history: -History of gastric bypass surgery in 2006 at [facility]. -Persistent the abdominal wall wound with some slight discharge since the gastric bypass surgery. ~She says that she was seen in the wound clinic in [place], presently she is not on any antibiotic treatment. -Vitamin B12 deficiency, she is on Vitamin B12 replacement therapy (injection) every 3 monthly at [facility]. -DJD, she had bilateral knee joint replacement surgery and the left hip surgery x2, she is on Neurontin for the symptomatic treatment. -Hypothyroidism. -Factor V Leiden mutation was noted 1st time in 2013. ~She says that she had blood clot involving the left groin earlier when she underwent the gastric bypass surgery, she received oral Coumadin treatment for about 1 month at that time. ~Presently she is not on any anticoagulant treatment. - Osteoporosis, she is on Fosamax therapy. - She had 3 in the past. -She had open cholecystectomy. -Abdominal wall hernia repair 4 to 5 years back at [facility]. - Brain atrophy which is somewhat disproportionate to the her age noted in the brain MRI. Social history: Nonsmoker, denies any ETOH abuse. Family history: Not significant Medications: Please review her chart for detailed list of medications. - started on Zocin antibiotic. Allergies: None On exam: - Alert and oriented x3, well built woman, not in any distress. - HEENT: no icterus, no pallor, Throat: Normal. - Neck: No palpable cervical lymphadenopathy. - Chest: clear to auscultation. - Abdomen: soft, nontender, no hepatomegaly, no splenomegaly. - No focal neuro deficit. - Extremities: no finger clubbing, no leg edema. Lab: Recently when she was in the hospital in March,, her white blood cell count has remained on the lower side around 3-4, platelet count was in the range of 140,000 and stable hemoglobin around 9-10 g/dL Last blood pressure was received on 01/30/2007 (2 units). Blood workup done on 04/14/2017: -WBC 3300, H&H of 9.6/31, Platelet count of 129,000. -BUN/Creat: 9/0.6, calcium 7.6 -ALT 13, alkaline phosphatase 114, Total bilirubin: 0.4 - WBC 3800, H&H of 9.8/31.5, Platelet count of 93,000 (04/15/2017) -TSH--> 8.8 -serum copper level--> 65 which is slightly on the lower side. - heparin-induced thrombocytopenia antibody screening --> negative. 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 Persistent abnormal thickening of the rectum with slight interval decrease in the infiltration of the mesorectal fat and pre sacral space no pathological are lymph nodes noted. -brain MRI (03/30/2017--> mild brain atrophy noted, no focal lesions noted. ASSESSMENT AND PLAN: 61-year-old female, a case of endometrial carcinoma, localized disease, she was not a great candidate for initial surgery and so she received a neoadjuvant chemotherapy with 1st cycle (paclitaxel incontinence) in mid-December,, her treatment was completed with the infectious complications, required ventilator support, Gram-negative bacteremia, also had significant neutropenia, required growth factor support, has been having intermittent encephalopathy, recently she was treated with Zyvox for UTI. I reviewed her blood workup done recently, her platelet count has dropped slightly to around 90,000 thousand, about 2 weeks back it was around 140 ,000. HIT antibody negative. She has Vitamin B12 deficiency, she received was better Vitamin B12 on a regular basis, last dose received about a month back in the intermediate. She has mild leukopenia since mid-February, 2018, stable hemoglobin level between 9-10 g/dL. No splenomegaly noted in the recent CT scan of abdomen. Sees going for colonoscopic evaluation to lateral for evaluation of the rectal mucosa changes noted in the recent CT scan of the abdomen. Also has some nonspecific spots in the left lobe of the liver. Llow blood count mainly white blood cell count and platelet count could be because of Zyvox antibiotic. Presently she is not on it. Serum copper level is also slightly lower side which may be contributing to the low white blood cell count. I think her blood count is likely to improve in the next few days/weeks. Because of her other comorbid conditions, she is not a candidate for chemotherapy treatment for endometrial cancer at this time. Will continue to observe. Thanks for the consult. Dr. Roberto García Hem/Onc (This note was completed using the dictation program Fluency Direct. As such, there may be misspellings, word substitutions, or other variations that should not change the essence of the clinical content of this encounter note. If there is need for further clarification, please direct questions to the provider listed above.) Past Medical/Surgical History Medical Problems: (1) Altered mental status Status: Acute (2) Anemia Status: Chronic (3) B12 deficiency Status: Chronic (4) Benign hypertension Status: Chronic (5) Dehydration Status: Acute (6) Depression Status: Chronic (7) Diabetes mellitus type 2 Status: Chronic (8) Dyslipidemia Status: Chronic (9) Endometrial cancer Status: Chronic (10) Factor V Leiden mutation Status: Chronic (11) Hypokalemia Status: Acute (12) Hypokalemia Status: Acute (13) Hypothyroidism Status: Chronic (14) Nausea vomiting and diarrhea Status: Acute (15) Nausea, vomiting and diarrhea Status: Acute (16) UTI (urinary tract infection) Status: Acute (17) Weakness Status: Acute Family History Diabetes mellitus SISTER FH: CAD (coronary artery disease) MOTHER (LA) FH: cancer MOTHER (endometrial CA) SISTER (endometrial CA or ovarian CA) Social History Smoking Status: Never Smoker Drug Use: none Marital Status: Occupation Status: disabled Allergies Coded Allergies: No Known Allergies (Verified , 04/14/17) Current Inpatient Medications Current Inpatient Medications Medications (Trade) Dose Ordered Sig/Alek Route Start Time Stop Time Status Last Admin Dose Admin Ioversol (Optiray 320) 100 ml UD PRN IV 04/15/17 00:45 04/19/17 00:44 Acetaminophen (Tylenol Tab) 650 mg Q4H PRN PO 04/15/17 00:45 05/15/17 00:44 04/15/17 11:33 650 MG Insulin Aspart (novoLOG ASPART) SLIDING SCALE If C... ACHS SC 04/15/17 01:30 05/15/17 01:29 Glucose (Glucose 40% Gel) 15-30 GRAMS 15 GRAMS... UD PRN PO 04/15/17 00:45 05/15/17 00:44 Glucose (Glucose Chew Tab) 4-8 Tablets 4 Tabl... UD PRN PO 04/15/17 00:45 05/15/17 00:44 Dextrose (Dextrose 50% 50ML Syringe) 25-50ML OF 50% DW IV FOR... UD PRN IV 04/15/17 00:45 05/15/17 00:44 Glucagon (Glucagon Inj) 1 mg UD PRN SQ 04/15/17 00:45 05/15/17 00:44 Atorvastatin Calcium (Lipitor Tab) 40 mg HS PO 04/15/17 21:00 05/15/17 20:59 Gabapentin (Neurontin Cap) 300 mg TID PO 04/15/17 08:00 05/15/17 08:59 04/15/17 13:45 300 MG Acetaminophen/ Hydrocodone Bitart ([place] 5/325 Tab) 1 tab Q6H PRN PO 04/15/17 00:45 04/29/17 00:44 04/15/17 13:46 1 TAB Levothyroxine Sodium (Synthroid Tab) 75 mcg DAILYBB PO 04/15/17 06:30 05/15/17 06:29 04/15/17 05:35 75 MCG Metoprolol Succinate (Toprol Xl Tab) 50 mg QAM PO 04/15/17 08:00 05/15/17 08:59 04/15/17 07:40 50 MG Ranitidine HCl (zANTac TAB) 150 mg BID17 PO 04/15/17 09:00 05/15/17 08:59 04/15/17 16:17 150 MG Sertraline HCl (Zoloft Tab) 200 mg HS PO 04/15/17 21:00 05/15/17 20:59 Trazodone HCl (Desyrel Tab) 100 mg HS PRN PO 04/15/17 00:45 05/15/17 00:44 Prochlorperazine Edisylate 5 mg/ Syringe 5 ml @ 5 mls/min Q6H PRN IV 04/15/17 00:45 05/15/17 00:44 Morphine Sulfate (MoRPHine SULFATE INJ) 2 mg Q6H PRN IV 04/15/17 00:45 04/29/17 00:44 Miscellaneous (Iv Fluids Completed) 1 ea PRN PRN N/A 04/15/17 01:00 04/15/18 00:59 Enoxaparin Sodium (Lovenox Inj) 60 mg BID SQ 04/15/17 08:00 05/15/17 07:59 04/15/17 09:51 60 MG Miscellaneous Information (Consult) 1 ea UD PRN N/A 04/15/17 08:00 05/15/17 07:59 Miconazole Nitrate (Desenex Powder) 1 appln PRN PRN EXT 04/15/17 08:00 05/15/17 07:59 Piperacillin Sod/ Tazobactam Sod 3.375 gm/Dextrose 115 ml @ 28.75 mls/ hr Q8H IV 04/15/17 12:00 04/25/17 11:59 04/15/17 12:44 28.75 MLS/HR Lactated Ringer's 1,000 ml @ 60 mls/hr [id number] IV 04/15/17 18:40 05/15/17 18:39 04/15/17 18:45 60 MLS/HR Physical Exam Date Time Temp Pulse Resp B/P (MAP) Pulse Ox O2 Delivery O2 Flow Rate FiO2 04/15/17 16:00 Room Air 04/15/17 14:22 36.3 53 20 125/73 (90) 100 Room Air 04/15/17 08:00 Room Air 04/15/17 07:45 62 04/15/17 07:25 36.4 56 12 108/68 (81) 97 Room Air 04/15/17 04:38 36.9 66 18 118/68 100 Nasal Cannula 2.0 04/15/17 02:59 36.5 72 18 104/70 (81) 100 Nasal Cannula 1.0 04/15/17 01:07 74 20 124/65 100 04/15/17 00:03 62 20 94/54 100 Nasal Cannula 2.0 04/14/17 22:49 69 20 102/74 100 Nasal Cannula 2.0 04/14/17 21:32 100 Room Air 04/14/17 21:27 36.7 74 18 131/77 100 Nasal Cannula 2.0 04/14/17 21:27 73 Laboratory Results Last 24 Hours Test 04/14/17 21:39 04/14/17 22:05 04/14/17 22:10 04/14/17 22:25 White Blood Count 3.35 K/uL Red Blood Count 3.24 M/uL Hemoglobin 9.6 g/dL Hematocrit 31.2 % Mean Corpuscular Volume 96.3 fL Mean Corpuscular Hemoglobin 29.6 pg Mean Corpuscular Hemoglobin Concent 30.8 g/dl Platelet Count 129 K/uL Mean Platelet Volume 10.5 fL Neutrophils (%) (Auto) 65.0 % Lymphocytes (%) (Auto) 24.8 % Monocytes (%) (Auto) 6.9 % Eosinophils (%) (Auto) 3.0 % Basophils (%) (Auto) 0.3 % Neutrophils # (Auto) 2.18 K/uL Lymphocytes # (Auto) 0.83 K/uL Monocytes # (Auto) 0.23 K/uL Eosinophils # (Auto) 0.10 K/uL Basophils # (Auto) 0.01 K/uL RDW Standard Deviation 55.2 fL RDW Coefficient of Variation 15.6 % Immature Granulocyte % (Auto) 0.0 % Immature Granulocyte # (Auto) 0.00 K/uL Sodium Level 140 mmol/L Potassium Level mmol/L 3.3 mmol/L Chloride Level 108 mmol/L Carbon Dioxide Level 21 mmol/L Anion Gap 10.0 mmol/L Blood Urea Nitrogen 9 mg/dl Creatinine 0.65 mg/dl Est Creatinine Clear Calc Drug Dose 95.1 ml/min Estimated GFR () 112.6 Estimated GFR (Non- 97.2 BUN/Creatinine Ratio 13.8 Random Glucose 80 mg/dl Calcium Level 7.6 mg/dl Magnesium Level mg/dl 1.9 mg/dl Total Bilirubin 0.4 mg/dl Direct Bilirubin mg/dl < 0.1 mg/dl Aspartate Amino Transf (AST/SGOT) U/L 27 U/L Alanine Aminotransferase (ALT/SGPT) 13 U/L Alkaline Phosphatase 114 U/L Troponin I 0.015 ng/ml Pro-B-Type Natriuretic Peptide 3241 pg/ml Total Protein 5.4 gm/dl Albumin 1.9 gm/dl Lipase 45 U/L Thyroid Stimulating Hormone (TSH) 8.840 uIu/ml Urine Color YELLOW Urine Appearance CLEAR Urine pH 6.5 Urine Specific Wilmot 1.020 Urine Protein TRACE Urine Glucose (UA) NEG Urine Ketones 1+ Urine Occult Blood 3+ Urine Nitrite POS Urine Bilirubin NEG Urine Urobilinogen NEG Urine Leukocyte Esterase NEG Urine WBC (Auto) 1-5 /hpf Urine RBC (Auto) >30 /hpf Urine Hyaline Casts (Auto) 10-30 /lpf Urine Epithelial Cells (Auto) 10-20 /lpf Urine Bacteria (Auto) 2+ Prothrombin Time 11.4 SECONDS Prothromb Time International Ratio 1.1 Activated Partial Thromboplast Time 35.9 SECONDS Partial Thromboplastin Ratio 1.4 Venous Blood pH 7.46 Venous Blood Partial Pressure CO2 32 mmHg Venous Blood Partial Pressure O2 48 mmHg Venous Blood HCO3 22 mmol/L Venous Blood Oxygen Saturation 83.6 % Venous Blood Base Excess -1.0 mEq/L Lactic Acid Level 1.2 mmol/L Free Thyroxine 1.32 ng/dl Test 04/15/17 00:59 04/15/17 02:01 04/15/17 05:29 04/15/17 08:22 Ammonia 11.0 umol/L Total Triiodothyronine 0.70 ng/ml Heparin-PF4 Antibody Screen NEG Bedside Glucose 86 mg/dl 117 mg/dl White Blood Count 3.83 K/uL Red Blood Count 3.21 M/uL Hemoglobin 9.8 g/dL Hematocrit 31.5 % Mean Corpuscular Volume 98.1 fL Mean Corpuscular Hemoglobin 30.5 pg Mean Corpuscular Hemoglobin Concent 31.1 g/dl Platelet Count 93 K/uL Mean Platelet Volume 9.0 fL Neutrophils (%) (Auto) 71.6 % Lymphocytes (%) (Auto) 20.1 % Monocytes (%) (Auto) 5.7 % Eosinophils (%) (Auto) 2.1 % Basophils (%) (Auto) 0.5 % Neutrophils # (Auto) 2.74 K/uL Lymphocytes # (Auto) 0.77 K/uL Monocytes # (Auto) 0.22 K/uL Eosinophils # (Auto) 0.08 K/uL Basophils # (Auto) 0.02 K/uL RDW Standard Deviation 56.4 fL RDW Coefficient of Variation 15.7 % Immature Granulocyte % (Auto) 0.0 % Immature Granulocyte # (Auto) 0.00 K/uL Platelet Estimate DECREASED Sodium Level 140 mmol/L Potassium Level 3.8 mmol/L Chloride Level 109 mmol/L Carbon Dioxide Level 24 mmol/L Anion Gap 7.0 mmol/L Blood Urea Nitrogen 8 mg/dl Creatinine 0.66 mg/dl Est Creatinine Clear Calc Drug Dose 80.6 ml/min Estimated GFR () 112.1 Estimated GFR (Non- 96.7 BUN/Creatinine Ratio 12.8 Random Glucose 91 mg/dl Calcium Level 7.6 mg/dl Test 04/15/17 11:59 04/15/17 16:44 Bedside Glucose 97 mg/dl 99 mg/dl
[2017-04-15 19:41] VITALS: BP 113/71; PULSE 53; TEMP 36.4; O2SAT 98
[2017-04-15] MEDS: SERTRALINE HCL 100 MG TAB PO SCH (20:18)
[2017-04-15] MEDS: ATORVASTATIN 40 MG TAB PO SCH (20:18)
[2017-04-16 00:08] VITALS: BP 97/61; PULSE 67; TEMP 36.9; O2SAT 97
[2017-04-16] MEDS: PIPERACILL/TAZOBAC IV 3.375 GM in DEXTROSE 5% 100ML IV SCH (03:26)
[2017-04-16 04:00] VITALS: BP 98/63; PULSE 62; TEMP 37; O2SAT 96
[2017-04-16 07:06] LABS: HEMATOCRIT 28.2 % (37-47); HEMOGLOBIN 8.9 g/dL (12.0-16.0); MEAN CELL VOLUME 97.6 fL (80-100); MEAN CORPUSCULAR HEMOGLOBIN 30.8 pg (25-34); MEAN CORPUSCULAR HGB CONC 31.6 g/dl (32-36); RED CELL DISTRIBUTION WIDTH CV 15.8 % (11.5-14.5); WHITE BLOOD COUNT 3.47 K/uL (4.8-10.8)
[2017-04-16 07:10] LABS: MEAN PLATELET VOLUME 9.1 fL (7.4-10.4); PLATELET COUNT 75 K/uL (130-400)
[2017-04-16 07:36] LABS: CALCIUM 7.6 mg/dl (8.5-10.1); CREATININE 0.54 mg/dl (0.60-1.20); POTASSIUM 3.5 mmol/L (3.5-5.1)
[2017-04-16] MEDS: INSULIN ASPART 100 UNITS/ML 3 ML PEN SC SCH ×4 (08:28→20:46)
[2017-04-16 08:33] VITALS: BP 115/76; PULSE 63; TEMP 36.3; O2SAT 94
[2017-04-16] MEDS: ENOXAPARIN 60 MG/0.6 ML SYR SQ SCH ×2 (08:42→20:19)
[2017-04-16] MEDS: GABAPENTIN 300 MG CAP PO SCH ×3 (08:43→20:18)
[2017-04-16] MEDS: RANITIDINE HCL 150 MG TAB PO SCH ×2 (08:45→17:39)
[2017-04-16] MEDS: METOPROLOL SUCC 50MG EXT REL TAB PO SCH (09:11)
--- NOTE | 2017-04-16 10:17 | Gastroenterology Progress Note ---
Progress Note Date of Service: Apr 16, 2017 Subjective Pt evaluation today including: conversation w/ patient, physical exam, chart review, lab review PT was seen and evaluated, chart reviewed. no acute events overnight. was to have a colonoscopy today, she did not take the prep. Drank less than half of PO prep, w/ one enema but is having formed stools. Denies any abdominal pain, nausea, vomiting. I asked her if she wants the colonoscopy. She says she does. No fever, chills, CP, SOB CT ABD/Pelvis 04/14/17: Persistent abnormal rectal wall thickening despite slight interval decrease in surrounding inflammatory change. This is most suspicious for neoplasm, although an infectious etiology is possible. Direct visualization is recommended. No lymphadenopathy. Slight interval increase in conspicuity of irregular lesions within the left hepatic lobe. Given the presence of rectal wall thickening, these lesions raise concern for metastatic disease. These are incompletely characterized on the single phase examination. Postsurgical changes of Andre-en-Y gastric bypass without evidence of complication. Hepatic steatosis. CT ABD/Pelvis 03/31/17: Extensive wall thickening of the lower rectum and anus with surrounding inflammatory change. This is most concerning for proctitis, likely infectious.However, this should be followed to resolution with consideration for follow-updirect visualization to exclude underlying neoplasm. No lymphadenopathy. Chronic region of scarring in the right anterior abdominal wall with focal fluid. This may represent a chronic sinus tract. No clear intraperitonealextension to suggest fistula. Postsurgical changes of retrocolic Andre-en-Y gastric bypass. No bowel obstruction. Hepatic steatosis suggested. Colonoscopy 07/01: Preparation of the colon was poor.One 4 mm polyp in the cecum. Resected and retrieved. One 7 mm polyp in the transverse colon. Resected and retrieved. Stool from splenic flexure to cecum.The distal rectum and anal verge are normal onretroflexion view. Review of Systems Constitutional: + weakness, + fatigue, No fever, No chills Respiratory: No cough, No sputum, No shortness of breath, No dyspnea on exertion Cardiac: No chest pain, No orthopnea, No edema, No palpitations Abdomen: No pain, No nausea, No vomiting, No diarrhea, No constipation, No GI bleeding, No dysphagia, No odynophagia Endo: + fatigue, No excessive thirst, No excessive urination Skin: No rash, No itch, No color change, No bleeding Medications Current Inpatient Medications Medications (Trade) Dose Ordered Sig/Alek Route Start Time Stop Time Status Last Admin Dose Admin Ioversol (Optiray 320) 100 ml UD PRN IV 04/15/17 00:45 04/19/17 00:44 Acetaminophen (Tylenol Tab) 650 mg Q4H PRN PO 04/15/17 00:45 05/15/17 00:44 04/15/17 11:33 650 MG Insulin Aspart (novoLOG ASPART) SLIDING SCALE If C... ACHS SC 04/15/17 01:30 05/15/17 01:29 Glucose (Glucose 40% Gel) 15-30 GRAMS 15 GRAMS... UD PRN PO 04/15/17 00:45 05/15/17 00:44 Glucose (Glucose Chew Tab) 4-8 Tablets 4 Tabl... UD PRN PO 04/15/17 00:45 05/15/17 00:44 Dextrose (Dextrose 50% 50ML Syringe) 25-50ML OF 50% DW IV FOR... UD PRN IV 04/15/17 00:45 05/15/17 00:44 Glucagon (Glucagon Inj) 1 mg UD PRN SQ 04/15/17 00:45 05/15/17 00:44 Atorvastatin Calcium (Lipitor Tab) 40 mg HS PO 04/15/17 21:00 05/15/17 20:59 04/15/17 20:18 40 MG Gabapentin (Neurontin Cap) 300 mg TID PO 04/15/17 08:00 05/15/17 08:59 04/15/17 20:18 300 MG Acetaminophen/ Hydrocodone Bitart ([place] 5/325 Tab) 1 tab Q6H PRN PO 04/15/17 00:45 04/29/17 00:44 04/15/17 20:17 1 TAB Levothyroxine Sodium (Synthroid Tab) 75 mcg DAILYBB PO 04/15/17 06:30 05/15/17 06:29 04/15/17 05:35 75 MCG Metoprolol Succinate (Toprol Xl Tab) 50 mg QAM PO 04/15/17 08:00 05/15/17 08:59 04/16/17 09:11 50 MG Ranitidine HCl (zANTac TAB) 150 mg BID17 PO 04/15/17 09:00 05/15/17 08:59 04/15/17 16:17 150 MG Sertraline HCl (Zoloft Tab) 200 mg HS PO 04/15/17 21:00 05/15/17 20:59 04/15/17 20:18 200 MG Trazodone HCl (Desyrel Tab) 100 mg HS PRN PO 04/15/17 00:45 05/15/17 00:44 Prochlorperazine Edisylate 5 mg/ Syringe 5 ml @ 5 mls/min Q6H PRN IV 04/15/17 00:45 05/15/17 00:44 Morphine Sulfate (MoRPHine SULFATE INJ) 2 mg Q6H PRN IV 04/15/17 00:45 04/29/17 00:44 04/16/17 03:22 2 MG Miscellaneous (Iv Fluids Completed) 1 ea PRN PRN N/A 04/15/17 01:00 04/15/18 00:59 Enoxaparin Sodium (Lovenox Inj) 60 mg BID SQ 04/15/17 08:00 05/15/17 07:59 04/15/17 20:19 60 MG Miscellaneous Information (Consult) 1 ea UD PRN N/A 04/15/17 08:00 05/15/17 07:59 Miconazole Nitrate (Desenex Powder) 1 appln PRN PRN EXT 04/15/17 08:00 05/15/17 07:59 Piperacillin Sod/ Tazobactam Sod 3.375 gm/Dextrose 115 ml @ 28.75 mls/ hr Q8H IV 04/15/17 12:00 04/25/17 11:59 04/16/17 03:26 28.75 MLS/HR Lactated Ringer's 1,000 ml @ 60 mls/hr [id number] IV 04/15/17 18:40 05/15/17 18:39 04/15/17 18:45 60 MLS/HR Objective Vital Signs Date Time Temp Pulse Resp B/P (MAP) Pulse Ox O2 Delivery O2 Flow Rate FiO2 04/16/17 08:45 Room Air 04/16/17 08:33 36.3 63 18 115/76 (89) 94 Room Air 04/16/17 07:50 Room Air 04/16/17 04:00 37.0 62 18 98/63 (75) 96 Room Air 04/16/17 00:08 36.9 67 20 97/61 (73) 97 Room Air 04/16/17 00:00 Room Air 04/15/17 20:00 Room Air 04/15/17 19:41 36.4 53 18 113/71 (85) 98 Room Air 04/15/17 16:00 Room Air 04/15/17 14:22 36.3 53 20 125/73 (90) 100 Room Air Physical Exam General Appearance: no apparent distress, + pertinent finding (chronically ill appearing) Eyes: PERRL ENT: hearing grossly normal Neck: no adenopathy, thyroid normal, trachea midline Respiratory/Chest: lungs clear, normal breath sounds, no respiratory distress, no accessory muscle use Cardiovascular: regular rate, rhythm, no edema, no gallop, no JVD Abdomen: normal bowel sounds, non tender, soft, no organomegaly, no pulsatile mass Neurologic/Psych: alert, normal mood/affect, oriented x 3 Skin: normal color, no jaundice, warm/dry, no rash Laboratory Results Last 24 Hours Test 04/15/17 11:59 04/15/17 16:44 04/15/17 20:40 04/16/17 06:23 Bedside Glucose 97 mg/dl 99 mg/dl 82 mg/dl White Blood Count 3.47 K/uL Red Blood Count 2.89 M/uL Hemoglobin 8.9 g/dL Hematocrit 28.2 % Mean Corpuscular Volume 97.6 fL Mean Corpuscular Hemoglobin 30.8 pg Mean Corpuscular Hemoglobin Concent 31.6 g/dl RDW Standard Deviation 56.0 fL RDW Coefficient of Variation 15.8 % Platelet Count 75 K/uL Mean Platelet Volume 9.1 fL Prothrombin Time 10.7 SECONDS Prothromb Time International Ratio 1.0 Sodium Level 140 mmol/L Potassium Level 3.5 mmol/L Chloride Level 108 mmol/L Carbon Dioxide Level 23 mmol/L Anion Gap 9.0 mmol/L Blood Urea Nitrogen 6 mg/dl Creatinine 0.54 mg/dl Est Creatinine Clear Calc Drug Dose 97.9 ml/min Estimated GFR () 119.7 Estimated GFR (Non- 103.3 BUN/Creatinine Ratio 10.4 Random Glucose 80 mg/dl Calcium Level 7.6 mg/dl Magnesium Level 1.8 mg/dl Test 04/16/17 07:31 Bedside Glucose 93 mg/dl Assessment and Plan 61 year old female admitted for diarrhea, there was a plan for an OP colonoscopy. Pt was re-admitted w/ similar symptoms, CT imaging w/ persistent rectal wall thickening and now w/ a concern for a liver lesion. She will need colonoscopy w/ visualization of rectal wall thickening She did not take her colonoscopy prep. She can have clears today and trial colonoscopy prep again. If she refuses the prep, we will need to cancel the colonoscopy. - Clear liquid diet today - Prep w/ miralax and gatorade - Can start now - Will need Fleets today at 1400 and again at 1900 - NPO after midnight - Colonoscopy tomorrow - Will need PT/INR and plt in the morning Please call with any acute changes, questions or concerns Call from nursing with update, pt has made the decision to not pursue endoscopic evaluation of CT abnormality of rectal wall thickening. Will cancel the colonoscopy, dulcolax, miralax prep. GI to sign off as pt is no longer interested in any endoscopic evaluation. Please reconsult if needed. ATTESTATION: I have performed a history and physical examination of this patient and reviewed the electronic record. Specifically, on history patient is reluctant to have colonoscopy prep, and is now refusing sigmoidoscopy. I have discussed the case with KEYON Wooten. The above note reflects my findings, conclusions, and recommendations. Cesar Winkler MD
[2017-04-16] MEDS: LEVOTHYROXINE 75 MCG TAB PO SCH (10:54)
[2017-04-16] MEDS: HYDROCODONE/ACETAMIN 5/325MG TAB PO PRN ×2 (10:55→20:18)
[2017-04-16] MEDS: LACTATED RINGER'S 1000ML 1,000 ML IV SCH (10:59)
[2017-04-16] MEDS ORDERED: POLYETHYLENE (MIRALAX) 17 GM PACK PO ONE ×2 (11:00→17:00)
--- NOTE | 2017-04-16 11:51 | Progress Note ---
Subjective Date of Service: Apr 16, 2017. Subjective Pt evaluation today including: conversation w/ patient, physical exam, lab review, review of studies, review of inpatient medication list Saw/examined the patient in room 418 She is refusing colonoscopy at this time unsure of what her goals of treatment are, but she wants to go back to [facility] She states she feels slightly better, but appears anxious Problem List Medical Problems: (1) Altered mental status Status: Acute (2) Anemia Status: Chronic (3) B12 deficiency Status: Chronic (4) Benign hypertension Status: Chronic (5) Dehydration Status: Acute (6) Depression Status: Chronic (7) Diabetes mellitus type 2 Status: Chronic (8) Dyslipidemia Status: Chronic (9) Endometrial cancer Status: Chronic (10) Factor V Leiden mutation Status: Chronic (11) Hypokalemia Status: Acute (12) Hypokalemia Status: Acute (13) Hypothyroidism Status: Chronic (14) Nausea vomiting and diarrhea Status: Acute (15) Nausea, vomiting and diarrhea Status: Acute (16) UTI (urinary tract infection) Status: Acute (17) Weakness Status: Acute Review of Systems Respiratory: No shortness of breath Cardiac: No chest pain Abdomen: + diarrhea, No pain, No nausea, No vomiting Medications Current Inpatient Medications Medications (Trade) Dose Ordered Sig/Alek Route Start Time Stop Time Status Last Admin Dose Admin Ioversol (Optiray 320) 100 ml UD PRN IV 04/15/17 00:45 04/19/17 00:44 Acetaminophen (Tylenol Tab) 650 mg Q4H PRN PO 04/15/17 00:45 05/15/17 00:44 04/15/17 11:33 650 MG Insulin Aspart (novoLOG ASPART) SLIDING SCALE If C... ACHS SC 04/15/17 01:30 05/15/17 01:29 Glucose (Glucose 40% Gel) 15-30 GRAMS 15 GRAMS... UD PRN PO 04/15/17 00:45 05/15/17 00:44 Glucose (Glucose Chew Tab) 4-8 Tablets 4 Tabl... UD PRN PO 04/15/17 00:45 05/15/17 00:44 Dextrose (Dextrose 50% 50ML Syringe) 25-50ML OF 50% DW IV FOR... UD PRN IV 04/15/17 00:45 05/15/17 00:44 Glucagon (Glucagon Inj) 1 mg UD PRN SQ 04/15/17 00:45 05/15/17 00:44 Atorvastatin Calcium (Lipitor Tab) 40 mg HS PO 04/15/17 21:00 05/15/17 20:59 04/15/17 20:18 40 MG Gabapentin (Neurontin Cap) 300 mg TID PO 04/15/17 08:00 05/15/17 08:59 04/15/17 20:18 300 MG Acetaminophen/ Hydrocodone Bitart ([place] 5/325 Tab) 1 tab Q6H PRN PO 04/15/17 00:45 04/29/17 00:44 04/16/17 10:55 1 TAB Levothyroxine Sodium (Synthroid Tab) 75 mcg DAILYBB PO 04/15/17 06:30 05/15/17 06:29 04/16/17 10:54 75 MCG Metoprolol Succinate (Toprol Xl Tab) 50 mg QAM PO 04/15/17 08:00 05/15/17 08:59 04/16/17 09:11 50 MG Ranitidine HCl (zANTac TAB) 150 mg BID17 PO 04/15/17 09:00 05/15/17 08:59 04/15/17 16:17 150 MG Sertraline HCl (Zoloft Tab) 200 mg HS PO 04/15/17 21:00 05/15/17 20:59 04/15/17 20:18 200 MG Trazodone HCl (Desyrel Tab) 100 mg HS PRN PO 04/15/17 00:45 05/15/17 00:44 Prochlorperazine Edisylate 5 mg/ Syringe 5 ml @ 5 mls/min Q6H PRN IV 04/15/17 00:45 05/15/17 00:44 Morphine Sulfate (MoRPHine SULFATE INJ) 2 mg Q6H PRN IV 04/15/17 00:45 04/29/17 00:44 04/16/17 03:22 2 MG Miscellaneous (Iv Fluids Completed) 1 ea PRN PRN N/A 04/15/17 01:00 04/15/18 00:59 Enoxaparin Sodium (Lovenox Inj) 60 mg BID SQ 04/15/17 08:00 05/15/17 07:59 04/15/17 20:19 60 MG Miscellaneous Information (Consult) 1 ea UD PRN N/A 04/15/17 08:00 05/15/17 07:59 Miconazole Nitrate (Desenex Powder) 1 appln PRN PRN EXT 04/15/17 08:00 05/15/17 07:59 Piperacillin Sod/ Tazobactam Sod 3.375 gm/Dextrose 115 ml @ 28.75 mls/ hr Q8H IV 04/15/17 12:00 04/25/17 11:59 04/16/17 03:26 28.75 MLS/HR Lactated Ringer's 1,000 ml @ 60 mls/hr [id number] IV 04/15/17 18:40 05/15/17 18:39 04/16/17 10:59 60 MLS/HR Bisacodyl (Dulcolax Tab) 20 mg ONE ONCE PO 04/16/17 13:00 04/16/17 13:01 Polyethylene (Miralax Powder Packet) 119 gm ONE ONCE PO 04/16/17 17:00 04/16/17 17:01 Objective Vital Signs Date Time Temp Pulse Resp B/P (MAP) Pulse Ox O2 Delivery O2 Flow Rate FiO2 04/16/17 08:45 Room Air 04/16/17 08:33 36.3 63 18 115/76 (89) 94 Room Air 04/16/17 07:50 Room Air 04/16/17 04:00 37.0 62 18 98/63 (75) 96 Room Air 04/16/17 00:08 36.9 67 20 97/61 (73) 97 Room Air 04/16/17 00:00 Room Air 04/15/17 20:00 Room Air 04/15/17 19:41 36.4 53 18 113/71 (85) 98 Room Air 04/15/17 16:00 Room Air 04/15/17 14:22 36.3 53 20 125/73 (90) 100 Room Air Physical Exam General Appearance: no apparent distress Respiratory/Chest: no respiratory distress, no accessory muscle use Cardiovascular: regular rate, rhythm, no edema, no murmur Neurologic/Psychiatric: + depressed affect Laboratory Results Last 24 Hours Test 04/15/17 11:59 04/15/17 16:44 04/15/17 20:40 04/16/17 06:23 Bedside Glucose 97 mg/dl 99 mg/dl 82 mg/dl White Blood Count 3.47 K/uL Red Blood Count 2.89 M/uL Hemoglobin 8.9 g/dL Hematocrit 28.2 % Mean Corpuscular Volume 97.6 fL Mean Corpuscular Hemoglobin 30.8 pg Mean Corpuscular Hemoglobin Concent 31.6 g/dl RDW Standard Deviation 56.0 fL RDW Coefficient of Variation 15.8 % Platelet Count 75 K/uL Mean Platelet Volume 9.1 fL Prothrombin Time 10.7 SECONDS Prothromb Time International Ratio 1.0 Sodium Level 140 mmol/L Potassium Level 3.5 mmol/L Chloride Level 108 mmol/L Carbon Dioxide Level 23 mmol/L Anion Gap 9.0 mmol/L Blood Urea Nitrogen 6 mg/dl Creatinine 0.54 mg/dl Est Creatinine Clear Calc Drug Dose 97.9 ml/min Estimated GFR () 119.7 Estimated GFR (Non- 103.3 BUN/Creatinine Ratio 10.4 Random Glucose 80 mg/dl Calcium Level 7.6 mg/dl Magnesium Level 1.8 mg/dl Test 04/16/17 07:31 Bedside Glucose 93 mg/dl Assessment and Plan This is a 61 year old female with a PMH of uterine CA s/p chemotherapy (last dose in December 2016), Factor V Leiden mutation and recent RUE DVT, HTN, depression, DM2, hypothyroidism, iron deficiency anemia, gastric bypass status - recent admission to [facility] with hypotension, respiratory failure requiring ICU admission with intubation and mechanical ventilation - presents for nausea/ vomiting/diarrhea. Proctitis 04/16 appreciate GI input patient refusing colonoscopy at this time will consider palliative care consultation advance diet 04/[address] suggests rectal wall thickening there is a concern for neoplasm, vs. mets from uterine CA plan for colonoscopy on 04/[address] now will check labs in AM Metabolic Encephalopathy secondary to UTI 04/16 urine culture is negative will stop Zosyn 04/15 Patient with some confusion, this seems to be a persistent issue intermittent confusion; currently answers questions but slowly and takes more than one attempt to answer at times confused UA is dirty again currently on Zosyn; concern for VRE organism urine culture pending Multifactorial Anemia Iron Deficiency, B12 Deficiency, Chronic Disease patient with long-standing anemia, likely from her cancer as well as bariatric surgery Hgb on admission 9.8 monitor H/H and transfuse PRN Thrombocytopenia appreciate Hem/Onc input will monitor Hypothyroidism continue Synthroid 75mcg recheck TSH in 6 weeks as outpatient Uterine CA no longer receiving adjuvant chemotherapy due to mental status/diarrhea, etc. Brain MRI 03/30 - no acute process noted consulting hem/onc for further input; possible mets noted to rectum and liver Sinus Rhythm with Significant Artifact - stable Recent RUE DVT continue Lovenox 60mg BID FULL CODE as per patient, will need to discuss with daughter
[2017-04-16 12:02] VITALS: BP 119/80; PULSE 63; TEMP 36.9; O2SAT 98
[2017-04-16] MEDS ORDERED: BISACODYL 5 MG TABEC PO ONE (13:00)
[2017-04-16 14:56] VITALS: BP 100/67; PULSE 69; TEMP 36.9; O2SAT 99
--- NOTE | 2017-04-16 18:20 | Hematology/Oncology Prog Note ---
Hematology/Onc Progress Note Date of Service Apr 16, 2017. Subjective I saw her at bedside in the evening, she is sitting comfortably, having her dinner, she says that she declined for colonoscopic evaluation at this time, feeling much better, appetite has improved, she comes mild abdominal discomfort but she says that she is feeling better, no increasing diarrhea at this time, no bleeding from any sites. No new increasing cardiac or pulmonary symptoms. Hemodynamically she has remained stable, pulse ox on room air is around 99%. I reviewed her blood workup done today, WBC count is around 3400, hemoglobin slightly dropped to around 8.9 g/dL, platelet count further dropped down to 75, 000, no new bleeding from any sites. Her pancytopenia appears to be related to recent the antibiotic treatment in the form of Zyvox. I am expecting improvement of the blood count in the next few days. Presently she is not on active treatment for the uterine cancer, last cycle of chemotherapy was received in mid-December,. She is not a candidate for any kind of chemotherapy treatment at this time. Will follow up. Dr. Roberto García Hem/Onc Vital Signs Vital Signs Past 12 Hours Date Time Temp Pulse Resp B/P (MAP) Pulse Ox O2 Delivery O2 Flow Rate FiO2 04/16/17 15:37 Room Air 04/16/17 14:56 36.9 69 18 100/67 (78) 99 Room Air 04/16/17 12:02 36.9 63 18 119/80 (93) 98 Room Air 04/16/17 08:45 Room Air 04/16/17 08:33 36.3 63 18 115/76 (89) 94 Room Air 04/16/17 07:50 Room Air
[2017-04-16 20:11] VITALS: BP 109/70; PULSE 62; TEMP 36.9; O2SAT 96
[2017-04-16] MEDS: ATORVASTATIN 40 MG TAB PO SCH (20:19)
[2017-04-16] MEDS: SERTRALINE HCL 100 MG TAB PO SCH (20:19)
[2017-04-17 00:55] VITALS: BP 144/76; PULSE 82; TEMP 37.4; O2SAT 97
[2017-04-17] MEDS: HYDROCODONE/ACETAMIN 5/325MG TAB PO PRN ×2 (02:23→12:00)
[2017-04-17] MEDS: LACTATED RINGER'S 1000ML 1,000 ML IV SCH (02:26)
[2017-04-17 04:26] VITALS: BP 130/83; PULSE 78; TEMP 37; O2SAT 97
[2017-04-17] MEDS: LEVOTHYROXINE 75 MCG TAB PO SCH (06:01)
[2017-04-17 08:12] VITALS: BP 121/77; PULSE 75; TEMP 37.2; O2SAT 97
[2017-04-17 08:23] LABS: HEMATOCRIT 28.6 % (37-47); HEMOGLOBIN 8.8 g/dL (12.0-16.0); MEAN CORPUSCULAR HEMOGLOBIN 29.5 pg (25-34); MEAN CORPUSCULAR HGB CONC 30.8 g/dl (32-36); RED CELL DISTRIBUTION WIDTH CV 15.7 % (11.5-14.5); RED CELL DISTRIBUTION WIDTH SD 55.5 fL (36.4-46.3); WHITE BLOOD COUNT 5.41 K/uL (4.8-10.8)
[2017-04-17 08:46] LABS: MEAN PLATELET VOLUME 8.9 fL (7.4-10.4); PLATELET COUNT 67 K/uL (130-400)
[2017-04-17 08:47] LABS: CALCIUM 7.4 mg/dl (8.5-10.1); CREATININE 0.4 mg/dl (0.60-1.20); POTASSIUM 3.3 mmol/L (3.5-5.1)
[2017-04-17] MEDS: ENOXAPARIN 60 MG/0.6 ML SYR SQ SCH (09:23)
[2017-04-17] MEDS: METOPROLOL SUCC 50MG EXT REL TAB PO SCH (09:23)
[2017-04-17] MEDS: GABAPENTIN 300 MG CAP PO SCH ×2 (09:23→13:59)
[2017-04-17] MEDS: RANITIDINE HCL 150 MG TAB PO SCH (09:23)
[2017-04-17] MEDS: INSULIN ASPART 100 UNITS/ML 3 ML PEN SC SCH ×2 (09:24→12:24)
[2017-04-17 10:15] VITALS: O2SAT 97
[2017-04-17] MEDS ORDERED: POTASSIUM CHLORIDE 20 MEQ TABCR PO STA (11:17)
--- NOTE | 2017-04-17 13:47 | Progress Note ---
Subjective Date of Service: Apr 17, 2017. Subjective Pt evaluation today including: conversation w/ patient, physical exam, lab review, review of studies, review of inpatient medication list Saw/examined the patient in room 418 She's doing well, states she wants to go back to [facility] spoke with the patient's daughters, Aby and Nedra, and they tell me that she is DNR and they would like to fill out a POLST stating as such They tell me they would like to treat her symptomatically only. She is tolerating her PO diet Denies nausea/vomiting/diarrhea Problem List Medical Problems: (1) Altered mental status Status: Acute (2) Anemia Status: Chronic (3) B12 deficiency Status: Chronic (4) Benign hypertension Status: Chronic (5) Dehydration Status: Acute (6) Depression Status: Chronic (7) Diabetes mellitus type 2 Status: Chronic (8) Dyslipidemia Status: Chronic (9) Endometrial cancer Status: Chronic (10) Factor V Leiden mutation Status: Chronic (11) Hypokalemia Status: Acute (12) Hypokalemia Status: Acute (13) Hypothyroidism Status: Chronic (14) Nausea vomiting and diarrhea Status: Acute (15) Nausea, vomiting and diarrhea Status: Acute (16) UTI (urinary tract infection) Status: Acute (17) Weakness Status: Acute Review of Systems Constitutional: + weakness, No fever, No chills Abdomen: No pain, No nausea, No vomiting, No diarrhea (resolved) Medications Current Inpatient Medications Medications (Trade) Dose Ordered Sig/Alek Route Start Time Stop Time Status Last Admin Dose Admin Ioversol (Optiray 320) 100 ml UD PRN IV 04/15/17 00:45 04/19/17 00:44 Acetaminophen (Tylenol Tab) 650 mg Q4H PRN PO 04/15/17 00:45 05/15/17 00:44 04/15/17 11:33 650 MG Insulin Aspart (novoLOG ASPART) SLIDING SCALE If C... ACHS SC 04/15/17 01:30 05/15/17 01:29 Glucose (Glucose 40% Gel) 15-30 GRAMS 15 GRAMS... UD PRN PO 04/15/17 00:45 05/15/17 00:44 Glucose (Glucose Chew Tab) 4-8 Tablets 4 Tabl... UD PRN PO 04/15/17 00:45 05/15/17 00:44 Dextrose (Dextrose 50% 50ML Syringe) 25-50ML OF 50% DW IV FOR... UD PRN IV 04/15/17 00:45 05/15/17 00:44 Glucagon (Glucagon Inj) 1 mg UD PRN SQ 04/15/17 00:45 05/15/17 00:44 Atorvastatin Calcium (Lipitor Tab) 40 mg HS PO 04/15/17 21:00 05/15/17 20:59 04/16/17 20:19 40 MG Gabapentin (Neurontin Cap) 300 mg TID PO 04/15/17 08:00 05/15/17 08:59 04/17/17 09:23 300 MG Acetaminophen/ Hydrocodone Bitart ([place] 5/325 Tab) 1 tab Q6H PRN PO 04/15/17 00:45 04/29/17 00:44 04/17/17 12:00 1 TAB Levothyroxine Sodium (Synthroid Tab) 75 mcg DAILYBB PO 04/15/17 06:30 05/15/17 06:29 04/17/17 06:01 75 MCG Metoprolol Succinate (Toprol Xl Tab) 50 mg QAM PO 04/15/17 08:00 05/15/17 08:59 04/17/17 09:23 50 MG Ranitidine HCl (zANTac TAB) 150 mg BID17 PO 04/15/17 09:00 05/15/17 08:59 04/17/17 09:23 150 MG Sertraline HCl (Zoloft Tab) 200 mg HS PO 04/15/17 21:00 05/15/17 20:59 04/16/17 20:19 200 MG Trazodone HCl (Desyrel Tab) 100 mg HS PRN PO 04/15/17 00:45 05/15/17 00:44 Prochlorperazine Edisylate 5 mg/ Syringe 5 ml @ 5 mls/min Q6H PRN IV 04/15/17 00:45 05/15/17 00:44 04/17/17 12:25 5 MLS/MIN Morphine Sulfate (MoRPHine SULFATE INJ) 2 mg Q6H PRN IV 04/15/17 00:45 04/29/17 00:44 04/16/17 03:22 2 MG Miscellaneous (Iv Fluids Completed) 1 ea PRN PRN N/A 04/15/17 01:00 04/15/18 00:59 Enoxaparin Sodium (Lovenox Inj) 60 mg BID SQ 04/15/17 08:00 05/15/17 07:59 04/17/17 09:23 60 MG Miconazole Nitrate (Desenex Powder) 1 appln PRN PRN EXT 04/15/17 08:00 05/15/17 07:59 Lactated Ringer's 1,000 ml @ 60 mls/hr [id number] IV 04/15/17 18:40 05/15/17 18:39 04/17/17 02:26 60 MLS/HR Objective Vital Signs Date Time Temp Pulse Resp B/P (MAP) Pulse Ox O2 Delivery O2 Flow Rate FiO2 04/17/17 10:15 97 Room Air 04/17/17 09:15 Room Air 04/17/17 08:12 37.2 75 18 121/77 (92) 97 Room Air 04/17/17 04:26 37.0 78 18 130/83 (99) 97 Room Air 04/17/17 00:55 37.4 82 20 144/76 (98) 97 Room Air 04/17/17 00:20 Room Air 04/16/17 20:30 Room Air 04/16/17 20:11 36.9 62 16 109/70 (83) 96 Room Air 04/16/17 15:37 Room Air 04/16/17 14:56 36.9 69 18 100/67 (78) 99 Room Air Physical Exam General Appearance: no apparent distress Respiratory/Chest: no respiratory distress, no accessory muscle use Cardiovascular: regular rate, rhythm Neurologic/Psychiatric: no motor/sensory deficits, alert, normal mood/affect Laboratory Results Last 24 Hours Test 04/16/17 16:45 04/16/17 20:35 04/17/17 07:57 04/17/17 08:16 Bedside Glucose 97 mg/dl 88 mg/dl 99 mg/dl White Blood Count 5.41 K/uL Red Blood Count 2.98 M/uL Hemoglobin 8.8 g/dL Hematocrit 28.6 % Mean Corpuscular Volume 96.0 fL Mean Corpuscular Hemoglobin 29.5 pg Mean Corpuscular Hemoglobin Concent 30.8 g/dl RDW Standard Deviation 55.5 fL RDW Coefficient of Variation 15.7 % Platelet Count 67 K/uL Mean Platelet Volume 8.9 fL Sodium Level 139 mmol/L Potassium Level 3.3 mmol/L Chloride Level 107 mmol/L Carbon Dioxide Level 22 mmol/L Anion Gap 10.0 mmol/L Blood Urea Nitrogen 4 mg/dl Creatinine 0.40 mg/dl Est Creatinine Clear Calc Drug Dose 137.0 ml/min Estimated GFR () 132.1 Estimated GFR (Non- 114.0 BUN/Creatinine Ratio 10.0 Random Glucose 92 mg/dl Calcium Level 7.4 mg/dl Magnesium Level 1.8 mg/dl Test 04/17/17 11:45 Bedside Glucose 99 mg/dl Assessment and Plan This is a 61 year old female with a PMH of uterine CA s/p chemotherapy (last dose in December 2016), Factor V Leiden mutation and recent RUE DVT, HTN, depression, DM2, hypothyroidism, iron deficiency anemia, gastric bypass status - recent admission to [facility] [place] with hypotension, respiratory failure requiring ICU admission with intubation and mechanical ventilation - presents for nausea/ vomiting/diarrhea. Proctitis 04/17 plan is to d/c back to [facility] symptomatically feeling better refusing colonoscopy and wants conservative/symptomatic treatment only 04/16 appreciate GI input patient refusing colonoscopy at this time will consider palliative care consultation advance diet 04/[address] suggests rectal wall thickening there is a concern for neoplasm, vs. mets from uterine CA plan for colonoscopy on 04/[address] now will check labs in AM Metabolic Encephalopathy secondary to UTI 04/16 urine culture is negative will stop Zosyn 04/15 Patient with some confusion, this seems to be a persistent issue intermittent confusion; currently answers questions but slowly and takes more than one attempt to answer at times confused UA is dirty again currently on Zosyn; concern for VRE organism urine culture pending Multifactorial Anemia Iron Deficiency, B12 Deficiency, Chronic Disease 04/17 appreciate hem/onc input regarding pancytopenia WBC improving outpatient CBC in 3-4 days 04/16 patient with long-standing anemia, likely from her cancer as well as bariatric surgery Hgb on admission 9.8 monitor H/H and transfuse PRN Thrombocytopenia appreciate Hem/Onc input will monitor Hypothyroidism continue Synthroid 75mcg recheck TSH in 6 weeks as outpatient Uterine CA no longer receiving adjuvant chemotherapy due to mental status/diarrhea, etc. Brain MRI 03/30 - no acute process noted consulting hem/onc for further input; possible mets noted to rectum and liver Sinus Rhythm with Significant Artifact - stable Recent RUE DVT continue Lovenox 60mg BID FULL CODE as per patient, will need to discuss with daughter
--- NOTE | 2017-04-17 13:54 | Discharge Instructions ---
Discharge Instructions Date of Service Apr 17, 2017. Admission Reason for Admission: Altered Mental Status Discharge Discharge Diagnosis / Problem: Metabolic Encephalopathy, Pancytopenia Discharge Goals Goal(s): Decrease discomfort, Improve function, Diagnostic testing, Therapeutic intervention Activity Recommendations Activity Limitations: resume your previous activity . Instructions / Follow-Up Instructions / Follow-Up Please follow-up with primary care after stay at [facility] Should have CBC with Diff repeated in 4-5 days Current Hospital Diet Patient's current hospital diet: Regular Diet Discharge Diet Recommended Diet: Regular Diet Pending Studies Studies pending at discharge: no Laboratory Results Hemoglobin A1c Test 02/03/17 04:03 Range/Units Estimated Average Glucose 143 mg/dl Hemoglobin A1c 6.6 H 4.5-5.6 % Medical Emergencies . Who to Call and When: Medical Emergencies: If at any time you feel your situation is an emergency, please call 911 immediately. . Non-Emergent Contact Non-Emergency issues call your: Primary Care Provider . . "Provider Documentation" section prepared by Evita Escalante. . VTE Core Measure Inpt VTE Proph given/why not?: Enoxaparin (Lovenox)SQ
--- NOTE | 2017-04-17 13:59 | Discharge Summary ---
Discharge Summary Date of Service Apr 17, 2017. Discharge Summary Admission Date: Apr 15, 2017 at 07:16 Discharge Date: Apr 17, 2017 Discharge Disposition: assisted facility Principal Diagnosis: Pancytopenia Proctitis Metabolic Encephalopathy Medication Reconciliation Continued Medications: Acetaminophen (Tylenol) 500 Mg Tab 1000 MG PO Q6 PRN for Pain or Fever Alendronate Sodium (Fosamax) 70 Mg Tab 70 MG PO WK TAKE THIS MEDICATION EVERY THURSDAY WITH 8 OUNCES OF WATER, 30 MINUTES BEFORE FIRST MEAL OF THE DAY. REMAIN UPRIGHT FOR 30 MINUTES AFTER TAKING. Atorvastatin (Lipitor) 40 Mg Tab 40 MG PO HS Bisacodyl (Dulcolax) 10 Mg Sup 1 SUPP MT DAILY PRN for Constipation, SUP Calcium Carbonate (Tums) 500 Mg Chew 500 MG PO Q6H PRN for HEARTBURN/INDIGESTION Cholecalciferol (Vitamin D 1000 Unit) 1,000 Unit Cap 4000 INTER.UNIT PO DAILY Dextromethorphan-Guaifenesin (Siltussin-Dm) 1 Syp Syp 10 ML PO Q4H PRN for Cough Enoxaparin (Lovenox) 60 Mg/0.6 Ml Inj 60 MG INJ BID Enteral Nutrition Formula (Boost Plus) 1 Can Liqd 1 CAN PO DAILY Gabapentin (Neurontin) 300 Mg Cap 300 MG PO TID Hydrocodone/Acetaminophen 5MG/325MG (Atkins 5MG/325MG) Tab 1 TAB PO Q4 PRN for Moderate Pain for 30 Days, #90 TAB PRN PAIN Ipratropium-Albuterol (Duoneb) 3 Ml Nebu 1 TREATMENT INH Q4H PRN for Wheezing, INHA Levothyroxine Sodium (Levothyroxine Sodium) 75 Mcg Tab 75 MCG PO QAM for 90 Days, #90 TAB 3 Refills Lorazepam (Ativan) 0.5 Mg Tab 0.5 MG PO BID PRN for Anxiety/Agitation, TAB Menthol (Topical Analgesic) (Icy Hot) 7.5 % Mis 1 APPLN TD Q6H PRN for PAIN RIGHT SHOULDER Metoprolol Succ (Toprol Xl) (Toprol-Xl) 50 Mg Tabcr 50 MG PO QAM Miconazole Nitrate (Desenex Shake Powder) 90 Appln/90 Gm Powd 1 APPLN TD BID APPLIED TO ABD FOLDS. Ondansetron Hcl (Zofran) 8 Mg Tab 8 MG PO Q8, TAB Oseltamivir Phosphate (Tamiflu) 75 Mg Cap 75 MG PO QAM, #10 CAP STARTED 04/12/17 FOR 10 DAYS. Oxybutynin Chloride Er (Ditropan Xl) 10 Mg Tab 10 MG PO QAM, TAB Oxycodone Hcl (Oxycodone Hcl) 5 Mg Cap 5 MG PO TID PRN for Pain for 30 Days, #90 CAP Ranitidine Hcl (Zantac) 150 Mg Tab 150 MG PO BID17, TAB Sertraline (Zoloft) 100 Mg Tab 200 MG PO HS Sodium Phosphate/Biphosphate (Fleet Enema) Adela 1 EA MT DAILY PRN for Constipation, BTL Trazodone Hcl (Trazodone) 100 Mg Tab 100 MG PO HS PRN for Sleep, TAB Zinc Oxide (Topical) (Desitin) 40 % Oin 1 APPLN TD Q8 APPLY TO BUTTOCKS Discontinued Medications: Levofloxacin (Levaquin) 500 Mg Tab 500 MG PO DAILY for 7 Days, TAB STARTED 04/14/17 FOR 10 DAYS. Admission Information HPI (per Admitting provider): DATE OF ADMISSION: 04/15/2017 PRIMARY CARE DOCTOR: Dr. Evita Escalante. CHIEF COMPLAINT: Nausea, abdominal pain as per the patient, altered mental status as per records. HISTORY OF PRESENT ILLNESS: History obtained from patient, daughter, and records. Limited history from the patient secondary to confusion. Medical history significant for HTN, hyperlipidemia, paroxysmal atrial flutter as per records. DM2, diet controlled, uterine cancer status post chemotherapy, history of bariatric surgery, chronic anemia (baseline hemoglobin 9), right upper extremity DVT, ongoing Lovenox anticoagulation, hypercoagulable state, history of VRE UTI status post recent treatment Recent confinement 2 weeks ago for encephalopathy, VRE UTI. Patient discharged to [facility] for rehab on Zyvox Rx. As per records, yesterday the patient noted to have intermittent episodes of confusion -has happened during previous admissions at [facility] and hospital stays as per records. Visual hallucinations as per daughter. Patient complaining of achy epigastric pain, nausea, vomiting. Possible fever, no account of cough symptoms. Patient denies chest pain or shortness of breath. Outpatient Chest x-ray showed atelectasis, started on Levaquin for possible pneumonia Outpatient lab work showed thrombocytopenia, platelet count 124. Patient's family requested transfer to ER for evaluation. MEDICAL HISTORY: As above. SURGERIES: She has had section, gastric bypass surgery, hysteroscopy, hernia surgery, bilateral tubal ligation, knee surgery, cholecystectomy, liver biopsy. HOME MEDICATIONS: Include Fleet enema, trazodone, zinc oxide, Zofran, Ditropan, oxycodone, Zantac, Zoloft, levothyroxine, Ativan, Levaquin, metoprolol, Desenex, Lovenox 60 b.i.d., Boost, Neurontin, Vicodin, DuoNeb. Oxybutynin ALLERGIES: No known drug allergies. FAMILY HISTORY: Could not be obtained. PERSONAL AND SOCIAL HISTORY: Nonsmoker, no chronic intake of alcoholic beverages. Disabled. REVIEW OF SYSTEMS: Could not be reliably obtained. PHYSICAL EXAMINATION: VITAL SIGNS: Blood pressure was noted to be 108/70, pulse rate 80, RR 18, 36.3, sats 99 on room air. GENERAL: Noted to be disoriented, respiratory distress, obese. SKIN: Pallor, warm. HEENT: Alopecia. Pale palpebral conjunctivae. No ptosis. Dry mucosa. NECK: Short, supple. CHEST: Decreased effort. No tenderness. HEART: Regular rate and rhythm, no murmur. ABDOMEN: Some distention, epigastric tenderness. EXTREMITIES: Minimal LE edema noted. No gross deformities. No tenderness NEUROLOGIC: Disoriented. No gross focality. Gait and stance not assessed. LABORATORY DATA: Hemoglobin was noted to be 9.6, hematocrit 31.2, white cell count 3.35, platelets 129. Sodium 140, potassium 3.3, chloride 108, CO2 of 21, BUN 9, creatinine 0.6, glucose 80. Ammonia level was noted to be normal. Hemoglobin A1c from 01/[address] head, no acute pathology. Chest x-ray showed diminished lung volumes, cardiomegaly. EKG as per my interpretation NSR, LAD, LAFB, diffuse T-wave inversions ASSESSMENT: 1. Episodic encephalopathy ? Medication related (patient on some home neuro-psychotropic, anticholinergic home meds) Rule out urinary tract infection. (recent VRE sp tx) 2. Abdominal pain, nausea, vomiting rule out bowel obstruction. history multiple abdominal surgeries 3. Hypokalemia secondary to above 4. Thrombocytopenia, rule out heparin-induced thrombocytopenia. recent hx DVT ongoing anticoagulation with Lovenox. 5. Hypertension. Blood pressure on the lower side. 6. DM2, diet controlled, well controlled as of recent inpatient hemoglobin A1c. 7. Chronic anemia, hemoglobin at baseline. 8. Uterine cancer, status post incomplete chemotherapy secondary to intolerance. PLAN: OBS GMF CT abdomen and pelvis. Follow UA Hold home Neurontin, Trazodone, oxybutynin for sedation/confusion. (Home med rec may need inclusion of hold for sedation parameters for aforementioned home meds up on discharge.) Replace potassium. HIT screen. ISS BG goal 140-180 DVT prophylaxis, Lovenox subcutaneous if HIT screen negative Full code. Patient's daughter was updated on plan of care over the phone. Miss Nedra Mendes at [phone]. Hospital Course This is a 61 year old female with a PMH of uterine CA s/p chemotherapy (last dose in December 2016), Factor V Leiden mutation and recent RUE DVT, HTN, depression, DM2, hypothyroidism, iron deficiency anemia, gastric bypass status - recent admission to [facility] with hypotension, respiratory failure requiring ICU admission with intubation and mechanical ventilation - presents for nausea/ vomiting/diarrhea. Proctitis 04/17 plan is to d/c back to [facility] symptomatically feeling better refusing colonoscopy and wants conservative/symptomatic treatment only 04/16 appreciate GI input patient refusing colonoscopy at this time will consider palliative care consultation advance diet 04/[address] suggests rectal wall thickening there is a concern for neoplasm, vs. mets from uterine CA plan for colonoscopy on 04/[address] now will check labs in AM Metabolic Encephalopathy secondary to UTI 04/16 urine culture is negative will stop Zosyn 04/15 Patient with some confusion, this seems to be a persistent issue intermittent confusion; currently answers questions but slowly and takes more than one attempt to answer at times confused UA is dirty again currently on Zosyn; concern for VRE organism urine culture pending Multifactorial Anemia Iron Deficiency, B12 Deficiency, Chronic Disease 3 appreciate hem/onc input regarding pancytopenia WBC improving outpatient CBC in 3-4 days 04/16 patient with long-standing anemia, likely from her cancer as well as bariatric surgery Hgb on admission 9.8 monitor H/H and transfuse PRN Thrombocytopenia appreciate Hem/Onc input will monitor Hypothyroidism continue Synthroid 75mcg recheck TSH in 6 weeks as outpatient Uterine CA no longer receiving adjuvant chemotherapy due to mental status/diarrhea, etc. Brain MRI 03/30 - no acute process noted consulting hem/onc for further input; possible mets noted to rectum and liver Sinus Rhythm with Significant Artifact - stable Recent RUE DVT continue Lovenox 60mg BID FULL CODE as per patient, will need to discuss with daughter Total time spent on discharge = 45 minutes This includes examination of the patient, discharge planning, medication reconciliation, and communication with other providers. Discharge Instructions Please follow-up with primary care after stay at [facility] Should have CBC with Diff repeated in 4-5 days
[2017-04-17 15:00] VITALS: BP 121/77; PULSE 75; TEMP 37.2; O2SAT 97
[2017-04-17 15:20] VITALS: BP 103/67; PULSE 70; TEMP 36.7; O2SAT 96
== END 2017-04-17 17:15 | DRG 808 ==
LOC: EDBD 21:18 → C.EDB 21:21 → C.4E 04-15 00:31 → EDBEDREQSVC 04-15 00:42 → ENRESERV 04-15 00:57 → OBSVTOIN 04-15 07:16
PROVIDERS: ADMIT Internal Medicine; ATTEND Family Medicine
DX: D61.818 Other pancytopenia (principal); G93.41 Metabolic encephalopathy; D68.51 Activated protein C resistance; G92 Toxic encephalopathy; I48.0 Paroxysmal atrial fibrillation; T36.8X5A Adverse effect of other systemic antibiotics, initial encounter; E11.9 Type 2 diabetes mellitus without complications; T44.3X5A Adverse effect of other parasympatholytics [anticholinergics and antimuscarinics] and spasmolytics, initial encounter; E86.0 Dehydration; E53.8 Deficiency of other specified B group vitamins; E03.9 Hypothyroidism, unspecified; C55 Malignant neoplasm of uterus, part unspecified; Z96.653 Presence of artificial knee joint, bilateral; Z98.84 Bariatric surgery status; I10 Essential (primary) hypertension; E78.5 Hyperlipidemia, unspecified; E87.6 Hypokalemia; K62.7 Radiation proctitis; E61.1 Iron deficiency; Z86.718 Personal history of other venous thrombosis and embolism; M81.0 Age-related osteoporosis without current pathological fracture; Z80.49 Family history of malignant neoplasm of other genital organs; Y92.129 Unspecified place in nursing home as the place of occurrence of the external cause